=== PATIENT | male | born 1935 | race Caucasian/White ===

== ENCOUNTER 2018-04-01 09:49 | Day surgery (SDC) | payer MEDICARE, SELFPAY ==
--- NOTE | 2018-04-01 | PATH_ITS ---
[facility] Accession Number: [id number] . 01 Material submitted: . APPENDICILE ORIFICE . 02 Diagnosis: Appendiceal Orifice, Biopsy: Portions of colorectal mucosa with occasional lymphoid aggregates and no diagnostic abnormality. Additional levels through the block are non-contributory. MRV/04/07/2018 . 02 Electronically signed: . Amanda Zarco MD, Pathologist NPI- [id number] . 01 Gross description: . APPENDICILE ORIFICE: Received in formalin are 2 fragment(s) of mojica, soft tissue measuring 0.4 x 0.2 x 0.1 cm to 0.3 x 0.2 x 0.1 cm submitted entirely in 1 cassette(s) /TRC /TRC . 02 Pathologist provided ICD-10: K35.80 . 02 CPT . 431023 Performed at: 01 [facility] [address] [facility], [place], [place] [id number] MD Gilberto Reyes MD Phone: [phone] Performed at: 02 [facility] [place] [address] [place], [place] [id number] MD Wyatt Moreno MD Phone: [phone]
[2018-04-01 10:26] VITALS: BP 187/105; PULSE 53; RESP 16; TEMP 36.4; O2SAT 100; BMI 29.1
[2018-04-01] MEDS: SODIUM CHLORIDE 0.9% 1,000 ML 200 ML IV (10:35)
--- NOTE | 2018-04-01 11:03 | PM.HP.1 ---
History of Present Illness Chief complaint: [id number] Narrative: Lionel Adkins is a 82 year old male Last colonoscopy was probably 10 years ago. No history of polyps. No family history colon cancer. Patient History Medical History Bilateral cataracts (Resolved) Surgical History H/O endovascular stent graft for abdominal aortic aneurysm (Acute) History of appendectomy (Inactive) History of coronary artery bypass graft x 3 (Inactive) History of knee replacement procedure of right knee (Inactive) Hx laparoscopic cholecystectomy (Inactive) Meds Home Medications Medication Instructions Recorded Confirmed Type [CENTRAL-MARCUS] 1 tab PO QDAY #0 12/29/10 History ASPIRIN (#ASPIR 81) 81 mg PO Q DAY #0 03/28/12 04/01/18 History lisinopril 20 mg PO BID #180 tab 02/22/18 04/01/18 Rx hydrochlorothiazide 25 mg tablet 25 mg PO QDAY #90 tab 03/22/18 04/01/18 Rx atorvastatin 40 mg PO QDAY 04/01/18 04/01/18 History Allergies Allergy/AdvReac Type Severity Reaction Status Date / Time simvastatin [SIMVASTATIN] AdvReac Mild MUSCLE Verified 04/01/18 10:38 ACHES Review of Systems Review of Systems All systems reviewed & are unremarkable except as noted in HPI and below Exam Vital Signs (past 8 hours): Vital Signs - 8 hr 04/01/18 10:26 Temperature 97.5 F L Pulse Rate 53 L Respiratory Rate 16 Blood Pressure 187/105 H Pulse Oximetry 100 Pulse Oximetry 100 Narrative Exam Narrative: No apparent distress. Lungs are clear to auscultation without rales or rhonchi heart regular rate and rhythm without murmur gallop abdomen soft nontender without mass patient is alert and oriented x3 Assessment & Plan Plan: Plan: I have discussed the procedure and the rationale with the patient including risks of bleeding, perforation which would necessitate a major operation, failure to find remove all lesions and the potential to tattoo. They appeared to understand and wished to proceed.
--- NOTE | 2018-04-01 11:11 | P.HP_ITS ---
History of Present Illness Chief complaint: [id number] Narrative: Lionel Adkins is a 82 year old male Last colonoscopy was probably 10 years ago. No history of polyps. No family history colon cancer. Patient History Medical History Bilateral cataracts (Resolved) Surgical History H/O endovascular stent graft for abdominal aortic aneurysm (Acute) History of appendectomy (Inactive) History of coronary artery bypass graft x 3 (Inactive) History of knee replacement procedure of right knee (Inactive) Hx laparoscopic cholecystectomy (Inactive) Meds Home Medications Medication Instructions Recorded Confirmed Type [CENTRAL-MARCUS] 1 tab PO QDAY #0 12/29/10 History ASPIRIN (#ASPIR 81) 81 mg PO Q DAY #0 03/28/12 04/01/18 History lisinopril 20 mg PO BID #180 tab 02/22/18 04/01/18 Rx hydrochlorothiazide 25 mg tablet 25 mg PO QDAY #90 tab 03/22/18 04/01/18 Rx atorvastatin 40 mg PO QDAY 04/01/18 04/01/18 History Allergies Allergy/AdvReac Type Severity Reaction Status Date / Time simvastatin [SIMVASTATIN] AdvReac Mild MUSCLE Verified 04/01/18 10:38 ACHES Review of Systems Review of Systems All systems reviewed & are unremarkable except as noted in HPI and below Exam Vital Signs (past 8 hours): Vital Signs - 8 hr 3 04/01/18 10:26 Temperature 97.5 F L Pulse Rate 53 L Respiratory Rate 16 Blood Pressure 187/105 H Pulse Oximetry 100 Pulse Oximetry 100 Narrative Exam Narrative: No apparent distress. Lungs are clear to auscultation without rales or rhonchi heart regular rate and rhythm without murmur gallop abdomen soft nontender without mass patient is alert and oriented x3 Assessment & Plan Plan: Plan: I have discussed the procedure and the rationale with the patient including risks of bleeding, perforation which would necessitate a major operation, failure to find remove all lesions and the potential to tattoo. They appeared to understand and wished to proceed.
--- NOTE | 2018-04-01 11:11 | PM.PREOP ---
Pre-operative Note Interval Note Pre-op Check: History & Physical exam performed today H&P completed within 30 days and has changed as indicated here:: None ASA Class (for procedural sedation): II
[2018-04-01] MEDS: fentaNYL 250 MCG/5 ML INJ IV (11:34)
[2018-04-01] MEDS: MIDAZOLAM 5 MG/5 ML VIAL IV (11:35)
--- NOTE | 2018-04-01 11:37 | PM.OP.ENDO ---
Operative Date/Time/Diagnoses - Date of procedure: 04/01/18 Time of procedure: 11:37 Pre-op diagnosis: Screening examination. Last exam over 10 years ago. Post-op diagnosis: same (Slight irregular area of the cecum biopsied. May just be normal variant.) Procedure & Clinicians Study performed: Colonoscopy with cold biopsy Same procedure as scheduled: Yes Indications: Screening Surgeon: Vicente Santoro Procedure Notes SCOAP/Timeout: Performed Procedure in detail: The patient was placed in the left lateral decubitus position and underwent IV sedation directed by the surgeon consisting of fentanyl and Versed. Digital exam was normal. Prostate was flat.. The scope was inserted and advanced through the rectum into the sigmoid, descending, transverse, and ascending colon. I noted no lesions.. The cecum was reached identified by the ileocecal valve and the appendiceal opening. There was a slight irregularity in the cecum which I biopsied. Significance is unclear and may just be a normal variant. The scope was gradually brought out. No Polyps were found. The scope ultimately was retroflexed in the rectum. The appearance was[significant for internal hemorrhoids without ulceration.]. The scope was removed and the patient tolerated the procedure well Scope withdrawal time: 7 min Sedation minutes: 22 Findings: internal hemorrhoids Specimen(s): other (Cecal biopsy) Recommendations: Other recommendation (If cecal biopsies are not neoplastic patient does not need another colonoscopy.) Plan for aftercare: Follow-up by letter. Prep was excellent. Follow up: as needed Disposition: PACU
[2018-04-01 11:40] VITALS: BP 176/97; PULSE 53; RESP 12; TEMP 36.6; O2SAT 97
[2018-04-01 11:45] VITALS: BP 172/98; PULSE 53; RESP 13; O2SAT 97
[2018-04-01 11:50] VITALS: BP 178/92; PULSE 52; RESP 13; O2SAT 97
[2018-04-01 11:54] VITALS: BP 150/86; PULSE 65; RESP 16; TEMP 36.4; O2SAT 98
[2018-04-01 12:05] VITALS: BP 155/84; PULSE 54; RESP 15; TEMP 35.9; O2SAT 99
== END 2018-04-01 12:29 ==
LOC: ENDO 09:52
PROVIDERS: PCP Family Medicine; Visit Provider Specialist
PROC: 0DJD8ZZ Inspection of Lower Intestinal Tract, Via Natural or Artificial Opening Endoscopic (ICD-10-PCS; CPT 45378; principal; 2018-04-01 10:45)
DX: Z12.11 Encounter for screening for malignant neoplasm of colon (principal); K64.8 Other hemorrhoids
CPT/HCPCS: 45380; 88305; 99152; J2250; J3010

== ENCOUNTER → 2018-08-03 08:38 | Outpatient (CLI) | payer MEDICARE, SELFPAY ==
[2018-08-03 11:09] LABS: Estimated Glomerular Filt Rate > 60.0 mL/min (>60)
== END ==
PROVIDERS: Family Provider Internal Medicine Cardiovascular Disease; PCP Family Medicine; Visit Provider Student in an Organized Health Care Education/Training Program
DX: I71.4 Abdominal aortic aneurysm, without rupture (principal)
CPT/HCPCS: 36415; 82565

== ENCOUNTER → 2018-11-10 16:36 | Outpatient (CLI) | payer MEDICARE, SELFPAY ==
--- NOTE | 2018-11-10 16:44 | DI.RAD.S_ITS ---
PROCEDURE: XR KNEE LT 3V INDICATIONS: knee pain TECHNIQUE: 3 views of the knee were acquired. COMPARISON: [facility], , KNEE 1-2 VIEWS RIGHT, 12/29/2010, 13:06. FINDINGS: Bones: No fractures or dislocations. No suspicious bony lesions. There is mild medial compartment narrowing. Soft tissues: No joint effusion. No suspicious soft tissue calcifications. IMPRESSION: Trace degenerative change. No acute radiographic findings. If there is continued pain, followup exam or additional imaging such as MRI or CT could be performed for further assessment. Dictated by: Shabnam Smalls M.D. on 11/10/2018 at 17:00 Approved by: Shabnam Smalls M.D. on 11/10/2018 at 17:00
== END ==
PROVIDERS: Family Provider Internal Medicine Cardiovascular Disease; PCP Family Medicine; Visit Provider Family Medicine
DX: M25.562 Pain in left knee (principal)
CPT/HCPCS: 73562

== ENCOUNTER → 2019-01-13 09:40 | Outpatient (CLI) | payer MEDICARE, SELFPAY ==
--- NOTE | 2019-01-13 | DI.NM.S_ITS ---
PROCEDURE: NM BONE 3 PHASE RADIOPHARMACEUTICAL: 20.9 mCi Tc-99m MDP IV. INDICATIONS: PRESENCE OF RIGHT ARTIFICAL KNEE JOINT TECHNIQUE: Multiple bone scintigrams were obtained after intravenous injection of Tc-99m MDP, including flow, blood pool, and delayed images centered to the region of interest. COMPARISON: [facility] [place], CR, XR KNEE ARTHRITIC SERIES RT, 01/02/2019, 7:46. [facility], CR, XR KNEE LT 3V, 11/10/2018, 16:45. FINDINGS: A triple phase bone scan was obtained, including flow, blood pool and delayed images centered to knees. The flow and blood pool images demonstrate increased vascular activity around the left knee compared to the right knee. Delayed images demonstrate increased activity around the left knee, centered at the medial femorotibial compartment and patellofemoral compartment. There is photopenia in right knee related to right knee arthroplasty. There is low level increased activity around the right knee prosthesis, most likely post surgical in nature. IMPRESSION: 1. Increased flow, blood pool and delayed activity around the left knee. Differential diagnosis includes inflammatory arthritis and infectious etiology such as septic joint superimposed on degenerative joint disease. The comparison x-ray on 11/10/2008 showed mild degenerative joint disease and possible left knee joint effusion. Recommend clinical correlation. 2. Increased uptake around the right knee prosthesis is compatible with postsurgical changes. Dictated by: Toñito Clark M.D. on 01/13/2019 at 15:38 Approved by: Toñito Clark M.D. on 01/13/2019 at 17:47
== END ==
PROVIDERS: Family Provider Internal Medicine Cardiovascular Disease; PCP Family Medicine; Visit Provider Orthopaedic Surgery
DX: M17.11 Unilateral primary osteoarthritis, right knee (principal); Z96.651 Presence of right artificial knee joint
CPT/HCPCS: 78315; A9503

== ENCOUNTER → 2020-03-29 07:49 | Outpatient (CLI) | payer MEDICARE, SELFPAY ==
[2020-03-29 09:09] LABS: Estimated Glomerular Filt Rate > 60.0 mL/min (>60)
== END ==
PROVIDERS: Family Provider Internal Medicine Cardiovascular Disease; PCP Family Medicine; Referring Provider Student in an Organized Health Care Education/Training Program; Visit Provider Student in an Organized Health Care Education/Training Program
DX: I71.4 Abdominal aortic aneurysm, without rupture (principal)
CPT/HCPCS: 82565

== ENCOUNTER → 2020-03-29 07:55 | Outpatient (CLI) | payer MEDICARE, SELFPAY ==
[2020-03-29 09:10] LABS: Alanine Aminotransferase 15 IU/L (<50); Albumin 3.9 g/dL (3.5-5.0); Albumin Globulin Ratio 1.4 (1.0-2.8); Alkaline Phosphatase 92 U/L (38-126); Aspartate Aminotransferase 37 IU/L (17-59); Blood Urea Nitrogen 22 mg/dL (9-20); Calcium 9.8 mg/dL (8.4-10.2); Carbon Dioxide 32 mmol/L (22-32); Chloride 102 mmol/L (98-107); Cholesterol 126 mg/dL (140-199); Estimated Glomerular Filt Rate > 60.0 mL/min (>60); Globulin 2.8 g/dL (1.7-4.1); Glucose 105 mg/dL (80-110); HDL Cholesterol 40 mg/dL (40-60); HEMOLYSIS < 15 (0-50); LDL Cholesterol Calculated 69 mg/dL (<100); Potassium 4.1 mmol/L (3.4-5.1); Sodium 140 mmol/L (137-145); Total Protein 6.7 g/dL (6.3-8.2); Triglycerides 83 mg/dL (35-150)
== END ==
PROVIDERS: Family Provider Internal Medicine Cardiovascular Disease; PCP Family Medicine; Referring Provider Internal Medicine Cardiovascular Disease; Visit Provider Internal Medicine Cardiovascular Disease
DX: I25.10 Atherosclerotic heart disease of native coronary artery without angina pectoris (principal); I71.4 Abdominal aortic aneurysm, without rupture
CPT/HCPCS: 36415; 80053; 80061; 82565

== ENCOUNTER → 2020-04-02 08:00 | Outpatient (CLI) | payer MEDICARE, SELFPAY ==
--- NOTE | 2020-04-02 | DI.ECHO.S_ITS ---
[facility]---------+ [facility] +---------+ : : [address] : : : : [id number] : : : : Phone: [phone] Echocardiogram Report + + :Name: MINA AC Study Date: 04/02/2020 Height: 72 in : :[facility] Weight: 212 lb : : Gender: Male BSA: 2.2 m2 : :: 1935 Age: 84 yrs BP: 156/80 mmHg: :Reason For Study: Ascending aorta dialation : :Ordering Physician: Fatmata : :Peter Velázquez Performed By: Berta Kurtz : :Referring: FATMATA GREEN : + + Interpretation Summary The left ventricle is normal in size. The ejection fraction is estimated to be 50-55%. Left ventricular function has slightly worsened compared to the previous exam. There appears to be more pronounced hypokinesis in the basal inferior wall. This is more obvious in comparison to prior study on 03/17/2019. The aortic root is borderline dilated. The ascending aorta is moderately enlarged. Procedure: Comparison is made with the echocardiogram of 03/17/2019. A two- dimensional transthoracic echocardiogram with color flow and Doppler was performed in limited views only. The study quality was technically adequate. The patient was in sinus bradycardia with heart rates between 51-62 bpm during the exam. Left Ventricle: The left ventricle is normal in size. Left ventricular wall thickness is borderline increased. The ejection fraction is estimated to be 50-55%. Left ventricular function has slightly worsened compared to the previous exam. There appears to be more pronounced hypokinesis in the basal inferior wall. This is more obvious in comparison to prior study on 03/17/2019. Atria: The left atrium is mildly dilated. The right atrium is mildly dilated. Aortic Valve: The aortic valve is trileaflet. The aortic valve opens well. There is mild aortic regurgitation. Great Vessels: The aortic root is borderline dilated. The ascending aorta is moderately enlarged. The aortic arch is normal in size. Pericardium/ Pleura There is no pericardial effusion. There is no pleural effusion. MMode/2D Measurements & Calculations LVIDd: 5.7 cm LVOT diam: 2.1 cm LVIDs: 4.0 cm Ao root diam: 4.0 cm FS: 28.8 % asc Aorta Diam: 4.5 cm IVSd: 1.1 cm Ao Arch Diam (Prox Trans): 3.0 cm LVPWd: 0.92 cm LV abel. diameter/BSA (cm/m^2): 2.6 LV sys. diameter/BSA (cm/m^2): 1.9 LA A2 area: 23.2 cm2 RA long axis: 6.3 cm LA A4 area: 23.4 cm2 RA area: 24.9 cm2 LA length (vol): 5.9 cm RA vol: 83.7 ml LA vol: 77.8 ml RA : 38.3 ml/m2 LA vol index: 35.6 ml/m2 Doppler Measurements & Calculations Ao V2 max: 110.5 cm/sec LVOT Max Yung: 75.7 cm/sec Ao V2 mean: 74.7 cm/sec LV V1 max P.3 mmHg Ao max P.9 mmHg LV V1 VTI: 17.3 cm Ao mean P.6 mmHg ISAEL(I,D): 2.4 cm2 Ao V2 VTI: 24.8 cm ISAEL(V,D): 2.3 cm2 sev ratio: 0.70 ISAEL indexed to BSA (cm^2/m^2): 1.1 SV(LVOT): 58.7 ml Reading Physician:01:13 PM
== END ==
PROVIDERS: Family Provider Internal Medicine Cardiovascular Disease; PCP Family Medicine; Referring Provider Internal Medicine Cardiovascular Disease; Visit Provider Internal Medicine Cardiovascular Disease
DX: I07.1 Rheumatic tricuspid insufficiency (principal); I77.810 Thoracic aortic ectasia
CPT/HCPCS: 93307

== ENCOUNTER → 2020-06-13 10:00 | Outpatient (CLI) | payer MEDICARE, SELFPAY ==
[2020-06-13 12:40] LABS: Prostate Specific Antigen Scrn 4.55 ng/mL (0.1-4.0)
== END ==
PROVIDERS: Family Provider Internal Medicine Cardiovascular Disease; PCP Family Medicine; Referring Provider Family Medicine; Visit Provider Family Medicine
DX: I25.10 Atherosclerotic heart disease of native coronary artery without angina pectoris (principal); Z12.5 Encounter for screening for malignant neoplasm of prostate
CPT/HCPCS: 36415; G0103

== ENCOUNTER → 2020-09-12 17:02 | Outpatient (CLI) | payer MEDICARE, SELFPAY ==
[2020-09-13 07:36] LABS: PSA Free % 18.3 % (.); PSA, Total 5.4 ng/mL (0.0-4.0)
== END ==
PROVIDERS: Family Provider Internal Medicine Cardiovascular Disease; PCP Family Medicine; Referring Provider Family Medicine; Visit Provider Family Medicine
DX: R97.20 Elevated prostate specific antigen [PSA] (principal)
CPT/HCPCS: 36415; 84153; 84154

== ENCOUNTER → 2020-11-19 11:16 | Outpatient (CLI) | payer MEDICARE, SELFPAY ==
--- NOTE | 2020-11-19 11:20 | DI.RAD.S_ITS ---
PROCEDURE: XR RIBS LT MIN 3V W CXR1V INDICATIONS: pain and TTP L lower posterior ribs s/p trauma 6 days ago TECHNIQUE: To views of the left ribs were acquired, along with a single view chest. COMPARISON: None. FINDINGS: Surgical changes and devices: Prior sternotomy wires, presumed prior CABG. Aortic stent graft partially visualized at the upper abdomen.. Bones and chest wall: No fractures or dislocations. No suspicious bony lesions. Overlying soft tissues appear unremarkable. Lungs and pleura: No pleural effusions or pneumothorax. Lungs appear clear. Mediastinum: Mediastinal contours appear normal. Heart size is normal. IMPRESSION: No definite rib trauma found. Please note that acute rib fractures may not be identifiable initially on less significantly displaced. Follow-up plain films may be warranted. Dictated by: Anson Medrano M.D. on 11/19/2020 at 12:10 Approved by: Anson Medrano M.D. on 11/19/2020 at 12:11
--- NOTE | 2020-11-19 11:20 | DI.RAD.S_ITS ---
PROCEDURE: XR KNEE LT 3V INDICATIONS: knee pain TECHNIQUE: 3 views of the knee were acquired. COMPARISON: [facility], [facility], XR KNEE LT 3V, 11/10/2018, 16:45. [facility], [facility], KNEE 1-2 VIEWS RIGHT, 12/29/2010, 13:06. FINDINGS: Bones: No fractures or dislocations. No suspicious bony lesions. Soft tissues: No joint effusion. No suspicious soft tissue calcifications. IMPRESSION: Mild medial compartment joint space narrowing, mild osteoarthritis. No trauma. Dictated by: Anson Medrano M.D. on 11/19/2020 at 12:19 Approved by: Anson Medrano M.D. on 11/19/2020 at 12:58
== END ==
PROVIDERS: Family Provider Internal Medicine Cardiovascular Disease; PCP Internal Medicine; Referring Provider Internal Medicine; Visit Provider Registered Nurse Diabetes Educator
DX: M25.562 Pain in left knee (principal); M17.12 Unilateral primary osteoarthritis, left knee; R07.81 Pleurodynia; E78.2 Mixed hyperlipidemia; I10 Essential (primary) hypertension; R97.20 Elevated prostate specific antigen [PSA]
CPT/HCPCS: 71101; 73562

== ENCOUNTER → 2020-11-20 08:26 | Outpatient (CLI) | payer MEDICARE, SELFPAY ==
[2020-11-20 08:41] LABS: Hematocrit 42.5 % (41-53); Hemoglobin 14.3 g/dL (13.5-17.5); Mean Corpuscular HGB Conc 33.6 % (30-36); Mean Corpuscular Hemoglobin 30.7 PG (26-34); Mean Corpuscular Volume 91.3 fL (80-100); Platelet Count 160 X10^3/uL (150-400); Red Blood Cell Count 4.65 X10^6/uL (4.5-5.9); Red Cell Distribution Width 13.7 % (11.6-14.8); White Blood Cell Count 8.2 X10^3/uL (4.5-11.0)
[2020-11-20 08:50] LABS: Appearance Urine UA CLEAR; Bilirubin Urine UA NEGATIVE (NEGATIVE); Color Urine UA YELLOW; Glucose Urine UA NEGATIVE (Negative); Ketones Urine UA NEGATIVE (NEGATIVE); Leukocyte Esterase Urine UA NEGATIVE (NEGATIVE); Nitrite Urine UA NEGATIVE (Negative); Occult Blood Urine UA 3+ (Negative); Protein Urine UA TRACE (Negative); Urobilinogen Urine UA 0.2 E.U./dL (0.2)
[2020-11-20 09:03] LABS: Bacteria Urine Moderate (10-30); Culture Indicated Urine Cult Not Indicated; Hyaline Casts Urine 1-5/LPF; Mucus Urine 1+ (Negative); RBC Urine 10-30/HPF (0-5/HPF); Squamous Epithelial Cell Urine 0-1 /HPF (0-5/HPF); WBC Urine 1-5/HPF (0-5/HPF)
[2020-11-20 15:53] LABS: Alanine Aminotransferase 19 IU/L (<50); Albumin 3.7 g/dL (3.5-5.0); Albumin Globulin Ratio 1.6 (1.0-2.8); Alkaline Phosphatase 85 U/L (38-126); Aspartate Aminotransferase 35 IU/L (17-59); BUN Creatinine Ratio 23.8 (6-22); Bilirubin Total 0.6 mg/dL (0.2-1.3); Blood Urea Nitrogen 24 mg/dL (9-20); Calcium 9.5 mg/dL (8.4-10.2); Carbon Dioxide 34 mmol/L (22-32); Chloride 102 mmol/L (98-107); Cholesterol 129 mg/dL (140-199); Estimated Glomerular Filt Rate > 60.0 mL/min (>60); Globulin 2.3 g/dL (1.7-4.1); Glucose 125 mg/dL (80-110); HDL Cholesterol 41 mg/dL (40-60); HEMOLYSIS < 15 (0-50); LDL Cholesterol Calculated 46 mg/dL (<100); Potassium 3.5 mmol/L (3.4-5.1); Sodium 139 mmol/L (137-145); Triglycerides 210 mg/dL (35-150)
[2020-11-20 16:23] LABS: Prostate Specific Antigen 6.55 ng/mL (0.10-4.00)
== END ==
PROVIDERS: Registered Nurse Diabetes Educator; Family Provider Internal Medicine Cardiovascular Disease; PCP Internal Medicine; Referring Provider Internal Medicine; Visit Provider Internal Medicine
DX: R10.9 Unspecified abdominal pain (principal); E78.2 Mixed hyperlipidemia; R82.71 Bacteriuria; I10 Essential (primary) hypertension; R97.20 Elevated prostate specific antigen [PSA]; Z12.5 Encounter for screening for malignant neoplasm of prostate
CPT/HCPCS: 36415; 80053; 80061; 81001; 84153; 85027; 87086

== ENCOUNTER → 2020-11-21 09:41 | Outpatient (CLI) | payer MEDICARE, SELFPAY ==
--- NOTE | 2020-11-21 09:45 | DI.CT.S_ITS ---
PROCEDURE: CT ABDOMEN PELVIS WO/W CON INDICATIONS: trauma to L flank 7 days ago/pain/hematuria TECHNIQUE: After the administration of oral contrast, 5 mm thick sections acquired from the diaphragms to the iliac crests. After the administration of intravenous contrast, 5 mm thick sections acquired from the diaphragms to the symphysis. 5 mm thick coronal and sagittal reformats were acquired. For radiation dose reduction, the following was used: automated exposure control, adjustment of mA and/or kV according to patient size. COMPARISON: None. FINDINGS: Image quality: Excellent. ABDOMEN: Lung bases: Lung bases are clear. Heart size is normal. Solid organs: Liver is normal in size and enhancement. There is a 1.8 cm cyst within the superior left liver parenchyma between the confluence of the left and middle hepatic veins Gallbladder appears previously resected . Biliary system is non-dilated. Pancreas enhances normally. Spleen is normal in size and enhancement. No adrenal nodules. Both kidneys are normal in size. No hydronephrosis or nephrolithiasis. Bowel and peritoneum: Stomach, small and large bowel loops are normal in caliber and wall thickness. No free fluid or air. Nodes and vessels: No retroperitoneal or mesenteric adenopathy by size criteria. Aorta and inferior vena are normal in caliber. An aortic stent graft is present extending from the renal level inferiorly into the pelvis bilaterally Miscellaneous: No ventral hernias. PELVIS: Genitourinary: Bladder wall thickness is normal. Miscellaneous: No inguinal hernias or adenopathy. Bones: No suspicious bony lesions. No vertebral body compression fractures. IMPRESSION: No trauma found, no evidence of perinephric hematoma. Aortic stent graft, bifurcating into the pelvis bilaterally. No operative complication seen. Dictated by: Anson Medrano M.D. on 11/21/2020 at 11:02 Approved by: Anson Medrano M.D. on 11/21/2020 at 11:04
== END ==
PROVIDERS: Family Provider Internal Medicine Cardiovascular Disease; PCP Internal Medicine; Referring Provider Registered Nurse Diabetes Educator; Visit Provider Registered Nurse Diabetes Educator
DX: S39.91XA Unspecified injury of abdomen, initial encounter (principal); R10.9 Unspecified abdominal pain; R31.29 Other microscopic hematuria; X58.XXXA Exposure to other specified factors, initial encounter
CPT/HCPCS: 74178; Q9967

== ENCOUNTER → 2021-03-25 08:30 | Outpatient (CLI) | payer MEDICARE, SELFPAY ==
[2021-03-25 10:38] LABS: Prostate Specific Antigen 5.04 ng/mL (0.10-4.00)
== END ==
PROVIDERS: Family Provider Internal Medicine Cardiovascular Disease; PCP Internal Medicine; Referring Provider Internal Medicine; Visit Provider Internal Medicine
DX: R97.20 Elevated prostate specific antigen [PSA] (principal)
CPT/HCPCS: 36415; 84153

== ENCOUNTER → 2021-09-26 09:35 | Outpatient (CLI) | payer MEDICARE, SELFPAY ==
[2021-09-26 12:10] LABS: Alanine Aminotransferase 14 IU/L (<50); Albumin 3.9 g/dL (3.5-5.0); Albumin Globulin Ratio 1.6 (1.0-2.8); Alkaline Phosphatase 93 U/L (38-126); Aspartate Aminotransferase 29 IU/L (17-59); BUN Creatinine Ratio 21.4 (6-22); Bilirubin Total 0.9 mg/dL (0.2-1.3); Blood Urea Nitrogen 21 mg/dL (9-20); Calcium 9.8 mg/dL (8.4-10.2); Carbon Dioxide 33 mmol/L (22-32); Chloride 100 mmol/L (98-107); Cholesterol 120 mg/dL (140-199); Estimated Glomerular Filt Rate > 60.0 mL/min (>60); Globulin 2.4 g/dL (1.7-4.1); Glucose 95 mg/dL (80-110); HDL Cholesterol 45 mg/dL (40-60); HEMOLYSIS < 15 (0-50); LDL Cholesterol Calculated 61 mg/dL (<100); Potassium 3.8 mmol/L (3.4-5.1); Sodium 140 mmol/L (137-145); Total Protein 6.3 g/dL (6.3-8.2); Triglycerides 68 mg/dL (35-150)
[2021-09-26 12:31] LABS: Prostate Specific Antigen 9.31 ng/mL (0.10-4.00)
== END ==
PROVIDERS: Family Provider Internal Medicine Cardiovascular Disease; PCP Internal Medicine; Referring Provider Internal Medicine; Visit Provider Internal Medicine
DX: E78.2 Mixed hyperlipidemia (principal); R97.20 Elevated prostate specific antigen [PSA]; I10 Essential (primary) hypertension
CPT/HCPCS: 36415; 80053; 80061; 84153

== ENCOUNTER → 2022-03-20 07:57 | Outpatient (CLI) | payer MEDICARE, SELFPAY ==
[2022-03-20 08:56] LABS: Cholesterol 116 mg/dL (140-199); HDL Cholesterol 42 mg/dL (40-60); LDL Cholesterol Calculated 59 mg/dL (<100); Triglycerides 75 mg/dL (35-150)
== END ==
PROVIDERS: Family Provider Internal Medicine Cardiovascular Disease; PCP Internal Medicine; Referring Provider Internal Medicine Cardiovascular Disease; Visit Provider Internal Medicine Cardiovascular Disease
DX: E78.2 Mixed hyperlipidemia (principal)
CPT/HCPCS: 36415; 80061

== ENCOUNTER → 2022-04-03 10:58 | Outpatient (CLI) | payer MEDICARE, SELFPAY ==
[2022-04-03 12:15] LABS: Alanine Aminotransferase 13 IU/L (<50); Albumin 3.9 g/dL (3.5-5.0); Albumin Globulin Ratio 1.6 (1.0-2.8); Alkaline Phosphatase 81 U/L (38-126); Aspartate Aminotransferase 32 IU/L (17-59); BUN Creatinine Ratio 28.9 (6-22); Blood Urea Nitrogen 26 mg/dL (9-20); Calcium 9.4 mg/dL (8.4-10.2); Carbon Dioxide 30 mmol/L (22-32); Chloride 103 mmol/L (98-107); Estimated Glomerular Filt Rate > 60 mL/min (>60); Globulin 2.5 g/dL (1.7-4.1); Glucose 100 mg/dL (80-110); HEMOLYSIS < 15 (0-50); Potassium 3.9 mmol/L (3.4-5.1); Sodium 139 mmol/L (137-145); Total Protein 6.4 g/dL (6.3-8.2)
== END ==
PROVIDERS: Family Provider Internal Medicine Cardiovascular Disease; PCP Internal Medicine; Referring Provider Internal Medicine Cardiovascular Disease; Visit Provider Internal Medicine Cardiovascular Disease
DX: E78.2 Mixed hyperlipidemia (principal)
CPT/HCPCS: 36415; 80053

== ENCOUNTER → 2022-05-09 08:54 | Outpatient (CLI) | payer MEDICARE, SELFPAY ==
[2022-05-09 11:47] LABS: Prostate Specific Antigen 7.69 ng/mL (0.10-4.00)
== END ==
PROVIDERS: Family Provider Internal Medicine Cardiovascular Disease; PCP Internal Medicine; Referring Provider Urology; Visit Provider Urology
DX: R97.20 Elevated prostate specific antigen [PSA] (principal)
CPT/HCPCS: 36415; 84153

== ENCOUNTER → 2022-05-20 13:07 | Outpatient (CLI) | payer MEDICARE, SELFPAY ==
[2022-05-20 13:34] LABS: Appearance Urine UA CLEAR; Bilirubin Urine UA NEGATIVE (NEGATIVE); Color Urine UA YELLOW; Glucose Urine UA NEGATIVE (Negative); Ketones Urine UA NEGATIVE (NEGATIVE); Leukocyte Esterase Urine UA TRACE (NEGATIVE); Nitrite Urine UA NEGATIVE (Negative); Occult Blood Urine UA 1+ (Negative); Protein Urine UA TRACE (Negative); Urobilinogen Urine UA 0.2 E.U./dL (0.2); pH Urine UA 5.5 (4.5-8.0)
[2022-05-20 13:39] LABS: RBC Urine 5-10/HPF (0-5/HPF); WBC Urine 1-5/HPF (0-5/HPF)
[2022-05-20 13:40] LABS: Bacteria Urine None Seen; Culture Indicated Urine Cult Not Indicated; Squamous Epithelial Cell Urine 5-10 /HPF (0-5/HPF)
== END ==
PROVIDERS: Family Provider Internal Medicine Cardiovascular Disease; PCP Internal Medicine; Referring Provider Urology; Visit Provider Urology
DX: R31.29 Other microscopic hematuria (principal)
CPT/HCPCS: 81003; 81015

== ENCOUNTER → 2022-05-26 11:44 | Outpatient (CLI) | payer MEDICARE, SELFPAY ==
[2022-05-26 12:53] LABS: Appearance Urine UA CLEAR; Bilirubin Urine UA NEGATIVE (NEGATIVE); Color Urine UA YELLOW; Glucose Urine UA NEGATIVE (Negative); Ketones Urine UA NEGATIVE (NEGATIVE); Leukocyte Esterase Urine UA NEGATIVE (NEGATIVE); Nitrite Urine UA NEGATIVE (Negative); Occult Blood Urine UA TRACE-LYSED (Negative); Protein Urine UA NEGATIVE (Negative); Specific Gravity Urine UA 1.015 (1.000-1.035); Urobilinogen Urine UA 0.2 E.U./dL (0.2); pH Urine UA 5.5 (4.5-8.0)
== END ==
PROVIDERS: Family Provider Internal Medicine Cardiovascular Disease; PCP Internal Medicine; Referring Provider Urology; Visit Provider Urology
DX: R31.29 Other microscopic hematuria (principal)
CPT/HCPCS: 81003

== ENCOUNTER → 2022-09-08 15:57 | Outpatient (CLI) | payer MEDICARE, SELFPAY ==
--- NOTE | 2022-09-08 15:58 | DI.MRI.S_ITS ---
PROCEDURE: MR LUMBAR SPINE WO CON INDICATIONS: LBP with RIght L4 radic, Waling intolerance TECHNIQUE: Noncontrast sagittal T1 spin echo and T2 fast echo, sagittal STIR, and T2 fast spin echo through the lumbar spine. In cases with scoliosis, additional coronal T2 fast spin echo may be performed. COMPARISON: [facility] [place], CR, XR LUMBAR SPINE 2 OR 3 VIEWS, 07/24/2021, 13:33. FINDINGS: Image quality: Degraded by metallic artifact and motion Alignment: 3-4 millimeters of C2 on C3 retrolisthesis and 2-3 millimeters of C3 on C4 retrolisthesis. 4-5 millimeters of C4 on C5 anterolisthesis. Marrow: No acute fracture. Scattered Modic changes and disc desiccation. Cord: Conus terminates in appropriate position with normal appearance of the cauda equina nerve roots. Soft tissues: Aortic hardware is not well assessed. There are renal cysts. Metallic artifact obscures the retroperitoneal structures. No paravertebral fluid collections. Specific levels: T12-L1: No stenosis. L1-L2: Small diffuse disc bulge and mild facet arthropathy. No stenosis. L2-L3: Moderate central narrowing, involving both subarticular recesses. Moderate facet arthropathy. There is a diffuse disc bulge and posteriorly projecting osteophyte, asymmetric toward the right. There is also ligamentum flavum hypertrophy. Severe right neural foraminal narrowing. Flnq-xm-cqremayq left neural foraminal narrowing. L3-L4: There is a diffuse disc bulge with moderate to severe central narrowing affecting both subarticular recesses. Moderate to severe facet arthropathy. Arfy-wu-llcppuxd right and left neural foraminal narrowing. Ligamentum flavum hypertrophy. L4-L5: Severe central narrowing affecting both subarticular recesses. Disc uncovering. Ligamentum flavum hypertrophy. Diffuse disc bulge and moderate to severe facet arthropathy. Rnsq-at-jefrmlin bilateral neural foraminal narrowing. L5-S1: Diffuse disc bulge and facet arthropathy. No high-grade stenosis. Mild left neural foraminal narrowing. IMPRESSION: Multifactorial spondylosis as described above worst at L3-L4 and L4-L5 with areas of critical narrowing. Multilevel spondylolisthesis. Imaging limitations as above. Dictated by: Sterling Khanna M.D. on 09/08/2022 at 17:13 Approved by: Sterling Khanna M.D. on 09/08/2022 at 17:21
== END ==
PROVIDERS: Family Provider Internal Medicine Cardiovascular Disease; PCP Internal Medicine; Referring Provider Physical Medicine & Rehabilitation; Visit Provider Physical Medicine & Rehabilitation
DX: M48.062 Spinal stenosis, lumbar region with neurogenic claudication (principal); M47.816 Spondylosis without myelopathy or radiculopathy, lumbar region; M43.16 Spondylolisthesis, lumbar region; M47.817 Spondylosis without myelopathy or radiculopathy, lumbosacral region; M48.07 Spinal stenosis, lumbosacral region
CPT/HCPCS: 72148

== ENCOUNTER 2022-10-20 14:22 | Outpatient (CLI) | payer MEDICARE, SELFPAY ==
[2022-10-20] VITALS (7 sets, daily range): BP systolic 178–208; BP diastolic 88–114; PULSE 50–70; RESP 9–20; TEMP 36.6; O2SAT 99–100
--- NOTE | 2022-10-20 14:25 | DI.RAD.S_ITS ---
PROCEDURE: PAIN L/S TRANSFORAMINAL INJECT INDICATIONS: SPONDYLOSIS COMPARISON: None. FINDINGS: Fluoroscopic spot filming was performed to verify placement of spinal needles at the right L4-5 level(s), as labeled on the films. Appropriate location(s) of the needle tip(s) was confirmed by injection of iodinated contrast. Multiple surgical coils noted in the lower abdomen. Partially imaged endovascular stent of the distal abdominal aorta and bilateral common iliac arteries. IMPRESSION: Fluoroscopic support for lumbosacral transforaminal injection. Please see separate procedure note for further details. Dictated by: Angel Ziegler M.D. on 10/21/2022 at 10:26 Approved by: Angel Ziegler M.D. on 10/21/2022 at 10:29
[2022-10-20] MEDS: MIDAZOLAM 2 MG/2 ML VIAL IV (16:01)
[2022-10-20] MEDS: DEXAMETHASONE 10 MG/ML VIAL 20 MG INJ (16:12)
[2022-10-20] MEDS: BUPIVACAINE 0.25% (PF) VIAL 2 ML INJ (16:12)
[2022-10-20] MEDS: BETAMETHASONE 30 MG/5 ML MDV 6 MG INJ (16:12)
[2022-10-20] MEDS: IOPAMIDOL 15 ML VIAL 3 ML INJ (16:12)
--- NOTE | 2022-10-20 16:39 | P.PCN_ITS ---
Date/Time/Diagnoses Date of procedure: 10/20/22 Time of procedure: 16:39 Pre-procedure diagnosis: 1. FORAMINAL STENOSIS WITH LE SYMPTOMS Post-procedure diagnosis: same Procedure Notes Procedure: 1. FLUOROSCOPICALLY GUIDED CONTRAST CONTROLLED TRANSFORAMINAL EPIDURAL STEROID INJECTION - RIGHT L4/5 TFESI Indications: Lionel is referred by Dr. Mayorga for treatment of Foraminal Stenosis with Right LE Symptoms Physician: Tyshawn Abdullahi Total Fluoroscopy time (seconds): 9 Total sedation minutes: 13 Complications: none Procedure in detail & Post-procedure care: FINDINGS Foraminal Nerve Root Compression secondary to disc disease and facet hypertrophy DESCRIPTION OF PROCEDURE Following review of allergy and review of potential side effects and complications, including, but not necessarily limited to, infection, allergic reaction, local tissue breakdown, stroke, temporary or permanent nerve injury, paralysis, and possible , the patient indicated that the patient understood and agreed to proceed. An informed consent document was signed by the patient, witnessed by a nurse, and placed in the patient's chart. Additionally, other treatment options including medications, modalities, and physical therapy were reviewed with the patient. After review of previous anaesthesic history and IV conscious sedation the patient was deemed safe to proceed with today?s procedure with IV conscious sedation as ASA class II designation. Safety time-out was performed to confirm patient ID, procedure to be performed and site of procedure. IV sedation was accomplished with a combination of 2mg of Versed was administered by the RN after DO order, titrated to patient comfort during the course of the procedure while the patient remained responsive to all verbal commands In the prone position following sterile prep and drape of the lumbar region, the right L4/5 posterior neuroforamen was identified fluoroscopically. The skin was anesthetized via a 25-gauge 1.5-inch needle with 1% lidocaine solution. At this point, a 25-gauge 3.5-inch spinal needle was atraumatically introduced and advanced under fluoroscopic guidance through the posterior right L4/5 neuroforamen to approximately the anterior aspect of the canal. Depth was confirmed on lateral view. Following negative aspiration, injection of approximately 1.5cc of Isovue 200 under live fluoroscopy in the AP view c onfirmed excellent flow along the nerve root, into the epidural space without vascular or intrathecal uptake observed Radiological data, including multiple fluoroscopic views of the lumbosacral spi ne, reveal a spinal needle at the right L4/5 posterior neuroforamen. Subsequent views show flow of contrast material flowing superiorly and inferiorly along the nerve root confirming epidural flow. Subsequently, a test dose of 1.5 cc of 1% lidocaine solution was administered and patient was observed for two minutes for signs or symptoms of complications, including abdominal pain, shortness of breath, bilateral upper or lower extremity weakness, nausea and vomiting, prior to steroid injection. At this point, a total of 3cc or 20mg of dexamethasone and 6mg of betamethasone was injected without incident. The procedure tolerated the procedure well without signs or symptoms of complications prior to transfer to the recovery area continued monitoring without incident. The patient was then transferred to the recovery area where they were observed for an appropriate time after the injection. The patient reported a VAS score of 7 prior to the procedure and a post- procedure VAS of 0. POST OP INSTRUCTIONS The patient was provided a Pain Log to continue to record their response to the target-specific procedure prior to follow-up visit with their referring physician. Additionally, specific post-injection care instructions and a contact number to our office were provided if concerns arise regarding possible complications associated with the procedure are suspected.
== END 2022-10-20 16:39 | disposition home or self-care (01) ==
LOC: RAD 14:23
PROVIDERS: Family Provider Internal Medicine Cardiovascular Disease; PCP Internal Medicine; Referring Provider Physical Medicine & Rehabilitation; Visit Provider Physical Medicine & Rehabilitation
DX: M48.062 Spinal stenosis, lumbar region with neurogenic claudication (principal); M51.16 Intervertebral disc disorders with radiculopathy, lumbar region
CPT/HCPCS: 64483; 99152; J0702; J1100; J2250; J3490

== ENCOUNTER 2022-10-28 12:51 | Emergency (ER) | payer MEDICARE, SELFPAY ==
[2022-10-28] VITALS (10 sets, daily range): BP systolic 147–163; BP diastolic 69–77; PULSE 48–55; RESP 14–25; O2SAT 97–99; BMI 28.3
--- NOTE | 2022-10-28 13:02 | DI.CT.S_ITS ---
PROCEDURE: CT HEAD/BRAIN WO CON INDICATIONS: confusion TECHNIQUE: Noncontrast 4.5 mm thick angled axial sections acquired from the foramen magnum to the vertex, with coronal and sagittal reformats. For radiation dose reduction, the following was used: automated exposure control, adjustment of mA and/or kV according to patient size. COMPARISON: None. FINDINGS: Image quality: Excellent. CSF spaces: Basal cisterns are patent. No extra-axial fluid collections. The ventricles are symmetric in size and shape. Brain: No intracranial bleeds or masses. There is cerebral volume loss for age, with resultant ventricular and sulcal prominence. There are periventricular and deep white matter chronic small vessel ischemic changes. There is intracranial internal carotid artery atherosclerosis. Skull and face: Calvarium and visualized facial bones appear intact, without suspicious lesions. Sinuses: Visualized sinuses and mastoids are clear. IMPRESSION: No evidence acute intracranial process. Dictated by: Fabricio Zhang M.D. on 10/28/2022 at 14:02 Approved by: Fabricio Zhang M.D. on 10/28/2022 at 14:04
--- NOTE | 2022-10-28 13:03 | DI.CT.S_ITS ---
PROCEDURE: CT ANGIO HEAD AND NECK INDICATIONS: confusion TECHNIQUE: After the administration of intravenous contrast, 1 mm thick sections acquired from the aortic arch through the [place]. Post-contrast 4.5 mm thick sections then re-acquired from the foramen magnum to the vertex. 3-dimensional cvmwxji-eykjcibcs-byuwatgufu (MIP) and/or volume rendering reformats were acquired of the central intracranial vasculature and neck separately. For radiation dose reduction, the following was used: automated exposure control, adjustment of mA and/or kV according to patient size. COMPARISON: [facility], CT, CT HEAD/BRAIN WO CON, 10/28/2022, 13:26. FINDINGS: Image quality: Excellent. BRAIN: CSF spaces: Ventricles are normal in size and shape. Basal cisterns are patent. No extra-axial fluid collections. Brain: No midline shift. No intracranial bleeds or masses. Alex-white matter interface appears intact. Skull and face: Calvarium and facial bones appear intact, without suspicious lesions. Orbits appear normal. Sinuses: Sinuses and mastoids are clear. HEAD CT ANGIOGRAPHY: Anterior circulation: Intracranial internal carotid arteries are normal in size and flow. The flow within the paired anterior cerebral arteries is normal and symmetric. The flow within the middle cerebral arteries is normal and symmetric. The anterior communicating artery is seen. No aneurysms are seen. Posterior circulation: Visualized portions of the vertebral arteries demonstrate normal caliber, and join to form a normal appearing basilar artery. Flow within the posterior cerebral arteries is normal and symmetric. No aneurysms are seen. NECK CT ANGIOGRAPHY: Carotid system: The great vessels demonstrate a conventional anatomy as they arise from the aortic arch. The origins of the common carotid arteries appear patent. The common carotid arteries demonstrate normal caliber and courses. The bifurcation regions are both widely patent. Very mild bilateral internal carotid artery stenotic disease, non flow limiting. Internal carotid arteries have a normal course. Posterior circulation: The origins of the vertebral arteries both appear widely patent. The more superior extracranial portions of both vertebral arteries also demonstrate normal courses and calibers. They join to form a normal appearing basilar artery. Soft tissues: Visualized neck soft tissues demonstrate no suspicious abnormalities. Upper thoracic esophagus is dilated and contains debris. Bones: No suspicious bony lesions. Visualized cervical spine appears normally aligned. IMPRESSION: 1. No evidence of acute stroke, hemorrhage, or mass. 2. Unremarkable CTA head. No stenosis, aneurysm, occlusion, or focal filling defect. 3. Very mild bilateral internal carotid artery stenotic disease. 4. Dilated upper thoracic esophagus containing debris. Comment: Consider nonemergent CT chest with contrast to evaluate for possible esophageal lesion. Any quantitative measurements of stenosis were performed using NASCET criteria. Dictated by: Fabricio Zhang M.D. on 10/28/2022 at 14:05 Approved by: Fabricio Zhang M.D. on 10/28/2022 at 14:11
[2022-10-28 13:12] LABS: Add Manual Diff / Slide Review NO; Basophils Absolute Auto 100 /uL (0-100); Basophils Percent Auto 0.6 % (0-2); Eosinophils Absolute Auto 100 /uL (0-450); Eosinophils Percent Auto 1.1 % (2-4); Hematocrit 39.1 % (41-53); Hemoglobin 12.9 g/dL (13.5-17.5); Lymphocytes Absolute Auto 1100 /uL (1100-4500); Lymphocytes Percent Auto 12.1 % (25-40); Mean Corpuscular Hemoglobin 30.6 PG (26-34); Mean Corpuscular Volume 92.7 fL (80-100); Monocytes Absolute Auto 700 /uL (0-900); Monocytes Percent Auto 7.8 % (3-14); Neutrophils Absolute Auto 7400 /uL (1500-7000); Neutrophils Percent Auto 78.4 % (50-75); Platelet Count 153 X10^3/uL (150-400); Red Blood Cell Count 4.22 X10^6/uL (4.5-5.9); Red Cell Distribution Width 13.9 % (11.6-14.8); White Blood Cell Count 9.5 X10^3/uL (4.5-11.0)
[2022-10-28 13:20] LABS: INR 1.1 (0.9-1.3); Prothrombin Time 12.1 SECONDS (10.1-12.7)
[2022-10-28 13:22] LABS: PTT Partial Thromboplastin Tim 27 SECONDS (26-36)
[2022-10-28 13:26] LABS: Alanine Aminotransferase 18 IU/L (<50); Albumin 3.9 g/dL (3.5-5.0); Albumin Globulin Ratio 1.4 (1.0-2.8); Alkaline Phosphatase 73 U/L (38-126); Aspartate Aminotransferase 24 IU/L (17-59); BUN Creatinine Ratio 32.7 (6-22); Bilirubin Total 0.9 mg/dL (0.2-1.3); Blood Urea Nitrogen 32 mg/dL (9-20); Calcium 9.6 mg/dL (8.4-10.2); Carbon Dioxide 33 mmol/L (22-32); Chloride 101 mmol/L (98-107); Creatine Kinase 54 U/L (55-170); Estimated Glomerular Filt Rate > 60 mL/min (>60); Ethanol (ETOH) < 10 mg/dL; Globulin 2.8 g/dL (1.7-4.1); Glucose 108 mg/dL (80-110); HEMOLYSIS < 15 (0-50); Lactate (Lactic Acid) 1.7 mmol/L (0.7-2.1); Potassium 3.7 mmol/L (3.4-5.1); Sodium 141 mmol/L (137-145); Total Protein 6.7 g/dL (6.3-8.2)
[2022-10-28 13:41] LABS: Procalcitonin 0.05 ng/mL (<0.5)
[2022-10-28 14:54] LABS: Appearance Urine UA CLEAR; Bilirubin Urine UA NEGATIVE (NEGATIVE); Color Urine UA YELLOW; Glucose Urine UA NEGATIVE (Negative); Ketones Urine UA NEGATIVE (NEGATIVE); Leukocyte Esterase Urine UA NEGATIVE (NEGATIVE); Nitrite Urine UA NEGATIVE (Negative); Occult Blood Urine UA 2+ (Negative); Protein Urine UA NEGATIVE (Negative); Urobilinogen Urine UA 0.2 E.U./dL (0.2)
--- NOTE | 2022-10-28 14:58 | DI.MRI.S_ITS ---
PROCEDURE: MR HEAD/BRAIN WO CON INDICATIONS: possible tia, confussion TECHNIQUE: Non-contrast axial T1 spin echo, axial T2 fast spin echo, sagittal and axial FLAIR, coronal T2 fast spin echo, axial gradient echo, axial diffusion and ADC through the brain. COMPARISON: [facility], CT, CT ANGIO HEAD AND NECK, 10/28/2022, 13:26. FINDINGS: Image quality: Excellent. CSF spaces: Ventricles appear symmetric in size and shape. Basal cisterns are patent. No extra-axial fluid collections. Brain: No acute intracranial bleeds or mass effects. There are several low gradient echo signal intensity foci within the bilateral cerebral hemispheres, cerebral peduncles, and cerebellar hemispheres. There is cerebral volume loss for age. There are periventricular and deep white matter chronic small vessel ischemic changes. Brainstem appears normal. Diffusion-weighted images show no acute ischemic insults. No chronic ischemic insults. Normal intravascular flow voids are present. Skull and face: Calvarial bone marrow is normal in signal. Orbits are normal. Sinuses: Sinuses and mastoids are clear. IMPRESSION: 1. Volume loss and small vessel ischemic disease. 2. No acute process. No recent infarct. 3. Scattered low gradient echo signal intensity foci as described above, consistent with sequelae of amyloid angiopathy in the appropriate clinical setting. Remote trauma or hypertensive hemorrhage could produce similar appearances. No evidence of acute hemorrhage. Dictated by: Asa Richardson M.D. on 10/28/2022 at 15:27 Approved by: Asa Richardson M.D. on 10/28/2022 at 15:29
[2022-10-28 15:03] LABS: UR Morphine/Opiate cutoff 300 Negative (Negative); Ur Creatinine Normal (Normal); Ur Specific Gravity Normal (Normal); Urine Amphetamines Negative (Negative); Urine Barbiturates Negative (Negative); Urine Benzodiazepines Negative (Negative); Urine Cocaine Negative (Negative); Urine MDMA Negative (Negative); Urine Methadone Negative (Negative); Urine Methamphetamines Negative (Negative); Urine Oxycodone Negative (Negative); Urine Phencyclidine Negative (Negative); Urine Tetrahydrocannabinol Negative (Negative); Urine Tricyclic Antidepressant Negative (Negative); Urine pH Normal (Normal)
--- NOTE | 2022-10-28 15:04 | ED_ITS ---
HPI - Neuro Symptoms/Deficit General Chief Complaint: Neuro Symptoms/Deficit Stated Complaint: Confusion Time Seen by Provider: 10/28/22 13:02 Source: patient Mode of arrival: Family Vehicle History of Present Illness HPI Narrative: Patient is an 87-year-old male with history of hypertension hyperlipidemia AAA, presenting today with confusion. He and his had breakfast this morning around 8 or 830 that was the last conversation they had and his last known well. He then went up into the attic to do some things they then had a conversation at noon and he could tell that he was having trouble getting the words out and just was not making any sense. His noticed the same. No numbness tingling or weakness. No facial droop no slurring of words. EMS reports a negative fast. He was in his normal state of health yesterday and today. No fever no chest pain no shortness of breath nausea or vomiting. He says he can just tell that something is off and not right. On Anticoagulants: No Related Data Home Medications Medication Instructions Recorded Confirmed ASPIRIN (#ASPIR 81) 81 mg PO Q DAY ##0 03/28/12 09/07/22 psyllium husk 0.4 gram capsule 2 g PO DAILY 10/10/20 09/07/22 (Metamucil) glucosamine HCl 1,500 mg tablet 1,500 mg PO DAILY 11/20/21 09/07/22 omega-3 fatty acids-fish oil 360 1 cap PO DAILY 11/20/21 09/07/22 mg-1,200 mg capsule (Fish Oil) [facility] 2 cap PO DAILY 06/08/22 09/07/22 carvedilol 12.5 mg tablet 12.5 mg PO BID 06/08/22 09/07/22 naproxen sodium 220 mg capsule 220 mg PO DAILY 06/08/22 09/07/22 (Aleve) Previous Rx's Medication Instructions Recorded atorvastatin 40 mg tablet 40 mg PO QDAY #90 tabs 06/13/20 oxybutynin chloride 5 mg tablet 5 mg PO TID #90 tabs 02/10/22 lisinopril 20 mg tablet 20 mg PO DAILY #90 tabs 09/24/22 alfuzosin 10 mg tablet,extended 10 mg PO DAILY #30 tabs 10/26/22 release 24 hr hydrochlorothiazide 25 mg tablet 25 mg PO QDAY #90 tabs 10/26/22 Allergies Allergy/AdvReac Type Severity Reaction Status Date / Time simvastatin [SIMVASTATIN] AdvReac Mild MUSCLE Verified 10/28/22 13:33 ACHES Review of Systems Review of Systems Narrative: GENERAL: Denies chills, fatigue, malaise, fever, sweats, travel HEENT: Denies sinus pain, ear pain, sore throat, difficulty swallowing, neck pain RESPIRATORY: Denies dyspnea, cough, wheezing, hemoptysis, sputum. CARDIOVASCULAR: Denies chest pain, palpitations, orthopnea, edema GASTROINTESTINAL: Denies nausea, vomiting, abdominal pain, diarrhea, constipation, melena. : Denies dysuria, frequency, incontinence, hematuria, urinary retention, flank pain. MUSCULOSKELETAL: Denies weakness, joint pain, or bony pain SKIN: No rash, no erythema, no pruritus NEUROLOGIC: See HPI PSYCHIATRIC: No concerning psychosocial issues. 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 cliff heart without angina pectoris (02/15/17) Elevated PSA History of endovascular stent graft for abdominal aortic aneurysm (AAA) (09/21/17) Hyperlipidemia, mixed (09/22/11) Left knee DJD Lumbar stenosis with neurogenic claudication Spondylolisthesis at L4-L5 level Status post repair of abdominal aortic aneurysm (AAA) using straight graft (09/21/17) Urinary Incontinence Surgical History H/O endovascular stent graft for abdominal aortic aneurysm (~06/2019) History of appendectomy History of coronary artery bypass graft x 3 (~12/2009) History of knee replacement procedure of right knee Hx laparoscopic cholecystectomy Family History Sister Cancer Social History marital status: number of children: 3 household members: spouse Smoking Status: Never smoker Type(s) of exercise: other frequency: 3-4 times per week Smoking Status: Never smoker alcohol intake frequency: 0-2 drinks per day Substance Use Type: does not use Exam Initial Vital Signs Initial Vital Signs: Vital Signs Pulse Rate 51 L 10/28/22 13:06 Respiratory Rate 14 10/28/22 13:06 Pulse Oximetry 99 10/28/22 13:06 GENERAL: Alert pleasant 87-year-old male and in no acute distress. HEENT: Head atraumatic,EOMI, pupils reactive, face symmetric, moist mucous membranes CARDIOVASCULAR: Regular rate and rhythm without murmurs, rubs or gallops. RESPIRATORY: Breath sounds equal bilaterally, no wheezes rales or rhonchi. ABDOMEN: Soft, nontender. Normoactive bowel sounds all 4 quadrants. No guarding or rebound. EXTREMITIES: Normal range of motion, no clubbing or edema. Neurovascularly int act NEUROLOGICAL: Alert and oriented x4.Normal gait and speech. Cranial nerves II through XII grossly intact. Good auhjrg-xr-hbge, good dnjs-ap-mxja, strength equal bilaterally, no dysarthria or aphasia, sensation in tact to soft touch bilaterally, no visual changes, no facial droop SKIN: Warm, dry, no laceration, no petechiae, no rashes or lesions. Scores NIH Stroke Scale Level of Conciousness: Alert, keenly responsive Ask month/age: Answers both questions correctly. Open/close eyes, close hand: Performs both tasks correctly Best gaze horizontal: Normal Visual ceja: No visual loss Facial palsy: Normal symetrical movement Left arm drift: No drift for full 10 sec Right arm drift: No drift for full 10 sec Left leg drift: No drift for full 5 sec Right leg drift: No drift for full 5 sec Limb ataxia: Absent Sensory on face/arms/legs: Normal, no sensory loss Best language: No aphasia, normal Dysarthria: Normal Extinction or inattention: No abnormality Total NIH Stroke scale score: 0 Course Orders Ordered: ED Orders 10/28/22 13:02 CT head/brain wo con Stat 10/28/22 13:03 CT angio head and neck Stat 10/28/22 13:07 Complete Blood Count AUTO DIFF Stat Comprehensive Metabolic Panel Stat Ethanol (ETOH) Stat Lactate (Lactic Acid) Stat Partial Thromboplastin Time Stat Procalcitonin Stat Prothrombin Time INR Stat Troponin & CK Cardiac Panel Stat 10/28/22 13:19 EKG-12 Lead Stat 10/28/22 14:04 COVID19 -Nasal RAPID/Pre-Proc Stat Urinalysis and Microscopic Stat Urine Drug Screen, Rapid Stat 10/28/22 14:58 MR head/brain wo con Stat 10/28/22 15:45 Trop I [Troponin I] Stat Discontinued Medications Aspirin (Aspirin 81 Mg Chew Tab) 324 mg PO NOW ONE Stop: 10/28/22 16:47 Last Admin: 10/28/22 17:00 Dose: 324 mg Documented By: KAYLEE Vital Signs Vital signs: Vital Signs - 8 hr 10/28/22 13:26 10/28/22 13:06 10/28/22 13:38 Pulse Rate 55 L 51 L 53 L Respiratory Rate 18 14 15 Blood Pressure 152/74 H Pulse Oximetry 98 99 99 Oxygen Delivery Method Room Air 10/28/22 14:00 10/28/22 14:30 10/28/22 15:44 Pulse Rate 54 L 53 L Respiratory Rate 22 21 Blood Pressure 160/77 H Pulse Oximetry 98 98 Oxygen Delivery Method 10/28/22 15:44 10/28/22 16:00 10/28/22 16:00 Pulse Rate 51 L 48 L Respiratory Rate 14 Blood Pressure 147/69 H Pulse Oximetry 99 98 Oxygen Delivery Method Room Air 10/28/22 16:30 10/28/22 16:30 10/28/22 17:00 Pulse Rate 51 L 49 L Respiratory Rate 19 21 Blood Pressure 153/74 H Pulse Oximetry 97 97 Oxygen Delivery Method 10/28/22 17:01 10/28/22 17:01 Pulse Rate 48 L Respiratory Rate 25 H Blood Pressure 163/75 H Pulse Oximetry 97 Oxygen Delivery Method MDM - Neuro Symptoms/Deficit Lab Data Result diagrams: 10/28/22 13:07 10/28/22 13:07 Labs: Lab Results 10/28/22 10/28/22 10/28/22 Range/Units 13:07 13:07 13:07 WBC 9.5 (4.5-11.0) X10^3/uL RBC 4.22 L (4.5-5.9) X10^6/uL Hgb 12.9 L (13.5-17.5) g/dL Hct 39.1 L (41-53) % MCV 92.7 (80-100) fL MCH 30.6 (26-34) PG MCHC 33.0 (30-36) % RDW 13.9 (11.6-14.8) % Plt Count 153 (150-400) X10^3/uL Neut % (Auto) 78.4 H (50-75) % Lymph % (Auto) 12.1 L (25-40) % [place] % (Auto) 7.8 (3-14) % Eos % (Auto) 1.1 L (2-4) % Baso % (Auto) 0.6 (0-2) % Neut # (Auto) 7400 H (3146-2138) /uL Lymph # (Auto) 1100 (6798-1369) /uL [place] # (Auto) 700 (0-900) /uL Eos # (Auto) 100 (0-450) /uL Baso # (Auto) 100 (0-100) /uL PT 12.1 (10.1-12.7) SECONDS INR 1.1 (0.9-1.3) APTT 27 (26-36) SECONDS Sodium (137-145) mmol/L Potassium (3.4-5.1) mmol/L Chloride (98-107) mmol/L Carbon Dioxide (22-32) mmol/L BUN (9-20) mg/dL Creatinine (0.66-1.25) mg/dL Estimated GFR (>60) mL/min BUN/Creatinine Ratio (6-22) Glucose (80-110) mg/dL Lactate 1.7 (0.7-2.1) mmol/L Calcium (8.4-10.2) mg/dL Total Bilirubin (0.2-1.3) mg/dL AST (17-59) IU/L ALT (<50) IU/L Alkaline Phosphatase (38-126) U/L Total Creatine Kinase (55-170) U/L CK-MB (CK-2) CK-MB (CK-2) Rel Index Troponin I (0.01-0.034) ng/mL Total Protein (6.3-8.2) g/dL Albumin (3.5-5.0) g/dL Globulin (1.7-4.1) g/dL Albumin/Globulin Ratio (1.0-2.8) Procalcitonin (<0.5) ng/mL Urine Color Urine Appearance Urine pH (4.5-8.0) Ur Specific [place] (1.000-1.035) Urine Protein (Negative) Urine Glucose (UA) (Negative) g/dL Urine Ketones (NEGATIVE) Urine Occult Blood (Negative) Urine Nitrate (Negative) Urine Bilirubin (NEGATIVE) Urine Urobilinogen (0.2) E.U./dL Ur Leukocyte Esterase (NEGATIVE) Urine RBC (0-5/HPF) Urine WBC (0-5/HPF) Ur Squamous Epith Cells (0-5/HPF) Urine Bacteria (None) Ur Culture Indicated? U Opiates 300ng/mL cut (Negative) Ur Oxycodone Screen (Negative) Urine Methadone Screen (Negative) Ur Barbiturates Screen (Negative) U Tricyclic Antidepress (Negative) Ur Phencyclidine Scrn (Negative) Ur Amphetamines Screen (Negative) U Methamphetamines Scrn (Negative) Ur MDMA Scrn (Ecstasy) (Negative) U Benzodiazepines Scrn (Negative) Urine Cocaine Screen (Negative) U Marijuana (THC) Screen (Negative) Ethyl Alcohol ( - 10) mg/dL SARS-CoV-2 (PCR) (Negative) 10/28/22 10/28/22 10/28/22 Range/Units 13:07 14:04 14:04 WBC (4.5-11.0) X10^3/uL RBC (4.5-5.9) X10^6/uL Hgb (13.5-17.5) g/dL Hct (41-53) % MCV (80-100) fL MCH (26-34) PG MCHC (30-36) % RDW (11.6-14.8) % Plt Count (150-400) X10^3/uL Neut % (Auto) (50-75) % Lymph % (Auto) (25-40) % [place] % (Auto) (3-14) % Eos % (Auto) (2-4) % Baso % (Auto) (0-2) % Neut # (Auto) (4981-5959) /uL Lymph # (Auto) (9600-9757) /uL [place] # (Auto) (0-900) /uL Eos # (Auto) (0-450) /uL Baso # (Auto) (0-100) /uL PT (10.1-12.7) SECONDS INR (0.9-1.3) APTT (26-36) SECONDS Sodium 141 (137-145) mmol/L Potassium 3.7 (3.4-5.1) mmol/L Chloride 101 (98-107) mmol/L Carbon Dioxide 33 H (22-32) mmol/L BUN 32 H (9-20) mg/dL Creatinine 0.98 (0.66-1.25) mg/dL Estimated GFR > 60 (>60) mL/min BUN/Creatinine Ratio 32.7 H (6-22) Glucose 108 (80-110) mg/dL Lactate (0.7-2.1) mmol/L Calcium 9.6 (8.4-10.2) mg/dL Total Bilirubin 0.9 (0.2-1.3) mg/dL AST 24 (17-59) IU/L ALT 18 (<50) IU/L Alkaline Phosphatase 73 (38-126) U/L Total Creatine Kinase 54 L (55-170) U/L CK-MB (CK-2) TNP CK-MB (CK-2) Rel Index TNP Troponin I 0.020 (0.01-0.034) ng/mL Total Protein 6.7 (6.3-8.2) g/dL Albumin 3.9 (3.5-5.0) g/dL Globulin 2.8 (1.7-4.1) g/dL Albumin/Globulin Ratio 1.4 (1.0-2.8) Procalcitonin 0.05 (<0.5) ng/mL Urine Color Yellow Urine Appearance Clear Urine pH 5.0 (4.5-8.0) Ur Specific [place] 1.010 (1.000-1.035) Urine Protein Negative (Negative) Urine Glucose (UA) Negative (Negative) g/dL Urine Ketones Negative (NEGATIVE) Urine Occult Blood 2+ H (Negative) Urine Nitrate Negative (Negative) Urine Bilirubin Negative (NEGATIVE) Urine Urobilinogen 0.2 (0.2) E.U./dL Ur Leukocyte Esterase Negative (NEGATIVE) Urine RBC 0-1/hpf (0-5/HPF) Urine WBC 0-1/hpf (0-5/HPF) Ur Squamous Epith Cells 1-5 /hpf (0-5/HPF) Urine Bacteria None seen (None) Ur Culture Indicated? Cult not indicated U Opiates 300ng/mL cut Negative (Negative) Ur Oxycodone Screen Negative (Negative) Urine Methadone Screen Negative (Negative) Ur Barbiturates Screen Negative (Negative) U Tricyclic Antidepress Negative (Negative) Ur Phencyclidine Scrn Negative (Negative) Ur Amphetamines Screen Negative (Negative) U Methamphetamines Scrn Negative (Negative) Ur MDMA Scrn (Ecstasy) Negative (Negative) U Benzodiazepines Scrn Negative (Negative) Urine Cocaine Screen Negative (Negative) U Marijuana (THC) Screen Negative (Negative) Ethyl Alcohol < 10 ( - 10) mg/dL SARS-CoV-2 (PCR) (Negative) 10/28/22 10/28/22 Range/Units 14:04 15:45 WBC (4.5-11.0) X10^3/uL RBC (4.5-5.9) X10^6/uL Hgb (13.5-17.5) g/dL Hct (41-53) % MCV (80-100) fL MCH (26-34) PG MCHC (30-36) % RDW (11.6-14.8) % Plt Count (150-400) X10^3/uL Neut % (Auto) (50-75) % Lymph % (Auto) (25-40) % [place] % (Auto) (3-14) % Eos % (Auto) (2-4) % Baso % (Auto) (0-2) % Neut # (Auto) (9520-1431) /uL Lymph # (Auto) (0418-1419) /uL [place] # (Auto) (0-900) /uL Eos # (Auto) (0-450) /uL Baso # (Auto) (0-100) /uL PT (10.1-12.7) SECONDS INR (0.9-1.3) APTT (26-36) SECONDS Sodium (137-145) mmol/L Potassium (3.4-5.1) mmol/L Chloride (98-107) mmol/L Carbon Dioxide (22-32) mmol/L BUN (9-20) mg/dL Creatinine (0.66-1.25) mg/dL Estimated GFR (>60) mL/min BUN/Creatinine Ratio (6-22) Glucose (80-110) mg/dL Lactate (0.7-2.1) mmol/L Calcium (8.4-10.2) mg/dL Total Bilirubin (0.2-1.3) mg/dL AST (17-59) IU/L ALT (<50) IU/L Alkaline Phosphatase (38-126) U/L Total Creatine Kinase (55-170) U/L CK-MB (CK-2) CK-MB (CK-2) Rel Index Troponin I 0.023 (0.01-0.034) ng/mL Total Protein (6.3-8.2) g/dL Albumin (3.5-5.0) g/dL Globulin (1.7-4.1) g/dL Albumin/Globulin Ratio (1.0-2.8) Procalcitonin (<0.5) ng/mL Urine Color Urine Appearance Urine pH (4.5-8.0) Ur Specific [place] (1.000-1.035) Urine Protein (Negative) Urine Glucose (UA) (Negative) g/dL Urine Ketones (NEGATIVE) Urine Occult Blood (Negative) Urine Nitrate (Negative) Urine Bilirubin (NEGATIVE) Urine Urobilinogen (0.2) E.U./dL Ur Leukocyte Esterase (NEGATIVE) Urine RBC (0-5/HPF) Urine WBC (0-5/HPF) Ur Squamous Epith Cells (0-5/HPF) Urine Bacteria (None) Ur Culture Indicated? U Opiates 300ng/mL cut (Negative) Ur Oxycodone Screen (Negative) Urine Methadone Screen (Negative) Ur Barbiturates Screen (Negative) U Tricyclic Antidepress (Negative) Ur Phencyclidine Scrn (Negative) Ur Amphetamines Screen (Negative) U Methamphetamines Scrn (Negative) Ur MDMA Scrn (Ecstasy) (Negative) U Benzodiazepines Scrn (Negative) Urine Cocaine Screen (Negative) U Marijuana (THC) Screen (Negative) Ethyl Alcohol ( - 10) mg/dL SARS-CoV-2 (PCR) Negative (Negative) Imaging Data CT scan - head: Radiologist's Impression: Signed Patient: Lionel Adkins MR#: [id number] : 1935 Acct:[id number] Age/Sex: 87 / M Date of Service: 10/28/22 Loc: ED Accession Number: [id number] ?? Procedure: CT head/brain wo con Ordering Provider: Brittany Costa D.O. PROCEDURE:? CT HEAD/BRAIN WO CON ? INDICATIONS:? confusion ? TECHNIQUE:? Noncontrast 4.5 mm thick angled axial sections acquired from the foramen magnum to the vertex, with coronal and sagittal reformats.? For radiation dose reduction, the following was used:? automated exposure control, adjustment of mA and/or kV according to patient size.? ? COMPARISON:? None. ? FINDINGS:? Image quality:? Excellent.? ? CSF spaces:? Basal cisterns are patent.? No extra-axial fluid collections.? The ventricles are symmetric in size and shape.? ? Brain:? No intracranial bleeds or masses.? There is cerebral volume loss for age, with resultant ventricular and sulcal prominence.? There are periventricular and deep white matter chronic small vessel ischemic changes.? There is intracranial internal carotid artery atherosclerosis.? ? Skull and face:? Calvarium and visualized facial bones appear intact, without suspicious lesions.? ? Sinuses:? Visualized sinuses and mastoids are clear.? ? IMPRESSION:? No evidence acute intracranial process. ? ? Dictated by: Fabricio Zhang M.D. on 10/28/2022 at 14:02 ? ? CTA - brain/neck: Radiologist's Impression: CT Scan Report Signed Patient: Lionel Adkins MR#: [id number] : 1935 Acct:[id number] Age/Sex: 87 / M Date of Service: 10/28/22 Loc: ED Accession Number: [id number] ?? Procedure: CT angio head and neck Ordering Provider: Brittany Costa D.O. PROCEDURE:? CT ANGIO HEAD AND NECK ? INDICATIONS:? confusion ? TECHNIQUE:? After the administration of intravenous contrast, 1 mm thick sections acquired from the aortic arch through the [place] of [place].? Post-contrast 4.5 mm thick sections then re-acquired from the foramen magnum to the vertex.? 3-dimensional rlfvzze-dnnwxaqoz-fgpdgiokrf (MIP) and/or volume rendering reformats were acquired of the central intracranial vasculature and neck separately. For radiation dose reduction, the following was used:? automated exposure control, adjustment of mA and/or kV according to patient size.? ? COMPARISON:? [facility], CT, CT HEAD/BRAIN WO CON, 10/28/2022, 13:26. ? FINDINGS:? Image quality:? Excellent.? ? BRAIN:? CSF spaces:? Ventricles are normal in size and shape.? Basal cisterns are patent.? No extra-axial fluid collections.? ? Brain:? No midline shift.? No intracranial bleeds or masses.? Alex-white matter interface appears intact.? ? Skull and face:? Calvarium and facial bones appear intact, without suspicious lesions.? Orbits appear normal.? ? Sinuses:? Sinuses and mastoids are clear.? ? HEAD CT ANGIOGRAPHY:? Anterior circulation:? Intracranial internal carotid arteries are normal in size and flow.? The flow within the paired anterior cerebral arteries is normal and symmetric.? The flow within the middle cerebral arteries is normal and symmetric.? The anter ior communicating artery is seen.? No aneurysms are seen.? ? Posterior circulation:? Visualized portions of the vertebral arteries demonstrate normal caliber, and join to form a normal appearing basilar artery.? Flow within the posterior cerebral arteries is normal and symmetric.? No aneurysms are seen.? ? NECK CT ANGIOGRAPHY:? Carotid system:? The great vessels demonstrate a conventional anatomy as they arise from the aortic arch.? The origins of the common carotid arteries appear patent.? The common carotid arteries demonstrate normal caliber and courses.? The bifurcation regions are both widely patent.? Very mild bilateral internal carotid artery stenotic disease, non flow limiting.? Internal carotid arteries have a normal course. ? Posterior circulation:? The origins of the vertebral arteries both appear widely patent.? The more superior extracranial portions of both vertebral arteries also demonstrate normal courses and calibers.? They join to form a normal appearing basilar arter y.? ? Soft tissues:? Visualized neck soft tissues demonstrate no suspicious abnormalities.? Upper thoracic esophagus is dilated and contains debris. ? Bones:? No suspicious bony lesions.? Visualized cervical spine appears normally aligned.? IMPRESSION:? ? 1. No evidence of acute stroke, hemorrhage, or mass. ? 2. Unremarkable CTA head.? No stenosis, aneurysm, occlusion, or focal filling defect. ? 3. Very mild bilateral internal carotid artery stenotic disease. ? 4. Dilated upper thoracic esophagus containing debris. ? Comment:? Consider nonemergent CT chest with contrast to evaluate for possible esophageal lesion. ? Any quantitative measurements of stenosis were performed using NASCET criteria.? ? ? Dictated by: Fabricio Zhang M.D. on 10/28/2022 at 14:05 ? ? ECG Data Interpretation: Sinus rhythm rate 53 MT interval 268 QRS 118 QTC 407 T-wave inversion noted in lead 3 pronounced today than previously [place] [address] changes. MDM Narrative Medical decision making narrative: Patient is 87-year-old male who presents with confusion. Last known well was 830 this morning. Seen again at noon out of the 3 and half to 4 hour window for tPA. He also has a low NIH stroke scale. He feels like he is just not communicating right. Although I do not appreciate any dysphagia or dysarthria. His also reports that he isn't really communicating right either. He is no chest pain or shortness of breath. EKG does show slightly more pronounced T- wave inversion however prior EKG is from 2014. Troponin x2 are negative. CT head and CT angio are both negative. MRI is ordered. Patient has no sign of infection. Patient does have worsening T-wave inversion but no prior EKG until 2014. He is 2- troponins and no chest pain or other symptoms of acute coronary syndrome MRI does not show any acute ischemic but does show amyloid angiopathy. Patient is on aspirin already. He is not had any trauma. He is had an echocardiogram this year already. I talked with Dr. MCCORMACK about outpatient follow-up he will help arrange to see patient tunde. Discussion with patient and family in regards to signs of stroke and to come to the ED as soon as they noticed them. Differential diagnosis includes CVA, TIA, infection Discharge Plan Departure Patient Disposition: Home Clinical Impression: Transient cerebral ischemia Instructions: DI for Transient Ischemic Attack Activity Restrictions/Additional Instructions: *You have been diagnosed with TIA *What to do: At this time please follow-up with your primary care provider to make sure on all the correct medications. *Continue to take medications as directed *Follow up with your primary care provider in 2-3 days or call [phone] *Return to ER if you should have increased confusion, weakness difficulty speaking facial droop visual changes or any new, worsening or concerning symptoms Prescriptions: No Action ASPIRIN (#ASPIR 81) tablet 81 mg PO Q DAY Qty: 0 lisinopril 20 mg tablet 20 mg PO DAILY Qty: 90 3RF hydrochlorothiazide 25 mg tablet 25 mg PO QDAY Qty: 90 1RF alfuzosin 10 mg tablet extended release 24 hr 10 mg PO DAILY Qty: 30 3RF Rx Instructions: administer after the same meal each day atorvastatin 40 mg tablet 40 mg PO QDAY Qty: 90 3RF carvedilol 12.5 mg tablet 12.5 mg PO BID Label Comments: Take 1 tablet (12.5 mg total) by mouth 2 (two) times a day with meals [employer] [facility] 2 cap PO DAILY psyllium husk [Metamucil] 0.4 gram capsule 2 g PO DAILY omega-3 fatty acids-fish oil [Fish Oil] 360-1,200 mg capsule 1 cap PO DAILY glucosamine HCl 1,500 mg tablet 1,500 mg PO DAILY Rx Instructions: administer with a meal naproxen sodium [Aleve] 220 mg capsule 220 mg PO DAILY oxybutynin chloride 5 mg tablet 5 mg PO TID Qty: 90 12RF Referrals: Chriss Mayorga MD [Primary Care Provider] -
[2022-10-28 15:10] LABS: Bacteria Urine None Seen; COVID19 -Nasal RAPID Negative (Negative); Culture Indicated Urine Cult Not Indicated; RBC Urine 0-1/HPF (0-5/HPF); Squamous Epithelial Cell Urine 1-5 /HPF (0-5/HPF); WBC Urine 0-1/HPF (0-5/HPF)
[2022-10-28 16:17] LABS: Troponin I 0.023 ng/mL (0.01-0.034)
[2022-10-28] MEDS: ASPIRIN 81 MG CHEW TAB 324 MG PO (17:00)
== END 2022-10-28 17:41 | disposition home or self-care (01) ==
PROVIDERS: Emergency Provider Emergency Medicine; Family Provider Internal Medicine Cardiovascular Disease; PCP Internal Medicine
DX: G45.9 Transient cerebral ischemic attack, unspecified (principal); Z79.899 Other long term (current) drug therapy; Z20.822 Contact with and (suspected) exposure to COVID-19
CPT/HCPCS: 36415; 70450; 70496; 70498; 70551; 80053; 80305; 80320; 81001; 82550; 83605; 84145; 84484; 85025; 85610; 85730; 87635; 93005; 99284; 99285; C9803; Q9967

== ENCOUNTER → 2022-11-05 11:50 | Outpatient (CLI) | payer MEDICARE, SELFPAY ==
[2022-11-07 12:27] LABS: PSA Free % 15.8 % (.); PSA, Total 11.1 ng/mL (0.0-4.0)
== END ==
PROVIDERS: Family Provider Internal Medicine Cardiovascular Disease; PCP Internal Medicine; Referring Provider Urology; Visit Provider Urology
DX: R97.20 Elevated prostate specific antigen [PSA] (principal)
CPT/HCPCS: 36415; 84153; 84154

== ENCOUNTER → 2022-12-04 07:14 | Outpatient (CLI) | payer MEDICARE, SELFPAY ==
--- NOTE | 2022-12-04 07:16 | DI.MRI.S_ITS ---
PROCEDURE: MR PELVIS WO/W CON INDICATIONS: Elevated and rising PSA TECHNIQUE: Coronal HASTE, axial T1 FSE with fat saturation, 3-plane nonbreath-hold T2 FSE. After the administration of contrast, dynamic axial, delayed axial and coronal VIBE or 2-D FLASH with fat saturation through the pelvis. Optional diffusion weighted imaging and ADC may be performed. COMPARISON: [facility], CT, CT ABDOMEN PELVIS WO/W CON, 11/21/2020, 9:54. FINDINGS: Image quality: Adequate however image quality is degraded by a large source of susceptibility artifact within the lower abdomen/upper pelvis, probably the previously demonstrated aorto bi-iliac stent. Prostate: Gland size is 3.5 x 3.4 x 4.7 cm; ellipsoid gland volume is 29 mL. Lesion #1: Size: 1.8 x 1.2 cm Location: Left posterior medial peripheral zone, mid gland-apex (for example axial ADC series 24, image 15). T2 signal: Heterogeneous signal intensity DWI/ADC signal: Hypointense on ADC images, hyperintense on DWI images. DCE: Positive. MITZI: Possible extracapsular extension posteriorly (series 6, image 16). Seminal vesicle invasion: Negative PI-RADS: T2 signal - 3; ADC - 3; DCE - positive; Overall score: PI-RADS 4. Genitourinary system: Bladder wall thickness is normal. Distal ureters are non distended. Bowel and peritoneum: Trace nonspecific free pelvic fluid. Inferior colon and small bowel loops are normal in caliber. Nodes and vessels: No pelvic or inguinal adenopathy by size criteria. Iliac vessels are normal in caliber. Bones: No definite suspicious lesions identified however inhomogeneous fat saturation limits sensitivity. IMPRESSION: 1. A 1.8 cm lesion at the left peripheral zone, mid gland-apex, is consistent with PI-RADS category 4. There is possible extracapsular extension posteriorly. 2. No suspicious lymph nodes identified within the imaged pelvis. Dictated by: Cheo Bull M.D. on 12/05/2022 at 11:43 Approved by: Cheo Bull M.D. on 12/05/2022 at 12:24
== END ==
PROVIDERS: Family Provider Internal Medicine Cardiovascular Disease; PCP Internal Medicine; Referring Provider Urology; Visit Provider Urology
DX: N42.9 Disorder of prostate, unspecified (principal); R97.20 Elevated prostate specific antigen [PSA]
CPT/HCPCS: 72197; A9579

== ENCOUNTER → 2023-01-04 08:14 | Outpatient (CLI) | payer MEDICARE, SELFPAY ==
[2023-01-04 09:45] LABS: Alanine Aminotransferase 18 IU/L (<50); Albumin 3.9 g/dL (3.5-5.0); Albumin Globulin Ratio 1.6 (1.0-2.8); Alkaline Phosphatase 77 U/L (38-126); Aspartate Aminotransferase 28 IU/L (17-59); BUN Creatinine Ratio 26.4 (6-22); Bilirubin Total 1.5 mg/dL (0.2-1.3); Blood Urea Nitrogen 24 mg/dL (9-20); Calcium 9.4 mg/dL (8.4-10.2); Carbon Dioxide 31 mmol/L (22-32); Chloride 100 mmol/L (98-107); Cholesterol 117 mg/dL (140-199); Estimated Glomerular Filt Rate > 60 mL/min (>60); Globulin 2.4 g/dL (1.7-4.1); Glucose 96 mg/dL (80-110); HDL Cholesterol 52 mg/dL (40-60); HEMOLYSIS < 15 (0-50); LDL Cholesterol Calculated 53 mg/dL (<100); Potassium 3.6 mmol/L (3.4-5.1); Sodium 139 mmol/L (137-145); Total Protein 6.3 g/dL (6.3-8.2); Triglycerides 59 mg/dL (35-150)
[2023-01-06 09:47] LABS: PSA, Total 16.6 ng/mL (0.0-4.0)
== END ==
PROVIDERS: Family Provider Internal Medicine Cardiovascular Disease; PCP Internal Medicine; Referring Provider Urology; Visit Provider Urology
DX: E78.2 Mixed hyperlipidemia (principal); I25.10 Atherosclerotic heart disease of native coronary artery without angina pectoris; R97.20 Elevated prostate specific antigen [PSA]
CPT/HCPCS: 36415; 80053; 80061; 84153; 84154

== ENCOUNTER → 2023-01-08 14:43 | Outpatient (CLI) | payer MEDICARE, SELFPAY ==
--- NOTE | 2023-01-08 15:13 | DI.ECHO.S_ITS ---
Interpretation Summary Left ventricular ejection fraction is estimated to be 50 +/- 5%. Grade I diastolic dysfunction The right ventricular systolic function is normal. The right ventricular systolic pressure is estimated to be at least 36 mmHg based on an estimated right atrial pressure of 8 mm Hg. The right ventricle is moderately dilated. The left atrium is moderately dilated. The right atrium is severely dilated. There is mild aortic regurgitation. There is moderate pulmonic regurgitation. 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 Procedure: A two-dimensional transthoracic echocardiogram with color flow and Doppler was performed. The study quality was technically good. There has been no significant change since the previous study. The patient was in atrial fibrillation with heart rates between slow rate bpm during the exam. Left Ventricle: The left ventricle is borderline dilated. There is mild concentric left ventricular hypertrophy. Left ventricular ejection fraction is estimated to be 50 +/- 5%. There are no obvious focal wall motion abnormalities noted but poor endocardial definition reduces the sensitivity for the detection of such. Grade I diastolic dysfunction. Right Ventricle: The right ventricle is moderately dilated. The right ventricular systolic function is normal. Atria: The left atrium is moderately dilated. Both atria have mildly decreased in size since the prior echo exam. The right atrium is severely dilated. The atrial septum is aneurysmal. There is no Doppler evidence for an interatrial shunt. Mitral Valve: The mitral valve is normal in structure and function. There is trace mitral regurgitation. Aortic Valve: The aortic valve is trileaflet. The aortic valve opens well. There is mild aortic valve sclerosis. There is mild aortic regurgitation. Tricuspid Valve: The tricuspid valve is normal in structure and function. There is mild tricuspid regurgitation. The right ventricular systolic pressure is estimated to be at least 35.7 mmHg based on an estimated right atrial pressure of 8 mm Hg. Pulmonic Valve: The pulmonic valve leaflets are thin and pliable; valve motion is normal. There is moderate pulmonic regurgitation. Great Vessels: The aortic root is mildly dilated. The ascending aorta is moderately enlarged. This is a decrease compared to the previous study. Mild pulmonary artery dilation. The IVC is dilated (diameter is greater than 2.1 cm) yet it collapses greater than 50% with a sniff. This suggests a right atrial pressure of 8 mm Hg. Pericardium/ Pleura There is no pericardial effusion. There is no pleural effusion. MMode/2D Measurements & Calculations LVIDd: 5.6 cm LVOT diam: 2.5 cm LVIDs: 3.7 cm Ao root diam: 4.1 cm FS: 34.4 % asc Aorta Diam: 4.5 cm EPSS: 0.29 cm IVSd: 1.2 cm LVPWd: 1.1 cm LV abel. diameter/BSA (cm/m^2): 2.7 LV sys. diameter/BSA (cm/m^2): 1.7 LA A2 area: 24.2 cm2 RA long axis: 6.5 cm LA A4 area: 27.9 cm2 RA area: 29.0 cm2 LA length (vol): 6.5 cm RA vol: 109.9 ml LA vol: 87.9 ml RA : 52.5 ml/m2 LA vol index: 42.0 ml/m2 IVC diam: 2.7 cm RVD1 (basal): 5.2 cm TAPSE: 2.4 cm Doppler Measurements & Calculations Ao V2 max: 138.4 cm/sec LVOT Max Yung: 96.3 cm/sec Ao V2 mean: 102.3 cm/sec LV V1 max P.7 mmHg Ao max P.7 mmHg LV V1 VTI: 23.6 cm Ao mean P.6 mmHg ISAEL(I,D): 3.5 cm2 Ao V2 VTI: 33.8 cm ISAEL(V,D): 3.5 cm2 sev ratio: 0.70 ISAEL indexed to BSA (cm^2/m^2): 1.7 MV E max yung: 62.9 cm/sec TR max yung: 263.2 cm/sec MV A max yung: 71.6 cm/sec TR max P.7 mmHg MV E/A: 0.88 PA V2 max: 85.3 cm/sec Med Peak E' Yung: 6.0 cm/sec PA V2 mean: 59.4 cm/sec E/E' med: 10.5 PA mean P.6 mmHg Lat Peak E' Yung: 12.2 cm/sec E/E' lat: 5.1 E/e' average: 7.8 MV dec time: 0.35 sec MVA(VTI): 4.6 cm2 MV V2 mean: 50.2 cm/sec SV(LVOT): 119.0 ml MV mean P.1 mmHg MV V2 VTI: 25.8 cm Reading Physician:PM
== END ==
PROVIDERS: Family Provider Internal Medicine Cardiovascular Disease; PCP Internal Medicine; Referring Provider Internal Medicine; Visit Provider Internal Medicine
DX: G45.9 Transient cerebral ischemic attack, unspecified (principal); I08.2 Rheumatic disorders of both aortic and tricuspid valves; I77.810 Thoracic aortic ectasia; I77.89 Other specified disorders of arteries and arterioles
CPT/HCPCS: 93306

== ENCOUNTER → 2023-01-09 10:18 | Outpatient (CLI) | payer MEDICARE, SELFPAY ==
[2023-01-09 11:16] LABS: Influenza A - CEPHEID Flu A NEGATIVE (NEGATIVE); Influenza B - CEPHEID Flu B NEGATIVE (NEGATIVE); Respiratory Syncytial Virus Negative (Negative)
[2023-01-09 11:22] LABS: COVID-19 CEPHEID 4-PLEX PCR Negative (Negative)
== END ==
PROVIDERS: Family Provider Internal Medicine Cardiovascular Disease; PCP Internal Medicine; Visit Provider Nurse Practitioner Family
DX: J06.9 Acute upper respiratory infection, unspecified (principal)
CPT/HCPCS: 0241U

== ENCOUNTER 2023-01-25 16:36 | Emergency (ER) | payer MEDICARE, SELFPAY ==
[2023-01-25] VITALS (13 sets, daily range): BP systolic 147–176; BP diastolic 78–93; PULSE 43–51; RESP 11–22; TEMP 36.6; O2SAT 95–100; BMI 27.2
--- NOTE | 2023-01-25 16:44 | DI.CT.S_ITS ---
PROCEDURE: CT STROKE INDICATIONS: code stroke TECHNIQUE: Noncontrast 4.5 mm thick angled axial sections acquired from the foramen magnum to the vertex, with coronal reformats. For radiation dose reduction, the following was used: automated exposure control, adjustment of mA and/or kV according to patient size. COMPARISON: [facility], MR, MR HEAD/BRAIN WO CON, 10/28/2022, 14:55. FINDINGS: Image quality: Excellent. CSF spaces: Basal cisterns are patent. No extra-axial fluid collections. The ventricles are symmetric in size and shape. Brain: No intracranial bleeds or masses. There is cerebral volume loss for age, with resultant ventricular and sulcal prominence. There are periventricular and deep white matter chronic small vessel ischemic changes. There is intracranial internal carotid artery atherosclerosis. Skull and face: Calvarium and visualized facial bones appear intact, without suspicious lesions. Sinuses: Visualized sinuses and mastoids are clear. IMPRESSION: 1. No acute intracranial abnormalities. 2. Cerebral volume loss and chronic microvascular ischemic changes. The result was discussed with Dr. Mendes. This study fulfills neurological imaging criteria for inclusion or exclusion of acute stroke therapies based on available published neurological guidelines. Dictated by: Toñito Clark M.D. on 01/25/2023 at 17:04 Approved by: Toñito Clark M.D. on 01/25/2023 at 17:08
--- NOTE | 2023-01-25 16:46 | DI.CT.S_ITS ---
PROCEDURE: CT ANGIO HEAD AND NECK INDICATIONS: code stroke TECHNIQUE: After the administration of intravenous contrast, 1 mm thick sections acquired from the aortic arch through the [place]. Post-contrast 4.5 mm thick sections then re-acquired from the foramen magnum to the vertex. 3-dimensional towbjur-biqxeqdmc-taevfdspia (MIP) and/or volume rendering reformats were acquired of the central intracranial vasculature and neck separately. For radiation dose reduction, the following was used: automated exposure control, adjustment of mA and/or kV according to patient size. COMPARISON: US, CAROTID ARTERY DOPPLER BILAT, 09/30/2010, 9:08. [facility], CT, CT STROKE, 01/25/2023, 16:48. [facility], CT, CT ANGIO HEAD AND NECK, 10/28/2022, 13:26. FINDINGS: Image quality: Excellent. BRAIN: CSF spaces: Ventricles are normal in size and shape. Basal cisterns are patent. No extra-axial fluid collections. Brain: No midline shift. No intracranial bleeds or masses. Alex-white matter interface appears intact. Skull and face: Calvarium and facial bones appear intact, without suspicious lesions. Orbits appear normal. Sinuses: Sinuses and mastoids are clear. HEAD CT ANGIOGRAPHY: Anterior circulation: Intracranial internal carotid arteries are normal in size and flow. There is prominent calcified plaques in the cavernous segment of the internal carotid arteries bilaterally. The flow within the paired anterior cerebral arteries is normal and symmetric. The flow within the middle cerebral arteries is normal and symmetric. The anterior communicating artery is seen. No aneurysms are seen. Posterior circulation: Visualized portions of the vertebral arteries demonstrate normal caliber, and join to form a normal appearing basilar artery. Flow within the posterior cerebral arteries is normal and symmetric. No aneurysms are seen. NECK CT ANGIOGRAPHY: Carotid system: There are prominent artifact across the carotid bifurcations bilaterally. The great vessels demonstrate a conventional anatomy as they arise from the aortic arch. The origins of the common carotid arteries appear patent. The common carotid arteries demonstrate normal caliber and courses. Suspect moderate stenosis at the carotid bifurcations bilaterally. The internal carotid arteries demonstrate normal calibers and courses. Posterior circulation: The origins of the vertebral arteries both appear widely patent. The more superior extracranial portions of both vertebral arteries also demonstrate normal courses and calibers. They join to form a normal appearing basilar artery. Soft tissues: Visualized neck soft tissues demonstrate no suspicious abnormalities. Bones: No suspicious bony lesions. Visualized cervical spine appears normally aligned. IMPRESSION: 1. No acute intracranial abnormalities. 2. No hemodynamic significant stenosis in anterior or posterior circulations. 3. Prominent artifacts are present through carotid bifurcations bilaterally, making the examination suboptimal. Calcified plaques are seen at the carotid bifurcations bilaterally, as well as in the cavernous segments of the internal carotid arteries bilaterally. Suspect moderate stenosis at the carotid bifurcations bilaterally. No high-grade stenosis or occlusion. Follow-up carotid Doppler ultrasound suggested. 4. No hemodynamic significant stenosis in cervical vertebral arteries bilaterally. Any quantitative measurements of stenosis were performed using NASCET criteria. Dictated by: Toñito Clark M.D. on 01/25/2023 at 18:02 Approved by: Toñito Clark M.D. on 01/25/2023 at 18:13
[2023-01-25 16:55] LABS: Add Manual Diff / Slide Review NO; Basophils Absolute Auto 100 /uL (0-100); Basophils Percent Auto 1.1 % (0-2); Eosinophils Absolute Auto 400 /uL (0-450); Eosinophils Percent Auto 4.7 % (2-4); Hematocrit 35.9 % (41-53); Hemoglobin 12.4 g/dL (13.5-17.5); Lymphocytes Absolute Auto 1900 /uL (1100-4500); Lymphocytes Percent Auto 23.3 % (25-40); Mean Corpuscular HGB Conc 34.6 % (30-36); Mean Corpuscular Hemoglobin 31.5 PG (26-34); Mean Corpuscular Volume 91.1 fL (80-100); Monocytes Absolute Auto 600 /uL (0-900); Monocytes Percent Auto 7.7 % (3-14); Neutrophils Absolute Auto 5000 /uL (1500-7000); Neutrophils Percent Auto 63.2 % (50-75); Platelet Count 144 X10^3/uL (150-400); Red Blood Cell Count 3.94 X10^6/uL (4.5-5.9)
[2023-01-25 17:05] LABS: PTT Partial Thromboplastin Tim 31 SECONDS (26-36)
--- NOTE | 2023-01-25 17:08 | ED.NEUROSD ---
HPI - Neuro Symptoms/Deficit General Chief Complaint: Neuro Symptoms/Deficit Stated Complaint: Says stroke, has had two previous strokes Time Seen by Provider: 01/25/23 16:44 Source: patient and family Mode of arrival: Ambulatory History of Present Illness HPI Narrative: Patient is an 87-year-old male. Not on anticoagulation. Arrives approximately 2 hours and 45 minutes after last known normal. He is here for concerns of a stroke. He states he by himself talking with some other individuals when he noticed that he was having problems speaking. He was slurring his words now having word-finding issues. He also was having some vision changes which was not a loss of vision but more of a blurry vision. He waited for things to improve. He has had strokes in the past with residual deficits just weakness. His came home. She noticed that yes he was having some problems speaking which is why they came into the emergency department. Is not having a headache, no chest pain, no shortness of breath, no abdominal pain, nausea and vomiting, lower extremity weakness, arm weakness. He thinks that baby his vision has improved somewhat. On Anticoagulants: No Related Data Home Medications Medication Instructions Recorded Confirmed glucosamine HCl 1,500 mg tablet 1,500 mg PO DAILY 11/20/21 01/25/23 aspirin 81 mg tablet,delayed 81 mg PO DAILY 12/18/22 01/25/23 release (Adult Aspirin Regimen) carvedilol 6.25 mg tablet 6.25 mg PO BID 01/13/23 01/25/23 lisinopril 20 mg tablet 20 mg PO DAILY 01/13/23 01/25/23 Previous Rx's Medication Instructions Recorded alfuzosin 10 mg tablet,extended 10 mg PO DAILY #30 tabs 10/26/22 release 24 hr hydrochlorothiazide 25 mg tablet 25 mg PO QDAY #90 tabs 10/26/22 atorvastatin 40 mg tablet 40 mg PO QDAY #90 tabs 12/18/22 oxybutynin chloride 5 mg tablet 5 mg PO TID #90 tabs 12/18/22 celecoxib 200 mg capsule (Celebrex) 200 mg PO DAILY #30 caps 01/13/23 gabapentin 300 mg capsule 300 mg PO .COMPLEX #90 caps 01/13/23 Allergies Allergy/AdvReac Type Severity Reaction Status Date / Time simvastatin [SIMVASTATIN] AdvReac Mild MUSCLE Verified 01/25/23 16:53 ACHES Review of Systems Review of Systems ROS Unobtainable: All systems reviewed & are unremarkable except as noted in HPI and below Hematologic/Lymphatic On Anticoagulants: No Patient History Medical History Abdominal aortic aneurysm (AAA) (06/24/15) Asymptomatic microscopic hematuria Benign essential HTN (09/22/11) Bilateral cataracts BPH w urinary obs/LUTS Coronary artery disease involving [place] coronary artery of [place] heart without angina pectoris (02/15/17) Elevated PSA History of endovascular stent graft for abdominal aortic aneurysm (AAA) (09/21/17) Hyperlipidemia, mixed (09/22/11) Left knee DJD Lumbar stenosis with neurogenic claudication Prostate cancer Rising PSA level Spondylolisthesis at L4-L5 level Status post repair of abdominal aortic aneurysm (AAA) using straight graft (09/21/17) TIA (transient ischemic attack) Urinary Incontinence Surgical History H/O endovascular stent graft for abdominal aortic aneurysm (~06/2019) History of appendectomy History of coronary artery bypass graft x 3 (~12/2009) History of knee replacement procedure of right knee Hx laparoscopic cholecystectomy Family History Sister Cancer Social History marital status: number of children: 3 household members: spouse Smoking Status: Never smoker Type(s) of exercise: other frequency: 3-4 times per week Smoking Status: Never smoker alcohol intake frequency: 0-2 drinks per day Substance Use Type: does not use Exam Initial Vital Signs Initial Vital Signs: Vital Signs Pulse Rate 51 L 01/25/23 16:49 Respiratory Rate 17 01/25/23 16:49 Blood Pressure 176/93 H 01/25/23 16:49 Pulse Oximetry 99 01/25/23 16:49 Oxygen Delivery Method Room Air 01/25/23 16:49 Const General: cooperative, comfortable and No ill appearing HENMT Head: normal to inspection and normocephalic Face and sinus: normal facial exam Mouth: oral mucosae normal Eyes Pupils: PERRL Resp Effort & Inspection: normal respiratory effort Auscultation: clear to auscultation bilaterally Cardio Rate: regular rate Rhythm: regular rhythm GI Inspection: normal to inspection Palpation: soft and No tender Skin General: no rashes or lesions noted Neuro General: patient alert, patient awake, patient oriented x3 and moves all extremities Cranial Nerves: CN's II-XI intact bilaterally Cognition: normal cognition Speech: speech normal Sensory Exam: no sensory deficits noted Extrem General: normal to inspection and capillary refill normal Psych Appearance: grossly normal and well kempt Scores GCS [place] coma scale eye opening: Spontaneous [place] coma scale verbal response: Orientated [place] coma scale motor response: Obey commands [place] coma scale total score: 15 NIH Stroke Scale Level of Conciousness: Alert, keenly responsive Ask month/age: Answers both questions correctly. Open/close eyes, close hand: Performs both tasks correctly Best gaze horizontal: Normal Visual ceja: No visual loss Facial palsy: Normal symetrical movement Left arm drift: No drift for full 10 sec Right arm drift: No drift for full 10 sec Left leg drift: No drift for full 5 sec Right leg drift: No drift for full 5 sec Limb ataxia: Absent Sensory on face/arms/legs: Normal, no sensory loss Best language: No aphasia, normal Dysarthria: Normal Extinction or inattention: No abnormality Total NIH Stroke scale score: 0 Course Orders Ordered: ED Orders 01/25/23 16:44 CT Stroke Stat 01/25/23 16:46 CT angio head and neck Stat EKG-12 Lead Stat 01/25/23 16:48 Complete Blood Count AUTO DIFF Stat Comprehensive Metabolic Panel Stat Ethanol (ETOH) Stat Lipase Stat Magnesium Stat PTT Partial Thromboplastin Wai Stat Prothrombin Time INR Stat Troponin & CK Cardiac Panel Stat 01/25/23 17:08 COVID19 -Nasal RAPID Stat Sodium Chloride (Normal Saline 0.9%) 1,000 mls @ 125 mls/hr IV CONT RANDELL Vital Signs Vital signs: Vital Signs - 8 hr 01/25/23 16:49 01/25/23 16:50 01/25/23 17:10 Temperature 97.8 F Pulse Rate 51 L 45 L 45 L Respiratory Rate 17 18 Blood Pressure 176/93 H 176/93 H 160/80 H Pulse Oximetry 99 99 99 Oxygen Delivery Method Room Air Room Air Room Air 01/25/23 17:00 01/25/23 17:15 01/25/23 17:30 Temperature Pulse Rate 47 L 45 L Respiratory Rate 21 Blood Pressure 160/80 H Pulse Oximetry 100 97 Oxygen Delivery Method Room Air Room Air 01/25/23 17:31 01/25/23 17:31 01/25/23 17:45 Temperature Pulse Rate 46 L 44 L Respiratory Rate 13 13 Blood Pressure 149/78 H Pulse Oximetry 97 95 Oxygen Delivery Method Room Air 01/25/23 17:45 01/25/23 18:00 01/25/23 18:00 Temperature Pulse Rate 43 L Respiratory Rate 14 Blood Pressure 147/82 H 153/81 H Pulse Oximetry 97 Oxygen Delivery Method Room Air 01/25/23 18:15 01/25/23 18:15 Temperature Pulse Rate 47 L Respiratory Rate 22 Blood Pressure 155/86 H Pulse Oximetry 99 Oxygen Delivery Method Room Air MDM - Neuro Symptoms/Deficit Medical Records Attestation: I reviewed the patient's medical records. Lab Data Attestation: I reviewed the patient's lab results. 01/25/23 16:48 01/25/23 16:48 Labs: Lab Results 01/25/23 01/25/23 01/25/23 Range/Units 16:48 16:48 16:48 WBC 8.0 (4.5-11.0) X10^3/uL RBC 3.94 L (4.5-5.9) X10^6/uL Hgb 12.4 L (13.5-17.5) g/dL Hct 35.9 L (41-53) % MCV 91.1 (80-100) fL MCH 31.5 (26-34) PG MCHC 34.6 (30-36) % RDW 14.0 (11.6-14.8) % Plt Count 144 L (150-400) X10^3/uL Neut % (Auto) 63.2 (50-75) % Lymph % (Auto) 23.3 L (25-40) % [place] % (Auto) 7.7 (3-14) % Eos % (Auto) 4.7 H (2-4) % Baso % (Auto) 1.1 (0-2) % Neut # (Auto) 5000 (9765-0459) /uL Lymph # (Auto) 1900 (6866-0852) /uL [place] # (Auto) 600 (0-900) /uL Eos # (Auto) 400 (0-450) /uL Baso # (Auto) 100 (0-100) /uL PT 12.0 (10.1-12.7) SECONDS INR 1.0 (0.9-1.3) APTT 31 (26-36) SECONDS Sodium 138 (137-145) mmol/L Potassium 3.9 (3.4-5.1) mmol/L Chloride 102 (98-107) mmol/L Carbon Dioxide 30 (22-32) mmol/L BUN 32 H (9-20) mg/dL Creatinine 1.14 (0.66-1.25) mg/dL Estimated GFR > 60 (>60) mL/min BUN/Creatinine Ratio 28.1 H (6-22) Glucose 85 (80-110) mg/dL Calcium 9.0 (8.4-10.2) mg/dL Magnesium 1.8 (1.6-2.3) mg/dL Total Bilirubin 0.6 (0.2-1.3) mg/dL AST 38 (17-59) IU/L ALT 21 (<50) IU/L Alkaline Phosphatase 82 (38-126) U/L Total Creatine Kinase (55-170) U/L CK-MB (CK-2) CK-MB (CK-2) Rel Index Troponin I (0.01-0.034) ng/mL Total Protein 6.5 (6.3-8.2) g/dL Albumin 3.9 (3.5-5.0) g/dL Globulin 2.6 (1.7-4.1) g/dL Albumin/Globulin Ratio 1.5 (1.0-2.8) Lipase 49 (23-300) U/L Ethyl Alcohol < 10 ( - 10) mg/dL SARS-CoV-2 (PCR) (Negative) 01/25/23 01/25/23 Range/Units 16:48 17:08 WBC (4.5-11.0) X10^3/uL RBC (4.5-5.9) X10^6/uL Hgb (13.5-17.5) g/dL Hct (41-53) % MCV (80-100) fL MCH (26-34) PG MCHC (30-36) % RDW (11.6-14.8) % Plt Count (150-400) X10^3/uL Neut % (Auto) (50-75) % Lymph % (Auto) (25-40) % [place] % (Auto) (3-14) % Eos % (Auto) (2-4) % Baso % (Auto) (0-2) % Neut # (Auto) (6927-5626) /uL Lymph # (Auto) (8559-7037) /uL [place] # (Auto) (0-900) /uL Eos # (Auto) (0-450) /uL Baso # (Auto) (0-100) /uL PT (10.1-12.7) SECONDS INR (0.9-1.3) APTT (26-36) SECONDS Sodium (137-145) mmol/L Potassium (3.4-5.1) mmol/L Chloride (98-107) mmol/L Carbon Dioxide (22-32) mmol/L BUN (9-20) mg/dL Creatinine (0.66-1.25) mg/dL Estimated GFR (>60) mL/min BUN/Creatinine Ratio (6-22) Glucose (80-110) mg/dL Calcium (8.4-10.2) mg/dL Magnesium (1.6-2.3) mg/dL Total Bilirubin (0.2-1.3) mg/dL AST (17-59) IU/L ALT (<50) IU/L Alkaline Phosphatase (38-126) U/L Total Creatine Kinase 84 (55-170) U/L CK-MB (CK-2) TNP CK-MB (CK-2) Rel Index TNP Troponin I 0.014 (0.01-0.034) ng/mL Total Protein (6.3-8.2) g/dL Albumin (3.5-5.0) g/dL Globulin (1.7-4.1) g/dL Albumin/Globulin Ratio (1.0-2.8) Lipase (23-300) U/L Ethyl Alcohol ( - 10) mg/dL SARS-CoV-2 (PCR) Negative (Negative) Point of Care Testing Glucose POC [address] scan - head: Radiologist's Impression: ROCEDURE:? CT STROKE ? INDICATIONS:? code stroke ? TECHNIQUE:? Noncontrast 4.5 mm thick angled axial sections acquired from the foramen magnum to the vertex, with coronal reformats.? For radiation dose reduction, the following was used:? automated exposure control, adjustment of mA and/or kV according to patient size.? ? COMPARISON:? [facility], MR, MR HEAD/BRAIN WO CON, 10/28/2022, 14:55. ? FINDINGS:? Image quality:? Excellent.? ? CSF spaces:? Basal cisterns are patent.? No extra-axial fluid collections.? The ventricles are symmetric in size and shape.? ? Brain:? No intracranial bleeds or masses.? There is cerebral volume loss for age, with resultant ventricular and sulcal prominence.? There are periventricular and deep white matter chronic small vessel ischemic changes.? There is intracranial internal carotid artery atherosclerosis.? ? Skull and face:? Calvarium and visualized facial bones appear intact, without suspicious lesions.? ? Sinuses:? Visualized sinuses and mastoids are clear.? ? IMPRESSION:? ? 1. No acute intracranial abnormalities. ? 2. Cerebral volume loss and chronic microvascular ischemic changes. ? The result was discussed with Dr. Mendes. ? This study fulfills neurological imaging criteria for inclusion or exclusion of acute stroke therapies based on available published neurological guidelines.? ? CTA - brain/neck: Radiologist's Impression: PROCEDURE:? CT ANGIO HEAD AND NECK ? INDICATIONS:? code stroke ? TECHNIQUE:? After the administration of intravenous contrast, 1 mm thick sections acquired from the aortic arch through the [place].? Post-contrast 4.5 mm thick sections then re-acquired from the foramen magnum to the vertex.? 3-dimensional ozpacup-tcetqijib-etaupfstnu (MIP) and/or volume rendering reformats were acquired of the central intracranial vasculature and neck separately. For radiation dose reduction, the following was used:? automated exposure control, adjustment of mA and/or kV according to patient size.? ? COMPARISON:? US, CAROTID ARTERY DOPPLER BILAT, 09/30/2010, 9:08.? [facility], CT, CT STROKE, 01/25/2023, 16:48.? [facility], CT, CT ANGIO HEAD AND NECK, 10/28/2022, 13:26. ? FINDINGS:? Image quality:? Excellent.? ? BRAIN:? CSF spaces:? Ventricles are normal in size and shape.? Basal cisterns are patent.? No extra-axial fluid collections.? ? Brain:? No midline shift.? No intracranial bleeds or masses.? Alex-white matter interface appears intact.? ? Skull and face:? Calvarium and facial bones appear intact, without suspicious lesions.? Orbits appear normal.? ? Sinuses:? Sinuses and mastoids are clear.? ? HEAD CT ANGIOGRAPHY:? Anterior circulation:? Intracranial internal carotid arteries are normal in size and flow.? There is prominent calcified plaques in the cavernous segment of the internal carotid arteries bilaterally.? The flow within the paired anterior cerebral arteries is normal and symmetric.? The flow within the middle cerebral arteries is normal and symmetric.? The anterior communicating artery is seen.? No aneurysms are seen.? ? Posterior circulation:? Visualized portions of the vertebral arteries demonstrate normal caliber, and join to form a normal appearing basilar artery.? Flow within the posterior cerebral arteries is normal and symmetric.? No aneurysms are seen.? ? NECK CT ANGIOGRAPHY:? Carotid system:? There are prominent artifact across the carotid bifurcations bilaterally.? The great vessels demonstrate a conventional anatomy as they arise from the aortic arch.? The origins of the common carotid arteries appear patent.? The common carotid arteries demonstrate normal caliber and courses.? Suspect moderate stenosis at the carotid bifurcations bilaterally.? The internal carotid arteries demonstrate normal calibers and courses.? ? Posterior circulation:? The origins of the vertebral arteries both appear widely patent.? The more superior extracranial portions of both vertebral arteries also demonstrate normal courses and calibers.? They join to form a normal appearing basilar artery.? ? Soft tissues:? Visualized neck soft tissues demonstrate no suspicious abnormalities.? ? Bones:? No suspicious bony lesions.? Visualized cervical spine appears normally aligned.? IMPRESSION:? ? 1. No acute intracranial abnormalities. ? 2. No hemodynamic significant stenosis in anterior or posterior circulations. ? 3. Prominent artifacts are present through carotid bifurcations bilaterally, making the examination suboptimal.? Calcified plaques are seen at the carotid bifurcations bilaterally, as well as in the cavernous segments of the internal carotid arteries bilaterally.? Suspect moderate stenosis at the carotid bifurcations bilaterally.? No high-grade stenosis or occlusion.? Follow-up carotid Doppler ultrasound suggested.? ? 4.? No hemodynamic significant stenosis in cervical vertebral arteries bilaterally. ? ? Any quantitative measurements of stenosis were performed using NASCET criteria.? ECG Data Attestation: I personally reviewed and interpreted this ECG as follows: Prior ECG tracings: available for review Interpretation: Sinus [place] Ventricular rate 45 First-degree AV block MS interval 222 milliseconds Left axis deviation No ST T wave changes MDM Narrative Medical decision making narrative: Patient arrived within the window of tPA. His NIH score was 0. His only potential positives were he did have some shakiness with heel to [place] bilaterally but he was able to perform this. He also has subjective speaking issues although he was not slurring his words. Did not have word-finding issues. I did discuss the case with Dr. Mckeon on-call for stroke Neurology at [facility] who agreed not to do tPA given his presentation. Patient did have a TIA that was diagnosed in emergency department visit at the end of last year. He is had an MRI in the past. Patient is bradycardic on his EKG but it is similar in appearance to a prior EKG. He did have 1 further episode of double vision here in the ER but they lasted just a couple minutes and then resolved. I did discuss the case with Dr. Mayorga who is the patient's primary doctor in his on-call today. Patient recently had an echocardiogram which was unremarkable. Dr. Mayorga seems to think that the patient has had a Holter monitor in the past but the patient did not think that this was necessarily the case. We did discuss the risks and benefits of admitting him to the hospital. Dr. Mayorga seems to think that admitting to the hospital would not necessarily benefit him. He is had an MRI in the past which showed angiopathy which is why he is not on anticoagulation/platelet agents such as Plavix. He stated that he would need to talk with Neurology before he would start him on dual antiplatelet medication. He does not need imaging of his carotid arteries is that was done today with a CTA. He is already had an echocardiogram. The patient has a follow-up already scheduled later this week with Dr. Mayorga. The plan will be to discharge him home without any changes in his medications for a follow-up to discuss further evaluation. This discussion was had with his and family at bedside. Everyone expressed understanding and agreement with plan. Discharge Plan Departure Patient Disposition: Home Clinical Impression: Alteration in speech Instructions: How to Prevent Falls Activity Restrictions/Additional Instructions: I do recommend that you continue to take all of your medications as directed. You should be received a call from Dr. Mayorga office about a follow-up later this week. I do recommend that you talk with him about the indications for a Holter monitor. Return to the emergency department for any new or worsening symptoms. Prescriptions: No Action hydrochlorothiazide 25 mg tablet 25 mg PO QDAY Qty: 90 1RF alfuzosin 10 mg tablet extended release 24 hr 10 mg PO DAILY Qty: 30 3RF Rx Instructions: administer after the same meal each day aspirin [Adult Aspirin Regimen] 81 mg tablet,delayed release (DR/EC) 81 mg PO DAILY atorvastatin 40 mg tablet 40 mg PO QDAY Qty: 90 3RF oxybutynin chloride 5 mg tablet 5 mg PO TID Qty: 90 12RF carvedilol 6.25 mg tablet 6.25 mg PO BID Rx Instructions: must administer with a meal/food lisinopril 20 mg tablet 20 mg PO DAILY celecoxib [Celebrex] 200 mg capsule 200 mg PO DAILY Qty: 30 2RF gabapentin 300 mg capsule 300 mg PO .COMPLEX Qty: 90 2RF Rx Instructions: 1-2 PO Tid to begin at HS and titrate to pain relief glucosamine HCl 1,500 mg tablet 1,500 mg PO DAILY Rx Instructions: administer with a meal Referrals: Chriss Mayorga MD [Primary Care Provider] - Stand Alone Forms: Patient Portal/API
[2023-01-25 17:16] LABS: Creatine Kinase 84 U/L (55-170)
[2023-01-25 17:19] LABS: Alanine Aminotransferase 21 IU/L (<50); Albumin 3.9 g/dL (3.5-5.0); Albumin Globulin Ratio 1.5 (1.0-2.8); Alkaline Phosphatase 82 U/L (38-126); Aspartate Aminotransferase 38 IU/L (17-59); BUN Creatinine Ratio 28.1 (6-22); Bilirubin Total 0.6 mg/dL (0.2-1.3); Blood Urea Nitrogen 32 mg/dL (9-20); Carbon Dioxide 30 mmol/L (22-32); Chloride 102 mmol/L (98-107); Estimated Glomerular Filt Rate > 60 mL/min (>60); Ethanol (ETOH) < 10 mg/dL; Globulin 2.6 g/dL (1.7-4.1); Glucose 85 mg/dL (80-110); HEMOLYSIS 21 (0-50); Lipase 49 U/L (23-300); Magnesium 1.8 mg/dL (1.6-2.3); Potassium 3.9 mmol/L (3.4-5.1); Sodium 138 mmol/L (137-145); Total Protein 6.5 g/dL (6.3-8.2)
[2023-01-25 17:26] LABS: COVID19 -Nasal RAPID Negative (Negative)
[2023-01-25 17:28] LABS: Troponin I 0.014 ng/mL (0.01-0.034)
--- NOTE | 2023-01-25 18:19 | PC.NURSE ---
Patient reports blurred vision is intermittent and currently is not experiencing it.
== END 2023-01-25 19:15 | disposition home or self-care (01) ==
PROVIDERS: Emergency Provider Emergency Medicine; Family Provider Internal Medicine Cardiovascular Disease; PCP Internal Medicine
DX: R47.81 Slurred speech (principal); R07.9 Chest pain, unspecified; Z20.822 Contact with and (suspected) exposure to COVID-19
CPT/HCPCS: 36415; 70450; 70496; 70498; 80053; 80320; 82550; 82962; 83690; 83735; 84484; 85025; 85610; 85730; 87635; 93005; 93010; 99284; 99285; C9803; Q9967

== ENCOUNTER → 2023-01-27 09:21 | Outpatient (CLI) | payer MEDICARE, SELFPAY ==
--- NOTE | 2023-01-27 09:22 | DI.NM.S_ITS ---
PROCEDURE: NM BONE SCAN WHOLE BODY RADIOPHARMACEUTICAL: 19.8 mCi Tc-99m MDP IV. INDICATIONS: New diagnosis prostate cancer TECHNIQUE: Delayed whole-body scintigrams were obtained approximately 3-4 hours after intravenous injection of radiotracer. Anterior and posterior views were acquired from vertex to feet. Additional left and right oblique views of the pelvis were obtained. COMPARISON: [facility], CT, CT ABDOMEN PELVIS W CON, 01/27/2023, 9:40. [facility], CR, XR KNEE ARTHRITIC SERIES BI, 07/07/2021, 10:18. FINDINGS: Physiologic uptake is noted within the kidneys and bladder. Photopenia is noted within the right knee consistent with arthroplasty. Small areas of uptake are noted within the left knee as well as 1st MCP joints bilaterally suggestive of degenerative change. There is increased uptake within the lumbar spine at approximately the level of L3. This corresponds to marked degenerative change on CT exam. IMPRESSION: Focal uptake at the level of L3 suggestive of degenerative change. However, uptake on bone scan can be indistinguishable to metastatic disease and continued attention to this region is recommended on follow-up imaging. Dictated by: Melba Delcid M.D. on 01/27/2023 at 17:22 Approved by: Melba Delcid M.D. on 01/27/2023 at 17:36
--- NOTE | 2023-01-27 09:22 | DI.CT.S_ITS ---
PROCEDURE: CT ABDOMEN PELVIS W CON INDICATIONS: New diagnosis prostate cancer TECHNIQUE: After the administration of intravenous contrast, axial sections acquired from the lung bases to the pubic symphysis. Coronal and sagittal reformats were performed. For radiation dose reduction, the following was used: automated exposure control, adjustment of mA and/or kV according to patient size. COMPARISON: [facility], CT, CHEST/ABD/PEL WITH CONTRAST, 08/04/2014, 14:26. [facility], CT, CT ABDOMEN PELVIS WO/W CON, 11/21/2020, 9:54. [facility], MR, MR PELVIS WO/W CON, 12/04/2022, 7:25. FINDINGS: Lung bases: No pleural effusion. ABDOMEN: Liver: Similar small cyst upper aspect of segment 4. Gallbladder: Resected. Biliary ducts: Unremarkable. Pancreas: Unremarkable. Spleen: Unremarkable. Adrenal Glands: Unremarkable. Kidneys and Ureters: No hydronephrosis. Bilateral renal cortical cysts without suspicious features identified. Additional renal hypodensities present too small to characterize, statistically likely to represent benign cysts. Stomach and Bowel: No bowel obstruction. Peritoneum: No free air. Trace nonspecific pelvic free fluid present. Abdominal Nodes: No retroperitoneal or mesenteric adenopathy by size criteria. Vessels: Similar appearance of the previously demonstrated abdominal aortic aneurysm status post placement of aorto bi-iliac stent graft. PELVIS: Pelvic Organs: Prostate gland and seminal vesicles better evaluated on prior MRI. Bladder: Unremarkable. Pelvic Nodes: No definite suspicious lymph nodes identified. Prominent inguinal lymph nodes are present, not substantially changed since at least 2013. Bones: Multilevel degenerative change of the visualized spine. IMPRESSION: No definite evidence of metastatic disease identified within the abdomen or pelvis. Dictated by: Cheo Bull M.D. on 01/27/2023 at 10:12 Approved by: Cheo Bull M.D. on 01/27/2023 at 10:43
== END ==
PROVIDERS: Family Provider Internal Medicine Cardiovascular Disease; PCP Internal Medicine; Referring Provider Urology; Visit Provider Urology
DX: C61 Malignant neoplasm of prostate (principal)
CPT/HCPCS: 74177; 78306; A9503; Q9967

== ENCOUNTER → 2023-02-01 09:56 | Outpatient (CLI) | payer MEDICARE, SELFPAY | PROVIDERS: Family Provider Internal Medicine Cardiovascular Disease; PCP Internal Medicine; Referring Provider Internal Medicine; Visit Provider Internal Medicine | DX: R00.1 Bradycardia, unspecified (principal) | CPT/HCPCS: 93242 ==

== ENCOUNTER 2023-02-16 13:08 | Outpatient (CLI) | payer MEDICARE, SELFPAY ==
[2023-02-16] VITALS (7 sets, daily range): BP systolic 123–149; BP diastolic 61–78; PULSE 48–55; RESP 10–20; TEMP 36.1; O2SAT 99–100
--- NOTE | 2023-02-16 13:09 | DI.RAD.S_ITS ---
PROCEDURE: PAIN L INTERLAMINAR/CAUDAL INJ INDICATIONS: SPONDYLOSIS COMPARISON: None. FINDINGS: Fluoroscopic spot filming was performed to verify placement of spinal needles at the right interlaminar level(s), as labeled on the films. Appropriate location(s) of the needle tip(s) was confirmed by injection of iodinated contrast. IMPRESSION: Access needle in the right interlaminar space for translaminar epidural steroid injection. Dictated by: Dot Gonzalez MD, PhD on 02/16/2023 at 16:23 Approved by: Dot Gonzalez MD, PhD on 02/16/2023 at 16:23
[2023-02-16] MEDS: MIDAZOLAM 2 MG/2 ML VIAL IV (14:18)
[2023-02-16] MEDS: IOPAMIDOL 15 ML VIAL 3 ML INJ (14:20)
[2023-02-16] MEDS: DEXAMETHASONE 10 MG/ML VIAL 20 MG INJ (14:20)
[2023-02-16] MEDS: BETAMETHASONE 30 MG/5 ML MDV 6 MG INJ (14:20)
[2023-02-16] MEDS: BUPIVACAINE 0.25% (PF) VIAL 2 ML INJ (14:21)
--- NOTE | 2023-02-16 14:39 | P.PCN_ITS ---
Date/Time/Diagnoses Date of procedure: 02/16/23 Time of procedure: 14:39 Pre-procedure diagnosis: 1. HNP WITH RADICULAR FEATURES, 2. MULTILEVEL CENTRAL STENOSIS, Post-procedure diagnosis: same Procedure Notes Procedure: 1. FLUOROSCOPICALLY GUIDED CONTRAST CONTROLLED INTERLAMINAR EPIDURAL STEROID INJECTION - L3/4 Indications: Alex is referred by Dr. Mayorga for treatment of Bilateral Foraminal Stenosis L>R LE symptoms. Physician: Tyshawn Abdullahi Total Fluoroscopy time (seconds): 17 Total sedation minutes: 15 Complications: none Procedure in detail & Post-procedure care: FINDINGS Multilevel Central Spinal Stenosis with Nerve Root Compression DESCRIPTION OF PROCEDURE Fluoroscopically guided, contrast-controlled L3/4 translaminar epidural steroid injection. Following review of allergy and review of potential side effects and complications, including, but not necessarily limited to, infection, allergic reaction, local tissue breakdown, temporary as well as permanent nerve injury, paralysis, stroke and possible , the patient indicated that the patient understood and agreed to proceed. An informed consent document was signed by the patient, witnessed by a nurse, and placed in the patient's chart. Additionally, other treatment options including modalities, medications, and physical therapy were reviewed with the patient. After review of previous anaesthesic history and IV conscious sedation the patient was deemed safe to proceed with today?s procedure with IV conscious sedation as ASA class II designation. Safety time-out was performed to confirm p atient ID, procedure to be performed and site of procedure. IV sedation was accomplished with a combination of 2mg of Versed was administered by the RN after DO order, titrated to patient comfort during the course of the procedure while the patient remained responsive to all verbal commands. In the prone position, following sterile prep and drape of the lumbar region, the L3/4 translaminar space was identified fluoroscopically. The skin was anesthetized via a 25-gauge, 1.5-inch needle with 1% lidocaine solution. At this point, a 22-gauge short bevel spinal needle was atraumatically introduced and advanced under fluoroscopic guidance into the region of the L3/4 translaminar space. Depth was confirmed on lateral view. Radiological data, including multiple fluoroscopic views of the lumbar spine, reveal a spinal needle at the L3/4 translaminar space. Lateral views then show placement of the needle in the epidural space. Subsequent views show contrast material flowing superiorly and inferiorly in the epidural space. No vascular or intrathecal uptake is observed. At this point, using loss of resistance technique with saline and air, the epidural space was entered. This was confirmed following negative aspiration with injection of approximately 1.5 cc of Isovue 200, showing excellent epidural flow without vascular or intrathecal uptake. At this point, 1cc of 1% lidocaine solution combined with 3cc or 20mg of dexamethasone and 6mg of betamethasone was injected without incident. The patient tolerated the procedure well without signs or symptoms of complications prior to transfer to the recovery area continued monitoring without incident. The patient was then transferred to the recovery area where they were observed for an appropriate period of time after the injection. The patient reported a VAS score of 6 prior to the procedure and a post- procedure VAS of 0. POST OP INSTRUCTIONS The patient was provided a Pain Log to continue to record their response to the target-specific procedure prior to follow-up visit with their referring physician. Additionally, specific post-injection care instructions and a contact number to our office were provided if concerns arise regarding possible complications associated with the procedure are suspected.
== END 2023-02-16 14:55 | disposition home or self-care (01) ==
PROVIDERS: Family Provider Internal Medicine Cardiovascular Disease; PCP Internal Medicine; Referring Provider Physical Medicine & Rehabilitation; Visit Provider Physical Medicine & Rehabilitation
DX: M48.062 Spinal stenosis, lumbar region with neurogenic claudication (principal); M51.16 Intervertebral disc disorders with radiculopathy, lumbar region
CPT/HCPCS: 62323; 99152; J0702; J1100; J2250; J3490

== ENCOUNTER → 2023-02-23 07:13 | Outpatient (CLI) | payer MEDICARE, SELFPAY ==
[2023-02-23 09:17] LABS: Add Manual Diff / Slide Review NO; Basophils Absolute Auto 100 /uL (0-100); Basophils Percent Auto 0.7 % (0-2); Eosinophils Absolute Auto 400 /uL (0-450); Eosinophils Percent Auto 5.6 % (2-4); Hematocrit 38.3 % (41-53); Hemoglobin 13.2 g/dL (13.5-17.5); Lymphocytes Absolute Auto 1300 /uL (1100-4500); Lymphocytes Percent Auto 16.1 % (25-40); Mean Corpuscular HGB Conc 34.5 % (30-36); Mean Corpuscular Hemoglobin 31.4 PG (26-34); Monocytes Absolute Auto 500 /uL (0-900); Monocytes Percent Auto 6.7 % (3-14); Neutrophils Absolute Auto 5600 /uL (1500-7000); Neutrophils Percent Auto 70.9 % (50-75); Platelet Count 127 X10^3/uL (150-400); Red Blood Cell Count 4.21 X10^6/uL (4.5-5.9); Red Cell Distribution Width 13.7 % (11.6-14.8); White Blood Cell Count 7.8 X10^3/uL (4.5-11.0)
[2023-02-23 10:03] LABS: Alanine Aminotransferase 28 IU/L (<50); Albumin 3.7 g/dL (3.5-5.0); Albumin Globulin Ratio 1.5 (1.0-2.8); Alkaline Phosphatase 66 U/L (38-126); Aspartate Aminotransferase 33 IU/L (17-59); BUN Creatinine Ratio 29.2 (6-22); Bilirubin Total 1.2 mg/dL (0.2-1.3); Blood Urea Nitrogen 28 mg/dL (9-20); Calcium 9.8 mg/dL (8.4-10.2); Carbon Dioxide 34 mmol/L (22-32); Chloride 99 mmol/L (98-107); Cholesterol 123 mg/dL (140-199); Estimated Glomerular Filt Rate > 60 mL/min (>60); Globulin 2.5 g/dL (1.7-4.1); Glucose 94 mg/dL (80-110); HDL Cholesterol 52 mg/dL (40-60); HEMOLYSIS < 15 (0-50); LDL Cholesterol Calculated 59 mg/dL (<100); Sodium 139 mmol/L (137-145); Total Protein 6.2 g/dL (6.3-8.2); Triglycerides 58 mg/dL (35-150)
== END ==
PROVIDERS: Family Provider Internal Medicine Cardiovascular Disease; PCP Internal Medicine; Referring Provider Internal Medicine Cardiovascular Disease; Visit Provider Internal Medicine Cardiovascular Disease
DX: I25.10 Atherosclerotic heart disease of native coronary artery without angina pectoris (principal)
CPT/HCPCS: 36415; 80053; 80061; 85025

== ENCOUNTER → 2023-03-31 10:56 | Outpatient (CLI) | payer MEDICARE, SELFPAY ==
[2023-03-31 12:28] LABS: Prostate Specific Antigen 1.15 ng/mL (0.10-4.00)
== END ==
PROVIDERS: Family Provider Internal Medicine Cardiovascular Disease; PCP Internal Medicine; Referring Provider Urology; Visit Provider Urology
DX: C61 Malignant neoplasm of prostate (principal)
CPT/HCPCS: 36415; 84153

== ENCOUNTER → 2023-05-14 09:03 | Outpatient (CLI) | payer MEDICARE, SELFPAY ==
[2023-05-14 10:52] LABS: Prostate Specific Antigen 0.398 ng/mL (0.10-4.00)
== END ==
PROVIDERS: Family Provider Internal Medicine Cardiovascular Disease; PCP Internal Medicine; Referring Provider Urology; Visit Provider Urology
DX: C61 Malignant neoplasm of prostate (principal)
CPT/HCPCS: 36415; 84153

== ENCOUNTER → 2023-06-28 16:10 | Outpatient (CLI) | payer MEDICARE, SELFPAY ==
--- NOTE | 2023-06-28 16:12 | DI.RAD.S_ITS ---
PROCEDURE: XR CHEST 2V INDICATIONS: pleuritic chest TECHNIQUE: 2 views of the chest were acquired. COMPARISON: Merged with [facility], CHEST 2 VIEW, 08/04/2014, 13:10. Merged with [facility], CHEST 1 VIEW, 01/26/2013, 16:21. FINDINGS: Surgical changes and devices: Sternotomy and abdominal aortic repair. Lungs and pleura: Lungs are clear. No pleural effusions or pneumothorax. Mediastinum: Mediastinal contours are normal. Heart size is normal. Ectatic descending aorta. Bones and chest wall: No suspicious bony abnormalities. Soft tissues appear unremarkable. IMPRESSION: No acute cardiopulmonary process. Dictated by: Tremaine Trejo M.D. on 06/28/2023 at 16:44 Approved by: Tremaine Trejo M.D. on 06/28/2023 at 16:45
== END ==
PROVIDERS: Family Provider Internal Medicine Cardiovascular Disease; PCP Internal Medicine; Referring Provider Internal Medicine; Visit Provider Internal Medicine
DX: R07.81 Pleurodynia (principal)
CPT/HCPCS: 71046

== ENCOUNTER → 2023-07-31 10:24 | Outpatient (CLI) | payer MEDICARE, SELFPAY ==
--- NOTE | 2023-07-31 10:29 | DI.RAD.S_ITS ---
PROCEDURE: XR WRIST LT MIN 3V INDICATIONS: Left wrist pain TECHNIQUE: 4 views of the wrist were acquired. COMPARISON: None. FINDINGS: Bones: No fractures or dislocations. No suspicious bony lesions. Degenerative changes are seen throughout, which are most prominent involving the 1st carpometacarpal joint. Milder degenerative changes are seen elsewhere. Scaphoid view: No navicular fractures are seen. Soft tissues: No suspicious soft tissue calcifications. IMPRESSION: Generalized degenerative changes are seen by plain film. If it would be helpful for clinical management decision making, please consider a dedicated, scheduled wrist MRI for further evaluation (assuming that there is no contraindication). If there is strong clinical concern for a ligamentous abnormality, this should be performed according to the MR arthrogram protocol. Dictated by: Rafael Oshea M.D. on 07/31/2023 at 20:01 Approved by: Rafael Oshea M.D. on 07/31/2023 at 20:02
== END ==
PROVIDERS: Family Provider Internal Medicine Cardiovascular Disease; PCP Internal Medicine; Referring Provider Nurse Practitioner Family; Visit Provider Nurse Practitioner Family
DX: M25.532 Pain in left wrist (principal)
CPT/HCPCS: 73110

== ENCOUNTER 2023-08-12 13:13 | Outpatient (CLI) | payer MEDICARE, SELFPAY ==
[2023-08-12] VITALS (8 sets, daily range): BP systolic 133–193; BP diastolic 70–92; PULSE 52–64; RESP 9–18; TEMP 36.4; O2SAT 97–100
--- NOTE | 2023-08-12 13:16 | DI.RAD.S_ITS ---
PROCEDURE: PAIN L/S FACET INJ/BLK 1ST RASHEL INDICATIONS: SPONDYLOSIS COMPARISON: None. FINDINGS: Fluoroscopic spot filming was performed to verify placement of spinal needles at the bilateral L3, L4 and L5 pedicular level(s), as labeled on the films. Appropriate location(s) of the needle tip(s) was confirmed by injection of iodinated contrast. IMPRESSION: Access needles at the bilateral L3, L4 and L5 pedicles for bilateral L3, L4 and L5 medial branch block. Dictated by: Dot Gonzalez MD, PhD on 08/12/2023 at 16:10 Approved by: Dot Gonzalez MD, PhD on 08/12/2023 at 16:11
[2023-08-12] MEDS: MIDAZOLAM 2 MG/2 ML VIAL IV (14:45)
[2023-08-12] MEDS: LIDOCAINE 1% 20 ML 5 ML INJ (14:51)
[2023-08-12] MEDS: BUPIVACAINE 0.5% (PF) 10 ML VIAL 5 ML INJ (14:51)
[2023-08-12] MEDS: iopamidoL 15 ML VIAL 3 ML INJ (14:52)
--- NOTE | 2023-08-12 15:01 | PM.PROC.IR.1 ---
Date/Time/Diagnoses Date of procedure: 08/12/23 Time of procedure: 15:01 Pre-procedure diagnosis: FACET ARTHROPATHY Post-procedure diagnosis: same Procedure Notes Procedure: 1. BILATERAL L3, L4 AND L5 DIAGNOSTIC MB BLOCKS Indications: Alex is referred by Dr. Mayorga for treatment of Bilateral Axial LBP. Physician: Tyshawn Abdullahi Total Fluoroscopy time (seconds): 8 Total sedation minutes: 12 Complications: none Procedure in detail & Post-procedure care: DESCRIPTION OF PROCEDURE Fluoroscopically guided, contrast-controlled bilateral L3, L4 and L5 medial branch blocks with 0.5cc of 0.5% Marcaine. Following review of allergy and review of potential side effects and complications, including, but not necessarily limited to, infection, allergic reaction, local tissue breakdown, nerve injury, paralysis, stroke and possible , the patient indicated that the patient understood and agreed to proceed. An informed consent document was signed by the patient, witnessed by a nurse, and placed in the patient's chart. After review of previous anaesthesic history and IV conscious sedation the patient was deemed safe to proceed with today's procedure with IV conscious sedation as ASA class II designation. Safety time-out was performed to confirm patient ID, procedure to be performed and site of procedure. IV sedation was accomplished with a combination of 2mg of Versed was administered by the RN after DO order, titrated to patient comfort during the course of the procedure while the patient remained responsive to all verbal commands In the prone position, following sterile prep and drape of the lumbar region, the right L3, L4 and L5 anatomical location of the medial branch of the dorsal ramus was identified fluoroscopically. Subsequently an anesthetic skin wheal using 1% lidocaine solution was initiated at each of the anatomical spots. Subsequently then a 22-gauge 3.5-inch spinal needle was atraumatically introduced and advanced under fluoroscopic guidance at each of the corresponding sites at the right L3, L4 and L5 MB. After negative aspiration, 0.2cc of Isovue 200 was injected, confirming placement without vascular or intrathecal uptake. Subsequently then 0.5cc of 0.5% Marcaine solution was injected at each of the corresponding sites at the right L3, L4 and L5 medial branch locations. The identical procedure was replicated on the left. The patient tolerated the procedure well without signs or symptoms of complications. The patient tolerated the procedure well without signs or symptoms of complications prior to transfer to the recovery area continued monitoring without incident. Post-procedure, the patient was monitored initiating provocative activities to measure the amount of relief from block of the facetogenic pain. The patient reported a VAS of 7 prior to the procedure and a post-procedure VAS of 1. It has been a pleasure to assist in the diagnostic and therapeutic care of your patient. POST OP INSTRUCTIONS The patient was provided with a Pain Log to complete over the next several hours and subsequent days prior to the patient's follow up with the ordering physician. If the patient has facility security officer relief to the solution applied, then they may be a candidate for medial branch rhizotomy. The patient is aware, was provided, once again, with a Pain Log and will follow up with the referring physician for review and clinical correlation
== END 2023-08-12 15:30 | disposition home or self-care (01) ==
PROVIDERS: Family Provider Internal Medicine Cardiovascular Disease; PCP Internal Medicine; Referring Provider Physical Medicine & Rehabilitation; Visit Provider Physical Medicine & Rehabilitation
DX: M47.816 Spondylosis without myelopathy or radiculopathy, lumbar region (principal)
CPT/HCPCS: 64493; 64494; 99152; J2250

== ENCOUNTER → 2023-08-17 08:30 | Outpatient (CLI) | payer MEDICARE, SELFPAY ==
[2023-08-17 10:39] LABS: Prostate Specific Antigen < 0.064 ng/mL (0.10-4.00)
== END ==
PROVIDERS: Family Provider Internal Medicine Cardiovascular Disease; PCP Internal Medicine; Referring Provider Urology; Visit Provider Urology
DX: C61 Malignant neoplasm of prostate (principal)
CPT/HCPCS: 36415; 84153

== ENCOUNTER 2023-10-05 13:27 | Outpatient (CLI) | payer MEDICARE, SELFPAY ==
[2023-10-05] VITALS (8 sets, daily range): BP systolic 172–210; BP diastolic 89–99; PULSE 53–62; RESP 12–24; TEMP 36.5; O2SAT 100
--- NOTE | 2023-10-05 14:00 | DI.RAD.S_ITS ---
PROCEDURE: PAIN L/S FACET INJ/BLK 1ST RASHEL INDICATIONS: SPONDYLOSIS COMPARISON: [facility], , PAIN L/S FACET INJ/BLK 1ST RASHEL, 08/12/2023, 14:48. FINDINGS: Fluoroscopic spot filming was performed to verify placement of spinal needles on both sides at the L3, L4, and L5 levels, as labeled on the films. Appropriate location of the needle tips was confirmed by injection of iodinated contrast. Extensive vascular postprocedural change can be seen, including an aorto bi-iliac stent graft. IMPRESSION: Intraprocedural examination demonstrating appropriate positions of the needles. Dictated by: Rafael Oshea M.D. on 10/05/2023 at 17:34 Approved by: Rafael Oshea M.D. on 10/05/2023 at 17:34
[2023-10-05] MEDS: MIDAZOLAM 2 MG/2 ML VIAL IV (14:19)
--- NOTE | 2023-10-05 14:44 | PM.PROC.IR.1 ---
Date/Time/Diagnoses Date of procedure: 10/05/23 Time of procedure: 14:45 Pre-procedure diagnosis: 1. FACET ARTHROPATHY Post-procedure diagnosis: same Procedure Notes Procedure: 1. BILATERAL L3, L4 AND L5 DIAGNOSTIC MB BLOCKS Indications: Lionel is referred by Dr. Mayorga for treatment of Bilateral Axial LBP. Physician: Tyshawn Abdullahi Total Fluoroscopy time (seconds): 12 Total sedation minutes: 13 Complications: none Procedure in detail & Post-procedure care: DESCRIPTION OF PROCEDURE Fluoroscopically guided, contrast-controlled bilateral L3, L4 AND L5 medial branch blocks with 0.5cc of 2% Lidocaine. Following review of allergy and review of potential side effects and complications, including, but not necessarily limited to, infection, allergic reaction, local tissue breakdown, nerve injury, paralysis, stroke and possible , the patient indicated that the patient understood and agreed to proceed. An informed consent document was signed by the patient, witnessed by a nurse, and placed in the patient's chart. After review of previous anaesthesic history and IV conscious sedation the patient was deemed safe to proceed with today's procedure with IV conscious sedation as ASA class II designation. Safety time-out was performed to confirm patient ID, procedure to be performed and site of procedure. IV sedation was accomplished with a combination of 2mg of Versed was administered by the RN after DO order, titrated to patient comfort during the course of the procedure while the patient remained responsive to all verbal commands In the prone position, following sterile prep and drape of the lumbar region, the right L3, L4 AND L5 anatomical location of the medial branch of the dorsal ramus was identified fluoroscopically. Subsequently an anesthetic skin wheal using 1% lidocaine solution was initiated at each of the anatomical spots. Subsequently then a 22-gauge 3.5-inch spinal needle was atraumatically introduced and advanced under fluoroscopic guidance at each of the corresponding sites at the right L3, L4 and L5 MB. After negative aspiration, 0.2cc of Isovue 200 was injected, confirming placement without vascular or intrathecal uptake. Subsequently then 0.5cc of 2% Lidocaine solution was injected at each of the corresponding sites at the right L3, L4 and L5 medial branch locations. The identical procedure was replicated on the left. The patient tolerated the procedure well without signs or symptoms of complications. The patient tolerated the procedure well without signs or symptoms of complications prior to transfer to the recovery area continued monitoring without incident. Post-procedure, the patient was monitored initiating provocative activities to measure the amount of relief from block of the facetogenic pain. The patient reported a VAS of 7 prior to the procedure and a post-procedure VAS of 1. It has been a pleasure to assist in the diagnostic and therapeutic care of your patient. POST OP INSTRUCTIONS The patient was provided with a Pain Log to complete over the next several hours and subsequent days prior to the patient's follow up with the ordering physician. If the patient has central office maintainer relief to the solution applied, then they may be a candidate for medial branch rhizotomy. The patient is aware, was provided, once again, with a Pain Log and will follow up with the referring physician for review and clinical correlation
== END 2023-10-05 14:50 | disposition home or self-care (01) ==
PROVIDERS: Family Provider Internal Medicine Cardiovascular Disease; PCP Internal Medicine; Referring Provider Physical Medicine & Rehabilitation; Visit Provider Physical Medicine & Rehabilitation
DX: M47.816 Spondylosis without myelopathy or radiculopathy, lumbar region (principal)
CPT/HCPCS: 64493; 64494; 99152; J2250

== ENCOUNTER 2023-11-23 07:36 | Outpatient (CLI) | payer MEDICARE, SELFPAY ==
[2023-11-23] VITALS (13 sets, daily range): BP systolic 141–188; BP diastolic 73–93; PULSE 51–62; RESP 10–18; TEMP 35.9; O2SAT 10–100
--- NOTE | 2023-11-23 | DI.RAD.S_ITS ---
PROCEDURE: PAIN L/S MED/LAT N RFA BILAT INDICATIONS: LS back pain COMPARISON: None. FINDINGS: Fluoroscopic spot filming was performed to verify placement of spinal needles at the L3, 4, 5 level(s), as labeled on the films. Appropriate location(s) of the needle tip(s) was confirmed by injection of iodinated contrast. Coils and vascular stents are partially seen. IMPRESSION: Intra procedural images. Please see procedure note for full details. Dictated by: Sterling Khanna M.D. on 11/23/2023 at 12:51 Approved by: Sterling Khanna M.D. on 11/23/2023 at 12:52
[2023-11-23] MEDS: MIDAZOLAM 2 MG/2 ML VIAL 1 MG IV ×2 (08:17→08:44)
[2023-11-23] MEDS: fentaNYL 100 MCG/2 ML INJ 25 MCG IV (08:27)
[2023-11-23] MEDS: LIDOCAINE 1% 20 ML 5 ML INJ (08:30)
[2023-11-23] MEDS: BUPIVACAINE 0.5% (PF) 10 ML VIAL 5 ML INJ (08:32)
--- NOTE | 2023-11-23 09:05 | P.PCN_ITS ---
Date/Time/Diagnoses Date of procedure: 11/23/23 Time of procedure: 09:05 Pre-procedure diagnosis: 1. RECALCITRANT FACET ARTHROPATHY Post-procedure diagnosis: same Procedure Notes Procedure: 1. BILATERAL L3, L4 AND L5 MEDIAL BRANCH RADIOFREQUENCY NEUROTOMY Indications: Lionel is referred by Dr. Mayorga for treatment of facet arthropathy. Physician: Tyshawn Abdullahi Total Fluoroscopy time (seconds): 30 Total sedation minutes: 43 Complications: none Procedure in detail & Post-procedure care: DESCRIPTION OF PROCEDURE Bilateral L3, L4 and L5 medial branch radiofrequency neurotomy The patient is well known to this clinic having undergone previous facet injections with good but temporary relief. The patient has experienced appropriate, concordant relief with previous facet and median branch blocks but the patient's pain has been recalcitrant to further conservative measures. Therefore, based upon the patient's relief and persistent symptoms, the patient is considered an appropriate candidate for facet rhizotomy. All of the patient's questions regarding the risks versus benefits of the procedure, including, but not limited to, bleeding, infection, temporary as well as lasting nerve injury, paralysis, stroke, and , as well treatment alternatives were answered to satisfaction. After obtaining informed consent, denial of pertinent drug allergies, as well as being made aware of the potential risks of bleeding, infection, spinal cord trauma, paralysis, temporary and permanent nerve damage, seizure, stroke, and possible , the patient was brought to the fluoroscopy suite and positioned prone on the fluoroscopy table. After review of previous anaesthesic history and IV conscious sedation the patient was deemed safe to proceed with today's procedure with IV conscious sedation as ASA class II designation. Safety time-out was performed to confirm patient ID, procedure to be performed and site of procedure. IV sedation was accomplished with a combination of 2mg of Versed and 25mcg of Fentanyl administered by the RN after DO order, titrated to patient comfort during the course of the procedure while the patient remained responsive to all verbal commands. The lumbar region was prepped in usual sterile fashion and covered with a fenestrated drape in the usual sterile fashion. Appropriate monitors applied including pulse oximeter, pulse, and blood pressure for regular monitoring throughout the procedure. After local infiltration using 1% lidocaine, under fluoroscopic guidance, a 10- cm RF insulated needle with a 10-mm active tip was positioned parallel to the junction of the right the superior articulating process where the L5 medial branch resides. Needle placement was confirmed with motor stimulation of .5v on the right which produced local stimulation without radicular component. The stimulation was then increased to 2v with, once again, only local multifidus stimulation without radicular component. The needle was then removed and the identical procedure was performed along the length of the right L4 medial branch with motor stimulation at .7v on the right. The identical procedure was once again performed along the length of the right L3 and medial branch with motor stimulation of .5v on the right. The medial branches were then anesthetised with 0.5% marcaine. This was then followed by two discreet lesions performed at 80 degrees Celsius for 90 seconds each. The identical procedures were repeated on the left. The patient tolerated the procedure well without signs or symptoms of complications prior to transfer to the recovery area continued monitoring without incident. The patient was then transferred to the recovery area where they were observed for an appropriate period of time after the injection. The patient reported a VAS score of 9 prior to the procedure and a post-procedure VAS of 0. POST OP INSTRUCTIONS The patient was provided a Pain Log to continue to record the patient's response to the target-specific procedure prior to the patient's follow-up visit with the referring physician. Additionally, specific post-injection care instructions and a contact number to our office were provided if concerns arise regarding possible complications associated with the procedure are suspected.
== END 2023-11-23 09:20 | disposition home or self-care (01) ==
PROVIDERS: Family Provider Internal Medicine Cardiovascular Disease; PCP Internal Medicine; Referring Provider Physical Medicine & Rehabilitation; Visit Provider Physical Medicine & Rehabilitation
DX: M47.816 Spondylosis without myelopathy or radiculopathy, lumbar region (principal); C61 Malignant neoplasm of prostate
CPT/HCPCS: 36415; 64635; 64636; 84153; 99152; 99153; J2250; J3010

== ENCOUNTER → 2023-11-23 13:27 | Outpatient (CLI) | payer MEDICARE, SELFPAY ==
[2023-11-23 15:00] LABS: Prostate Specific Antigen < 0.064 ng/mL (0.10-4.00)
== END ==
LOC: LAB 13:29
PROVIDERS: Family Provider Internal Medicine Cardiovascular Disease; PCP Internal Medicine; Referring Provider Radiology Radiation Oncology; Visit Provider Radiology Radiation Oncology
DX: C61 Malignant neoplasm of prostate (principal)
CPT/HCPCS: 36415; 84153

== ENCOUNTER → 2023-12-02 14:02 | Outpatient (CLI) | payer MEDICARE, SELFPAY | PROVIDERS: Family Provider Internal Medicine Cardiovascular Disease; PCP Internal Medicine; Visit Provider Urology | DX: C61 Malignant neoplasm of prostate (principal); N40.1 Benign prostatic hyperplasia with lower urinary tract symptoms; N13.8 Other obstructive and reflux uropathy; N32.81 Overactive bladder; N39.492 Postural (urinary) incontinence; R82.81 Pyuria; R31.29 Other microscopic hematuria; Z92.3 Personal history of irradiation; Z79.818 Long term (current) use of other agents affecting estrogen receptors and estrogen levels | CPT/HCPCS: 51798; 81002; 87086; 96402; 99214; J9217 ==

== ENCOUNTER → 2024-01-10 08:14 | Outpatient (CLI) | payer MEDICARE, SELFPAY ==
[2024-01-10 08:41] LABS: Add Manual Diff / Slide Review NO; Basophils Absolute Auto 100 /uL (0-100); Basophils Percent Auto 1.2 % (0-2); Eosinophils Absolute Auto 200 /uL (0-450); Eosinophils Percent Auto 4.4 % (2-4); Hematocrit 31.9 % (41-53); Hemoglobin 10.8 g/dL (13.5-17.5); Lymphocytes Absolute Auto 700 /uL (1100-4500); Lymphocytes Percent Auto 13.4 % (25-40); Mean Corpuscular HGB Conc 33.7 % (30-36); Mean Corpuscular Hemoglobin 30.7 PG (26-34); Monocytes Absolute Auto 400 /uL (0-900); Monocytes Percent Auto 7.6 % (3-14); Neutrophils Absolute Auto 3600 /uL (1500-7000); Neutrophils Percent Auto 73.4 % (50-75); Platelet Count 137 X10^3/uL (150-400); Red Cell Distribution Width 14.3 % (11.6-14.8); White Blood Cell Count 4.8 X10^3/uL (4.5-11.0)
[2024-01-10 09:02] LABS: Erythrocyte Sedimentation Rate 14 MM/HR (0-15)
[2024-01-10 09:52] LABS: Alanine Aminotransferase 16 IU/L (<50); Albumin 3.6 g/dL (3.5-5.0); Albumin Globulin Ratio 1.4 (1.0-2.8); Alkaline Phosphatase 78 U/L (38-126); Aspartate Aminotransferase 28 IU/L (17-59); Bilirubin Total 0.9 mg/dL (0.2-1.3); C-Reactive Protein Quant 0.7 mg/dL (<1.0); Calcium 9.5 mg/dL (8.4-10.2); Cholesterol 94 mg/dL (140-199); Estimated Glomerular Filt Rate > 60 mL/min (>60); Globulin 2.5 g/dL (1.7-4.1); HDL Cholesterol 46 mg/dL (40-60); HEMOLYSIS < 15 (0-50); LDL Cholesterol Calculated 35 mg/dL (<100); Total Protein 6.1 g/dL (6.3-8.2); Triglycerides 64 mg/dL (35-150)
[2024-01-10 10:02] LABS: Carbon Dioxide 30 mmol/L (22-32); Chloride 106 mmol/L (98-107); Glucose 103 mg/dL (80-110); Potassium 3.8 mmol/L (3.4-5.1); Sodium 140 mmol/L (137-145)
[2024-01-10 10:07] LABS: Free T4, Direct Thyroxine 1.29 ng/dL (0.78-2.19)
[2024-01-10 10:08] LABS: BUN Creatinine Ratio 23.3 (6-22); Blood Urea Nitrogen 17 mg/dL (9-20)
[2024-01-10 10:21] LABS: Thyroid Stimulating Hormone 1.93 uIU/mL (0.47-4.68)
[2024-01-10 10:21] LABS: Prostate Specific Antigen < 0.064 ng/mL (0.10-4.00)
== END ==
LOC: LAB 08:15
PROVIDERS: Urology; Family Provider Internal Medicine Cardiovascular Disease; PCP Internal Medicine; Referring Provider Internal Medicine; Visit Provider Internal Medicine
DX: I48.0 Paroxysmal atrial fibrillation (principal); E78.2 Mixed hyperlipidemia; C61 Malignant neoplasm of prostate; I71.40 Abdominal aortic aneurysm, without rupture, unspecified; I25.10 Atherosclerotic heart disease of native coronary artery without angina pectoris; Z79.01 Long term (current) use of anticoagulants
CPT/HCPCS: 36415; 80053; 80061; 84153; 84439; 84443; 85025; 85651; 86140

== ENCOUNTER → 2024-01-20 13:44 | Outpatient (CLI) | payer MEDICARE, SELFPAY ==
--- NOTE | 2024-02-03 08:15 | PC.NURSE ---
critical results for zio received 02/03/24. notified.
== END ==
LOC: CAR 13:44
PROVIDERS: Family Provider Internal Medicine Cardiovascular Disease; PCP Internal Medicine; Referring Provider Internal Medicine; Visit Provider Internal Medicine
DX: I48.91 Unspecified atrial fibrillation (principal); I48.92 Unspecified atrial flutter; R00.1 Bradycardia, unspecified
CPT/HCPCS: 93242

== ENCOUNTER → 2024-02-03 12:32 | Outpatient (CLI) | payer MEDICARE, SELFPAY ==
--- NOTE | 2024-02-03 12:33 | DI.ECHO.S_ITS ---
[place]---------[facility] +---------+ : : [address] [place] [address] : : : : [id number] : : : : Phone: [phone]+ Echocardiogram Report + + :Name: MINA AC Study Date: 02/03/2024 Height: 72 in : :[facility] ReadingLocation: Weight: 181 lb : : Gender: Male BSA: 2.0 m2 : :: 1935 Age: 88 yrs BP: 129/71 mmHg: :Reason For Study: LOCALIZED EDEMA : :Ordering Physician: ALLIE, : :CIRILO Jay Performed By: Immanuel Bautista : :Referring: CIRILO KELLEY : + + Interpretation Summary The left ventricle is normal in size and wall thickness. Left ventricular systolic function is low normal. The ejection fraction is estimated to be 50- 55%. There has been no significant change since the previous exam. Diastolic parameters suggest probable normal left ventricular diastolic function and normal filling pressures. The right ventricle is mild to moderately dilated. The right ventricular systolic function is normal. The right ventricular systolic pressure is estimated to be at least 30 mmHg based on an estimated right atrial pressure of 3 mm Hg. Compared to the prior echo exam, there has been a decrease in the severity of pulmonary hypertension. The left atrium is moderately dilated. The right atrium is moderate to severely dilated. There is mild aortic regurgitation. There is moderate pulmonic regurgitation. There is mild tricuspid regurgitation. The aortic root is mildly dilated. The ascending aorta is moderately enlarged which has not changed in size since prior study. Procedure: A two-dimensional transthoracic echocardiogram with color flow and Doppler was performed. The study quality was technically adequate. Comparison is made with the echocardiogram of 01/08/2023. The patient was in heart block during the exam. The heart rate ranged between 40-79 bpm during the study. Left Ventricle: The left ventricle is normal in size and wall thickness. Left ventricular systolic function is low normal. The ejection fraction is estimated to be 50-55%. There has been no significant change since the previous exam. Left ventricular wall motion is normal. Diastolic parameters suggest probable normal left ventricular diastolic function and normal filling pressures. Right Ventricle: The right ventricle is mild to moderately dilated. The right ventricular systolic function is normal. Atria: The left atrium is moderately dilated. The right atrium is moderate to severely dilated. The interatrial septum grossly appears intact with no obvious evidence for an atrial septal defect. Mitral Valve: The mitral valve is normal in structure and function. There is no mitral valve stenosis. There is trace mitral regurgitation. Aortic Valve: The aortic valve is trileaflet. There is no aortic valve stenosis. There is mild aortic regurgitation. Tricuspid Valve: The tricuspid valve is normal in structure and function. There is no tricuspid stenosis. There is mild tricuspid regurgitation. The right ventricular systolic pressure is estimated to be at least 30 mmHg based on an estimated right atrial pressure of 3 mm Hg. Compared to the prior echo exam, there has been a decrease in the severity of pulmonary hypertension. Pulmonic Valve: The pulmonic valve is not well visualized. There is no pulmonic valvular stenosis. There is moderate pulmonic regurgitation. Great Vessels: The aortic root is mildly dilated. The ascending aorta is moderately enlarged. The IVC is of normal diameter and collapses greater than 50% with a sniff. This suggests a low right atrial pressure of 3 mm Hg. Pericardium/ Pleura There is no pericardial effusion. There is no pleural effusion. MMode/2D Measurements & Calculations LVIDd: 5.0 cm LVOT diam: 2.2 cm LVIDs: 3.6 cm Ao root diam: 4.1 cm FS: 27.1 % asc Aorta Diam: 4.4 cm IVSd: 1.2 cm Ao Arch Diam (Prox Trans): 2.8 cm LVPWd: 0.95 cm LV abel. diameter/BSA (cm/m^2): 2.4 LV sys. diameter/BSA (cm/m^2): 1.8 LA A2 area: 25.8 cm2 RA long axis: 6.8 cm LA A4 area: 27.3 cm2 RA area: 28.8 cm2 LA length (vol): 6.8 cm RA vol: 104.5 ml LA vol: 88.5 ml RA : 51.2 ml/m2 LA vol index: 43.3 ml/m2 IVC diam: 1.6 cm RVD1 (basal): 4.4 cm RVD2 (mid): 3.8 cm TAPSE: 2.1 cm Doppler Measurements & Calculations Ao V2 max: 184.3 cm/sec LVOT Max Yung: 104.4 cm/sec Ao V2 mean: 133.5 cm/sec LV V1 max P.4 mmHg Ao max P.6 mmHg LV V1 VTI: 25.6 cm Ao mean P.7 mmHg ISAEL(I,D): 2.2 cm2 Ao V2 VTI: 45.7 cm ISAEL(V,D): 2.2 cm2 sev ratio: 0.56 ISAEL indexed to BSA (cm^2/m^2): 1.1 AI P1/2t: 863.1 msec AI dec slope: 153.7 cm/sec2 MV E max yung: 68.2 cm/sec TR max yung: 260.4 cm/sec MV A max yung: 45.8 cm/sec TR max P.1 mmHg MV E/A: 1.5 PA V2 max: 82.7 cm/sec Med Peak E' Yung: 4.7 cm/sec PA V2 mean: 53.4 cm/sec E/E' med: 14.5 PA mean P.3 mmHg Lat Peak E' Yung: 11.2 cm/sec PA pr(Accel): 48.2 mmHg E/E' lat: 6.1 E/e' average: 10.3 MV dec time: 0.34 sec SV(LVOT): 100.5 ml Reading Physician:04:13 PM
== END ==
PROVIDERS: Family Provider Internal Medicine Cardiovascular Disease; PCP Internal Medicine; Referring Provider Internal Medicine; Visit Provider Internal Medicine
DX: I08.2 Rheumatic disorders of both aortic and tricuspid valves (principal); I77.810 Thoracic aortic ectasia; I77.89 Other specified disorders of arteries and arterioles; R60.0 Localized edema
CPT/HCPCS: 93306

== ENCOUNTER → 2024-03-13 07:40 | Outpatient (CLI) | payer MEDICARE, SELFPAY ==
[2024-03-13 08:15] LABS: Hematocrit 33.2 % (41-53); Hemoglobin 11.4 g/dL (13.5-17.5); Mean Corpuscular HGB Conc 34.3 % (30-36); Mean Corpuscular Hemoglobin 31.1 PG (26-34); Mean Corpuscular Volume 90.5 fL (80-100); Platelet Count 126 X10^3/uL (150-400); Red Blood Cell Count 3.66 X10^6/uL (4.5-5.9); Red Cell Distribution Width 15.5 % (11.6-14.8); White Blood Cell Count 5.4 X10^3/uL (4.5-11.0)
[2024-03-13 08:54] LABS: HEMOLYSIS < 15 (0-50); Potassium 3.3 mmol/L (3.4-5.1)
[2024-03-13 08:57] LABS: Alanine Aminotransferase 14 IU/L (<50); Albumin Globulin Ratio 1.6 (1.0-2.8); Alkaline Phosphatase 77 U/L (38-126); Aspartate Aminotransferase 39 IU/L (17-59); BUN Creatinine Ratio 33.3 (6-22); Blood Urea Nitrogen 24 mg/dL (9-20); Calcium 10.2 mg/dL (8.4-10.2); Carbon Dioxide 33 mmol/L (22-32); Chloride 104 mmol/L (98-107); Cholesterol 106 mg/dL (140-199); Estimated Glomerular Filt Rate > 60 mL/min (>60); Globulin 2.5 g/dL (1.7-4.1); Glucose 109 mg/dL (80-110); HDL Cholesterol 55 mg/dL (40-60); LDL Cholesterol Calculated 39 mg/dL (<100); Sodium 142 mmol/L (137-145); Total Protein 6.5 g/dL (6.3-8.2); Triglycerides 59 mg/dL (35-150)
== END ==
LOC: LAB 07:43
PROVIDERS: Family Provider Internal Medicine Cardiovascular Disease; PCP Internal Medicine; Referring Provider Internal Medicine Cardiovascular Disease; Visit Provider Internal Medicine Cardiovascular Disease
DX: I25.10 Atherosclerotic heart disease of native coronary artery without angina pectoris (principal); Z79.01 Long term (current) use of anticoagulants; I73.9 Peripheral vascular disease, unspecified
CPT/HCPCS: 36415; 80053; 80061; 85027

== ENCOUNTER → 2024-03-31 14:49 | Outpatient (CLI) | payer MEDICARE, SELFPAY ==
[2024-03-31 16:18] LABS: BUN Creatinine Ratio 29.3 (6-22); Blood Urea Nitrogen 22 mg/dL (9-20); Calcium 9.4 mg/dL (8.4-10.2); Carbon Dioxide 34 mmol/L (22-32); Chloride 101 mmol/L (98-107); Estimated Glomerular Filt Rate > 60 mL/min (>60); Glucose 95 mg/dL (80-110); HEMOLYSIS < 15 (0-50); Potassium 3.4 mmol/L (3.4-5.1); Sodium 140 mmol/L (137-145)
== END ==
LOC: LAB 14:50
PROVIDERS: Family Provider Internal Medicine Cardiovascular Disease; PCP Internal Medicine; Referring Provider Internal Medicine; Visit Provider Internal Medicine
DX: I10 Essential (primary) hypertension (principal)
CPT/HCPCS: 36415; 80048

== ENCOUNTER → 2024-05-25 07:46 | Outpatient (CLI) | payer MEDICARE, SELFPAY ==
[2024-05-25 09:58] LABS: Prostate Specific Antigen < 0.064 ng/mL (0.10-4.00)
== END ==
PROVIDERS: Family Provider Internal Medicine; PCP Internal Medicine; Referring Provider Urology; Visit Provider Urology
DX: C61 Malignant neoplasm of prostate (principal)
CPT/HCPCS: 36415; 84153

== ENCOUNTER 2024-06-23 08:15 | Outpatient (RCR) | payer MEDICARE, SELFPAY ==
--- NOTE | 2024-04-20 15:46 | PT.OPPOC ---
Physical, Occupational & Speech Therapy At 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 Tyshawn Abdullahi DO Attending Provider Physician Referring Provider Specialty: Interventional Radiology Physiatry Pain Management Address: [address] [place] [address], [address] Email: [email or web address] Plan Of Care PT-OP-T Assessment and Plan Start: 04/20/24 12:58 Freq: Status: Active Protocol: Document 04/20/24 12:58 NM (Rec: 04/20/24 16:11 NM [id number]) Physical Therapy Assessment Rehab Potential Rehabilitation Potential Fair Evaluation Complexity Number of Personal Factors/Comorbidities 3 or More Number of Body Systems Impaired 3 Clinical Presentation at Evaluation Stable Impairments Impairments Activity Tolerance,Balance, Edema,Functional Activities, Functional Mobility,Gait, Integument,Pain,Posture,ROM, Sensation,Soft Tissue Mobility ,Strength,Transfers Goals Six Impairment stairs Kapok Machine Operator Goal (LTG) Pt will report no increase in baseline pain or poor trunk stability when performing at least 8 stairs with or without hand rail in order to demonstrate improved activity tolerance, pain management, and QOL LTG Duration 12 weeks Five Impairment balance Short Term Goal (STG) Pt will increase Tinetti score >18/28 in order to move from high fall risk to moderate fall risk during gait and stairs STG Duration 6 weeks Long-Term Goal (LTG) Pt will increase Tinetti score >23/28 in order to move from high fall risk to moderate fall risk during gait and stairs LTG Duration 12 weeks Four Impairment strength Short Term Goal (STG) Pt will improve B knee flexion and extension strength to at least 4/5 in order to demonstrate improved stability on stairs and with gait STG Duration 6 weeks Long-Term Goal (LTG) Pt will improve B knee flexion and extension strength to at least 4+/5 in order to demonstrate improved stability on stairs and with gait LTG Duration 12 weeks Three Impairment strength Short Term Goal (STG) Pt will increase B hip extension and abduction strength to at least 4-/5 in order to demonstrate improved hip strength for gait, balance , and to decrease fall risk STG Duration 6 weeks Kapok Machine Operator Goal (LTG) Pt will increase B hip extension and abduction strength to at least 4+/5 in order to demonstrate improved hip strength for gait, balance , and to decrease fall risk LTG Duration 12 weeks Two Impairment STS Short Term Goal (STG) Pt will be able to perform 5x STS without compensation or increase in baseline pain in order to demonstrate improved BLE strength for transfers and gait STG Duration 6 weeks Long-Term Goal (LTG) Pt will be able to perform at least 11 sit to gasoline finisher 30 seconds (age related norm) without increase in baseline pain in order to demonstrate improved BLE strength for transfers and gait LTG Duration 12 weeks One Impairment ambulation Short Term Goal (STG) Pt will report that he is able to ambulate community distance with or without LRAD without increase in baseline pain in order to demonstrate improved symptom management and social participation STG Duration 6 weeks Long-Term Goal (LTG) Pt will report that he is able to ambulate any distance with or without LRAD without increase in baseline pain in order to demonstrate improved symptom management and social participation LTG Duration 12 weeks Assessment Summary Assessment Pt is a 88 y.o. male presenting with chronic bilateral back and knee pain. Past imaging reveals hx of multilevel lumbar spondylolisthesis, which likely influence his back pain . Pt has impairments in ROM, strength, balance, gait, transfers, stairs, activity tolerance, ADLs/IADLs, and pain management. Pt has limited and painful trunk ROM, and he is able to maintain trunk stability against resistance with difficulty. He has poor ability to stabilize core and is a 15/28 on Tinetti balance test, indicating high fall risk. Pt has limited hip ROM bilaterally, and limitations in R knee ROM. His bilateral leg strength is reduced and pain free. Pt has difficulty with maintaining balance and stairs and during transfers. He uses an AD but not present to clinic using his spc. He has a hx of R TKA and possible OA. Pt has several co- morbidities and has had several falls. PT discussed exam findings with pt and plan of care; pt verbalizes agreement. Pt would benefit from skilled PT for global trunk and BLE strengthening in order to improve activity tolerance and ability to participate in ADLs, improve body mechanics and awareness, and to decrease pain symptoms and fall risk. Physical Therapy Plan Frequency and Duration Frequency of Treatment 2x/Week Duration of treatment (weeks) 12 Plan of Care Start Date 04/20/24 Plan of Care End Date 07/14/24 Therapeutic Interventions Therapeutic Interventions Balance Training,Gait Training ,Home Exercise Program,Joint Mobilizations,Manual Therapy, Neuromuscular Re-education, Orthotic/Prosthetic Management ,Patient/Caregiver Education, Self-Care/Home Management, Sensory Integration,Soft Tissue Mobilization,Taping, Therapeutic Activities, Therapeutic Exercises Modalities Cold Pack/Ice Massage,Hot Packs Other Therapeutic Interventions pelvic realignment manual traction Next Visit Focus/Plan Next Note Type Treatment Note Next Visit Plan monitor vitals during exericse, hx of spondylolisthesis Edu to avoid repetitive spinal flexion Hamstring stretch, core bracing with flexion bias, hip abd strengthening (trial sidelying or seated vs standing), sit to stand retraining w/o HS assist and band Plan of Care Dates Plan of Care Start Date 04/20/24 Plan of Care End Date 07/14/24 Electronically Signed by: Nakita Carney, PT 04/21/24 [id number] If you are in agreement with this Plan of Care, please return a signed and dated copy. I have reviewed this Plan of Care and certify that the skilled therapy services above are required to meet the patient?s needs. Physician Signature Date Printed Name and Credentials Clinical Instructor Signature Printed Name and Credentials
--- NOTE | 2024-04-20 15:46 | PT.OIE ---
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 (02/15/17) Current use of shelter anticoagulation Facet arthropathy, lumbar History of endovascular stent graft for abdominal aortic aneurysm (AAA) (09/21/17) History of radiation therapy Hyperlipidemia, mixed (09/22/11) Left knee DJD Lumbar stenosis with neurogenic claudication Mild neurocognitive disorder Overactive bladder Paroxysmal atrial fibrillation (~04/2023) Peripheral edema Prostate cancer Spondylolisthesis at L4-L5 level Status post repair of abdominal aortic aneurysm (AAA) using straight graft (09/21/17) Urinary Incontinence Past Surgical History (Last Reviewed 03/22/24 @ 14:53 by Tyshawn Abdullahi DO) H/O endovascular stent graft for abdominal aortic aneurysm (~06/2019) History of appendectomy History of coronary artery bypass graft x 3 (~12/2009) History of knee replacement procedure of right knee Hx laparoscopic cholecystectomy Visit Care Team Role Provider Type Chriss Mayorga MD Family Provider Physician Primary Care Provider Specialty: Internal Medicine Address: [address] [place] [address], [address], [address] Email: [email or web address] Tyshawn Abdullahi DO Attending Provider Physician Referring Provider Specialty: Interventional Radiology Physiatry Pain Management Address: [address] [place] [address], [address] Email: [email or web address] Physical Therapy Initial Evaluation PT-OP-A Visit Information Start: 04/20/24 12:58 Freq: Status: Active Protocol: Document 04/20/24 12:58 NM (Rec: 04/20/24 13:49 NM [id number]) Out-Patient Physical Therapy Visit Information Visit Information Visit Type Initial Evaluation Visit Start Time 13:00 Visit Stop Time 13:47 Visit Number 1 Evaluation Information Evaluation Date 04/20/24 Precautions Precautions Fall risk, hx of heart attack and triple bypass monitor vitals with activity , fall risk PT-OP-B Current Condition Start: 04/20/24 12:58 Freq: Status: Active Protocol: Document 04/20/24 12:58 NM (Rec: 04/20/24 13:49 NM [id number]) Current Condition History of Current Condition Current Complaints pain, mobility, strength, balance History of Current Condition Pt reports back pain and B knee pain. He also has a fat pad in his back. Pain is bilateral and along the spine. Reports he also has R thigh pain, which limits his mobility. He sleeps on his L side primarily but has L shoulder pain too. His back pain is the primary limit for his mobility, no DANIAL but chronic. Has had several injections for pain recently and gets weekly massage, which helps. He reports due to his knees that he has difficulty with walking (speed and distance), transfers from a chair (leg pain and weakness), floor transfer (uses hands), stairs. He has had the R knee replaced. Uses cane for gait but did not bring today. He has fallen 3x times backward when he was standing, so the cane helps keep him from falling backward. He just renovated his home to one story, but still has stairs in his house. 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 Currently, pt does an exercise routine and cardiac rehab 2- 3x/wk, but no other exercise. Wants to go back on family walks again for any distance but has not since before covid Prior Treatments and Tests previous PT at different clinic Treatment Goals Patient/Caregiver Goals walk better, less back pain Prior Functional Status Baseline Function- Recreation/Hobbies exercise routine - 100 toe touches Baseline Function- Other massage 1x/wk Current Functional Impairments (Reported) Functional Limitations- Mobility/Gait unable to participate in family walks Functional Limitations- Recreation/ pain with exercise, toe Hobbies touches row club 3x/wk (does the talking) PT-OP-C Subjective Start: 04/20/24 12:58 Freq: Status: Active Protocol: Document 04/20/24 12:58 NM (Rec: 04/20/24 13:49 NM [id number]) OP-PT Subjective Patient Comments Patient Comments see hx above for pt report Patient Questionnaires Oswestry Low Back Index Oswestry Score 11/50 OP-PT Pain Assessment Location knees Pain Aggravating Factors Standing,Walking,Stair Climbing lumbar spine Pain Location Details R sided (3/4 from spine to hip ) Scale Used Numeric (0 - 10) Description Aching Description- Other morning worse, better as day improves Radiating Location hip Variations/Patterns to quad (mid quad)- sharp like a needle Pain Aggravating Factors ADL's,Walking,Lifting Pain Alleviating Factors Massage PT-OP-E Functional Tests Start: 04/20/24 12:58 Freq: Status: Active Protocol: Document 04/20/24 12:58 NM (Rec: 04/20/24 13:49 NM [id number]) Functional Tests 30 Second Sit to Stand Test Score 10 Comments feel it in knees, use HS to stabilize, poor eccentric Five Times Sit to Stand Test Score 13 sec Comments use HS to stabilize, poor eccentric Tinetti Balance and Gait Assessment Balance Score 8 Gait Score 7 Composite Score 15/28 Other Forward Trunk Flexion Test Name of Test measured fingers to floor Score 9 Comment reproduces pain, tight hamstrings PT-OP-F Manual Assessment Start: 04/20/24 12:58 Freq: Status: Active Protocol: Document 04/20/24 12:58 NM (Rec: 04/20/24 13:49 NM [id number]) Manual Assessments Soft Tissue Assessment Soft Tissue Mobility Assessment Tight hip flexors bilaterally (+ massimo test), increased tone in paraspinals especially QL. L trunk periscapular and paraspinals are more restricted and elevated than R side Joint Mobility Assessment Joint Mobility Assessment Decreased lumbar spine and hip mobility. Hypomobility with P -A springing of lumbar spine spinous processes (not tender) and PSIS/SIJ (tender) - R>L PT-OP-G Mobility & Gait Start: 04/20/24 12:58 Freq: Status: Active Protocol: Document 04/20/24 12:58 NM (Rec: 04/20/24 16:11 NM [id number]) OP Gait Assessment Gait Gait Assistance Required: Standby Assistance Distance (Feet) 150 Assistive Devices Assistive Device Gait Belt Gait Deviations General Gait Pattern Antalgic,Decreased Feet Clearance,Flexed Trunk Factors Limiting Gait Function Factors Limiting Gait Function Decreased Activity Tolerance, Decreased Sensation,Decreased Strength,Limited Range of Motion,Pain,Poor Balance Comments Gait Comments uses AD normally Stair Climbing Evaluation Evaluation Level of Assist On Stairs Contact Guard Assistance Devices Stair Climbing Assistive Devices Left Railing,Right Railing Technique/Endurance Stair Climbing Direction Ascend and Descend Stair Climbing Technique Step Over Step Number of Steps Climbed 4 Stair Climbing Set # Repetitions (reps) 1 Comments Stair Climbing Comments Poor trunk and knee stability with descent. Reproduces knee pain PT-OP-J Posture/Palpation/Skin Start: 04/20/24 12:58 Freq: Status: Active Protocol: Document 04/20/24 12:58 NM (Rec: 04/20/24 16:11 NM [id number]) Posture Evaluation Position Standing Head/C-Spine Posture Forward Head T-Spine Posture Increased Kyphosis L-Spine Posture Increased Lordosis Shoulder Posture (L) Rounded,(R) Rounded,(L) Forward,(L) Elevated Pelvis Posture Anteriorly Tilted Weight Distribution Balanced Hip Posture (L) Externally Rotated,(R) Externally Rotated Knee Posture (L) Genu Valgus,(R) Genu Valgus Ankle/Foot Posture (L) Pronated,(R) Pronated Palpation Assessment Location B knees Palpation Details Tenderness along medial and lateral knees, patellar tendon Tenderness along R quad Tightness of B quads lumbar spine Palpation Details Tenderness along PSIS/SIJ, R>L , QL/paraspinals No midline tenderness. Tenderness lateral to spinous processes. PT-OP-K Range of Motion Start: 04/20/24 12:58 Freq: Status: Active Protocol: Document 04/20/24 12:58 NM (Rec: 04/20/24 13:49 NM [id number]) Lumbar Spine Range of Motion Lumbar Spine Active Percentage Flexion 75 Extension 50 Rotation Left 100 Rotation Right 100 Lateral Flexion Left 75 Lateral Flexion Right 50 Comments Pain reproduced with flex, B lateral flex Hip Goniometric Range of Motion Hip Right Internal Rotation 10 External Rotation 30 Left Internal Rotation 10 External Rotation 20 Knee Goniometric Range of Motion Knee Right Flexion Active (degrees) 128 Extension Active (degrees) 0 Left Flexion Active (degrees) 130 Extension Active (degrees) 0 PT-OP-L Special Tests Start: 04/20/24 12:58 Freq: Status: Active Protocol: Document 04/20/24 12:58 NM (Rec: 04/20/24 16:11 NM [id number]) Special Tests Lumbar Spine Special Tests Slump Test Results - Comments B Straight Leg Raise Test Results - Comments B Vega/Quadrant Test Results + Comments R PT-OP-M Strength Start: 04/20/24 12:58 Freq: Status: Active Protocol: Document 04/20/24 12:58 NM (Rec: 04/20/24 13:49 NM [id number]) Trunk Strength Trunk Manual Muscle Testing Flexion 3 Fair Extension 3 Fair Rotation Right 4 Good Lateral Flexion Left 4 Good Lateral Flexion Right 4 Good Comments Difficulty stabilizing against resistance Hip Strength Hip Manual Muscle Testing Left Flexion (L2) 4- Good- Extension (S1) 3 Fair Abduction 4- Good- External Rotation 4- Good- Internal Rotation 3 Fair Right Flexion (L2) 4- Good- Extension (S1) 3 Fair Abduction 4- Good- External Rotation 4- Good- Internal Rotation 3 Fair Knee Strength Knee Manual Muscle Testing Right Flexion (S2) 4- Good- Extension (L3) 4- Good- Left Flexion (S2) 4- Good- Extension (L3) 4- Good- Ankle/Foot Strength Ankle and Foot Manual Muscle Testing Right Dorsiflexion (L4) 4- Good- Plantarflexion (S1) 4- Good- Left Dorsiflexion (L4) 4- Good- Plantarflexion (S1) 4- Good- PT-OP-T Assessment and Plan Start: 04/20/24 12:58 Freq: Status: Active Protocol: Document 04/20/24 12:58 NM (Rec: 04/20/24 16:11 NM [id number]) Physical Therapy Assessment Rehab Potential Rehabilitation Potential Fair Evaluation Complexity Number of Personal Factors/Comorbidities 3 or More Number of Body Systems Impaired 3 Clinical Presentation at Evaluation Stable Impairments Impairments Activity Tolerance,Balance, Edema,Functional Activities, Functional Mobility,Gait, Integument,Pain,Posture,ROM, Sensation,Soft Tissue Mobility ,Strength,Transfers Goals Six Impairment stairs Nitroglycerin Distributor Goal (LTG) Pt will report no increase in baseline pain or poor trunk stability when performing at least 8 stairs with or without hand rail in order to demonstrate improved activity tolerance, pain management, and QOL LTG Duration 12 weeks Five Impairment balance Short Term Goal (STG) Pt will increase Tinetti score >18/28 in order to move from high fall risk to moderate fall risk during gait and stairs STG Duration 6 weeks Nitroglycerin Distributor Goal (LTG) Pt will increase Tinetti score >23/28 in order to move from high fall risk to moderate fall risk during gait and stairs LTG Duration 12 weeks Four Impairment strength Short Term Goal (STG) Pt will improve B knee flexion and extension strength to at least 4/5 in order to demonstrate improved stability on stairs and with gait STG Duration 6 weeks Fpc Goal (LTG) Pt will improve B knee flexion and extension strength to at least 4+/5 in order to demonstrate improved stability on stairs and with gait LTG Duration 12 weeks Three Impairment strength Short Term Goal (STG) Pt will increase B hip extension and abduction strength to at least 4-/5 in order to demonstrate improved hip strength for gait, balance , and to decrease fall risk STG Duration 6 weeks Nitroglycerin Distributor Goal (LTG) Pt will increase B hip extension and abduction strength to at least 4+/5 in order to demonstrate improved hip strength for gait, balance , and to decrease fall risk LTG Duration 12 weeks Two Impairment STS Short Term Goal (STG) Pt will be able to perform 5x STS without compensation or increase in baseline pain in order to demonstrate improved BLE strength for transfers and gait STG Duration 6 weeks Fpc Goal (LTG) Pt will be able to perform at least 11 sit to reservoir engineering advisor 30 seconds (age related norm) without increase in baseline pain in order to demonstrate improved BLE strength for transfers and gait LTG Duration 12 weeks One Impairment ambulation Short Term Goal (STG) Pt will report that he is able to ambulate community distance with or without LRAD without increase in baseline pain in order to demonstrate improved symptom management and social participation STG Duration 6 weeks Fpc Goal (LTG) Pt will report that he is able to ambulate any distance with or without LRAD without increase in baseline pain in order to demonstrate improved symptom management and social participation LTG Duration 12 weeks Assessment Summary Assessment Pt is a 88 y.o. male presenting with chronic bilateral back and knee pain. Past imaging reveals hx of multilevel lumbar spondylolisthesis, which likely influence his back pain . Pt has impairments in ROM, strength, balance, gait, transfers, stairs, activity tolerance, ADLs/IADLs, and pain management. Pt has limited and painful trunk ROM, and he is able to maintain trunk stability against resistance with difficulty. He has poor ability to stabilize core and is a 15/28 on Tinetti balance test, indicating high fall risk. Pt has limited hip ROM bilaterally, and limitations in R knee ROM. His bilateral leg strength is reduced and pain free. Pt has difficulty with maintaining balance and stairs and during transfers. He uses an AD but not present to clinic using his spc. He has a hx of R TKA and possible OA. Pt has several co- morbidities and has had several falls. PT discussed exam findings with pt and plan of care; pt verbalizes agreement. Pt would benefit from skilled PT for global trunk and BLE strengthening in order to improve activity tolerance and ability to participate in ADLs, improve body mechanics and awareness, and to decrease pain symptoms and fall risk. Physical Therapy Plan Frequency and Duration Frequency of Treatment 2x/Week Duration of treatment (weeks) 12 Plan of Care Start Date 04/20/24 Plan of Care End Date 07/14/24 Therapeutic Interventions Therapeutic Interventions Balance Training,Gait Training ,Home Exercise Program,Joint Mobilizations,Manual Therapy, Neuromuscular Re-education, Orthotic/Prosthetic Management ,Patient/Caregiver Education, Self-Care/Home Management, Sensory Integration,Soft Tissue Mobilization,Taping, Therapeutic Activities, Therapeutic Exercises Modalities Cold Pack/Ice Massage,Hot Packs Other Therapeutic Interventions pelvic realignment manual traction Next Visit Focus/Plan Next Note Type Treatment Note Next Visit Plan monitor vitals during exericse, hx of spondylolisthesis Edu to avoid repetitive spinal flexion Hamstring stretch, core bracing with flexion bias, hip abd strengthening (trial sidelying or seated vs standing), sit to stand retraining w/o HS assist and band
--- NOTE | 2024-04-21 15:45 | PT.OIE ---
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) Weakness (04/20/24) Past Medical History (Last Updated 03/31/24 @ 14:43 by Chriss Mayorga MD) Abdominal aortic aneurysm (AAA) (06/24/15) Asymptomatic microscopic hematuria Benign essential HTN (09/22/11) Bilateral cataracts BPH w urinary obs/LUTS Coronary artery disease involving [place] coronary artery of [place] heart without angina pectoris (02/15/17) Current use of usp anticoagulation Facet arthropathy, lumbar History of endovascular stent graft for abdominal aortic aneurysm (AAA) (09/21/17) History of radiation therapy Hyperlipidemia, mixed (09/22/11) Left knee DJD Lumbar stenosis with neurogenic claudication Mild neurocognitive disorder Overactive bladder Paroxysmal atrial fibrillation (~04/2023) Peripheral edema Prostate cancer Spondylolisthesis at L4-L5 level Status post repair of abdominal aortic aneurysm (AAA) using straight graft (09/21/17) Urinary Incontinence Past Surgical History (Last Reviewed 03/22/24 @ 14:53 by Tyshawn Abdullahi DO) H/O endovascular stent graft for abdominal aortic aneurysm (~06/2019) History of appendectomy History of coronary artery bypass graft x 3 (~12/2009) History of knee replacement procedure of right knee Hx laparoscopic cholecystectomy Visit Care Team Role Provider Type Chriss Mayorga MD Family Provider Physician Primary Care Provider Specialty: Internal Medicine Address: [address] [place] [address], [address], [address] Email: [email or web address] Tyshawn Abdullahi DO Attending Provider Physician Referring Provider Specialty: Interventional Radiology Physiatry Pain Management Address: [address] [place] [address], [address] Email: [email or web address] Physical Therapy Initial Evaluation PT-OP-A Visit Information Start: 04/20/24 12:58 Freq: Status: Active Protocol: Document 04/20/24 12:58 NM (Rec: 04/20/24 13:49 NM [id number]) Out-Patient Physical Therapy Visit Information Visit Information Visit Type Initial Evaluation Visit Start Time 13:00 Visit Stop Time 13:47 Visit Number 1 Evaluation Information Evaluation Date 04/20/24 Precautions Precautions Fall risk, hx of heart attack and triple bypass monitor vitals with activity , fall risk PT-OP-B Current Condition Start: 04/20/24 12:58 Freq: Status: Active Protocol: Document 04/20/24 12:58 NM (Rec: 04/20/24 13:49 NM [id number]) Current Condition History of Current Condition Current Complaints pain, mobility, strength, balance History of Current Condition Pt reports back pain and B knee pain. He also has a fat pad in his back. Pain is bilateral and along the spine. Reports he also has R thigh pain, which limits his mobility. He sleeps on his L side primarily but has L shoulder pain too. His back pain is the primary limit for his mobility, no DANIAL but chronic. Has had several injections for pain recently and gets weekly massage, which helps. He reports due to his knees that he has difficulty with walking (speed and distance), transfers from a chair (leg pain and weakness), floor transfer (uses hands), stairs. He has had the R knee replaced. Uses cane for gait but did not bring today. He has fallen 3x times backward when he was standing, so the cane helps keep him from falling backward. He just renovated his home to one story, but still has stairs in his house. 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 Currently, pt does an exercise routine and cardiac rehab 2- 3x/wk, but no other exercise. Wants to go back on family walks again for any distance but has not since before covid Prior Treatments and Tests previous PT at different clinic Treatment Goals Patient/Caregiver Goals walk better, less back pain Prior Functional Status Baseline Function- Recreation/Hobbies exercise routine - 100 toe touches Baseline Function- Other massage 1x/wk Current Functional Impairments (Reported) Functional Limitations- Mobility/Gait unable to participate in family walks Functional Limitations- Recreation/ pain with exercise, toe Hobbies touches row club 3x/wk (does the talking) PT-OP-C Subjective Start: 04/20/24 12:58 Freq: Status: Active Protocol: Document 04/20/24 12:58 NM (Rec: 04/20/24 13:49 NM [id number]) OP-PT Subjective Patient Comments Patient Comments see hx above for pt report Patient Questionnaires Oswestry Low Back Index Oswestry Score 11/50 OP-PT Pain Assessment Location knees Pain Aggravating Factors Standing,Walking,Stair Climbing lumbar spine Pain Location Details R sided (3/4 from spine to hip ) Scale Used Numeric (0 - 10) Description Aching Description- Other morning worse, better as day improves Radiating Location hip Variations/Patterns to quad (mid quad)- sharp like a needle Pain Aggravating Factors ADL's,Walking,Lifting Pain Alleviating Factors Massage PT-OP-E Functional Tests Start: 04/20/24 12:58 Freq: Status: Active Protocol: Document 04/20/24 12:58 NM (Rec: 04/20/24 13:49 NM [id number]) Functional Tests 30 Second Sit to Stand Test Score 10 Comments feel it in knees, use HS to stabilize, poor eccentric Five Times Sit to Stand Test Score 13 sec Comments use HS to stabilize, poor eccentric Tinetti Balance and Gait Assessment Balance Score 8 Gait Score 7 Composite Score 15/28 Other Forward Trunk Flexion Test Name of Test measured fingers to floor Score 9 Comment reproduces pain, tight hamstrings PT-OP-F Manual Assessment Start: 04/20/24 12:58 Freq: Status: Active Protocol: Document 04/20/24 12:58 NM (Rec: 04/20/24 13:49 NM [id number]) Manual Assessments Soft Tissue Assessment Soft Tissue Mobility Assessment Tight hip flexors bilaterally (+ massimo test), increased tone in paraspinals especially QL. L trunk periscapular and paraspinals are more restricted and elevated than R side Joint Mobility Assessment Joint Mobility Assessment Decreased lumbar spine and hip mobility. Hypomobility with P -A springing of lumbar spine spinous processes (not tender) and PSIS/SIJ (tender) - R>L PT-OP-G Mobility & Gait Start: 04/20/24 12:58 Freq: Status: Active Protocol: Document 04/20/24 12:58 NM (Rec: 04/20/24 16:11 NM [id number]) OP Gait Assessment Gait Gait Assistance Required: Standby Assistance Distance (Feet) 150 Assistive Devices Assistive Device Gait Belt Gait Deviations General Gait Pattern Antalgic,Decreased Feet Clearance,Flexed Trunk Factors Limiting Gait Function Factors Limiting Gait Function Decreased Activity Tolerance, Decreased Sensation,Decreased Strength,Limited Range of Motion,Pain,Poor Balance Comments Gait Comments uses AD normally Stair Climbing Evaluation Evaluation Level of Assist On Stairs Contact Guard Assistance Devices Stair Climbing Assistive Devices Left Railing,Right Railing Technique/Endurance Stair Climbing Direction Ascend and Descend Stair Climbing Technique Step Over Step Number of Steps Climbed 4 Stair Climbing Set # Repetitions (reps) 1 Comments Stair Climbing Comments Poor trunk and knee stability with descent. Reproduces knee pain PT-OP-J Posture/Palpation/Skin Start: 04/20/24 12:58 Freq: Status: Active Protocol: Document 04/20/24 12:58 NM (Rec: 04/20/24 16:11 NM [id number]) Posture Evaluation Position Standing Head/C-Spine Posture Forward Head T-Spine Posture Increased Kyphosis L-Spine Posture Increased Lordosis Shoulder Posture (L) Rounded,(R) Rounded,(L) Forward,(L) Elevated Pelvis Posture Anteriorly Tilted Weight Distribution Balanced Hip Posture (L) Externally Rotated,(R) Externally Rotated Knee Posture (L) Genu Valgus,(R) Genu Valgus Ankle/Foot Posture (L) Pronated,(R) Pronated Palpation Assessment Location B knees Palpation Details Tenderness along medial and lateral knees, patellar tendon Tenderness along R quad Tightness of B quads lumbar spine Palpation Details Tenderness along PSIS/SIJ, R>L , QL/paraspinals No midline tenderness. Tenderness lateral to spinous processes. PT-OP-K Range of Motion Start: 04/20/24 12:58 Freq: Status: Active Protocol: Document 04/20/24 12:58 NM (Rec: 04/20/24 13:49 NM [id number]) Lumbar Spine Range of Motion Lumbar Spine Active Percentage Flexion 75 Extension 50 Rotation Left 100 Rotation Right 100 Lateral Flexion Left 75 Lateral Flexion Right 50 Comments Pain reproduced with flex, B lateral flex Hip Goniometric Range of Motion Hip Right Internal Rotation 10 External Rotation 30 Left Internal Rotation 10 External Rotation 20 Knee Goniometric Range of Motion Knee Right Flexion Active (degrees) 128 Extension Active (degrees) 0 Left Flexion Active (degrees) 130 Extension Active (degrees) 0 PT-OP-L Special Tests Start: 04/20/24 12:58 Freq: Status: Active Protocol: Document 04/20/24 12:58 NM (Rec: 04/20/24 16:11 NM [id number]) Special Tests Lumbar Spine Special Tests Slump Test Results - Comments B Straight Leg Raise Test Results - Comments B Vega/Quadrant Test Results + Comments R PT-OP-M Strength Start: 04/20/24 12:58 Freq: Status: Active Protocol: Document 04/20/24 12:58 NM (Rec: 04/20/24 13:49 NM [id number]) Trunk Strength Trunk Manual Muscle Testing Flexion 3 Fair Extension 3 Fair Rotation Right 4 Good Lateral Flexion Left 4 Good Lateral Flexion Right 4 Good Comments Difficulty stabilizing against resistance Hip Strength Hip Manual Muscle Testing Left Flexion (L2) 4- Good- Extension (S1) 3 Fair Abduction 4- Good- External Rotation 4- Good- Internal Rotation 3 Fair Right Flexion (L2) 4- Good- Extension (S1) 3 Fair Abduction 4- Good- External Rotation 4- Good- Internal Rotation 3 Fair Knee Strength Knee Manual Muscle Testing Right Flexion (S2) 4- Good- Extension (L3) 4- Good- Left Flexion (S2) 4- Good- Extension (L3) 4- Good- Ankle/Foot Strength Ankle and Foot Manual Muscle Testing Right Dorsiflexion (L4) 4- Good- Plantarflexion (S1) 4- Good- Left Dorsiflexion (L4) 4- Good- Plantarflexion (S1) 4- Good- PT-OP-T Assessment and Plan Start: 04/20/24 12:58 Freq: Status: Active Protocol: Document 04/20/24 12:58 NM (Rec: 04/20/24 16:11 NM [id number]) Physical Therapy Assessment Rehab Potential Rehabilitation Potential Fair Evaluation Complexity Number of Personal Factors/Comorbidities 3 or More Number of Body Systems Impaired 3 Clinical Presentation at Evaluation Stable Impairments Impairments Activity Tolerance,Balance, Edema,Functional Activities, Functional Mobility,Gait, Integument,Pain,Posture,ROM, Sensation,Soft Tissue Mobility ,Strength,Transfers Goals Six Impairment stairs [place] Tower Loader Goal (LTG) Pt will report no increase in baseline pain or poor trunk stability when performing at least 8 stairs with or without hand rail in order to demonstrate improved activity tolerance, pain management, and QOL LTG Duration 12 weeks Five Impairment balance Short Term Goal (STG) Pt will increase Tinetti score >18/28 in order to move from high fall risk to moderate fall risk during gait and stairs STG Duration 6 weeks [place] Tower Loader Goal (LTG) Pt will increase Tinetti score >23/28 in order to move from high fall risk to moderate fall risk during gait and stairs LTG Duration 12 weeks Four Impairment strength Short Term Goal (STG) Pt will improve B knee flexion and extension strength to at least 4/5 in order to demonstrate improved stability on stairs and with gait STG Duration 6 weeks [facility] Goal (LTG) Pt will improve B knee flexion and extension strength to at least 4+/5 in order to demonstrate improved stability on stairs and with gait LTG Duration 12 weeks Three Impairment strength Short Term Goal (STG) Pt will increase B hip extension and abduction strength to at least 4-/5 in order to demonstrate improved hip strength for gait, balance , and to decrease fall risk STG Duration 6 weeks [place] Tower Loader Goal (LTG) Pt will increase B hip extension and abduction strength to at least 4+/5 in order to demonstrate improved hip strength for gait, balance , and to decrease fall risk LTG Duration 12 weeks Two Impairment STS Short Term Goal (STG) Pt will be able to perform 5x STS without compensation or increase in baseline pain in order to demonstrate improved BLE strength for transfers and gait STG Duration 6 weeks [facility] Goal (LTG) Pt will be able to perform at least 11 sit to wet 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 30 seconds (age related norm) without increase in baseline pain in order to demonstrate improved BLE strength for transfers and gait LTG Duration 12 weeks One Impairment ambulation Short Term Goal (STG) Pt will report that he is able to ambulate community distance with or without LRAD without increase in baseline pain in order to demonstrate improved symptom management and social participation STG Duration 6 weeks [facility] Goal (LTG) Pt will report that he is able to ambulate any distance with or without LRAD without increase in baseline pain in order to demonstrate improved symptom management and social participation LTG Duration 12 weeks Assessment Summary Assessment Pt is a 88 y.o. male presenting with chronic bilateral back and knee pain. Past imaging reveals hx of multilevel lumbar spondylolisthesis, which likely influence his back pain . Pt has impairments in ROM, strength, balance, gait, transfers, stairs, activity tolerance, ADLs/IADLs, and pain management. Pt has limited and painful trunk ROM, and he is able to maintain trunk stability against resistance with difficulty. He has poor ability to stabilize core and is a 15/28 on Tinetti balance test, indicating high fall risk. Pt has limited hip ROM bilaterally, and limitations in R knee ROM. His bilateral leg strength is reduced and pain free. Pt has difficulty with maintaining balance and stairs and during transfers. He uses an AD but not present to clinic using his spc. He has a hx of R TKA and possible OA. Pt has several co- morbidities and has had several falls. PT discussed exam findings with pt and plan of care; pt verbalizes agreement. Pt would benefit from skilled PT for global trunk and BLE strengthening in order to improve activity tolerance and ability to participate in ADLs, improve body mechanics and awareness, and to decrease pain symptoms and fall risk. Physical Therapy Plan Frequency and Duration Frequency of Treatment 2x/Week Duration of treatment (weeks) 12 Plan of Care Start Date 04/20/24 Plan of Care End Date 07/14/24 Therapeutic Interventions Therapeutic Interventions Balance Training,Gait Training ,Home Exercise Program,Joint Mobilizations,Manual Therapy, Neuromuscular Re-education, Orthotic/Prosthetic Management ,Patient/Caregiver Education, Self-Care/Home Management, Sensory Integration,Soft Tissue Mobilization,Taping, Therapeutic Activities, Therapeutic Exercises Modalities Cold Pack/Ice Massage,Hot Packs Other Therapeutic Interventions pelvic realignment manual traction Next Visit Focus/Plan Next Note Type Treatment Note Next Visit Plan monitor vitals during exericse, hx of spondylolisthesis Edu to avoid repetitive spinal flexion Hamstring stretch, core bracing with flexion bias, hip abd strengthening (trial sidelying or seated vs standing), sit to stand retraining w/o HS assist and band
--- NOTE | 2024-04-24 11:30 | PT.OTN ---
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/24) Weakness (04/24/24) Physical Therapy Treatment Note PT-OP-A Visit Information Start: 04/20/24 12:58 Freq: Status: Active Protocol: Document 04/24/24 09:50 NM (Rec: 04/24/24 10:35 NM [id number]) Out-Patient Physical Therapy Visit Information Visit Information Visit Type Treatment Note Visit Start Time 09:50 Visit Stop Time 10:30 Visit Number 2 Evaluation Information Evaluation Date 04/20/24 Precautions Precautions Fall risk, hx of heart attack and triple bypass monitor vitals with activity , fall risk PT-OP-B Current Condition Start: 04/20/24 12:58 Freq: Status: Active Protocol: Document 04/20/24 12:58 NM (Rec: 04/20/24 13:49 NM [id number]) Current Condition History of Current Condition Current Complaints pain, mobility, strength, balance History of Current Condition Pt reports back pain and B knee pain. He also has a fat pad in his back. Pain is bilateral and along the spine. Reports he also has R thigh pain, which limits his mobility. He sleeps on his L side primarily but has L shoulder pain too. His back pain is the primary limit for his mobility, no DANIAL but chronic. Has had several injections for pain recently and gets weekly massage, which helps. He reports due to his knees that he has difficulty with walking (speed and distance), transfers from a chair (leg pain and weakness), floor transfer (uses hands), stairs. He has had the R knee replaced. Uses cane for gait but did not bring today. He has fallen 3x times backward when he was standing, so the cane helps keep him from falling backward. He just renovated his home to one story, but still has stairs in his house. 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 Currently, pt does an exercise routine and cardiac rehab 2- 3x/wk, but no other exercise. Wants to go back on family walks again for any distance but has not since before covid Prior Treatments and Tests previous PT at different clinic Treatment Goals Patient/Caregiver Goals walk better, less back pain Prior Functional Status Baseline Function- Recreation/Hobbies exercise routine - 100 toe touches Baseline Function- Other massage 1x/wk Current Functional Impairments (Reported) Functional Limitations- Mobility/Gait unable to participate in family walks Functional Limitations- Recreation/ pain with exercise, toe Hobbies touches row club 3x/wk (does the talking) PT-OP-C Subjective Start: 04/20/24 12:58 Freq: Status: Active Protocol: Document 04/24/24 09:50 NM (Rec: 04/24/24 10:35 NM [id number]) OP-PT Subjective Patient Comments Patient Comments pt reports that he forgot that he fell 2 weeks ago and then 1 month ago while trying to picker tender caterpillars. States his lower L ribs hurt b ecause he fell on them 2 weeks ago, no pain with palpation but can identify where. Did not go get assessed by doctor. Denies pain with palpation or breathing. then reports that onset started 2 days ago but denies falling or bumping ribs . PT-OP-E Functional Tests Start: 04/20/24 12:58 Freq: Status: Active Protocol: Document 04/20/24 12:58 NM (Rec: 04/20/24 13:49 NM [id number]) Functional Tests 30 Second Sit to Stand Test Score 10 Comments feel it in knees, use HS to stabilize, poor eccentric Five Times Sit to Stand Test Score 13 sec Comments use HS to stabilize, poor eccentric Tinetti Balance and Gait Assessment Balance Score 8 Gait Score 7 Composite Score 15/28 Other Forward Trunk Flexion Test Name of Test measured fingers to floor Score 9 Comment reproduces pain, tight hamstrings PT-OP-F Manual Assessment Start: 04/20/24 12:58 Freq: Status: Active Protocol: Document 04/20/24 12:58 NM (Rec: 04/20/24 13:49 NM [id number]) Manual Assessments Soft Tissue Assessment Soft Tissue Mobility Assessment Tight hip flexors bilaterally (+ massimo test), increased tone in paraspinals especially QL. L trunk periscapular and paraspinals are more restricted and elevated than R side Joint Mobility Assessment Joint Mobility Assessment Decreased lumbar spine and hip mobility. Hypomobility with P -A springing of lumbar spine spinous processes (not tender) and PSIS/SIJ (tender) - R>L PT-OP-G Mobility & Gait Start: 04/20/24 12:58 Freq: Status: Active Protocol: Document 04/20/24 12:58 NM (Rec: 04/20/24 16:11 NM [id number]) OP Gait Assessment Gait Gait Assistance Required: Standby Assistance Distance (Feet) 150 Assistive Devices Assistive Device Gait Belt Gait Deviations General Gait Pattern Antalgic,Decreased Feet Clearance,Flexed Trunk Factors Limiting Gait Function Factors Limiting Gait Function Decreased Activity Tolerance, Decreased Sensation,Decreased Strength,Limited Range of Motion,Pain,Poor Balance Comments Gait Comments uses AD normally Stair Climbing Evaluation Evaluation Level of Assist On Stairs Contact Guard Assistance Devices Stair Climbing Assistive Devices Left Railing,Right Railing Technique/Endurance Stair Climbing Direction Ascend and Descend Stair Climbing Technique Step Over Step Number of Steps Climbed 4 Stair Climbing Set # Repetitions (reps) 1 Comments Stair Climbing Comments Poor trunk and knee stability with descent. Reproduces knee pain PT-OP-J Posture/Palpation/Skin Start: 04/20/24 12:58 Freq: Status: Active Protocol: Document 04/20/24 12:58 NM (Rec: 04/20/24 16:11 NM [id number]) Posture Evaluation Position Standing Head/C-Spine Posture Forward Head T-Spine Posture Increased Kyphosis L-Spine Posture Increased Lordosis Shoulder Posture (L) Rounded,(R) Rounded,(L) Forward,(L) Elevated Pelvis Posture Anteriorly Tilted Weight Distribution Balanced Hip Posture (L) Externally Rotated,(R) Externally Rotated Knee Posture (L) Genu Valgus,(R) Genu Valgus Ankle/Foot Posture (L) Pronated,(R) Pronated Palpation Assessment Location B knees Palpation Details Tenderness along medial and lateral knees, patellar tendon Tenderness along R quad Tightness of B quads lumbar spine Palpation Details Tenderness along PSIS/SIJ, R>L , QL/paraspinals No midline tenderness. Tenderness lateral to spinous processes. PT-OP-K Range of Motion Start: 04/20/24 12:58 Freq: Status: Active Protocol: Document 04/20/24 12:58 NM (Rec: 04/20/24 13:49 NM [id number]) Lumbar Spine Range of Motion Lumbar Spine Active Percentage Flexion 75 Extension 50 Rotation Left 100 Rotation Right 100 Lateral Flexion Left 75 Lateral Flexion Right 50 Comments Pain reproduced with flex, B lateral flex Hip Goniometric Range of Motion Hip Right Internal Rotation 10 External Rotation 30 Left Internal Rotation 10 External Rotation 20 Knee Goniometric Range of Motion Knee Right Flexion Active (degrees) 128 Extension Active (degrees) 0 Left Flexion Active (degrees) 130 Extension Active (degrees) 0 PT-OP-L Special Tests Start: 04/20/24 12:58 Freq: Status: Active Protocol: Document 04/20/24 12:58 NM (Rec: 04/20/24 16:11 NM [id number]) Special Tests Lumbar Spine Special Tests Slump Test Results - Comments B Straight Leg Raise Test Results - Comments B Vega/Quadrant Test Results + Comments R PT-OP-M Strength Start: 04/20/24 12:58 Freq: Status: Active Protocol: Document 04/20/24 12:58 NM (Rec: 04/20/24 13:49 NM [id number]) Trunk Strength Trunk Manual Muscle Testing Flexion 3 Fair Extension 3 Fair Rotation Right 4 Good Lateral Flexion Left 4 Good Lateral Flexion Right 4 Good Comments Difficulty stabilizing against resistance Hip Strength Hip Manual Muscle Testing Left Flexion (L2) 4- Good- Extension (S1) 3 Fair Abduction 4- Good- External Rotation 4- Good- Internal Rotation 3 Fair Right Flexion (L2) 4- Good- Extension (S1) 3 Fair Abduction 4- Good- External Rotation 4- Good- Internal Rotation 3 Fair Knee Strength Knee Manual Muscle Testing Right Flexion (S2) 4- Good- Extension (L3) 4- Good- Left Flexion (S2) 4- Good- Extension (L3) 4- Good- Ankle/Foot Strength Ankle and Foot Manual Muscle Testing Right Dorsiflexion (L4) 4- Good- Plantarflexion (S1) 4- Good- Left Dorsiflexion (L4) 4- Good- Plantarflexion (S1) 4- Good- PT-OP-Q Treatments Start: 04/20/24 12:58 Freq: Status: Active Protocol: Document 04/24/24 09:50 NM (Rec: 04/24/24 10:35 NM [id number]) Therapeutic Exercises Supine Exercises TrA activation Supine Exercise Name 1. core bracing, 2. BFKO Side bilateral Resistance AROM Reps/Minutes 1. 5x3-5 hold, 2. 10 Comments good core brace w/ breathing, cued for form, smaller ROM with BKFO, smoother Hamstring stretch Supine Exercise Name with knee flex/ext Side bilateral Equipment Used towel behind knee to assist Reps/Minutes 60 Comments instead of toe touches at home Sidelying Exercises reverse clams Side bilateral Resistance AROM Reps/Minutes 2x8 Comments very limited range; challenging clams Side bilateral Resistance AROM Reps/Minutes 2x10 with 3 raise (small hold at end range) Comments cued no trunk rotation, R harder Manual Therapy Treatment Soft Tissue Mobilization glutes/piriformis/HS/calves Body Location Bilateral Mobilization Type Rolling,Strumming Intensity/Depth Moderate Body Position Sidelying Comments No tenderness but demos increased tightness of lumbar paraspinals Body Location bilateral Mobilization Type Rolling,Strumming Intensity/Depth Moderate Body Position Sidelying Comments Avoiding lower ribs. Lumbar paraspinals and QL, no tenderness. Reports good feedback to soft tissue mobilization Self-Care/Home Management Treatment Education Patient Education Home Exercise Program,Safety Other Education SPC adjusted for safety and correct use HEP: clams, BKFO, supine HS mobilization/stretch PT-OP-T Assessment and Plan Start: 04/20/24 12:58 Freq: Status: Active Protocol: Document 04/24/24 09:50 NM (Rec: 04/24/24 10:35 NM [id number]) Physical Therapy Assessment Goals Six Impairment stairs [employer] Team Leader Goal (LTG) Pt will report no increase in baseline pain or poor trunk stability when performing at least 8 stairs with or without hand rail in order to demonstrate improved activity tolerance, pain management, and QOL LTG Duration 12 weeks Five Impairment balance Short Term Goal (STG) Pt will increase Tinetti score >18/28 in order to move from high fall risk to moderate fall risk during gait and stairs STG Duration 6 weeks Group Home Goal (LTG) Pt will increase Tinetti score >23/28 in order to move from high fall risk to moderate fall risk during gait and stairs LTG Duration 12 weeks Four Impairment strength Short Term Goal (STG) Pt will improve B knee flexion and extension strength to at least 4/5 in order to demonstrate improved stability on stairs and with gait STG Duration 6 weeks Group Home Goal (LTG) Pt will improve B knee flexion and extension strength to at least 4+/5 in order to demonstrate improved stability on stairs and with gait LTG Duration 12 weeks Three Impairment strength Short Term Goal (STG) Pt will increase B hip extension and abduction strength to at least 4-/5 in order to demonstrate improved hip strength for gait, balance , and to decrease fall risk STG Duration 6 weeks [employer] Team Leader Goal (LTG) Pt will increase B hip extension and abduction strength to at least 4+/5 in order to demonstrate improved hip strength for gait, balance , and to decrease fall risk LTG Duration 12 weeks Two Impairment STS Short Term Goal (STG) Pt will be able to perform 5x STS without compensation or increase in baseline pain in order to demonstrate improved BLE strength for transfers and gait STG Duration 6 weeks Group Home Goal (LTG) Pt will be able to perform at least 11 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 (age related norm) without increase in baseline pain in order to demonstrate improved BLE strength for transfers and gait LTG Duration 12 weeks One Impairment ambulation Short Term Goal (STG) Pt will report that he is able to ambulate community distance with or without LRAD without increase in baseline pain in order to demonstrate improved symptom management and social participation STG Duration 6 weeks Group Home Goal (LTG) Pt will report that he is able to ambulate any distance with or without LRAD without increase in baseline pain in order to demonstrate improved symptom management and social participation LTG Duration 12 weeks Assessment Summary Assessment Pt tolerated session well, but reports no change at end of session. PT recommended pt follow up with PCP if he continues to have rib pain as pt has changed story multiple times during session. He denies pain with palpation of his rib, with breathing, or with exercise. However, he reports falling within past 2 weeks, which he did not report at evaluation. Initiated hip strengthening in sidelying. Pt challenged by clams and reverse clams, cued for form. Demonstrates both weakness and limited hip mobility. Pt demonstrates good core bracing in isolatio but challenged to maintain functionally or with creating smooth motions. Responds well to manual therapy. Pt would benefit from skilled PT for core/lumbar/ hip strengthening and body mechanics training to improve safety, pain management and activity tolerance. Physical Therapy Plan Frequency and Duration Frequency of Treatment 2x/Week Duration of treatment (weeks) 12 Plan of Care Start Date 04/20/24 Plan of Care End Date 07/14/24 Therapeutic Interventions Therapeutic Interventions Balance Training,Gait Training ,Home Exercise Program,Joint Mobilizations,Manual Therapy, Neuromuscular Re-education, Orthotic/Prosthetic Management ,Patient/Caregiver Education, Self-Care/Home Management, Sensory Integration,Soft Tissue Mobilization,Taping, Therapeutic Activities, Therapeutic Exercises Modalities Cold Pack/Ice Massage,Hot Packs Other Therapeutic Interventions pelvic realignment manual traction Next Visit Focus/Plan Next Note Type Treatment Note Next Visit Plan monitor vitals during exercise, hx of spondylolisthesis Follow up about rib if still hurts. supine HS stretch, STM as needed to LS and glutes/HS, review hip rotation with reverse/regular clams, add s/l hip abd vs side steps with hand support, STS training and hip hinge training, progress core and glute strengthening Hamstring stretch, core bracing with flexion bias, hip abd strengthening (trial sidelying or seated vs standing), sit to stand retraining w/o HS assist and band no lumbar vertebral mobilizations
--- NOTE | 2024-04-27 09:02 | PT.OTN ---
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) Weakness (04/27/24) Physical Therapy Treatment Note PT-OP-A Visit Information Start: 04/20/24 12:58 Freq: Status: Active Protocol: Document 04/27/24 08:15 NM (Rec: 04/27/24 09:02 NM [id number]) Out-Patient Physical Therapy Visit Information Visit Information Visit Type Treatment Note Visit Start Time 08:20 Visit Stop Time 08:59 Visit Number 3 Evaluation Information Evaluation Date 04/20/24 Precautions Precautions Fall risk, hx of heart attack and triple bypass monitor vitals with activity , fall risk PT-OP-B Current Condition Start: 04/20/24 12:58 Freq: Status: Active Protocol: Document 04/20/24 12:58 NM (Rec: 04/20/24 13:49 NM [id number]) Current Condition History of Current Condition Current Complaints pain, mobility, strength, balance History of Current Condition Pt reports back pain and B knee pain. He also has a fat pad in his back. Pain is bilateral and along the spine. Reports he also has R thigh pain, which limits his mobility. He sleeps on his L side primarily but has L shoulder pain too. His back pain is the primary limit for his mobility, no DANIAL but chronic. Has had several injections for pain recently and gets weekly massage, which helps. He reports due to his knees that he has difficulty with walking (speed and distance), transfers from a chair (leg pain and weakness), floor transfer (uses hands), stairs. He has had the R knee replaced. Uses cane for gait but did not bring today. He has fallen 3x times backward when he was standing, so the cane helps keep him from falling backward. He just renovated his home to one story, but still has stairs in his house. 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 Currently, pt does an exercise routine and cardiac rehab 2- 3x/wk, but no other exercise. Wants to go back on family walks again for any distance but has not since before covid Prior Treatments and Tests previous PT at different clinic Treatment Goals Patient/Caregiver Goals walk better, less back pain Prior Functional Status Baseline Function- Recreation/Hobbies exercise routine - 100 toe touches Baseline Function- Other massage 1x/wk Current Functional Impairments (Reported) Functional Limitations- Mobility/Gait unable to participate in family walks Functional Limitations- Recreation/ pain with exercise, toe Hobbies touches row club 3x/wk (does the talking) PT-OP-C Subjective Start: 04/20/24 12:58 Freq: Status: Active Protocol: Document 04/27/24 08:15 NM (Rec: 04/27/24 09:02 NM [id number]) OP-PT Subjective Patient Comments Patient Comments Pt late to session. Pt reports 4/10 back pain, states just woke up so it's his normal. Reports has questions, uses his belt for the hamstring stretch PT-OP-E Functional Tests Start: 04/20/24 12:58 Freq: Status: Active Protocol: Document 04/20/24 12:58 NM (Rec: 04/20/24 13:49 NM [id number]) Functional Tests 30 Second Sit to Stand Test Score 10 Comments feel it in knees, use HS to stabilize, poor eccentric Five Times Sit to Stand Test Score 13 sec Comments use HS to stabilize, poor eccentric Tinetti Balance and Gait Assessment Balance Score 8 Gait Score 7 Composite Score 15/28 Other Forward Trunk Flexion Test Name of Test measured fingers to floor Score 9 Comment reproduces pain, tight hamstrings PT-OP-F Manual Assessment Start: 04/20/24 12:58 Freq: Status: Active Protocol: Document 04/20/24 12:58 NM (Rec: 04/20/24 13:49 NM [id number]) Manual Assessments Soft Tissue Assessment Soft Tissue Mobility Assessment Tight hip flexors bilaterally (+ massimo test), increased tone in paraspinals especially QL. L trunk periscapular and paraspinals are more restricted and elevated than R side Joint Mobility Assessment Joint Mobility Assessment Decreased lumbar spine and hip mobility. Hypomobility with P -A springing of lumbar spine spinous processes (not tender) and PSIS/SIJ (tender) - R>L PT-OP-G Mobility & Gait Start: 04/20/24 12:58 Freq: Status: Active Protocol: Document 04/20/24 12:58 NM (Rec: 04/20/24 16:11 NM [id number]) OP Gait Assessment Gait Gait Assistance Required: Standby Assistance Distance (Feet) 150 Assistive Devices Assistive Device Gait Belt Gait Deviations General Gait Pattern Antalgic,Decreased Feet Clearance,Flexed Trunk Factors Limiting Gait Function Factors Limiting Gait Function Decreased Activity Tolerance, Decreased Sensation,Decreased Strength,Limited Range of Motion,Pain,Poor Balance Comments Gait Comments uses AD normally Stair Climbing Evaluation Evaluation Level of Assist On Stairs Contact Guard Assistance Devices Stair Climbing Assistive Devices Left Railing,Right Railing Technique/Endurance Stair Climbing Direction Ascend and Descend Stair Climbing Technique Step Over Step Number of Steps Climbed 4 Stair Climbing Set # Repetitions (reps) 1 Comments Stair Climbing Comments Poor trunk and knee stability with descent. Reproduces knee pain PT-OP-J Posture/Palpation/Skin Start: 04/20/24 12:58 Freq: Status: Active Protocol: Document 04/20/24 12:58 NM (Rec: 04/20/24 16:11 NM [id number]) Posture Evaluation Position Standing Head/C-Spine Posture Forward Head T-Spine Posture Increased Kyphosis L-Spine Posture Increased Lordosis Shoulder Posture (L) Rounded,(R) Rounded,(L) Forward,(L) Elevated Pelvis Posture Anteriorly Tilted Weight Distribution Balanced Hip Posture (L) Externally Rotated,(R) Externally Rotated Knee Posture (L) Genu Valgus,(R) Genu Valgus Ankle/Foot Posture (L) Pronated,(R) Pronated Palpation Assessment Location B knees Palpation Details Tenderness along medial and lateral knees, patellar tendon Tenderness along R quad Tightness of B quads lumbar spine Palpation Details Tenderness along PSIS/SIJ, R>L , QL/paraspinals No midline tenderness. Tenderness lateral to spinous processes. PT-OP-K Range of Motion Start: 04/20/24 12:58 Freq: Status: Active Protocol: Document 04/20/24 12:58 NM (Rec: 04/20/24 13:49 NM [id number]) Lumbar Spine Range of Motion Lumbar Spine Active Percentage Flexion 75 Extension 50 Rotation Left 100 Rotation Right 100 Lateral Flexion Left 75 Lateral Flexion Right 50 Comments Pain reproduced with flex, B lateral flex Hip Goniometric Range of Motion Hip Right Internal Rotation 10 External Rotation 30 Left Internal Rotation 10 External Rotation 20 Knee Goniometric Range of Motion Knee Right Flexion Active (degrees) 128 Extension Active (degrees) 0 Left Flexion Active (degrees) 130 Extension Active (degrees) 0 PT-OP-L Special Tests Start: 04/20/24 12:58 Freq: Status: Active Protocol: Document 04/20/24 12:58 NM (Rec: 04/20/24 16:11 NM [id number]) Special Tests Lumbar Spine Special Tests Slump Test Results - Comments B Straight Leg Raise Test Results - Comments B Vega/Quadrant Test Results + Comments R PT-OP-M Strength Start: 04/20/24 12:58 Freq: Status: Active Protocol: Document 04/20/24 12:58 NM (Rec: 04/20/24 13:49 NM [id number]) Trunk Strength Trunk Manual Muscle Testing Flexion 3 Fair Extension 3 Fair Rotation Right 4 Good Lateral Flexion Left 4 Good Lateral Flexion Right 4 Good Comments Difficulty stabilizing against resistance Hip Strength Hip Manual Muscle Testing Left Flexion (L2) 4- Good- Extension (S1) 3 Fair Abduction 4- Good- External Rotation 4- Good- Internal Rotation 3 Fair Right Flexion (L2) 4- Good- Extension (S1) 3 Fair Abduction 4- Good- External Rotation 4- Good- Internal Rotation 3 Fair Knee Strength Knee Manual Muscle Testing Right Flexion (S2) 4- Good- Extension (L3) 4- Good- Left Flexion (S2) 4- Good- Extension (L3) 4- Good- Ankle/Foot Strength Ankle and Foot Manual Muscle Testing Right Dorsiflexion (L4) 4- Good- Plantarflexion (S1) 4- Good- Left Dorsiflexion (L4) 4- Good- Plantarflexion (S1) 4- Good- PT-OP-Q Treatments Start: 04/20/24 12:58 Freq: Status: Active Protocol: Document 04/27/24 08:15 NM (Rec: 04/27/24 09:02 NM [id number]) Therapeutic Exercises Supine Exercises TrA activation Supine Exercise Name 1. BKFO, 2. leg ext Side bilateral Resistance AROM Reps/Minutes 1. 2x10 ea, 2. 10 ea (non-alt) Comments cued for form and abdominal drawing up/in Hamstring stretch Supine Exercise Name HEP review: with knee flex/ext Side bilateral Equipment Used pt belt ~ use at home behind knee to assist Reps/Minutes 30 ea (~60 per leg) Comments feels good; cued for form Sidelying Exercises hip abduction Sidelying Exercise Name trialed in PT Side bilateral Reps/Minutes 8 with 2 hold Comments hard; challenging for pt reverse clams Side bilateral Resistance AROM Reps/Minutes 15 with 2 hold Comments challenging; limited ROM clams Sidelying Exercise Name HEP review Side bilateral Resistance AROM Reps/Minutes 15 with 3 hold Comments less trunk rotation; self tactile cues for form Sitting Exercises LAQ Side bilateral Resistance AROM > level 1 band Reps/Minutes 10x3 hold Self-Care/Home Management Treatment Education Patient Education Home Exercise Program,Joint Protection,Safety Other Education 8 minutes- educated using spine models as rationale for not performing repeated trunk flexion for hamstring stretching. 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 but not repeated PT-OP-T Assessment and Plan Start: 04/20/24 12:58 Freq: Status: Active Protocol: Document 04/27/24 08:15 NM (Rec: 04/27/24 09:02 NM [id number]) Physical Therapy Assessment Goals Six Impairment stairs Custodial Goal (LTG) Pt will report no increase in baseline pain or poor trunk stability when performing at least 8 stairs with or without hand rail in order to demonstrate improved activity tolerance, pain management, and QOL LTG Duration 12 weeks Five Impairment balance Short Term Goal (STG) Pt will increase Tinetti score >18/28 in order to move from high fall risk to moderate fall risk during gait and stairs STG Duration 6 weeks Custodial Goal (LTG) Pt will increase Tinetti score >23/28 in order to move from high fall risk to moderate fall risk during gait and stairs LTG Duration 12 weeks Four Impairment strength Short Term Goal (STG) Pt will improve B knee flexion and extension strength to at least 4/5 in order to demonstrate improved stability on stairs and with gait STG Duration 6 weeks Print Controller Goal (LTG) Pt will improve B knee flexion and extension strength to at least 4+/5 in order to demonstrate improved stability on stairs and with gait LTG Duration 12 weeks Three Impairment strength Short Term Goal (STG) Pt will increase B hip extension and abduction strength to at least 4-/5 in order to demonstrate improved hip strength for gait, balance , and to decrease fall risk STG Duration 6 weeks Custodial Goal (LTG) Pt will increase B hip extension and abduction strength to at least 4+/5 in order to demonstrate improved hip strength for gait, balance , and to decrease fall risk LTG Duration 12 weeks Two Impairment STS Short Term Goal (STG) Pt will be able to perform 5x STS without compensation or increase in baseline pain in order to demonstrate improved BLE strength for transfers and gait STG Duration 6 weeks Custodial Goal (LTG) Pt will be able to perform at least 11 sit to medical services coordinator 30 seconds (age related norm) without increase in baseline pain in order to demonstrate improved BLE strength for transfers and gait LTG Duration 12 weeks One Impairment ambulation Short Term Goal (STG) Pt will report that he is able to ambulate community distance with or without LRAD without increase in baseline pain in order to demonstrate improved symptom management and social participation STG Duration 6 weeks Print Controller Goal (LTG) Pt will report that he is able to ambulate any distance with or without LRAD without increase in baseline pain in order to demonstrate improved symptom management and social participation LTG Duration 12 weeks Assessment Summary Assessment Pt tolerated session well. Reviewed HEP for correct form and to progress. Pt demonstrates limited hip IR ROM. He also has weakness of B glutes and hip rotators. Added LAQ to assist with addressing quad strength and hamstirng length. Pt requires increased time to complete activities and moderate cues for correct execution. PT educated pt extensively on not performing repetivive motions including spinal flexion during stretching due to risk of compression fracture and repetitive force on the spine. Pt verbalizes understanding and would benefit from skilled PT for progressive trunk and BLE strengthening in order to improve activity tolerance and symptom management. Physical Therapy Plan Frequency and Duration Frequency of Treatment 2x/Week Duration of treatment (weeks) 12 Plan of Care Start Date 04/20/24 Plan of Care End Date 07/14/24 Therapeutic Interventions Therapeutic Interventions Balance Training,Gait Training ,Home Exercise Program,Joint Mobilizations,Manual Therapy, Neuromuscular Re-education, Orthotic/Prosthetic Management ,Patient/Caregiver Education, Self-Care/Home Management, Sensory Integration,Soft Tissue Mobilization,Taping, Therapeutic Activities, Therapeutic Exercises Modalities Cold Pack/Ice Massage,Hot Packs Other Therapeutic Interventions pelvic realignment manual traction Next Visit Focus/Plan Next Note Type Treatment Note Next Visit Plan monitor vitals during exercise, hx of spondylolisthesis Hip hinge-try sit to stand supine, s/l hip abd, add to HEP, HS stretch, STM as needed to LS and glutes/HS, review hip rotation with reverse/ regular clams, add s/l hip abd vs side steps with hand support, STS training and hip hinge training, progress core and glute strengthening Hamstring stretch, core bracing with flexion bias, hip abd strengthening (trial sidelying or seated vs standing), sit to stand retraining w/o HS assist and band no lumbar vertebral mobilizations
--- NOTE | 2024-05-03 15:34 | PT.OTN ---
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) Weakness (05/03/24) Physical Therapy Treatment Note PT-OP-A Visit Information Start: 04/20/24 12:58 Freq: Status: Active Protocol: Document 05/03/24 13:02 NM (Rec: 05/03/24 13:47 NM [id number]) Out-Patient Physical Therapy Visit Information Visit Information Visit Type Treatment Note Visit Start Time 13:02 Visit Stop Time 13:42 Visit Number 4 Evaluation Information Evaluation Date 04/20/24 PT-OP-B Current Condition Start: 04/20/24 12:58 Freq: Status: Active Protocol: Document 04/20/24 12:58 NM (Rec: 04/20/24 13:49 NM [id number]) Current Condition History of Current Condition Current Complaints pain, mobility, strength, balance History of Current Condition Pt reports back pain and B knee pain. He also has a fat pad in his back. Pain is bilateral and along the spine. Reports he also has R thigh pain, which limits his mobility. He sleeps on his L side primarily but has L shoulder pain too. His back pain is the primary limit for his mobility, no DANIAL but chronic. Has had several injections for pain recently and gets weekly massage, which helps. He reports due to his knees that he has difficulty with walking (speed and distance), transfers from a chair (leg pain and weakness), floor transfer (uses hands), stairs. He has had the R knee replaced. Uses cane for gait but did not bring today. He has fallen 3x times backward when he was standing, so the cane helps keep him from falling backward. He just renovated his home to one story, but still has stairs in his house. 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 Currently, pt does an exercise routine and cardiac rehab 2- 3x/wk, but no other exercise. Wants to go back on family walks again for any distance but has not since before covid Prior Treatments and Tests previous PT at different clinic Treatment Goals Patient/Caregiver Goals walk better, less back pain Prior Functional Status Baseline Function- Recreation/Hobbies exercise routine - 100 toe touches Baseline Function- Other massage 1x/wk Current Functional Impairments (Reported) Functional Limitations- Mobility/Gait unable to participate in family walks Functional Limitations- Recreation/ pain with exercise, toe Hobbies touches row club 3x/wk (does the talking) PT-OP-C Subjective Start: 04/20/24 12:58 Freq: Status: Active Protocol: Document 05/03/24 13:02 NM (Rec: 05/03/24 13:47 NM [id number]) OP-PT Subjective Patient Comments Patient Comments Pt reports that he is having L knee pain, similar to when he needed his other knee replaced; has difficulty with driving due to hip pain. He reports that his back is bothering him less but still present. Pt states that he has been able to get out of bed better since he stopped doing the repetitive toe touches PT-OP-E Functional Tests Start: 04/20/24 12:58 Freq: Status: Active Protocol: Document 04/20/24 12:58 NM (Rec: 04/20/24 13:49 NM [id number]) Functional Tests 30 Second Sit to Stand Test Score 10 Comments feel it in knees, use HS to stabilize, poor eccentric Five Times Sit to Stand Test Score 13 sec Comments use HS to stabilize, poor eccentric Tinetti Balance and Gait Assessment Balance Score 8 Gait Score 7 Composite Score 15/28 Other Forward Trunk Flexion Test Name of Test measured fingers to floor Score 9 Comment reproduces pain, tight hamstrings PT-OP-F Manual Assessment Start: 04/20/24 12:58 Freq: Status: Active Protocol: Document 04/20/24 12:58 NM (Rec: 04/20/24 13:49 NM [id number]) Manual Assessments Soft Tissue Assessment Soft Tissue Mobility Assessment Tight hip flexors bilaterally (+ massimo test), increased tone in paraspinals especially QL. L trunk periscapular and paraspinals are more restricted and elevated than R side Joint Mobility Assessment Joint Mobility Assessment Decreased lumbar spine and hip mobility. Hypomobility with P -A springing of lumbar spine spinous processes (not tender) and PSIS/SIJ (tender) - R>L PT-OP-G Mobility & Gait Start: 04/20/24 12:58 Freq: Status: Active Protocol: Document 04/20/24 12:58 NM (Rec: 04/20/24 16:11 NM [id number]) OP Gait Assessment Gait Gait Assistance Required: Standby Assistance Distance (Feet) 150 Assistive Devices Assistive Device Gait Belt Gait Deviations General Gait Pattern Antalgic,Decreased Feet Clearance,Flexed Trunk Factors Limiting Gait Function Factors Limiting Gait Function Decreased Activity Tolerance, Decreased Sensation,Decreased Strength,Limited Range of Motion,Pain,Poor Balance Comments Gait Comments uses AD normally Stair Climbing Evaluation Evaluation Level of Assist On Stairs Contact Guard Assistance Devices Stair Climbing Assistive Devices Left Railing,Right Railing Technique/Endurance Stair Climbing Direction Ascend and Descend Stair Climbing Technique Step Over Step Number of Steps Climbed 4 Stair Climbing Set # Repetitions (reps) 1 Comments Stair Climbing Comments Poor trunk and knee stability with descent. Reproduces knee pain PT-OP-J Posture/Palpation/Skin Start: 04/20/24 12:58 Freq: Status: Active Protocol: Document 04/20/24 12:58 NM (Rec: 04/20/24 16:11 NM [id number]) Posture Evaluation Position Standing Head/C-Spine Posture Forward Head T-Spine Posture Increased Kyphosis L-Spine Posture Increased Lordosis Shoulder Posture (L) Rounded,(R) Rounded,(L) Forward,(L) Elevated Pelvis Posture Anteriorly Tilted Weight Distribution Balanced Hip Posture (L) Externally Rotated,(R) Externally Rotated Knee Posture (L) Genu Valgus,(R) Genu Valgus Ankle/Foot Posture (L) Pronated,(R) Pronated Palpation Assessment Location B knees Palpation Details Tenderness along medial and lateral knees, patellar tendon Tenderness along R quad Tightness of B quads lumbar spine Palpation Details Tenderness along PSIS/SIJ, R>L , QL/paraspinals No midline tenderness. Tenderness lateral to spinous processes. PT-OP-K Range of Motion Start: 04/20/24 12:58 Freq: Status: Active Protocol: Document 04/20/24 12:58 NM (Rec: 04/20/24 13:49 NM [id number]) Lumbar Spine Range of Motion Lumbar Spine Active Percentage Flexion 75 Extension 50 Rotation Left 100 Rotation Right 100 Lateral Flexion Left 75 Lateral Flexion Right 50 Comments Pain reproduced with flex, B lateral flex Hip Goniometric Range of Motion Hip Right Internal Rotation 10 External Rotation 30 Left Internal Rotation 10 External Rotation 20 Knee Goniometric Range of Motion Knee Right Flexion Active (degrees) 128 Extension Active (degrees) 0 Left Flexion Active (degrees) 130 Extension Active (degrees) 0 PT-OP-L Special Tests Start: 04/20/24 12:58 Freq: Status: Active Protocol: Document 04/20/24 12:58 NM (Rec: 04/20/24 16:11 NM [id number]) Special Tests Lumbar Spine Special Tests Slump Test Results - Comments B Straight Leg Raise Test Results - Comments B Vega/Quadrant Test Results + Comments R PT-OP-M Strength Start: 04/20/24 12:58 Freq: Status: Active Protocol: Document 04/20/24 12:58 NM (Rec: 04/20/24 13:49 NM [id number]) Trunk Strength Trunk Manual Muscle Testing Flexion 3 Fair Extension 3 Fair Rotation Right 4 Good Lateral Flexion Left 4 Good Lateral Flexion Right 4 Good Comments Difficulty stabilizing against resistance Hip Strength Hip Manual Muscle Testing Left Flexion (L2) 4- Good- Extension (S1) 3 Fair Abduction 4- Good- External Rotation 4- Good- Internal Rotation 3 Fair Right Flexion (L2) 4- Good- Extension (S1) 3 Fair Abduction 4- Good- External Rotation 4- Good- Internal Rotation 3 Fair Knee Strength Knee Manual Muscle Testing Right Flexion (S2) 4- Good- Extension (L3) 4- Good- Left Flexion (S2) 4- Good- Extension (L3) 4- Good- Ankle/Foot Strength Ankle and Foot Manual Muscle Testing Right Dorsiflexion (L4) 4- Good- Plantarflexion (S1) 4- Good- Left Dorsiflexion (L4) 4- Good- Plantarflexion (S1) 4- Good- PT-OP-Q Treatments Start: 04/20/24 12:58 Freq: Status: Active Protocol: Document 05/03/24 13:02 NM (Rec: 05/03/24 13:47 NM [id number]) Therapeutic Exercises Sitting Exercises abduction Sitting Exercise Name isometric hold Side bilateral Resistance level 2 band around thighs Reps/Minutes 60 Comments fatiguing but pain free hip IR Side bilateral Resistance AROM Equipment Used foam roller btwn knees Reps/Minutes 10 ea Comments limited ROM robin L hip; feels in hip but denies pain LAQ Side bilateral Resistance level 1 band Reps/Minutes 15 with 5 hold Comments cued TKE; improved form Standing Exercises side steps Side bilateral Resistance level 2 band at thighs Equipment Used 2 hand support on plinth Reps/Minutes 2 minutes Comments cued neutral foot position Therapeutic Activity Therapeutic Activity hip hinge Reps/Minutes 8 minutes total Comments 1. seated hip hinge with self tactile cues for form, 10 ea Cued neutral spine 2. Hip hinge with pool noodle in standing, 10 ea Cued neutral spine, slight scapular retraction, tactile cue for hip hinge 3. hip hinge to continuous pickling line pickler helper foam roller from ground, 10 ea Cued neutral spine, slight scapular retraction, tactile cue for hip hinge sit to stand Reps/Minutes 10, requires increased time Comments With hip hinge. Cued foot placement, eccentric control at end range hip flexion. Less bouncing from chair with hip hinge. Cued neutral spine as well Self-Care/Home Management Treatment Education Patient Education Home Exercise Program Other Education HEP: LAQ, side steps with band ; issued level 1 and level 2 band PT-OP-T Assessment and Plan Start: 04/20/24 12:58 Freq: Status: Active Protocol: Document 05/03/24 13:02 NM (Rec: 05/03/24 13:47 NM [id number]) Physical Therapy Assessment Goals Six Impairment stairs Butting Saw Operator Goal (LTG) Pt will report no increase in baseline pain or poor trunk stability when performing at least 8 stairs with or without hand rail in order to demonstrate improved activity tolerance, pain management, and QOL LTG Duration 12 weeks Five Impairment balance Short Term Goal (STG) Pt will increase Tinetti score >18/28 in order to move from high fall risk to moderate fall risk during gait and stairs STG Duration 6 weeks Butting Saw Operator Goal (LTG) Pt will increase Tinetti score >23/28 in order to move from high fall risk to moderate fall risk during gait and stairs LTG Duration 12 weeks Four Impairment strength Short Term Goal (STG) Pt will improve B knee flexion and extension strength to at least 4/5 in order to demonstrate improved stability on stairs and with gait STG Duration 6 weeks Butting Saw Operator Goal (LTG) Pt will improve B knee flexion and extension strength to at least 4+/5 in order to demonstrate improved stability on stairs and with gait LTG Duration 12 weeks Three Impairment strength Short Term Goal (STG) Pt will increase B hip extension and abduction strength to at least 4-/5 in order to demonstrate improved hip strength for gait, balance , and to decrease fall risk STG Duration 6 weeks Care Home Goal (LTG) Pt will increase B hip extension and abduction strength to at least 4+/5 in order to demonstrate improved hip strength for gait, balance , and to decrease fall risk LTG Duration 12 weeks Two Impairment STS Short Term Goal (STG) Pt will be able to perform 5x STS without compensation or increase in baseline pain in order to demonstrate improved BLE strength for transfers and gait STG Duration 6 weeks Care Home Goal (LTG) Pt will be able to perform at least 11 sit to web marketing assistant 30 seconds (age related norm) without increase in baseline pain in order to demonstrate improved BLE strength for transfers and gait LTG Duration 12 weeks One Impairment ambulation Short Term Goal (STG) Pt will report that he is able to ambulate community distance with or without LRAD without increase in baseline pain in order to demonstrate improved symptom management and social participation STG Duration 6 weeks Butting Saw Operator Goal (LTG) Pt will report that he is able to ambulate any distance with or without LRAD without increase in baseline pain in order to demonstrate improved symptom management and social participation LTG Duration 12 weeks Assessment Summary Assessment Pt tolerated session well, continues to make small progress with therapeutic exercise. Progressed to seated and standing hip/quad strengthening. Added LAQ and side steps to HEP. Pt with good tolerance for side steps with resistance with UE support for balance, cued for neutral position of hips. Trialed hip hinge for sit to stand and body mechanics training. Pt able to perform sit to stand with good form but has difficulty with last eccentric control with lowering. Improved hip hinge with deadlift, able to porgress to picking up to objects from floor. PT would benefit from skilled PT for global trunk and BLE strengthening and body mechanics training in order to improve activity tolerance and symptom management. Physical Therapy Plan Frequency and Duration Frequency of Treatment 2x/Week Duration of treatment (weeks) 12 Plan of Care Start Date 04/20/24 Plan of Care End Date 07/14/24 Therapeutic Interventions Therapeutic Interventions Balance Training,Gait Training ,Home Exercise Program,Joint Mobilizations,Manual Therapy, Neuromuscular Re-education, Orthotic/Prosthetic Management ,Patient/Caregiver Education, Self-Care/Home Management, Sensory Integration,Soft Tissue Mobilization,Taping, Therapeutic Activities, Therapeutic Exercises Modalities Cold Pack/Ice Massage,Hot Packs Other Therapeutic Interventions pelvic realignment manual traction Next Visit Focus/Plan Next Note Type Treatment Note Next Visit Plan monitor vitals during exercise, hx of spondylolisthesis Review: STS with band, hip hinge to continuous pickling line pickler helper objects, side steps with band and hand support, DF, calf stretch, calf raise, trial pallof press no lumbar vertebral mobilizations
--- NOTE | 2024-05-05 13:06 | PT.OTN ---
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) Weakness (05/05/24) Physical Therapy Treatment Note PT-OP-A Visit Information Start: 04/20/24 12:58 Freq: Status: Active Protocol: Document 05/05/24 08:18 NM (Rec: 05/05/24 09:00 NM [id number]) Out-Patient Physical Therapy Visit Information Visit Information Visit Type Treatment Note Visit Start Time 08:18 Visit Stop Time 08:58 Visit Number 5 Evaluation Information Evaluation Date 04/20/24 Precautions Precautions Fall risk, hx of heart attack and triple bypass monitor vitals with activity , fall risk PT-OP-B Current Condition Start: 04/20/24 12:58 Freq: Status: Active Protocol: Document 04/20/24 12:58 NM (Rec: 04/20/24 13:49 NM [id number]) Current Condition History of Current Condition Current Complaints pain, mobility, strength, balance History of Current Condition Pt reports back pain and B knee pain. He also has a fat pad in his back. Pain is bilateral and along the spine. Reports he also has R thigh pain, which limits his mobility. He sleeps on his L side primarily but has L shoulder pain too. His back pain is the primary limit for his mobility, no DANIAL but chronic. Has had several injections for pain recently and gets weekly massage, which helps. He reports due to his knees that he has difficulty with walking (speed and distance), transfers from a chair (leg pain and weakness), floor transfer (uses hands), stairs. He has had the R knee replaced. Uses cane for gait but did not bring today. He has fallen 3x times backward when he was standing, so the cane helps keep him from falling backward. He just renovated his home to one story, but still has stairs in his house. 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 Currently, pt does an exercise routine and cardiac rehab 2- 3x/wk, but no other exercise. Wants to go back on family walks again for any distance but has not since before covid Prior Treatments and Tests previous PT at different clinic Treatment Goals Patient/Caregiver Goals walk better, less back pain Prior Functional Status Baseline Function- Recreation/Hobbies exercise routine - 100 toe touches Baseline Function- Other massage 1x/wk Current Functional Impairments (Reported) Functional Limitations- Mobility/Gait unable to participate in family walks Functional Limitations- Recreation/ pain with exercise, toe Hobbies touches row club 3x/wk (does the talking) PT-OP-C Subjective Start: 04/20/24 12:58 Freq: Status: Active Protocol: Document 05/05/24 08:18 NM (Rec: 05/05/24 09:00 NM [id number]) OP-PT Subjective Patient Comments Patient Comments Pt reports increased soreness after lifting/moving lead balls yesterday. He is having both low back and knee discomfort. States the previous L sided rib pain has completely resolved. Just came from cardiac rehab. Reports fewer shakes as improving with exercises, states improved mobility with mobility (e.g car transfers) PT-OP-E Functional Tests Start: 04/20/24 12:58 Freq: Status: Active Protocol: Document 04/20/24 12:58 NM (Rec: 04/20/24 13:49 NM [id number]) Functional Tests 30 Second Sit to Stand Test Score 10 Comments feel it in knees, use HS to stabilize, poor eccentric Five Times Sit to Stand Test Score 13 sec Comments use HS to stabilize, poor eccentric Tinetti Balance and Gait Assessment Balance Score 8 Gait Score 7 Composite Score 15/28 Other Forward Trunk Flexion Test Name of Test measured fingers to floor Score 9 Comment reproduces pain, tight hamstrings PT-OP-F Manual Assessment Start: 04/20/24 12:58 Freq: Status: Active Protocol: Document 04/20/24 12:58 NM (Rec: 04/20/24 13:49 NM [id number]) Manual Assessments Soft Tissue Assessment Soft Tissue Mobility Assessment Tight hip flexors bilaterally (+ massimo test), increased tone in paraspinals especially QL. L trunk periscapular and paraspinals are more restricted and elevated than R side Joint Mobility Assessment Joint Mobility Assessment Decreased lumbar spine and hip mobility. Hypomobility with P -A springing of lumbar spine spinous processes (not tender) and PSIS/SIJ (tender) - R>L PT-OP-G Mobility & Gait Start: 04/20/24 12:58 Freq: Status: Active Protocol: Document 04/20/24 12:58 NM (Rec: 04/20/24 16:11 NM [id number]) OP Gait Assessment Gait Gait Assistance Required: Standby Assistance Distance (Feet) 150 Assistive Devices Assistive Device Gait Belt Gait Deviations General Gait Pattern Antalgic,Decreased Feet Clearance,Flexed Trunk Factors Limiting Gait Function Factors Limiting Gait Function Decreased Activity Tolerance, Decreased Sensation,Decreased Strength,Limited Range of Motion,Pain,Poor Balance Comments Gait Comments uses AD normally Stair Climbing Evaluation Evaluation Level of Assist On Stairs Contact Guard Assistance Devices Stair Climbing Assistive Devices Left Railing,Right Railing Technique/Endurance Stair Climbing Direction Ascend and Descend Stair Climbing Technique Step Over Step Number of Steps Climbed 4 Stair Climbing Set # Repetitions (reps) 1 Comments Stair Climbing Comments Poor trunk and knee stability with descent. Reproduces knee pain PT-OP-J Posture/Palpation/Skin Start: 04/20/24 12:58 Freq: Status: Active Protocol: Document 04/20/24 12:58 NM (Rec: 04/20/24 16:11 NM [id number]) Posture Evaluation Position Standing Head/C-Spine Posture Forward Head T-Spine Posture Increased Kyphosis L-Spine Posture Increased Lordosis Shoulder Posture (L) Rounded,(R) Rounded,(L) Forward,(L) Elevated Pelvis Posture Anteriorly Tilted Weight Distribution Balanced Hip Posture (L) Externally Rotated,(R) Externally Rotated Knee Posture (L) Genu Valgus,(R) Genu Valgus Ankle/Foot Posture (L) Pronated,(R) Pronated Palpation Assessment Location B knees Palpation Details Tenderness along medial and lateral knees, patellar tendon Tenderness along R quad Tightness of B quads lumbar spine Palpation Details Tenderness along PSIS/SIJ, R>L , QL/paraspinals No midline tenderness. Tenderness lateral to spinous processes. PT-OP-K Range of Motion Start: 04/20/24 12:58 Freq: Status: Active Protocol: Document 04/20/24 12:58 NM (Rec: 04/20/24 13:49 NM [id number]) Lumbar Spine Range of Motion Lumbar Spine Active Percentage Flexion 75 Extension 50 Rotation Left 100 Rotation Right 100 Lateral Flexion Left 75 Lateral Flexion Right 50 Comments Pain reproduced with flex, B lateral flex Hip Goniometric Range of Motion Hip Right Internal Rotation 10 External Rotation 30 Left Internal Rotation 10 External Rotation 20 Knee Goniometric Range of Motion Knee Right Flexion Active (degrees) 128 Extension Active (degrees) 0 Left Flexion Active (degrees) 130 Extension Active (degrees) 0 PT-OP-L Special Tests Start: 04/20/24 12:58 Freq: Status: Active Protocol: Document 04/20/24 12:58 NM (Rec: 04/20/24 16:11 NM [id number]) Special Tests Lumbar Spine Special Tests Slump Test Results - Comments B Straight Leg Raise Test Results - Comments B Vega/Quadrant Test Results + Comments R PT-OP-M Strength Start: 04/20/24 12:58 Freq: Status: Active Protocol: Document 04/20/24 12:58 NM (Rec: 04/20/24 13:49 NM [id number]) Trunk Strength Trunk Manual Muscle Testing Flexion 3 Fair Extension 3 Fair Rotation Right 4 Good Lateral Flexion Left 4 Good Lateral Flexion Right 4 Good Comments Difficulty stabilizing against resistance Hip Strength Hip Manual Muscle Testing Left Flexion (L2) 4- Good- Extension (S1) 3 Fair Abduction 4- Good- External Rotation 4- Good- Internal Rotation 3 Fair Right Flexion (L2) 4- Good- Extension (S1) 3 Fair Abduction 4- Good- External Rotation 4- Good- Internal Rotation 3 Fair Knee Strength Knee Manual Muscle Testing Right Flexion (S2) 4- Good- Extension (L3) 4- Good- Left Flexion (S2) 4- Good- Extension (L3) 4- Good- Ankle/Foot Strength Ankle and Foot Manual Muscle Testing Right Dorsiflexion (L4) 4- Good- Plantarflexion (S1) 4- Good- Left Dorsiflexion (L4) 4- Good- Plantarflexion (S1) 4- Good- PT-OP-Q Treatments Start: 04/20/24 12:58 Freq: Status: Active Protocol: Document 05/05/24 08:18 NM (Rec: 05/05/24 09:00 NM [id number]) Therapeutic Exercises Standing Exercises hip flexor stretch Side bilateral Equipment Used foot elevated on 2nd step Reps/Minutes 1x30 Comments feels in R knee; cued PPT calf raise Side bilateral Equipment Used hand support on stairs Reps/Minutes 20 with 3 up, 1 hold, 3 down calf stretch Standing Exercise Name 1. gastrocnemius, 2. soleus Side bilateral Equipment Used ANGIE Reps/Minutes 1. 1x60 ea, 2. 30 then 3x10 hold mobilization Comments good feedback for stretch hip extension Side bilateral Resistance level 1 band at ankles Equipment Used 2 hand support on ballet bars Reps/Minutes 2x10 ea Comments cued upright trunk posture, wider KUSHAL; pain free hip flexion Standing Exercise Name marching Side bilateral Resistance level 1 band around thighs Equipment Used 2 hand support on ballet bar Reps/Minutes 2x8 ea Comments cued neutral foot position, wider KUSHAL; wow this this good side steps Side bilateral Resistance level 2 band thighs Equipment Used 2 hand support on ballet bar Reps/Minutes 2x20 ft ea direction Comments cued neutral foot position PT-OP-T Assessment and Plan Start: 04/20/24 12:58 Freq: Status: Active Protocol: Document 05/05/24 08:18 NM (Rec: 05/05/24 09:00 NM [id number]) Physical Therapy Assessment Goals Six Impairment stairs Custodial Goal (LTG) Pt will report no increase in baseline pain or poor trunk stability when performing at least 8 stairs with or without hand rail in order to demonstrate improved activity tolerance, pain management, and QOL LTG Duration 12 weeks Five Impairment balance Short Term Goal (STG) Pt will increase Tinetti score >18/28 in order to move from high fall risk to moderate fall risk during gait and stairs STG Duration 6 weeks Dial Screw Assembler Goal (LTG) Pt will increase Tinetti score >23/28 in order to move from high fall risk to moderate fall risk during gait and stairs LTG Duration 12 weeks Four Impairment strength Short Term Goal (STG) Pt will improve B knee flexion and extension strength to at least 4/5 in order to demonstrate improved stability on stairs and with gait STG Duration 6 weeks Custodial Goal (LTG) Pt will improve B knee flexion and extension strength to at least 4+/5 in order to demonstrate improved stability on stairs and with gait LTG Duration 12 weeks Three Impairment strength Short Term Goal (STG) Pt will increase B hip extension and abduction strength to at least 4-/5 in order to demonstrate improved hip strength for gait, balance , and to decrease fall risk STG Duration 6 weeks Custodial Goal (LTG) Pt will increase B hip extension and abduction strength to at least 4+/5 in order to demonstrate improved hip strength for gait, balance , and to decrease fall risk LTG Duration 12 weeks Two Impairment STS Short Term Goal (STG) Pt will be able to perform 5x STS without compensation or increase in baseline pain in order to demonstrate improved BLE strength for transfers and gait STG Duration 6 weeks Custodial Goal (LTG) Pt will be able to perform at least 11 sit to cleaner housekeeping 30 seconds (age related norm) without increase in baseline pain in order to demonstrate improved BLE strength for transfers and gait LTG Duration 12 weeks One Impairment ambulation Short Term Goal (STG) Pt will report that he is able to ambulate community distance with or without LRAD without increase in baseline pain in order to demonstrate improved symptom management and social participation STG Duration 6 weeks Custodial Goal (LTG) Pt will report that he is able to ambulate any distance with or without LRAD without increase in baseline pain in order to demonstrate improved symptom management and social participation LTG Duration 12 weeks Assessment Summary Assessment Pt has good tolerance for standing exercises today, reporting no back or knee pain with activity. Good feedback and appropriate muscle activation with standing global hip strengthening. Cued for form, especially neutral hip/foot positioning and to limit trunk compensations. Initiated standing hip/calf stretches to improve posterior and anterior chain flexibility. Pt would benefit from skilled PT for symptom management, activity tolerance , and improve QOL. Physical Therapy Plan Frequency and Duration Frequency of Treatment 2x/Week Duration of treatment (weeks) 12 Plan of Care Start Date 04/20/24 Plan of Care End Date 07/14/24 Therapeutic Interventions Therapeutic Interventions Balance Training,Gait Training ,Home Exercise Program,Joint Mobilizations,Manual Therapy, Neuromuscular Re-education, Orthotic/Prosthetic Management ,Patient/Caregiver Education, Self-Care/Home Management, Sensory Integration,Soft Tissue Mobilization,Taping, Therapeutic Activities, Therapeutic Exercises Modalities Cold Pack/Ice Massage,Hot Packs Other Therapeutic Interventions pelvic realignment manual traction Next Visit Focus/Plan Next Note Type Treatment Note Next Visit Plan monitor vitals during exercise, hx of spondylolisthesis Standing january (add to HEP if diann well), standing hip strength and stretches, trial 4 step up with support, address push up (pt's personal exercise program), address goals Review: STS with band, 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
--- NOTE | 2024-05-09 12:56 | PT.OTN ---
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) Weakness (05/09/24) Physical Therapy Treatment Note PT-OP-A Visit Information Start: 04/20/24 12:58 Freq: Status: Active Protocol: Document 05/09/24 08:07 AB (Rec: 05/09/24 12:55 AB [id number]) Out-Patient Physical Therapy Visit Information Visit Information Visit Type Treatment Note Visit Note [email or web address] Access Code: [email or web address] Visit Start Time 08:18 Visit Stop Time 09:01 Visit Number 6 Number of COMPUTER TESTER Visits 1 Evaluation Information Evaluation Date 04/20/24 Precautions Precautions Fall risk, hx of heart attack and triple bypass monitor vitals with activity , fall risk PT-OP-B Current Condition Start: 04/20/24 12:58 Freq: Status: Active Protocol: Document 04/20/24 12:58 NM (Rec: 04/20/24 13:49 NM [id number]) Current Condition History of Current Condition Current Complaints pain, mobility, strength, balance History of Current Condition Pt reports back pain and B knee pain. He also has a fat pad in his back. Pain is bilateral and along the spine. Reports he also has R thigh pain, which limits his mobility. He sleeps on his L side primarily but has L shoulder pain too. His back pain is the primary limit for his mobility, no DANIAL but chronic. Has had several injections for pain recently and gets weekly massage, which helps. He reports due to his knees that he has difficulty with walking (speed and distance), transfers from a chair (leg pain and weakness), floor transfer (uses hands), stairs. He has had the R knee replaced. Uses cane for gait but did not bring today. He has fallen 3x times backward when he was standing, so the cane helps keep him from falling backward. He just renovated his home to one story, but still has stairs in his house. 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 Currently, pt does an exercise routine and cardiac rehab 2- 3x/wk, but no other exercise. Wants to go back on family walks again for any distance but has not since before felicita Prior Treatments and Tests previous PT at different clinic Treatment Goals Patient/Caregiver Goals walk better, less back pain Prior Functional Status Baseline Function- Recreation/Hobbies exercise routine - 100 toe touches Baseline Function- Other massage 1x/wk Current Functional Impairments (Reported) Functional Limitations- Mobility/Gait unable to participate in family walks Functional Limitations- Recreation/ pain with exercise, toe Hobbies touches row club 3x/wk (does the talking) PT-OP-C Subjective Start: 04/20/24 12:58 Freq: Status: Active Protocol: Document 05/09/24 08:07 AB (Rec: 05/09/24 12:55 AB [id number]) OP-PT Subjective Patient Comments Patient Comments Patient reports he had a bad weekend, was turning his head to scan for traffic and had sharp pain right UE/gestures to neck also, all weekend, was unable to perform HEP. BP left UE start of session seated 167/86 HR 53, Patient comments he has been fighting high BP, comments he did his side stepping and push ups this morning. Seated BP 167/86 HR 53 left UE start of session, reports feeling fine, no symptoms. sit to supine with a reverse sit up with rotation start of session. PT-OP-E Functional Tests Start: 04/20/24 12:58 Freq: Status: Active Protocol: Document 04/20/24 12:58 NM (Rec: 04/20/24 13:49 NM [id number]) Functional Tests 30 Second Sit to Stand Test Score 10 Comments feel it in knees, use HS to stabilize, poor eccentric Five Times Sit to Stand Test Score 13 sec Comments use HS to stabilize, poor eccentric Tinetti Balance and Gait Assessment Balance Score 8 Gait Score 7 Composite Score 15/28 Other Forward Trunk Flexion Test Name of Test measured fingers to floor Score 9 Comment reproduces pain, tight hamstrings PT-OP-F Manual Assessment Start: 04/20/24 12:58 Freq: Status: Active Protocol: Document 04/20/24 12:58 NM (Rec: 04/20/24 13:49 NM [id number]) Manual Assessments Soft Tissue Assessment Soft Tissue Mobility Assessment Tight hip flexors bilaterally (+ massimo test), increased tone in paraspinals especially QL. L trunk periscapular and paraspinals are more restricted and elevated than R side Joint Mobility Assessment Joint Mobility Assessment Decreased lumbar spine and hip mobility. Hypomobility with P -A springing of lumbar spine spinous processes (not tender) and PSIS/SIJ (tender) - R>L PT-OP-G Mobility & Gait Start: 04/20/24 12:58 Freq: Status: Active Protocol: Document 04/20/24 12:58 NM (Rec: 04/20/24 16:11 NM [id number]) OP Gait Assessment Gait Gait Assistance Required: Standby Assistance Distance (Feet) 150 Assistive Devices Assistive Device Gait Belt Gait Deviations General Gait Pattern Antalgic,Decreased Feet Clearance,Flexed Trunk Factors Limiting Gait Function Factors Limiting Gait Function Decreased Activity Tolerance, Decreased Sensation,Decreased Strength,Limited Range of Motion,Pain,Poor Balance Comments Gait Comments uses AD normally Stair Climbing Evaluation Evaluation Level of Assist On Stairs Contact Guard Assistance Devices Stair Climbing Assistive Devices Left Railing,Right Railing Technique/Endurance Stair Climbing Direction Ascend and Descend Stair Climbing Technique Step Over Step Number of Steps Climbed 4 Stair Climbing Set # Repetitions (reps) 1 Comments Stair Climbing Comments Poor trunk and knee stability with descent. Reproduces knee pain PT-OP-J Posture/Palpation/Skin Start: 04/20/24 12:58 Freq: Status: Active Protocol: Document 04/20/24 12:58 NM (Rec: 04/20/24 16:11 NM [id number]) Posture Evaluation Position Standing Head/C-Spine Posture Forward Head T-Spine Posture Increased Kyphosis L-Spine Posture Increased Lordosis Shoulder Posture (L) Rounded,(R) Rounded,(L) Forward,(L) Elevated Pelvis Posture Anteriorly Tilted Weight Distribution Balanced Hip Posture (L) Externally Rotated,(R) Externally Rotated Knee Posture (L) Genu Valgus,(R) Genu Valgus Ankle/Foot Posture (L) Pronated,(R) Pronated Palpation Assessment Location B knees Palpation Details Tenderness along medial and lateral knees, patellar tendon Tenderness along R quad Tightness of B quads lumbar spine Palpation Details Tenderness along PSIS/SIJ, R>L , QL/paraspinals No midline tenderness. Tenderness lateral to spinous processes. PT-OP-K Range of Motion Start: 04/20/24 12:58 Freq: Status: Active Protocol: Document 04/20/24 12:58 NM (Rec: 04/20/24 13:49 NM [id number]) Lumbar Spine Range of Motion Lumbar Spine Active Percentage Flexion 75 Extension 50 Rotation Left 100 Rotation Right 100 Lateral Flexion Left 75 Lateral Flexion Right 50 Comments Pain reproduced with flex, B lateral flex Hip Goniometric Range of Motion Hip Right Internal Rotation 10 External Rotation 30 Left Internal Rotation 10 External Rotation 20 Knee Goniometric Range of Motion Knee Right Flexion Active (degrees) 128 Extension Active (degrees) 0 Left Flexion Active (degrees) 130 Extension Active (degrees) 0 PT-OP-L Special Tests Start: 04/20/24 12:58 Freq: Status: Active Protocol: Document 04/20/24 12:58 NM (Rec: 04/20/24 16:11 NM [id number]) Special Tests Lumbar Spine Special Tests Slump Test Results - Comments B Straight Leg Raise Test Results - Comments B Vega/Quadrant Test Results + Comments R PT-OP-M Strength Start: 04/20/24 12:58 Freq: Status: Active Protocol: Document 04/20/24 12:58 NM (Rec: 04/20/24 13:49 NM [id number]) Trunk Strength Trunk Manual Muscle Testing Flexion 3 Fair Extension 3 Fair Rotation Right 4 Good Lateral Flexion Left 4 Good Lateral Flexion Right 4 Good Comments Difficulty stabilizing against resistance Hip Strength Hip Manual Muscle Testing Left Flexion (L2) 4- Good- Extension (S1) 3 Fair Abduction 4- Good- External Rotation 4- Good- Internal Rotation 3 Fair Right Flexion (L2) 4- Good- Extension (S1) 3 Fair Abduction 4- Good- External Rotation 4- Good- Internal Rotation 3 Fair Knee Strength Knee Manual Muscle Testing Right Flexion (S2) 4- Good- Extension (L3) 4- Good- Left Flexion (S2) 4- Good- Extension (L3) 4- Good- Ankle/Foot Strength Ankle and Foot Manual Muscle Testing Right Dorsiflexion (L4) 4- Good- Plantarflexion (S1) 4- Good- Left Dorsiflexion (L4) 4- Good- Plantarflexion (S1) 4- Good- PT-OP-Q Treatments Start: 04/20/24 12:58 Freq: Status: Active Protocol: Document 05/09/24 08:07 AB (Rec: 05/09/24 12:55 AB [id number]) Therapeutic Exercises Supine Exercises modified Trae stretch Side right Reps/Minutes one minute X2 Comments verbal cues figure 4/pirifomis Supine Exercise Name from hooklying HEP Side right Reps/Minutes 60 sec X 1 each ex Comments verbal and tactile cues Hamstring stretch Supine Exercise Name HEP review: with knee flex/ext Side bilateral Equipment Used towel to hold LE Reps/Minutes 30 ea (~60 per leg) Therapeutic Activity Therapeutic Activity supine to and from sit Reps/Minutes multiple trials left and right side Comments Verbal cues to roll to side then push up from sidelying to sitting immediately after legs are pushed off mat. Verbal cues to scoot back in sitting until back of knees touch mat prior to transfer from sitting to sidelying Manual Therapy Treatment Soft Tissue Mobilization glutes/piriformis/HS/calves Body Location right glute/piriformis Mobilization Type Cross-Friction,Rolling Intensity/Depth Moderate Body Position Sidelying lumbar paraspinals Body Location right and quadratus Mobilization Type Cross-Friction,Rolling, Sustained Pressure Intensity/Depth Moderate Body Position Sidelying Comments Avoiding lower ribs. Lumbar paraspinals and QL, no tenderness. Reports good feedback to soft tissue mobilization Manual Techniques MET for right AI left PI Type for AI PI and pubic shotgun Reps/Duration 6 seconds X 6 for each PT-OP-T Assessment and Plan Start: 04/20/24 12:58 Freq: Status: Active Protocol: Document 05/09/24 08:07 AB (Rec: 05/09/24 12:55 AB [id number]) Physical Therapy Assessment Goals Six Impairment stairs [facility] Goal (LTG) Pt will report no increase in baseline pain or poor trunk stability when performing at least 8 stairs with or without hand rail in order to demonstrate improved activity tolerance, pain management, and QOL LTG Duration 12 weeks Five Impairment balance Short Term Goal (STG) Pt will increase Tinetti score >18/28 in order to move from high fall risk to moderate fall risk during gait and stairs STG Duration 6 weeks [facility] Goal (LTG) Pt will increase Tinetti score >23/28 in order to move from high fall risk to moderate fall risk during gait and stairs LTG Duration 12 weeks Four Impairment strength Short Term Goal (STG) Pt will improve B knee flexion and extension strength to at least 4/5 in order to demonstrate improved stability on stairs and with gait STG Duration 6 weeks [facility] Goal (LTG) Pt will improve B knee flexion and extension strength to at least 4+/5 in order to demonstrate improved stability on stairs and with gait LTG Duration 12 weeks Three Impairment strength Short Term Goal (STG) Pt will increase B hip extension and abduction strength to at least 4-/5 in order to demonstrate improved hip strength for gait, balance , and to decrease fall risk STG Duration 6 weeks [facility] Goal (LTG) Pt will increase B hip extension and abduction strength to at least 4+/5 in order to demonstrate improved hip strength for gait, balance , and to decrease fall risk LTG Duration 12 weeks Two Impairment STS Short Term Goal (STG) Pt will be able to perform 5x STS without compensation or increase in baseline pain in order to demonstrate improved BLE strength for transfers and gait STG Duration 6 weeks [facility] Goal (LTG) Pt will be able to perform at least 11 sit to business systems analyst 30 seconds (age related norm) without increase in baseline pain in order to demonstrate improved BLE strength for transfers and gait LTG Duration 12 weeks One Impairment ambulation Short Term Goal (STG) Pt will report that he is able to ambulate community distance with or without LRAD without increase in baseline pain in order to demonstrate improved symptom management and social participation STG Duration 6 weeks Linter Drier Operator Goal (LTG) Pt will report that he is able to ambulate any distance with or without LRAD without increase in baseline pain in order to demonstrate improved symptom management and social participation LTG Duration 12 weeks Assessment Summary Assessment Patient reports feeling like he is limping less end of session. Good return demonstration for normal movement pattern for supine to sit post training. Physical Therapy Plan Frequency and Duration Frequency of Treatment 2x/Week Duration of treatment (weeks) 12 Plan of Care Start Date 04/20/24 Plan of Care End Date 07/14/24 Next Visit Focus/Plan Next Note Type Treatment Note Next Visit Plan monitor vitals during exercise, hx of spondylolisthesis Standing march (add to HEP if diann well), standing hip strength and stretches, trial 4 step up with support, address push up (pt's personal exercise program), address goals Review: STS with band, hip hinge to [employer] objects, side steps with band and hand support, DF, calf stretch, calf raise, trial pallof press no lumbar vertebral mobilizations
--- NOTE | 2024-05-17 16:57 | PT.OTN ---
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) Weakness (05/17/24) Physical Therapy Treatment Note PT-OP-A Visit Information Start: 04/20/24 12:58 Freq: Status: Active Protocol: Document 05/17/24 14:36 AB (Rec: 05/17/24 15:21 AB [id number]) Out-Patient Physical Therapy Visit Information Visit Information Visit Type Treatment Note Visit Note [email or web address] Access Code: [email or web address] Visit Start Time 14:36 Visit Stop Time 15:20 Visit Number 7 Number of MEDICAL VOUCHER CLERK Visits 1 Evaluation Information Evaluation Date 04/20/24 Precautions Precautions Fall risk, hx of heart attack and triple bypass monitor vitals with activity , fall risk PT-OP-B Current Condition Start: 04/20/24 12:58 Freq: Status: Active Protocol: Document 04/20/24 12:58 NM (Rec: 04/20/24 13:49 NM [id number]) Current Condition History of Current Condition Current Complaints pain, mobility, strength, balance History of Current Condition Pt reports back pain and B knee pain. He also has a fat pad in his back. Pain is bilateral and along the spine. Reports he also has R thigh pain, which limits his mobility. He sleeps on his L side primarily but has L shoulder pain too. His back pain is the primary limit for his mobility, no DANIAL but chronic. Has had several injections for pain recently and gets weekly massage, which helps. He reports due to his knees that he has difficulty with walking (speed and distance), transfers from a chair (leg pain and weakness), floor transfer (uses hands), stairs. He has had the R knee replaced. Uses cane for gait but did not bring today. He has fallen 3x times backward when he was standing, so the cane helps keep him from falling backward. He just renovated his home to one story, but still has stairs in his house. 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 Currently, pt does an exercise routine and cardiac rehab 2- 3x/wk, but no other exercise. Wants to go back on family walks again for any distance but has not since before felicita Prior Treatments and Tests previous PT at different clinic Treatment Goals Patient/Caregiver Goals walk better, less back pain Prior Functional Status Baseline Function- Recreation/Hobbies exercise routine - 100 toe touches Baseline Function- Other massage 1x/wk Current Functional Impairments (Reported) Functional Limitations- Mobility/Gait unable to participate in family walks Functional Limitations- Recreation/ pain with exercise, toe Hobbies touches row club 3x/wk (does the talking) PT-OP-C Subjective Start: 04/20/24 12:58 Freq: Status: Active Protocol: Document 05/17/24 14:36 AB (Rec: 05/17/24 15:21 AB [id number]) OP-PT Subjective Patient Comments Patient Comments Patient reports he is confused , is not feeling the piriformis stretch.Patient reports last time when he got home he felt pretty good. PT-OP-E Functional Tests Start: 04/20/24 12:58 Freq: Status: Active Protocol: Document 04/20/24 12:58 NM (Rec: 04/20/24 13:49 NM [id number]) Functional Tests 30 Second Sit to Stand Test Score 10 Comments feel it in knees, use HS to stabilize, poor eccentric Five Times Sit to Stand Test Score 13 sec Comments use HS to stabilize, poor eccentric Tinetti Balance and Gait Assessment Balance Score 8 Gait Score 7 Composite Score 15/28 Other Forward Trunk Flexion Test Name of Test measured fingers to floor Score 9 Comment reproduces pain, tight hamstrings PT-OP-F Manual Assessment Start: 04/20/24 12:58 Freq: Status: Active Protocol: Document 04/20/24 12:58 NM (Rec: 04/20/24 13:49 NM [id number]) Manual Assessments Soft Tissue Assessment Soft Tissue Mobility Assessment Tight hip flexors bilaterally (+ massimo test), increased tone in paraspinals especially QL. L trunk periscapular and paraspinals are more restricted and elevated than R side Joint Mobility Assessment Joint Mobility Assessment Decreased lumbar spine and hip mobility. Hypomobility with P -A springing of lumbar spine spinous processes (not tender) and PSIS/SIJ (tender) - R>L PT-OP-G Mobility & Gait Start: 04/20/24 12:58 Freq: Status: Active Protocol: Document 04/20/24 12:58 NM (Rec: 04/20/24 16:11 NM [id number]) OP Gait Assessment Gait Gait Assistance Required: Standby Assistance Distance (Feet) 150 Assistive Devices Assistive Device Gait Belt Gait Deviations General Gait Pattern Antalgic,Decreased Feet Clearance,Flexed Trunk Factors Limiting Gait Function Factors Limiting Gait Function Decreased Activity Tolerance, Decreased Sensation,Decreased Strength,Limited Range of Motion,Pain,Poor Balance Comments Gait Comments uses AD normally Stair Climbing Evaluation Evaluation Level of Assist On Stairs Contact Guard Assistance Devices Stair Climbing Assistive Devices Left Railing,Right Railing Technique/Endurance Stair Climbing Direction Ascend and Descend Stair Climbing Technique Step Over Step Number of Steps Climbed 4 Stair Climbing Set # Repetitions (reps) 1 Comments Stair Climbing Comments Poor trunk and knee stability with descent. Reproduces knee pain PT-OP-J Posture/Palpation/Skin Start: 04/20/24 12:58 Freq: Status: Active Protocol: Document 04/20/24 12:58 NM (Rec: 04/20/24 16:11 NM [id number]) Posture Evaluation Position Standing Head/C-Spine Posture Forward Head T-Spine Posture Increased Kyphosis L-Spine Posture Increased Lordosis Shoulder Posture (L) Rounded,(R) Rounded,(L) Forward,(L) Elevated Pelvis Posture Anteriorly Tilted Weight Distribution Balanced Hip Posture (L) Externally Rotated,(R) Externally Rotated Knee Posture (L) Genu Valgus,(R) Genu Valgus Ankle/Foot Posture (L) Pronated,(R) Pronated Palpation Assessment Location B knees Palpation Details Tenderness along medial and lateral knees, patellar tendon Tenderness along R quad Tightness of B quads lumbar spine Palpation Details Tenderness along PSIS/SIJ, R>L , QL/paraspinals No midline tenderness. Tenderness lateral to spinous processes. PT-OP-K Range of Motion Start: 04/20/24 12:58 Freq: Status: Active Protocol: Document 04/20/24 12:58 NM (Rec: 04/20/24 13:49 NM [id number]) Lumbar Spine Range of Motion Lumbar Spine Active Percentage Flexion 75 Extension 50 Rotation Left 100 Rotation Right 100 Lateral Flexion Left 75 Lateral Flexion Right 50 Comments Pain reproduced with flex, B lateral flex Hip Goniometric Range of Motion Hip Right Internal Rotation 10 External Rotation 30 Left Internal Rotation 10 External Rotation 20 Knee Goniometric Range of Motion Knee Right Flexion Active (degrees) 128 Extension Active (degrees) 0 Left Flexion Active (degrees) 130 Extension Active (degrees) 0 PT-OP-L Special Tests Start: 04/20/24 12:58 Freq: Status: Active Protocol: Document 04/20/24 12:58 NM (Rec: 04/20/24 16:11 NM [id number]) Special Tests Lumbar Spine Special Tests Slump Test Results - Comments B Straight Leg Raise Test Results - Comments B Vega/Quadrant Test Results + Comments R PT-OP-M Strength Start: 04/20/24 12:58 Freq: Status: Active Protocol: Document 04/20/24 12:58 NM (Rec: 04/20/24 13:49 NM [id number]) Trunk Strength Trunk Manual Muscle Testing Flexion 3 Fair Extension 3 Fair Rotation Right 4 Good Lateral Flexion Left 4 Good Lateral Flexion Right 4 Good Comments Difficulty stabilizing against resistance Hip Strength Hip Manual Muscle Testing Left Flexion (L2) 4- Good- Extension (S1) 3 Fair Abduction 4- Good- External Rotation 4- Good- Internal Rotation 3 Fair Right Flexion (L2) 4- Good- Extension (S1) 3 Fair Abduction 4- Good- External Rotation 4- Good- Internal Rotation 3 Fair Knee Strength Knee Manual Muscle Testing Right Flexion (S2) 4- Good- Extension (L3) 4- Good- Left Flexion (S2) 4- Good- Extension (L3) 4- Good- Ankle/Foot Strength Ankle and Foot Manual Muscle Testing Right Dorsiflexion (L4) 4- Good- Plantarflexion (S1) 4- Good- Left Dorsiflexion (L4) 4- Good- Plantarflexion (S1) 4- Good- PT-OP-Q Treatments Start: 04/20/24 12:58 Freq: Status: Active Protocol: Document 05/17/24 14:36 AB (Rec: 05/17/24 15:21 AB [id number]) Therapeutic Exercises Supine Exercises figure 4/pirifomis Supine Exercise Name Patient initiates seated this session second trial in hooklying Side bilateral Reps/Minutes 60 sec X 2 each ex each LE Comments verbal and tactile cues Sitting Exercises abduction Sitting Exercise Name isometric hold Side bilateral Resistance level 2 band around thighs Reps/Minutes 60 Comments fatiguing but pain free Therapeutic Activity Therapeutic Activity stairs Reps/Minutes 4 six inch steps X 3, 6 4 inch steps X 1 Comments Patient ed with visual demonstration and patient rationale descending stairs with less quad dominant pattern, VC to perform with less quad dom pattern descending and to activate gluteal muscles when ascending . sit to stand Name HEP from 20 inch seat height Reps/Minutes X10 Comments Pt ed use of self tactile cues for hip hinge. Manual Therapy Treatment Soft Tissue Mobilization right hip flexor at groin Mobilization Type Cross-Friction Intensity/Depth Moderate Body Position Hooklying Comments monitored for pain glutes/piriformis/HS/calves Body Location right glute/piriformis Mobilization Type Cross-Friction,Rolling Intensity/Depth Moderate Body Position Sidelying lumbar paraspinals Body Location right Mobilization Type Cross-Friction,Rolling, Sustained Pressure Intensity/Depth Moderate Body Position Sidelying PT-OP-T Assessment and Plan Start: 04/20/24 12:58 Freq: Status: Active Protocol: Document 05/17/24 14:36 AB (Rec: 05/17/24 15:21 AB [id number]) Physical Therapy Assessment Goals Six Impairment stairs Building Economist Goal (LTG) Pt will report no increase in baseline pain or poor trunk stability when performing at least 8 stairs with or without hand rail in order to demonstrate improved activity tolerance, pain management, and QOL LTG Duration 12 weeks Five Impairment balance Short Term Goal (STG) Pt will increase Tinetti score >18/28 in order to move from high fall risk to moderate fall risk during gait and stairs STG Duration 6 weeks Building Economist Goal (LTG) Pt will increase Tinetti score >23/28 in order to move from high fall risk to moderate fall risk during gait and stairs LTG Duration 12 weeks Four Impairment strength Short Term Goal (STG) Pt will improve B knee flexion and extension strength to at least 4/5 in order to demonstrate improved stability on stairs and with gait STG Duration 6 weeks Retirement Goal (LTG) Pt will improve B knee flexion and extension strength to at least 4+/5 in order to demonstrate improved stability on stairs and with gait LTG Duration 12 weeks Three Impairment strength Short Term Goal (STG) Pt will increase B hip extension and abduction strength to at least 4-/5 in order to demonstrate improved hip strength for gait, balance , and to decrease fall risk STG Duration 6 weeks Building Economist Goal (LTG) Pt will increase B hip extension and abduction strength to at least 4+/5 in order to demonstrate improved hip strength for gait, balance , and to decrease fall risk LTG Duration 12 weeks Two Impairment STS Short Term Goal (STG) Pt will be able to perform 5x STS without compensation or increase in baseline pain in order to demonstrate improved BLE strength for transfers and gait STG Duration 6 weeks Retirement Goal (LTG) Pt will be able to perform at least 11 sit to trading manager 30 seconds (age related norm) without increase in baseline pain in order to demonstrate improved BLE strength for transfers and gait LTG Duration 12 weeks One Impairment ambulation Short Term Goal (STG) Pt will report that he is able to ambulate community distance with or without LRAD without increase in baseline pain in order to demonstrate improved symptom management and social participation STG Duration 6 weeks Retirement Goal (LTG) Pt will report that he is able to ambulate any distance with or without LRAD without increase in baseline pain in order to demonstrate improved symptom management and social participation LTG Duration 12 weeks Assessment Summary Assessment BP post manual therapy and stretches seated right UE 139/ 71 HR 47. Good return demonstration for descending stairs with a less quad dominant pattern, and reports of decreased pain, but not eliminated. Physical Therapy Plan Frequency and Duration Frequency of Treatment 2x/Week Duration of treatment (weeks) 12 Plan of Care Start Date 04/20/24 Plan of Care End Date 07/14/24 Therapeutic Interventions Therapeutic Interventions Balance Training,Gait Training ,Home Exercise Program,Joint Mobilizations,Manual Therapy, Neuromuscular Re-education, Orthotic/Prosthetic Management ,Patient/Caregiver Education, Self-Care/Home Management, Sensory Integration,Soft Tissue Mobilization,Taping, Therapeutic Activities, Therapeutic Exercises Modalities Cold Pack/Ice Massage,Hot Packs Other Therapeutic Interventions pelvic realignment manual traction Next Visit Focus/Plan Next Note Type Treatment Note Next Visit Plan monitor vitals during exercise, hx of spondylolisthesis next session focus on balance and HEP exercises to address balance as able. Standing january (add to HEP if diann well), standing hip strength and stretches, trial 4 step up with support, address push up (pt's personal exercise program), address goals Review: STS with band, hip hinge to cloth picker objects, side steps with band and hand support, DF, calf stretch, calf raise, trial pallof press no lumbar vertebral mobilizations
--- NOTE | 2024-05-19 12:57 | PT.OTN ---
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) Weakness (05/19/24) Physical Therapy Treatment Note PT-OP-A Visit Information Start: 04/20/24 12:58 Freq: Status: Active Protocol: Document 05/19/24 08:01 AB (Rec: 05/19/24 10:19 AB [id number]) Out-Patient Physical Therapy Visit Information Visit Information Visit Type Treatment Note Visit Note [email or web address] Access Code: [email or web address] Visit Start Time 08:17 Visit Stop Time 09:01 Visit Number 8 Number of [employer] SPECIALIST Visits 1 Evaluation Information Evaluation Date 04/20/24 Precautions Precautions Fall risk, hx of heart attack and triple bypass monitor vitals with activity , fall risk PT-OP-B Current Condition Start: 04/20/24 12:58 Freq: Status: Active Protocol: Document 04/20/24 12:58 NM (Rec: 04/20/24 13:49 NM [id number]) Current Condition History of Current Condition Current Complaints pain, mobility, strength, balance History of Current Condition Pt reports back pain and B knee pain. He also has a fat pad in his back. Pain is bilateral and along the spine. Reports he also has R thigh pain, which limits his mobility. He sleeps on his L side primarily but has L shoulder pain too. His back pain is the primary limit for his mobility, no DANIAL but chronic. Has had several injections for pain recently and gets weekly massage, which helps. He reports due to his knees that he has difficulty with walking (speed and distance), transfers from a chair (leg pain and weakness), floor transfer (uses hands), stairs. He has had the R knee replaced. Uses cane for gait but did not bring today. He has fallen 3x times backward when he was standing, so the cane helps keep him from falling backward. He just renovated his home to one story, but still has stairs in his house. 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 Currently, pt does an exercise routine and cardiac rehab 2- 3x/wk, but no other exercise. Wants to go back on family walks again for any distance but has not since before felicita Prior Treatments and Tests previous PT at different clinic Treatment Goals Patient/Caregiver Goals walk better, less back pain Prior Functional Status Baseline Function- Recreation/Hobbies exercise routine - 100 toe touches Baseline Function- Other massage 1x/wk Current Functional Impairments (Reported) Functional Limitations- Mobility/Gait unable to participate in family walks Functional Limitations- Recreation/ pain with exercise, toe Hobbies touches row club 3x/wk (does the talking) PT-OP-C Subjective Start: 04/20/24 12:58 Freq: Status: Active Protocol: Document 05/19/24 08:01 AB (Rec: 05/19/24 10:19 AB [id number]) OP-PT Subjective Patient Comments Patient Comments Patient reports right groin area is painful. Patient performing LAQ with band in waiting area. Patient reports having left shoulder pain, unable to ascertain cause. PT-OP-E Functional Tests Start: 04/20/24 12:58 Freq: Status: Active Protocol: Document 04/20/24 12:58 NM (Rec: 04/20/24 13:49 NM [id number]) Functional Tests 30 Second Sit to Stand Test Score 10 Comments feel it in knees, use HS to stabilize, poor eccentric Five Times Sit to Stand Test Score 13 sec Comments use HS to stabilize, poor eccentric Tinetti Balance and Gait Assessment Balance Score 8 Gait Score 7 Composite Score 15/28 Other Forward Trunk Flexion Test Name of Test measured fingers to floor Score 9 Comment reproduces pain, tight hamstrings PT-OP-F Manual Assessment Start: 04/20/24 12:58 Freq: Status: Active Protocol: Document 04/20/24 12:58 NM (Rec: 04/20/24 13:49 NM [id number]) Manual Assessments Soft Tissue Assessment Soft Tissue Mobility Assessment Tight hip flexors bilaterally (+ massimo test), increased tone in paraspinals especially QL. L trunk periscapular and paraspinals are more restricted and elevated than R side Joint Mobility Assessment Joint Mobility Assessment Decreased lumbar spine and hip mobility. Hypomobility with P -A springing of lumbar spine spinous processes (not tender) and PSIS/SIJ (tender) - R>L PT-OP-G Mobility & Gait Start: 04/20/24 12:58 Freq: Status: Active Protocol: Document 04/20/24 12:58 NM (Rec: 04/20/24 16:11 NM [id number]) OP Gait Assessment Gait Gait Assistance Required: Standby Assistance Distance (Feet) 150 Assistive Devices Assistive Device Gait Belt Gait Deviations General Gait Pattern Antalgic,Decreased Feet Clearance,Flexed Trunk Factors Limiting Gait Function Factors Limiting Gait Function Decreased Activity Tolerance, Decreased Sensation,Decreased Strength,Limited Range of Motion,Pain,Poor Balance Comments Gait Comments uses AD normally Stair Climbing Evaluation Evaluation Level of Assist On Stairs Contact Guard Assistance Devices Stair Climbing Assistive Devices Left Railing,Right Railing Technique/Endurance Stair Climbing Direction Ascend and Descend Stair Climbing Technique Step Over Step Number of Steps Climbed 4 Stair Climbing Set # Repetitions (reps) 1 Comments Stair Climbing Comments Poor trunk and knee stability with descent. Reproduces knee pain PT-OP-J Posture/Palpation/Skin Start: 04/20/24 12:58 Freq: Status: Active Protocol: Document 04/20/24 12:58 NM (Rec: 04/20/24 16:11 NM [id number]) Posture Evaluation Position Standing Head/C-Spine Posture Forward Head T-Spine Posture Increased Kyphosis L-Spine Posture Increased Lordosis Shoulder Posture (L) Rounded,(R) Rounded,(L) Forward,(L) Elevated Pelvis Posture Anteriorly Tilted Weight Distribution Balanced Hip Posture (L) Externally Rotated,(R) Externally Rotated Knee Posture (L) Genu Valgus,(R) Genu Valgus Ankle/Foot Posture (L) Pronated,(R) Pronated Palpation Assessment Location B knees Palpation Details Tenderness along medial and lateral knees, patellar tendon Tenderness along R quad Tightness of B quads lumbar spine Palpation Details Tenderness along PSIS/SIJ, R>L , QL/paraspinals No midline tenderness. Tenderness lateral to spinous processes. PT-OP-K Range of Motion Start: 04/20/24 12:58 Freq: Status: Active Protocol: Document 04/20/24 12:58 NM (Rec: 04/20/24 13:49 NM [id number]) Lumbar Spine Range of Motion Lumbar Spine Active Percentage Flexion 75 Extension 50 Rotation Left 100 Rotation Right 100 Lateral Flexion Left 75 Lateral Flexion Right 50 Comments Pain reproduced with flex, B lateral flex Hip Goniometric Range of Motion Hip Right Internal Rotation 10 External Rotation 30 Left Internal Rotation 10 External Rotation 20 Knee Goniometric Range of Motion Knee Right Flexion Active (degrees) 128 Extension Active (degrees) 0 Left Flexion Active (degrees) 130 Extension Active (degrees) 0 PT-OP-L Special Tests Start: 04/20/24 12:58 Freq: Status: Active Protocol: Document 04/20/24 12:58 NM (Rec: 04/20/24 16:11 NM [id number]) Special Tests Lumbar Spine Special Tests Slump Test Results - Comments B Straight Leg Raise Test Results - Comments B Vega/Quadrant Test Results + Comments R PT-OP-M Strength Start: 04/20/24 12:58 Freq: Status: Active Protocol: Document 04/20/24 12:58 NM (Rec: 04/20/24 13:49 NM [id number]) Trunk Strength Trunk Manual Muscle Testing Flexion 3 Fair Extension 3 Fair Rotation Right 4 Good Lateral Flexion Left 4 Good Lateral Flexion Right 4 Good Comments Difficulty stabilizing against resistance Hip Strength Hip Manual Muscle Testing Left Flexion (L2) 4- Good- Extension (S1) 3 Fair Abduction 4- Good- External Rotation 4- Good- Internal Rotation 3 Fair Right Flexion (L2) 4- Good- Extension (S1) 3 Fair Abduction 4- Good- External Rotation 4- Good- Internal Rotation 3 Fair Knee Strength Knee Manual Muscle Testing Right Flexion (S2) 4- Good- Extension (L3) 4- Good- Left Flexion (S2) 4- Good- Extension (L3) 4- Good- Ankle/Foot Strength Ankle and Foot Manual Muscle Testing Right Dorsiflexion (L4) 4- Good- Plantarflexion (S1) 4- Good- Left Dorsiflexion (L4) 4- Good- Plantarflexion (S1) 4- Good- PT-OP-Q Treatments Start: 04/20/24 12:58 Freq: Status: Active Protocol: Document 05/19/24 08:01 AB (Rec: 05/19/24 10:19 AB [id number]) Therapeutic Exercises Supine Exercises modified Trae stretch Side right Reps/Minutes one minute X1 Comments verbal cues figure 4/pirifomis Side bilateral Reps/Minutes 60 sec X 2 each ex each LE Comments verbal and tactile cues Sitting Exercises abduction Sitting Exercise Name isometric hold Side bilateral Resistance level 3 band around thighs Reps/Minutes 60 Comments fatiguing but pain free Standing Exercises calf stretch Standing Exercise Name ANGIE Side bilateral Reps/Minutes 60 sec knees straight 60 sec knees bent Comments verbal and visual cues Manual Therapy Treatment Soft Tissue Mobilization right hip flexor at groin Mobilization Type Cross-Friction Intensity/Depth Moderate Body Position Hooklying Comments monitored for pain glutes/piriformis/HS/calves Body Location right glute/piriformis Mobilization Type Cross-Friction,Rolling Intensity/Depth Moderate Body Position Sidelying lumbar paraspinals Body Location right Mobilization Type Cross-Friction,Rolling, Sustained Pressure Intensity/Depth Moderate Body Position Sidelying Manual Techniques MET for right AI left PI Type for AI PI and pubic shotgun Reps/Duration 6 seconds X 6 for each Neuro Re-Education Treatment Balance Activities retro stretch Details retro stepping this session Equipment 10 feet X 1 CGA SLS Reps/Duration X3 each LE Comments CGA mat with objects under Reps/Duration 2 mats X 2 Comments without device CGA to minima l assist PT-OP-T Assessment and Plan Start: 04/20/24 12:58 Freq: Status: Active Protocol: Document 05/19/24 08:01 AB (Rec: 05/19/24 10:19 AB [id number]) Physical Therapy Assessment Goals Six Impairment stairs Longterm Goal (LTG) Pt will report no increase in baseline pain or poor trunk stability when performing at least 8 stairs with or without hand rail in order to demonstrate improved activity tolerance, pain management, and QOL LTG Duration 12 weeks Five Impairment balance Short Term Goal (STG) Pt will increase Tinetti score >18/28 in order to move from high fall risk to moderate fall risk during gait and stairs STG Duration 6 weeks Longterm Goal (LTG) Pt will increase Tinetti score >23/28 in order to move from high fall risk to moderate fall risk during gait and stairs LTG Duration 12 weeks Four Impairment strength Short Term Goal (STG) Pt will improve B knee flexion and extension strength to at least 4/5 in order to demonstrate improved stability on stairs and with gait STG Duration 6 weeks English Lecturer Goal (LTG) Pt will improve B knee flexion and extension strength to at least 4+/5 in order to demonstrate improved stability on stairs and with gait LTG Duration 12 weeks Three Impairment strength Short Term Goal (STG) Pt will increase B hip extension and abduction strength to at least 4-/5 in order to demonstrate improved hip strength for gait, balance , and to decrease fall risk STG Duration 6 weeks English Lecturer Goal (LTG) Pt will increase B hip extension and abduction strength to at least 4+/5 in order to demonstrate improved hip strength for gait, balance , and to decrease fall risk LTG Duration 12 weeks Two Impairment STS Short Term Goal (STG) Pt will be able to perform 5x STS without compensation or increase in baseline pain in order to demonstrate improved BLE strength for transfers and gait STG Duration 6 weeks English Lecturer Goal (LTG) Pt will be able to perform at least 11 sit to telephone betting clerk 30 seconds (age related norm) without increase in baseline pain in order to demonstrate improved BLE strength for transfers and gait LTG Duration 12 weeks One Impairment ambulation Short Term Goal (STG) Pt will report that he is able to ambulate community distance with or without LRAD without increase in baseline pain in order to demonstrate improved symptom management and social participation STG Duration 6 weeks English Lecturer Goal (LTG) Pt will report that he is able to ambulate any distance with or without LRAD without increase in baseline pain in order to demonstrate improved symptom management and social participation LTG Duration 12 weeks Assessment Summary Assessment Patient reports feeling a little better end of session right hip/groin. Significant increase in SLS post glute med activation bilateral LE without UE use. Physical Therapy Plan Frequency and Duration Frequency of Treatment 2x/Week Duration of treatment (weeks) 12 Plan of Care Start Date 04/20/24 Plan of Care End Date 07/14/24 Next Visit Focus/Plan Next Note Type Treatment Note Next Visit Plan monitor vitals during exercise, hx of spondylolisthesis next session focus on balance and HEP exercises to address balance as able. Standing march (add to HEP if diann well), standing hip strength and stretches, trial 4 step up with support, address push up (pt's personal exercise program), address goals Review: STS with band, hip hinge to pickle processor objects, side steps with band and hand support, DF, calf stretch, calf raise, trial pallof press no lumbar vertebral mobilizations
--- NOTE | 2024-05-24 15:39 | PT.OTN ---
Current Diagnoses Spondylolisthesis, lumbar region (05/24/24) Spondylosis without myelopathy or radiculopathy, lumbar region (05/24/24) Weakness (05/24/24) Physical Therapy Treatment Note PT-OP-A Visit Information Start: 04/20/24 12:58 Freq: Status: Active Protocol: Document 05/24/24 13:53 NM (Rec: 05/24/24 14:34 NM [id number]) Out-Patient Physical Therapy Visit Information Visit Information Visit Type Treatment Note Visit Start Time 13:53 Visit Stop Time 14:33 Visit Number 9 Evaluation Information Evaluation Date 04/20/24 Precautions Precautions Fall risk, hx of heart attack and triple bypass monitor vitals with activity , fall risk PT-OP-B Current Condition Start: 04/20/24 12:58 Freq: Status: Active Protocol: Document 04/20/24 12:58 NM (Rec: 04/20/24 13:49 NM [id number]) Current Condition History of Current Condition Current Complaints pain, mobility, strength, balance History of Current Condition Pt reports back pain and B knee pain. He also has a fat pad in his back. Pain is bilateral and along the spine. Reports he also has R thigh pain, which limits his mobility. He sleeps on his L side primarily but has L shoulder pain too. His back pain is the primary limit for his mobility, no DANIAL but chronic. Has had several injections for pain recently and gets weekly massage, which helps. He reports due to his knees that he has difficulty with walking (speed and distance), transfers from a chair (leg pain and weakness), floor transfer (uses hands), stairs. He has had the R knee replaced. Uses cane for gait but did not bring today. He has fallen 3x times backward when he was standing, so the cane helps keep him from falling backward. He just renovated his home to one story, but still has stairs in his house. 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 Currently, pt does an exercise routine and cardiac rehab 2- 3x/wk, but no other exercise. Wants to go back on family walks again for any distance but has not since before covid Prior Treatments and Tests previous PT at different clinic Treatment Goals Patient/Caregiver Goals walk better, less back pain Prior Functional Status Baseline Function- Recreation/Hobbies exercise routine - 100 toe touches Baseline Function- Other massage 1x/wk Current Functional Impairments (Reported) Functional Limitations- Mobility/Gait unable to participate in family walks Functional Limitations- Recreation/ pain with exercise, toe Hobbies touches row club 3x/wk (does the talking) PT-OP-C Subjective Start: 04/20/24 12:58 Freq: Status: Active Protocol: Document 05/24/24 13:53 NM (Rec: 05/24/24 14:34 NM [id number]) OP-PT Subjective Patient Comments Patient Comments Pt reports that he now has L sided pain in his shoulder; unable to push or WB on arm. States back doing ok. He has compression socks now, which helps a lot PT-OP-E Functional Tests Start: 04/20/24 12:58 Freq: Status: Active Protocol: Document 04/20/24 12:58 NM (Rec: 04/20/24 13:49 NM [id number]) Functional Tests 30 Second Sit to Stand Test Score 10 Comments feel it in knees, use HS to stabilize, poor eccentric Five Times Sit to Stand Test Score 13 sec Comments use HS to stabilize, poor eccentric Tinetti Balance and Gait Assessment Balance Score 8 Gait Score 7 Composite Score 15/28 Other Forward Trunk Flexion Test Name of Test measured fingers to floor Score 9 Comment reproduces pain, tight hamstrings PT-OP-F Manual Assessment Start: 04/20/24 12:58 Freq: Status: Active Protocol: Document 04/20/24 12:58 NM (Rec: 04/20/24 13:49 NM [id number]) Manual Assessments Soft Tissue Assessment Soft Tissue Mobility Assessment Tight hip flexors bilaterally (+ massimo test), increased tone in paraspinals especially QL. L trunk periscapular and paraspinals are more restricted and elevated than R side Joint Mobility Assessment Joint Mobility Assessment Decreased lumbar spine and hip mobility. Hypomobility with P -A springing of lumbar spine spinous processes (not tender) and PSIS/SIJ (tender) - R>L PT-OP-G Mobility & Gait Start: 04/20/24 12:58 Freq: Status: Active Protocol: Document 04/20/24 12:58 NM (Rec: 04/20/24 16:11 NM [id number]) OP Gait Assessment Gait Gait Assistance Required: Standby Assistance Distance (Feet) 150 Assistive Devices Assistive Device Gait Belt Gait Deviations General Gait Pattern Antalgic,Decreased Feet Clearance,Flexed Trunk Factors Limiting Gait Function Factors Limiting Gait Function Decreased Activity Tolerance, Decreased Sensation,Decreased Strength,Limited Range of Motion,Pain,Poor Balance Comments Gait Comments uses AD normally Stair Climbing Evaluation Evaluation Level of Assist On Stairs Contact Guard Assistance Devices Stair Climbing Assistive Devices Left Railing,Right Railing Technique/Endurance Stair Climbing Direction Ascend and Descend Stair Climbing Technique Step Over Step Number of Steps Climbed 4 Stair Climbing Set # Repetitions (reps) 1 Comments Stair Climbing Comments Poor trunk and knee stability with descent. Reproduces knee pain PT-OP-J Posture/Palpation/Skin Start: 04/20/24 12:58 Freq: Status: Active Protocol: Document 04/20/24 12:58 NM (Rec: 04/20/24 16:11 NM [id number]) Posture Evaluation Position Standing Head/C-Spine Posture Forward Head T-Spine Posture Increased Kyphosis L-Spine Posture Increased Lordosis Shoulder Posture (L) Rounded,(R) Rounded,(L) Forward,(L) Elevated Pelvis Posture Anteriorly Tilted Weight Distribution Balanced Hip Posture (L) Externally Rotated,(R) Externally Rotated Knee Posture (L) Genu Valgus,(R) Genu Valgus Ankle/Foot Posture (L) Pronated,(R) Pronated Palpation Assessment Location B knees Palpation Details Tenderness along medial and lateral knees, patellar tendon Tenderness along R quad Tightness of B quads lumbar spine Palpation Details Tenderness along PSIS/SIJ, R>L , QL/paraspinals No midline tenderness. Tenderness lateral to spinous processes. PT-OP-K Range of Motion Start: 04/20/24 12:58 Freq: Status: Active Protocol: Document 04/20/24 12:58 NM (Rec: 04/20/24 13:49 NM [id number]) Lumbar Spine Range of Motion Lumbar Spine Active Percentage Flexion 75 Extension 50 Rotation Left 100 Rotation Right 100 Lateral Flexion Left 75 Lateral Flexion Right 50 Comments Pain reproduced with flex, B lateral flex Hip Goniometric Range of Motion Hip Right Internal Rotation 10 External Rotation 30 Left Internal Rotation 10 External Rotation 20 Knee Goniometric Range of Motion Knee Right Flexion Active (degrees) 128 Extension Active (degrees) 0 Left Flexion Active (degrees) 130 Extension Active (degrees) 0 PT-OP-L Special Tests Start: 04/20/24 12:58 Freq: Status: Active Protocol: Document 04/20/24 12:58 NM (Rec: 04/20/24 16:11 NM [id number]) Special Tests Lumbar Spine Special Tests Slump Test Results - Comments B Straight Leg Raise Test Results - Comments B Vega/Quadrant Test Results + Comments R PT-OP-M Strength Start: 04/20/24 12:58 Freq: Status: Active Protocol: Document 04/20/24 12:58 NM (Rec: 04/20/24 13:49 NM [id number]) Trunk Strength Trunk Manual Muscle Testing Flexion 3 Fair Extension 3 Fair Rotation Right 4 Good Lateral Flexion Left 4 Good Lateral Flexion Right 4 Good Comments Difficulty stabilizing against resistance Hip Strength Hip Manual Muscle Testing Left Flexion (L2) 4- Good- Extension (S1) 3 Fair Abduction 4- Good- External Rotation 4- Good- Internal Rotation 3 Fair Right Flexion (L2) 4- Good- Extension (S1) 3 Fair Abduction 4- Good- External Rotation 4- Good- Internal Rotation 3 Fair Knee Strength Knee Manual Muscle Testing Right Flexion (S2) 4- Good- Extension (L3) 4- Good- Left Flexion (S2) 4- Good- Extension (L3) 4- Good- Ankle/Foot Strength Ankle and Foot Manual Muscle Testing Right Dorsiflexion (L4) 4- Good- Plantarflexion (S1) 4- Good- Left Dorsiflexion (L4) 4- Good- Plantarflexion (S1) 4- Good- PT-OP-Q Treatments Start: 04/20/24 12:58 Freq: Status: Active Protocol: Document 05/24/24 13:53 NM (Rec: 05/24/24 14:34 NM [id number]) Therapeutic Exercises Sitting Exercises hip flexion Sitting Exercise Name trialed in PT for car transfers: january Side bilateral Resistance 2# ankle weight > level 1 band at toes Reps/Minutes 10 ea with weight, 10 with band Comments challenging w/ band but reports no pain if band at toes LAQ Side bilateral Resistance 2# ankle weight Reps/Minutes 20 with 5 hold Comments cued TKE; improved form Standing Exercises pallof Standing Exercise Name press Side bilateral Resistance level 1 band Reps/Minutes 8 ea Comments cued trunk posture, no rot; requires increased time Manual Therapy Treatment Consent Patient gave verbal consent for manual Yes treatment Soft Tissue Mobilization right hip flexor at groin Body Location robin TFL Mobilization Type Cross-Friction Intensity/Depth Moderate Body Position Hooklying Comments Most tender along TFL compared to other hip flexors. Monitored for pain glutes/piriformis/HS/calves Body Location B glute/piriformis Mobilization Type Cross-Friction,Rolling Intensity/Depth Moderate Body Position Sidelying Comments Tenderness along glute/ piriformis robin RLE, improved with soft tissue mobilization with palpable reduction in muscle tension lumbar paraspinals Body Location B Mobilization Type Cross-Friction,Rolling, Sustained Pressure Intensity/Depth Moderate Body Position Sidelying Comments With lateral flexion elongation of QLs. Monitored for pain. Good feedback to elongation technique at ribs/ pelvis Manual Techniques MET for right AI left PI Type R AI, L PI Body Location R hip ext, L hip flex Reps/Duration 6 seconds X 6 for each Comments Cueing for form especially to maintain equal, submaximal contraction. Reports relief afterward PT-OP-T Assessment and Plan Start: 04/20/24 12:58 Freq: Status: Active Protocol: Document 05/24/24 13:53 NM (Rec: 05/24/24 14:34 NM [id number]) Physical Therapy Assessment Goals Six Impairment stairs Fdc Goal (LTG) Pt will report no increase in baseline pain or poor trunk stability when performing at least 8 stairs with or without hand rail in order to demonstrate improved activity tolerance, pain management, and QOL LTG Duration 12 weeks Five Impairment balance Short Term Goal (STG) Pt will increase Tinetti score >18/28 in order to move from high fall risk to moderate fall risk during gait and stairs STG Duration 6 weeks Welding Process Engineer Goal (LTG) Pt will increase Tinetti score >23/28 in order to move from high fall risk to moderate fall risk during gait and stairs LTG Duration 12 weeks Four Impairment strength Short Term Goal (STG) Pt will improve B knee flexion and extension strength to at least 4/5 in order to demonstrate improved stability on stairs and with gait STG Duration 6 weeks Welding Process Engineer Goal (LTG) Pt will improve B knee flexion and extension strength to at least 4+/5 in order to demonstrate improved stability on stairs and with gait LTG Duration 12 weeks Three Impairment strength Short Term Goal (STG) Pt will increase B hip extension and abduction strength to at least 4-/5 in order to demonstrate improved hip strength for gait, balance , and to decrease fall risk STG Duration 6 weeks Welding Process Engineer Goal (LTG) Pt will increase B hip extension and abduction strength to at least 4+/5 in order to demonstrate improved hip strength for gait, balance , and to decrease fall risk LTG Duration 12 weeks Two Impairment STS Short Term Goal (STG) Pt will be able to perform 5x STS without compensation or increase in baseline pain in order to demonstrate improved BLE strength for transfers and gait STG Duration 6 weeks Welding Process Engineer Goal (LTG) Pt will be able to perform at least 11 sit to cargo services coordinator 30 seconds (age related norm) without increase in baseline pain in order to demonstrate improved BLE strength for transfers and gait LTG Duration 12 weeks One Impairment ambulation Short Term Goal (STG) Pt will report that he is able to ambulate community distance with or without LRAD without increase in baseline pain in order to demonstrate improved symptom management and social participation STG Duration 6 weeks Welding Process Engineer Goal (LTG) Pt will report that he is able to ambulate any distance with or without LRAD without increase in baseline pain in order to demonstrate improved symptom management and social participation LTG Duration 12 weeks Assessment Summary Assessment Pt tolerated session well. Reports good feedback to soft tissue mobilization of hip and glute muscles, in addition to MET. Pt reports significantly less pain with exercises and in hip/back following manual treatment. Initiated seated hip flex to help with car transfers; pt has better reponse to resistance band over ankle weights. Will continue to progress in future as pt has tendency to compensate with hip ER. Trialed pallof press for core stability, requires cues for upright posture. Pt consistently demonstrates flexed trunk posture with pallof and gait. PT adjusted new spc to correct height, after which pt demonstrates improved stability and gait speed with new spc, placing all points on the ground correctly with sequencing. Pt would benefit from skilled PT for progressive BLE and core strength, in addition to gait and balance training in order to improve symptom management and activity tolerance. Physical Therapy Plan Frequency and Duration Frequency of Treatment 2x/Week Duration of treatment (weeks) 12 Plan of Care Start Date 04/20/24 Plan of Care End Date 07/14/24 Therapeutic Interventions Therapeutic Interventions Balance Training,Gait Training ,Home Exercise Program,Joint Mobilizations,Manual Therapy, Neuromuscular Re-education, Orthotic/Prosthetic Management ,Patient/Caregiver Education, Self-Care/Home Management, Sensory Integration,Soft Tissue Mobilization,Taping, Therapeutic Activities, Therapeutic Exercises Modalities Cold Pack/Ice Massage,Hot Packs Other Therapeutic Interventions pelvic realignment manual traction Next Visit Focus/Plan Next Note Type Progress Note Next Visit Plan monitor vitals during exercise, hx of spondylolisthesis next session focus on balance and HEP exercises to address balance as able. standing march, pallof Standing march (add to HEP if diann well), standing hip strength and stretches, trial 4 step up with support, address push up (pt's personal exercise program), address goals Review: STS with band, hip hinge to pickle water pump operator objects, side steps with band and hand support, DF, calf stretch, calf raise, trial pallof press no lumbar vertebral mobilizations
--- NOTE | 2024-05-26 14:52 | PT.OTN ---
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) Weakness (05/26/24) Physical Therapy Treatment Note PT-OP-A Visit Information Start: 04/20/24 12:58 Freq: Status: Active Protocol: Document 05/26/24 13:53 NM (Rec: 05/26/24 14:51 NM [id number]) Out-Patient Physical Therapy Visit Information Visit Information Visit Type Progress Note Visit Start Time 13:53 Visit Stop Time 14:31 Visit Number 10 Evaluation Information Evaluation Date 04/20/24 Precautions Precautions Fall risk, hx of heart attack and triple bypass monitor vitals with activity , fall risk PT-OP-B Current Condition Start: 04/20/24 12:58 Freq: Status: Active Protocol: Document 04/20/24 12:58 NM (Rec: 04/20/24 13:49 NM [id number]) Current Condition History of Current Condition Current Complaints pain, mobility, strength, balance History of Current Condition Pt reports back pain and B knee pain. He also has a fat pad in his back. Pain is bilateral and along the spine. Reports he also has R thigh pain, which limits his mobility. He sleeps on his L side primarily but has L shoulder pain too. His back pain is the primary limit for his mobility, no DANIAL but chronic. Has had several injections for pain recently and gets weekly massage, which helps. He reports due to his knees that he has difficulty with walking (speed and distance), transfers from a chair (leg pain and weakness), floor transfer (uses hands), stairs. He has had the R knee replaced. Uses cane for gait but did not bring today. He has fallen 3x times backward when he was standing, so the cane helps keep him from falling backward. He just renovated his home to one story, but still has stairs in his house. 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 Currently, pt does an exercise routine and cardiac rehab 2- 3x/wk, but no other exercise. Wants to go back on family walks again for any distance but has not since before covid Prior Treatments and Tests previous PT at different clinic Treatment Goals Patient/Caregiver Goals walk better, less back pain Prior Functional Status Baseline Function- Recreation/Hobbies exercise routine - 100 toe touches Baseline Function- Other massage 1x/wk Current Functional Impairments (Reported) Functional Limitations- Mobility/Gait unable to participate in family walks Functional Limitations- Recreation/ pain with exercise, toe Hobbies touches row club 3x/wk (does the talking) PT-OP-C Subjective Start: 04/20/24 12:58 Freq: Status: Active Protocol: Document 05/26/24 13:53 NM (Rec: 05/26/24 14:51 NM [id number]) OP-PT Subjective Patient Comments Patient Comments Pt reports L shoulder pain resolved. He just got done with massage therapy. Still has R hip pain PT-OP-E Functional Tests Start: 04/20/24 12:58 Freq: Status: Active Protocol: Document 04/20/24 12:58 NM (Rec: 04/20/24 13:49 NM [id number]) Functional Tests 30 Second Sit to Stand Test Score 10 Comments feel it in knees, use HS to stabilize, poor eccentric Five Times Sit to Stand Test Score 13 sec Comments use HS to stabilize, poor eccentric Tinetti Balance and Gait Assessment Balance Score 8 Gait Score 7 Composite Score 15/28 Other Forward Trunk Flexion Test Name of Test measured fingers to floor Score 9 Comment reproduces pain, tight hamstrings PT-OP-F Manual Assessment Start: 04/20/24 12:58 Freq: Status: Active Protocol: Document 04/20/24 12:58 NM (Rec: 04/20/24 13:49 NM [id number]) Manual Assessments Soft Tissue Assessment Soft Tissue Mobility Assessment Tight hip flexors bilaterally (+ massimo test), increased tone in paraspinals especially QL. L trunk periscapular and paraspinals are more restricted and elevated than R side Joint Mobility Assessment Joint Mobility Assessment Decreased lumbar spine and hip mobility. Hypomobility with P -A springing of lumbar spine spinous processes (not tender) and PSIS/SIJ (tender) - R>L PT-OP-G Mobility & Gait Start: 04/20/24 12:58 Freq: Status: Active Protocol: Document 04/20/24 12:58 NM (Rec: 04/20/24 16:11 NM [id number]) OP Gait Assessment Gait Gait Assistance Required: Standby Assistance Distance (Feet) 150 Assistive Devices Assistive Device Gait Belt Gait Deviations General Gait Pattern Antalgic,Decreased Feet Clearance,Flexed Trunk Factors Limiting Gait Function Factors Limiting Gait Function Decreased Activity Tolerance, Decreased Sensation,Decreased Strength,Limited Range of Motion,Pain,Poor Balance Comments Gait Comments uses AD normally Stair Climbing Evaluation Evaluation Level of Assist On Stairs Contact Guard Assistance Devices Stair Climbing Assistive Devices Left Railing,Right Railing Technique/Endurance Stair Climbing Direction Ascend and Descend Stair Climbing Technique Step Over Step Number of Steps Climbed 4 Stair Climbing Set # Repetitions (reps) 1 Comments Stair Climbing Comments Poor trunk and knee stability with descent. Reproduces knee pain PT-OP-J Posture/Palpation/Skin Start: 04/20/24 12:58 Freq: Status: Active Protocol: Document 04/20/24 12:58 NM (Rec: 04/20/24 16:11 NM [id number]) Posture Evaluation Position Standing Head/C-Spine Posture Forward Head T-Spine Posture Increased Kyphosis L-Spine Posture Increased Lordosis Shoulder Posture (L) Rounded,(R) Rounded,(L) Forward,(L) Elevated Pelvis Posture Anteriorly Tilted Weight Distribution Balanced Hip Posture (L) Externally Rotated,(R) Externally Rotated Knee Posture (L) Genu Valgus,(R) Genu Valgus Ankle/Foot Posture (L) Pronated,(R) Pronated Palpation Assessment Location B knees Palpation Details Tenderness along medial and lateral knees, patellar tendon Tenderness along R quad Tightness of B quads lumbar spine Palpation Details Tenderness along PSIS/SIJ, R>L , QL/paraspinals No midline tenderness. Tenderness lateral to spinous processes. PT-OP-K Range of Motion Start: 04/20/24 12:58 Freq: Status: Active Protocol: Document 04/20/24 12:58 NM (Rec: 04/20/24 13:49 NM [id number]) Lumbar Spine Range of Motion Lumbar Spine Active Percentage Flexion 75 Extension 50 Rotation Left 100 Rotation Right 100 Lateral Flexion Left 75 Lateral Flexion Right 50 Comments Pain reproduced with flex, B lateral flex Hip Goniometric Range of Motion Hip Right Internal Rotation 10 External Rotation 30 Left Internal Rotation 10 External Rotation 20 Knee Goniometric Range of Motion Knee Right Flexion Active (degrees) 128 Extension Active (degrees) 0 Left Flexion Active (degrees) 130 Extension Active (degrees) 0 PT-OP-L Special Tests Start: 04/20/24 12:58 Freq: Status: Active Protocol: Document 04/20/24 12:58 NM (Rec: 04/20/24 16:11 NM [id number]) Special Tests Lumbar Spine Special Tests Slump Test Results - Comments B Straight Leg Raise Test Results - Comments B Vega/Quadrant Test Results + Comments R PT-OP-M Strength Start: 04/20/24 12:58 Freq: Status: Active Protocol: Document 05/26/24 13:53 NM (Rec: 05/26/24 14:52 NM [id number]) Hip Strength Hip Manual Muscle Testing Left Flexion (L2) 4- Good- Extension (S1) 3 Fair Abduction 4- Good- External Rotation 4- Good- Internal Rotation 3 Fair Comments 05/26/24: 4/5 MMT Right Flexion (L2) 4- Good- Extension (S1) 3 Fair Abduction 4- Good- External Rotation 4- Good- Internal Rotation 3 Fair Comments 05/26/24: 4/5 MMT Knee Strength Knee Manual Muscle Testing Right Flexion (S2) 4- Good- Extension (L3) 4- Good- Comments 05/26/24: 4/5 MMT Left Flexion (S2) 4- Good- Extension (L3) 4- Good- Comments 05/26/24: 4/5 MMT PT-OP-Q Treatments Start: 04/20/24 12:58 Freq: Status: Active Protocol: Document 05/26/24 13:53 NM (Rec: 05/26/24 14:51 NM [id number]) Therapeutic Exercises Sitting Exercises sit to stand Side bilateral Resistance level 2 above thighs Reps/Minutes 4x5 Comments cue for ant weight shift Standing Exercises step up Side bilateral Equipment Used 4 step up, 1 rail assist Reps/Minutes 10 ea Comments cued hip hinge for glute pallof Standing Exercise Name press Side bilateral Resistance level 1 band Comments cued trunk posture, no rot; requires increased time calf stretch Standing Exercise Name ANGIE Side bilateral Reps/Minutes 60 sec knees straight Comments verbal and visual cues hip flexion Standing Exercise Name marching Side bilateral Resistance level 1 band around thighs Equipment Used 2 hand support on ballet bar Reps/Minutes 10 ea Comments cued neutral foot position, wider KUSHAL; wow this this good Neuro Re-Education Treatment Balance Activities Tinetti Reps/Duration Comments improved stability with nudge PT-OP-T Assessment and Plan Start: 04/20/24 12:58 Freq: Status: Active Protocol: Document 05/26/24 13:53 NM (Rec: 05/26/24 14:51 NM [id number]) Physical Therapy Assessment Goals Six Impairment stairs Jail Goal (LTG) Pt will report no increase in baseline pain or poor trunk stability when performing at least 8 stairs with or without hand rail in order to demonstrate improved activity tolerance, pain management, and QOL LTG Duration 12 weeks Five Impairment balance Short Term Goal (STG) Pt will increase Tinetti score >18/28 in order to move from high fall risk to moderate fall risk during gait and stairs 05/26/24: STG Duration 6 weeks [facility] Goal (LTG) Pt will increase Tinetti score >23/28 in order to move from high fall risk to moderate fall risk during gait and stairs LTG Duration 12 weeks Four Impairment strength Short Term Goal (STG) Pt will improve B knee flexion and extension strength to at least 4/5 in order to demonstrate improved stability on stairs and with gait 05/26/24: 4/5 STG Duration 6 weeks [facility] [employer] Goal (LTG) Pt will improve B knee flexion and extension strength to at least 4+/5 in order to demonstrate improved stability on stairs and with gait LTG Duration 12 weeks Three Impairment strength Short Term Goal (STG) Pt will increase B hip extension and abduction strength to at least 4-/5 in order to demonstrate improved hip strength for gait, balance , and to decrease fall risk 05/26/24: 4/5 STG Duration 6 weeks [facility] [employer] Goal (LTG) Pt will increase B hip extension and abduction strength to at least 4+/5 in order to demonstrate improved hip strength for gait, balance , and to decrease fall risk LTG Duration 12 weeks Two Impairment STS Short Term Goal (STG) Pt will be able to perform 5x STS without compensation or increase in baseline pain in order to demonstrate improved BLE strength for transfers and gait 05/26/24: 5 STS w/ annoying pain in lateral hip which is reduced with band at thighs for hip abd STG Duration 6 weeks [facility] [employer] Goal (LTG) Pt will be able to perform at least 11 sit to wearing apparel shaker 30 seconds (age related norm) without increase in baseline pain in order to demonstrate improved BLE strength for transfers and gait LTG Duration 12 weeks One Impairment ambulation Short Term Goal (STG) Pt will report that he is able to ambulate community distance with or without LRAD without increase in baseline pain in order to demonstrate improved symptom management and social participation 05/26/24: pt reports that he can take the dog 2 blocks ea direction w/o any pain, which is more than he used to be able to do since starting PT STG Duration 6 weeks [facility] [employer] Goal (LTG) Pt will report that he is able to ambulate any distance with or without LRAD without increase in baseline pain in order to demonstrate improved symptom management and social participation LTG Duration 12 weeks Assessment Summary Assessment Pt tolerated session well. Continued with hip and knee strengthening to improve transfers and stability during gait. Initiated seated HSC to improve knee flexion strength . Improved tolerance for hip flexion in standing vs sitting . Pt demonstrates improved trunk posture during pallor press, requiring fewer cues for form and posture. Trialed step ups today. LLE more challenging than RLE; cued for greater glute activation vs quad dominant approach to reduce L knee pain. PT also briefly educated pt on 2pt vs 3 pt gait pattern with spc for safety during gait. Pt would benefit from skilled PT for progressive trunk/core/hip strengthening to improve body mechanics, balance, and gait. Physical Therapy Plan Frequency and Duration Frequency of Treatment 2x/Week Duration of treatment (weeks) 12 Plan of Care Start Date 04/20/24 Plan of Care End Date 07/14/24 Therapeutic Interventions Therapeutic Interventions Balance Training,Gait Training ,Home Exercise Program,Joint Mobilizations,Manual Therapy, Neuromuscular Re-education, Orthotic/Prosthetic Management ,Patient/Caregiver Education, Self-Care/Home Management, Sensory Integration,Soft Tissue Mobilization,Taping, Therapeutic Activities, Therapeutic Exercises Modalities Cold Pack/Ice Massage,Hot Packs Other Therapeutic Interventions pelvic realignment manual traction Next Visit Focus/Plan Next Note Type Treatment Note Next Visit Plan monitor vitals during exercise, hx of spondylolisthesis squat with band, step up 4 with glute approach, eventually leg press, hip abd strength, core strength ( pallof walkout, press, montserratian ball tammy- bugs, modified plank on counter or bird dog) next session focus on balance and HEP exercises to address balance as able. standing january, pallof Standing january (add to HEP if diann well), standing hip strength and stretches, trial 4 step up with support, address push up (pt's personal exercise program), address goals Review: STS with band, hip hinge to fiber picker objects, side steps with band and hand support, DF, calf stretch, calf raise, trial pallof press no lumbar vertebral mobilizations
--- NOTE | 2024-05-30 12:59 | PT.OTN ---
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) Weakness (05/30/24) Physical Therapy Treatment Note PT-OP-A Visit Information Start: 04/20/24 12:58 Freq: Status: Active Protocol: Document 05/30/24 08:09 AB (Rec: 05/30/24 09:50 AB [id number]) Out-Patient Physical Therapy Visit Information Visit Information Visit Type Treatment Note Visit Start Time 09:03 Visit Stop Time 09:47 Visit Number 11 Number of MACHINE SCALLOP CUTTER Visits 1 Evaluation Information Evaluation Date 04/20/24 Precautions Precautions Fall risk, hx of heart attack and triple bypass monitor vitals with activity , fall risk PT-OP-B Current Condition Start: 04/20/24 12:58 Freq: Status: Active Protocol: Document 04/20/24 12:58 NM (Rec: 04/20/24 13:49 NM [id number]) Current Condition History of Current Condition Current Complaints pain, mobility, strength, balance History of Current Condition Pt reports back pain and B knee pain. He also has a fat pad in his back. Pain is bilateral and along the spine. Reports he also has R thigh pain, which limits his mobility. He sleeps on his L side primarily but has L shoulder pain too. His back pain is the primary limit for his mobility, no DANIAL but chronic. Has had several injections for pain recently and gets weekly massage, which helps. He reports due to his knees that he has difficulty with walking (speed and distance), transfers from a chair (leg pain and weakness), floor transfer (uses hands), stairs. He has had the R knee replaced. Uses cane for gait but did not bring today. He has fallen 3x times backward when he was standing, so the cane helps keep him from falling backward. He just renovated his home to one story, but still has stairs in his house. 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 Currently, pt does an exercise routine and cardiac rehab 2- 3x/wk, but no other exercise. Wants to go back on family walks again for any distance but has not since before covid Prior Treatments and Tests previous PT at different clinic Treatment Goals Patient/Caregiver Goals walk better, less back pain Prior Functional Status Baseline Function- Recreation/Hobbies exercise routine - 100 toe touches Baseline Function- Other massage 1x/wk Current Functional Impairments (Reported) Functional Limitations- Mobility/Gait unable to participate in family walks Functional Limitations- Recreation/ pain with exercise, toe Hobbies touches row club 3x/wk (does the talking) PT-OP-C Subjective Start: 04/20/24 12:58 Freq: Status: Active Protocol: Document 05/30/24 08:09 AB (Rec: 05/30/24 09:50 AB [id number]) OP-PT Subjective Patient Comments Patient Comments Patient reports the shoulder hurt when putting on jackets. Patient reports has his typical back pain, hip is painful, comments that he just got off the treadmill. Patient reports he is getting better at walking, did not have pain when walking on treadmill. BP seated right UE 149/73 HR HR 46 PT-OP-E Functional Tests Start: 04/20/24 12:58 Freq: Status: Active Protocol: Document 04/20/24 12:58 NM (Rec: 04/20/24 13:49 NM [id number]) Functional Tests 30 Second Sit to Stand Test Score 10 Comments feel it in knees, use HS to stabilize, poor eccentric Five Times Sit to Stand Test Score 13 sec Comments use HS to stabilize, poor eccentric Tinetti Balance and Gait Assessment Balance Score 8 Gait Score 7 Composite Score 15/28 Other Forward Trunk Flexion Test Name of Test measured fingers to floor Score 9 Comment reproduces pain, tight hamstrings PT-OP-F Manual Assessment Start: 04/20/24 12:58 Freq: Status: Active Protocol: Document 04/20/24 12:58 NM (Rec: 04/20/24 13:49 NM [id number]) Manual Assessments Soft Tissue Assessment Soft Tissue Mobility Assessment Tight hip flexors bilaterally (+ massimo test), increased tone in paraspinals especially QL. L trunk periscapular and paraspinals are more restricted and elevated than R side Joint Mobility Assessment Joint Mobility Assessment Decreased lumbar spine and hip mobility. Hypomobility with P -A springing of lumbar spine spinous processes (not tender) and PSIS/SIJ (tender) - R>L PT-OP-G Mobility & Gait Start: 04/20/24 12:58 Freq: Status: Active Protocol: Document 04/20/24 12:58 NM (Rec: 04/20/24 16:11 NM [id number]) OP Gait Assessment Gait Gait Assistance Required: Standby Assistance Distance (Feet) 150 Assistive Devices Assistive Device Gait Belt Gait Deviations General Gait Pattern Antalgic,Decreased Feet Clearance,Flexed Trunk Factors Limiting Gait Function Factors Limiting Gait Function Decreased Activity Tolerance, Decreased Sensation,Decreased Strength,Limited Range of Motion,Pain,Poor Balance Comments Gait Comments uses AD normally Stair Climbing Evaluation Evaluation Level of Assist On Stairs Contact Guard Assistance Devices Stair Climbing Assistive Devices Left Railing,Right Railing Technique/Endurance Stair Climbing Direction Ascend and Descend Stair Climbing Technique Step Over Step Number of Steps Climbed 4 Stair Climbing Set # Repetitions (reps) 1 Comments Stair Climbing Comments Poor trunk and knee stability with descent. Reproduces knee pain PT-OP-J Posture/Palpation/Skin Start: 04/20/24 12:58 Freq: Status: Active Protocol: Document 04/20/24 12:58 NM (Rec: 04/20/24 16:11 NM [id number]) Posture Evaluation Position Standing Head/C-Spine Posture Forward Head T-Spine Posture Increased Kyphosis L-Spine Posture Increased Lordosis Shoulder Posture (L) Rounded,(R) Rounded,(L) Forward,(L) Elevated Pelvis Posture Anteriorly Tilted Weight Distribution Balanced Hip Posture (L) Externally Rotated,(R) Externally Rotated Knee Posture (L) Genu Valgus,(R) Genu Valgus Ankle/Foot Posture (L) Pronated,(R) Pronated Palpation Assessment Location B knees Palpation Details Tenderness along medial and lateral knees, patellar tendon Tenderness along R quad Tightness of B quads lumbar spine Palpation Details Tenderness along PSIS/SIJ, R>L , QL/paraspinals No midline tenderness. Tenderness lateral to spinous processes. PT-OP-K Range of Motion Start: 04/20/24 12:58 Freq: Status: Active Protocol: Document 04/20/24 12:58 NM (Rec: 04/20/24 13:49 NM [id number]) Lumbar Spine Range of Motion Lumbar Spine Active Percentage Flexion 75 Extension 50 Rotation Left 100 Rotation Right 100 Lateral Flexion Left 75 Lateral Flexion Right 50 Comments Pain reproduced with flex, B lateral flex Hip Goniometric Range of Motion Hip Right Internal Rotation 10 External Rotation 30 Left Internal Rotation 10 External Rotation 20 Knee Goniometric Range of Motion Knee Right Flexion Active (degrees) 128 Extension Active (degrees) 0 Left Flexion Active (degrees) 130 Extension Active (degrees) 0 PT-OP-L Special Tests Start: 04/20/24 12:58 Freq: Status: Active Protocol: Document 04/20/24 12:58 NM (Rec: 04/20/24 16:11 NM [id number]) Special Tests Lumbar Spine Special Tests Slump Test Results - Comments B Straight Leg Raise Test Results - Comments B Vega/Quadrant Test Results + Comments R PT-OP-M Strength Start: 04/20/24 12:58 Freq: Status: Active Protocol: Document 05/26/24 13:53 NM (Rec: 05/26/24 14:52 NM [id number]) Hip Strength Hip Manual Muscle Testing Left Flexion (L2) 4- Good- Extension (S1) 3 Fair Abduction 4- Good- External Rotation 4- Good- Internal Rotation 3 Fair Comments 05/26/24: 4/5 MMT Right Flexion (L2) 4- Good- Extension (S1) 3 Fair Abduction 4- Good- External Rotation 4- Good- Internal Rotation 3 Fair Comments 05/26/24: 4/5 MMT Knee Strength Knee Manual Muscle Testing Right Flexion (S2) 4- Good- Extension (L3) 4- Good- Comments 05/26/24: 4/5 MMT Left Flexion (S2) 4- Good- Extension (L3) 4- Good- Comments 05/26/24: 4/5 MMT PT-OP-Q Treatments Start: 04/20/24 12:58 Freq: Status: Active Protocol: Document 05/30/24 08:09 AB (Rec: 05/30/24 09:50 AB [id number]) Therapeutic Exercises Supine Exercises modified Trae stretch Supine Exercise Name right knee to chest with left over edge of mat Side right Reps/Minutes one minute X1 Comments verbal cues figure 4/pirifomis Side bilateral Reps/Minutes 60 sec X 2 each ex each LE Comments verbal and tactile cues Sitting Exercises hip flexion Sitting Exercise Name for car transfers: march Side bilateral Resistance 2# ankle weight Reps/Minutes x10 abduction Sitting Exercise Name isometric hold Side bilateral Resistance level 3 band around thighs Reps/Minutes 60 Comments fatiguing but pain free Manual Therapy Treatment Soft Tissue Mobilization glutes/piriformis/HS/calves Body Location B glute/piriformis Mobilization Type Cross-Friction,Rolling Intensity/Depth Moderate Body Position Sidelying Comments Tenderness along glute/ piriformis robin RLE, improved with soft tissue mobilization with palpable reduction in muscle tension lumbar paraspinals Body Location B Mobilization Type Cross-Friction,Rolling, Sustained Pressure Intensity/Depth Moderate Body Position Sidelying Comments With lateral flexion elongation of QLs. Monitored for pain. Good feedback to elongation technique at ribs/ pelvis Manual Techniques MET for right AI left PI Type R AI, L PI Body Location R hip ext, L hip flex Reps/Duration 6 seconds X 6 for each Comments Cueing for form especially to maintain equal, submaximal contraction. Reports relief afterward PT-OP-T Assessment and Plan Start: 04/20/24 12:58 Freq: Status: Active Protocol: Document 05/30/24 08:09 AB (Rec: 05/30/24 09:50 AB [id number]) Physical Therapy Assessment Goals Six Impairment stairs Ceramic Capacitor Processor Goal (LTG) Pt will report no increase in baseline pain or poor trunk stability when performing at least 8 stairs with or without hand rail in order to demonstrate improved activity tolerance, pain management, and QOL LTG Duration 12 weeks Five Impairment balance Short Term Goal (STG) Pt will increase Tinetti score >18/28 in order to move from high fall risk to moderate fall risk during gait and stairs 05/26/24: STG Duration 6 weeks MET Ceramic Capacitor Processor Goal (LTG) Pt will increase Tinetti score >23/28 in order to move from high fall risk to moderate fall risk during gait and stairs LTG Duration 12 weeks Four Impairment strength Short Term Goal (STG) Pt will improve B knee flexion and extension strength to at least 4/5 in order to demonstrate improved stability on stairs and with gait 05/26/24: 4/5 STG Duration 6 weeks MET Ceramic Capacitor Processor Goal (LTG) Pt will improve B knee flexion and extension strength to at least 4+/5 in order to demonstrate improved stability on stairs and with gait LTG Duration 12 weeks Three Impairment strength Short Term Goal (STG) Pt will increase B hip extension and abduction strength to at least 4-/5 in order to demonstrate improved hip strength for gait, balance , and to decrease fall risk 05/26/24: 4/5 STG Duration 6 weeks MET Alf Goal (LTG) Pt will increase B hip extension and abduction strength to at least 4+/5 in order to demonstrate improved hip strength for gait, balance , and to decrease fall risk LTG Duration 12 weeks Two Impairment STS Short Term Goal (STG) Pt will be able to perform 5x STS without compensation or increase in baseline pain in order to demonstrate improved BLE strength for transfers and gait 05/26/24: 5 STS w/ annoying pain in lateral hip which is reduced with band at thighs for hip abd STG Duration 6 weeks MET Ceramic Capacitor Processor Goal (LTG) Pt will be able to perform at least 11 sit to insurance policy clerk 30 seconds (age related norm) without increase in baseline pain in order to demonstrate improved BLE strength for transfers and gait LTG Duration 12 weeks One Impairment ambulation Short Term Goal (STG) Pt will report that he is able to ambulate community distance with or without LRAD without increase in baseline pain in order to demonstrate improved symptom management and social participation 05/26/24: pt reports that he can take the dog 2 blocks ea direction w/o any pain, which is more than he used to be able to do since starting PT STG Duration 6 weeks MET Alf Goal (LTG) Pt will report that he is able to ambulate any distance with or without LRAD without increase in baseline pain in order to demonstrate improved symptom management and social participation LTG Duration 12 weeks Assessment Summary Assessment Patient tolerated session well , reports he still still feels it in the hip, but it is less . Physical Therapy Plan Frequency and Duration Frequency of Treatment 2x/Week Duration of treatment (weeks) 12 Plan of Care Start Date 04/20/24 Plan of Care End Date 07/14/24 Next Visit Focus/Plan Next Note Type Treatment Note Next Visit Plan monitor vitals during exercise, hx of spondylolisthesis squat with band, step up 4 with glute approach, eventually leg press, hip abd strength, core strength ( pallof walkout, press, cape verdean ball tammy- bugs, modified plank on counter or bird dog) next session focus on balance and HEP exercises to address balance as able. standing march, pallof Standing march (add to HEP if diann well), standing hip strength and stretches, trial 4 step up with support, address push up (pt's personal exercise program), address goals Review: STS with band, hip hinge to peanut picker objects, side steps with band and hand support, DF, calf stretch, calf raise, trial pallof press no lumbar vertebral mobilizations Focus on balance next session
--- NOTE | 2024-06-02 12:58 | PT.OTN ---
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 He also has a fat pad in his back. Pain is bilateral and along the spine. Reports he also has R thigh pain, which limits his mobility. He sleeps on his L side primarily but has L shoulder pain too. His back pain is the primary limit for his mobility, no DANIAL but chronic. Has had several injections for pain recently and gets weekly massage, which helps. He reports due to his knees that he has difficulty with walking (speed and distance), transfers from a chair (leg pain and weakness), floor transfer (uses hands), stairs. He has had the R knee replaced. Uses cane for gait but did not bring today. He has fallen 3x times backward when he was standing, so the cane helps keep him from falling backward. He just renovated his home to one story, but still has stairs in his house. 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 Currently, pt does an exercise routine and cardiac rehab 2- 3x/wk, but no other exercise. Wants to go back on family walks again for any distance but has not since before covid Prior Treatments and Tests previous PT at different clinic Treatment Goals Patient/Caregiver Goals walk better, less back pain Prior Functional Status Baseline Function- Recreation/Hobbies exercise routine - 100 toe touches Baseline Function- Other massage 1x/wk Current Functional Impairments (Reported) Functional Limitations- Mobility/Gait unable to participate in family walks Functional Limitations- Recreation/ pain with exercise, toe Hobbies touches row club 3x/wk (does the talking) PT-OP-C Subjective Start: 04/20/24 12:58 Freq: Status: Active Protocol: Document 06/02/24 08:08 AB (Rec: 06/02/24 09:03 AB [id number]) OP-PT Subjective Patient Comments Patient Comments Patient reports he is doing OK today. Comments he had an appt with MD yesterday and comments things are as good as they can be, referring to PSAT test. BP left UE seated start of session 161/71 HR 51, patient comments that he just finished cardiac gym. PT-OP-E Functional Tests Start: 04/20/24 12:58 Freq: Status: Active Protocol: Document 04/20/24 12:58 NM (Rec: 04/20/24 13:49 NM [id number]) Functional Tests 30 Second Sit to Stand Test Score 10 Comments feel it in knees, use HS to stabilize, poor eccentric Five Times Sit to Stand Test Score 13 sec Comments use HS to stabilize, poor eccentric Tinetti Balance and Gait Assessment Balance Score 8 Gait Score 7 Composite Score 15/28 Other Forward Trunk Flexion Test Name of Test measured fingers to floor Score 9 Comment reproduces pain, tight hamstrings PT-OP-F Manual Assessment Start: 04/20/24 12:58 Freq: Status: Active Protocol: Document 04/20/24 12:58 NM (Rec: 04/20/24 13:49 NM [id number]) Manual Assessments Soft Tissue Assessment Soft Tissue Mobility Assessment Tight hip flexors bilaterally (+ massimo test), increased tone in paraspinals especially QL. L trunk periscapular and paraspinals are more restricted and elevated than R side Joint Mobility Assessment Joint Mobility Assessment Decreased lumbar spine and hip mobility. Hypomobility with P -A springing of lumbar spine spinous processes (not tender) and PSIS/SIJ (tender) - R>L PT-OP-G Mobility & Gait Start: 04/20/24 12:58 Freq: Status: Active Protocol: Document 04/20/24 12:58 NM (Rec: 04/20/24 16:11 NM [id number]) OP Gait Assessment Gait Gait Assistance Required: Standby Assistance Distance (Feet) 150 Assistive Devices Assistive Device Gait Belt Gait Deviations General Gait Pattern Antalgic,Decreased Feet Clearance,Flexed Trunk Factors Limiting Gait Function Factors Limiting Gait Function Decreased Activity Tolerance, Decreased Sensation,Decreased Strength,Limited Range of Motion,Pain,Poor Balance Comments Gait Comments uses AD normally Stair Climbing Evaluation Evaluation Level of Assist On Stairs Contact Guard Assistance Devices Stair Climbing Assistive Devices Left Railing,Right Railing Technique/Endurance Stair Climbing Direction Ascend and Descend Stair Climbing Technique Step Over Step Number of Steps Climbed 4 Stair Climbing Set # Repetitions (reps) 1 Comments Stair Climbing Comments Poor trunk and knee stability with descent. Reproduces knee pain PT-OP-J Posture/Palpation/Skin Start: 04/20/24 12:58 Freq: Status: Active Protocol: Document 04/20/24 12:58 NM (Rec: 04/20/24 16:11 NM [id number]) Posture Evaluation Position Standing Head/C-Spine Posture Forward Head T-Spine Posture Increased Kyphosis L-Spine Posture Increased Lordosis Shoulder Posture (L) Rounded,(R) Rounded,(L) Forward,(L) Elevated Pelvis Posture Anteriorly Tilted Weight Distribution Balanced Hip Posture (L) Externally Rotated,(R) Externally Rotated Knee Posture (L) Genu Valgus,(R) Genu Valgus Ankle/Foot Posture (L) Pronated,(R) Pronated Palpation Assessment Location B knees Palpation Details Tenderness along medial and lateral knees, patellar tendon Tenderness along R quad Tightness of B quads lumbar spine Palpation Details Tenderness along PSIS/SIJ, R>L , QL/paraspinals No midline tenderness. Tenderness lateral to spinous processes. PT-OP-K Range of Motion Start: 04/20/24 12:58 Freq: Status: Active Protocol: Document 04/20/24 12:58 NM (Rec: 04/20/24 13:49 NM [id number]) Lumbar Spine Range of Motion Lumbar Spine Active Percentage Flexion 75 Extension 50 Rotation Left 100 Rotation Right 100 Lateral Flexion Left 75 Lateral Flexion Right 50 Comments Pain reproduced with flex, B lateral flex Hip Goniometric Range of Motion Hip Right Internal Rotation 10 External Rotation 30 Left Internal Rotation 10 External Rotation 20 Knee Goniometric Range of Motion Knee Right Flexion Active (degrees) 128 Extension Active (degrees) 0 Left Flexion Active (degrees) 130 Extension Active (degrees) 0 PT-OP-L Special Tests Start: 04/20/24 12:58 Freq: Status: Active Protocol: Document 04/20/24 12:58 NM (Rec: 04/20/24 16:11 NM [id number]) Special Tests Lumbar Spine Special Tests Slump Test Results - Comments B Straight Leg Raise Test Results - Comments B Vega/Quadrant Test Results + Comments R PT-OP-M Strength Start: 04/20/24 12:58 Freq: Status: Active Protocol: Document 05/26/24 13:53 NM (Rec: 05/26/24 14:52 NM [id number]) Hip Strength Hip Manual Muscle Testing Left Flexion (L2) 4- Good- Extension (S1) 3 Fair Abduction 4- Good- External Rotation 4- Good- Internal Rotation 3 Fair Comments 05/26/24: 4/5 MMT Right Flexion (L2) 4- Good- Extension (S1) 3 Fair Abduction 4- Good- External Rotation 4- Good- Internal Rotation 3 Fair Comments 05/26/24: 4/5 MMT Knee Strength Knee Manual Muscle Testing Right Flexion (S2) 4- Good- Extension (L3) 4- Good- Comments 05/26/24: 4/5 MMT Left Flexion (S2) 4- Good- Extension (L3) 4- Good- Comments 05/26/24: 4/5 MMT PT-OP-Q Treatments Start: 04/20/24 12:58 Freq: Status: Active Protocol: Document 06/02/24 08:08 AB (Rec: 06/02/24 09:03 AB [id number]) Gym Equipment Shuttle Balance red Details normal KUSHAL Reps/Duration 3 min Therapeutic Exercises Sitting Exercises sit to stand Side bilateral Resistance level 2 above thighs Reps/Minutes X10 Comments cue for ant weight shift abduction Sitting Exercise Name isometric hold Side bilateral Resistance level 3 band around thighs Reps/Minutes 60 And X 25 without hold Comments fatiguing but pain free Standing Exercises calf stretch Standing Exercise Name ANGIE Side bilateral Reps/Minutes 60 sec knees straight Comments verbal and visual cues hip extension Side bilateral Resistance level 3 band above knees Equipment Used UE support on parallel bars Reps/Minutes 2x10 ea Neuro Re-Education Treatment Balance Activities therapads Details 1. stepping 4X 2 1. Stagger stance Equipment 4 pads Comments in stagger stance, eyes closed , visual scanning, head turns, CGA hands above bars tandem stepping Equipment 10 feet X4 Comments CGA hands above the bars hurdles Reps/Duration 10 feet X 6 Comments CGA hands above the bars SLS Details with and without visual scanning and head turns left and right LE Reps/Duration 3 min Comments CGA mat with objects under Reps/Duration 1 mat X 4 Comments without device CGA PT-OP-T Assessment and Plan Start: 04/20/24 12:58 Freq: Status: Active Protocol: Document 06/02/24 08:08 AB (Rec: 06/02/24 09:03 AB [id number]) Physical Therapy Assessment Goals Six Impairment stairs Residential Goal (LTG) Pt will report no increase in baseline pain or poor trunk stability when performing at least 8 stairs with or without hand rail in order to demonstrate improved activity tolerance, pain management, and QOL LTG Duration 12 weeks Five Impairment balance Short Term Goal (STG) Pt will increase Tinetti score >18/28 in order to move from high fall risk to moderate fall risk during gait and stairs 05/26/24: STG Duration 6 weeks MET Residential Goal (LTG) Pt will increase Tinetti score >23/28 in order to move from high fall risk to moderate fall risk during gait and stairs LTG Duration 12 weeks Four Impairment strength Short Term Goal (STG) Pt will improve B knee flexion and extension strength to at least 4/5 in order to demonstrate improved stability on stairs and with gait 05/26/24: 4/5 STG Duration 6 weeks MET 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 (LTG) Pt will improve B knee flexion and extension strength to at least 4+/5 in order to demonstrate improved stability on stairs and with gait LTG Duration 12 weeks Three Impairment strength Short Term Goal (STG) Pt will increase B hip extension and abduction strength to at least 4-/5 in order to demonstrate improved hip strength for gait, balance , and to decrease fall risk 05/26/24: 4/5 STG Duration 6 weeks MET Residential Goal (LTG) Pt will increase B hip extension and abduction strength to at least 4+/5 in order to demonstrate improved hip strength for gait, balance , and to decrease fall risk LTG Duration 12 weeks Two Impairment STS Short Term Goal (STG) Pt will be able to perform 5x STS without compensation or increase in baseline pain in order to demonstrate improved BLE strength for transfers and gait 05/26/24: 5 STS w/ annoying pain in lateral hip which is reduced with band at thighs for hip abd STG Duration 6 weeks MET Residential Goal (LTG) Pt will be able to perform at least 11 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 to mail 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 30 seconds (age related norm) without increase in baseline pain in order to demonstrate improved BLE strength for transfers and gait LTG Duration 12 weeks One Impairment ambulation Short Term Goal (STG) Pt will report that he is able to ambulate community distance with or without LRAD without increase in baseline pain in order to demonstrate improved symptom management and social participation 05/26/24: pt reports that he can take the dog 2 blocks ea direction w/o any pain, which is more than he used to be able to do since starting PT STG Duration 6 weeks MET Residential Goal (LTG) Pt will report that he is able to ambulate any distance with or without LRAD without increase in baseline pain in order to demonstrate improved symptom management and social participation LTG Duration 12 weeks Assessment Summary Assessment Post balance training BP 140/ 77 HR 50 BPM seated left UE. Good diann to balance ex with CGA throughout. Physical Therapy Plan Frequency and Duration Frequency of Treatment 2x/Week Duration of treatment (weeks) 12 Plan of Care Start Date 04/20/24 Plan of Care End Date 07/14/24 Next Visit Focus/Plan Next Visit Plan monitor vitals during exercise, hx of spondylolisthesis squat with band, step up 4 with glute approach, eventually leg press, hip abd strength, core strength ( pallof walkout, press, nicaraguan ball tammy- bugs, modified plank on counter or bird dog) next session focus on balance and HEP exercises to address balance as able. 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
--- NOTE | 2024-06-06 12:47 | PT.OTN ---
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) Weakness (06/06/24) Physical Therapy Treatment Note PT-OP-A Visit Information Start: 04/20/24 12:58 Freq: Status: Active Protocol: Document 06/06/24 08:21 NM (Rec: 06/06/24 09:03 NM [id number]) Out-Patient Physical Therapy Visit Information Visit Information Visit Type Treatment Note Visit Start Time 08:21 Visit Stop Time 09:00 Visit Number 13 PT-OP-B Current Condition Start: 04/20/24 12:58 Freq: Status: Active Protocol: Document 04/20/24 12:58 NM (Rec: 04/20/24 13:49 NM [id number]) Current Condition History of Current Condition Current Complaints pain, mobility, strength, balance History of Current Condition Pt reports back pain and B knee pain. He also has a fat pad in his back. Pain is bilateral and along the spine. Reports he also has R thigh pain, which limits his mobility. He sleeps on his L side primarily but has L shoulder pain too. His back pain is the primary limit for his mobility, no DANIAL but chronic. Has had several injections for pain recently and gets weekly massage, which helps. He reports due to his knees that he has difficulty with walking (speed and distance), transfers from a chair (leg pain and weakness), floor transfer (uses hands), stairs. He has had the R knee replaced. Uses cane for gait but did not bring today. He has fallen 3x times backward when he was standing, so the cane helps keep him from falling backward. He just renovated his home to one story, but still has stairs in his house. 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 Currently, pt does an exercise routine and cardiac rehab 2- 3x/wk, but no other exercise. Wants to go back on family walks again for any distance but has not since before covid Prior Treatments and Tests previous PT at different clinic Treatment Goals Patient/Caregiver Goals walk better, less back pain Prior Functional Status Baseline Function- Recreation/Hobbies exercise routine - 100 toe touches Baseline Function- Other massage 1x/wk Current Functional Impairments (Reported) Functional Limitations- Mobility/Gait unable to participate in family walks Functional Limitations- Recreation/ pain with exercise, toe Hobbies touches row club 3x/wk (does the talking) PT-OP-C Subjective Start: 04/20/24 12:58 Freq: Status: Active Protocol: Document 06/06/24 08:21 NM (Rec: 06/06/24 09:03 NM [id number]) OP-PT Subjective Patient Comments Patient Comments Pt reports no back or leg pain today. Has appt with machine maintenance. BP with cardiac rehab this am 142/62. Still has swelling in LLE > RLE, demos pitting edema. He saw another doctor yesterday to determine when he will be getting his heart implant. PT-OP-E Functional Tests Start: 04/20/24 12:58 Freq: Status: Active Protocol: Document 04/20/24 12:58 NM (Rec: 04/20/24 13:49 NM [id number]) Functional Tests 30 Second Sit to Stand Test Score 10 Comments feel it in knees, use HS to stabilize, poor eccentric Five Times Sit to Stand Test Score 13 sec Comments use HS to stabilize, poor eccentric Tinetti Balance and Gait Assessment Balance Score 8 Gait Score 7 Composite Score 15/28 Other Forward Trunk Flexion Test Name of Test measured fingers to floor Score 9 Comment reproduces pain, tight hamstrings PT-OP-F Manual Assessment Start: 04/20/24 12:58 Freq: Status: Active Protocol: Document 04/20/24 12:58 NM (Rec: 04/20/24 13:49 NM [id number]) Manual Assessments Soft Tissue Assessment Soft Tissue Mobility Assessment Tight hip flexors bilaterally (+ massimo test), increased tone in paraspinals especially QL. L trunk periscapular and paraspinals are more restricted and elevated than R side Joint Mobility Assessment Joint Mobility Assessment Decreased lumbar spine and hip mobility. Hypomobility with P -A springing of lumbar spine spinous processes (not tender) and PSIS/SIJ (tender) - R>L PT-OP-G Mobility & Gait Start: 04/20/24 12:58 Freq: Status: Active Protocol: Document 04/20/24 12:58 NM (Rec: 04/20/24 16:11 NM [id number]) OP Gait Assessment Gait Gait Assistance Required: Standby Assistance Distance (Feet) 150 Assistive Devices Assistive Device Gait Belt Gait Deviations General Gait Pattern Antalgic,Decreased Feet Clearance,Flexed Trunk Factors Limiting Gait Function Factors Limiting Gait Function Decreased Activity Tolerance, Decreased Sensation,Decreased Strength,Limited Range of Motion,Pain,Poor Balance Comments Gait Comments uses AD normally Stair Climbing Evaluation Evaluation Level of Assist On Stairs Contact Guard Assistance Devices Stair Climbing Assistive Devices Left Railing,Right Railing Technique/Endurance Stair Climbing Direction Ascend and Descend Stair Climbing Technique Step Over Step Number of Steps Climbed 4 Stair Climbing Set # Repetitions (reps) 1 Comments Stair Climbing Comments Poor trunk and knee stability with descent. Reproduces knee pain PT-OP-J Posture/Palpation/Skin Start: 04/20/24 12:58 Freq: Status: Active Protocol: Document 04/20/24 12:58 NM (Rec: 04/20/24 16:11 NM [id number]) Posture Evaluation Position Standing Head/C-Spine Posture Forward Head T-Spine Posture Increased Kyphosis L-Spine Posture Increased Lordosis Shoulder Posture (L) Rounded,(R) Rounded,(L) Forward,(L) Elevated Pelvis Posture Anteriorly Tilted Weight Distribution Balanced Hip Posture (L) Externally Rotated,(R) Externally Rotated Knee Posture (L) Genu Valgus,(R) Genu Valgus Ankle/Foot Posture (L) Pronated,(R) Pronated Palpation Assessment Location B knees Palpation Details Tenderness along medial and lateral knees, patellar tendon Tenderness along R quad Tightness of B quads lumbar spine Palpation Details Tenderness along PSIS/SIJ, R>L , QL/paraspinals No midline tenderness. Tenderness lateral to spinous processes. PT-OP-K Range of Motion Start: 04/20/24 12:58 Freq: Status: Active Protocol: Document 04/20/24 12:58 NM (Rec: 04/20/24 13:49 NM [id number]) Lumbar Spine Range of Motion Lumbar Spine Active Percentage Flexion 75 Extension 50 Rotation Left 100 Rotation Right 100 Lateral Flexion Left 75 Lateral Flexion Right 50 Comments Pain reproduced with flex, B lateral flex Hip Goniometric Range of Motion Hip Right Internal Rotation 10 External Rotation 30 Left Internal Rotation 10 External Rotation 20 Knee Goniometric Range of Motion Knee Right Flexion Active (degrees) 128 Extension Active (degrees) 0 Left Flexion Active (degrees) 130 Extension Active (degrees) 0 PT-OP-L Special Tests Start: 04/20/24 12:58 Freq: Status: Active Protocol: Document 04/20/24 12:58 NM (Rec: 04/20/24 16:11 NM [id number]) Special Tests Lumbar Spine Special Tests Slump Test Results - Comments B Straight Leg Raise Test Results - Comments B Vega/Quadrant Test Results + Comments R PT-OP-M Strength Start: 04/20/24 12:58 Freq: Status: Active Protocol: Document 05/26/24 13:53 NM (Rec: 05/26/24 14:52 NM [id number]) Hip Strength Hip Manual Muscle Testing Left Flexion (L2) 4- Good- Extension (S1) 3 Fair Abduction 4- Good- External Rotation 4- Good- Internal Rotation 3 Fair Comments 05/26/24: 4/5 MMT Right Flexion (L2) 4- Good- Extension (S1) 3 Fair Abduction 4- Good- External Rotation 4- Good- Internal Rotation 3 Fair Comments 05/26/24: 4/5 MMT Knee Strength Knee Manual Muscle Testing Right Flexion (S2) 4- Good- Extension (L3) 4- Good- Comments 05/26/24: 4/5 MMT Left Flexion (S2) 4- Good- Extension (L3) 4- Good- Comments 05/26/24: 4/5 MMT PT-OP-Q Treatments Start: 04/20/24 12:58 Freq: Status: Active Protocol: Document 06/06/24 08:21 NM (Rec: 06/06/24 09:03 NM [id number]) Gym Equipment Shuttle Recovery B squat Details cued TKE w/o locking knees, ball btwn legs for alignment Resistance 50# (2 navy) > 83# (3 navy) Reps/Time 10, 10 (L knee pain at end of 2nd set) Therapeutic Exercises Standing Exercises step up Standing Exercise Name 1. fwd step up, 2. lateral step up Side bilateral Equipment Used 4 step, 1 hand support for balance Reps/Minutes 10 ea leg fwd, 10 ea leg lateral Comments cued glute control, hip hinge, less knee over toe; L more challenging hip extension Side bilateral Resistance level 3 band at ankles Equipment Used 1 hand support on //bar Reps/Minutes 2x10 ea Comments cued limit trunk flexion, improved w/ reps hip flexion Standing Exercise Name marching Side bilateral Resistance level 1 band at feet Equipment Used 1 hand support for balance Reps/Minutes 2x10 ea leg Comments cued wider KUSHAL; alternating Neuro Re-Education Treatment Balance Activities stepping Equipment close CGA Reps/Duration 4x10ft Comments 1. carioca 2. retro stepping challenging with L stance tandem stepping Equipment 2x10 ft Reps/Duration close CGA, hands hover above bar Comments challenging with prn hand suport to steady SLS Details kicking ball Equipment close sba Reps/Duration 10 ea Comments more challenged with L stance but no LOB PT-OP-T Assessment and Plan Start: 04/20/24 12:58 Freq: Status: Active Protocol: Document 06/06/24 08:21 NM (Rec: 06/06/24 09:03 NM [id number]) Physical Therapy Assessment Goals Six Impairment stairs [facility] Goal (LTG) Pt will report no increase in baseline pain or poor trunk stability when performing at least 8 stairs with or without hand rail in order to demonstrate improved activity tolerance, pain management, and QOL LTG Duration 12 weeks Five Impairment balance Short Term Goal (STG) Pt will increase Tinetti score >18/28 in order to move from high fall risk to moderate fall risk during gait and stairs 05/26/24: STG Duration 6 weeks [employer] Goal (LTG) Pt will increase Tinetti score >23/28 in order to move from high fall risk to moderate fall risk during gait and stairs LTG Duration 12 weeks Four Impairment strength Short Term Goal (STG) Pt will improve B knee flexion and extension strength to at least 4/5 in order to demonstrate improved stability on stairs and with gait 05/26/24: 4/5 STG Duration 6 weeks MET [facility] Goal (LTG) Pt will improve B knee flexion and extension strength to at least 4+/5 in order to demonstrate improved stability on stairs and with gait LTG Duration 12 weeks Three Impairment strength Short Term Goal (STG) Pt will increase B hip extension and abduction strength to at least 4-/5 in order to demonstrate improved hip strength for gait, balance , and to decrease fall risk 05/26/24: 4/5 STG Duration 6 weeks MET [facility] Goal (LTG) Pt will increase B hip extension and abduction strength to at least 4+/5 in order to demonstrate improved hip strength for gait, balance , and to decrease fall risk LTG Duration 12 weeks Two Impairment STS Short Term Goal (STG) Pt will be able to perform 5x STS without compensation or increase in baseline pain in order to demonstrate improved BLE strength for transfers and gait 05/26/24: 5 STS w/ annoying pain in lateral hip which is reduced with band at thighs for hip abd STG Duration 6 weeks [employer] Goal (LTG) Pt will be able to perform at least 11 sit to engineering drawings checker 30 seconds (age related norm) without increase in baseline pain in order to demonstrate improved BLE strength for transfers and gait LTG Duration 12 weeks One Impairment ambulation Short Term Goal (STG) Pt will report that he is able to ambulate community distance with or without LRAD without increase in baseline pain in order to demonstrate improved symptom management and social participation 05/26/24: pt reports that he can take the dog 2 blocks ea direction w/o any pain, which is more than he used to be able to do since starting PT STG Duration 6 weeks [employer] Goal (LTG) Pt will report that he is able to ambulate any distance with or without LRAD without increase in baseline pain in order to demonstrate improved symptom management and social participation LTG Duration 12 weeks Assessment Summary Assessment Pt tolerated session well. Continued with hip and posterior chain strengthening, in addition to balance training. Cued moderately during hip flexion to maintain neutral alignment vs positioning in hip ER. Progressed band level with hip extension, moving down to ankles. Able to perform 4 lateral step up on LLE with difficulty; states no increased pain but demos compensations with RLE and trunk. Trialed leg press today with B squat; pt able to perform 2 sets, but reports L knee pain at end of 2nd set. Continued with balance training using stepping in multiple directions outside KUSHAL. Challenged with narrow stepping, requiring close CGA. Pt would benefit from skilled PT for progressive BLE and trunk strengthening, in addition to flexibility and balance training in order to improve symptom management and activity tolerance. Physical Therapy Plan Frequency and Duration Frequency of Treatment 2x/Week Duration of treatment (weeks) 12 Plan of Care Start Date 04/20/24 Plan of Care End Date 07/14/24 Therapeutic Interventions Therapeutic Interventions Balance Training,Gait Training ,Home Exercise Program,Joint Mobilizations,Manual Therapy, Neuromuscular Re-education, Orthotic/Prosthetic Management ,Patient/Caregiver Education, Self-Care/Home Management, Sensory Integration,Soft Tissue Mobilization,Taping, Therapeutic Activities, Therapeutic Exercises Modalities Cold Pack/Ice Massage,Hot Packs Other Therapeutic Interventions pelvic realignment manual traction Next Visit Focus/Plan Next Visit Plan monitor vitals during exercise, hx of spondylolisthesis Ask how MD appt went and if pt heard back about procedure date core strength (pallof walkout, press, micronesian ball tammy- bugs, modified plank on counter or bird dog); hip 3 way, squat with band, step up 4 with glute approach vs leg press. Balance no lumbar vertebral mobilizations
--- NOTE | 2024-06-09 12:28 | PT.OTN ---
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) Weakness (06/09/24) Physical Therapy Treatment Note PT-OP-A Visit Information Start: 04/20/24 12:58 Freq: Status: Active Protocol: Document 06/09/24 08:04 AB (Rec: 06/09/24 09:03 AB [id number]) Out-Patient Physical Therapy Visit Information Visit Information Visit Type Treatment Note Visit Note [email or web address] Access Code: [email or web address] Visit Start Time 08:16 Visit Stop Time 09:01 Visit Number 14 Number of NURSE COMPANION Visits 1 Evaluation Information Evaluation Date 04/20/24 Precautions Precautions Fall risk, hx of heart attack and triple bypass monitor vitals with activity , fall risk PT-OP-B Current Condition Start: 04/20/24 12:58 Freq: Status: Active Protocol: Document 04/20/24 12:58 NM (Rec: 04/20/24 13:49 NM [id number]) Current Condition History of Current Condition Current Complaints pain, mobility, strength, balance History of Current Condition Pt reports back pain and B knee pain. He also has a fat pad in his back. Pain is bilateral and along the spine. Reports he also has R thigh pain, which limits his mobility. He sleeps on his L side primarily but has L shoulder pain too. His back pain is the primary limit for his mobility, no DANIAL but chronic. Has had several injections for pain recently and gets weekly massage, which helps. He reports due to his knees that he has difficulty with walking (speed and distance), transfers from a chair (leg pain and weakness), floor transfer (uses hands), stairs. He has had the R knee replaced. Uses cane for gait but did not bring today. He has fallen 3x times backward when he was standing, so the cane helps keep him from falling backward. He just renovated his home to one story, but still has stairs in his house. 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 Currently, pt does an exercise routine and cardiac rehab 2- 3x/wk, but no other exercise. Wants to go back on family walks again for any distance but has not since before felicita Prior Treatments and Tests previous PT at different clinic Treatment Goals Patient/Caregiver Goals walk better, less back pain Prior Functional Status Baseline Function- Recreation/Hobbies exercise routine - 100 toe touches Baseline Function- Other massage 1x/wk Current Functional Impairments (Reported) Functional Limitations- Mobility/Gait unable to participate in family walks Functional Limitations- Recreation/ pain with exercise, toe Hobbies touches row club 3x/wk (does the talking) PT-OP-C Subjective Start: 04/20/24 12:58 Freq: Status: Active Protocol: Document 06/09/24 08:04 AB (Rec: 06/09/24 09:03 AB [id number]) OP-PT Subjective Patient Comments Patient Comments Patient reports he saw the MD and the water pill has been increased. Patient reports he is still waiting for a date for his procedure. Patient reports getting leg in and out of car is getting easier, no trouble with right LE, left is now fine. Patient reports difficulty getting on tractor. BP seated left UE start of session, 159/81 HR 45 PT-OP-E Functional Tests Start: 04/20/24 12:58 Freq: Status: Active Protocol: Document 04/20/24 12:58 NM (Rec: 04/20/24 13:49 NM [id number]) Functional Tests 30 Second Sit to Stand Test Score 10 Comments feel it in knees, use HS to stabilize, poor eccentric Five Times Sit to Stand Test Score 13 sec Comments use HS to stabilize, poor eccentric Tinetti Balance and Gait Assessment Balance Score 8 Gait Score 7 Composite Score 15/28 Other Forward Trunk Flexion Test Name of Test measured fingers to floor Score 9 Comment reproduces pain, tight hamstrings PT-OP-F Manual Assessment Start: 04/20/24 12:58 Freq: Status: Active Protocol: Document 04/20/24 12:58 NM (Rec: 04/20/24 13:49 NM [id number]) Manual Assessments Soft Tissue Assessment Soft Tissue Mobility Assessment Tight hip flexors bilaterally (+ massimo test), increased tone in paraspinals especially QL. L trunk periscapular and paraspinals are more restricted and elevated than R side Joint Mobility Assessment Joint Mobility Assessment Decreased lumbar spine and hip mobility. Hypomobility with P -A springing of lumbar spine spinous processes (not tender) and PSIS/SIJ (tender) - R>L PT-OP-G Mobility & Gait Start: 04/20/24 12:58 Freq: Status: Active Protocol: Document 04/20/24 12:58 NM (Rec: 04/20/24 16:11 NM [id number]) OP Gait Assessment Gait Gait Assistance Required: Standby Assistance Distance (Feet) 150 Assistive Devices Assistive Device Gait Belt Gait Deviations General Gait Pattern Antalgic,Decreased Feet Clearance,Flexed Trunk Factors Limiting Gait Function Factors Limiting Gait Function Decreased Activity Tolerance, Decreased Sensation,Decreased Strength,Limited Range of Motion,Pain,Poor Balance Comments Gait Comments uses AD normally Stair Climbing Evaluation Evaluation Level of Assist On Stairs Contact Guard Assistance Devices Stair Climbing Assistive Devices Left Railing,Right Railing Technique/Endurance Stair Climbing Direction Ascend and Descend Stair Climbing Technique Step Over Step Number of Steps Climbed 4 Stair Climbing Set # Repetitions (reps) 1 Comments Stair Climbing Comments Poor trunk and knee stability with descent. Reproduces knee pain PT-OP-J Posture/Palpation/Skin Start: 04/20/24 12:58 Freq: Status: Active Protocol: Document 04/20/24 12:58 NM (Rec: 04/20/24 16:11 NM [id number]) Posture Evaluation Position Standing Head/C-Spine Posture Forward Head T-Spine Posture Increased Kyphosis L-Spine Posture Increased Lordosis Shoulder Posture (L) Rounded,(R) Rounded,(L) Forward,(L) Elevated Pelvis Posture Anteriorly Tilted Weight Distribution Balanced Hip Posture (L) Externally Rotated,(R) Externally Rotated Knee Posture (L) Genu Valgus,(R) Genu Valgus Ankle/Foot Posture (L) Pronated,(R) Pronated Palpation Assessment Location B knees Palpation Details Tenderness along medial and lateral knees, patellar tendon Tenderness along R quad Tightness of B quads lumbar spine Palpation Details Tenderness along PSIS/SIJ, R>L , QL/paraspinals No midline tenderness. Tenderness lateral to spinous processes. PT-OP-K Range of Motion Start: 04/20/24 12:58 Freq: Status: Active Protocol: Document 04/20/24 12:58 NM (Rec: 04/20/24 13:49 NM [id number]) Lumbar Spine Range of Motion Lumbar Spine Active Percentage Flexion 75 Extension 50 Rotation Left 100 Rotation Right 100 Lateral Flexion Left 75 Lateral Flexion Right 50 Comments Pain reproduced with flex, B lateral flex Hip Goniometric Range of Motion Hip Right Internal Rotation 10 External Rotation 30 Left Internal Rotation 10 External Rotation 20 Knee Goniometric Range of Motion Knee Right Flexion Active (degrees) 128 Extension Active (degrees) 0 Left Flexion Active (degrees) 130 Extension Active (degrees) 0 PT-OP-L Special Tests Start: 04/20/24 12:58 Freq: Status: Active Protocol: Document 04/20/24 12:58 NM (Rec: 04/20/24 16:11 NM [id number]) Special Tests Lumbar Spine Special Tests Slump Test Results - Comments B Straight Leg Raise Test Results - Comments B Vega/Quadrant Test Results + Comments R PT-OP-M Strength Start: 04/20/24 12:58 Freq: Status: Active Protocol: Document 05/26/24 13:53 NM (Rec: 05/26/24 14:52 NM [id number]) Hip Strength Hip Manual Muscle Testing Left Flexion (L2) 4- Good- Extension (S1) 3 Fair Abduction 4- Good- External Rotation 4- Good- Internal Rotation 3 Fair Comments 05/26/24: 4/5 MMT Right Flexion (L2) 4- Good- Extension (S1) 3 Fair Abduction 4- Good- External Rotation 4- Good- Internal Rotation 3 Fair Comments 05/26/24: 4/5 MMT Knee Strength Knee Manual Muscle Testing Right Flexion (S2) 4- Good- Extension (L3) 4- Good- Comments 05/26/24: 4/5 MMT Left Flexion (S2) 4- Good- Extension (L3) 4- Good- Comments 05/26/24: 4/5 MMT PT-OP-Q Treatments Start: 04/20/24 12:58 Freq: Status: Active Protocol: Document 06/09/24 08:04 AB (Rec: 06/09/24 09:03 AB [id number]) Gym Equipment Shuttle Balance red Details normal KUSHAL and stagger stance Reps/Duration 3 min Therapeutic Exercises Sitting Exercises hip flexion Sitting Exercise Name for car transfers: march Side bilateral Resistance 2# ankle weight Reps/Minutes x10 abduction Sitting Exercise Name isometric hold Side bilateral Resistance level 3 band around thighs Reps/Minutes 60 hold X 1 then 2X15 without hold LAQ Side bilateral Resistance 2# ankle weight Reps/Minutes 10x with 5 hold Comments cued TKE; improved form Standing Exercises calf raise Side bilateral Reps/Minutes X10 Neuro Re-Education Treatment Balance Activities therapads Details 1. stepping 4X 2 1. Stagger stance Equipment 4 pads Comments in stagger stance, eyes closed , visual scanning, head turns, CGA hands above bars tandem stepping Equipment 4x10 ft Reps/Duration close CGA, hands hover above bar hurdles Reps/Duration 10 feet X 6 Comments CGA hands above the bars mat with objects under Reps/Duration 1 mat X 4 Comments without device CGA PT-OP-T Assessment and Plan Start: 04/20/24 12:58 Freq: Status: Active Protocol: Document 06/09/24 08:04 AB (Rec: 06/09/24 09:03 AB [id number]) Physical Therapy Assessment Goals Six Impairment stairs Detention Goal (LTG) Pt will report no increase in baseline pain or poor trunk stability when performing at least 8 stairs with or without hand rail in order to demonstrate improved activity tolerance, pain management, and QOL LTG Duration 12 weeks Five Impairment balance Short Term Goal (STG) Pt will increase Tinetti score >18/28 in order to move from high fall risk to moderate fall risk during gait and stairs 05/26/24: STG Duration 6 weeks MET Spider Assembler Goal (LTG) Pt will increase Tinetti score >23/28 in order to move from high fall risk to moderate fall risk during gait and stairs LTG Duration 12 weeks Four Impairment strength Short Term Goal (STG) Pt will improve B knee flexion and extension strength to at least 4/5 in order to demonstrate improved stability on stairs and with gait 05/26/24: 4/5 STG Duration 6 weeks MET Detention Goal (LTG) Pt will improve B knee flexion and extension strength to at least 4+/5 in order to demonstrate improved stability on stairs and with gait LTG Duration 12 weeks Three Impairment strength Short Term Goal (STG) Pt will increase B hip extension and abduction strength to at least 4-/5 in order to demonstrate improved hip strength for gait, balance , and to decrease fall risk 05/26/24: 4/5 STG Duration 6 weeks MET Detention Goal (LTG) Pt will increase B hip extension and abduction strength to at least 4+/5 in order to demonstrate improved hip strength for gait, balance , and to decrease fall risk LTG Duration 12 weeks Two Impairment STS Short Term Goal (STG) Pt will be able to perform 5x STS without compensation or increase in baseline pain in order to demonstrate improved BLE strength for transfers and gait 05/26/24: 5 STS w/ annoying pain in lateral hip which is reduced with band at thighs for hip abd STG Duration 6 weeks MET Detention Goal (LTG) Pt will be able to perform at least 11 sit to accounting manager assistant controller 30 seconds (age related norm) without increase in baseline pain in order to demonstrate improved BLE strength for transfers and gait LTG Duration 12 weeks One Impairment ambulation Short Term Goal (STG) Pt will report that he is able to ambulate community distance with or without LRAD without increase in baseline pain in order to demonstrate improved symptom management and social participation 05/26/24: pt reports that he can take the dog 2 blocks ea direction w/o any pain, which is more than he used to be able to do since starting PT STG Duration 6 weeks MET Spider Assembler Goal (LTG) Pt will report that he is able to ambulate any distance with or without LRAD without increase in baseline pain in order to demonstrate improved symptom management and social participation LTG Duration 12 weeks Assessment Summary Assessment Post seated exercise BP 146/76 HR 52 BPM left UE, end of session post balance exercises seated BP left UE 153/74 HR 44. Patient reports having no pain end of session. Physical Therapy Plan Frequency and Duration Frequency of Treatment 2x/Week Duration of treatment (weeks) 12 Plan of Care Start Date 04/20/24 Plan of Care End Date 07/14/24 Next Visit Focus/Plan Next Note Type Treatment Note Next Visit Plan monitor vitals during exercise, hx of spondylolisthesis core strength (pallof walkout, press, macedonian ball tammy- bugs, modified plank on counter or bird dog); hip 3 way, squat with band, step up 4 with glute approach vs leg press. Balance no lumbar vertebral mobilizations
--- NOTE | 2024-06-13 13:26 | PT.OTN ---
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) Weakness (06/13/24) Physical Therapy Treatment Note PT-OP-A Visit Information Start: 04/20/24 12:58 Freq: Status: Active Protocol: Document 06/13/24 08:18 NM (Rec: 06/13/24 09:03 NM [id number]) Out-Patient Physical Therapy Visit Information Visit Information Visit Type Treatment Note Visit Start Time 08:18 Visit Stop Time 08:58 Visit Number 15 PT-OP-B Current Condition Start: 04/20/24 12:58 Freq: Status: Active Protocol: Document 04/20/24 12:58 NM (Rec: 04/20/24 13:49 NM [id number]) Current Condition History of Current Condition Current Complaints pain, mobility, strength, balance History of Current Condition Pt reports back pain and B knee pain. He also has a fat pad in his back. Pain is bilateral and along the spine. Reports he also has R thigh pain, which limits his mobility. He sleeps on his L side primarily but has L shoulder pain too. His back pain is the primary limit for his mobility, no DANIAL but chronic. Has had several injections for pain recently and gets weekly massage, which helps. He reports due to his knees that he has difficulty with walking (speed and distance), transfers from a chair (leg pain and weakness), floor transfer (uses hands), stairs. He has had the R knee replaced. Uses cane for gait but did not bring today. He has fallen 3x times backward when he was standing, so the cane helps keep him from falling backward. He just renovated his home to one story, but still has stairs in his house. 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 Currently, pt does an exercise routine and cardiac rehab 2- 3x/wk, but no other exercise. Wants to go back on family walks again for any distance but has not since before covid Prior Treatments and Tests previous PT at different clinic Treatment Goals Patient/Caregiver Goals walk better, less back pain Prior Functional Status Baseline Function- Recreation/Hobbies exercise routine - 100 toe touches Baseline Function- Other massage 1x/wk Current Functional Impairments (Reported) Functional Limitations- Mobility/Gait unable to participate in family walks Functional Limitations- Recreation/ pain with exercise, toe Hobbies touches row club 3x/wk (does the talking) PT-OP-C Subjective Start: 04/20/24 12:58 Freq: Status: Active Protocol: Document 06/13/24 08:18 NM (Rec: 06/13/24 09:03 NM [id number]) OP-PT Subjective Patient Comments Patient Comments Pt reports doing really well today. Wearing compression socks. Swelling has gone down bilaterally in his legs. Pt had a good birthday. PT-OP-E Functional Tests Start: 04/20/24 12:58 Freq: Status: Active Protocol: Document 04/20/24 12:58 NM (Rec: 04/20/24 13:49 NM [id number]) Functional Tests 30 Second Sit to Stand Test Score 10 Comments feel it in knees, use HS to stabilize, poor eccentric Five Times Sit to Stand Test Score 13 sec Comments use HS to stabilize, poor eccentric Tinetti Balance and Gait Assessment Balance Score 8 Gait Score 7 Composite Score 15/28 Other Forward Trunk Flexion Test Name of Test measured fingers to floor Score 9 Comment reproduces pain, tight hamstrings PT-OP-F Manual Assessment Start: 04/20/24 12:58 Freq: Status: Active Protocol: Document 04/20/24 12:58 NM (Rec: 04/20/24 13:49 NM [id number]) Manual Assessments Soft Tissue Assessment Soft Tissue Mobility Assessment Tight hip flexors bilaterally (+ massimo test), increased tone in paraspinals especially QL. L trunk periscapular and paraspinals are more restricted and elevated than R side Joint Mobility Assessment Joint Mobility Assessment Decreased lumbar spine and hip mobility. Hypomobility with P -A springing of lumbar spine spinous processes (not tender) and PSIS/SIJ (tender) - R>L PT-OP-G Mobility & Gait Start: 04/20/24 12:58 Freq: Status: Active Protocol: Document 04/20/24 12:58 NM (Rec: 04/20/24 16:11 NM [id number]) OP Gait Assessment Gait Gait Assistance Required: Standby Assistance Distance (Feet) 150 Assistive Devices Assistive Device Gait Belt Gait Deviations General Gait Pattern Antalgic,Decreased Feet Clearance,Flexed Trunk Factors Limiting Gait Function Factors Limiting Gait Function Decreased Activity Tolerance, Decreased Sensation,Decreased Strength,Limited Range of Motion,Pain,Poor Balance Comments Gait Comments uses AD normally Stair Climbing Evaluation Evaluation Level of Assist On Stairs Contact Guard Assistance Devices Stair Climbing Assistive Devices Left Railing,Right Railing Technique/Endurance Stair Climbing Direction Ascend and Descend Stair Climbing Technique Step Over Step Number of Steps Climbed 4 Stair Climbing Set # Repetitions (reps) 1 Comments Stair Climbing Comments Poor trunk and knee stability with descent. Reproduces knee pain PT-OP-J Posture/Palpation/Skin Start: 04/20/24 12:58 Freq: Status: Active Protocol: Document 04/20/24 12:58 NM (Rec: 04/20/24 16:11 NM [id number]) Posture Evaluation Position Standing Head/C-Spine Posture Forward Head T-Spine Posture Increased Kyphosis L-Spine Posture Increased Lordosis Shoulder Posture (L) Rounded,(R) Rounded,(L) Forward,(L) Elevated Pelvis Posture Anteriorly Tilted Weight Distribution Balanced Hip Posture (L) Externally Rotated,(R) Externally Rotated Knee Posture (L) Genu Valgus,(R) Genu Valgus Ankle/Foot Posture (L) Pronated,(R) Pronated Palpation Assessment Location B knees Palpation Details Tenderness along medial and lateral knees, patellar tendon Tenderness along R quad Tightness of B quads lumbar spine Palpation Details Tenderness along PSIS/SIJ, R>L , QL/paraspinals No midline tenderness. Tenderness lateral to spinous processes. PT-OP-K Range of Motion Start: 04/20/24 12:58 Freq: Status: Active Protocol: Document 04/20/24 12:58 NM (Rec: 04/20/24 13:49 NM [id number]) Lumbar Spine Range of Motion Lumbar Spine Active Percentage Flexion 75 Extension 50 Rotation Left 100 Rotation Right 100 Lateral Flexion Left 75 Lateral Flexion Right 50 Comments Pain reproduced with flex, B lateral flex Hip Goniometric Range of Motion Hip Right Internal Rotation 10 External Rotation 30 Left Internal Rotation 10 External Rotation 20 Knee Goniometric Range of Motion Knee Right Flexion Active (degrees) 128 Extension Active (degrees) 0 Left Flexion Active (degrees) 130 Extension Active (degrees) 0 PT-OP-L Special Tests Start: 04/20/24 12:58 Freq: Status: Active Protocol: Document 04/20/24 12:58 NM (Rec: 04/20/24 16:11 NM [id number]) Special Tests Lumbar Spine Special Tests Slump Test Results - Comments B Straight Leg Raise Test Results - Comments B Vega/Quadrant Test Results + Comments R PT-OP-M Strength Start: 04/20/24 12:58 Freq: Status: Active Protocol: Document 05/26/24 13:53 NM (Rec: 05/26/24 14:52 NM [id number]) Hip Strength Hip Manual Muscle Testing Left Flexion (L2) 4- Good- Extension (S1) 3 Fair Abduction 4- Good- External Rotation 4- Good- Internal Rotation 3 Fair Comments 05/26/24: 4/5 MMT Right Flexion (L2) 4- Good- Extension (S1) 3 Fair Abduction 4- Good- External Rotation 4- Good- Internal Rotation 3 Fair Comments 05/26/24: 4/5 MMT Knee Strength Knee Manual Muscle Testing Right Flexion (S2) 4- Good- Extension (L3) 4- Good- Comments 05/26/24: 4/5 MMT Left Flexion (S2) 4- Good- Extension (L3) 4- Good- Comments 05/26/24: 4/5 MMT PT-OP-Q Treatments Start: 04/20/24 12:58 Freq: Status: Active Protocol: Document 06/13/24 08:18 NM (Rec: 06/13/24 09:03 NM [id number]) Therapeutic Exercises Sitting Exercises sit to stand Side bilateral Resistance level 2 band at thighs Equipment Used standard mesh chair Reps/Minutes 10 Comments arms across chest; 1 LOB but able to correct in //bars w/ hand support Standing Exercises carries Standing Exercise Name suitcase carry: 1. unilateral, 2. bilateral Side bilateral Resistance 5# db Reps/Minutes 2x20 ft ea Comments cued upright posture; CGA to steady prn hip 3 way Standing Exercise Name flex, abd, ext w/ slider Side bilateral Resistance level 2 band at ankles Reps/Minutes 10 ea leg, ea direction Comments no pain; cued upright trunk step up Standing Exercise Name fwd step up Side bilateral Equipment Used 4 Reps/Minutes 5 ea leg Comments L knee pain pallof Standing Exercise Name with OH press Side bilateral Resistance level 2 > level 3 band Reps/Minutes 2x10 ea Neuro Re-Education Treatment Balance Activities shuttle balance Surface unstable Equipment red Reps/Duration 2 min Comments cued to limit post weight shift therapads Comments On large blue cushion: 1. fwd stepping, 10 ea leg 2. lateral stepping, 10 ea leg Requires increased time, no hand support but visually dependent; cued looking up, foot clearance On airex pad in staggered stance: 30 sec ea, ea leg 1. vertical head turns 2. horizontal head turns 3. eyes closed PT-OP-T Assessment and Plan Start: 04/20/24 12:58 Freq: Status: Active Protocol: Document 06/13/24 08:18 NM (Rec: 06/13/24 09:03 NM [id number]) Physical Therapy Assessment Goals Six Impairment stairs Jail Goal (LTG) Pt will report no increase in baseline pain or poor trunk stability when performing at least 8 stairs with or without hand rail in order to demonstrate improved activity tolerance, pain management, and QOL LTG Duration 12 weeks Five Impairment balance Short Term Goal (STG) Pt will increase Tinetti score >18/28 in order to move from high fall risk to moderate fall risk during gait and stairs 05/26/24: STG Duration 6 weeks [facility] Goal (LTG) Pt will increase Tinetti score >23/28 in order to move from high fall risk to moderate fall risk during gait and stairs LTG Duration 12 weeks Four Impairment strength Short Term Goal (STG) Pt will improve B knee flexion and extension strength to at least 4/5 in order to demonstrate improved stability on stairs and with gait 05/26/24: 4/5 STG Duration 6 weeks [facility] Language Asst Goal (LTG) Pt will improve B knee flexion and extension strength to at least 4+/5 in order to demonstrate improved stability on stairs and with gait LTG Duration 12 weeks Three Impairment strength Short Term Goal (STG) Pt will increase B hip extension and abduction strength to at least 4-/5 in order to demonstrate improved hip strength for gait, balance , and to decrease fall risk 05/26/24: 4/5 STG Duration 6 weeks [facility] Goal (LTG) Pt will increase B hip extension and abduction strength to at least 4+/5 in order to demonstrate improved hip strength for gait, balance , and to decrease fall risk LTG Duration 12 weeks Two Impairment STS Short Term Goal (STG) Pt will be able to perform 5x STS without compensation or increase in baseline pain in order to demonstrate improved BLE strength for transfers and gait 05/26/24: 5 STS w/ annoying pain in lateral hip which is reduced with band at thighs for hip abd STG Duration 6 weeks [facility] Language Asst Goal (LTG) Pt will be able to perform at least 11 sit to sack sewer machine 30 seconds (age related norm) without increase in baseline pain in order to demonstrate improved BLE strength for transfers and gait LTG Duration 12 weeks One Impairment ambulation Short Term Goal (STG) Pt will report that he is able to ambulate community distance with or without LRAD without increase in baseline pain in order to demonstrate improved symptom management and social participation 05/26/24: pt reports that he can take the dog 2 blocks ea direction w/o any pain, which is more than he used to be able to do since starting PT STG Duration 6 weeks [facility] Goal (LTG) Pt will report that he is able to ambulate any distance with or without LRAD without increase in baseline pain in order to demonstrate improved symptom management and social participation LTG Duration 12 weeks Assessment Summary Assessment Pt tolerated session well. Improved stability on unstable surfaces and when stepping onto step. Pt does have 1 LOB but able to correct in //bars when stepping up on unstable surface. Continues to have discomfort in L knee when stepping up, but able to tolerate 4 step up better than in last session. Pt continues to be challenged with eccentric control during STS. However, less discomfort for knee than squats. Pt able to progress to both carries and pallof overhead press for core/trunk strength. Pt presents without spc today and PT strongly recommended that pt continue to use spc for balance during gait. He would benefit from skilled PT for progressive BLE strengthening and balance training to reduce fall risk. Physical Therapy Plan Frequency and Duration Frequency of Treatment 2x/Week Duration of treatment (weeks) 12 Plan of Care Start Date 04/20/24 Plan of Care End Date 07/14/24 Therapeutic Interventions Therapeutic Interventions Balance Training,Gait Training ,Home Exercise Program,Joint Mobilizations,Manual Therapy, Neuromuscular Re-education, Orthotic/Prosthetic Management ,Patient/Caregiver Education, Self-Care/Home Management, Sensory Integration,Soft Tissue Mobilization,Taping, Therapeutic Activities, Therapeutic Exercises Modalities Cold Pack/Ice Massage,Hot Packs Other Therapeutic Interventions pelvic realignment manual traction Next Visit Focus/Plan Next Note Type Treatment Note Next Visit Plan monitor vitals during exercise, hx of spondylolisthesis step up, counter bird dog, pallof over head core strength (pallof walkout, press, salvadorean ball tammy- bugs, modified plank on counter or bird dog); hip 3 way, squat with band, step up 4 with glute approach vs leg press. Balance no lumbar vertebral mobilizations
--- NOTE | 2024-06-16 12:52 | PT.OTN ---
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) Weakness (06/16/24) Physical Therapy Treatment Note PT-OP-A Visit Information Start: 04/20/24 12:58 Freq: Status: Active Protocol: Document 06/16/24 08:06 AB (Rec: 06/16/24 09:03 AB [id number]) Out-Patient Physical Therapy Visit Information Visit Information Visit Type Treatment Note Visit Note [email or web address] Access Code: [email or web address] Visit Start Time 08:17 Visit Stop Time 09:00 Visit Number 16 Number of BASEBALL HAND SEWER Visits 1 Evaluation Information Evaluation Date 04/20/24 Precautions Precautions Fall risk, hx of heart attack and triple bypass monitor vitals with activity , fall risk PT-OP-B Current Condition Start: 04/20/24 12:58 Freq: Status: Active Protocol: Document 04/20/24 12:58 NM (Rec: 04/20/24 13:49 NM [id number]) Current Condition History of Current Condition Current Complaints pain, mobility, strength, balance History of Current Condition Pt reports back pain and B knee pain. He also has a fat pad in his back. Pain is bilateral and along the spine. Reports he also has R thigh pain, which limits his mobility. He sleeps on his L side primarily but has L shoulder pain too. His back pain is the primary limit for his mobility, no DANIAL but chronic. Has had several injections for pain recently and gets weekly massage, which helps. He reports due to his knees that he has difficulty with walking (speed and distance), transfers from a chair (leg pain and weakness), floor transfer (uses hands), stairs. He has had the R knee replaced. Uses cane for gait but did not bring today. He has fallen 3x times backward when he was standing, so the cane helps keep him from falling backward. He just renovated his home to one story, but still has stairs in his house. 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 Currently, pt does an exercise routine and cardiac rehab 2- 3x/wk, but no other exercise. Wants to go back on family walks again for any distance but has not since before felicita Prior Treatments and Tests previous PT at different clinic Treatment Goals Patient/Caregiver Goals walk better, less back pain Prior Functional Status Baseline Function- Recreation/Hobbies exercise routine - 100 toe touches Baseline Function- Other massage 1x/wk Current Functional Impairments (Reported) Functional Limitations- Mobility/Gait unable to participate in family walks Functional Limitations- Recreation/ pain with exercise, toe Hobbies touches row club 3x/wk (does the talking) PT-OP-C Subjective Start: 04/20/24 12:58 Freq: Status: Active Protocol: Document 06/16/24 08:06 AB (Rec: 06/16/24 09:03 AB [id number]) OP-PT Subjective Patient Comments Patient Comments 3/10 right back pain, patient comments he wants to work on the Legs. Seated BP 164/76 HR 42 BPM PT-OP-E Functional Tests Start: 04/20/24 12:58 Freq: Status: Active Protocol: Document 04/20/24 12:58 NM (Rec: 04/20/24 13:49 NM [id number]) Functional Tests 30 Second Sit to Stand Test Score 10 Comments feel it in knees, use HS to stabilize, poor eccentric Five Times Sit to Stand Test Score 13 sec Comments use HS to stabilize, poor eccentric Tinetti Balance and Gait Assessment Balance Score 8 Gait Score 7 Composite Score 15/28 Other Forward Trunk Flexion Test Name of Test measured fingers to floor Score 9 Comment reproduces pain, tight hamstrings PT-OP-F Manual Assessment Start: 04/20/24 12:58 Freq: Status: Active Protocol: Document 04/20/24 12:58 NM (Rec: 04/20/24 13:49 NM [id number]) Manual Assessments Soft Tissue Assessment Soft Tissue Mobility Assessment Tight hip flexors bilaterally (+ massimo test), increased tone in paraspinals especially QL. L trunk periscapular and paraspinals are more restricted and elevated than R side Joint Mobility Assessment Joint Mobility Assessment Decreased lumbar spine and hip mobility. Hypomobility with P -A springing of lumbar spine spinous processes (not tender) and PSIS/SIJ (tender) - R>L PT-OP-G Mobility & Gait Start: 04/20/24 12:58 Freq: Status: Active Protocol: Document 04/20/24 12:58 NM (Rec: 04/20/24 16:11 NM [id number]) OP Gait Assessment Gait Gait Assistance Required: Standby Assistance Distance (Feet) 150 Assistive Devices Assistive Device Gait Belt Gait Deviations General Gait Pattern Antalgic,Decreased Feet Clearance,Flexed Trunk Factors Limiting Gait Function Factors Limiting Gait Function Decreased Activity Tolerance, Decreased Sensation,Decreased Strength,Limited Range of Motion,Pain,Poor Balance Comments Gait Comments uses AD normally Stair Climbing Evaluation Evaluation Level of Assist On Stairs Contact Guard Assistance Devices Stair Climbing Assistive Devices Left Railing,Right Railing Technique/Endurance Stair Climbing Direction Ascend and Descend Stair Climbing Technique Step Over Step Number of Steps Climbed 4 Stair Climbing Set # Repetitions (reps) 1 Comments Stair Climbing Comments Poor trunk and knee stability with descent. Reproduces knee pain PT-OP-J Posture/Palpation/Skin Start: 04/20/24 12:58 Freq: Status: Active Protocol: Document 04/20/24 12:58 NM (Rec: 04/20/24 16:11 NM [id number]) Posture Evaluation Position Standing Head/C-Spine Posture Forward Head T-Spine Posture Increased Kyphosis L-Spine Posture Increased Lordosis Shoulder Posture (L) Rounded,(R) Rounded,(L) Forward,(L) Elevated Pelvis Posture Anteriorly Tilted Weight Distribution Balanced Hip Posture (L) Externally Rotated,(R) Externally Rotated Knee Posture (L) Genu Valgus,(R) Genu Valgus Ankle/Foot Posture (L) Pronated,(R) Pronated Palpation Assessment Location B knees Palpation Details Tenderness along medial and lateral knees, patellar tendon Tenderness along R quad Tightness of B quads lumbar spine Palpation Details Tenderness along PSIS/SIJ, R>L , QL/paraspinals No midline tenderness. Tenderness lateral to spinous processes. PT-OP-K Range of Motion Start: 04/20/24 12:58 Freq: Status: Active Protocol: Document 04/20/24 12:58 NM (Rec: 04/20/24 13:49 NM [id number]) Lumbar Spine Range of Motion Lumbar Spine Active Percentage Flexion 75 Extension 50 Rotation Left 100 Rotation Right 100 Lateral Flexion Left 75 Lateral Flexion Right 50 Comments Pain reproduced with flex, B lateral flex Hip Goniometric Range of Motion Hip Right Internal Rotation 10 External Rotation 30 Left Internal Rotation 10 External Rotation 20 Knee Goniometric Range of Motion Knee Right Flexion Active (degrees) 128 Extension Active (degrees) 0 Left Flexion Active (degrees) 130 Extension Active (degrees) 0 PT-OP-L Special Tests Start: 04/20/24 12:58 Freq: Status: Active Protocol: Document 04/20/24 12:58 NM (Rec: 04/20/24 16:11 NM [id number]) Special Tests Lumbar Spine Special Tests Slump Test Results - Comments B Straight Leg Raise Test Results - Comments B Vega/Quadrant Test Results + Comments R PT-OP-M Strength Start: 04/20/24 12:58 Freq: Status: Active Protocol: Document 05/26/24 13:53 NM (Rec: 05/26/24 14:52 NM [id number]) Hip Strength Hip Manual Muscle Testing Left Flexion (L2) 4- Good- Extension (S1) 3 Fair Abduction 4- Good- External Rotation 4- Good- Internal Rotation 3 Fair Comments 05/26/24: 4/5 MMT Right Flexion (L2) 4- Good- Extension (S1) 3 Fair Abduction 4- Good- External Rotation 4- Good- Internal Rotation 3 Fair Comments 05/26/24: 4/5 MMT Knee Strength Knee Manual Muscle Testing Right Flexion (S2) 4- Good- Extension (L3) 4- Good- Comments 05/26/24: 4/5 MMT Left Flexion (S2) 4- Good- Extension (L3) 4- Good- Comments 05/26/24: 4/5 MMT PT-OP-Q Treatments Start: 04/20/24 12:58 Freq: Status: Active Protocol: Document 06/16/24 08:06 AB (Rec: 06/16/24 09:03 AB [id number]) Manual Therapy Treatment Consent Patient gave verbal consent for manual Yes treatment Soft Tissue Mobilization glutes/piriformis/HS/calves Body Location B glute/piriformis Mobilization Type Cross-Friction,Rolling Intensity/Depth Moderate Body Position Sidelying Comments Reports tenderness along SI lumbar paraspinals Body Location B and quadratus Mobilization Type Cross-Friction,Rolling, Sustained Pressure Intensity/Depth Moderate Body Position Sidelying Manual Techniques MET for right AI left PI Type R AI, L PI Body Location R hip ext, L hip flex Reps/Duration 6 seconds X 6 for each Comments Cueing for form especially to maintain equal, submaximal contraction. Reports relief afterward Neuro Re-Education Treatment Balance Activities shuttle balance Surface unstable Equipment red Reps/Duration 2 min Comments NBOS and stagger, visual scanning and head turns CGA hurdles Reps/Duration 10 feet X 6 Comments CGA hands above the bars Tinetti Reps/Duration Comments improved stability with nudge retro stretch Details retro stepping this session Equipment 10 feet X 1 CGA SLS Details kicking ball Equipment close sba Reps/Duration 10 ea Comments more challenged with L stance but no LOB mat with objects under Reps/Duration 1 mat X 6 Comments without device CGA Also carrying cones PT-OP-T Assessment and Plan Start: 04/20/24 12:58 Freq: Status: Active Protocol: Document 06/16/24 08:06 AB (Rec: 06/16/24 09:03 AB [id number]) Physical Therapy Assessment Goals Six Impairment stairs Ash Worker Goal (LTG) Pt will report no increase in baseline pain or poor trunk stability when performing at least 8 stairs with or without hand rail in order to demonstrate improved activity tolerance, pain management, and QOL LTG Duration 12 weeks Five Impairment balance Short Term Goal (STG) Pt will increase Tinetti score >18/28 in order to move from high fall risk to moderate fall risk during gait and stairs 05/26/24: STG Duration 6 weeks MET Ash Worker Goal (LTG) Pt will increase Tinetti score >23/28 in order to move from high fall risk to moderate fall risk during gait and stairs LTG Duration 12 weeks Four Impairment strength Short Term Goal (STG) Pt will improve B knee flexion and extension strength to at least 4/5 in order to demonstrate improved stability on stairs and with gait 05/26/24: 4/5 STG Duration 6 weeks MET Ash Worker Goal (LTG) Pt will improve B knee flexion and extension strength to at least 4+/5 in order to demonstrate improved stability on stairs and with gait LTG Duration 12 weeks Three Impairment strength Short Term Goal (STG) Pt will increase B hip extension and abduction strength to at least 4-/5 in order to demonstrate improved hip strength for gait, balance , and to decrease fall risk 05/26/24: 4/5 STG Duration 6 weeks MET Skilled Nursing Goal (LTG) Pt will increase B hip extension and abduction strength to at least 4+/5 in order to demonstrate improved hip strength for gait, balance , and to decrease fall risk LTG Duration 12 weeks Two Impairment STS Short Term Goal (STG) Pt will be able to perform 5x STS without compensation or increase in baseline pain in order to demonstrate improved BLE strength for transfers and gait 05/26/24: 5 STS w/ annoying pain in lateral hip which is reduced with band at thighs for hip abd STG Duration 6 weeks MET Skilled Nursing Goal (LTG) Pt will be able to perform at least 11 sit to supervisor drawing 30 seconds (age related norm) without increase in baseline pain in order to demonstrate improved BLE strength for transfers and gait LTG Duration 12 weeks One Impairment ambulation Short Term Goal (STG) Pt will report that he is able to ambulate community distance with or without LRAD without increase in baseline pain in order to demonstrate improved symptom management and social participation 05/26/24: pt reports that he can take the dog 2 blocks ea direction w/o any pain, which is more than he used to be able to do since starting PT STG Duration 6 weeks MET Ash Worker Goal (LTG) Pt will report that he is able to ambulate any distance with or without LRAD without increase in baseline pain in order to demonstrate improved symptom management and social participation LTG Duration 12 weeks Assessment Summary Assessment Patient into session with increased BP, post manual therapy supine BP right 144/78 HR 48, with patient able to perform balance activities. Alex rates back pain 1-2/10 end of session. Physical Therapy Plan Frequency and Duration Frequency of Treatment 2x/Week Duration of treatment (weeks) 12 Plan of Care Start Date 04/20/24 Plan of Care End Date 07/14/24 Next Visit Focus/Plan Next Note Type Treatment Note Next Visit Plan monitor vitals during exercise, hx of spondylolisthesis step up, counter bird dog, pallof over head core strength (pallof walkout, press, russian ball tammy- bugs, modified plank on counter or bird dog); hip 3 way, squat with band, step up 4 with glute approach vs leg press. Balance no lumbar vertebral mobilizations
--- NOTE | 2024-06-20 13:19 | PT.OTN ---
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) Weakness (06/20/24) Physical Therapy Treatment Note PT-OP-A Visit Information Start: 04/20/24 12:58 Freq: Status: Active Protocol: Document 06/20/24 08:08 AB (Rec: 06/20/24 09:28 AB [id number]) Out-Patient Physical Therapy Visit Information Visit Information Visit Type Treatment Note Visit Note [email or web address] Access Code: [email or web address] Visit Start Time 08:15 Visit Stop Time 09:01 Visit Number 17 Number of PHOTO FINISH PHOTOGRAPHER Visits 2 Evaluation Information Evaluation Date 04/20/24 Precautions Precautions Fall risk, hx of heart attack and triple bypass monitor vitals with activity , fall risk PT-OP-B Current Condition Start: 04/20/24 12:58 Freq: Status: Active Protocol: Document 04/20/24 12:58 NM (Rec: 04/20/24 13:49 NM [id number]) Current Condition History of Current Condition Current Complaints pain, mobility, strength, balance History of Current Condition Pt reports back pain and B knee pain. He also has a fat pad in his back. Pain is bilateral and along the spine. Reports he also has R thigh pain, which limits his mobility. He sleeps on his L side primarily but has L shoulder pain too. His back pain is the primary limit for his mobility, no DANIAL but chronic. Has had several injections for pain recently and gets weekly massage, which helps. He reports due to his knees that he has difficulty with walking (speed and distance), transfers from a chair (leg pain and weakness), floor transfer (uses hands), stairs. He has had the R knee replaced. Uses cane for gait but did not bring today. He has fallen 3x times backward when he was standing, so the cane helps keep him from falling backward. He just renovated his home to one story, but still has stairs in his house. 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 Currently, pt does an exercise routine and cardiac rehab 2- 3x/wk, but no other exercise. Wants to go back on family walks again for any distance but has not since before felicita Prior Treatments and Tests previous PT at different clinic Treatment Goals Patient/Caregiver Goals walk better, less back pain Prior Functional Status Baseline Function- Recreation/Hobbies exercise routine - 100 toe touches Baseline Function- Other massage 1x/wk Current Functional Impairments (Reported) Functional Limitations- Mobility/Gait unable to participate in family walks Functional Limitations- Recreation/ pain with exercise, toe Hobbies touches row club 3x/wk (does the talking) PT-OP-C Subjective Start: 04/20/24 12:58 Freq: Status: Active Protocol: Document 06/20/24 08:08 AB (Rec: 06/20/24 09:28 AB [id number]) OP-PT Subjective Patient Comments Patient Comments Visible decrease in LE swelling today. Patient reports he is now able to lift LE into car easily. Patient reports he has been eating better and had a bout of diarea over the weekend. Seated BP left UE 154/59 HR 42 BPM. Patient rates left sided back pain 3-4/10 start of session. PT-OP-E Functional Tests Start: 04/20/24 12:58 Freq: Status: Active Protocol: Document 04/20/24 12:58 NM (Rec: 04/20/24 13:49 NM [id number]) Functional Tests 30 Second Sit to Stand Test Score 10 Comments feel it in knees, use HS to stabilize, poor eccentric Five Times Sit to Stand Test Score 13 sec Comments use HS to stabilize, poor eccentric Tinetti Balance and Gait Assessment Balance Score 8 Gait Score 7 Composite Score 15/28 Other Forward Trunk Flexion Test Name of Test measured fingers to floor Score 9 Comment reproduces pain, tight hamstrings PT-OP-F Manual Assessment Start: 04/20/24 12:58 Freq: Status: Active Protocol: Document 04/20/24 12:58 NM (Rec: 04/20/24 13:49 NM [id number]) Manual Assessments Soft Tissue Assessment Soft Tissue Mobility Assessment Tight hip flexors bilaterally (+ massimo test), increased tone in paraspinals especially QL. L trunk periscapular and paraspinals are more restricted and elevated than R side Joint Mobility Assessment Joint Mobility Assessment Decreased lumbar spine and hip mobility. Hypomobility with P -A springing of lumbar spine spinous processes (not tender) and PSIS/SIJ (tender) - R>L PT-OP-G Mobility & Gait Start: 04/20/24 12:58 Freq: Status: Active Protocol: Document 04/20/24 12:58 NM (Rec: 04/20/24 16:11 NM [id number]) OP Gait Assessment Gait Gait Assistance Required: Standby Assistance Distance (Feet) 150 Assistive Devices Assistive Device Gait Belt Gait Deviations General Gait Pattern Antalgic,Decreased Feet Clearance,Flexed Trunk Factors Limiting Gait Function Factors Limiting Gait Function Decreased Activity Tolerance, Decreased Sensation,Decreased Strength,Limited Range of Motion,Pain,Poor Balance Comments Gait Comments uses AD normally Stair Climbing Evaluation Evaluation Level of Assist On Stairs Contact Guard Assistance Devices Stair Climbing Assistive Devices Left Railing,Right Railing Technique/Endurance Stair Climbing Direction Ascend and Descend Stair Climbing Technique Step Over Step Number of Steps Climbed 4 Stair Climbing Set # Repetitions (reps) 1 Comments Stair Climbing Comments Poor trunk and knee stability with descent. Reproduces knee pain PT-OP-J Posture/Palpation/Skin Start: 04/20/24 12:58 Freq: Status: Active Protocol: Document 04/20/24 12:58 NM (Rec: 04/20/24 16:11 NM [id number]) Posture Evaluation Position Standing Head/C-Spine Posture Forward Head T-Spine Posture Increased Kyphosis L-Spine Posture Increased Lordosis Shoulder Posture (L) Rounded,(R) Rounded,(L) Forward,(L) Elevated Pelvis Posture Anteriorly Tilted Weight Distribution Balanced Hip Posture (L) Externally Rotated,(R) Externally Rotated Knee Posture (L) Genu Valgus,(R) Genu Valgus Ankle/Foot Posture (L) Pronated,(R) Pronated Palpation Assessment Location B knees Palpation Details Tenderness along medial and lateral knees, patellar tendon Tenderness along R quad Tightness of B quads lumbar spine Palpation Details Tenderness along PSIS/SIJ, R>L , QL/paraspinals No midline tenderness. Tenderness lateral to spinous processes. PT-OP-K Range of Motion Start: 04/20/24 12:58 Freq: Status: Active Protocol: Document 04/20/24 12:58 NM (Rec: 04/20/24 13:49 NM [id number]) Lumbar Spine Range of Motion Lumbar Spine Active Percentage Flexion 75 Extension 50 Rotation Left 100 Rotation Right 100 Lateral Flexion Left 75 Lateral Flexion Right 50 Comments Pain reproduced with flex, B lateral flex Hip Goniometric Range of Motion Hip Right Internal Rotation 10 External Rotation 30 Left Internal Rotation 10 External Rotation 20 Knee Goniometric Range of Motion Knee Right Flexion Active (degrees) 128 Extension Active (degrees) 0 Left Flexion Active (degrees) 130 Extension Active (degrees) 0 PT-OP-L Special Tests Start: 04/20/24 12:58 Freq: Status: Active Protocol: Document 04/20/24 12:58 NM (Rec: 04/20/24 16:11 NM [id number]) Special Tests Lumbar Spine Special Tests Slump Test Results - Comments B Straight Leg Raise Test Results - Comments B Vega/Quadrant Test Results + Comments R PT-OP-M Strength Start: 04/20/24 12:58 Freq: Status: Active Protocol: Document 05/26/24 13:53 NM (Rec: 05/26/24 14:52 NM [id number]) Hip Strength Hip Manual Muscle Testing Left Flexion (L2) 4- Good- Extension (S1) 3 Fair Abduction 4- Good- External Rotation 4- Good- Internal Rotation 3 Fair Comments 05/26/24: 4/5 MMT Right Flexion (L2) 4- Good- Extension (S1) 3 Fair Abduction 4- Good- External Rotation 4- Good- Internal Rotation 3 Fair Comments 05/26/24: 4/5 MMT Knee Strength Knee Manual Muscle Testing Right Flexion (S2) 4- Good- Extension (L3) 4- Good- Comments 05/26/24: 4/5 MMT Left Flexion (S2) 4- Good- Extension (L3) 4- Good- Comments 05/26/24: 4/5 MMT PT-OP-Q Treatments Start: 04/20/24 12:58 Freq: Status: Active Protocol: Document 06/20/24 08:08 AB (Rec: 06/20/24 09:28 AB [id number]) Therapeutic Exercises Sitting Exercises sit to stand Side bilateral Resistance level 3 band at thighs Equipment Used standard mesh chair Reps/Minutes 10 Comments without UE use, monitored for pain abduction Sitting Exercise Name isometric hold Side bilateral Resistance level 3 band around thighs Reps/Minutes 60 hold X 1 then X15 without hold Standing Exercises counter plank bird dog Side bilateral Reps/Minutes X10 Comments Verbal cues and monitored for pain. hip 3 way Standing Exercise Name flex, abd, ext Side bilateral Resistance level 3 band at ankles Reps/Minutes 10 ea leg, ea direction Comments cued to avoid toeing out cued upright trunk calf raise Side bilateral Reps/Minutes X15 calf stretch Standing Exercise Name ANGIE Side bilateral Reps/Minutes 60 sec knees straight X2 Comments verbal and visual cues Manual Therapy Treatment Soft Tissue Mobilization glutes/piriformis/HS/calves Body Location left glute piriformis Mobilization Type Cross-Friction,Rolling Intensity/Depth Moderate Body Position Sidelying lumbar paraspinals Body Location L and quadratus Mobilization Type Cross-Friction,Rolling, Sustained Pressure Intensity/Depth Moderate Body Position Sidelying PT-OP-T Assessment and Plan Start: 04/20/24 12:58 Freq: Status: Active Protocol: Document 06/20/24 08:08 AB (Rec: 06/20/24 09:28 AB [id number]) Physical Therapy Assessment Goals Six Impairment stairs Route Sales Manager Goal (LTG) Pt will report no increase in baseline pain or poor trunk stability when performing at least 8 stairs with or without hand rail in order to demonstrate improved activity tolerance, pain management, and QOL LTG Duration 12 weeks Five Impairment balance Short Term Goal (STG) Pt will increase Tinetti score >18/28 in order to move from high fall risk to moderate fall risk during gait and stairs 05/26/24: STG Duration 6 weeks MET Route Sales Manager Goal (LTG) Pt will increase Tinetti score >23/28 in order to move from high fall risk to moderate fall risk during gait and stairs LTG Duration 12 weeks Four Impairment strength Short Term Goal (STG) Pt will improve B knee flexion and extension strength to at least 4/5 in order to demonstrate improved stability on stairs and with gait 05/26/24: 4/5 STG Duration 6 weeks MET Mcfp Goal (LTG) Pt will improve B knee flexion and extension strength to at least 4+/5 in order to demonstrate improved stability on stairs and with gait LTG Duration 12 weeks Three Impairment strength Short Term Goal (STG) Pt will increase B hip extension and abduction strength to at least 4-/5 in order to demonstrate improved hip strength for gait, balance , and to decrease fall risk 05/26/24: 4/5 STG Duration 6 weeks MET Route Sales Manager Goal (LTG) Pt will increase B hip extension and abduction strength to at least 4+/5 in order to demonstrate improved hip strength for gait, balance , and to decrease fall risk LTG Duration 12 weeks Two Impairment STS Short Term Goal (STG) Pt will be able to perform 5x STS without compensation or increase in baseline pain in order to demonstrate improved BLE strength for transfers and gait 05/26/24: 5 STS w/ annoying pain in lateral hip which is reduced with band at thighs for hip abd STG Duration 6 weeks MET Route Sales Manager Goal (LTG) Pt will be able to perform at least 11 sit to bowling alley floors installer 30 seconds (age related norm) without increase in baseline pain in order to demonstrate improved BLE strength for transfers and gait LTG Duration 12 weeks One Impairment ambulation Short Term Goal (STG) Pt will report that he is able to ambulate community distance with or without LRAD without increase in baseline pain in order to demonstrate improved symptom management and social participation 05/26/24: pt reports that he can take the dog 2 blocks ea direction w/o any pain, which is more than he used to be able to do since starting STG Duration 6 weeks MET Route Sales Manager Goal (LTG) Pt will report that he is able to ambulate any distance with or without LRAD without increase in baseline pain in order to demonstrate improved symptom management and social participation LTG Duration 12 weeks Assessment Summary Assessment Post exercise BP left UE seated 163/76 HR 49, Post STM lying supine left UE148/78 HR 44. Patient reports the back feels good end of session. Plan to perform balance exercises this session limited by increased BP post exercises. Physical Therapy Plan Frequency and Duration Frequency of Treatment 2x/Week Duration of treatment (weeks) 12 Plan of Care Start Date 04/20/24 Plan of Care End Date 07/14/24 Next Visit Focus/Plan Next Note Type Treatment Note Next Visit Plan monitor vitals during exercise, hx of spondylolisthesis step up, counter bird dog, pallof over head core strength (pallof walkout, press, danish ball tammy- bugs, modified plank on counter or bird dog); hip 3 way, squat with band, step up 4 with glute approach vs leg press. Balance no lumbar vertebral mobilizations
--- NOTE | 2024-06-23 15:59 | PT.OTN ---
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) Weakness (06/23/24) Physical Therapy Treatment Note PT-OP-A Visit Information Start: 04/20/24 12:58 Freq: Status: Active Protocol: Document 06/23/24 08:19 NM (Rec: 06/23/24 09:03 NM [id number]) Out-Patient Physical Therapy Visit Information Visit Information Visit Type Progress Note Visit Start Time 08:19 Visit Stop Time 09:00 Visit Number 18 Evaluation Information Evaluation Date 04/20/24 Precautions Precautions Fall risk, hx of heart attack and triple bypass monitor vitals with activity , fall risk PT-OP-B Current Condition Start: 04/20/24 12:58 Freq: Status: Active Protocol: Document 04/20/24 12:58 NM (Rec: 04/20/24 13:49 NM [id number]) Current Condition History of Current Condition Current Complaints pain, mobility, strength, balance History of Current Condition Pt reports back pain and B knee pain. He also has a fat pad in his back. Pain is bilateral and along the spine. Reports he also has R thigh pain, which limits his mobility. He sleeps on his L side primarily but has L shoulder pain too. His back pain is the primary limit for his mobility, no DANIAL but chronic. Has had several injections for pain recently and gets weekly massage, which helps. He reports due to his knees that he has difficulty with walking (speed and distance), transfers from a chair (leg pain and weakness), floor transfer (uses hands), stairs. He has had the R knee replaced. Uses cane for gait but did not bring today. He has fallen 3x times backward when he was standing, so the cane helps keep him from falling backward. He just renovated his home to one story, but still has stairs in his house. 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 Currently, pt does an exercise routine and cardiac rehab 2- 3x/wk, but no other exercise. Wants to go back on family walks again for any distance but has not since before covid Prior Treatments and Tests previous PT at different clinic Treatment Goals Patient/Caregiver Goals walk better, less back pain Prior Functional Status Baseline Function- Recreation/Hobbies exercise routine - 100 toe touches Baseline Function- Other massage 1x/wk Current Functional Impairments (Reported) Functional Limitations- Mobility/Gait unable to participate in family walks Functional Limitations- Recreation/ pain with exercise, toe Hobbies touches row club 3x/wk (does the talking) PT-OP-C Subjective Start: 04/20/24 12:58 Freq: Status: Active Protocol: Document 06/23/24 08:19 NM (Rec: 06/23/24 09:03 NM [id number]) OP-PT Subjective Patient Comments Patient Comments Pt reports that he is doing well. He can get in/out of car without limitations. Ambulating without cane. Has watchman scheduled for 06/29; planning to d/c today. PT-OP-E Functional Tests Start: 04/20/24 12:58 Freq: Status: Active Protocol: Document 04/20/24 12:58 NM (Rec: 04/20/24 13:49 NM [id number]) Functional Tests 30 Second Sit to Stand Test Score 10 Comments feel it in knees, use HS to stabilize, poor eccentric Five Times Sit to Stand Test Score 13 sec Comments use HS to stabilize, poor eccentric Tinetti Balance and Gait Assessment Balance Score 8 Gait Score 7 Composite Score 15/28 Other Forward Trunk Flexion Test Name of Test measured fingers to floor Score 9 Comment reproduces pain, tight hamstrings PT-OP-F Manual Assessment Start: 04/20/24 12:58 Freq: Status: Active Protocol: Document 04/20/24 12:58 NM (Rec: 04/20/24 13:49 NM [id number]) Manual Assessments Soft Tissue Assessment Soft Tissue Mobility Assessment Tight hip flexors bilaterally (+ massimo test), increased tone in paraspinals especially QL. L trunk periscapular and paraspinals are more restricted and elevated than R side Joint Mobility Assessment Joint Mobility Assessment Decreased lumbar spine and hip mobility. Hypomobility with P -A springing of lumbar spine spinous processes (not tender) and PSIS/SIJ (tender) - R>L PT-OP-G Mobility & Gait Start: 04/20/24 12:58 Freq: Status: Active Protocol: Document 04/20/24 12:58 NM (Rec: 04/20/24 16:11 NM [id number]) OP Gait Assessment Gait Gait Assistance Required: Standby Assistance Distance (Feet) 150 Assistive Devices Assistive Device Gait Belt Gait Deviations General Gait Pattern Antalgic,Decreased Feet Clearance,Flexed Trunk Factors Limiting Gait Function Factors Limiting Gait Function Decreased Activity Tolerance, Decreased Sensation,Decreased Strength,Limited Range of Motion,Pain,Poor Balance Comments Gait Comments uses AD normally Stair Climbing Evaluation Evaluation Level of Assist On Stairs Contact Guard Assistance Devices Stair Climbing Assistive Devices Left Railing,Right Railing Technique/Endurance Stair Climbing Direction Ascend and Descend Stair Climbing Technique Step Over Step Number of Steps Climbed 4 Stair Climbing Set # Repetitions (reps) 1 Comments Stair Climbing Comments Poor trunk and knee stability with descent. Reproduces knee pain PT-OP-J Posture/Palpation/Skin Start: 04/20/24 12:58 Freq: Status: Active Protocol: Document 04/20/24 12:58 NM (Rec: 04/20/24 16:11 NM [id number]) Posture Evaluation Position Standing Head/C-Spine Posture Forward Head T-Spine Posture Increased Kyphosis L-Spine Posture Increased Lordosis Shoulder Posture (L) Rounded,(R) Rounded,(L) Forward,(L) Elevated Pelvis Posture Anteriorly Tilted Weight Distribution Balanced Hip Posture (L) Externally Rotated,(R) Externally Rotated Knee Posture (L) Genu Valgus,(R) Genu Valgus Ankle/Foot Posture (L) Pronated,(R) Pronated Palpation Assessment Location B knees Palpation Details Tenderness along medial and lateral knees, patellar tendon Tenderness along R quad Tightness of B quads lumbar spine Palpation Details Tenderness along PSIS/SIJ, R>L , QL/paraspinals No midline tenderness. Tenderness lateral to spinous processes. PT-OP-K Range of Motion Start: 04/20/24 12:58 Freq: Status: Active Protocol: Document 04/20/24 12:58 NM (Rec: 04/20/24 13:49 NM [id number]) Lumbar Spine Range of Motion Lumbar Spine Active Percentage Flexion 75 Extension 50 Rotation Left 100 Rotation Right 100 Lateral Flexion Left 75 Lateral Flexion Right 50 Comments Pain reproduced with flex, B lateral flex Hip Goniometric Range of Motion Hip Right Internal Rotation 10 External Rotation 30 Left Internal Rotation 10 External Rotation 20 Knee Goniometric Range of Motion Knee Right Flexion Active (degrees) 128 Extension Active (degrees) 0 Left Flexion Active (degrees) 130 Extension Active (degrees) 0 PT-OP-L Special Tests Start: 04/20/24 12:58 Freq: Status: Active Protocol: Document 04/20/24 12:58 NM (Rec: 04/20/24 16:11 NM [id number]) Special Tests Lumbar Spine Special Tests Slump Test Results - Comments B Straight Leg Raise Test Results - Comments B Vega/Quadrant Test Results + Comments R PT-OP-M Strength Start: 04/20/24 12:58 Freq: Status: Active Protocol: Document 06/23/24 08:19 NM (Rec: 06/23/24 09:03 NM [id number]) Hip Strength Hip Manual Muscle Testing Left Flexion (L2) 4 Good Extension (S1) 4 Good Abduction 4 Good Adduction 4 Good External Rotation 4 Good Internal Rotation 4 Good Comments 05/26/24: 4/5 MMT 06/23/24: 4/5 for all Right Flexion (L2) 4- Good- Extension (S1) 4 Good Abduction 4 Good Adduction 4 Good External Rotation 4 Good Internal Rotation 4 Good Comments 05/26/24: 4/5 MMT 06/23/24: 4/5 for all Knee Strength Knee Manual Muscle Testing Right Flexion (S2) 4- Good- Extension (L3) 4- Good- Comments 05/26/24: 4/5 MMT 06/23/24: 4+/5 Left Flexion (S2) 4- Good- Extension (L3) 4- Good- Comments 05/26/24: 4/5 MMT 06/23/24: 4+/5 PT-OP-Q Treatments Start: 04/20/24 12:58 Freq: Status: Active Protocol: Document 06/23/24 08:19 NM (Rec: 06/23/24 09:03 NM [id number]) Therapeutic Exercises Sidelying Exercises hip abduction Side bilateral Resistance level 3 band Reps/Minutes 15 with 3 hold Sitting Exercises sit to stand Side bilateral Equipment Used standard mesh chair Reps/Minutes 1. 11 in 30 sec, 2. 15 Comments without UE use, monitored for pain Standing Exercises carries Standing Exercise Name asymmetrical Neuro Re-Education Treatment Balance Activities bungee Details resisted stepping, trunk posture Surface stable Equipment green Reps/Duration 10 ea direction - 15 minutes total due to increased time w/ stepping Comments cued for step length, KUSHAL, upright trunk posture Tinetti Reps/Duration /28 PT-OP-T Assessment and Plan Start: 04/20/24 12:58 Freq: Status: Active Protocol: Document 06/23/24 08:19 NM (Rec: 06/23/24 09:03 NM [id number]) Physical Therapy Assessment Goals Six Impairment stairs Optical Engineering Manager Goal (LTG) Pt will report no increase in baseline pain or poor trunk stability when performing at least 8 stairs with or without hand rail in order to demonstrate improved activity tolerance, pain management, and QOL 06/23/24: has knee pain with stairs, can manage with a rail and close SBA LTG Duration 12 weeks NOT MET Five Impairment balance Short Term Goal (STG) Pt will increase Tinetti score >18/28 in order to move from high fall risk to moderate fall risk during gait and stairs 05/26/24: STG Duration 6 weeks MET Prison Goal (LTG) Pt will increase Tinetti score >23/28 in order to move from high fall risk to moderate fall risk during gait and stairs 06/23/24: LTG Duration 12 weeks MET Four Impairment strength Short Term Goal (STG) Pt will improve B knee flexion and extension strength to at least 4/5 in order to demonstrate improved stability on stairs and with gait 05/26/24: 4/5 STG Duration 6 weeks MET Optical Engineering Manager Goal (LTG) Pt will improve B knee flexion and extension strength to at least 4+/5 in order to demonstrate improved stability on stairs and with gait 06/23/24: 4+/5 for all LTG Duration 12 weeks MET Three Impairment strength Short Term Goal (STG) Pt will increase B hip extension and abduction strength to at least 4-/5 in order to demonstrate improved hip strength for gait, balance , and to decrease fall risk 05/26/24: 4/5 STG Duration 6 weeks MET Prison Goal (LTG) Pt will increase B hip extension and abduction strength to at least 4+/5 in order to demonstrate improved hip strength for gait, balance , and to decrease fall risk 06/23/24: 4/5 for all LTG Duration 12 weeks NOT MET Two Impairment STS Short Term Goal (STG) Pt will be able to perform 5x STS without compensation or increase in baseline pain in order to demonstrate improved BLE strength for transfers and gait 05/26/24: 5 STS w/ annoying pain in lateral hip which is reduced with band at thighs for hip abd STG Duration 6 weeks MET Optical Engineering Manager Goal (LTG) Pt will be able to perform at least 11 sit to bellstand attendant 30 seconds (age related norm) without increase in baseline pain in order to demonstrate improved BLE strength for transfers and gait 06/23/24: 11 STS in 30 sec LTG Duration 12 weeks MET One Impairment ambulation Short Term Goal (STG) Pt will report that he is able to ambulate community distance with or without LRAD without increase in baseline pain in order to demonstrate improved symptom management and social participation 05/26/24: pt reports that he can take the dog 2 blocks ea direction w/o any pain, which is more than he used to be able to do since starting STG Duration 6 weeks MET Optical Engineering Manager Goal (LTG) Pt will report that he is able to ambulate any distance with or without LRAD without increase in baseline pain in order to demonstrate improved symptom management and social participation 06/23/24: pt reports not limited with distance due to back pain; currently not using AD; planning to try walking with dog LTG Duration 12 weeks MET Progress Towards Goals Progress Towards Goals Progressing Toward Goals,Goals Met Assessment Summary Assessment Pt tolerated session well. Demonstrates improved trunk stability during resisted stepping with resistance at trunk in multiple directions. Most challenged with lateral movements and maintaining wider KUSHAL to prevent stumbling . Pt met 30 sec STS goal, demos improved form and speed. Improved trunk stability during stepping, carries. Pt's stability better than previous sessions on unstable surface. However, pt still has difficulty with weight shift. Pt will be having watchman procedure next week so will need to d/c today until cleared to return to PT with new referral. Physical Therapy Plan Frequency and Duration Frequency of Treatment 2x/Week Duration of treatment (weeks) 12 Plan of Care Start Date 04/20/24 Plan of Care End Date 07/14/24 Therapeutic Interventions Therapeutic Interventions Balance Training,Gait Training ,Home Exercise Program,Joint Mobilizations,Manual Therapy, Neuromuscular Re-education, Orthotic/Prosthetic Management ,Patient/Caregiver Education, Self-Care/Home Management, Sensory Integration,Soft Tissue Mobilization,Taping, Therapeutic Activities, Therapeutic Exercises Modalities Cold Pack/Ice Massage,Hot Packs Other Therapeutic Interventions pelvic realignment manual traction Discharge Physical Therapy Discharge Reasons Change in Medical Status Discharge Comments Pt will be having upcoming procedure and will need medical clearance along with new referral to return to PT Next Visit Focus/Plan Next Visit Plan discharge from PT
== END 2024-07-25 09:39 | disposition home or self-care (01) ==
LOC: PHYS 08:15
PROVIDERS: Family Provider Internal Medicine; PCP Internal Medicine; Referring Provider Physical Medicine & Rehabilitation; Visit Provider Physical Medicine & Rehabilitation
DX: M43.16 Spondylolisthesis, lumbar region (principal); M47.816 Spondylosis without myelopathy or radiculopathy, lumbar region; R53.1 Weakness
CPT/HCPCS: 97110; 97112; 97140; 97162; 97530; 97535

== ENCOUNTER → 2024-06-29 07:24 | Outpatient (CLI) | payer MEDICARE, SELFPAY ==
[2024-06-29 08:13] LABS: BUN Creatinine Ratio 18.8 (6-22); Blood Urea Nitrogen 16 mg/dL (9-20); Calcium 9.8 mg/dL (8.4-10.2); Carbon Dioxide 30 mmol/L (22-32); Chloride 104 mmol/L (98-107); Estimated Glomerular Filt Rate > 60 mL/min (>60); Glucose 97 mg/dL (80-110); HEMOLYSIS < 15 (0-50); Potassium 3.6 mmol/L (3.4-5.1); Sodium 142 mmol/L (137-145)
== END ==
PROVIDERS: Family Provider Internal Medicine; PCP Internal Medicine; Referring Provider Internal Medicine; Visit Provider Internal Medicine
DX: R60.0 Localized edema (principal)
CPT/HCPCS: 36415; 80048

== ENCOUNTER → 2024-08-18 11:42 | Outpatient (CLI) | payer MEDICARE, SELFPAY ==
[2024-08-18 12:43] LABS: Add Manual Diff / Slide Review NO; Basophils Absolute Auto 0 /uL (0-100); Basophils Percent Auto 0.8 % (0-2); Eosinophils Absolute Auto 100 /uL (0-450); Eosinophils Percent Auto 1.5 % (2-4); Hematocrit 28.5 % (41-53); Hemoglobin 9.7 g/dL (13.5-17.5); Lymphocytes Absolute Auto 500 /uL (1100-4500); Lymphocytes Percent Auto 10.6 % (25-40); Mean Corpuscular Hemoglobin 31.9 PG (26-34); Mean Corpuscular Volume 93.9 fL (80-100); Monocytes Absolute Auto 400 /uL (0-900); Monocytes Percent Auto 6.8 % (3-14); Neutrophils Absolute Auto 4100 /uL (1500-7000); Neutrophils Percent Auto 80.3 % (50-75); Platelet Count 94 X10^3/uL (150-400); Red Blood Cell Count 3.04 X10^6/uL (4.5-5.9); Red Cell Distribution Width 15.4 % (11.6-14.8); White Blood Cell Count 5.2 X10^3/uL (4.5-11.0)
[2024-08-18 14:05] LABS: BUN Creatinine Ratio 26.5 (6-22); Blood Urea Nitrogen 30 mg/dL (9-20); Calcium 9.9 mg/dL (8.4-10.2); Carbon Dioxide 31 mmol/L (22-32); Chloride 101 mmol/L (98-107); Estimated Glomerular Filt Rate > 60 mL/min (>60); Glucose 127 mg/dL (80-110); HEMOLYSIS < 15 (0-50); Magnesium 1.8 mg/dL (1.6-2.3); Potassium 3.7 mmol/L (3.4-5.1); Sodium 139 mmol/L (137-145)
[2024-08-18 17:54] LABS: Prostate Specific Antigen < 0.064 ng/mL (0.10-4.00)
== END ==
PROVIDERS: Urology; Family Provider Internal Medicine; PCP Internal Medicine; Referring Provider Internal Medicine Cardiovascular Disease; Visit Provider Internal Medicine Cardiovascular Disease
DX: I48.11 Longstanding persistent atrial fibrillation (principal); C61 Malignant neoplasm of prostate; Z95.818 Presence of other cardiac implants and grafts; R60.0 Localized edema; I10 Essential (primary) hypertension
CPT/HCPCS: 36415; 80048; 83735; 84153; 85025

== ENCOUNTER → 2024-08-18 17:18 | Outpatient (CLI) | payer MEDICARE, SELFPAY | PROVIDERS: Family Provider Internal Medicine; PCP Internal Medicine; Referring Provider Internal Medicine; Visit Provider Internal Medicine | DX: Z23 Encounter for immunization (principal) | CPT/HCPCS: 90471; 90662 ==

== ENCOUNTER → 2024-10-02 15:04 | Outpatient (CLI) | payer MEDICARE, SELFPAY ==
--- NOTE | 2024-10-02 15:06 | DI.RAD.S_ITS ---
PROCEDURE: XR CHEST 2V INDICATIONS: DYSPNEA TECHNIQUE: 2 views of the chest were acquired. COMPARISON: [facility], CR, XR CHEST 2V, 06/28/2023, 16:13. FINDINGS: Surgical changes and devices: Median sternotomy wires and aortic stent graft are seen. Lungs and pleura: There is small left pleural effusion with blunting of left costophrenic angle. No pneumothorax. No definite focal infiltrate. Mild pulmonary vascular congestion is seen. Mediastinum: Mediastinal contours are normal. Heart size is enlarged. Bones and chest wall: No suspicious bony abnormalities. Soft tissues appear unremarkable. IMPRESSION: Cardiomegaly and mild congestion with small left pleural effusion. No definite focal infiltrate. No pneumothorax. Dictated by: Cj Ivy M.D. on 10/02/2024 at 16:52 Approved by: Cj Ivy M.D. on 10/02/2024 at 16:53
[2024-10-02 16:13] LABS: Reticulocyte Count, Percent 1.4 % (0.9-2.6)
[2024-10-02 16:15] LABS: Add Manual Diff / Slide Review NO; Basophils Absolute Auto 100 /uL (0-100); Basophils Percent Auto 1.1 % (0-2); Eosinophils Absolute Auto 100 /uL (0-450); Eosinophils Percent Auto 1.2 % (2-4); Hematocrit 30.1 % (41-53); Hemoglobin 10.1 g/dL (13.5-17.5); Lymphocytes Absolute Auto 900 /uL (1100-4500); Lymphocytes Percent Auto 14.8 % (25-40); Mean Corpuscular HGB Conc 33.7 % (30-36); Mean Corpuscular Hemoglobin 31.3 PG (26-34); Mean Corpuscular Volume 93.1 fL (80-100); Monocytes Absolute Auto 600 /uL (0-900); Monocytes Percent Auto 9.6 % (3-14); Neutrophils Absolute Auto 4200 /uL (1500-7000); Neutrophils Percent Auto 73.3 % (50-75); Platelet Count 115 X10^3/uL (150-400); Red Blood Cell Count 3.23 X10^6/uL (4.5-5.9); Red Cell Distribution Width 16.3 % (11.6-14.8); White Blood Cell Count 5.8 X10^3/uL (4.5-11.0)
[2024-10-02 16:32] LABS: HEMOLYSIS < 15 (0-50); Iron 47 ug/dL (49-181)
[2024-10-02 16:33] LABS: Alanine Aminotransferase 17 IU/L (<50); Albumin Globulin Ratio 1.7 (1.0-2.8); Alkaline Phosphatase 71 U/L (38-126); Aspartate Aminotransferase 33 IU/L (17-59); BUN Creatinine Ratio 27.7 (6-22); Blood Urea Nitrogen 26 mg/dL (9-20); Calcium 9.8 mg/dL (8.4-10.2); Carbon Dioxide 27 mmol/L (22-32); Chloride 104 mmol/L (98-107); Estimated Glomerular Filt Rate > 60 mL/min (>60); Globulin 2.3 g/dL (1.7-4.1); Glucose 94 mg/dL (80-110); HEMOLYSIS < 15 (0-50); Potassium 3.6 mmol/L (3.4-5.1); Sodium 140 mmol/L (137-145); Total Protein 6.3 g/dL (6.3-8.2)
[2024-10-02 16:42] LABS: NT-proBNP (BNP-Adult 18+) 6100 pg/mL (<450)
[2024-10-02 16:45] LABS: Percent Iron Saturation 17 % (20-50); Total Iron Binding Capacity 274 ug/dL (261-462); Transferrin 230 mg/dL (206-381)
[2024-10-02 17:40] LABS: Folate 14.3 ng/mL (2.76-20.0); Vitamin B12 306 pg/mL (239-931)
== END ==
PROVIDERS: Family Provider Internal Medicine; PCP Internal Medicine; Referring Provider Internal Medicine; Visit Provider Internal Medicine
DX: I48.0 Paroxysmal atrial fibrillation; I11.0 Hypertensive heart disease with heart failure; I50.9 Heart failure, unspecified; R09.89 Other specified symptoms and signs involving the circulatory and respiratory systems; J90 Pleural effusion, not elsewhere classified; R06.00 Dyspnea, unspecified; D64.9 Anemia, unspecified
CPT/HCPCS: 36415; 71046; 80053; 82607; 82746; 83540; 83550; 83880; 85025; 85045

== ENCOUNTER → 2024-10-11 14:20 | Outpatient (CLI) | payer MEDICARE, SELFPAY ==
[2024-10-11 15:10] LABS: Appearance Urine UA CLEAR; Bilirubin Urine UA NEGATIVE (NEGATIVE); Color Urine UA YELLOW; Glucose Urine UA NEGATIVE (Negative); Ketones Urine UA NEGATIVE (NEGATIVE); Leukocyte Esterase Urine UA NEGATIVE (NEGATIVE); Nitrite Urine UA NEGATIVE (Negative); Occult Blood Urine UA 1+ (Negative); Protein Urine UA NEGATIVE (Negative); Specific Gravity Urine UA <=1.005 (1.000-1.035); Urobilinogen Urine UA 0.2 E.U./dL (0.2)
[2024-10-11 15:23] LABS: Bacteria Urine None Seen; Culture Indicated Urine Cult Not Indicated; RBC Urine 0-1/HPF (0-5/HPF); Squamous Epithelial Cell Urine None Seen (0-5/HPF); Urine Volume 10mL (spun); WBC Urine None Seen (0-5/HPF)
== END ==
PROVIDERS: Family Provider Internal Medicine; PCP Internal Medicine; Referring Provider Urology; Visit Provider Urology
DX: N32.81 Overactive bladder (principal); R31.21 Asymptomatic microscopic hematuria; N39.492 Postural (urinary) incontinence; N40.1 Benign prostatic hyperplasia with lower urinary tract symptoms; N13.8 Other obstructive and reflux uropathy
CPT/HCPCS: 81001

== ENCOUNTER → 2024-10-14 09:39 | Outpatient (CLI) | payer MEDICARE, SELFPAY ==
[2024-10-14 11:18] LABS: Alanine Aminotransferase 28 IU/L (<50); Albumin 3.7 g/dL (3.5-5.0); Albumin Globulin Ratio 1.4 (1.0-2.8); Alkaline Phosphatase 69 U/L (38-126); Aspartate Aminotransferase 41 IU/L (17-59); Bilirubin Total 0.6 mg/dL (0.2-1.3); Blood Urea Nitrogen 50 mg/dL (9-20); Calcium 10.2 mg/dL (8.4-10.2); Carbon Dioxide 38 mmol/L (22-32); Chloride 97 mmol/L (98-107); Estimated Glomerular Filt Rate 56 mL/min (>60); Globulin 2.7 g/dL (1.7-4.1); Glucose 138 mg/dL (80-110); HEMOLYSIS < 15 (0-50); Potassium 3.4 mmol/L (3.4-5.1); Sodium 138 mmol/L (137-145); Total Protein 6.4 g/dL (6.3-8.2)
[2024-10-14 11:26] LABS: NT-proBNP (BNP-Adult 18+) 3470 pg/mL (<450)
== END ==
PROVIDERS: Family Provider Internal Medicine; PCP Internal Medicine; Referring Provider Internal Medicine; Visit Provider Internal Medicine
DX: R60.0 Localized edema (principal); I50.9 Heart failure, unspecified; I11.0 Hypertensive heart disease with heart failure
CPT/HCPCS: 36415; 80053; 83880

== ENCOUNTER → 2024-10-17 09:23 | Outpatient (CLI) | payer MEDICARE, SELFPAY ==
[2024-10-17 10:12] LABS: Hematocrit 31.7 % (41-53); Hemoglobin 10.7 g/dL (13.5-17.5); Mean Corpuscular HGB Conc 33.8 % (30-36); Mean Corpuscular Volume 91.7 fL (80-100); Platelet Count 121 X10^3/uL (150-400); Red Blood Cell Count 3.46 X10^6/uL (4.5-5.9); Red Cell Distribution Width 15.4 % (11.6-14.8); White Blood Cell Count 4.7 X10^3/uL (4.5-11.0)
== END ==
LOC: LAB 09:25
PROVIDERS: Family Provider Internal Medicine; PCP Internal Medicine; Referring Provider Internal Medicine Cardiovascular Disease; Visit Provider Internal Medicine Cardiovascular Disease
DX: D69.6 Thrombocytopenia, unspecified (principal)
CPT/HCPCS: 36415; 85027

== ENCOUNTER 2024-10-27 14:30 | Outpatient (RCR) | payer MEDICARE, SELFPAY ==
--- NOTE | 2024-09-01 15:54 | PT.OIE ---
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 (02/15/17) Current use of care home anticoagulation Facet arthropathy, lumbar History of endovascular stent graft for abdominal aortic aneurysm (AAA) (09/21/17) History of radiation therapy Hyperlipidemia, mixed (09/22/11) Left knee DJD Lumbar stenosis with neurogenic claudication Mild neurocognitive disorder Overactive bladder Paroxysmal atrial fibrillation (~04/2023) Peripheral edema Presence of Watchman left atrial appendage closure device Prostate cancer Spondylolisthesis at L4-L5 level Status post repair of abdominal aortic aneurysm (AAA) using straight graft (09/21/17) Urinary Incontinence Past Surgical History (Last Updated 08/18/24 @ 11:15 by Chriss Mayorga MD) H/O endovascular stent graft for abdominal aortic aneurysm (~06/2019) History of appendectomy History of coronary artery bypass graft x 3 (~12/2009) History of knee replacement procedure of right knee Hx laparoscopic cholecystectomy Visit Care Team Role Provider Type Chriss Mayorga MD Family Provider Physician Primary Care Provider Specialty: Internal Medicine Address: [address] [place] [address], [address], [place], [address] Email: [email or web address] Tyshawn Abdullahi DO Attending Provider Physician Referring Provider Specialty: Interventional Radiology Physiatry Pain Management Address: [facility] [place], [address] Email: [email or web address] Physical Therapy Initial Evaluation PT-OP-A Visit Information Start: 09/01/24 07:21 Freq: Status: Active Protocol: Document 09/01/24 08:15 NM (Rec: 09/01/24 09:00 NM [id number]) Out-Patient Physical Therapy Visit Information Visit Information Visit Type Initial Evaluation Visit Note Vitals: L brachial 150/71 mmHg , 54 bpm, 98% spO2 Visit Start Time 08:17 Visit Stop Time 09:00 Visit Number 1 Evaluation Information Evaluation Date 09/01/24 Precautions Precautions monitor vitals d/t watchman procedure (heart), TIA/stroke hx Back pain PT-OP-B Current Condition Start: 09/01/24 07:21 Freq: Status: Active Protocol: Document 09/01/24 08:15 NM (Rec: 09/01/24 09:00 NM [id number]) Current Condition History of Current Condition Onset Date chronic Current Complaints pain, weakness, decreased mobility History of Current Condition Pt presents with L knee pain. Reports grinding and clinking in L knee. Has not given out on him. Reports that R knee used to hurt prior to TKA, still has occasional pain but L knee is more problematic. He just had a watchman procedure in June, Dr. Duran; he is still going to cardiac rehab (cleared by Dr. Mayorga), unsure if cleared for PT. He is planning to get a L knee replacement before the end of the year, he went to ortho specialist yesterday. Pt reports that his knee has been bothering him for many years. He had a R TKA many years ago , reports has a tiny separation in the new knee joint. Presents with spc. He has stairs in his home but has has a downstairs bedroom that he has been living in. Has 3 steps at back porch to enter home (main entrance). He has swelling in B legs still. Just saw urologist, has been taking pills to reduce swelling in BLE. Swelling limits his shoes. Hx of back pain, has been treated. States that after last rehab stint, reports that he was able to lift his leg into car without assist and with less pain. Pt has had falls (3) within the last year but none since June when discharged from PT . Started using spc again after discharging from PT. PT-OP-C Subjective Start: 09/01/24 07:21 Freq: Status: Active Protocol: Document 09/01/24 08:15 NM (Rec: 09/01/24 09:00 NM [id number]) OP-PT Subjective Patient Comments Patient Comments Pt consents to participate in evaluation Patient Questionnaires Lower Extremity Functional Scale LEFS Score 31/80 OP-PT Pain Assessment Location L knee Pain Location Details medial knee, next to patella Intensity 4 Scale Used Numeric (0 - 10) Description Aching,Dull Description- Other worst: 8, best: 3 Frequency Frequent Pain Aggravating Factors ADL's,Exercise,Walking,Stair Climbing Other Pain Aggravating Factors car transfers (has to assist with hands), donning pants Pain Alleviating Factors Medication,Massage Other Pain Alleviating Factors tylenol and a prescribed pain killer PT-OP-E Functional Tests Start: 09/01/24 07:21 Freq: Status: Active Protocol: Document 09/01/24 08:15 NM (Rec: 09/01/24 09:00 NM [id number]) Functional Tests 6 Minute Walk Test Distance 856 ft Device Used spc Comments pain in L and R knee Five Times Sit to Stand Test Score 21.72 seconds Comments 18 chair, no knee pain Timed Up and Go (TUG) Score 19.8 sec w/ spc; 20.4 sec w/o spc Comments w/ spc and w/o spc PT-OP-F Manual Assessment Start: 09/01/24 07:21 Freq: Status: Active Protocol: Document 09/01/24 08:15 NM (Rec: 09/01/24 09:00 NM [id number]) Manual Assessments Soft Tissue Assessment Soft Tissue Mobility Assessment Demos increased restrictions of B hip ER, adductors, hamstrings, quads, hip flexors Joint Mobility Assessment Joint Mobility Assessment L knee stiff, demos crepitus and catching with knee flex/ extension especially at patella PT-OP-G Mobility & Gait Start: 09/01/24 07:21 Freq: Status: Active Protocol: Document 09/01/24 08:15 NM (Rec: 09/01/24 14:25 NM [id number]) OP Gait Assessment Gait Gait Assistance Required: Standby Assistance Distance (Feet) 150 Assistive Devices Assistive Device Gait Belt,Straight Cane Gait Deviations General Gait Pattern Antalgic,Decreased Stride Length,Decreased Feet Clearance,Narrow Based Gait Factors Limiting Gait Function Factors Limiting Gait Function Decreased Activity Tolerance, Decreased Strength,Limited Range of Motion,Pain,Poor Balance Comments Gait Comments using spc in R hand but places either far out to side or very close next to foot, poor coordination of spc and feet PT-OP-H Neuro Start: 09/01/24 07:21 Freq: Status: Active Protocol: Document 09/01/24 08:15 NM (Rec: 09/01/24 09:00 NM [id number]) Sensation Evaluation Comments Summary Comments BLE equally intact to light touch sensation PT-OP-J Posture/Palpation/Skin Start: 09/01/24 07:21 Freq: Status: Active Protocol: Document 09/01/24 08:15 NM (Rec: 09/01/24 14:25 NM [id number]) Posture Evaluation Position Standing Head/C-Spine Posture Forward Head L-Spine Posture Increased Lordosis Shoulder Posture (L) Rounded,(R) Rounded Pelvis Posture Anteriorly Tilted Comments Posture Comments Increased flexion at knees BLE . Trunk slightly flexed Palpation Assessment Location L knee Palpation Details Tenderness along medial knee near pes anserine, joint line, patella, femoral condule No tenderness at patella but decreased mobility Skin Assessment Other Assessments Skin Assessment Comments Has pitting edema on BLE from hips to ankles Old healed incision along L medial knee from previous surgery PT-OP-K Range of Motion Start: 09/01/24 07:21 Freq: Status: Active Protocol: Document 09/01/24 08:15 NM (Rec: 09/01/24 09:00 NM [id number]) Knee Goniometric Range of Motion Knee Right Flexion Active (degrees) 120 Extension Active (degrees) 3 Left Flexion Active (degrees) 110 Extension Active (degrees) 10 PT-OP-M Strength Start: 09/01/24 07:21 Freq: Status: Active Protocol: Document 09/01/24 08:15 NM (Rec: 09/01/24 09:00 NM [id number]) Hip Strength Hip Manual Muscle Testing Right Flexion (L2) 3+ Fair+ Abduction 4- Good- Adduction 4- Good- Comments hip flexion painful Left Flexion (L2) 3 Fair Abduction 4- Good- Adduction 4- Good- Comments hip flexion painful Knee Strength Knee Manual Muscle Testing Right Flexion (S2) 4- Good- Extension (L3) 4- Good- Comments no pain Left Flexion (S2) 4- Good- Extension (L3) 4- Good- Comments no pain Ankle/Foot Strength Ankle and Foot Manual Muscle Testing Right Dorsiflexion (L4) 4- Good- Plantarflexion (S1) 4- Good- Left Dorsiflexion (L4) 4- Good- PT-OP-T Assessment and Plan Start: 09/01/24 07:21 Freq: Status: Active Protocol: Document 09/01/24 08:15 NM (Rec: 09/01/24 09:00 NM [id number]) Physical Therapy Assessment Rehab Potential Rehabilitation Potential Fair Evaluation Complexity Number of Personal Factors/Comorbidities 3 or More Number of Body Systems Impaired 4 or More Clinical Presentation at Evaluation Stable Impairments Impairments Activity Tolerance,Balance, Edema,Functional Activities, Functional Mobility,Gait, Integument,Pain,Posture,ROM, Sensation,Soft Tissue Mobility ,Strength,Transfers Other Concerns Fall Risk high Age Related Concerns PMH: arthritis, back pain, smitha problems, stroke/TIA, vision problems, watchman procedure 2023, 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), B edema, heart disease Barriers to Rehabilitation Pt planning to have upcoming knee surgery Goals Four Impairment TUG time 19.8 sec w/ spc, 20.4 w/o spc Lan Manager Goal (LTG) Pt will decrease TUG time to < 18 seconds or less in order to demonstrate improved initial standing balance and gait speed for safety during community and household ambulation LTG Duration 8 weeks Three Impairment 6 MWT 856 ft w/ spc; wants to return to family walks Lan Manager Goal (LTG) Pt will improve 6MWT distance with or without AD >900 ft in order to demonstrate improved BLE strength, balance, and pain management to participate in family walks if appropriate LTG Duration 8 weeks Two Impairment 5x STS time 21.7 seconds indicates limits in BLE strength Care Home Goal (LTG) Pt will decrease 5x STS time to <15 seconds (age-related norm) from 18 surface in order to demonstrate increased BLE strength for gait, balance, transfers, and in preparation for upcoming knee surgery LTG Duration 8 weeks One Impairment not performing HEP Short Term Goal (STG) Pt will report compliance at least 2x/wk with HEP in order to maximize progression with PT and transition to maintenance program in preparation for upcoming surgery STG Duration 3 weeks Care Home Goal (LTG) Pt will report compliance at least 3x/wk with HEP in order to transition to maintenance program in preparation for upcoming surgery LTG Duration 8 weeks Assessment Summary Assessment Pt is an 89 y.o. presenting with chronic L knee pain consistent with OA dx. Pt has limitations in L knee AROM and strength. Pt has impairments in gait, balance, pain management, ROM, strength, activity tolerance, and ability to perform ADLs. His L knee pain is limiting his ability to participate in ADLs /IADLs and recreational/family activities. Pt's 5x STS, 6 MWT, and TUG time are all below age-related norms and indicated decreased BLE strength or increased risk of falls. Pt has concurrently low back pain for which he was previously treated; still ongoing issue that affects gait and balance. He is currently using an spc for gait but was not using an AD at time of discharge from PT in 2023. Pt has consulted with an excellence specialist and is planning to have a L TKA in future. PT educated pt on exam findings and plan of care . PT also asked pt to contact accounting office manager to determine if pt cleared to begin PT following procedure. Pt would benefit from skilled PT in order to improve BLE strength, L knee AROM, gait, and balance in order to improve ability to perform transfers, increase activity tolerance, and decrease fall risk. Physical Therapy Plan Frequency and Duration Frequency of Treatment 2x/Week Duration of treatment (weeks) 8 Plan of Care Start Date 09/01/24 Plan of Care End Date 10/27/24 Therapeutic Interventions Therapeutic Interventions Balance Training,Gait Training ,Home Exercise Program,Joint Mobilizations,Manual Therapy, Neuromuscular Re-education, Orthotic/Prosthetic Management ,Patient/Caregiver Education, Self-Care/Home Management, Sensory Integration,Soft Tissue Mobilization,Taping, Therapeutic Activities, Therapeutic Exercises Modalities Cold Pack/Ice Massage,Hot Packs Next Visit Focus/Plan Next Note Type Treatment Note Next Visit Plan Begin hip and knee strengthening: seated hip abd, side steps, LAQ, HSC, hip 3 way, heel raises, toe raises. STS, progress to leg press. Manual therapy to L knee
--- NOTE | 2024-09-06 12:22 | PT.OTN ---
Current Diagnoses Unilateral primary osteoarthritis, left knee (09/06/24) Stiffness of left knee, not elsewhere classified (09/06/24) Other lack of coordination (09/06/24) Weakness (09/06/24) Physical Therapy Treatment Note PT-OP-A Visit Information Start: 09/01/24 07:21 Freq: Status: Active Protocol: Document 09/06/24 11:35 NM (Rec: 09/06/24 12:22 NM [id number]) Out-Patient Physical Therapy Visit Information Visit Information Visit Type Treatment Note Visit Note Vitals: L arm 137/73, 56 bpm, 100% Visit Start Time 11:35 Visit Stop Time 12:15 Visit Number 2 Evaluation Information Evaluation Date 09/01/24 Precautions Precautions monitor vitals d/t watchman procedure (heart), TIA/stroke hx Back pain PT-OP-B Current Condition Start: 09/01/24 07:21 Freq: Status: Active Protocol: Document 09/01/24 08:15 NM (Rec: 09/01/24 09:00 NM [id number]) Current Condition History of Current Condition Onset Date chronic Current Complaints pain, weakness, decreased mobility History of Current Condition Pt presents with L knee pain. Reports grinding and clinking in L knee. Has not given out on him. Reports that R knee used to hurt prior to TKA, still has occasional pain but L knee is more problematic. He just had a watchman procedure in June, Dr. Duran; he is still going to cardiac rehab (cleared by Dr. Mayorga), unsure if cleared for PT. He is planning to get a L knee replacement before the end of the year, he went to ortho specialist yesterday. Pt reports that his knee has been bothering him for many years. He had a R TKA many years ago , reports has a tiny separation in the new knee joint. Presents with spc. He has stairs in his home but has has a downstairs bedroom that he has been living in. Has 3 steps at back porch to enter home (main entrance). He has swelling in B legs still. Just saw urologist, has been taking pills to reduce swelling in BLE. Swelling limits his shoes. Hx of back pain, has been treated. States that after last rehab stint, reports that he was able to lift his leg into car without assist and with less pain. Pt has had falls (3) within the last year but none since June when discharged from PT . Started using spc again after discharging from PT. PT-OP-C Subjective Start: 09/01/24 07:21 Freq: Status: Active Protocol: Document 09/06/24 11:35 NM (Rec: 09/06/24 12:22 NM [id number]) OP-PT Subjective Patient Comments Patient Comments Pt reports feeling lousy today. States no changes after evaluation. Was cleared by corporate secretary to start PT. Reports 4/10 L knee pain. PT-OP-E Functional Tests Start: 09/01/24 07:21 Freq: Status: Active Protocol: Document 09/01/24 08:15 NM (Rec: 09/01/24 09:00 NM [id number]) Functional Tests 6 Minute Walk Test Distance 856 ft Device Used spc Comments pain in L and R knee Five Times Sit to Stand Test Score 21.72 seconds Comments 18 chair, no knee pain Timed Up and Go (TUG) Score 19.8 sec w/ spc; 20.4 sec w/o spc Comments w/ spc and w/o spc PT-OP-F Manual Assessment Start: 09/01/24 07:21 Freq: Status: Active Protocol: Document 09/01/24 08:15 NM (Rec: 09/01/24 09:00 NM [id number]) Manual Assessments Soft Tissue Assessment Soft Tissue Mobility Assessment Demos increased restrictions of B hip ER, adductors, hamstrings, quads, hip flexors Joint Mobility Assessment Joint Mobility Assessment L knee stiff, demos crepitus and catching with knee flex/ extension especially at patella PT-OP-G Mobility & Gait Start: 09/01/24 07:21 Freq: Status: Active Protocol: Document 09/01/24 08:15 NM (Rec: 09/01/24 14:25 NM [id number]) OP Gait Assessment Gait Gait Assistance Required: Standby Assistance Distance (Feet) 150 Assistive Devices Assistive Device Gait Belt,Straight Cane Gait Deviations General Gait Pattern Antalgic,Decreased Stride Length,Decreased Feet Clearance,Narrow Based Gait Factors Limiting Gait Function Factors Limiting Gait Function Decreased Activity Tolerance, Decreased Strength,Limited Range of Motion,Pain,Poor Balance Comments Gait Comments using spc in R hand but places either far out to side or very close next to foot, poor coordination of spc and feet PT-OP-H Neuro Start: 09/01/24 07:21 Freq: Status: Active Protocol: Document 09/01/24 08:15 NM (Rec: 09/01/24 09:00 NM [id number]) Sensation Evaluation Comments Summary Comments BLE equally intact to light touch sensation PT-OP-J Posture/Palpation/Skin Start: 09/01/24 07:21 Freq: Status: Active Protocol: Document 09/01/24 08:15 NM (Rec: 09/01/24 14:25 NM [id number]) Posture Evaluation Position Standing Head/C-Spine Posture Forward Head L-Spine Posture Increased Lordosis Shoulder Posture (L) Rounded,(R) Rounded Pelvis Posture Anteriorly Tilted Comments Posture Comments Increased flexion at knees BLE . Trunk slightly flexed Palpation Assessment Location L knee Palpation Details Tenderness along medial knee near pes anserine, joint line, patella, femoral condule No tenderness at patella but decreased mobility Skin Assessment Other Assessments Skin Assessment Comments Has pitting edema on BLE from hips to ankles Old healed incision along L medial knee from previous surgery PT-OP-K Range of Motion Start: 09/01/24 07:21 Freq: Status: Active Protocol: Document 09/01/24 08:15 NM (Rec: 09/01/24 09:00 NM [id number]) Knee Goniometric Range of Motion Knee Right Flexion Active (degrees) 120 Extension Active (degrees) 3 Left Flexion Active (degrees) 110 Extension Active (degrees) 10 PT-OP-M Strength Start: 09/01/24 07:21 Freq: Status: Active Protocol: Document 09/01/24 08:15 NM (Rec: 09/01/24 09:00 NM [id number]) Hip Strength Hip Manual Muscle Testing Right Flexion (L2) 3+ Fair+ Abduction 4- Good- Adduction 4- Good- Comments hip flexion painful Left Flexion (L2) 3 Fair Abduction 4- Good- Adduction 4- Good- Comments hip flexion painful Knee Strength Knee Manual Muscle Testing Right Flexion (S2) 4- Good- Extension (L3) 4- Good- Comments no pain Left Flexion (S2) 4- Good- Extension (L3) 4- Good- Comments no pain Ankle/Foot Strength Ankle and Foot Manual Muscle Testing Right Dorsiflexion (L4) 4- Good- Plantarflexion (S1) 4- Good- Left Dorsiflexion (L4) 4- Good- PT-OP-Q Treatments Start: 09/01/24 07:21 Freq: Status: Active Protocol: Document 09/06/24 11:35 NM (Rec: 09/06/24 12:22 NM [id number]) Therapeutic Exercises Supine Exercises mary stretch Supine Exercise Name with strap for quad stretch ( modified with opp leg in hooklying)- HEP Side bilateral Equipment Used gait belt assist Reps/Minutes 2x60 ea Comments cued gentle stretch; edu to have help w/ strap or don prior to setup hamstring stretch Supine Exercise Name HEP Side bilateral Equipment Used gait belt assist Reps/Minutes 2x60 ea Comments cued knee ext and breathwork Sitting Exercises LAQ Sitting Exercise Name trialed but d/c d/t knee pain TKE Sitting Exercise Name into ball Side left Resistance level 2 band Equipment Used blue malian ball Reps/Minutes 15x5 HS/Calf stretch Side left Equipment Used gait belt Reps/Minutes 60 Comments trialed before L Standing Exercises side steps Standing Exercise Name HEP Side bilateral Resistance level 2 band just below knees Reps/Minutes 2x25 ft ea direction Manual Therapy Treatment Consent Patient gave verbal consent for manual Yes treatment Soft Tissue Mobilization L knee Body Location quad, HS, calf Mobilization Type Rolling Intensity/Depth Moderate Body Position Hooklying Comments Distal > proximal for swelling management, rolling distal > proximal from calf, HS, quad. Monitored forp ain. Started with leg on bolster for swelling management then moved to hooklying without bolster for remaining manual treatment PT-OP-T Assessment and Plan Start: 09/01/24 07:21 Freq: Status: Active Protocol: Document 09/06/24 11:35 NM (Rec: 09/06/24 12:22 NM [id number]) Physical Therapy Assessment Goals Four Impairment TUG time 19.8 sec w/ spc, 20.4 w/o spc Prison Goal (LTG) Pt will decrease TUG time to < 18 seconds or less in order to demonstrate improved initial standing balance and gait speed for safety during community and household ambulation LTG Duration 8 weeks Three Impairment 6 MWT 856 ft w/ spc; wants to return to family walks Prison Goal (LTG) Pt will improve 6MWT distance with or without AD >900 ft in order to demonstrate improved BLE strength, balance, and pain management to participate in family walks if appropriate LTG Duration 8 weeks Two Impairment 5x STS time 21.7 seconds indicates limits in BLE strength Turf Sales Person Goal (LTG) Pt will decrease 5x STS time to <15 seconds (age-related norm) from 18 surface in order to demonstrate increased BLE strength for gait, balance, transfers, and in preparation for upcoming knee surgery LTG Duration 8 weeks One Impairment not performing HEP Short Term Goal (STG) Pt will report compliance at least 2x/wk with HEP in order to maximize progression with PT and transition to maintenance program in preparation for upcoming surgery STG Duration 3 weeks Prison Goal (LTG) Pt will report compliance at least 3x/wk with HEP in order to transition to maintenance program in preparation for upcoming surgery LTG Duration 8 weeks Assessment Summary Assessment Pt tolerated session fair. Increased time for all exercises due to set up and modifications for comfort/ safety. Reports mild L posterior knee pain following LAQ trial, remained for rest of session. Initiated hip flexor/quad and hamstring stretching with strap; educated for safety donning/ doffing strap before assuming position on bed. Education also on importance of knee ext during hamstring stretch vs height of stretch. Better tolerance for TKE into ball but isolated quad contraction challenging. Good feedback for side steps for hip strengthening. Pt would benefit from skilled PT for progressive strengthening of LLE in order to improve strength for transfers, gait, and functional mobility. Physical Therapy Plan Frequency and Duration Frequency of Treatment 2x/Week Duration of treatment (weeks) 8 Plan of Care Start Date 09/01/24 Plan of Care End Date 10/27/24 Therapeutic Interventions Therapeutic Interventions Balance Training,Gait Training ,Home Exercise Program,Joint Mobilizations,Manual Therapy, Neuromuscular Re-education, Orthotic/Prosthetic Management ,Patient/Caregiver Education, Self-Care/Home Management, Sensory Integration,Soft Tissue Mobilization,Taping, Therapeutic Activities, Therapeutic Exercises Modalities Cold Pack/Ice Massage,Hot Packs Next Visit Focus/Plan Next Note Type Treatment Note Next Visit Plan Begin hip and knee strengthening: seated hip abd, side steps, standing TKE HSC, hip 3 way, heel raises, toe raises. STS, progress to leg press. Manual therapy to L knee
--- NOTE | 2024-09-14 10:34 | PT.OTN ---
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 Reports grinding and clinking in L knee. Has not given out on him. Reports that R knee used to hurt prior to TKA, still has occasional pain but L knee is more problematic. He just had a watchman procedure in June, Dr. Duran; he is still going to cardiac rehab (cleared by Dr. Mayorga), unsure if cleared for PT. He is planning to get a L knee replacement before the end of the year, he went to ortho specialist yesterday. Pt reports that his knee has been bothering him for many years. He had a R TKA many years ago , reports has a tiny separation in the new knee joint. Presents with spc. He has stairs in his home but has has a downstairs bedroom that he has been living in. Has 3 steps at back porch to enter home (main entrance). He has swelling in B legs still. Just saw urologist, has been taking pills to reduce swelling in BLE. Swelling limits his shoes. Hx of back pain, has been treated. States that after last rehab stint, reports that he was able to lift his leg into car without assist and with less pain. Pt has had falls (3) within the last year but none since June when discharged from PT . Started using spc again after discharging from PT. PT-OP-C Subjective Start: 09/01/24 07:21 Freq: Status: Active Protocol: Document 09/14/24 09:41 NM (Rec: 09/14/24 10:34 NM [id number]) OP-PT Subjective Patient Comments Patient Comments Pt reports L knee is lousy. He states 5/10 L knee pain. States R knee has been bothering him, points to quad. He does not have a surgery date yet. Presents with spc but not using spc; states has not been using spc at home, only in community. Has to use upstairs bed for mary stretch PT-OP-E Functional Tests Start: 09/01/24 07:21 Freq: Status: Active Protocol: Document 09/01/24 08:15 NM (Rec: 09/01/24 09:00 NM [id number]) Functional Tests 6 Minute Walk Test Distance 856 ft Device Used spc Comments pain in L and R knee Five Times Sit to Stand Test Score 21.72 seconds Comments 18 chair, no knee pain Timed Up and Go (TUG) Score 19.8 sec w/ spc; 20.4 sec w/o spc Comments w/ spc and w/o spc PT-OP-F Manual Assessment Start: 09/01/24 07:21 Freq: Status: Active Protocol: Document 09/01/24 08:15 NM (Rec: 09/01/24 09:00 NM [id number]) Manual Assessments Soft Tissue Assessment Soft Tissue Mobility Assessment Demos increased restrictions of B hip ER, adductors, hamstrings, quads, hip flexors Joint Mobility Assessment Joint Mobility Assessment L knee stiff, demos crepitus and catching with knee flex/ extension especially at patella PT-OP-G Mobility & Gait Start: 09/01/24 07:21 Freq: Status: Active Protocol: Document 09/01/24 08:15 NM (Rec: 09/01/24 14:25 NM [id number]) OP Gait Assessment Gait Gait Assistance Required: Standby Assistance Distance (Feet) 150 Assistive Devices Assistive Device Gait Belt,Straight Cane Gait Deviations General Gait Pattern Antalgic,Decreased Stride Length,Decreased Feet Clearance,Narrow Based Gait Factors Limiting Gait Function Factors Limiting Gait Function Decreased Activity Tolerance, Decreased Strength,Limited Range of Motion,Pain,Poor Balance Comments Gait Comments using spc in R hand but places either far out to side or very close next to foot, poor coordination of spc and feet PT-OP-H Neuro Start: 09/01/24 07:21 Freq: Status: Active Protocol: Document 09/01/24 08:15 NM (Rec: 09/01/24 09:00 NM [id number]) Sensation Evaluation Comments Summary Comments BLE equally intact to light touch sensation PT-OP-J Posture/Palpation/Skin Start: 09/01/24 07:21 Freq: Status: Active Protocol: Document 09/01/24 08:15 NM (Rec: 09/01/24 14:25 NM [id number]) Posture Evaluation Position Standing Head/C-Spine Posture Forward Head L-Spine Posture Increased Lordosis Shoulder Posture (L) Rounded,(R) Rounded Pelvis Posture Anteriorly Tilted Comments Posture Comments Increased flexion at knees BLE . Trunk slightly flexed Palpation Assessment Location L knee Palpation Details Tenderness along medial knee near pes anserine, joint line, patella, femoral condule No tenderness at patella but decreased mobility Skin Assessment Other Assessments Skin Assessment Comments Has pitting edema on BLE from hips to ankles Old healed incision along L medial knee from previous surgery PT-OP-K Range of Motion Start: 09/01/24 07:21 Freq: Status: Active Protocol: Document 09/01/24 08:15 NM (Rec: 09/01/24 09:00 NM [id number]) Knee Goniometric Range of Motion Knee Right Flexion Active (degrees) 120 Extension Active (degrees) 3 Left Flexion Active (degrees) 110 Extension Active (degrees) 10 PT-OP-M Strength Start: 09/01/24 07:21 Freq: Status: Active Protocol: Document 09/01/24 08:15 NM (Rec: 09/01/24 09:00 NM [id number]) Hip Strength Hip Manual Muscle Testing Right Flexion (L2) 3+ Fair+ Abduction 4- Good- Adduction 4- Good- Comments hip flexion painful Left Flexion (L2) 3 Fair Abduction 4- Good- Adduction 4- Good- Comments hip flexion painful Knee Strength Knee Manual Muscle Testing Right Flexion (S2) 4- Good- Extension (L3) 4- Good- Comments no pain Left Flexion (S2) 4- Good- Extension (L3) 4- Good- Comments no pain Ankle/Foot Strength Ankle and Foot Manual Muscle Testing Right Dorsiflexion (L4) 4- Good- Plantarflexion (S1) 4- Good- Left Dorsiflexion (L4) 4- Good- PT-OP-Q Treatments Start: 09/01/24 07:21 Freq: Status: Active Protocol: Document 09/14/24 09:41 NM (Rec: 09/14/24 10:34 NM [id number]) Cardio Equipment Recumbent Stepper (Sci-Fit) Duration (Minutes) 6 Resistance 3 Seat Position 12>10 for knee flex Other warm up; LE only Therapeutic Exercises Supine Exercises mary stretch Supine Exercise Name HEP review @ pt request Side bilateral Resistance with strap for quad stretch ( modified with opp leg in hooklying) Equipment Used gait belt assist, opp leg in modified hooklying Reps/Minutes 60 ea- self set up w/ inc time Comments cued gentle stretch; edu to perform B not just R side hamstring stretch Supine Exercise Name verbal review at pt request ( did not perform) Comments edu to keep knee straight, not raise leg up as much as in photo Sidelying Exercises quad stretch Sidelying Exercise Name trialed for pt comfort and safety Side bilateral Equipment Used with strap Reps/Minutes 60 ea Comments cued hip ext for more quad stretch Standing Exercises minisquat Standing Exercise Name 1. hip hinge, 2. minisquat Side bilateral Resistance level 3 band at thighs Equipment Used standard chair behind pt for safety Reps/Minutes 1. 5, 2. 2x8 Comments verbal and tactiles cues for hinge; cued knees not closer to wall calf raise Side bilateral Equipment Used B hand support on bar Reps/Minutes 20 Comments knees ext; cued less fwd translation calf stretch Standing Exercise Name 1. gastrocnemius, 2. soleus Side bilateral Equipment Used ANGIE Reps/Minutes 2x60 [address] Standing Exercise Name hip flex, abd, ext (HEP) Side bilateral Resistance level 3 band Equipment Used 1 hand support at bar for balance Reps/Minutes 10 ea Comments cued slight knee flex TKE Side left Resistance level 3 band Equipment Used PT holding bands Reps/Minutes 15x3 PT-OP-T Assessment and Plan Start: 09/01/24 07:21 Freq: Status: Active Protocol: Document 09/14/24 09:41 NM (Rec: 09/14/24 10:34 NM [id number]) Physical Therapy Assessment Goals Four Impairment TUG time 19.8 sec w/ spc, 20.4 w/o spc Piggyback Clerk Goal (LTG) Pt will decrease TUG time to < 18 seconds or less in order to demonstrate improved initial standing balance and gait speed for safety during community and household ambulation LTG Duration 8 weeks Three Impairment 6 MWT 856 ft w/ spc; wants to return to family walks Mcc Goal (LTG) Pt will improve 6MWT distance with or without AD >900 ft in order to demonstrate improved BLE strength, balance, and pain management to participate in family walks if appropriate LTG Duration 8 weeks Two Impairment 5x STS time 21.7 seconds indicates limits in BLE strength Mcc Goal (LTG) Pt will decrease 5x STS time to <15 seconds (age-related norm) from 18 surface in order to demonstrate increased BLE strength for gait, balance, transfers, and in preparation for upcoming knee surgery LTG Duration 8 weeks One Impairment not performing HEP Short Term Goal (STG) Pt will report compliance at least 2x/wk with HEP in order to maximize progression with PT and transition to maintenance program in preparation for upcoming surgery STG Duration 3 weeks Mcc Goal (LTG) Pt will report compliance at least 3x/wk with HEP in order to transition to maintenance program in preparation for upcoming surgery LTG Duration 8 weeks Assessment Summary Assessment Pt tolerated session well, no reports of knee pain during session. Emphasis on glute and quad strengthening. Cueing for hip hinge extensively and posture during mini-squat and hip 3 way. Better response to standing TKE this session vs LAQ last session. Initiated hip 3 way with band for strengthening, balance and proprioception. Reviewed stretching of hip flexors/quad in both supine and sidelying; pt prefers supine. PT educated on safety with stairs , recommended reducing frequency of stretch to avoid having to use stairs often at home. Pt verbalizes understanding. Recommended use of AD for household mobility as well. Pt would benefit from skilled PT for progressive strengthening and balance training in order to improve functional mobility and decrease fall risk. Physical Therapy Plan Frequency and Duration Frequency of Treatment 2x/Week Duration of treatment (weeks) 8 Plan of Care Start Date 09/01/24 Plan of Care End Date 10/27/24 Therapeutic Interventions Therapeutic Interventions Balance Training,Gait Training ,Home Exercise Program,Joint Mobilizations,Manual Therapy, Neuromuscular Re-education, Orthotic/Prosthetic Management ,Patient/Caregiver Education, Self-Care/Home Management, Sensory Integration,Soft Tissue Mobilization,Taping, Therapeutic Activities, Therapeutic Exercises Modalities Cold Pack/Ice Massage,Hot Packs Next Visit Focus/Plan Next Note Type Treatment Note Next Visit Plan Continue hip and knee strengthening: seated hip abd, side steps, standing TKE HSC, hip 3 way, heel raises, toe raises. STS, progress to leg press. Balance training and spc training with indoor/ outdoor if appropriate Manual therapy to L knee
--- NOTE | 2024-09-21 15:50 | PT.OTN ---
Current Diagnoses Unilateral primary osteoarthritis, left knee (09/21/24) Stiffness of left knee, not elsewhere classified (09/21/24) Other lack of coordination (09/21/24) Weakness (09/21/24) Physical Therapy Treatment Note PT-OP-A Visit Information Start: 09/01/24 07:21 Freq: Status: Active Protocol: Document 09/21/24 13:00 NM (Rec: 09/21/24 13:45 NM [id number]) Out-Patient Physical Therapy Visit Information Visit Information Visit Type Progress Note Visit Note Vitals L arm 151/81, after 2 min 153/73 50, 100% Visit Start Time 13:02 Visit Stop Time 13:42 Visit Number 5 Evaluation Information Evaluation Date 09/01/24 Precautions Precautions 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 Reports grinding and clinking in L knee. Has not given out on him. Reports that R knee used to hurt prior to TKA, still has occasional pain but L knee is more problematic. He just had a watchman procedure in June, Dr. Duran; he is still going to cardiac rehab (cleared by Dr. Mayorga), unsure if cleared for PT. He is planning to get a L knee replacement before the end of the year, he went to ortho specialist yesterday. Pt reports that his knee has been bothering him for many years. He had a R TKA many years ago , reports has a tiny separation in the new knee joint. Presents with spc. He has stairs in his home but has has a downstairs bedroom that he has been living in. Has 3 steps at back porch to enter home (main entrance). He has swelling in B legs still. Just saw urologist, has been taking pills to reduce swelling in BLE. Swelling limits his shoes. Hx of back pain, has been treated. States that after last rehab stint, reports that he was able to lift his leg into car without assist and with less pain. Pt has had falls (3) within the last year but none since June when discharged from PT . Started using spc again after discharging from PT. PT-OP-C Subjective Start: 09/01/24 07:21 Freq: Status: Active Protocol: Document 09/21/24 13:00 NM (Rec: 09/21/24 13:45 NM [id number]) OP-PT Subjective Patient Comments Patient Comments Pt got glasses fixed, has double vision occasionally. No change in knee pain. He will be having surgery on day before . PT-OP-E Functional Tests Start: 09/01/24 07:21 Freq: Status: Active Protocol: Document 09/01/24 08:15 NM (Rec: 09/01/24 09:00 NM [id number]) Functional Tests 6 Minute Walk Test Distance 856 ft Device Used spc Comments pain in L and R knee Five Times Sit to Stand Test Score 21.72 seconds Comments 18 chair, no knee pain Timed Up and Go (TUG) Score 19.8 sec w/ spc; 20.4 sec w/o spc Comments w/ spc and w/o spc PT-OP-F Manual Assessment Start: 09/01/24 07:21 Freq: Status: Active Protocol: Document 09/01/24 08:15 NM (Rec: 09/01/24 09:00 NM [id number]) Manual Assessments Soft Tissue Assessment Soft Tissue Mobility Assessment Demos increased restrictions of B hip ER, adductors, hamstrings, quads, hip flexors Joint Mobility Assessment Joint Mobility Assessment L knee stiff, demos crepitus and catching with knee flex/ extension especially at patella PT-OP-G Mobility & Gait Start: 09/01/24 07:21 Freq: Status: Active Protocol: Document 09/01/24 08:15 NM (Rec: 09/01/24 14:25 NM [id number]) OP Gait Assessment Gait Gait Assistance Required: Standby Assistance Distance (Feet) 150 Assistive Devices Assistive Device Gait Belt,Straight Cane Gait Deviations General Gait Pattern Antalgic,Decreased Stride Length,Decreased Feet Clearance,Narrow Based Gait Factors Limiting Gait Function Factors Limiting Gait Function Decreased Activity Tolerance, Decreased Strength,Limited Range of Motion,Pain,Poor Balance Comments Gait Comments using spc in R hand but places either far out to side or very close next to foot, poor coordination of spc and feet PT-OP-H Neuro Start: 09/01/24 07:21 Freq: Status: Active Protocol: Document 09/01/24 08:15 NM (Rec: 09/01/24 09:00 NM [id number]) Sensation Evaluation Comments Summary Comments BLE equally intact to light touch sensation PT-OP-J Posture/Palpation/Skin Start: 09/01/24 07:21 Freq: Status: Active Protocol: Document 09/01/24 08:15 NM (Rec: 09/01/24 14:25 NM [id number]) Posture Evaluation Position Standing Head/C-Spine Posture Forward Head L-Spine Posture Increased Lordosis Shoulder Posture (L) Rounded,(R) Rounded Pelvis Posture Anteriorly Tilted Comments Posture Comments Increased flexion at knees BLE . Trunk slightly flexed Palpation Assessment Location L knee Palpation Details Tenderness along medial knee near pes anserine, joint line, patella, femoral condule No tenderness at patella but decreased mobility Skin Assessment Other Assessments Skin Assessment Comments Has pitting edema on BLE from hips to ankles Old healed incision along L medial knee from previous surgery PT-OP-K Range of Motion Start: 09/01/24 07:21 Freq: Status: Active Protocol: Document 09/01/24 08:15 NM (Rec: 09/01/24 09:00 NM [id number]) Knee Goniometric Range of Motion Knee Right Flexion Active (degrees) 120 Extension Active (degrees) 3 Left Flexion Active (degrees) 110 Extension Active (degrees) 10 PT-OP-M Strength Start: 09/01/24 07:21 Freq: Status: Active Protocol: Document 09/01/24 08:15 NM (Rec: 09/01/24 09:00 NM [id number]) Hip Strength Hip Manual Muscle Testing Right Flexion (L2) 3+ Fair+ Abduction 4- Good- Adduction 4- Good- Comments hip flexion painful Left Flexion (L2) 3 Fair Abduction 4- Good- Adduction 4- Good- Comments hip flexion painful Knee Strength Knee Manual Muscle Testing Right Flexion (S2) 4- Good- Extension (L3) 4- Good- Comments no pain Left Flexion (S2) 4- Good- Extension (L3) 4- Good- Comments no pain Ankle/Foot Strength Ankle and Foot Manual Muscle Testing Right Dorsiflexion (L4) 4- Good- Plantarflexion (S1) 4- Good- Left Dorsiflexion (L4) 4- Good- PT-OP-Q Treatments Start: 09/01/24 07:21 Freq: Status: Active Protocol: Document 09/21/24 13:00 NM (Rec: 09/21/24 13:45 NM [id number]) Therapeutic Exercises Standing Exercises resisted stepping Standing Exercise Name fwd and retro stepping Side bilateral Resistance level 2 band at ankles Equipment Used hand support on ballet bar Reps/Minutes 2x25 ft ea minisquat Standing Exercise Name mini-squat Side bilateral Resistance level 2 band at thigh Reps/Minutes 2x10 Comments cued hip hinge before knee flex; mild inc knee pain; cued dec depth side steps Standing Exercise Name HEP review Side bilateral Resistance level 2 band just below knees > ankles Equipment Used hand support on ballet bar Reps/Minutes 2x25 ft ea direction Comments cued not to drag trailing foot Gait Training Gait Activity spc Treatment Focus 2 pt pattenrn coordinating Comments Moderate cueing for pt to place spc on ground and to perform w/ 2 pt pattern instead of taking numerous steps between spc placement. Improved to more automatic performance w/ less cueing from PT but still requires maximal cues to perform correctly initially TUG Device Used spc Level of Assistance close SBA Comments 21 seconds time lost with STS and transfers to chair as pt tries to begin backing up to chair from several feet away vs going to chair and then turning at chair 6 MWT Distance/Duration 811 ft Treatment Focus endurance, spc placement, coordination Comments Begins to demo increased trunk sway and less LLE advancement as fatigues, about minute 3. uses spc intermittently PT-OP-T Assessment and Plan Start: 09/01/24 07:21 Freq: Status: Active Protocol: Document 09/21/24 13:00 NM (Rec: 09/21/24 13:45 NM [id number]) Physical Therapy Assessment Goals Four Impairment TUG time 19.8 sec w/ spc, 20.4 w/o spc Power Engineer Goal (LTG) Pt will decrease TUG time to < 18 seconds or less in order to demonstrate improved initial standing balance and gait speed for safety during community and household ambulation 09/21/24: 21 sec LTG Duration 8 weeks NOT MET Three Impairment 6 MWT 856 ft w/ spc; wants to return to family walks Power Engineer Goal (LTG) Pt will improve 6MWT distance with or without AD >900 ft in order to demonstrate improved BLE strength, balance, and pain management to participate in family walks if appropriate 09/21/24: ambulated 811 ft LTG Duration 8 weeks NOT MET Two Impairment 5x STS time 21.7 seconds indicates limits in BLE strength Power Engineer Goal (LTG) Pt will decrease 5x STS time to <15 seconds (age-related norm) from 18 surface in order to demonstrate increased BLE strength for gait, balance, transfers, and in preparation for upcoming knee surgery 09/21/24: continues to require increased time w/ STS due to knee pain and difficulty with hip hinge LTG Duration 8 weeks NOT MET One Impairment not performing HEP Short Term Goal (STG) Pt will report compliance at least 2x/wk with HEP in order to maximize progression with PT and transition to maintenance program in preparation for upcoming surgery STG Duration 3 weeks Shelter Goal (LTG) Pt will report compliance at least 3x/wk with HEP in order to transition to maintenance program in preparation for upcoming surgery 10/01/24: performing daily LTG Duration 8 weeks MET Progress Towards Goals Progress Towards Goals Progressing Toward Goals,Slow Progress due to Activity Tolerance,Slow Progress due to Medical Issues Assessment Summary Assessment Pt tolerated session fair. Needs fewer cues for hip hinge today with minisquat vs knee flexion. Still needs cues to limit depth for pain management. Able to progress to longer lever length for resisted stepping, added dynamic hip flexion and extension with stepping vs more static hip 3 way. PT and pt discussed that pt will need new referral from surgeon in order to return to PT following surgery; must have re-evaluation following surgery once cleared to start PT. Education on need for FWW following knee surgery, reocmmended getting referral and FWW tunde. Emphasis on gait training with spc for AD coordiantion and to offload leg. Pt has tendency to carry spc or use intermittently but has less knee pain when using correctly in 2 pt pattern. Needs maximal cues for 2pt patterning; has less trunk sway laterally as fatigues with spc use Physical Therapy Plan Frequency and Duration Frequency of Treatment 2x/Week Duration of treatment (weeks) 8 Plan of Care Start Date 09/01/24 Plan of Care End Date 10/27/24 Therapeutic Interventions Therapeutic Interventions Balance Training,Gait Training ,Home Exercise Program,Joint Mobilizations,Manual Therapy, Neuromuscular Re-education, Orthotic/Prosthetic Management ,Patient/Caregiver Education, Self-Care/Home Management, Sensory Integration,Soft Tissue Mobilization,Taping, Therapeutic Activities, Therapeutic Exercises Modalities Cold Pack/Ice Massage,Hot Packs Next Visit Focus/Plan Next Note Type Treatment Note Next Visit Plan Address goals. Transfers with spc and 2pt gait training. If brings FWW, fit to height and practice transfers robin with retro stepping. Continue hip and quad strengthening: seated hip abd, side steps, standing TKE HSC, hip 3 way, heel raises, toe raises. STS, progress to leg press. Balance training and spc training with indoor/outdoor if appropriate Manual therapy to L knee
--- NOTE | 2024-09-26 17:48 | PT.OTN ---
Current Diagnoses Unilateral primary osteoarthritis, left knee (09/26/24) Stiffness of left knee, not elsewhere classified (09/26/24) Other lack of coordination (09/26/24) Weakness (09/26/24) Physical Therapy Treatment Note PT-OP-A Visit Information Start: 09/01/24 07:21 Freq: Status: Active Protocol: Document 09/26/24 15:52 NBM (Rec: 09/26/24 17:48 NBM [id number]) Out-Patient Physical Therapy Visit Information Visit Information Visit Type Treatment Note Visit Start Time 15:25 Visit Stop Time 16:10 Visit Number 6 Number of [employer]ERING Visits 1 Evaluation Information Evaluation Date 09/01/24 PT-OP-B Current Condition Start: 09/01/24 07:21 Freq: Status: Active Protocol: Document 09/01/24 08:15 NM (Rec: 09/01/24 09:00 NM [id number]) Current Condition History of Current Condition Onset Date chronic Current Complaints pain, weakness, decreased mobility History of Current Condition Pt presents with L knee pain. Reports grinding and clinking in L knee. Has not given out on him. Reports that R knee used to hurt prior to TKA, still has occasional pain but L knee is more problematic. He just had a watchman procedure in June, Dr. Duran; he is still going to cardiac rehab (cleared by Dr. Mayorga), unsure if cleared for PT. He is planning to get a L knee replacement before the end of the year, he went to ortho specialist yesterday. Pt reports that his knee has been bothering him for many years. He had a R TKA many years ago , reports has a tiny separation in the new knee joint. Presents with spc. He has stairs in his home but has has a downstairs bedroom that he has been living in. Has 3 steps at back porch to enter home (main entrance). He has swelling in B legs still. Just saw urologist, has been taking pills to reduce swelling in BLE. Swelling limits his shoes. Hx of back pain, has been treated. States that after last rehab stint, reports that he was able to lift his leg into car without assist and with less pain. Pt has had falls (3) within the last year but none since June when discharged from PT . Started using spc again after discharging from PT. PT-OP-C Subjective Start: 09/01/24 07:21 Freq: Status: Active Protocol: Document 09/26/24 15:52 NBM (Rec: 09/26/24 17:48 NBM [id number]) OP-PT Subjective Patient Comments Patient Comments Alex brings HEP, SPC and FWW for training in preparation for knee surgery 10/04. He will be having surgery on day before . PT-OP-E Functional Tests Start: 09/01/24 07:21 Freq: Status: Active Protocol: Document 09/01/24 08:15 NM (Rec: 09/01/24 09:00 NM [id number]) Functional Tests 6 Minute Walk Test Distance 856 ft Device Used spc Comments pain in L and R knee Five Times Sit to Stand Test Score 21.72 seconds Comments 18 chair, no knee pain Timed Up and Go (TUG) Score 19.8 sec w/ spc; 20.4 sec w/o spc Comments w/ spc and w/o spc PT-OP-F Manual Assessment Start: 09/01/24 07:21 Freq: Status: Active Protocol: Document 09/01/24 08:15 NM (Rec: 09/01/24 09:00 NM [id number]) Manual Assessments Soft Tissue Assessment Soft Tissue Mobility Assessment Demos increased restrictions of B hip ER, adductors, hamstrings, quads, hip flexors Joint Mobility Assessment Joint Mobility Assessment L knee stiff, demos crepitus and catching with knee flex/ extension especially at patella PT-OP-G Mobility & Gait Start: 09/01/24 07:21 Freq: Status: Active Protocol: Document 09/01/24 08:15 NM (Rec: 09/01/24 14:25 NM [id number]) OP Gait Assessment Gait Gait Assistance Required: Standby Assistance Distance (Feet) 150 Assistive Devices Assistive Device Gait Belt,Straight Cane Gait Deviations General Gait Pattern Antalgic,Decreased Stride Length,Decreased Feet Clearance,Narrow Based Gait Factors Limiting Gait Function Factors Limiting Gait Function Decreased Activity Tolerance, Decreased Strength,Limited Range of Motion,Pain,Poor Balance Comments Gait Comments using spc in R hand but places either far out to side or very close next to foot, poor coordination of spc and feet PT-OP-H Neuro Start: 09/01/24 07:21 Freq: Status: Active Protocol: Document 09/01/24 08:15 NM (Rec: 09/01/24 09:00 NM [id number]) Sensation Evaluation Comments Summary Comments BLE equally intact to light touch sensation PT-OP-J Posture/Palpation/Skin Start: 09/01/24 07:21 Freq: Status: Active Protocol: Document 09/01/24 08:15 NM (Rec: 09/01/24 14:25 NM [id number]) Posture Evaluation Position Standing Head/C-Spine Posture Forward Head L-Spine Posture Increased Lordosis Shoulder Posture (L) Rounded,(R) Rounded Pelvis Posture Anteriorly Tilted Comments Posture Comments Increased flexion at knees BLE . Trunk slightly flexed Palpation Assessment Location L knee Palpation Details Tenderness along medial knee near pes anserine, joint line, patella, femoral condule No tenderness at patella but decreased mobility Skin Assessment Other Assessments Skin Assessment Comments Has pitting edema on BLE from hips to ankles Old healed incision along L medial knee from previous surgery PT-OP-K Range of Motion Start: 09/01/24 07:21 Freq: Status: Active Protocol: Document 09/01/24 08:15 NM (Rec: 09/01/24 09:00 NM [id number]) Knee Goniometric Range of Motion Knee Right Flexion Active (degrees) 120 Extension Active (degrees) 3 Left Flexion Active (degrees) 110 Extension Active (degrees) 10 PT-OP-M Strength Start: 09/01/24 07:21 Freq: Status: Active Protocol: Document 09/01/24 08:15 NM (Rec: 09/01/24 09:00 NM [id number]) Hip Strength Hip Manual Muscle Testing Right Flexion (L2) 3+ Fair+ Abduction 4- Good- Adduction 4- Good- Comments hip flexion painful Left Flexion (L2) 3 Fair Abduction 4- Good- Adduction 4- Good- Comments hip flexion painful Knee Strength Knee Manual Muscle Testing Right Flexion (S2) 4- Good- Extension (L3) 4- Good- Comments no pain Left Flexion (S2) 4- Good- Extension (L3) 4- Good- Comments no pain Ankle/Foot Strength Ankle and Foot Manual Muscle Testing Right Dorsiflexion (L4) 4- Good- Plantarflexion (S1) 4- Good- Left Dorsiflexion (L4) 4- Good- PT-OP-Q Treatments Start: 09/01/24 07:21 Freq: Status: Active Protocol: Document 09/26/24 15:52 [facility] (Rec: 09/26/24 17:48 [facility] [id number]) Therapeutic Exercises Sitting Exercises HS/Calf stretch Side bilateral Reps/Minutes 2x30 ea Comments R>L tightness, cues for pain- free ROM Gait Training Gait Activity stairs Description ascend/descend, no rails recip in prep for L knee surgery Device Used SPC in RUE Surface 4 6x3; 6 4 x2 Treatment Focus safety, patterning, upright posture Comments Initial cues for leading foot ascent vs descent, pt demos appropriate patterning w/ SPC in RUE with no cueing on 4 x2 , 6x2. HO to be provided next visit d/t printer error. FWW Description prep for 10/04 surgery Comments height adjustment not needed. ambulation w/ FWW fwd/ bwd, turns, transfer FWW<>chair using STSx5,x10 w/ cues for safe hand placement (pt able to sit/stand wo UE support, arms forward for counterbalance). spc Device Used hurrycane style in RUE Surface firm Treatment Focus 2 pt pattern coordinating Comments Pt enters clinic with inconsistent sequencing and occasionally picking up cane while speaking. After edu w/ visual demo of incorrect vs correct sequencing pt starts w / 2-pt patterning for about 8 steps before taking two steps between spc placement and eventual self-correction to 2- pt sequencing. 2-pt patterning does improve w/ cueing and repetition. PT-OP-T Assessment and Plan Start: 09/01/24 07:21 Freq: Status: Active Protocol: Document 09/26/24 15:52 [facility] (Rec: 09/26/24 17:48 [facility] [id number]) Physical Therapy Assessment Goals Four Impairment TUG time 19.8 sec w/ spc, 20.4 w/o spc Manager Goal (LTG) Pt will decrease TUG time to < 18 seconds or less in order to demonstrate improved initial standing balance and gait speed for safety during community and household ambulation 09/21/24: 21 sec LTG Duration 8 weeks NOT MET Three Impairment 6 MWT 856 ft w/ spc; wants to return to family walks Manager Goal (LTG) Pt will improve 6MWT distance with or without AD >900 ft in order to demonstrate improved BLE strength, balance, and pain management to participate in family walks if appropriate 09/21/24: ambulated 811 ft LTG Duration 8 weeks NOT MET Two Impairment 5x STS time 21.7 seconds indicates limits in BLE strength Manager Goal (LTG) Pt will decrease 5x STS time to <15 seconds (age-related norm) from 18 surface in order to demonstrate increased BLE strength for gait, balance, transfers, and in preparation for upcoming knee surgery 09/21/24: continues to require increased time w/ STS due to knee pain and difficulty with hip hinge LTG Duration 8 weeks NOT MET One Impairment not performing HEP Short Term Goal (STG) Pt will report compliance at least 2x/wk with HEP in order to maximize progression with PT and transition to maintenance program in preparation for upcoming surgery STG Duration 3 weeks Custodial Goal (LTG) Pt will report compliance at least 3x/wk with HEP in order to transition to maintenance program in preparation for upcoming surgery 09/21/24: performing daily LTG Duration 8 weeks MET Assessment Summary Assessment Alex presents with FWW, SPC and HEP handouts. Per discussion with evaluating PT treatment focus on stair training with SPC and gait training w/ FWW in preparation for 10/04 L knee surgery, and pt advised plan to likely discharge after 10/03 visit, 10/10 and 10/13 PT visits likely to be cancelled but will be determined after L knee surgery. Alex's FWW height does not need adjusting and he is trained on ambulating w/ FWW w/ focus on safety, reciprocal gait fwd/bwd, turns , and STS. He requires cues for safe hand placement w/ STS and is safest w/ fwd arm reach for counterbalance and improved hip hinge w/ both sit and stand. He lacks carryover w/ SPC for 2-pt sequencing from last visit but after cueing and repetition he demos more consistent 2-pt patterning w/ ambulation. He is very consistent w/ 2-pt reciprocal patterning maintaining upright posture on 4 and 6 stairs using SPC in LUE with both ascent and descent without cueing or handrails to simulate 3x 4 steps to enter home after surgery. Physical Therapy Plan Frequency and Duration Frequency of Treatment 2x/Week Duration of treatment (weeks) 8 Plan of Care Start Date 09/01/24 Plan of Care End Date 10/27/24 Therapeutic Interventions Therapeutic Interventions Balance Training,Gait Training ,Home Exercise Program,Joint Mobilizations,Manual Therapy, Neuromuscular Re-education, Orthotic/Prosthetic Management ,Patient/Caregiver Education, Self-Care/Home Management, Sensory Integration,Soft Tissue Mobilization,Taping, Therapeutic Activities, Therapeutic Exercises Modalities Cold Pack/Ice Massage,Hot Packs Next Visit Focus/Plan Next Note Type Treatment Note Next Visit Plan Check stair training w/ SPC and 2pt gait training for carryover and provide HO. Address goals. Transfers with spc. Continue w/ FWW practice transfers robin with retro stepping. Continue hip and quad strengthening: seated hip abd, side steps, standing TKE HSC, hip 3 way, heel raises, toe raises. STS, progress to leg press. Balance training and spc training with indoor/ outdoor if appropriate Manual therapy to L knee
--- NOTE | 2024-09-26 17:50 | PT.OTN ---
Current Diagnoses Unilateral primary osteoarthritis, left knee (09/26/24) Stiffness of left knee, not elsewhere classified (09/26/24) Other lack of coordination (09/26/24) Weakness (09/26/24) Physical Therapy Treatment Note PT-OP-A Visit Information Start: 09/01/24 07:21 Freq: Status: Active Protocol: Document 09/26/24 15:52 NBM (Rec: 09/26/24 17:48 NBM [id number]) Out-Patient Physical Therapy Visit Information Visit Information Visit Type Treatment Note Visit Start Time 15:25 Visit Stop Time 16:10 Visit Number 6 Number of EXPERIMENTAL DISPLAY BUILDER Visits 1 Evaluation Information Evaluation Date 09/01/24 Precautions Precautions monitor vitals d/t watchman procedure (heart), TIA/stroke hx Back pain PT-OP-B Current Condition Start: 09/01/24 07:21 Freq: Status: Active Protocol: Document 09/01/24 08:15 NM (Rec: 09/01/24 09:00 NM [id number]) Current Condition History of Current Condition Onset Date chronic Current Complaints pain, weakness, decreased mobility History of Current Condition Pt presents with L knee pain. Reports grinding and clinking in L knee. Has not given out on him. Reports that R knee used to hurt prior to TKA, still has occasional pain but L knee is more problematic. He just had a watchman procedure in June, Dr. Duran; he is still going to cardiac rehab (cleared by Dr. Mayorga), unsure if cleared for PT. He is planning to get a L knee replacement before the end of the year, he went to ortho specialist yesterday. Pt reports that his knee has been bothering him for many years. He had a R TKA many years ago , reports has a tiny separation in the new knee joint. Presents with spc. He has stairs in his home but has has a downstairs bedroom that he has been living in. Has 3 steps at back porch to enter home (main entrance). He has swelling in B legs still. Just saw urologist, has been taking pills to reduce swelling in BLE. Swelling limits his shoes. Hx of back pain, has been treated. States that after last rehab stint, reports that he was able to lift his leg into car without assist and with less pain. Pt has had falls (3) within the last year but none since June when discharged from PT . Started using spc again after discharging from PT. PT-OP-C Subjective Start: 09/01/24 07:21 Freq: Status: Active Protocol: Document 09/26/24 15:52 NBM (Rec: 09/26/24 17:48 NBM [id number]) OP-PT Subjective Patient Comments Patient Comments Alex brings HEP, SPC and FWW for training in preparation for knee surgery 10/04. He will be having surgery on day before . PT-OP-E Functional Tests Start: 09/01/24 07:21 Freq: Status: Active Protocol: Document 09/01/24 08:15 NM (Rec: 09/01/24 09:00 NM [id number]) Functional Tests 6 Minute Walk Test Distance 856 ft Device Used spc Comments pain in L and R knee Five Times Sit to Stand Test Score 21.72 seconds Comments 18 chair, no knee pain Timed Up and Go (TUG) Score 19.8 sec w/ spc; 20.4 sec w/o spc Comments w/ spc and w/o spc PT-OP-F Manual Assessment Start: 09/01/24 07:21 Freq: Status: Active Protocol: Document 09/01/24 08:15 NM (Rec: 09/01/24 09:00 NM [id number]) Manual Assessments Soft Tissue Assessment Soft Tissue Mobility Assessment Demos increased restrictions of B hip ER, adductors, hamstrings, quads, hip flexors Joint Mobility Assessment Joint Mobility Assessment L knee stiff, demos crepitus and catching with knee flex/ extension especially at patella PT-OP-G Mobility & Gait Start: 09/01/24 07:21 Freq: Status: Active Protocol: Document 09/01/24 08:15 NM (Rec: 09/01/24 14:25 NM [id number]) OP Gait Assessment Gait Gait Assistance Required: Standby Assistance Distance (Feet) 150 Assistive Devices Assistive Device Gait Belt,Straight Cane Gait Deviations General Gait Pattern Antalgic,Decreased Stride Length,Decreased Feet Clearance,Narrow Based Gait Factors Limiting Gait Function Factors Limiting Gait Function Decreased Activity Tolerance, Decreased Strength,Limited Range of Motion,Pain,Poor Balance Comments Gait Comments using spc in R hand but places either far out to side or very close next to foot, poor coordination of spc and feet PT-OP-H Neuro Start: 09/01/24 07:21 Freq: Status: Active Protocol: Document 09/01/24 08:15 NM (Rec: 09/01/24 09:00 NM [id number]) Sensation Evaluation Comments Summary Comments BLE equally intact to light touch sensation PT-OP-J Posture/Palpation/Skin Start: 09/01/24 07:21 Freq: Status: Active Protocol: Document 09/01/24 08:15 NM (Rec: 09/01/24 14:25 NM [id number]) Posture Evaluation Position Standing Head/C-Spine Posture Forward Head L-Spine Posture Increased Lordosis Shoulder Posture (L) Rounded,(R) Rounded Pelvis Posture Anteriorly Tilted Comments Posture Comments Increased flexion at knees BLE . Trunk slightly flexed Palpation Assessment Location L knee Palpation Details Tenderness along medial knee near pes anserine, joint line, patella, femoral condule No tenderness at patella but decreased mobility Skin Assessment Other Assessments Skin Assessment Comments Has pitting edema on BLE from hips to ankles Old healed incision along L medial knee from previous surgery PT-OP-K Range of Motion Start: 09/01/24 07:21 Freq: Status: Active Protocol: Document 09/01/24 08:15 NM (Rec: 09/01/24 09:00 NM [id number]) Knee Goniometric Range of Motion Knee Right Flexion Active (degrees) 120 Extension Active (degrees) 3 Left Flexion Active (degrees) 110 Extension Active (degrees) 10 PT-OP-M Strength Start: 09/01/24 07:21 Freq: Status: Active Protocol: Document 09/01/24 08:15 NM (Rec: 09/01/24 09:00 NM [id number]) Hip Strength Hip Manual Muscle Testing Right Flexion (L2) 3+ Fair+ Abduction 4- Good- Adduction 4- Good- Comments hip flexion painful Left Flexion (L2) 3 Fair Abduction 4- Good- Adduction 4- Good- Comments hip flexion painful Knee Strength Knee Manual Muscle Testing Right Flexion (S2) 4- Good- Extension (L3) 4- Good- Comments no pain Left Flexion (S2) 4- Good- Extension (L3) 4- Good- Comments no pain Ankle/Foot Strength Ankle and Foot Manual Muscle Testing Right Dorsiflexion (L4) 4- Good- Plantarflexion (S1) 4- Good- Left Dorsiflexion (L4) 4- Good- PT-OP-Q Treatments Start: 09/01/24 07:21 Freq: Status: Active Protocol: Document 09/26/24 15:52 NBM (Rec: 09/26/24 17:48 [facility] [id number]) Therapeutic Exercises Sitting Exercises HS/Calf stretch Side bilateral Reps/Minutes 2x30 ea Comments R>L tightness, cues for pain- free ROM Gait Training Gait Activity stairs Description ascend/descend, no rails recip in prep for L knee surgery Device Used SPC in RUE Surface 4 6x3; 6 4 x2 Treatment Focus safety, patterning, upright posture Comments Initial cues for leading foot ascent vs descent, pt demos appropriate patterning w/ SPC in RUE with no cueing on 4 x2 , 6x2. HO to be provided next visit d/t printer error. FWW Description prep for 10/04 surgery Comments height adjustment not needed. ambulation w/ FWW fwd/ bwd, turns, transfer FWW<>chair using STSx5,x10 w/ cues for safe hand placement (pt able to sit/stand wo UE support, arms forward for counterbalance). spc Device Used hurrycane style in RUE Surface firm Treatment Focus 2 pt pattern coordinating Comments Pt enters clinic with inconsistent sequencing and occasionally picking up cane while speaking. After edu w/ visual demo of incorrect vs correct sequencing pt starts w / 2-pt patterning for about 8 steps before taking two steps between spc placement and eventual self-correction to 2- pt sequencing. 2-pt patterning does improve w/ cueing and repetition. PT-OP-T Assessment and Plan Start: 09/01/24 07:21 Freq: Status: Active Protocol: Document 09/26/24 15:52 NB (Rec: 09/26/24 17:48 [facility] [id number]) Physical Therapy Assessment Goals Four Impairment TUG time 19.8 sec w/ spc, 20.4 w/o spc Chcf Goal (LTG) Pt will decrease TUG time to < 18 seconds or less in order to demonstrate improved initial standing balance and gait speed for safety during community and household ambulation 09/21/24: 21 sec LTG Duration 8 weeks NOT MET Three Impairment 6 MWT 856 ft w/ spc; wants to return to family walks Chcf Goal (LTG) Pt will improve 6MWT distance with or without AD >900 ft in order to demonstrate improved BLE strength, balance, and pain management to participate in family walks if appropriate 09/21/24: ambulated 811 ft LTG Duration 8 weeks NOT MET Two Impairment 5x STS time 21.7 seconds indicates limits in BLE strength Financial Analyst Accountant Goal (LTG) Pt will decrease 5x STS time to <15 seconds (age-related norm) from 18 surface in order to demonstrate increased BLE strength for gait, balance, transfers, and in preparation for upcoming knee surgery 09/21/24: continues to require increased time w/ STS due to knee pain and difficulty with hip hinge LTG Duration 8 weeks NOT MET One Impairment not performing HEP Short Term Goal (STG) Pt will report compliance at least 2x/wk with HEP in order to maximize progression with PT and transition to maintenance program in preparation for upcoming surgery STG Duration 3 weeks Financial Analyst Accountant Goal (LTG) Pt will report compliance at least 3x/wk with HEP in order to transition to maintenance program in preparation for upcoming surgery 09/21/24: performing daily LTG Duration 8 weeks MET Assessment Summary Assessment Alex presents with FWW, SPC and HEP handouts. Per discussion with evaluating PT treatment focus on stair training with SPC and gait training w/ FWW in preparation for 10/04 L knee surgery, and pt advised plan to likely discharge after 10/03 visit, 10/10 and 10/13 PT visits likely to be cancelled but will be determined after L knee surgery. Alex's FWW height does not need adjusting and he is trained on ambulating w/ FWW w/ focus on safety, reciprocal gait fwd/bwd, turns , and STS. He requires cues for safe hand placement w/ STS and is safest w/ fwd arm reach for counterbalance and improved hip hinge w/ both sit and stand. He lacks carryover w/ SPC for 2-pt sequencing from last visit but after cueing and repetition he demos more consistent 2-pt patterning w/ ambulation. He is very consistent w/ 2-pt reciprocal patterning maintaining upright posture on 4 and 6 stairs using SPC in LUE with both ascent and descent without cueing or handrails to simulate 3x 4 steps to enter home after surgery. Physical Therapy Plan Frequency and Duration Frequency of Treatment 2x/Week Duration of treatment (weeks) 8 Plan of Care Start Date 09/01/24 Plan of Care End Date 10/27/24 Therapeutic Interventions Therapeutic Interventions Balance Training,Gait Training ,Home Exercise Program,Joint Mobilizations,Manual Therapy, Neuromuscular Re-education, Orthotic/Prosthetic Management ,Patient/Caregiver Education, Self-Care/Home Management, Sensory Integration,Soft Tissue Mobilization,Taping, Therapeutic Activities, Therapeutic Exercises Modalities Cold Pack/Ice Massage,Hot Packs Next Visit Focus/Plan Next Note Type Treatment Note Next Visit Plan Check stair training w/ SPC and 2pt gait training for carryover and provide HO. Address goals. Transfers with spc. Continue w/ FWW practice transfers robin with retro stepping. Continue hip and quad strengthening: seated hip abd, side steps, standing TKE HSC, hip 3 way, heel raises, toe raises. STS, progress to leg press. Balance training and spc training with indoor/ outdoor if appropriate Manual therapy to L knee
--- NOTE | 2024-10-03 13:32 | PT-OP ANOTE ---
Pt arrives for PT appointment as scheduled but advises he received notice today after Cardiac Rehab that his knee surgery scheduled tomorrow is being postponed due to his tests yesterday which show fluid in the lungs and something else. Per discussion with evaluating PT Nakita pt is advised he needs to request clearance from his PCP to proceed with Physical Therapy (next visit 10/10) and Cardiac Rehab. help desk agent Scheduling notified and cancelled today's 10/03 PT visit accordingly. Vitals taken within pt's norms: BP 167/85, SO2 100%, HR 45-57 bpm.
--- NOTE | 2024-10-09 16:03 | PT-OP ANOTE ---
PT called and left voicemail for pt to determine if cleared to return to PT following fluid in lungs mentioned at 10/03 appt, which canceled pt's 10/04 scheduled surgery. Reminded pt that needs ok from PCP to return to PT. Recommended that pt get ok to return prior to visit otherwise will need to cancel appt
--- NOTE | 2024-10-10 10:20 | PT-OP ANOTE ---
Pt presents to clinic for appt but does not have clearance from PCP to return following last canceled visit on 10/03 for fluid in lungs. PT had called and left voicemail for pt yesterday to contact PCP prior to PT appt for clearance but pt did not. He was sick over the weekend, presents with chest and head congestion. Pt also less alert than usual, providing answers that are not typical for pt (Have you been coughing? I haven't had coffee for weeks. and Do you have any dizziness or lightheadedness? Yes. Which one? No, I'm not dizzy or lightheaded.) Pt also having difficulty remembering conversations (e.g. to call MD) even with written notes in front of pt with clear instructions. PT took pt vitals L arm brachial in sitting at rest 113/59 mmHg 98% 54 bpm then after 5 min rest 109/59 mmHg 100% 48 bpm. This is abnormally low for pt compared to vitals taken previously at start of session for pt (e.g. 09/19 readings 151/81 mmHg). PT educated pt on normal vitals and provided pt with numbers, recommending that pt continue to monitor and alert MD of low readings, go to ED if lower especially with activity. Since surgery canceled due to fluid in lungs, PT requested via [employer] last session on 10/03 clearance from MD to return to PT. Session will be canceled today 10/10. Pt still needs clearance to return to 10/13 appt, pt aware and verbalizes understanding. Pt will be waitlisted and future appt will be changed from re-evaluation to treatment visits to assess pt progress with plan of care
--- NOTE | 2024-10-12 10:59 | PT-OP ANOTE ---
Addendum entered and electronically signed by Nakita Carney, PT 10/12/24 15:47: PT called and left voicemail for pt that office received go ahead from PCP for pt to continue with PT Original Note: Pt's PCP called and spoke to Quan at director of front office, pt ok to return to PT. Currently being treated for condition
--- NOTE | 2024-10-18 15:35 | PT.OTN ---
Current Diagnoses Unilateral primary osteoarthritis, left knee (10/18/24) Stiffness of left knee, not elsewhere classified (10/18/24) Other lack of coordination (10/18/24) Weakness (10/18/24) Physical Therapy Treatment Note PT-OP-A Visit Information Start: 09/01/24 07:21 Freq: Status: Active Protocol: Document 10/18/24 14:34 NM (Rec: 10/18/24 15:35 NM [id number]) Out-Patient Physical Therapy Visit Information Visit Information Visit Type Treatment Note Visit Note 95/48 98%, 50 bpm, 99/53 R arm seated at rest after 5 min break 109/57 mmHg in supine, 44 bpm Visit Start Time 14:38 Visit Stop Time 15:16 Visit Number 9 Evaluation Information Evaluation Date 09/01/24 Precautions Precautions 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 Reports grinding and clinking in L knee. Has not given out on him. Reports that R knee used to hurt prior to TKA, still has occasional pain but L knee is more problematic. He just had a watchman procedure in June, Dr. Duran; he is still going to cardiac rehab (cleared by Dr. Mayorga), unsure if cleared for PT. He is planning to get a L knee replacement before the end of the year, he went to ortho specialist yesterday. Pt reports that his knee has been bothering him for many years. He had a R TKA many years ago , reports has a tiny separation in the new knee joint. Presents with spc. He has stairs in his home but has has a downstairs bedroom that he has been living in. Has 3 steps at back porch to enter home (main entrance). He has swelling in B legs still. Just saw urologist, has been taking pills to reduce swelling in BLE. Swelling limits his shoes. Hx of back pain, has been treated. States that after last rehab stint, reports that he was able to lift his leg into car without assist and with less pain. Pt has had falls (3) within the last year but none since June when discharged from PT . Started using spc again after discharging from PT. PT-OP-C Subjective Start: 09/01/24 07:21 Freq: Status: Active Protocol: Document 10/18/24 14:34 NM (Rec: 10/18/24 15:35 NM [id number]) OP-PT Subjective Patient Comments Patient Comments Pt reports not feeling well, states just wants to sleep. Saw Dr. Mayorga yesterday, states he is pleased with how everything looks. Denies fever , chills, headache, coughing, body aches. He reports double vision for about 3 days, got new lenses over a week ago when driving but has not had anything since then. Pt reports up at 6 am but usually up at 8 am PT-OP-E Functional Tests Start: 09/01/24 07:21 Freq: Status: Active Protocol: Document 09/01/24 08:15 NM (Rec: 09/01/24 09:00 NM [id number]) Functional Tests 6 Minute Walk Test Distance 856 ft Device Used spc Comments pain in L and R knee Five Times Sit to Stand Test Score 21.72 seconds Comments 18 chair, no knee pain Timed Up and Go (TUG) Score 19.8 sec w/ spc; 20.4 sec w/o spc Comments w/ spc and w/o spc PT-OP-F Manual Assessment Start: 09/01/24 07:21 Freq: Status: Active Protocol: Document 09/01/24 08:15 NM (Rec: 09/01/24 09:00 NM [id number]) Manual Assessments Soft Tissue Assessment Soft Tissue Mobility Assessment Demos increased restrictions of B hip ER, adductors, hamstrings, quads, hip flexors Joint Mobility Assessment Joint Mobility Assessment L knee stiff, demos crepitus and catching with knee flex/ extension especially at patella PT-OP-G Mobility & Gait Start: 09/01/24 07:21 Freq: Status: Active Protocol: Document 09/01/24 08:15 NM (Rec: 09/01/24 14:25 NM [id number]) OP Gait Assessment Gait Gait Assistance Required: Standby Assistance Distance (Feet) 150 Assistive Devices Assistive Device Gait Belt,Straight Cane Gait Deviations General Gait Pattern Antalgic,Decreased Stride Length,Decreased Feet Clearance,Narrow Based Gait Factors Limiting Gait Function Factors Limiting Gait Function Decreased Activity Tolerance, Decreased Strength,Limited Range of Motion,Pain,Poor Balance Comments Gait Comments using spc in R hand but places either far out to side or very close next to foot, poor coordination of spc and feet PT-OP-H Neuro Start: 09/01/24 07:21 Freq: Status: Active Protocol: Document 09/01/24 08:15 NM (Rec: 09/01/24 09:00 NM [id number]) Sensation Evaluation Comments Summary Comments BLE equally intact to light touch sensation PT-OP-J Posture/Palpation/Skin Start: 09/01/24 07:21 Freq: Status: Active Protocol: Document 09/01/24 08:15 NM (Rec: 09/01/24 14:25 NM [id number]) Posture Evaluation Position Standing Head/C-Spine Posture Forward Head L-Spine Posture Increased Lordosis Shoulder Posture (L) Rounded,(R) Rounded Pelvis Posture Anteriorly Tilted Comments Posture Comments Increased flexion at knees BLE . Trunk slightly flexed Palpation Assessment Location L knee Palpation Details Tenderness along medial knee near pes anserine, joint line, patella, femoral condule No tenderness at patella but decreased mobility Skin Assessment Other Assessments Skin Assessment Comments Has pitting edema on BLE from hips to ankles Old healed incision along L medial knee from previous surgery PT-OP-K Range of Motion Start: 09/01/24 07:21 Freq: Status: Active Protocol: Document 09/01/24 08:15 NM (Rec: 09/01/24 09:00 NM [id number]) Knee Goniometric Range of Motion Knee Right Flexion Active (degrees) 120 Extension Active (degrees) 3 Left Flexion Active (degrees) 110 Extension Active (degrees) 10 PT-OP-M Strength Start: 09/01/24 07:21 Freq: Status: Active Protocol: Document 09/01/24 08:15 NM (Rec: 09/01/24 09:00 NM [id number]) Hip Strength Hip Manual Muscle Testing Right Flexion (L2) 3+ Fair+ Abduction 4- Good- Adduction 4- Good- Comments hip flexion painful Left Flexion (L2) 3 Fair Abduction 4- Good- Adduction 4- Good- Comments hip flexion painful Knee Strength Knee Manual Muscle Testing Right Flexion (S2) 4- Good- Extension (L3) 4- Good- Comments no pain Left Flexion (S2) 4- Good- Extension (L3) 4- Good- Comments no pain Ankle/Foot Strength Ankle and Foot Manual Muscle Testing Right Dorsiflexion (L4) 4- Good- Plantarflexion (S1) 4- Good- Left Dorsiflexion (L4) 4- Good- PT-OP-Q Treatments Start: 09/01/24 07:21 Freq: Status: Active Protocol: Document 10/18/24 14:34 NM (Rec: 10/18/24 15:35 NM [id number]) Therapeutic Exercises Supine Exercises bridge Side bilateral Reps/Minutes 15 Comments cued to limit breath-holding SLR Side bilateral Reps/Minutes 10 Comments cued quad activation quad set Side bilateral Equipment Used towel roll under thigh Reps/Minutes 15 ea mary stretch Side bilateral Reps/Minutes 60 ea Comments cued for hooklying; feels B, hamstring stretch Supine Exercise Name with knee flex/ext Side bilateral Equipment Used with strap behind knee Reps/Minutes 10 ea Comments cued form, set up; feels behind in HS Self-Care/Home Management Treatment Education Patient Education Fall Risk,Safety Caregiver Education 95/48 98%, 50 bpm, 99/53 R arm seated at rest after 5 min break 109/57 mmHg in supine, 44 bpm 115/59 mmHg after supine end of session, 45 bpm Other Education 25 minutes- Educated on blood pressure guidelines for exercise in addition to safety during exercise. Educated on monitoring blood pressure at home at various times of day, various positions. Recommended that pt inform PCP about low blood pressures, especially if he continues to feel tired and to follow up with either PCP or urgent care/ED if blood pressure continues to lower PT-OP-T Assessment and Plan Start: 09/01/24 07:21 Freq: Status: Active Protocol: Document 10/18/24 14:34 NM (Rec: 10/18/24 15:35 NM [id number]) Physical Therapy Assessment Goals Four Impairment TUG time 19.8 sec w/ spc, 20.4 w/o spc Half-Way Goal (LTG) Pt will decrease TUG time to < 18 seconds or less in order to demonstrate improved initial standing balance and gait speed for safety during community and household ambulation 09/21/24: 21 sec LTG Duration 8 weeks NOT MET Three Impairment 6 MWT 856 ft w/ spc; wants to return to family walks [employer] Super[employer] Brick Goal (LTG) Pt will improve 6MWT distance with or without AD >900 ft in order to demonstrate improved BLE strength, balance, and pain management to participate in family walks if appropriate 09/21/24: ambulated 811 ft LTG Duration 8 weeks NOT MET Two Impairment 5x STS time 21.7 seconds indicates limits in BLE strength Half-Way Goal (LTG) Pt will decrease 5x STS time to <15 seconds (age-related norm) from 18 surface in order to demonstrate increased BLE strength for gait, balance, transfers, and in preparation for upcoming knee surgery 09/21/24: continues to require increased time w/ STS due to knee pain and difficulty with hip hinge LTG Duration 8 weeks NOT MET One Impairment not performing HEP Short Term Goal (STG) Pt will report compliance at least 2x/wk with HEP in order to maximize progression with PT and transition to maintenance program in preparation for upcoming surgery STG Duration 3 weeks [employer] Brick Goal (LTG) Pt will report compliance at least 3x/wk with HEP in order to transition to maintenance program in preparation for upcoming surgery 09/21/24: performing daily LTG Duration 8 weeks MET Assessment Summary Assessment Vitals taken several times at start and during session due to pt reports of tiredness. Vitals 95/48 and 99/53 in sitting, then 109/57 in supine and 115/59 mmHg at end session following being in supine. Pt asymptomatic other than reports of fatigue. PT educated pt extensively on normal blood pressure values and safety protocol with exercise, in addition to clear education to follow up with PCP and chainstitch elastic attacher. Pt has been cleared by MD to return to PT secondary to fluid in lungs, most recent clinic notes on 10/17 indicates similar values as PT using several different cuffs. Performed supine exercises with emphasis on quad activation, glute strength. Cues needed set up even with exercises on pt HEP, cueing for neutral foot position and correct execution. Physical Therapy Plan Frequency and Duration Frequency of Treatment 2x/Week Duration of treatment (weeks) 8 Plan of Care Start Date 09/01/24 Plan of Care End Date 10/27/24 Therapeutic Interventions Therapeutic Interventions Balance Training,Gait Training ,Home Exercise Program,Joint Mobilizations,Manual Therapy, Neuromuscular Re-education, Orthotic/Prosthetic Management ,Patient/Caregiver Education, Self-Care/Home Management, Sensory Integration,Soft Tissue Mobilization,Taping, Therapeutic Activities, Therapeutic Exercises Modalities Cold Pack/Ice Massage,Hot Packs Next Visit Focus/Plan Next Note Type Progress Note Next Visit Plan check vitals to determine appopriateness for exercise. Address goals. Supine vs Continue hip and quad strengthening: seated hip abd, side steps, standing TKE HSC, hip 3 way, heel raises, toe raises. STS, progress to leg press. Balance training and spc training with indoor/ outdoor if appropriate Manual therapy to L knee
--- NOTE | 2024-10-20 15:22 | PT.OTN ---
Current Diagnoses Unilateral primary osteoarthritis, left knee (10/20/24) Stiffness of left knee, not elsewhere classified (10/20/24) Other lack of coordination (10/20/24) Weakness (10/20/24) Physical Therapy Treatment Note PT-OP-A Visit Information Start: 09/01/24 07:21 Freq: Status: Active Protocol: Document 10/20/24 14:31 NM (Rec: 10/20/24 15:22 NM [id number]) Out-Patient Physical Therapy Visit Information Visit Information Visit Type Progress Note Visit Note L arm SOS: 124/68 mmHg, 100%, 44 bpm Visit Start Time 14:33 Visit Stop Time 15:16 Visit Number 10 Evaluation Information Evaluation Date 09/01/24 Precautions Precautions 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 Reports grinding and clinking in L knee. Has not given out on him. Reports that R knee used to hurt prior to TKA, still has occasional pain but L knee is more problematic. He just had a watchman procedure in June, Dr. Duran; he is still going to cardiac rehab (cleared by Dr. Mayorga), unsure if cleared for PT. He is planning to get a L knee replacement before the end of the year, he went to ortho specialist yesterday. Pt reports that his knee has been bothering him for many years. He had a R TKA many years ago , reports has a tiny separation in the new knee joint. Presents with spc. He has stairs in his home but has has a downstairs bedroom that he has been living in. Has 3 steps at back porch to enter home (main entrance). He has swelling in B legs still. Just saw urologist, has been taking pills to reduce swelling in BLE. Swelling limits his shoes. Hx of back pain, has been treated. States that after last rehab stint, reports that he was able to lift his leg into car without assist and with less pain. Pt has had falls (3) within the last year but none since June when discharged from PT . Started using spc again after discharging from PT. PT-OP-C Subjective Start: 09/01/24 07:21 Freq: Status: Active Protocol: Document 10/20/24 14:31 NM (Rec: 10/20/24 15:22 NM [id number]) OP-PT Subjective Patient Comments Patient Comments Pt reports that he has had trouble staying upright, states unable to walk a straight julia without spc; states that it's his balance. He reports that since he woke up this morning, balance has been off. Went to bathroom in middle of the PT-OP-E Functional Tests Start: 09/01/24 07:21 Freq: Status: Active Protocol: Document 09/01/24 08:15 NM (Rec: 09/01/24 09:00 NM [id number]) Functional Tests 6 Minute Walk Test Distance 856 ft Device Used spc Comments pain in L and R knee Five Times Sit to Stand Test Score 21.72 seconds Comments 18 chair, no knee pain Timed Up and Go (TUG) Score 19.8 sec w/ spc; 20.4 sec w/o spc Comments w/ spc and w/o spc PT-OP-F Manual Assessment Start: 09/01/24 07:21 Freq: Status: Active Protocol: Document 09/01/24 08:15 NM (Rec: 09/01/24 09:00 NM [id number]) Manual Assessments Soft Tissue Assessment Soft Tissue Mobility Assessment Demos increased restrictions of B hip ER, adductors, hamstrings, quads, hip flexors Joint Mobility Assessment Joint Mobility Assessment L knee stiff, demos crepitus and catching with knee flex/ extension especially at patella PT-OP-G Mobility & Gait Start: 09/01/24 07:21 Freq: Status: Active Protocol: Document 09/01/24 08:15 NM (Rec: 09/01/24 14:25 NM [id number]) OP Gait Assessment Gait Gait Assistance Required: Standby Assistance Distance (Feet) 150 Assistive Devices Assistive Device Gait Belt,Straight Cane Gait Deviations General Gait Pattern Antalgic,Decreased Stride Length,Decreased Feet Clearance,Narrow Based Gait Factors Limiting Gait Function Factors Limiting Gait Function Decreased Activity Tolerance, Decreased Strength,Limited Range of Motion,Pain,Poor Balance Comments Gait Comments using spc in R hand but places either far out to side or very close next to foot, poor coordination of spc and feet PT-OP-H Neuro Start: 09/01/24 07:21 Freq: Status: Active Protocol: Document 09/01/24 08:15 NM (Rec: 09/01/24 09:00 NM [id number]) Sensation Evaluation Comments Summary Comments BLE equally intact to light touch sensation PT-OP-J Posture/Palpation/Skin Start: 09/01/24 07:21 Freq: Status: Active Protocol: Document 09/01/24 08:15 NM (Rec: 09/01/24 14:25 NM [id number]) Posture Evaluation Position Standing Head/C-Spine Posture Forward Head L-Spine Posture Increased Lordosis Shoulder Posture (L) Rounded,(R) Rounded Pelvis Posture Anteriorly Tilted Comments Posture Comments Increased flexion at knees BLE . Trunk slightly flexed Palpation Assessment Location L knee Palpation Details Tenderness along medial knee near pes anserine, joint line, patella, femoral condule No tenderness at patella but decreased mobility Skin Assessment Other Assessments Skin Assessment Comments Has pitting edema on BLE from hips to ankles Old healed incision along L medial knee from previous surgery PT-OP-K Range of Motion Start: 09/01/24 07:21 Freq: Status: Active Protocol: Document 10/20/24 14:31 NM (Rec: 10/20/24 15:22 NM [id number]) Knee Goniometric Range of Motion Knee Right Flexion Active (degrees) 120 Extension Active (degrees) 3 Left Flexion Active (degrees) 115 Extension Active (degrees) 5 PT-OP-M Strength Start: 09/01/24 07:21 Freq: Status: Active Protocol: Document 10/20/24 14:31 NM (Rec: 10/20/24 15:22 NM [id number]) Knee Strength Knee Manual Muscle Testing Right Flexion (S2) 4 Good Extension (L3) 4 Good Comments no pain Left Flexion (S2) 4 Good Extension (L3) 4 Good Comments no pain PT-OP-Q Treatments Start: 09/01/24 07:21 Freq: Status: Active Protocol: Document 10/20/24 14:31 NM (Rec: 10/20/24 15:22 NM [id number]) Gym Equipment Shuttle Recovery B squat Details cued TKE w/o locking knees, ball btwn legs for alignment Resistance 75# (3 navy) Reps/Time 2x15 Therapeutic Exercises Sitting Exercises STS Sitting Exercise Name 5x STS Side bilateral Reps/Minutes 13 sec Standing Exercises TKE Side bilateral Resistance level 4 band Equipment Used PT holding bands Reps/Minutes 15x3 Gait Training Gait Activity spc Device Used spc Level of Assistance CGA Distance/Duration 3 minutes Treatment Focus safety, AD coordination Comments Improved Coordinating w/ LLE and spc with turning to sit in chair, cued to turn with legs closer to chair vs attempting to back up TUG Device Used spc Level of Assistance SBA Distance/Duration 10 ft Treatment Focus community ambulation Comments 14 sec, 13 sec 6 MWT Device Used spc Level of Assistance CGA Surface stable Distance/Duration 711 ft Treatment Focus endurance and spc coordination Comments Minimal cueing needed for spc management and coordination PT-OP-T Assessment and Plan Start: 09/01/24 07:21 Freq: Status: Active Protocol: Document 10/20/24 14:31 NM (Rec: 10/20/24 15:22 NM [id number]) Physical Therapy Assessment Goals Four Impairment TUG time 19.8 sec w/ spc, 20.4 w/o spc Prison Goal (LTG) Pt will decrease TUG time to < 18 seconds or less in order to demonstrate improved initial standing balance and gait speed for safety during community and household ambulation 09/21/24: 21 sec 10/20/24: 14 sec, 13 sec w/ spc LTG Duration 8 weeks MET Three Impairment 6 MWT 856 ft w/ spc; wants to return to family walks Prison Goal (LTG) Pt will improve 6MWT distance with or without AD >900 ft in order to demonstrate improved BLE strength, balance, and pain management to participate in family walks if appropriate 09/21/24: ambulated 811 ft 10/20/24: 711 ft LTG Duration 8 weeks NOT MET Two Impairment 5x STS time 21.7 seconds indicates limits in BLE strength Prison Goal (LTG) Pt will decrease 5x STS time to <15 seconds (age-related norm) from 18 surface in order to demonstrate increased BLE strength for gait, balance, transfers, and in preparation for upcoming knee surgery 09/21/24: continues to require increased time w/ STS due to knee pain and difficulty with hip hinge 10/20/24: 12.6 sec LTG Duration 8 weeks MET One Impairment not performing HEP Short Term Goal (STG) Pt will report compliance at least 2x/wk with HEP in order to maximize progression with PT and transition to maintenance program in preparation for upcoming surgery STG Duration 3 weeks Prison Goal (LTG) Pt will report compliance at least 3x/wk with HEP in order to transition to maintenance program in preparation for upcoming surgery 09/21/24: performing daily LTG Duration 8 weeks MET Assessment Summary Assessment Pt tolerated session well. Met 5x STS goal and TUG goal. Demos improved coordination of spc with LLE today. Cueing needed for safety during turns to sit in chair as pt attempting to sit too far from chair while still backing up. Education on diffference between turning to sit in chair with spc vs FWW, pt should turn with legs nearly at chair with spc. Good feedback for leg press, able to perform without knee pain today. Physical Therapy Plan Frequency and Duration Frequency of Treatment 2x/Week Duration of treatment (weeks) 8 Plan of Care Start Date 09/01/24 Plan of Care End Date 10/27/24 Therapeutic Interventions Therapeutic Interventions Balance Training,Gait Training ,Home Exercise Program,Joint Mobilizations,Manual Therapy, Neuromuscular Re-education, Orthotic/Prosthetic Management ,Patient/Caregiver Education, Self-Care/Home Management, Sensory Integration,Soft Tissue Mobilization,Taping, Therapeutic Activities, Therapeutic Exercises Modalities Cold Pack/Ice Massage,Hot Packs Next Visit Focus/Plan Next Note Type Treatment Note Next Visit Plan check vitals to determine appopriateness for exercise. Plan to d/c in 2 sessions. 6 MWT ea session. Supine vs Continue hip and quad strengthening: seated hip abd, side steps, standing TKE HSC, hip 3 way, heel raises, toe raises. STS, progress to leg press. Balance training and spc training with indoor/ outdoor if appropriate Manual therapy to L knee
--- NOTE | 2024-10-27 15:21 | PT.OTN ---
Current Diagnoses Unilateral primary osteoarthritis, left knee (10/27/24) Stiffness of left knee, not elsewhere classified (10/27/24) Other lack of coordination (10/27/24) Weakness (10/27/24) Physical Therapy Treatment Note PT-OP-A Visit Information Start: 09/01/24 07:21 Freq: Status: Active Protocol: Document 10/27/24 14:33 NM (Rec: 10/27/24 15:21 NM [id number]) Out-Patient Physical Therapy Visit Information Visit Information Visit Type Discharge Summary Visit Start Time 14:34 Visit Stop Time 15:15 Visit Number 12 PT-OP-B Current Condition Start: 09/01/24 07:21 Freq: Status: Active Protocol: Document 09/01/24 08:15 NM (Rec: 09/01/24 09:00 NM [id number]) Current Condition History of Current Condition Onset Date chronic Current Complaints pain, weakness, decreased mobility History of Current Condition Pt presents with L knee pain. Reports grinding and clinking in L knee. Has not given out on him. Reports that R knee used to hurt prior to TKA, still has occasional pain but L knee is more problematic. He just had a watchman procedure in June, Dr. Duran; he is still going to cardiac rehab (cleared by Dr. Mayorga), unsure if cleared for PT. He is planning to get a L knee replacement before the end of the year, he went to ortho specialist yesterday. Pt reports that his knee has been bothering him for many years. He had a R TKA many years ago , reports has a tiny separation in the new knee joint. Presents with spc. He has stairs in his home but has has a downstairs bedroom that he has been living in. Has 3 steps at back porch to enter home (main entrance). He has swelling in B legs still. Just saw urologist, has been taking pills to reduce swelling in BLE. Swelling limits his shoes. Hx of back pain, has been treated. States that after last rehab stint, reports that he was able to lift his leg into car without assist and with less pain. Pt has had falls (3) within the last year but none since June when discharged from PT . Started using spc again after discharging from PT. PT-OP-C Subjective Start: 09/01/24 07:21 Freq: Status: Active Protocol: Document 10/27/24 14:33 NM (Rec: 10/27/24 15:21 NM [id number]) OP-PT Subjective Patient Comments Patient Comments Aye attending session. Pt reports same old since last time, reports knees still painful. Pt has lots of questions regarding end of plan of care today, possible surgery and how to get PT PT-OP-E Functional Tests Start: 09/01/24 07:21 Freq: Status: Active Protocol: Document 09/01/24 08:15 NM (Rec: 09/01/24 09:00 NM [id number]) Functional Tests 6 Minute Walk Test Distance 856 ft Device Used spc Comments pain in L and R knee Five Times Sit to Stand Test Score 21.72 seconds Comments 18 chair, no knee pain Timed Up and Go (TUG) Score 19.8 sec w/ spc; 20.4 sec w/o spc Comments w/ spc and w/o spc PT-OP-F Manual Assessment Start: 09/01/24 07:21 Freq: Status: Active Protocol: Document 09/01/24 08:15 NM (Rec: 09/01/24 09:00 NM [id number]) Manual Assessments Soft Tissue Assessment Soft Tissue Mobility Assessment Demos increased restrictions of B hip ER, adductors, hamstrings, quads, hip flexors Joint Mobility Assessment Joint Mobility Assessment L knee stiff, demos crepitus and catching with knee flex/ extension especially at patella PT-OP-G Mobility & Gait Start: 09/01/24 07:21 Freq: Status: Active Protocol: Document 09/01/24 08:15 NM (Rec: 09/01/24 14:25 NM [id number]) OP Gait Assessment Gait Gait Assistance Required: Standby Assistance Distance (Feet) 150 Assistive Devices Assistive Device Gait Belt,Straight Cane Gait Deviations General Gait Pattern Antalgic,Decreased Stride Length,Decreased Feet Clearance,Narrow Based Gait Factors Limiting Gait Function Factors Limiting Gait Function Decreased Activity Tolerance, Decreased Strength,Limited Range of Motion,Pain,Poor Balance Comments Gait Comments using spc in R hand but places either far out to side or very close next to foot, poor coordination of spc and feet PT-OP-H Neuro Start: 09/01/24 07:21 Freq: Status: Active Protocol: Document 09/01/24 08:15 NM (Rec: 09/01/24 09:00 NM [id number]) Sensation Evaluation Comments Summary Comments BLE equally intact to light touch sensation PT-OP-J Posture/Palpation/Skin Start: 09/01/24 07:21 Freq: Status: Active Protocol: Document 09/01/24 08:15 NM (Rec: 09/01/24 14:25 NM [id number]) Posture Evaluation Position Standing Head/C-Spine Posture Forward Head L-Spine Posture Increased Lordosis Shoulder Posture (L) Rounded,(R) Rounded Pelvis Posture Anteriorly Tilted Comments Posture Comments Increased flexion at knees BLE . Trunk slightly flexed Palpation Assessment Location L knee Palpation Details Tenderness along medial knee near pes anserine, joint line, patella, femoral condule No tenderness at patella but decreased mobility Skin Assessment Other Assessments Skin Assessment Comments Has pitting edema on BLE from hips to ankles Old healed incision along L medial knee from previous surgery PT-OP-K Range of Motion Start: 09/01/24 07:21 Freq: Status: Active Protocol: Document 10/20/24 14:31 NM (Rec: 10/20/24 15:22 NM [id number]) Knee Goniometric Range of Motion Knee Right Flexion Active (degrees) 120 Extension Active (degrees) 3 Left Flexion Active (degrees) 115 Extension Active (degrees) 5 PT-OP-M Strength Start: 09/01/24 07:21 Freq: Status: Active Protocol: Document 10/20/24 14:31 NM (Rec: 10/20/24 15:22 NM [id number]) Knee Strength Knee Manual Muscle Testing Right Flexion (S2) 4 Good Extension (L3) 4 Good Comments no pain Left Flexion (S2) 4 Good Extension (L3) 4 Good Comments no pain PT-OP-Q Treatments Start: 09/01/24 07:21 Freq: Status: Active Protocol: Document 10/27/24 14:33 NM (Rec: 10/27/24 15:21 NM [id number]) Therapeutic Exercises Supine Exercises SLR Supine Exercise Name HEP Side bilateral Reps/Minutes 10 Comments cued quad activation quad set Supine Exercise Name HEP Side bilateral Equipment Used towel roll under knee Reps/Minutes 10 Comments good quad activation mary stretch Side bilateral Reps/Minutes 60 ea Comments cued for set up Sitting Exercises STS Side bilateral Resistance level 2 band at thighs Reps/Minutes 10 LAQ Side bilateral Reps/Minutes 10 ea Comments no resistance Standing Exercises hip flexor stretch Standing Exercise Name at stairs Side bilateral Equipment Used R rail support as needed Reps/Minutes 2x30 ea resisted stepping Standing Exercise Name lateral stepping Side bilateral Resistance level 2 band at shins Equipment Used hand support on ballet bar Reps/Minutes 2x20 ft ea Comments edu to perform at counter top Self-Care/Home Management Treatment Education Caregiver Education 15 minutes- education to both pt and on how referral process works, especially post surgery. Educated on plan of care ending today, will need new referral to return. Educated on purpose of maintenance program as pt waits for possible surgery. Recommended that pt get new PT referral for surgery from surgeon once appropriate then immediately alert front desk monitor for new evaluation post-op. If pt does not have surgery, then pt can still get new PT referral but should perform maintenance program in meantime. PT and verbalize understanding PT-OP-T Assessment and Plan Start: 09/01/24 07:21 Freq: Status: Active Protocol: Document 10/27/24 14:33 NM (Rec: 10/27/24 15:21 NM [id number]) Physical Therapy Assessment Goals Four Impairment TUG time 19.8 sec w/ spc, 20.4 w/o spc Assisted Goal (LTG) Pt will decrease TUG time to < 18 seconds or less in order to demonstrate improved initial standing balance and gait speed for safety during community and household ambulation 09/21/24: 21 sec 10/20/24: 14 sec, 13 sec w/ spc LTG Duration 8 weeks MET Three Impairment 6 MWT 856 ft w/ spc; wants to return to family walks Bus Boy Goal (LTG) Pt will improve 6MWT distance with or without AD >900 ft in order to demonstrate improved BLE strength, balance, and pain management to participate in family walks if appropriate 09/21/24: ambulated 811 ft 10/20/24: 711 ft 10/24/24: ambulated 1175 ft LTG Duration 8 weeks (10/24/24 GOAL MET) Two Impairment 5x STS time 21.7 seconds indicates limits in BLE strength Bus Boy Goal (LTG) Pt will decrease 5x STS time to <15 seconds (age-related norm) from 18 surface in order to demonstrate increased BLE strength for gait, balance, transfers, and in preparation for upcoming knee surgery 09/21/24: continues to require increased time w/ STS due to knee pain and difficulty with hip hinge 10/20/24: 12.6 sec LTG Duration 8 weeks MET One Impairment not performing HEP Short Term Goal (STG) Pt will report compliance at least 2x/wk with HEP in order to maximize progression with PT and transition to maintenance program in preparation for upcoming surgery STG Duration 3 weeks Bus Boy Goal (LTG) Pt will report compliance at least 3x/wk with HEP in order to transition to maintenance program in preparation for upcoming surgery 09/21/24: performing daily LTG Duration 8 weeks MET Progress Towards Goals Progress Comments All goals met Assessment Summary Assessment Pt tolerated session well. PT provided extensive education to both pt and his during session about referral process and plan of cares, recommending that pt get post- op referral then call to set up new evaluation. Remainder of session spent on creating pt maintenance program for pt in preparation for discharge from PT today. Initiated hip flexor stretch on stairs as unable to do mary stretch due to bed softness. Pt requires cueing today for weight shift on STS, has 2 instances where did not rise on first attempt due to posterior trunk lean. Physical Therapy Plan Frequency and Duration Frequency of Treatment 2x/Week Duration of treatment (weeks) 8 Plan of Care Start Date 09/01/24 Plan of Care End Date 10/27/24 Therapeutic Interventions Therapeutic Interventions Balance Training,Gait Training ,Home Exercise Program,Joint Mobilizations,Manual Therapy, Neuromuscular Re-education, Orthotic/Prosthetic Management ,Patient/Caregiver Education, Self-Care/Home Management, Sensory Integration,Soft Tissue Mobilization,Taping, Therapeutic Activities, Therapeutic Exercises Modalities Cold Pack/Ice Massage,Hot Packs Discharge Physical Therapy Discharge Reasons Goals Met Discharge Comments All goals met. Plan expiring. Pt will not be having surgery at this time. Discharge to maintenance program Next Visit Focus/Plan Next Note Type Discharge Summary Next Visit Plan discharge from PT
== END 2024-11-03 09:34 | disposition home or self-care (01) ==
LOC: PHYS 14:30
PROVIDERS: Family Provider Internal Medicine; PCP Internal Medicine; Referring Provider Physical Medicine & Rehabilitation; Visit Provider Physical Medicine & Rehabilitation
DX: M17.12 Unilateral primary osteoarthritis, left knee (principal); M25.662 Stiffness of left knee, not elsewhere classified; R53.1 Weakness; R27.8 Other lack of coordination
CPT/HCPCS: 97110; 97116; 97140; 97161; 97535

== ENCOUNTER → 2024-10-30 10:43 | Outpatient (CLI) | payer MEDICARE, SELFPAY ==
[2024-10-30 12:33] LABS: BUN Creatinine Ratio 24.2 (6-22); Blood Urea Nitrogen 23 mg/dL (9-20); Carbon Dioxide 33 mmol/L (22-32); Chloride 102 mmol/L (98-107); Estimated Glomerular Filt Rate > 60 mL/min (>60); Glucose 112 mg/dL (80-110); HEMOLYSIS < 15 (0-50); Potassium 3.3 mmol/L (3.4-5.1); Sodium 141 mmol/L (137-145)
[2024-10-30 12:42] LABS: NT-proBNP (BNP-Adult 18+) 3970 pg/mL (<450)
== END ==
LOC: LAB 10:45
PROVIDERS: Family Provider Internal Medicine; PCP Internal Medicine; Referring Provider Internal Medicine; Visit Provider Internal Medicine
DX: I50.9 Heart failure, unspecified (principal)
CPT/HCPCS: 36415; 80048; 83880

== ENCOUNTER → 2024-11-02 12:26 | Outpatient (CLI) | payer MEDICARE, SELFPAY ==
--- NOTE | 2024-11-02 12:29 | DI.RAD.S_ITS ---
PROCEDURE: XR HIP W PEL IF DONE RT 2V INDICATIONS: Right trochanteric pain. No trauma. poss. bursitis, r/o fx TECHNIQUE: AP pelvis with lateral view(s) of the right hip(s). COMPARISON: None. FINDINGS: Bones: No fractures or dislocations. Moderate bilateral hip joint osteoarthritic changes are seen. No evidence of avascular necrosis of femoral head. Pelvic ring appears intact. No suspicious bony lesions. Soft tissues: The visualized bowel gas pattern is normal. No suspicious soft tissue calcifications. Postsurgical changes are noted in lower abdomen/pelvis from prior vascular surgery. IMPRESSION: No acute pelvic or hip fracture. Moderate bilateral hip joint osteoarthritis. No evidence of avascular necrosis. Dictated by: Cj Ivy M.D. on 11/02/2024 at 13:15 Approved by: Cj Ivy M.D. on 11/02/2024 at 13:16
== END ==
PROVIDERS: Family Provider Internal Medicine; PCP Internal Medicine; Referring Provider Physician Assistant Medical; Visit Provider Physician Assistant Medical
DX: M70.60 Trochanteric bursitis, unspecified hip (principal); M16.0 Bilateral primary osteoarthritis of hip
CPT/HCPCS: 73502

== ENCOUNTER → 2024-11-03 12:47 | Outpatient (CLI) | payer MEDICARE, SELFPAY ==
[2024-11-03 14:20] LABS: Add Manual Diff / Slide Review NO; Basophils Absolute Auto 0 /uL (0-100); Basophils Percent Auto 0.6 % (0-2); Eosinophils Absolute Auto 0 /uL (0-450); Eosinophils Percent Auto 0.4 % (2-4); Hematocrit 30.2 % (41-53); Hemoglobin 10.3 g/dL (13.5-17.5); Lymphocytes Absolute Auto 900 /uL (1100-4500); Lymphocytes Percent Auto 12.6 % (25-40); Mean Corpuscular HGB Conc 34.2 % (30-36); Mean Corpuscular Hemoglobin 31.3 PG (26-34); Mean Corpuscular Volume 91.4 fL (80-100); Monocytes Absolute Auto 600 /uL (0-900); Monocytes Percent Auto 7.7 % (3-14); Neutrophils Absolute Auto 5700 /uL (1500-7000); Neutrophils Percent Auto 78.7 % (50-75); Platelet Count 96 X10^3/uL (150-400); Red Blood Cell Count 3.31 X10^6/uL (4.5-5.9); Red Cell Distribution Width 16.8 % (11.6-14.8); White Blood Cell Count 7.2 X10^3/uL (4.5-11.0)
[2024-11-03 14:43] LABS: Alanine Aminotransferase 23 IU/L (<50); Albumin Globulin Ratio 1.6 (1.0-2.8); Alkaline Phosphatase 70 U/L (38-126); Aspartate Aminotransferase 36 IU/L (17-59); BUN Creatinine Ratio 22.5 (6-22); Bilirubin Total 2.2 mg/dL (0.2-1.3); Blood Urea Nitrogen 18 mg/dL (9-20); C-Reactive Protein Quant 0.7 mg/dL (<1.0); Calcium 9.7 mg/dL (8.4-10.2); Carbon Dioxide 30 mmol/L (22-32); Chloride 101 mmol/L (98-107); Estimated Glomerular Filt Rate > 60 mL/min (>60); Globulin 2.5 g/dL (1.7-4.1); Glucose 139 mg/dL (80-110); HEMOLYSIS < 15 (0-50); Potassium 2.8 mmol/L (3.4-5.1); Sodium 137 mmol/L (137-145); Total Protein 6.5 g/dL (6.3-8.2)
[2024-11-03 15:26] LABS: Erythrocyte Sedimentation Rate 4 MM/HR (0-15)
== END ==
PROVIDERS: Family Provider Internal Medicine; PCP Internal Medicine; Referring Provider Physician Assistant Surgical; Visit Provider Physician Assistant Surgical
DX: M25.561 Pain in right knee (principal); Z96.651 Presence of right artificial knee joint
CPT/HCPCS: 36415; 80053; 85025; 85651; 86140

== ENCOUNTER → 2024-11-14 10:11 | Outpatient (CLI) | payer MEDICARE, SELFPAY ==
[2024-11-14 11:46] LABS: Prostate Specific Antigen < 0.064 ng/mL (0.10-4.00)
== END ==
PROVIDERS: Family Provider Internal Medicine; PCP Internal Medicine; Referring Provider Urology; Visit Provider Urology
DX: C61 Malignant neoplasm of prostate (principal)
CPT/HCPCS: 36415; 84153

== ENCOUNTER 2024-11-16 11:08 | Inpatient (IN) | payer MEDICARE, SELFPAY ==
[2024-11-03 10:03] VITALS: BMI 29.4
[2024-11-15] VITALS (13 sets, daily range): BP systolic 118–181; BP diastolic 69–108; PULSE 46–71; RESP 12–18; TEMP 36.1–36.5; O2SAT 92–100; BMI 24.0
--- NOTE | 2024-11-15 06:00 | DI.RAD.S_ITS ---
PROCEDURE: XR KNEE LT 1TO2V INDICATIONS: TKA TECHNIQUE: 2 view(s) of the knee acquired. COMPARISON: [facility], , XR KNEE LT 3V, 11/19/2020, 11:33. FINDINGS: Bones: Patient is status post knee joint arthroplasty. Hardware components are in expected positions. Visualized bony structures are intact. Soft tissues: Overlying postoperative changes are noted. IMPRESSION: Expected immediate postoperative appearance, status post total left knee arthroplasty. Dictated by: Fabricio Zhang M.D. on 11/15/2024 at 13:52 Approved by: Fabricio Zhang M.D. on 11/15/2024 at 13:54
[2024-11-15] MEDS: CELECOXIB 200 MG CAPSULE 400 MG PO (09:28)
[2024-11-15] MEDS: ACETAMINOPHEN 325 MG TABLET 975 MG PO (09:28)
[2024-11-15] MEDS: FAMOTIDINE 20 MG/2 ML VIAL IV (09:29)
[2024-11-15] MEDS: LACTATED RINGERS 1,000 ML 42 ML IV (09:30)
--- NOTE | 2024-11-15 09:38 | EKG_ITS ---
[id number] [place] [address] Test Date: 2024-11-15 Pat Name: Lionel Adkins Department: Room: 205 Gender: Male Donor Services Coordinator: Isa LEONARD : 1935 Requested By: Order Number: [id number] Reading MD: Chriss Mayorga MD Measurements Intervals [place] Rate: 47 P: ND: QRS: -44 QRSD: 122 T: -34 QT: 468 QTc: 414 Interpretive Statements Poor data quality, interpretation may be adversely affected Unknown bradycardic rhythm, no P waves seen Left axis deviation Left ventricular hypertrophy with QRS widening ( R in aVL , Vesuvius product ) Inferior infarct , age undetermined Electronically Signed On 11-16-2024 6:56:14 PST by Chriss Mayorga MD
--- NOTE | 2024-11-15 09:42 | PM.PREOP ---
Pre-operative Note Interval Note History & Physical reviewed/Exam performed by Physician: Yes Changes to H&P: No
[2024-11-15 09:47] LABS: BUN Creatinine Ratio 29.9 (6-22); Blood Urea Nitrogen 23 mg/dL (9-20); Carbon Dioxide 29 mmol/L (22-32); Chloride 103 mmol/L (98-107); Estimated Glomerular Filt Rate > 60 mL/min (>60); Glucose 100 mg/dL (80-110); HEMOLYSIS 99 (0-50); Magnesium 1.6 mg/dL (1.6-2.3); Potassium 4.6 mmol/L (3.4-5.1); Sodium 139 mmol/L (137-145)
[2024-11-15] MEDS: CEFAZOLIN 2 GM/100 ML PREMIX 100 ML IV ×2 (10:16→19:50)
--- NOTE | 2024-11-15 10:35 | SUR.OPER ---
Supine on padded OR bed. Pillow under head, arms secured on padded armboards <90 degree abduction. Safety belt across torso. Non-operative leg secured with tape over blanket over lower leg. Operative leg secured in DeMayo positioner. Foam padded brace at thigh of operative leg.
[2024-11-15] MEDS: BUPIVACAINE LIPOSOME 266 MG/20 ML VIAL INJ (10:42)
[2024-11-15] MEDS: TRANEXAMIC ACID 1,000 MG VIAL 1000 MG INJ ×2 (10:45→11:48)
[2024-11-15] MEDS: BUPIVACAINE 0.25% (PF) 60 ML, EPINEPHrine 0.3 MG INJ (10:46)
--- NOTE | 2024-11-15 11:03 | SUR.PREOP ---
Block start time 0950. Monitoring initiated and maintained throughout procedure. Medications given by anesthesia provider. Patient remained stable throughout procedure, no adverse reactions noted. Block end time 0957.
--- NOTE | 2024-11-15 12:14 | PM.OP.1 ---
Operative Date/Time/Diagnoses Date of procedure: 11/15/24 Time of procedure: 10:30 Pre-op diagnosis: Left knee arthritis Post-op diagnosis: same Procedure & Clinicians Procedure: 1. Total knee arthroplasty CPT code 19532 2. Robotic assisted surgery [id number] 3. Computer navigation assisted surgery [id number] Same procedure as scheduled: Yes Indications: The patient is a 89-year-old male with end-stage [id number] left knee arthritis. The patient has varus knee arthritis. They have failed conservative treatment with activity modifications, injections, physical therapy and bracing. They has been indicated for total knee replacement. The risks and benefits of the procedure have been discussed with the patient even opportunity to ask questions. The risks of surgery include but are not limited to infection, malunion, nonunion, fracture, loosening, persistence of pain, damage to nerves and blood vessels, need for additional procedures, DVT, PE, cardiopulmonary complications and . The patient expressed a thorough understanding of the risks and benefits of surgery and has elected to proceed. Consent was signed in the office. During the operation the services of physician certified surgical technician were medically indicated and necessary to provide the exposure of the operative site for the surgical procedure and to maintain the limb in a proper position to carry out the procedure safely and efficiently. Without a qualified assistant merchandiser being present this would extend the operative procedure and would have made the procedure more technically difficult to perform. The certified surgical technician was medically necessary for the proper positioning, retraction and manipulation of the limb, proper exposure, and manipulation of the tissue for implantation implants and closure. Surgeon: Chhaya Conteh Bagel Maker: Thaddeus Ace Anesthesia Type: General, Peripheral nerve block and Local Operative Notes Findings: Varus knee arthritis full-thickness cartilage loss medial compartment trochlea and patellofemoral joint. Closure Type: primary Specimen(s): none sent Prosthetic devices, grafts, tissues, transplants, or devices: Rene and nephew journey II BCS knee Femur cobalt chromium size Tibia size 5 left Poly 9 mm insert Patella 38 x 9 round gavino Estimated Blood Loss (mL): 30 Blood products transfused: none Tourniquet time (min): 78 Procedure in detail: Patient was seen in the preoperative area where the patient and site of surgery were identified in the operative knee was marked informed consent confirmed. This was the left knee. Patient received the appropriate preoperative antibiotics this was 2 g of Ancef. And other preoperative medications and was taken to the operating room placed on operating table in the supine position. Spinal anesthetic were administered. The operative extremity was then prepped and draped in the standard sterile fashion with a nonsterile tourniquet high on the thigh. Patient was placed on the green foam bolsters. A lateral post was placed at the level of the proximal thigh /trochanter area as a lateral post. Formal time-out procedure was performed confirming the patient's side and site of surgery and administration of appropriate preoperative antibiotics and implants were in the room accounted for. All were in agreement. Patient received a preoperative dose of tranexamic acid and then a 2nd dose at tourniquet release Patient was prepped and draped in the standard sterile fashion and the foot was placed into the leg bright. This was taken into high flexion and the incision was marked out over the anterior knee to the level of the medial tubercle tubercle. The Esmarch was then used for exsanguination and the tourniquet was inflated to 250 mmHg. Was made through the skin and subcutaneous tissue in high flexion this was then brought down into 30? of flexion for the medial parapatellar arthrotomy. A marker pen was used to ken the arthrotomy site for later repair. Joint fluid was evacuated. The anterior osteophytes and soft tissues were removed. Routine medial release was initially made along the medial proximal tibia with Bovie. The patella was 1st cut using the saw sized and prepped and then subluxed throughout the case and protected. The leg was then taken into extension and the patella was everted and the patella was cut to accommodate the patellar button. This was sized to a 38 mm button for a 9 mm thickness to recreate the original dimensions of the patella. Poly was removed and the protector replaced and the patella was subluxed and the knee was taken back up into flexion and attention was returned to the femur. Then the rotational landmarks of Whitesides line and the trans epicondylar axis were marked on the femur with electrocautery. ACL and PCL were released. Then the Cori robotic pins were placed into the femur and tibia and the race set up. Landmarks were established and the robotic planning was commenced. Plan was developed and improved and adjusted as necessary to create a balanced knee. Initial alignment was 4? of varus plan for 1 degree of varus. 1 degree was placed in varus in the distal femur. 4? of external rotation of the distal femur in 3? of flexion. Knee was stressed and was balanced were then 1-2 mm medial and lateral compartments. The specifically made a tighter in the medial compartment knowing but procedure continued. Plan was satisfactory the bur was used to remove the distal femur then the 5 in 1 cutting block was applied complete the femur cuts. Attention was then turned to the tibia and the tibial resection was made in accordance with the robotic planning. The trials were placed. And the femoral notch was cut a standard fashion using Reamer then slap hammer. The knee was trialed and the checked. Knee was balanced in flexion extension. Range of motion 0-135 degrees was obtained. The rotation femoral trial was marked Bovie on the bone and checked with a long miguel. The tibia was then finished with a drill and flange cut and then The trial implants were removed. Then in extension the posterior capsule was injected with a mixture of 40 mL of 0.25% Marcaine and 20 mL of Exparel (266 mg) care to avoid excessive injection posterior laterally. The remainder of this was saved for the capsule and subcutaneous tissue and placed during cement curing. The wound and bone was irrigated with pulsatile lavage. This was then dried with a sponge. The components were verified and opened and the cement was mixed. Cement was applied to the components and then to the bone then the tibia was cemented in place 1st followed by the femur then the patella. Excess cement was removed. With care looking around the back of the knee. Remainder of the injection was injected around the capsule. trial poly was placed back in the leg was placed into extension for the patellar cementing. After this was cured approximately 15 minutes later and the dilute Betadine solution was placed for at least 3 minutes in the wound this was then irrigated out and the final poly was placed. This was a 9 mm poly. The tourniquet was released hemostasis was achieved. Final 1g of tranexamic acid was given IV at the time of tourniquet release. The capsule was closed with 1. Ethibond suture. Followed by a running Quill stitch. Subcutaneous layer was closed with 3-0 Vicryl suture. Skin was closed with a running V lock suture Stratafix Monocryl type suture and Dermabond. An pancho dressing was placed . An Eben wrap was applied. Anesthetic was terminated the patient was woken from anesthesia and taken to recovery room in good condition. There no immediate complications from this procedure. The patient will be maintained on a standard total knee replacement protocol with weight-bearing as tolerated. Complications: none Post-operative Condition: stable Disposition: PACU Plan for aftercare: Weightbear as tolerated. Immediate knee range of motion. Standard total knee postoperative protocol. Aspirin 81 mg b.i.d. x6 weeks for DVT prophylaxis. Follow up in Orthopedic Clinic in 2 weeks for wound check.
[2024-11-15] MEDS: OXYCODONE IR 5 MG TABLET PO (14:45)
--- NOTE | 2024-11-15 15:25 | PT.IIE ---
Current Diagnoses Unilateral primary osteoarthritis, left knee (11/15/24) Surgery Performed Operation Date: 11/15/24 10:30 Actual Procedures p Total Knee Arthroplasty - Robot(Left) - Chhaya Conteh MD Surgical History (Last Updated 09/27/24 @ 13:01 by Hilary Ball RN) H/O endovascular stent graft for abdominal aortic aneurysm (~06/2019) History of appendectomy History of coronary artery bypass graft x 3 (~12/2009) History of ear surgery History of knee replacement procedure of right knee History of surgical procedure (03/06/14) History of surgical procedure (10/07/15) History of surgical procedure (10/14/15) History of surgical procedure (07/30/17) Hx laparoscopic cholecystectomy Hx of bilateral cataract extraction Medical History (Last Updated 11/03/24 @ 10:27 by Shadia Alvarez RN) A-fib Abdominal aortic aneurysm (AAA) (06/24/15) Androgen deprivation therapy Arthritis Asymptomatic microscopic hematuria Benign essential HTN (09/22/11) Bilateral cataracts BPH w urinary obs/LUTS Coronary artery disease involving [place] coronary artery of [place] heart without angina pectoris (02/15/17) 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) (07/19/12) Facet arthropathy, lumbar History of COVID-19 (2023) History of endovascular stent graft for abdominal aortic aneurysm (AAA) (09/21/17) History of myocardial infarction History of TIAs HTN (hypertension) Hyperlipidemia, mixed (09/22/11) Left knee DJD Lumbar stenosis with neurogenic claudication Mild neurocognitive disorder Overactive bladder PAD (peripheral artery disease) Paroxysmal atrial fibrillation (~04/2023) Peripheral edema 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) Prostate cancer Skin cancer Spinal stenosis Spondylolisthesis at L4-L5 level Status post repair of abdominal aortic aneurysm (AAA) using straight graft (09/21/17) Urinary Incontinence Physical Therapy Inpatient Evaluation/Re-Eval M1 PT/OT-IP Prior Functional Status Start: 11/15/24 16:53 Freq: NEEDED Status: Active Protocol: Document 11/15/24 15:25 AB (Rec: 11/15/24 17:11 AB [id number]) Medical Review Prior Functional Status Medical History Reviewed Yes Communication able to make needs known; has some word finding difficulties Mobility and Gait pt stated that he was modified independent with all mobilities and ambulation using a FWW Social History Household Members spouse Living Arrangements House Number of Floors (Floors) Two Floors Number of Stairs To Enter/Railing? pt stays on main level of the house has 2 steps L rail to enter and get to main living area of the house Home Environment High Toilet,Walk in Shower, Built-In Shower Seat Home Equipment Front Wheel Walker,Hand Held Shower,Grab Bars Near Toilet, Grab Bars In Shower M2 PT-IP Current Condition Start: 11/15/24 16:53 Freq: NEEDED Status: Active Protocol: Document 11/15/24 15:25 AB (Rec: 11/15/24 17:11 AB [id number]) Physical Therapy Current Condition Current Condition Evaluation Date 11/15/24 Treatment Diagnosis s/p L TKA; difficulty in walking Onset Date 11/15/24 M3 PT-IP Subjective Start: 11/15/24 16:53 Freq: NEEDED Status: Active Protocol: Document 11/15/24 15:25 AB (Rec: 11/15/24 17:11 AB [id number]) Subjective Physical Therapy Visit Type Type Initial Evaluation Visit Start Time 15:25 Visit Stop Time 16:10 Number of HEAD HOUSEKEEPER Visits 0 Physical Therapy Visit Comments Patient Comments agreeable to do PT Therapy Pain Assessment Pain When Pain Assessed At Rest Pain Present Pain Present Pain Reported Location Left Knee Intensity 6 Scale Used Numeric (0 - 10) Pain Management Techniques Apply Cold,Modification of Treatment,Re-positioning, Timing of Activity with Medications right buttock and upper leg Intensity 8 Scale Used Numeric (0 - 10) Pain Management Techniques Distraction,Modification of Treatment,Re-positioning, Timing of Activity with Medications M4 PT-IP Mobility and Gait Start: 11/15/24 16:53 Freq: NEEDED Status: Active Protocol: Document 11/15/24 15:25 AB (Rec: 11/15/24 17:11 AB [id number]) PT-Bed Mobility Assessment Supine to Sit Supine to Sit Standby Assistance Sit to Supine Sit to Supine Standby Assistance PT-Transfer Assessment Sit to and From Stand Sit to and from Stand Minimal Assistance,Maximum Assistance,1 Person Assistance ,2 Person Assistance,Use of Upper Extremities Equipment Transfer Assistive Device Gait Belt,Front Wheeled Walker Orthotic/Prosthetic Devices or Brace: No Comments Mobility Comments pt seen in PACU. pt in bed. spouse with pt. obtained PLOF and home set up. pt with some word finding difficulties but able to answer questions. BP: 176/89. post-op folder provided and reviewed contents . educated pt on HEP. pt completed supine to sit SBA. able to sit on EOB SBA. pt without c/o dizziness but stated that he feels his brain is foggy. BP: 183/90. pt completed sit to stand min A and cues and ambulated ~ 20 ft using FWW min A. pt is impulsive. cued for safety and L quads activation. pt sat back on EOB. educated pt and spouse regarding stair climbing. caregiver training initiated. educated spouse on use of safety belt. spouse was able to put safety belt on pt. educated spouse on how to assist pt. pt attempted sit to stand from EOB but spouse was not able to assist pt by herself and PT needing to assist. pt with c/o feeling more pain and fatigue. pt sat back on the EOB. attempted again for sit to stand with just spouse assiting but pt unable to stand despite spouse assisting and PT provided max A but pt unable to stand. pt unable to do further activities. assisted pt back to bed. sit to supine SBA. positioned pt in bed. Left pt with nurse. caregiver training set up for tomorrow at 930am per spouse's request. Gait Assessment Gait Gait Assistance Required: Minimum Assistance Distance (Feet) 20 Able to Maintain Weight Bearing Status Yes During Gait Assistive Devices Assistive Device Gait Belt,Front Wheeled Walker Orthotic/Prosthetic Devices or Brace: No Gait Deviations General Gait Pattern Antalgic,Decreased Stride Length,Decreased Feet Clearance Factors Limiting Gait Function Factors Limiting Gait Function Decreased Activity Tolerance, Decreased Strength,Difficulty Following Directions,Limited Range of Motion,Pain,Poor Balance,Poor Safety Awareness PT-Balance Assessment Sitting Balance and Reactions Static Sitting Balance Ability Normal Dynamic Sitting Balance Ability Good Standing Balance and Reactions Static Standing Balance Ability Fair Dynamic Standing Balance Ability Fair Device Used FWW M5 PT-IP Objective Assessments Start: 11/15/24 16:53 Freq: NEEDED Status: Active Protocol: Document 11/15/24 15:25 AB (Rec: 11/15/24 17:11 AB [id number]) Orientation Orientation/Cognition Level of Alertness Alert Orientation Name,Situation Language Function Ability Word Finding Difficulties,Hard of Hearing Safety Awareness Decreased Safety Awareness Memory Description Short Term Impaired Gross Range of Motion Lower Extremity ROM Impairments L knee flexion: ~ 90 deg Strength Lower Extremity Strength Assessment Left Impaired Knee 4-/5 Sensation Assessment Sensation Gross Sensation WNL Muscle Tone Muscle Tone WNL Yes M6 PT-IP Treatment Start: 11/15/24 16:53 Freq: NEEDED Status: Active Protocol: Document 11/15/24 15:25 AB (Rec: 11/15/24 17:11 AB [id number]) Physical Therapy Treatment Education Education Provided Precautions,Weight Bearing Status,Post-Op Packet,Safety M7 PT-IP Assessment and Plan Start: 11/15/24 16:53 Freq: NEEDED Status: Active Protocol: Document 11/15/24 15:25 AB (Rec: 11/15/24 17:11 AB [id number]) PT Summary Assessment and Plan Potential Rehabilitation Potential Fair Status of Condition at Evaluation Evolving Summary Impairments Pain,ROM,Strength,Balance, Coordination,Sensation,Tone, Cognition,Bed Mobility, Transfers,Gait,Activity Tolerance Assessment Summary pt is an 89 y/o M s/p L TKA POD 0. pt seen in PACU and was hoping to be able to go home today. Pt initially was able to stand and ambulate using FWW only needing min A but was needing more assistance afterwards and spouse was not able to assist pt. caregiver training was initiated but further training is needed. caregiver training set up for tomorrow at 930 am . Goals Bed Mobility Goal Independent Transfer Goal Standby Assistance,Front Wheeled Walker Gait Goal Standby Assistance,Front Wheel Walker Gait Distance 200 Other Goals improve transfers and ambulation using FWW mod I ~ 250 ft up/down 2 steps L rail ascending SBA Days to Meet Goals 5 Frequency of Treatment Frequency Of Treatment Twice a Day Treatment Plan Physical Therapy Treatment Plan Bed Mobility Training,Transfer Training,Gait Training, Therapeutic Exercise,Balance Retraining,Post Op Education, Discharge Planning,Hot or Cold Pack,Neuromuscular Re-ed, Coordination Retraining,Manual Therapy Weight Bearing Status Weight Bearing Status Weight Bear as Tolerated Allowed Weight Bearing Amount (enter % LLE WBAT or #) (%) Recommendations To Nursing Amount of Assist Needed 2 Person Assist Discharge Recommendations PT Discharge Recommendations Home with 31/05 Assist Available,Home Health, Outpatient PT Transportation Needs at Discharge Private Vehicle,Wheelchair/ Cabulance
--- NOTE | 2024-11-15 17:10 | SUR.PHASEII ---
1325 Left knee CDI. Patient was unable to rate pain but declined pain medication. Family present. Call light within reach. 1630 Patient unable to void, bladder scan done by Domo Flowers. Scan showed 350mls per RN. Dr. Conteh called to notify regarding bladder and that he failed PT. VVO for straight cath. Straight cath done by Domo Flowers RN.
--- NOTE | 2024-11-15 18:21 | SUR.PHASEII ---
Pt transferred to room 205 in bed with walker, belongings and glasses on and hearing aids in.
[2024-11-15 21:00] LABS: Add Manual Diff / Slide Review NO; Basophils Absolute Auto 0 /uL (0-100); Basophils Percent Auto 0.3 % (0-2); Eosinophils Absolute Auto 0 /uL (0-450); Hematocrit 30.4 % (41-53); Hemoglobin 10.4 g/dL (13.5-17.5); Lymphocytes Absolute Auto 400 /uL (1100-4500); Lymphocytes Percent Auto 3.8 % (25-40); Mean Corpuscular Hemoglobin 30.9 PG (26-34); Mean Corpuscular Volume 90.7 fL (80-100); Monocytes Absolute Auto 300 /uL (0-900); Monocytes Percent Auto 3.1 % (3-14); Neutrophils Absolute Auto 9600 /uL (1500-7000); Neutrophils Percent Auto 92.8 % (50-75); Platelet Count 143 X10^3/uL (150-400); Red Blood Cell Count 3.36 X10^6/uL (4.5-5.9); Red Cell Distribution Width 16.5 % (11.6-14.8); White Blood Cell Count 10.4 X10^3/uL (4.5-11.0)
[2024-11-15 21:12] LABS: BUN Creatinine Ratio 29.9 (6-22); Blood Urea Nitrogen 26 mg/dL (9-20); Calcium 9.3 mg/dL (8.4-10.2); Carbon Dioxide 30 mmol/L (22-32); Chloride 99 mmol/L (98-107); Estimated Glomerular Filt Rate > 60 mL/min (>60); Glucose 165 mg/dL (80-110); HEMOLYSIS < 15 (0-50); Potassium 3.8 mmol/L (3.4-5.1); Sodium 133 mmol/L (137-145)
[2024-11-15] MEDS: DOCUSATE 100 MG CAPSULE PO (21:30)
[2024-11-15] MEDS: ASPIRIN EC 81 MG TABLET PO (21:30)
[2024-11-15] MEDS: lisinopriL 20 MG TABLET PO (21:30)
--- NOTE | 2024-11-15 23:45 | PC.NURSE ---
Patient alert but only able to state name and birthdate initially but later knew he was in the hospital and that he had surgery. PLATINUM wearing bilateral hearing aids. Breath sounds CTA with RA sat of 98%. HRR but bradycardic at 46 bpm so Carvedilol held. Denied nausea. BT hypoactive and not passing flatus as yet. Did void into toilet; unmeasured. Bladder scan done which showed only 60cc. Is able to turn himself in bed and got up to bathroom with walker and SBA and did well. Aquacel dressing covered w/jose wrap to left knee is CDI. CMS intact bilaterally and is able to lift leg well off bed. Denied pain at time of assessment. Bilateral calf SCD's applied at start of shift. Fall risk score is high and bed alarm is activated. IVF not initiated by previous shift related to BNP being elevated end of October but is taking good po fluids.
[2024-11-15] MEDS: ACETAMINOPHEN 325 MG TABLET 650 MG PO (23:55)
[2024-11-16] VITALS: BP 129/73; PULSE 51; RESP 18; TEMP 36.4; O2SAT 97
[2024-11-16] MEDS: CEFAZOLIN 2 GM/100 ML PREMIX 100 ML IV (02:52)
[2024-11-16 04:00] VITALS: BP 113/59; PULSE 45; RESP 18; TEMP 36.7; O2SAT 95
[2024-11-16] MEDS: ACETAMINOPHEN 325 MG TABLET 650 MG PO ×3 (06:00→18:01)
[2024-11-16] MEDS: IBUPROFEN 600 MG TABLET PO ×3 (06:58→21:25)
--- NOTE | 2024-11-16 07:38 | EKG_ITS ---
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
--- NOTE | 2024-11-16 07:52 | P.PN_ITS ---
Subjective Subjective Date Patient Seen: 11/16/24 Time Patient Seen: 07:52 Interval history: Upon my visit this morning, Alex was sitting up in bed and told me he 'feels awful.' When I ask him why, he refers to the Watchman procedure he had in June and tells me 'it was supposed to fix my heart but it didn't.' Per RN, at hand-off from the PACU, SUPPLY CHAIN MANAGER said pt has this sharp, left-sided chest pain all the time and his spouse confirmed this. Monitor showing 98% O2 sat and HR mid-40s to low-50s during my visit. Pt denies shortness of breath or nausea. Other than being unable to clearly elicit the circumstances regarding his Watchman device, he does not appear to be confused. I told him I would order an EKG and he said 'Yes, I think that's a good idea.' Reports he was OOB to bathroom overnight with no issues. Exam Vital Signs (past 8 hours): - 11/16/24 00:00 11/16/24 04:00 Temperature 97.5 F L 98.1 F Pulse Rate 51 L 45 L Respiratory Rate 18 18 Blood Pressure 129/73 113/59 L Pulse Oximetry 97 95 Oxygen Flow Rate 0 0 Oxygen Delivery Method Room Air Oxygen Flow Rate 0 Narrative Exam Narrative: 4/5 hip flexors, quadriceps, hamstrings; 5/5 PF, DF, EHL on left. Sensation to light touch intact throughout LLE. Calf soft and compressible. MILE over Aquacel CDI. Objective Labs 11/15/24 20:53 11/15/24 20:53 Labs: Laboratory Results - last 24 hr 11/15/24 11/15/24 11/15/24 07:35 09:15 20:53 WBC 10.4 RBC 3.36 L Hgb 10.4 L Hct 30.4 L MCV 90.7 MCH 30.9 MCHC 34.0 RDW 16.5 H Plt Count 143 L Neut % (Auto) 92.8 H Lymph % (Auto) 3.8 L [place] % (Auto) 3.1 Eos % (Auto) 0.0 L Baso % (Auto) 0.3 Neut # (Auto) 9600 H Lymph # (Auto) 400 L [place] # (Auto) 300 Eos # (Auto) 0 Baso # (Auto) 0 Sodium Cancelled 139 133 L Potassium Cancelled 4.6 3.8 Chloride Cancelled 103 99 Carbon Dioxide Cancelled 29 30 BUN Cancelled 23 H 26 H Creatinine Cancelled 0.77 0.87 Estimated GFR Cancelled > 60 > 60 BUN/Creatinine Ratio Cancelled 29.9 H 29.9 H Glucose Cancelled 100 165 H Calcium Cancelled 10.0 9.3 Magnesium 1.6 PFSH Medical History (Updated 11/16/24 @ 07:57 by Karen Olmos PA-C) A-fib PAD (peripheral artery disease) History of myocardial infarction 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) (07/19/12) History of COVID-19 (2023) Arthritis Spinal stenosis Skin cancer History of TIAs HTN (hypertension) 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) Androgen deprivation therapy Mild neurocognitive disorder Peripheral edema Paroxysmal atrial fibrillation (~04/2023) 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 Facet arthropathy, lumbar Overactive bladder Prostate cancer Asymptomatic microscopic hematuria Spondylolisthesis at L4-L5 level Lumbar stenosis with neurogenic claudication Left knee DJD Urinary Incontinence BPH w urinary obs/LUTS Benign essential HTN (09/22/11) Hyperlipidemia, mixed (09/22/11) Bilateral cataracts Status post repair of abdominal aortic aneurysm (AAA) using straight graft (09/21/17) History of endovascular stent graft for abdominal aortic aneurysm (AAA) (09/21/17) Coronary artery disease involving [place] coronary artery of [place] heart without angina pectoris (02/15/17) Abdominal aortic aneurysm (AAA) (06/24/15) Surgical History (Updated 11/16/24 @ 07:57 by Karen Olmos PA-C) History of surgical procedure (07/30/17) History of surgical procedure (10/14/15) History of surgical procedure (10/07/15) History of surgical procedure (03/06/14) Hx of bilateral cataract extraction History of ear surgery History of knee replacement procedure of right knee H/O endovascular stent graft for abdominal aortic aneurysm (~06/2019) History of appendectomy Hx laparoscopic cholecystectomy History of coronary artery bypass graft x 3 (~12/2009) Family History Sister Cancer Social History marital status: number of children: 3 household members: spouse Smoking Status: Never smoker alcohol intake: current Type(s) of exercise: other frequency: 3-4 times per week Assessment & Plan Post-op Assessment and plan (1) Total knee replacement status: Assessment and Plan narrative: Standard post-op TKA protocol: PT w/ WBAT, ASA 81mg BID for VTE prophylaxis, multimodal pain control to include icing. Disposition pending cardiac workup. (2) Chest pain: Assessment and Plan narrative: Dr Mayorga currently in the room with pt, EKG being performed. Troponins ordered, pt on telemetry. Postoperative Procedures: Procedures Operation Date: 11/15/24 10:30 Actual Procedure Side Surgeon p Total Knee Arthroplasty - Robot Left Chhaya Conteh MD Postoperative day: 1
[2024-11-16 08:00] VITALS: BP 131/64; PULSE 43; RESP 16; TEMP 36.3; O2SAT 98
[2024-11-16 08:16] LABS: Add Manual Diff / Slide Review NO; Basophils Absolute Auto 0 /uL (0-100); Basophils Percent Auto 0.3 % (0-2); Eosinophils Absolute Auto 0 /uL (0-450); Hemoglobin 9.6 g/dL (13.5-17.5); Lymphocytes Absolute Auto 800 /uL (1100-4500); Lymphocytes Percent Auto 7.3 % (25-40); Mean Corpuscular HGB Conc 34.2 % (30-36); Mean Corpuscular Hemoglobin 30.8 PG (26-34); Mean Corpuscular Volume 90.1 fL (80-100); Monocytes Absolute Auto 1200 /uL (0-900); Monocytes Percent Auto 10.6 % (3-14); Neutrophils Absolute Auto 9300 /uL (1500-7000); Neutrophils Percent Auto 81.8 % (50-75); Platelet Count 154 X10^3/uL (150-400); Red Blood Cell Count 3.11 X10^6/uL (4.5-5.9); Red Cell Distribution Width 16.3 % (11.6-14.8); White Blood Cell Count 11.4 X10^3/uL (4.5-11.0)
--- NOTE | 2024-11-16 08:17 | PM.CN ---
History of Present Illness Consult details Date Patient Seen: 11/16/24 Time Patient Seen: 08:17 Chief complaint: OPB Reason for consult: Chest pain Narrative: 89-year-old male postop day 1. Status post total knee arthroplasty who is complaining of some chest discomfort for several hours beginning prior to going to sleep overnight yesterday Patient denies any respiratory symptoms, no nausea or vomiting. No radiation of symptoms into his jaw neck arm shoulder. Just sort of a nondescript discomfort of sort in the left anterior chest that is been present for hours Patient with known coronary artery disease, status post CABG x3 2009, status post abdominal aortic aneurysm repair with endovascular graft and known peripheral vascular disease status post iliac stent. Also with known atrial fibrillation status post fairly recent Watchman procedure now off anticoagulation. Recently had his surgery delayed because of elevated BNP and possible mild congestive heart failure. Patient underwent the procedure on his knee successfully yesterday without particular complication Meds Home Medications and Allergies Home Medications Medication Instructions Recorded Confirmed Type glucosamine HCl 1,500 mg tablet 1,500 mg PO BID 11/20/21 11/03/24 History docusate sodium 100 mg capsule 100 mg PO DAILY PRN Constipation 05/03/23 11/15/24 History fluorouracil 5 % topical cream 1 applic topical BID 07/21/23 11/15/24 History cholecalciferol (vitamin D3) 50 50 mcg PO DAILY 02/28/24 11/03/24 History mcg (2,000 unit) capsule fluocinonide 0.05 % topical 1 applic topical BID 02/28/24 11/15/24 History ointment lisinopril 20 mg tablet 20 mg PO BID 03/02/24 11/15/24 History potassium chloride 8 mEq 8 meq PO DAILY #90 tabs 03/02/24 11/15/24 Rx tablet,extended release vibegron 75 mg tablet (Gemtesa) 75 mg PO DAILY #30 tabs 03/02/24 11/15/24 Rx carvedilol 3.125 mg tablet 3.125 mg PO BID #180 tabs 04/11/24 11/15/24 Rx gabapentin 300 mg capsule 300 mg PO TID PRN nerve pain #90 05/15/24 11/15/24 Rx caps alfuzosin 10 mg tablet,extended 10 mg PO DAILY #90 tabs 05/17/24 11/15/24 Rx release 24 hr tramadol 50 mg tablet 50 mg PO BID PRN pain #42 tabs 06/12/24 11/15/24 Rx atorvastatin 80 mg tablet 80 mg PO DAILY 08/16/24 11/15/24 History acetaminophen 650 mg 650 mg PO DAILY PRN Pain (Scale 09/27/24 11/15/24 History tablet,extended release Score 1-3) aspirin 81 mg capsule 81 mg PO DAILY 09/27/24 11/15/24 History chlorthalidone 25 mg tablet 25 mg PO DAILY 09/27/24 11/15/24 History omega 0-jii-lfq-fish oil 1,200 mg 2 cap PO DAILY 09/27/24 11/03/24 History (144 mg-216 mg) capsule (Fish Oil) furosemide 20 mg tablet 20 mg PO DAILY #90 tabs 10/17/24 11/15/24 Rx leuprolide (3 month) 22.5 mg (3 22.5 mg SUBCUT [id number] 11/03/24 11/03/24 History month) subcutaneous syringe (Brainjuicer) Allergies Allergy/AdvReac Type Severity Reaction Status Date / Time simvastatin [SIMVASTATIN] AdvReac Mild MUSCLE Verified 11/15/24 08:51 ACHES Review of Systems Review of Systems ROS: Yes All systems reviewed with the patient and are negative except as otherwise documented Exam Vital Signs (past 8 hours): - 11/16/24 04:00 Temperature 98.1 F Pulse Rate 45 L Respiratory Rate 18 Blood Pressure 113/59 L Pulse Oximetry 95 Oxygen Flow Rate 0 Oxygen Delivery Method Room Air Oxygen Flow Rate 0 Narrative Exam Narrative: Elderly male lying in his hospital bed in no obvious distress HEENT-unremarkable Lungs-clear with good breath sounds Heart-irregular and bradycardic no murmur Abdomen-soft nontender nondistended Extremities-no cyanosis clubbing or edema Neuro-alert and oriented x3 no obvious cranial nerve or focal defects. Patient appears to be mentating at baseline Objective ECG Impression: 12 lead ECG shows atrial fibrillation with slow ventricular response in the 40s, some nonspecific ST-T changes laterally compared to preop ECG Labs 11/16/24 08:04 11/16/24 08:04 Labs: Laboratory Results - last 24 hr 11/15/24 11/15/24 11/15/24 07:35 09:15 20:53 WBC 10.4 RBC 3.36 L Hgb 10.4 L Hct 30.4 L MCV 90.7 MCH 30.9 MCHC 34.0 RDW 16.5 H Plt Count 143 L Neut % (Auto) 92.8 H Lymph % (Auto) 3.8 L [place] % (Auto) 3.1 Eos % (Auto) 0.0 L Baso % (Auto) 0.3 Neut # (Auto) 9600 H Lymph # (Auto) 400 L [place] # (Auto) 300 Eos # (Auto) 0 Baso # (Auto) 0 Sodium Cancelled 139 133 L Potassium Cancelled 4.6 3.8 Chloride Cancelled 103 99 Carbon Dioxide Cancelled 29 30 BUN Cancelled 23 H 26 H Creatinine Cancelled 0.77 0.87 Estimated GFR Cancelled > 60 > 60 BUN/Creatinine Ratio Cancelled 29.9 H 29.9 H Glucose Cancelled 100 165 H Calcium Cancelled 10.0 9.3 Magnesium 1.6 PFSH Medical History A-fib PAD (peripheral artery disease) History of myocardial infarction 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) (07/19/12) History of COVID-19 (2023) Arthritis Spinal stenosis Skin cancer History of TIAs HTN (hypertension) 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) Androgen deprivation therapy Mild neurocognitive disorder Peripheral edema Paroxysmal atrial fibrillation (~04/2023) Current use of fci anticoagulation Facet arthropathy, lumbar Overactive bladder Prostate cancer Asymptomatic microscopic hematuria Spondylolisthesis at L4-L5 level Lumbar stenosis with neurogenic claudication Left knee DJD Urinary Incontinence BPH w urinary obs/LUTS Benign essential HTN (09/22/11) Hyperlipidemia, mixed (09/22/11) Bilateral cataracts Status post repair of abdominal aortic aneurysm (AAA) using straight graft (09/21/17) History of endovascular stent graft for abdominal aortic aneurysm (AAA) (09/21/17) Coronary artery disease involving [place] coronary artery of [place] heart without angina pectoris (02/15/17) Abdominal aortic aneurysm (AAA) (06/24/15) Surgical History History of surgical procedure (07/30/17) History of surgical procedure (10/14/15) History of surgical procedure (10/07/15) History of surgical procedure (03/06/14) Hx of bilateral cataract extraction History of ear surgery History of knee replacement procedure of right knee H/O endovascular stent graft for abdominal aortic aneurysm (~06/2019) History of appendectomy Hx laparoscopic cholecystectomy History of coronary artery bypass graft x 3 (~12/2009) Family History Sister Cancer Social History marital status: number of children: 3 household members: spouse Tobacco & Substance Use Smoking Status: Never smoker alcohol intake: current Diet and Exercise Type(s) of exercise: other frequency: 3-4 times per week Assessment & Plan Assessment & Plan narrative: 1. Chest pain-not clear this is ischemic at this point. If this is cardiac in origin I would expect his lab work to be abnormal etcetera. Still pending those results. Obviously needs to be checked for significant anemia and electrolyte disturbances etcetera If however he was showing some evidence of ischemia I think first step is to try and increase heart rate. Definitely needs to have his beta-anni therapy held. Patient has been known to be bradycardic in the 40s at baseline at times but clearly perhaps now inappropriately so. 2. Postop day 1 status post total knee arthroplasty-continued care as per Orthopedic surgery. If troponin etcetera are negative I think he was okay to be up and around, perhaps increased activity will stimulate increased heart rate which is going to be in his best interest 3. Atrial fibrillation-patient has paroxysmal atrial fibrillation clearly back in AFib with slow ventricular response at this time. Ensure electrolytes are normal, hold any AV jaden affecting agents including his low-dose carvedilol. Patient with Watchman Device no need for anticoagulation 4. Coronary artery disease-as above evaluating for possible ischemia which seems less likely to me given his presentation. Consider repeat echocardiography although recently performed after his Watchman procedure in August so only 3 or 4 months ago 5. Prostate cancer-continue patient's antiandrogen medication at this time Time-Based Coding :: [TOTAL MINUTES] spent with patient and on the chart (including review of chart, obtaining history, exam, reviewing outside data, placing orders, documenting exam and treatment plan, and counseling patient) on [DATE]. PROFEE Charge Codes Inpatient or Observation consultation: 63116
--- NOTE | 2024-11-16 08:24 | DI.RAD.S_ITS ---
PROCEDURE: XR CHEST 1V INDICATIONS: chest pain TECHNIQUE: One view of the chest was acquired. COMPARISON: [facility], CR, XR CHEST 2V, 10/02/2024, 15:33. [facility], CR, XR CHEST 2V, 06/28/2023, 16:13. FINDINGS: Surgical changes and devices: Median sternotomy wires. Partially visualized upper abdominal aortic stent. Lungs and pleura: Lungs are clear. No pleural effusions or pneumothorax. Mediastinum: Mediastinal contours appear normal. Heart size is normal. Bones and chest wall: No suspicious bony lesions. Overlying soft tissues appear unremarkable. IMPRESSION: No acute cardiopulmonary abnormality is seen. Dictated by: Jus Valverde M.D. on 11/16/2024 at 8:54 Approved by: Jus Valverde M.D. on 11/16/2024 at 9:01
[2024-11-16 08:29] LABS: BUN Creatinine Ratio 31.7 (6-22); Blood Urea Nitrogen 32 mg/dL (9-20); Calcium 9.5 mg/dL (8.4-10.2); Carbon Dioxide 30 mmol/L (22-32); Chloride 99 mmol/L (98-107); Creatine Kinase 84 U/L (55-170); Estimated Glomerular Filt Rate > 60 mL/min (>60); Glucose 120 mg/dL (80-110); HEMOLYSIS < 15 (0-50); Potassium 3.6 mmol/L (3.4-5.1); Sodium 134 mmol/L (137-145)
[2024-11-16 08:39] VITALS: BP 131/64; PULSE 51
[2024-11-16] MEDS: DOCUSATE 100 MG CAPSULE PO ×2 (08:39→21:24)
[2024-11-16] MEDS: CHOLECALCIFEROL (VITAMIN D3) 1,000 UNIT TABLET 2000 UNIT PO (08:39)
[2024-11-16] MEDS: ASPIRIN EC 81 MG TABLET PO ×2 (08:39→21:24)
[2024-11-16] MEDS: FUROSEMIDE 20 MG TABLET PO (08:39)
[2024-11-16] MEDS: POTASSIUM CHLORIDE 10 MEQ TAB PO (08:39)
[2024-11-16] MEDS: ATORVASTATIN 20 MG TABLET 80 MG PO (08:39)
[2024-11-16] MEDS: CHLORTHALIDONE 25 MG TABLET PO (08:39)
[2024-11-16] MEDS: FISH OIL 1,000 MG CAPSULE 2000 MG PO (08:39)
[2024-11-16] MEDS: lisinopriL 20 MG TABLET PO ×2 (08:39→21:26)
[2024-11-16] MEDS: SODIUM CHLORIDE 0.9% FLUSH 10 ML IV (08:41)
--- NOTE | 2024-11-16 09:30 | PT.IPTN ---
Current Diagnoses Unilateral primary osteoarthritis, left knee (11/15/24) Chest pain, unspecified (11/15/24) Presence of unspecified artificial knee joint (11/15/24) Surgery Performed Operation Date: 11/15/24 10:30 Actual Procedures p Total Knee Arthroplasty - Robot(Left) - Chhaya Conteh MD Physical Therapy Treatment Note M2 PT-IP Current Condition Start: 11/15/24 16:53 Freq: NEEDED Status: Active Protocol: Document 11/15/24 15:25 AB (Rec: 11/15/24 17:11 AB [id number]) Physical Therapy Current Condition Current Condition Evaluation Date 11/15/24 Treatment Diagnosis s/p L TKA; difficulty in walking Onset Date 11/15/24 M3 PT-IP Subjective Start: 11/15/24 16:53 Freq: NEEDED Status: Active Protocol: Document 11/16/24 09:56 TS (Rec: 11/16/24 10:01 TS [id number]) Subjective Physical Therapy Visit Type Type Treatment Note Visit Start Time 09:30 Visit Stop Time 09:53 Number of SUPERVISOR COLD ROLLING Visits 1 Physical Therapy Visit Comments Patient Comments Pt found resting in bed, he is agreeable to PT. Therapy Pain Assessment Pain When Pain Assessed During Mobility Pain Present Pain Present Pain Reported M4 PT-IP Mobility and Gait Start: 11/15/24 16:53 Freq: NEEDED Status: Active Protocol: Document 11/16/24 09:56 TS (Rec: 11/16/24 10:01 TS [id number]) PT-Bed Mobility Assessment Supine to Sit Supine to Sit Standby Assistance PT-Transfer Assessment Sit to and From Stand Sit to and from Stand Contact Guard Assistance,1 Person Assistance,Use of Upper Extremities Equipment Transfer Assistive Device Gait Belt,Front Wheeled Walker Orthotic/Prosthetic Devices or Brace: No Comments Mobility Comments Supine to sit SBA. STS with FWW CGA, spouse dons gait belt . He ambulates ~200'SBA with FWW. He performs stairs CGA with single rail x3. Pt ambulates back to the room, all needs met. Gait Assessment Gait Gait Assistance Required: Standby Assistance Distance (Feet) 200 Able to Maintain Weight Bearing Status Yes During Gait Assistive Devices Assistive Device Gait Belt,Front Wheeled Walker Orthotic/Prosthetic Devices or Brace: No Gait Deviations General Gait Pattern Antalgic,Decreased Stride Length,Decreased Feet Clearance Factors Limiting Gait Function Factors Limiting Gait Function Decreased Activity Tolerance, Decreased Strength,Difficulty Following Directions,Limited Range of Motion,Pain,Poor Balance,Poor Safety Awareness Stair Climbing Assessment Evaluation Level of Assist On Stairs Contact Guard Assistance Devices Stair Climbing Assistive Devices Left Railing Technique/Endurance Stair Climbing Direction Ascend and Descend Stair Climbing Technique Step to Step Number of Steps Climbed 3 PT-Balance Assessment Sitting Balance and Reactions Static Sitting Balance Ability Normal Dynamic Sitting Balance Ability Good Standing Balance and Reactions Static Standing Balance Ability Fair Dynamic Standing Balance Ability Fair Device Used FWW M5 PT-IP Objective Assessments Start: 11/15/24 16:53 Freq: NEEDED Status: Active Protocol: Document 11/15/24 15:25 AB (Rec: 11/15/24 17:11 AB [id number]) Orientation Orientation/Cognition Level of Alertness Alert Orientation Name,Situation Language Function Ability Word Finding Difficulties,Hard of Hearing Safety Awareness Decreased Safety Awareness Memory Description Short Term Impaired Gross Range of Motion Lower Extremity ROM Impairments L knee flexion: ~ 90 deg Strength Lower Extremity Strength Assessment Left Impaired Knee 4-/5 Sensation Assessment Sensation Gross Sensation WNL Muscle Tone Muscle Tone WNL Yes M6 PT-IP Treatment Start: 11/15/24 16:53 Freq: NEEDED Status: Active Protocol: Document 11/16/24 09:56 TS (Rec: 11/16/24 10:01 [id number]) Physical Therapy Treatment Education Education Provided Precautions,Weight Bearing Status,Post-Op Packet,Safety M7 PT-IP Assessment and Plan Start: 11/15/24 16:53 Freq: NEEDED Status: Active Protocol: Document 11/16/24 09:56 TS (Rec: 11/16/24 10:01 [id number]) PT Summary Assessment and Plan Potential Rehabilitation Potential Fair Summary Impairments Pain,ROM,Strength,Balance, Coordination,Sensation,Tone, Cognition,Bed Mobility, Transfers,Gait,Activity Tolerance Progress Towards Goals Progressing Toward Goals Assessment Summary jerod is making good progress with his mobility. HE is SBA for bed mobility. He progressed his gait to ~200' SBA with FWW. He performed stairs x3 with single rail. PSouse was instructed in and performed donning of gait belt , STS, and gait training. PT is recommending Home with assist. Goals Bed Mobility Goal Independent Transfer Goal Standby Assistance,Front Wheeled Walker Gait Goal Standby Assistance,Front Wheel Walker Gait Distance 200 Other Goals improve transfers and ambulation using FWW mod I ~ 250 ft up/down 2 steps L rail ascending SBA Days to Meet Goals 5 Treatment Plan Physical Therapy Treatment Plan Bed Mobility Training,Transfer Training,Gait Training, Therapeutic Exercise,Balance Retraining,Post Op Education, Discharge Planning,Hot or Cold Pack,Neuromuscular Re-ed, Coordination Retraining,Manual Therapy Weight Bearing Status Weight Bearing Status Weight Bear as Tolerated Allowed Weight Bearing Amount (enter % LLE WBAT or #) (%) Recommendations To Nursing Amount of Assist Needed 1 Person Assist Discharge Recommendations PT Discharge Recommendations Home with Assistance, Outpatient PT Transportation Needs at Discharge Private Vehicle
--- NOTE | 2024-11-16 11:18 | OT.IP.EVAL ---
Current Diagnoses Unilateral primary osteoarthritis, left knee (11/16/24) Chest pain, unspecified (11/16/24) Presence of unspecified artificial knee joint (11/16/24) Surgery Performed Operation Date: 11/15/24 10:30 Actual Procedures p Total Knee Arthroplasty - Robot(Left) - Chhaya Conteh MD Past Medical History (Last Reviewed 11/16/24 @ 08:19 by Chriss Mayorga MD) A-fib Abdominal aortic aneurysm (AAA) (06/24/15) Androgen deprivation therapy Arthritis Asymptomatic microscopic hematuria Benign essential HTN (09/22/11) Bilateral cataracts BPH w urinary obs/LUTS Coronary artery disease involving [place] coronary artery of [place] heart without angina pectoris (02/15/17) 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) (07/19/12) Facet arthropathy, lumbar History of COVID-19 (2023) History of endovascular stent graft for abdominal aortic aneurysm (AAA) (09/21/17) History of myocardial infarction History of TIAs HTN (hypertension) Hyperlipidemia, mixed (09/22/11) Left knee DJD Lumbar stenosis with neurogenic claudication Mild neurocognitive disorder Overactive bladder PAD (peripheral artery disease) Paroxysmal atrial fibrillation (~04/2023) Peripheral edema 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) Prostate cancer Skin cancer Spinal stenosis Spondylolisthesis at L4-L5 level Status post repair of abdominal aortic aneurysm (AAA) using straight graft (09/21/17) Urinary Incontinence Surgical History (Last Reviewed 11/16/24 @ 08:19 by Chriss Mayorga MD) H/O endovascular stent graft for abdominal aortic aneurysm (~06/2019) History of appendectomy History of coronary artery bypass graft x 3 (~12/2009) History of ear surgery History of knee replacement procedure of right knee History of surgical procedure (03/06/14) History of surgical procedure (10/07/15) History of surgical procedure (10/14/15) History of surgical procedure (07/30/17) Hx laparoscopic cholecystectomy Hx of bilateral cataract extraction Occupational Therapy Inpatient Evaluation/Re-Eval M1 PT/OT-IP Prior Functional Status Start: 11/15/24 16:53 Freq: NEEDED Status: Active Protocol: Document 11/16/24 13:07 [facility] (Rec: 11/16/24 13:26 [facility] [id number]) Medical Review Prior Functional Status Medical History Reviewed Yes Communication able to make needs known; has some word finding difficulties Mobility and Gait pt stated that he was modified independent with all mobilities and ambulation using a FWW Activities of Daily Living and IADL's Pt able to do prior. Social History Household Members spouse Living Arrangements House Number of Floors (Floors) Two Floors Number of Stairs To Enter/Railing? pt stays on main level of the house has 2 steps L rail to enter and get to main living area of the house Home Environment High Toilet,Walk in Shower, Built-In Shower Seat Home Equipment Front Wheel Walker,Hand Held Shower,Grab Bars Near Toilet, Grab Bars In Shower M2 OT-IP Current Condition Start: 11/16/24 13:07 Freq: Status: Active Protocol: Document 11/16/24 13:07 [facility] (Rec: 11/16/24 13:26 [facility] [id number]) Occupational Therapy Current Condition Current Condition Evaluation Date 11/16/24 Treatment Diagnosis S/P L TKA Diagnosis Onset Date 11/15/24 M3 OT- IP Subjective and Pain Start: 11/16/24 13:07 Freq: Status: Active Protocol: Document 11/16/24 13:07 [facility] (Rec: 11/16/24 13:26 [facility] [id number]) OT- Subjective Occupational Therapy Visit Type Type Initial Evaluation Visit Start Time 10:45 Visit Stop Time 11:18 Occupational Therapy Visit Comments Patient Comments Pt agreed to get up for OT eval. Patient/Caregiver Goals TO go home. OT Pain Assessment Pain When Pain Assessed At Rest Pain Present Pain Present Pain Reported Location left knee Intensity 2 Scale Used Numeric (0 - 10) M4 OT- IP ADL's Start: 11/16/24 13:07 Freq: Status: Active Protocol: Document 11/16/24 13:07 [facility] (Rec: 11/16/24 13:26 [facility] [id number]) OT [id number] Comments OT Self-Feeding Comments Not at meal time. OT ADL-Grooming Comments OT Grooming Comments NOt performed. OT ADL-Oral Care Comments Oral Care Comments Not performed. OT ADL-Dressing General Eval Lower Body Dressing Ability Moderate Assistance Areas Needing Assistance Socks Comments OT Dressing Comments Able to show pt use of LB dressing equipment and educated to dress the LLE first and take out last. OT ADL-Toileting Comments OT Toileting Comments Suggested best to stand to wipe and be mindful of his knee positioning during ADL needs. OT ADL-Bathing Comments OT Bathing Comments Suggested to do a dry of the built in seat or may need to get a shower chair. M5 OT- IP IADL's Start: 11/16/24 13:07 Freq: Status: Active Protocol: Document 11/16/24 13:07 [facility] (Rec: 11/16/24 13:26 [facility] [id number]) OT-Instrumental Activities of Daily Living Home Safety Awareness Home Safety Comments Pt is very groggy and not thinking well this time. Pt's family well aware pt is not at his baseline for cognitive needs. Medication Management Medication Management Comments Pt will need assist at this time. Money Management Money Management Comments Pt will need assist at this time. Meal Preparation Meal Preparation Caregiver Provides Assist Campaign Consultant Campaign Consultant Caregiver Provides Assist M6 OT- IP Functional Cognition Start: 11/16/24 13:07 Freq: Status: Active Protocol: Document 11/16/24 13:07 [facility] (Rec: 11/16/24 13:26 [facility] [id number]) Cognitive Factors Limiting Selfcare Function Cognitive Ability Level of Alertness Alert,Confusional State Patient Orientation Name Attention Span Ability Capable of Focused Attention, Capable of Sustained Attention Ability to Follow Commands Able to Follow One Step Commands with Increased Time, Able to Follow One Step Commands with Repetition Memory Description Short Term Impaired Cognitive Comments Cognitive Assessment Comments Pt needing increased time and cues to come up with that he just had knee surgery and that he is to stay overnight due to having chest pain. Educated pt's family to provide 24/7 assist as needed as pt is confused. OT- Vision and Hearing OT- Hearing Assessment OT- Hearing Assessment Hearing Impaired,Use of Hearing Aids OT- Vision Assessment Visual Acuity Glasses All The Time Visual Attentiveness WFL Occular Pursuits WFL M7 OT- IP Mobility and Balance Start: 11/16/24 13:07 Freq: Status: Active Protocol: Document 11/16/24 13:07 [facility] (Rec: 11/16/24 13:26 [facility] [id number]) OT-Transfer Assessment Sit to and From Stand Sit to and from Stand Standby Assistance Transfers Transfer Ability Standby Assistance Technique Transfer Destination Chair Devices Transfer Assistive Devices Gait Belt,Front Wheeled Walker Comments Mobility Comments SBA to stand to the FWW from the recliner for LB dressing practice. OT- Balance Assessment Sitting Balance and Reactions Static Sitting Balance Ability Normal Dynamic Sitting Balance Ability Good Standing Balance and Reactions Static Standing Balance Ability Good M8 OT- IP Objective Assessments Start: 11/16/24 13:07 Freq: Status: Active Protocol: Document 11/16/24 13:07 [facility] (Rec: 11/16/24 13:26 [facility] [id number]) OT Gross Range of Motion Upper Extremity Range of Motion Assessment Within Functional Limits OT Strength Upper Extremity Strength Assessment Within Functional Limits M9 OT- IP Assessment and Plan Start: 11/16/24 13:07 Freq: Status: Active Protocol: Document 11/16/24 13:07 [facility] (Rec: 11/16/24 13:26 [facility] [id number]) OT Summary Assessment and Plan Potential Rehabilitation Potential Excellent Analytic Complexity at Evaluation Moderate Summary OT Impairments Pain,Balance,Functional Cognition,Functional Mobility, Self-Feeding,Grooming,Dressing ,Toileting,Bathing,Toilet Transfers,Shower Transfers Progress Towards Goals Slow Progress due to Pain,Slow Progress due to Medical Issues,Slow Progress due to Cognition Assessment Summary Pt MOD complexity and main barriers are pain, not following commands and processing well at this time and at home will benefit from 24/7 assist and home health. Goals Self-Feeding Goal Independent Grooming Goal Independent Dressing Goal Independent Toileting Goal Independent Bathing Goal Standby Assistance Toilet Transfer Goal Independent Shower Transfer Goal Standby Assistance Days to Meet Goals 33 Frequency of Treatment Other frequency 5x/week Treatment Plan OT Treatment Plan ADL Training,Functional Mobility,Patient/Family Education,Discharge Planning Discharge Recommendations OT Discharge Recommendations Home with 24/7 Assist Available,Outpatient PT Home Equipment Needs shower chair, LB dressing equipment Transportation Needs at Discharge Private Vehicle
--- NOTE | 2024-11-16 12:44 | CM.DANOTE ---
Initial DCP Assessment Visit Note Reviewed EMR and team rounds for status updates. Met with pt/family at bedside to introduce self and role, pt was found to be ambulating w/walker in the room, multiple family members present. Pt lives modified independently with his in their own home in [place]. His son and will provide for his postoperative care needs. Family denies any CM assistance or resource needs at this time. Payor: Medicare Attending: Dr. Conteh Pt is a 89 year-old M post-op day 1 from a L-knee arthroplasty surgery. Pt has a hx of limited mobility and worsening L-knee pain, uses a walker at baseline. No further information was available in the EMR re: past hx. Pt did have some heart complications postoperatively with elevated troponins, and is remaining overnight for continued cardiac monitoring. Pt will d/c tomorrow am after working with therapies. Discharge Planning/Care Management Advanced directive, confirm from FAMILY Start: 11/15/24 22:20 Freq: Q24H Status: Active Protocol: Document 11/16/24 07:00 LW (Rec: 11/16/24 08:52 LW [id number]) Advance Directive, confirm on record Time 07:00 Person contacted pt Copy received No CM Discharge Assessment Start: 11/16/24 12:27 Freq: Status: Active Protocol: Document 11/16/24 12:28 DPL (Rec: 11/16/24 12:42 DPL [id number]) Discharge Planning Assessment Assigned Inventory Representative DAMARIS Leyva Advance Directives? Yes Advance Directives on File No History Provided By Patient,Family Member,Medical Record Has Patient been admitted in last 30 No days? Prior Living Arrangements House Household Members spouse Type of transporation used prior to Relies on Others admit Independent with ADL's No: Modified independent with a walker and family assist. Needs Assistance With Home Chores / Shopping Caregiver for Another No DME Already Rented / Owned Bath Bench,Elevated Toilet Seat,FWW / Walker Patient/Family Preference OP PT Therapy Barriers to Discharge No Discharge Plan Home Referrals Initiated None needed Whiteboard Updated in Patient Room with Yes name and ext. # of Inventory Representative Review Status In Process Please Provide Date Initial DC 11/16/24 Assessment Was Performed Pre-Anesthesia Assessment Start: 11/03/24 10:02 Freq: Status: Complete Protocol: Document 11/03/24 10:03 LB (Rec: 12/27/24 11:29 LB [id number]) Pre-Anesthesia Assessment PAC Comment 11/03/24 Phone assessment. Pt has incontinence. Please place a pad/brief post op. Patient Information Reviewed Via Phone Assessment Assessment Completed With Patient,Spouse Comment Aye. Diagnostic Results BMP/CMP,CBC,EKG Comment IH and outside records. Primary Care Provider Chriss Mayorga Medical Clearance Received Yes Seen Specialist in Last 12 Months Yes Specialist Seen Rvda Master Certified Rv Technician,Orthopedist, Urologist,Other Primary Language Hong Konger Preferred Language Hong Konger Railroad Detective Required No Height 177.8 cm Weight 92.986 kg Body Mass Index (BMI) 29.4 Hearing Ability Hearing Impaired,Use of Hearing Aid Visual Assist Glasses Dentition Type Teeth, Natural Present Barriers to Learning None Other Aids No Hx Anesthesia Reactions No Hx Family Anesthesia Reaction No Hx Malignant Hyperthermia No Hx Blood Transfusions No Anesthesia Review Requested No Cafe Assistant No alcohol intake current Smoking Status Never smoker Substance Use Type [#R] does not use Pain Present Pain Reported Comment Right hip down to knee. Denies left knee pain. Musculoskeletal Symptoms Abnormal Gait,Difficulty Walking,Joint Pain,Radiating Pain into Limb History of Falling (Recent or History of Yes ) Patient is completely paralyzed or No completely immobile Prosthesis or Orthotic Device Cane,Front Wheel Walker Mental Status Oriented to own ability Comment Will bring walker. Is patient on oxygen? No Does patient have FERNANDEZ/SOB Yes: Improved since 10/01. Hx Sleep Apnea No Currently Taking a Beta Jus Yes: Carvedilol 3.125 BID. Can You Climb a Flight of Stairs Without Yes SOB Hx Chest Pain Yes Hx SOB Yes Hx Syncope or Dizziness No Anti-Coagulant Therapy Yes: Aspirin 81mg daily - will check with surgeon at preop appt when to hold. Has a Rvda Master Certified Rv Technician Yes Rvda Master Certified Rv Technician name Dr Green at [facility]. Cardiac Testing Yes: Echo @ [facility] 08/21/24 Hx Pacemaker/ICD No Cardiac Clearance Received Yes Comment In surgery folder. Additional comment Clearance from Dr Perera - vascular Diet Type At Home Regular Dysphagia No Gastrointestinal Symptoms Constipation Chronic UTI No Bladder Pattern Frequency,Incontinent,Nocturia Urinary Catheter Present No Hx Urinary Self Catheterization No Diabetes No Hx Drug Resistant Organism No Presence of External or Internal Medical Yes: Vascular stents, Watchman Devices , right knee, bilat IOL. Have you had any close contact with No someone diagnosed with COVID-19? Are you experiencing any of these No symptoms symptoms? Received a COVID vaccine? Yes Received all doses? No Comment Denies covid last 2 months. Marital Status Lives With spouse Current Living Arrangements House Number of Floors (Floors) 3 or More Floors Number of Stairs To Enter/Railing? Main floor living. 2 steps to enter home. Support System Child/Children,Spouse Patient Discharge Plan Description Return Home Feels Safe in Current Environment Yes Do you have a plan to hurt yourself or No Plan others? Do You Have Any Spiritual Beliefs That No May Affect Your HC Choices? Do You Have Any Cultural Practices That No May Affect Your HC Choices? Comment [employer]. Emergency Contact Name Aye () Tulio (son), Compa (son), Collin (son) Emergency Contact Phone Number Aye:[phone] [place]: [place]:[phone] [place]:[phone] Advance Directives? No Power of Tobacco Warehouse Agent Yes Power of Tobacco Warehouse Agent Name Aye () Power of Tobacco Warehouse Agent PAC Instructions Assistance for 24 hours post- op,Durable medical equipment, Medications to take/avoid, Nasal antibiotic,No ETOH/ petroleum product on skin DOS, NPO,Post-op transportation,Pre -surgical wash,Sensory aids, Sturdy shoes/comfortable clothes,Do not bring valuables and remove jewelry
[2024-11-16] MEDS: polyethylene glycoL 3350 17 GM POWD.PACK PO (18:06)
[2024-11-16 21:26] VITALS: BP 110/60; PULSE 48
[2024-11-17] MEDS: TRAMADOL 50 MG TABLET PO ×2 (00:19→09:12)
[2024-11-17] MEDS: ACETAMINOPHEN 325 MG TABLET 650 MG PO ×3 (00:19→13:00)
[2024-11-17] MEDS: SODIUM CHLORIDE 0.9% FLUSH 10 ML IV (00:20)
--- NOTE | 2024-11-17 07:57 | P.PN_ITS ---
Subjective Subjective Date Patient Seen: 11/17/24 Time Patient Seen: 07:57 Interval history: Patient with a basically uneventful day yesterday after I saw him. Lab work ECG etcetera unremarkable. Did remain in atrial fibrillation with some bradycardia at times dipping down into a heart rate in the 30s. His carvedilol was discontinued and overall heart rate seems to be somewhat higher without it than it was with it. No additional symptoms. Patient was up and about with physical therapy without particular difficulty per notes Exam Vital Signs (past 8 hours): Oxygen Delivery Method Room Air Oxygen Flow Rate 0 Objective Labs 11/16/24 08:04 11/16/24 08:04 Labs: Laboratory Results - last 24 hr 11/16/24 08:04 WBC 11.4 H RBC 3.11 L Hgb 9.6 L Hct 28.0 L MCV 90.1 MCH 30.8 MCHC 34.2 RDW 16.3 H Plt Count 154 Neut % (Auto) 81.8 H Lymph % (Auto) 7.3 L Larue % (Auto) 10.6 Eos % (Auto) 0.0 L Baso % (Auto) 0.3 Neut # (Auto) 9300 H Lymph # (Auto) 800 L Larue # (Auto) 1200 H Eos # (Auto) 0 Baso # (Auto) 0 Sodium 134 L Potassium 3.6 Chloride 99 Carbon Dioxide 30 BUN 32 H Creatinine 1.01 Estimated GFR > 60 BUN/Creatinine Ratio 31.7 H Glucose 120 H Calcium 9.5 Total Creatine Kinase 84 Troponin I 0.020 PFSH Medical History A-fib PAD (peripheral artery disease) History of myocardial infarction 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) (07/19/12) History of COVID-19 (2023) Arthritis Spinal stenosis Skin cancer History of TIAs HTN (hypertension) 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) Androgen deprivation therapy Mild neurocognitive disorder Peripheral edema Paroxysmal atrial fibrillation (~04/2023) Current use of retirement anticoagulation Facet arthropathy, lumbar Overactive bladder Prostate cancer Asymptomatic microscopic hematuria Spondylolisthesis at L4-L5 level Lumbar stenosis with neurogenic claudication Left knee DJD Urinary Incontinence BPH w urinary obs/LUTS Benign essential HTN (09/22/11) Hyperlipidemia, mixed (09/22/11) Bilateral cataracts Status post repair of abdominal aortic aneurysm (AAA) using straight graft (09/21/17) History of endovascular stent graft for abdominal aortic aneurysm (AAA) (09/21/17) Coronary artery disease involving [place] coronary artery of [place] heart without angina pectoris (02/15/17) Abdominal aortic aneurysm (AAA) (06/24/15) Surgical History History of surgical procedure (07/30/17) History of surgical procedure (10/14/15) History of surgical procedure (10/07/15) History of surgical procedure (03/06/14) Hx of bilateral cataract extraction History of ear surgery History of knee replacement procedure of right knee H/O endovascular stent graft for abdominal aortic aneurysm (~06/2019) History of appendectomy Hx laparoscopic cholecystectomy History of coronary artery bypass graft x 3 (~12/2009) Family History Sister Cancer Social History marital status: number of children: 3 household members: spouse Smoking Status: Never smoker alcohol intake: current Type(s) of exercise: other frequency: 3-4 times per week Assessment & Plan Assessment & Plan narrative: 1. Postop day 2, status post total knee arthroplasty-continued management as per Orthopedic surgery 2. Bradycardia with atrial fibrillation-this has been seen previously. Both quality assurance monitor done by Cardiology in April of 2023 as well as 1 I had performed in January of 2024 demonstrated bradycardia with heart rate into the 30s sometimes sinus rhythm sometimes in atrial fibrillation. I think at this point keeping off any beta anni makes sense, and continued careful monitoring by both Cardiology and or myself. He appears to be asymptomatic from this but needs careful monitoring and may need this addressed in the future as an outpatient. For the moment however continue with cardiac monitoring while here in the hospital, and avoid any beta-blockers or other AV jaden blocking agents. 3. Hypertension-patient's blood pressure adequately controlled without the carvedilol. It was small dose anyway. Continue his other medications Time-Based Coding :: [TOTAL MINUTES] spent with patient and on the chart (including review of chart, obtaining history, exam, reviewing outside data, placing orders, documenting exam and treatment plan, and counseling patient) on [DATE]. PROFEE Charge codes Subsequent inpatient/observation care: [id number]
[2024-11-17 08:00] VITALS: BP 155/89; PULSE 52; RESP 16; TEMP 36.4; O2SAT 99
--- NOTE | 2024-11-17 08:51 | P.DS_ITS ---
History of Present Illness History of Present Illness Date Patient Seen: 11/17/24 Time Patient Seen: 08:51 Chief complaint: OPB Narrative: The patient is a 89-year-old male with end-stage oard-yb-cegy left knee arthritis. The patient has varus knee arthritis. They have failed conservative treatment with activity modifications, injections, physical therapy and bracing. They has been indicated for total knee replacement. The risks and benefits of the procedure have been discussed with the patient even opportunity to ask questions. The risks of surgery include but are not limited to infection, malunion, nonunion, fracture, loosening, persistence of pain, damage to nerves and blood vessels, need for additional procedures, DVT, PE, cardiopulmonary complications and . The patient expressed a thorough understanding of the risks and benefits of surgery and has elected to proceed. Consent was signed in the office. Discharge Providers Provider Date of admission: 11/16/24 11:08 Discharge Date: 11/17/24 Primary care physician: Chriss Mayorga MD Consults: 11/15/24 12:32 Consult to Physical Therapy Evaluate & Treat Comment: L tKA PT - wants to go home today Physician Instructions: Evaluate and Treat 11/15/24 18:01 Consult to Discharge Planning Routine Comment: Consult to Occupational Therapy Evaluate & Treat Comment: Physician Instructions: Evaluate and treat Consult to Physical Therapy Evaluate & Treat Comment: Physician Instructions: postop TKA protocol 11/15/24 22:17 Consult to Dietitian, Adult Routine Comment: Reason For Exam: decreased appetite, unknown weight lose in result 11/16/24 07:51 Consult to Hospitalist Service Routine Comment: Consulting Provider: Chriss Mayorga Reason for consultation: cardiac history, new left-sided chest pain Discharge provider: Thaddeus Ace PA-C Summary Hospital Course Discharge Diagnosis: Left knee arthritis Hospital Course: Procedure: 1. Total knee arthroplasty CPT code 75048 2. Robotic assisted surgery [id number] 3. Computer navigation assisted surgery [id number] Same procedure as scheduled: Yes Surgeon: Chhaya Conteh Water Reuse Program Manager: Thaddeus Ace Anesthesia Type: General, Peripheral nerve block and Local Operative Notes Findings: Varus knee arthritis full-thickness cartilage loss medial compartment trochlea and patellofemoral joint. Closure Type: primary Specimen(s): none sent Prosthetic devices, grafts, tissues, transplants, or devices: Rene and nephew journey II BCS knee Femur cobalt chromium size Tibia size 5 left Poly 9 mm insert Patella 38 x 9 round gavino Estimated Blood Loss (mL): 30 Blood products transfused: none Tourniquet time (min): 78 Patient developed onset of left anterior chest pain the morning after surgery with bradycardia. Dr. Mayorga was consulted. Cardiac workup was performed. Some evidence of ischemia, recommended holding beta-anni therapy. Status at Discharge Cognitive/behavioral status at discharge: oriented Functional status at discharge: uses cane/walker Overall status at discharge: patient is progressing back to baseline Time Spent with Patient Time spent: Less than 30 minutes Exam Vital Signs (past 8 hours): - 11/17/24 08:00 Temperature 97.5 F L Pulse Rate 52 L Respiratory Rate 16 Blood Pressure 155/89 H Pulse Oximetry 99 Oxygen Flow Rate 0 Oxygen Delivery Method Room Air Oxygen Flow Rate 0 Narrative Exam Narrative: Patient found sitting in chair eating breakfast. States he has had no shortness of breath or chest pain throughout the evening or this morning. Patient's pain is controlled with oral medication. ?Pain is localized to surgical site. ?Patient declines any new numbness or tingling at the surgical extremity. ?Patient denies dizziness, light-headedness, nausea, vomiting, fever or chills. 5/5 strength in hip flexors, quadriceps, hamstrings, DF, PF, EHL bilaterally. Sensation to light touch intact throughout BLE. Calves soft, compressible, nontender. Dressing placed intraoperatively CDI. 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) Androgen deprivation therapy Mild neurocognitive disorder Peripheral edema Paroxysmal atrial fibrillation (~04/2023) Current use of [facility] anticoagulation Facet arthropathy, lumbar Overactive bladder Prostate cancer Asymptomatic microscopic hematuria Spondylolisthesis at L4-L5 level Lumbar stenosis with neurogenic claudication Left knee DJD Urinary Incontinence BPH w urinary obs/LUTS Benign essential HTN (09/22/11) Hyperlipidemia, mixed (09/22/11) Bilateral cataracts Status post repair of abdominal aortic aneurysm (AAA) using straight graft (09/21/17) History of endovascular stent graft for abdominal aortic aneurysm (AAA) (09/21/17) Coronary artery disease involving [place] coronary artery of [place] heart without angina pectoris (02/15/17) Abdominal aortic aneurysm (AAA) (06/24/15) Surgical History History of surgical procedure (07/30/17) History of surgical procedure (10/14/15) History of surgical procedure (10/07/15) History of surgical procedure (03/06/14) Hx of bilateral cataract extraction History of ear surgery History of knee replacement procedure of right knee H/O endovascular stent graft for abdominal aortic aneurysm (~06/2019) History of appendectomy Hx laparoscopic cholecystectomy History of coronary artery bypass graft x 3 (~12/2009) Family History Sister Cancer Social History marital status: number of children: 3 household members: spouse Smoking Status: Never smoker alcohol intake: current Type(s) of exercise: other frequency: 3-4 times per week Discharge Assessment & Plan Assessment and Plan Assessment: Status post Left total knee arthroplasty Plan of Treatment: Discharge to home. ? Ambulate and weight bear as tolerated with assistive devices. ? Aspirin 81 mg twice a day for 6 weeks for DVT prevention. ? Baseline pain relief with acetaminophen 500mg every 4 hours as needed. ?Patient has been prescribed oxycodone 5 mg every 4 ?hours as needed for breakthrough pain. ? Initiate physical therapy in the next 5-10 days. ? Remove EBEN wrap once home. Keep dressing clean and dry. Keep dressing on until first office visit. If dressing becomes dirty or disrupted, replace with appropriate sized dressing. Follow up in clinic in 2 weeks for wound check. Contact clinic if there are any questions or concerns. Per Dr. Mayorga, recommend holding carvedilol along with any other beta-blockers and other AV jaden blocking agents. Recommend patient schedule an outpatient follow up appointment with Cardiology or Dr. Mayorga. Discharge Plan Discharge Plan Patient Disposition: Home Provider Discharge Comment: DC pending Medicine clearance Discharge orders & Medications Prescriptions: Continued gabapentin 300 mg capsule 300 mg PO TID PRN (Reason: nerve pain) Qty: 90 2RF alfuzosin 10 mg tablet extended release 24 hr 10 mg PO DAILY Qty: 90 3RF Rx Instructions: administer after the same meal each day tramadol 50 mg tablet 50 mg PO BID PRN (Reason: pain) Qty: 42 1RF docusate sodium 100 mg capsule 100 mg PO DAILY PRN (Reason: Constipation) potassium chloride 8 mEq tablet extended release 8 meq PO DAILY Qty: 90 3RF furosemide 20 mg tablet 20 mg PO DAILY Qty: 90 4RF chlorthalidone 25 mg Tablet 25 mg PO DAILY acetaminophen 650 mg Tablet Extended Release 650 mg PO DAILY PRN (Reason: Pain (Scale Score 1-3)) omega 6-shv-hih-fish oil [Fish Oil] 1,200 (144-216) mg Capsule 2 cap PO DAILY Eligard (3 month) 22.5 mg Syringe 22.5 mg SUBCUT [id number] lisinopril 20 mg tablet 20 mg PO BID fluocinonide 0.05 % ointment 1 applic topical BID cholecalciferol (vitamin D3) 50 mcg (2,000 unit) capsule 50 mcg PO DAILY fluorouracil 5 % cream 1 applic topical BID atorvastatin 80 mg tablet 80 mg PO DAILY glucosamine HCl 1,500 mg tablet 1,500 mg PO BID Rx Instructions: administer with a meal Gemtesa 75 mg tablet 75 mg PO DAILY Qty: 30 12RF Changed aspirin 81 mg Capsule 81 mg PO BID Qty: 90 0RF Discontinued carvedilol 3.125 mg tablet 3.125 mg PO BID Qty: 180 3RF Follow up/Referrals: Chhaya Conteh MD [Physician] - As previously scheduled Chriss Mayorga MD [Primary Care Provider] - Diet/Activity/Treatments Diet: Diet as Tolerated Activity: Ice knee, 20 to 30 minutes while awake. Motion. Weightbear as tolerated. Other treatments: Total knee replacement Dressing/Wound care: -Remove the Eben wrap 48 hours after surgery. -Keep Aquacell dressing in place until postoperative follow-up office visit. -you may see some drainage on the bandage, this is ok. If it is leaking or saturated, then the dressing can be changed to clean gauze or a clean surgical dressing from a pharmacy or reinforced with additional gauze and paper tape or dressings over the top. Otherwise, just keep dressing in place until follow up. -Okay to shower. Keep wound out of direct water stream. No soaking or submerging until all the scabs fall off (approximately 6 weeks). -Please call the office if dressing becomes significantly wet, soiled, or saturated. Activities: -Weight-bearing as tolerated. Use front wheeled walker, and progress to cane when safe. -Continue with home exercises as directed by your physical therapist. -Elevate ?toes above the nose if you have significant swelling in your lower leg. (A wedge pillow is easiest.) -Ice your incision as needed for pain/inflammation/swelling. Protect your skin with a folded pillowcase. Follow-up: -Follow-up with your surgeon or PA in the office in 10-14 days after surgery. -Follow-up with your surgeon 6 weeks postoperatively. Call the office if you have chest pain, shortness of breath, significant swelling that will not resolve with elevating, fever over 101?, significantly worsening pain. [facility]: [phone] You have been discharged with medications. These have already been sent to your pharmacy. Pain include pain medications: Oxycodone take 5 mg orally every 4 hours as needed for pain. If your pain is more severe you may take up to 2 or a maximum 3 pills (15 mg) every 4 hours for pain. Take the smallest dose necessary. Narcotic medication can make you feel constipated. You can get xcrw-euf-lfjtjfw stool softener such as docusate sodium-Colace at a pharmacy to help with this. You also have prescriptions for ibuprofen 800 mg take this 3 times a day for least the 1st 10 days after surgery to help with pain control. And acetaminophen (Tylenol) take 500-1000 mg 3 times a day for pain control. You also have a prescription for Zofran (ondansetron) this is a strong anti nausea medication that can be taken up to every 8 hours as needed for nausea Additionally will take a baby aspirin 81 mg twice a day (morning and night) to help prevent blood clots If you have been discharged with ketorolac (toradol) this is a strong anti- inflammatory, do not take ibuprofen/meloxicam/mortin or other NSAIDS while on ketorolac. Once your ketorolac prescription is finished, you may restart taking other NSAIDs again. narcotic pain medication, tylenol and aspirin are fine to continue while on ketorolac. Skin/Wound/Dressing Care Report to your healthcare provider any signs of infection, such as:: chills, fever, night sweats, unusual drainage and unusual redness Visit Report/Discharge Packet Instructions: DI for Heart Failure, DI for Knee Replacement, DI for Prescription Opioid Use Stand Alone Forms: Congestive Heart Failure, Patient Portal/API, Stroke Signs & Symptoms, Surgery Discharge Discharge Data Primary Care Provider: Chriss Mayorga
[2024-11-17] MEDS: FISH OIL 1,000 MG CAPSULE 2000 MG PO (09:12)
[2024-11-17] MEDS: IBUPROFEN 600 MG TABLET PO (09:12)
[2024-11-17] MEDS: DOCUSATE 100 MG CAPSULE PO (09:12)
[2024-11-17] MEDS: FUROSEMIDE 20 MG TABLET PO (09:13)
[2024-11-17] MEDS: ASPIRIN EC 81 MG TABLET PO (09:13)
[2024-11-17] MEDS: POTASSIUM CHLORIDE 10 MEQ TAB PO (09:13)
[2024-11-17 09:14] VITALS: BP 155/89; PULSE 52
[2024-11-17] MEDS: lisinopriL 20 MG TABLET PO (09:14)
[2024-11-17] MEDS: CHLORTHALIDONE 25 MG TABLET PO (09:14)
[2024-11-17] MEDS: ATORVASTATIN 20 MG TABLET 80 MG PO (09:15)
[2024-11-17] MEDS: CHOLECALCIFEROL (VITAMIN D3) 1,000 UNIT TABLET 2000 UNIT PO (09:16)
[2024-11-17] MEDS: polyethylene glycoL 3350 17 GM POWD.PACK PO (09:28)
--- NOTE | 2024-11-17 09:30 | PT.IPTN ---
Current Diagnoses Unilateral primary osteoarthritis, left knee (11/16/24) Chest pain, unspecified (11/16/24) Presence of unspecified artificial knee joint (11/16/24) Surgery Performed Operation Date: 11/15/24 10:30 Actual Procedures p Total Knee Arthroplasty - Robot(Left) - Chhaya Conteh MD Physical Therapy Treatment Note M2 PT-IP Current Condition Start: 11/15/24 16:53 Freq: NEEDED Status: Active Protocol: Document 11/15/24 15:25 AB (Rec: 11/15/24 17:11 AB [id number]) Physical Therapy Current Condition Current Condition Evaluation Date 11/15/24 Treatment Diagnosis s/p L TKA; difficulty in walking Onset Date 11/15/24 M3 PT-IP Subjective Start: 11/15/24 16:53 Freq: NEEDED Status: Active Protocol: Document 11/17/24 09:30 AB (Rec: 11/17/24 11:46 AB [id number]) Subjective Physical Therapy Visit Type Type Treatment Note Visit Start Time 09:30 Visit Stop Time 10:05 Number of YEAST PUMPER Visits 0 Physical Therapy Visit Comments Patient Comments agreeable to do PT Therapy Pain Assessment Pain When Pain Assessed At Rest Pain Present Pain Present Pain Reported Location left knee Intensity 5 Scale Used Numeric (0 - 10) Pain Management Techniques Distraction,Modification of Treatment,Re-positioning, Timing of Activity with Medications M4 PT-IP Mobility and Gait Start: 11/15/24 16:53 Freq: NEEDED Status: Active Protocol: Document 11/17/24 09:30 AB (Rec: 11/17/24 11:46 AB [id number]) PT-Transfer Assessment Sit to and From Stand Sit to and from Stand Standby Assistance,Contact Guard Assistance,1 Person Assistance,Use of Upper Extremities Equipment Transfer Assistive Device Gait Belt,Front Wheeled Walker Orthotic/Prosthetic Devices or Brace: No Comments Mobility Comments pt sitting on the chair. pt's son in room. pt agreed to do PT. spouse arrived. son stated that caregiver training was completed yesterday. son was able to put safety belt on pt. spouse then assisted pt with sit to stand from chair and ambulation in room ~ 30 ft CGA using fWW. pt agreed to do stairs. spouse assisted pt with ambulation towards the chair ~ 125 ft using fWW SBA to CGA. completed up/down steps holding on to L rail with B hands CGA and cues. PT initially provided cues. pt repeated stairs with spouse assisting and cueing. continue to require reminders for safety. pt son stated that he can also assist and cue. assisted pt back to his room. pt ambulated from the w/c to the chair SBA to CGA. positioned pt on the chair. call light and table placed within reach. pt and family without further concerns. O2 sat: 99-100% HR: 43-52 bpm with activities Gait Assessment Gait Gait Assistance Required: Standby Assistance,Contact Guard Assist Distance (Feet) 125 Able to Maintain Weight Bearing Status Yes During Gait Assistive Devices Assistive Device Gait Belt,Front Wheeled Walker Orthotic/Prosthetic Devices or Brace: No Gait Deviations General Gait Pattern Antalgic Factors Limiting Gait Function Factors Limiting Gait Function Decreased Activity Tolerance, Decreased Strength,Difficulty Following Directions,Limited Range of Motion,Pain,Poor Balance,Poor Safety Awareness Stair Climbing Assessment Evaluation Level of Assist On Stairs Contact Guard Assistance Devices Stair Climbing Assistive Devices Left Railing Technique/Endurance Stair Climbing Direction Ascend and Descend Stair Climbing Technique Step to Step Number of Steps Climbed 3 Stair Climbing Set # Repetitions (reps) 2 M5 PT-IP Objective Assessments Start: 11/15/24 16:53 Freq: NEEDED Status: Active Protocol: Document 11/15/24 15:25 AB (Rec: 11/15/24 17:11 AB [id number]) Orientation Orientation/Cognition Level of Alertness Alert Orientation Name,Situation Language Function Ability Word Finding Difficulties,Hard of Hearing Safety Awareness Decreased Safety Awareness Memory Description Short Term Impaired Gross Range of Motion Lower Extremity ROM Impairments L knee flexion: ~ 90 deg Strength Lower Extremity Strength Assessment Left Impaired Knee 4-/5 Sensation Assessment Sensation Gross Sensation WNL Muscle Tone Muscle Tone WNL Yes M6 PT-IP Treatment Start: 11/15/24 16:53 Freq: NEEDED Status: Active Protocol: Document 11/17/24 09:30 AB (Rec: 11/17/24 11:46 AB [id number]) Physical Therapy Treatment Education Education Provided Safety M7 PT-IP Assessment and Plan Start: 11/15/24 16:53 Freq: NEEDED Status: Active Protocol: Document 11/17/24 09:30 AB (Rec: 11/17/24 11:46 AB [id number]) PT Summary Assessment and Plan Potential Rehabilitation Potential Fair Summary Impairments Pain,ROM,Strength,Balance, Coordination,Sensation,Tone, Cognition,Bed Mobility, Transfers,Gait,Activity Tolerance Progress Towards Goals Progressing Toward Goals Assessment Summary pt requiring SBA to CGA with mobility using FWW. family able to assist pt. pt may go home when medically stable. Goals Bed Mobility Goal Independent Transfer Goal Standby Assistance,Front Wheeled Walker Gait Goal Standby Assistance,Front Wheel Walker Gait Distance 200 Other Goals improve transfers and ambulation using FWW mod I ~ 250 ft up/down 2 steps L rail ascending SBA Days to Meet Goals 5 Frequency of Treatment Frequency Of Treatment Twice a Day Treatment Plan Physical Therapy Treatment Plan Bed Mobility Training,Transfer Training,Gait Training, Therapeutic Exercise,Balance Retraining,Post Op Education, Discharge Planning,Hot or Cold Pack,Neuromuscular Re-ed, Coordination Retraining,Manual Therapy Weight Bearing Status Weight Bearing Status Weight Bear as Tolerated Allowed Weight Bearing Amount (enter % LLE WBAT or #) (%) Recommendations To Nursing Amount of Assist Needed 1 Person Assist Discharge Recommendations PT Discharge Recommendations Home with Assistance, Outpatient PT Transportation Needs at Discharge Private Vehicle
--- NOTE | 2024-11-17 10:31 | DIET.CONS ---
Dietary Consultation Note Admission Date: 11/16/2024 11:08 Assessment: 89 y M admitted L-knee arthroplasty surgery. RD consulted for decreased appetite with weight loss. Met with pt and family at bedside. Pt denies decrease/changes in appetite, stating the opposite, that appetite is very good, is eating all of meals here and outside hospital. Reflected in recorded PO intakes 75-100% UBW: Reports weight does fluctuate, but typically around 180 lb (82 kg). Weighs self daily outside hospital. Per chart, weight seems to fluctuate between 80-90 kg (-5-7% in 1-2 months). On Lasix, per PCP notes, some recent adjustments in dosing of Lasix. No nutritional interventions needed at this time. Ht: 177.8 cm Wt: 76 kg BMI: 24.0 Last BM: 11/12/24 (11/15/24 22:08) MNA: 10 Vivek Score: 21 Diet: 11/15/24 Lunch General (Regular) Diet Diet Modifications: Food Texture: Level 7 - Regular Liquid Consistency: Level 0 - Thin Nutrition Percent Meal Consumed 100% 11/17/24 07:00 Percent Meal Consumed 100% 11/16/24 17:43 Percent Meal Consumed 100% 11/16/24 12:43 Percent Meal Consumed 75% 11/16/24 08:49 Labs: RBC 3.11 X10^6/uL (4.5-5.9) L 11/16/24 08:04 Hgb 9.6 g/dL (13.5-17.5) L 11/16/24 08:04 Hct 28.0 % (41-53) L 11/16/24 08:04 Creatinine 1.01 mg/dL (0.66-1.25) 11/16/24 08:04 Electronically Signed by: Agustina Alvarez 11/17/24 10:31 Clinical Dietitian [address] [address]
--- NOTE | 2024-11-17 10:58 | OT.IP.TRT ---
Current Diagnoses Unilateral primary osteoarthritis, left knee (11/16/24) Chest pain, unspecified (11/16/24) Presence of unspecified artificial knee joint (11/16/24) Surgery Performed Operation Date: 11/15/24 10:30 Actual Procedures p Total Knee Arthroplasty - Robot(Left) - Chhaya Conteh MD Occupational Therapy Treatment Note M2 OT-IP Current Condition Start: 11/16/24 13:07 Freq: Status: Active Protocol: Document 11/16/24 13:07 [facility] (Rec: 11/16/24 13:26 [facility] [id number]) Occupational Therapy Current Condition Current Condition Evaluation Date 11/16/24 Treatment Diagnosis S/P L TKA Diagnosis Onset Date 11/15/24 M3 OT- IP Subjective and Pain Start: 11/16/24 13:07 Freq: Status: Active Protocol: Document 11/17/24 10:57 [facility] (Rec: 11/17/24 11:03 [facility] [id number]) OT- Subjective Occupational Therapy Visit Type Type Treatment Note Visit Start Time 10:50 Visit Stop Time 10:58 Occupational Therapy Visit Comments Patient Comments Pt already dressed and finalized all OT safety and equipment suggestions. Patient/Caregiver Goals To go home. OT Pain Assessment Pain When Pain Assessed At Rest Pain Present Pain Present Denied Pain M4 OT- IP ADL's Start: 11/16/24 13:07 Freq: Status: Active Protocol: Document 11/17/24 10:57 [facility] (Rec: 11/17/24 11:03 [facility] [id number]) OT ADL-Dressing Comments OT Dressing Comments Pt's son able to assist pt earlier and pt did not remember to dress the LLE first and take out last. Pt's son states was able to go over it with him this morning. OT ADL-Bathing Comments OT Bathing Comments Educated to cover the dressing and pt able to make the comment of using saran wrap. M6 OT- IP Functional Cognition Start: 11/16/24 13:07 Freq: Status: Active Protocol: Document 11/17/24 10:57 [facility] (Rec: 11/17/24 11:03 [facility] [id number]) Cognitive Factors Limiting Selfcare Function Cognitive Ability Level of Alertness Alert Patient Orientation Name,Place,Situation Attention Span Ability Capable of Focused Attention, Capable of Sustained Attention Ability to Follow Commands Able to Follow One Step Commands with Increased Time, Able to Follow One Step Commands with Repetition Memory Description Short Term Impaired Cognitive Comments Cognitive Assessment Comments Pt thinking some better today , however will continue to need 24/7 assist and supervision as pt's states pt not quite at his baseline for cognitive needs. Pt's thinking to not use Oxycodone at home unless necessary. Nursing to go over med needs at DC. M7 OT- IP Mobility and Balance Start: 11/16/24 13:07 Freq: Status: Active Protocol: Document 11/16/24 13:07 [facility] (Rec: 11/16/24 13:26 [facility] [id number]) OT-Transfer Assessment Sit to and From Stand Sit to and from Stand Standby Assistance Transfers Transfer Ability Standby Assistance Technique Transfer Destination Chair Devices Transfer Assistive Devices Gait Belt,Front Wheeled Walker Comments Mobility Comments SBA to stand to the FWW from the recliner fro LB dressing practice. OT- Balance Assessment Sitting Balance and Reactions Static Sitting Balance Ability Normal Dynamic Sitting Balance Ability Good Standing Balance and Reactions Static Standing Balance Ability Good M8 OT- IP Objective Assessments Start: 11/16/24 13:07 Freq: Status: Active Protocol: Document 11/16/24 13:07 [facility] (Rec: 11/16/24 13:26 [facility] [id number]) OT Gross Range of Motion Upper Extremity Range of Motion Assessment Within Functional Limits OT Strength Upper Extremity Strength Assessment Within Functional Limits M9 OT- IP Assessment and Plan Start: 11/16/24 13:07 Freq: Status: Active Protocol: Document 11/17/24 10:57 [facility] (Rec: 11/17/24 11:03 [facility] [id number]) OT Summary Assessment and Plan Potential Rehabilitation Potential Excellent Analytic Complexity at Evaluation Moderate Summary OT Impairments Pain,Balance,Functional Cognition,Functional Mobility, Self-Feeding,Grooming,Dressing ,Toileting,Bathing,Toilet Transfers,Shower Transfers Progress Towards Goals Progressing Toward Goals Assessment Summary Finalized ADL needs with pt and family and to home with 24 /7 assist and outpt PT. Goals Days to Meet Goals 5 Frequency of Treatment Other frequency 5x/week Treatment Plan OT Treatment Plan ADL Training,Functional Mobility,Patient/Family Education,Discharge Planning Discharge Recommendations OT Discharge Recommendations Home with 24/7 Assist Available,Outpatient PT Home Equipment Needs shower chair, LB dressing equipment Transportation Needs at Discharge Private Vehicle
--- NOTE | 2024-11-17 14:03 | PC.NURSE ---
Patient is A&OX3, VSSS, afebrile. He is cleared by Ortho and by his Medical PCP (MD Mayorga) for discharge home today with family. He and acknowledge stopping of carvedilol and schedule of all other medications, site care, activity limitations, s/sx of infection as well as follow up appointment with MD Mayorga and MD Goodwin. He is escorted at 1315 this afternoon via w/ch to private vehicle with son and for discharge home today with all of his belongings including FWW.
== END 2024-11-17 13:15 | disposition home or self-care (01) | DRG 470 ==
LOC: OR 11:54 → AC 11:54
PROVIDERS: Nurse Anesthetist, Certified Registered; Physician Assistant; Admitting Provider Orthopaedic Surgery Foot and Ankle Surgery; Family Provider Internal Medicine; PCP Internal Medicine; Referring Provider Orthopaedic Surgery Foot and Ankle Surgery; Visit Provider Orthopaedic Surgery Foot and Ankle Surgery
PROC: 0SRD0JZ Replacement of Left Knee Joint with Synthetic Substitute, Open Approach (ICD-10-PCS; CPT 27447; principal; 2024-11-15 10:30)
DX: M17.12 Unilateral primary osteoarthritis, left knee (principal); M54.16 Radiculopathy, lumbar region; R07.9 Chest pain, unspecified; R00.1 Bradycardia, unspecified; I25.10 Atherosclerotic heart disease of native coronary artery without angina pectoris; I48.0 Paroxysmal atrial fibrillation; C61 Malignant neoplasm of prostate; I10 Essential (primary) hypertension; I25.2 Old myocardial infarction; Z95.1 Presence of aortocoronary bypass graft; Z95.818 Presence of other cardiac implants and grafts; Z86.73 Personal history of transient ischemic attack (TIA), and cerebral infarction without residual deficits; Z95.828 Presence of other vascular implants and grafts
CPT/HCPCS: 36415; 71045; 73560; 80048; 82550; 83735; 84153; 84484; 85025; 93005; 93010; 97116; 97162; 97166; 97530; 97535; 99233; C1776; A9270; J0171; J0666; J0690; J1100; J1171; J2405; J2704; J3010

== ENCOUNTER 2024-11-20 10:15 | Emergency (ER) | payer MEDICARE, SELFPAY ==
[2024-11-15 22:08] VITALS: BMI 24.0
[2024-11-20 10:20] VITALS: BP 146/79; PULSE 65; RESP 18; TEMP 36.1; O2SAT 98; BMI 24.3
--- NOTE | 2024-11-20 10:37 | DI.RAD.S_ITS ---
PROCEDURE: XR ABDOMEN MIN 2V INDICATIONS: constipation. TECHNIQUE: 2 views of the abdomen were acquired. COMPARISON: [facility] [place], [place], XR LUMBAR SPINE 2 OR 3 VIEWS, 07/24/2021, 13:33. FINDINGS: Surgical changes and devices: Status post EVAR. Cholecystectomy. Bowel: No pneumoperitoneum. The bowel gas pattern is normal. Moderate stool load in the ascending colon. Soft tissues: No masses; visualized solid organ contours appear normal in size. No suspicious abdominal calcifications. Bones: No suspicious bony abnormalities. IMPRESSION: Moderate stool load in the ascending colon, without obstructive process identified. Dictated by: Tremaine Trejo M.D. on 11/20/2024 at 11:28 Approved by: Tremaine Trejo M.D. on 11/20/2024 at 11:29
[2024-11-20] MEDS: MINERAL OIL 1 EACH ENEMA PR (11:47)
--- NOTE | 2024-11-20 12:20 | ED_ITS ---
HPI - Recheck/Abnormal Lab/Rx <Uzma Ruiz PA-C - Last Filed: 11/20/24 12:47> General Chief Complaint: Recheck/Abnormal Lab/Rx Stated Complaint: no bowel movement for 10 days Time Seen by Provider: 11/20/24 11:05 History of Present Illness HPI narrative: 89-year-old male with past medical history hyperlipidemia, coronary artery disease, hypertension, AAA, prostate cancer, BPH presents to the ED with 10 days of constipation. Patient states he had a right knee replacement on 11/15/2024, is healing well, and is now mobile and able to walk with a walker. Patient states that he had a very small bowel movement yesterday, no other bowel movements in the past 10 days. Patient is passing gas. Patient denies fever, chills, nausea, vomiting, chest pain, shortness of breath, abdominal pain, dysuria, lightheadedness, dizziness, syncope. Patient is not taking any opioids other than 1 dose of oxycodone after his surgery. Related Data Home Medications Medication Instructions Recorded Confirmed glucosamine HCl 1,500 mg tablet 1,500 mg PO BID 11/20/21 11/03/24 docusate sodium 100 mg capsule 100 mg PO DAILY PRN Constipation 05/03/23 11/15/24 fluorouracil 5 % topical cream 1 applic topical BID 07/21/23 11/15/24 cholecalciferol (vitamin D3) 50 50 mcg PO DAILY 02/28/24 11/03/24 mcg (2,000 unit) capsule fluocinonide 0.05 % topical 1 applic topical BID 02/28/24 11/15/24 ointment lisinopril 20 mg tablet 20 mg PO BID 03/02/24 11/15/24 atorvastatin 80 mg tablet 80 mg PO DAILY 08/16/24 11/15/24 acetaminophen 650 mg 650 mg PO DAILY PRN Pain (Scale 09/27/24 11/15/24 tablet,extended release Score 1-3) chlorthalidone 25 mg tablet 25 mg PO DAILY 09/27/24 11/15/24 omega 6-twq-soh-fish oil 1,200 mg 2 cap PO DAILY 09/27/24 11/03/24 (144 mg-216 mg) capsule (Fish Oil) leuprolide (3 month) 22.5 mg (3 22.5 mg SUBCUT [id number] 11/03/24 11/03/24 month) subcutaneous syringe ([facility] Previous Rx's Medication Instructions Recorded potassium chloride 8 mEq 8 meq PO DAILY #90 tabs 03/02/24 tablet,extended release vibegron 75 mg tablet (Gemtesa) 75 mg PO DAILY #30 tabs 03/02/24 gabapentin 300 mg capsule 300 mg PO TID PRN nerve pain #90 05/15/24 caps alfuzosin 10 mg tablet,extended 10 mg PO DAILY #90 tabs 05/17/24 release 24 hr tramadol 50 mg tablet 50 mg PO BID PRN pain #42 tabs 06/12/24 furosemide 20 mg tablet 20 mg PO DAILY #90 tabs 10/17/24 aspirin 81 mg capsule 81 mg PO BID #90 caps 11/17/24 peg 3350-electrolytes 236 240 ml PO .qd 3 days #4,000 mL 11/20/24 gram-22.74 gram-6.74 gram-5.86 gram solution (Golytely) Allergies Allergy/AdvReac Type Severity Reaction Status Date / Time simvastatin [SIMVASTATIN] AdvReac Mild MUSCLE Verified 11/15/24 08:51 ACHES Review of Systems <Uzma Ruiz PA-C - Last Filed: 11/20/24 12:47> Constitutional Constitutional: Denies chills, Denies fatigue, Denies fever(s), Denies frequent falls, Denies lethargy and Denies weakness Eyes Eyes: Denies change in vision, Denies eye discharge, Denies irritation and Denies loss of vision ENT Ears, Nose, Mouth, and Throat: Denies change in voice, Denies dizziness, Denies neck pain, Denies sore throat and Denies throat swelling Cardiovascular Cardiovascular: Denies chest pain, Denies irregular heart rhythm, Denies lightheadedness, Denies palpitations, Denies dyspnea, Denies dyspnea on exertion and Denies orthopnea Respiratory Respiratory: Denies cough, Denies dyspnea, Denies dyspnea on exertion and Denies wheezing Gastrointestinal Gastrointestinal: Denies abdominal pain, Denies change in bowel habits, Reports constipation, Denies diarrhea, Denies nausea and Denies vomiting Musculoskeletal Musculoskeletal: Denies neck pain and Denies numbness Integumentary/Breasts Skin/Breast: Denies pruritus, Denies erythema, Denies rash and Denies wounds Neurologic Neurologic: Denies behavioral changes, Denies confusion, Denies dizziness, Denies frequent falls, Denies loss of vision, Denies numbness and Denies weakness Psychiatric Psychiatric: Denies anxiety, Denies behavioral changes, Denies confusion, Denies depression, Denies homicidal ideation and Denies suicidal ideation Endocrine Endocrine: Denies fatigue, Denies flushing and Denies palpitations Hematologic/Lymphatic Hematologic/Lymphatic: Denies easy bruising Allergic/Immunologic Allergic/Immunologic: Denies urticaria, Denies throat swelling and Denies wheezing Patient History <Uzma Ruiz PA-C - Last Filed: 11/20/24 12:47> Medical History A-fib PAD (peripheral artery disease) History of myocardial infarction 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) (07/19/12) History of COVID-19 (2023) Arthritis Spinal stenosis Skin cancer History of TIAs HTN (hypertension) 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) Androgen deprivation therapy Mild neurocognitive disorder Peripheral edema Paroxysmal atrial fibrillation (~04/2023) 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 Facet arthropathy, lumbar Overactive bladder Prostate cancer Asymptomatic microscopic hematuria Spondylolisthesis at L4-L5 level Lumbar stenosis with neurogenic claudication Left knee DJD Urinary Incontinence BPH w urinary obs/LUTS Benign essential HTN (09/22/11) Hyperlipidemia, mixed (09/22/11) Bilateral cataracts Status post repair of abdominal aortic aneurysm (AAA) using straight graft (09/21/17) History of endovascular stent graft for abdominal aortic aneurysm (AAA) (09/21/17) Coronary artery disease involving hamilton coronary artery of hamilton heart without angina pectoris (02/15/17) Abdominal aortic aneurysm (AAA) (06/24/15) Surgical History History of surgical procedure (07/30/17) History of surgical procedure (10/14/15) History of surgical procedure (10/07/15) History of surgical procedure (03/06/14) Hx of bilateral cataract extraction History of ear surgery History of knee replacement procedure of right knee H/O endovascular stent graft for abdominal aortic aneurysm (~06/2019) History of appendectomy Hx laparoscopic cholecystectomy History of coronary artery bypass graft x 3 (~12/2009) Family History Sister Cancer Social History marital status: number of children: 3 household members: spouse Smoking Status: Never smoker alcohol intake: current Type(s) of exercise: other frequency: 3-4 times per week Smoking Status: Never smoker alcohol intake frequency: holidays/special occasions only Exam <Uzma Ruiz PA-C - Last Filed: 11/20/24 12:47> Narrative Exam Narrative: Const General:?cooperative, healthy appearing and comfortable [facility] Head:?normal to inspection Ears:?hearing grossly normal bilaterally Nose:?external nose normal Face and sinus:?normal facial exam and sinuses nontender Mouth:?oral mucosae normal Throat:?posterior oropharynx normal Eyes General:?appearance normal, both eyes and all related structures Neck Neck:?normal visual inspection and no lymphadenopathy noted Resp Effort & Inspection:?normal respiratory effort Auscultation:?clear to auscultation bilaterally Cardio Rate:?regular rate Rhythm:?regular rhythm GI Abdomen is soft, nondistended, nontender to palpation. Neuro General:?patient alert, patient awake and patient oriented x3 Initial Vital Signs Initial Vital Signs: Vital Signs Temperature 97.0 F L 11/20/24 10:20 Pulse Rate 65 11/20/24 10:20 Respiratory Rate 18 11/20/24 10:20 Blood Pressure 146/79 H 11/20/24 10:20 Pulse Oximetry 98 11/20/24 10:20 Oxygen Delivery Method Room Air 11/20/24 10:20 <Brittany Costa DO - Last Filed: 11/20/24 18:56> Initial Vital Signs Initial Vital Signs: Vital Signs Temperature 97.0 F L 11/20/24 10:20 Pulse Rate 65 11/20/24 10:20 Respiratory Rate 18 11/20/24 10:20 Blood Pressure 146/79 H 11/20/24 10:20 Pulse Oximetry 98 11/20/24 10:20 Oxygen Delivery Method Room Air 11/20/24 10:20 Course <Uzma Ruiz PA-C - Last Filed: 11/20/24 12:47> Orders Ordered: ED Orders 11/20/24 10:37 XR abdomen min 2V Stat Discontinued Medications Mineral Oil (Mineral Oil 1 Each Enema) 1 each DE NOW ONE Stop: 11/20/24 11:23 Last Admin: 11/20/24 11:47 Dose: 1 each Documented By: MPO Polyethylene Glycol/Electrolytes ([id number]/Sod Sulf,Bicarb,Cl/Kcl 4,000 Ml Solution) 2,000 ml PO NOW ONE Stop: 11/20/24 12:32 Vital Signs Vital signs: Vital Signs - 8 hr 11/20/24 13:25 Pulse Rate 67 Respiratory Rate 17 Blood Pressure 135/76 Pulse Oximetry 99 Oxygen Delivery Method Room Air <Brittany Costa DO - Last Filed: 11/20/24 18:56> Orders Ordered: ED Orders 11/20/24 10:37 XR abdomen min 2V Stat Discontinued Medications Mineral Oil (Mineral Oil 1 Each Enema) 1 each DE NOW ONE Stop: 11/20/24 11:23 Last Admin: 11/20/24 11:47 Dose: 1 each Documented By: MPO Polyethylene Glycol/Electrolytes ([id number]/Sod Sulf,Bicarb,Cl/Kcl 4,000 Ml Solution) 2,000 ml PO NOW ONE Stop: 11/20/24 12:32 Vital Signs Vital signs: Vital Signs - 8 hr 11/20/24 13:25 Pulse Rate 67 Respiratory Rate 17 Blood Pressure 135/76 Pulse Oximetry 99 Oxygen Delivery Method Room Air MDM - Recheck/Abnormal Lab/Rx <Uzma Ruiz PA-C - Last Filed: 11/20/24 12:47> [facility] Narrative Medical decision making narrative: 89-year-old male with past medical history hyperlipidemia, coronary artery disease, hypertension, AAA, prostate cancer, BPH presents to the ED with 10 days of constipation. Concern for constipation versus small bowel obstruction versus other intra-abdominal pathology versus other. Obtained abdominal x-ray which shows moderate stool load in the ascending colon, without obstructive process. Benign abdomen on exam, no further imaging indicated at this time. Trial of mineral oil enema was not successful. Patient sent home with GoLYTELY. Recommend using magnesium citrate if GoLYTELY is unsuccessful. Recommend continuing MiraLax for the next 1-2 weeks. Recommend at least 1.5 L of water daily, increased fiber. Recommend follow-up with PCP as soon as possible. ED return precautions were discussed with patient. Patient verbalized understanding. Medical records reviewed: Yes Discharge Plan Departure Patient Disposition: Home Clinical Impression: Constipation Qualifiers: Constipation type: unspecified constipation type Qualified Code(s): K59.00 - Constipation, unspecified Instructions: DI for Constipation Activity Restrictions/Additional Instructions: You were evaluated in the ED today for constipation. Your abdominal x-ray was normal and shows a moderate amount of stool in the colon, but no obstruction. You are being sent home with GoLYTELY solution to help with the constipation. Please take it at home and ensure that there is a bathroom close by. If you do not have success with GoLYTELY, you may trial 300 mL of magnesium citrate which is available [id number]. Please continue taking MiraLax daily. Please consume at least 1.5 L of water daily along with increased fiber. Please follow-up with your PCP as soon as possible. Return to the ED if you have worsening symptoms. Prescriptions: New peg 3350-electrolytes [Golytely] 236-22.74-6.74 -5.86 gram recon soln 240 ml PO .qd 3 Days Qty: 4000 0RF Rx Instructions: until fecal effluent is clear No Action gabapentin 300 mg capsule 300 mg PO TID PRN (Reason: nerve pain) Qty: 90 2RF alfuzosin 10 mg tablet extended release 24 hr 10 mg PO DAILY Qty: 90 3RF Rx Instructions: administer after the same meal each day tramadol 50 mg tablet 50 mg PO BID PRN (Reason: pain) Qty: 42 1RF docusate sodium 100 mg capsule 100 mg PO DAILY PRN (Reason: Constipation) potassium chloride 8 mEq tablet extended release 8 meq PO DAILY Qty: 90 3RF furosemide 20 mg tablet 20 mg PO DAILY Qty: 90 4RF chlorthalidone 25 mg Tablet 25 mg PO DAILY acetaminophen 650 mg Tablet Extended Release 650 mg PO DAILY PRN (Reason: Pain (Scale Score 1-3)) omega 2-lbt-zxq-fish oil [Fish Oil] 1,200 (144-216) mg Capsule 2 cap PO DAILY Eligard (3 month) 22.5 mg Syringe 22.5 mg SUBCUT [id number] aspirin 81 mg Capsule 81 mg PO BID Qty: 90 0RF lisinopril 20 mg tablet 20 mg PO BID fluocinonide 0.05 % ointment 1 applic topical BID cholecalciferol (vitamin D3) 50 mcg (2,000 unit) capsule 50 mcg PO DAILY fluorouracil 5 % cream 1 applic topical BID atorvastatin 80 mg tablet 80 mg PO DAILY glucosamine HCl 1,500 mg tablet 1,500 mg PO BID Rx Instructions: administer with a meal Gemtesa 75 mg tablet 75 mg PO DAILY Qty: 30 12RF Referrals: Chriss Mayorga MD [Primary Care Provider] - Stand Alone Forms: Patient Portal/API/Survey ED Sign-out <Brittany Costa DO - Last Filed: 11/20/24 18:56> Cosign ED Attending Cosignature Attestation: I was available for consultation.
[2024-11-20 13:25] VITALS: BP 135/76; PULSE 67; RESP 17; O2SAT 99
== END 2024-11-20 13:26 | disposition home or self-care (01) ==
PROVIDERS: Emergency Provider Student in an Organized Health Care Education/Training Program; Family Provider Internal Medicine; PCP Internal Medicine
DX: K59.00 Constipation, unspecified (principal)
CPT/HCPCS: 74019; 81001; 99282; 99283

== ENCOUNTER → 2024-11-28 12:18 | Outpatient (CLI) | payer MEDICARE, SELFPAY ==
[2024-11-23 10:51] VITALS: BMI 24.0
[2024-11-28 14:27] LABS: Add Manual Diff / Slide Review NO; Basophils Absolute Auto 0 /uL (0-100); Basophils Percent Auto 0.4 % (0-2); Eosinophils Absolute Auto 0 /uL (0-450); Eosinophils Percent Auto 0.4 % (2-4); Hematocrit 30.2 % (41-53); Hemoglobin 10.2 g/dL (13.5-17.5); Lymphocytes Absolute Auto 800 /uL (1100-4500); Lymphocytes Percent Auto 7.8 % (25-40); Mean Corpuscular HGB Conc 33.9 % (30-36); Mean Corpuscular Hemoglobin 30.3 PG (26-34); Mean Corpuscular Volume 89.5 fL (80-100); Monocytes Absolute Auto 600 /uL (0-900); Monocytes Percent Auto 6.5 % (3-14); Neutrophils Absolute Auto 8300 /uL (1500-7000); Neutrophils Percent Auto 84.9 % (50-75); Platelet Count 268 X10^3/uL (150-400); Red Blood Cell Count 3.37 X10^6/uL (4.5-5.9); Red Cell Distribution Width 16.4 % (11.6-14.8); White Blood Cell Count 9.7 X10^3/uL (4.5-11.0)
== END ==
PROVIDERS: Family Provider Internal Medicine; PCP Internal Medicine; Referring Provider Internal Medicine; Visit Provider Internal Medicine
DX: I10 Essential (primary) hypertension (principal); I25.10 Atherosclerotic heart disease of native coronary artery without angina pectoris; I48.0 Paroxysmal atrial fibrillation; R60.0 Localized edema; D64.9 Anemia, unspecified
CPT/HCPCS: 36415; 85025

== ENCOUNTER → 2024-11-29 09:03 | Outpatient (CLI) | payer MEDICARE, SELFPAY ==
[2024-11-23 10:51] VITALS: BMI 24.0
[2024-11-29 10:24] LABS: Alanine Aminotransferase 19 IU/L (<50); Albumin 3.6 g/dL (3.5-5.0); Albumin Globulin Ratio 1.4 (1.0-2.8); Alkaline Phosphatase 88 U/L (38-126); Aspartate Aminotransferase 32 IU/L (17-59); BUN Creatinine Ratio 34.9 (6-22); Bilirubin Total 0.7 mg/dL (0.2-1.3); Blood Urea Nitrogen 30 mg/dL (9-20); Calcium 10.1 mg/dL (8.4-10.2); Carbon Dioxide 33 mmol/L (22-32); Chloride 98 mmol/L (98-107); Estimated Glomerular Filt Rate > 60 mL/min (>60); Globulin 2.5 g/dL (1.7-4.1); Glucose 112 mg/dL (80-110); HEMOLYSIS < 15 (0-50); Potassium 3.6 mmol/L (3.4-5.1); Sodium 137 mmol/L (137-145); Total Protein 6.1 g/dL (6.3-8.2)
== END ==
PROVIDERS: Family Provider Internal Medicine; PCP Internal Medicine; Referring Provider Internal Medicine; Visit Provider Internal Medicine
DX: I10 Essential (primary) hypertension (principal); D64.9 Anemia, unspecified
CPT/HCPCS: 36415; 80053

== ENCOUNTER 2024-12-13 04:20 | Emergency (ER) | payer MEDICARE, SELFPAY ==
[2024-11-23 10:51] VITALS: BMI 24.0
[2024-12-13] VITALS (12 sets, daily range): BP systolic 150–180; BP diastolic 74–90; PULSE 40–56; RESP 14–24; TEMP 36.1; O2SAT 95–100; BMI 23.4
--- NOTE | 2024-12-13 04:23 | DI.RAD.S_ITS ---
PROCEDURE: XR CHEST 1V INDICATIONS: chest pain TECHNIQUE: One view of the chest was acquired. COMPARISON: [facility], CR, XR CHEST 1V, 11/16/2024, 8:30. FINDINGS: Surgical changes and devices: Sternotomy wires, CABG changes and EKG leads again seen. 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 Lungs and pleura: Lungs are clear. No pleural effusions or pneumothorax. Mediastinum: Mediastinal contours appear normal. Heart size is enlarged. Bones and chest wall: No suspicious bony lesions. Overlying soft tissues appear unremarkable. IMPRESSION: No acute cardiopulmonary abnormality is seen. Unchanged cardiomegaly. Dictated by: Gilberto Culver M.D. on 12/13/2024 at 8:09 Approved by: Gilberto Culver M.D. on 12/13/2024 at 8:11
--- NOTE | 2024-12-13 04:29 | EKG_ITS ---
[facility] [address] [place] [address] Test Date: 2024-12-13 Pat Name: Lionel Adkins Department: [facility] Room: Gender: Male Neurophysiology Tech: : 1935 Requested By: Order Number: [id number] Reading MD: Measurements Intervals Willis Rate: 52 P: ME: QRS: -47 QRSD: 112 T: -27 QT: 474 QTc: 440 Interpretive Statements Junctional rhythm with occasional premature ventricular complexes Left axis deviation Inferior infarct , age undetermined Cannot rule out Anterior infarct , age undetermined
--- NOTE | 2024-12-13 04:42 | ED_ITS ---
HPI - Chest Pain <Brittany Julissa, - Last Filed: 12/17/24 21:03> General Chief Complaint: Chest Pain Stated Complaint: chest pain Time Seen by Provider: 12/13/24 04:36 Source: patient Mode of arrival: Wheelchair Limitations: no limitations History of Present Illness HPI narrative: Patient is a 89-year-old history of CABG x3 in 2009, hypertension hyperlipidemia history of atrial fibrillation with Watchman procedure (off anticoagulation) status post abdominal aortic aneurysm with repair with endovascular graft and known peripheral vascular disease with iliac stent presents today with right- sided chest discomfort. He reports that there is 1 particular area to the right of his left nipple that hurts. It has constantly been hurting since 11:00 p.m.. It has not radiating no provocation or palliation. There is no rash. It does seem reproducible with palpation. Patient is followed by Dr. Green. Patient states he has had this particular pain before and it suddenly just disappears. He denies any significant shortness of breath. He was admitted in the hospital November 16 through the for a total knee replacement. Patient says this does not feel anything like his [place]. he reports at that time he felt generally awful. Related Data Home Medications Medication Instructions Recorded Confirmed glucosamine HCl 1,500 mg tablet 1,500 mg PO BID 11/20/21 12/01/24 docusate sodium 100 mg capsule 100 mg PO DAILY PRN Constipation 05/03/23 12/01/24 fluorouracil 5 % topical cream 1 applic topical BID 07/21/23 12/01/24 cholecalciferol (vitamin D3) 50 50 mcg PO DAILY 02/28/24 12/01/24 mcg (2,000 unit) capsule fluocinonide 0.05 % topical 1 applic topical BID 02/28/24 12/01/24 ointment atorvastatin 80 mg tablet 80 mg PO DAILY 08/16/24 12/01/24 acetaminophen 650 mg 650 mg PO DAILY PRN Pain (Scale 09/27/24 12/01/24 tablet,extended release Score 1-3) omega 9-bqa-yyh-fish oil 1,200 mg 2 cap PO DAILY 09/27/24 12/01/24 (144 mg-216 mg) capsule (Fish Oil) leuprolide (3 month) 22.5 mg (3 22.5 mg SUBCUT [id number] 11/03/24 12/01/24 month) subcutaneous syringe (Eligard) Previous Rx's Medication Instructions Recorded potassium chloride 8 mEq 8 meq PO DAILY #90 tabs 03/02/24 tablet,extended release vibegron 75 mg tablet (Gemtesa) 75 mg PO DAILY #30 tabs 03/02/24 gabapentin 300 mg capsule 300 mg PO TID PRN nerve pain #90 05/15/24 caps alfuzosin 10 mg tablet,extended 10 mg PO DAILY #90 tabs 05/17/24 release 24 hr tramadol 50 mg tablet 50 mg PO BID PRN pain #42 tabs 06/12/24 furosemide 20 mg tablet 20 mg PO DAILY #90 tabs 10/17/24 aspirin 81 mg capsule 81 mg PO BID #90 caps 11/17/24 Allergies Allergy/AdvReac Type Severity Reaction Status Date / Time simvastatin [SIMVASTATIN] AdvReac Mild MUSCLE Verified 12/01/24 10:36 ACHES Patient History <Brittany Costa, - Last Filed: 12/17/24 21:03> Medical History (Updated 12/13/24 @ 08:07 by Farooq Pompa MD) Nocturia Constipation A-fib PAD (peripheral artery disease) History of myocardial infarction 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) (07/19/12) History of COVID-19 (2023) Arthritis Spinal stenosis Skin cancer History of TIAs HTN (hypertension) 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) Androgen deprivation therapy Mild neurocognitive disorder Peripheral edema Paroxysmal atrial fibrillation (~04/2023) Current use of fpc anticoagulation Facet arthropathy, lumbar Overactive bladder Prostate cancer Asymptomatic microscopic hematuria Spondylolisthesis at L4-L5 level Lumbar stenosis with neurogenic claudication Left knee DJD Urinary Incontinence BPH w urinary obs/LUTS Benign essential HTN (09/22/11) Hyperlipidemia, mixed (09/22/11) Bilateral cataracts Status post repair of abdominal aortic aneurysm (AAA) using straight graft (09/21/17) History of endovascular stent graft for abdominal aortic aneurysm (AAA) (09/21/17) Coronary artery disease involving unga coronary artery of unga heart without angina pectoris (02/15/17) Abdominal aortic aneurysm (AAA) (06/24/15) Surgical History (Updated 11/28/24 @ 11:41 by Chriss Mayorga MD) Status post left knee replacement (~11/2024) History of surgical procedure (07/30/17) History of surgical procedure (10/14/15) History of surgical procedure (10/07/15) History of surgical procedure (03/06/14) Hx of bilateral cataract extraction History of ear surgery History of knee replacement procedure of right knee H/O endovascular stent graft for abdominal aortic aneurysm (~06/2019) History of appendectomy Hx laparoscopic cholecystectomy History of coronary artery bypass graft x 3 (~12/2009) Family History Sister Cancer Social History marital status: number of children: 3 household members: spouse Smoking Status: Never smoker alcohol intake: current Type(s) of exercise: other frequency: 3-4 times per week Smoking Status: Never smoker alcohol intake frequency: holidays/special occasions only Exam <Brittany Costa DO - Last Filed: 12/17/24 21:03> Initial Vital Signs Initial Vital Signs: Vital Signs Pulse Rate 54 L 12/13/24 04:30 Respiratory Rate 22 12/13/24 04:30 Blood Pressure 180/86 H 12/13/24 04:30 Pulse Oximetry 99 12/13/24 04:30 GENERAL: Alert pleasant well-appearing 89-year-old male and in no acute distress. HEENT: Head atraumatic,EOMI, pupils reactive, face symmetric, moist mucous membranes CARDIOVASCULAR: Regular rate and rhythm without murmurs, rubs or gallops. Pain is reproducible on 1 particular area just to the right of his left nipple towards a metal RESPIRATORY: Breath sounds equal bilaterally, no wheezes rales or rhonchi. ABDOMEN: Soft, nontender. Normoactive bowel sounds all 4 quadrants. No guarding or rebound. EXTREMITIES: Normal range of motion, no clubbing or edema. Neurovascularly intact NEUROLOGICAL: Alert and oriented x4.Normal gait and speech. Cranial nerves II through XII grossly intact. SKIN: Warm, dry, no laceration, no petechiae, no rashes or lesions. No rash vesicles or lesions <Farooq Pompa MD - Last Filed: 12/13/24 08:10> Initial Vital Signs Initial Vital Signs: Vital Signs Pulse Rate 54 L 12/13/24 04:30 Respiratory Rate 22 12/13/24 04:30 Blood Pressure 180/86 H 12/13/24 04:30 Pulse Oximetry 99 12/13/24 04:30 Course <Brittany Costa DO - Last Filed: 12/17/24 21:03> Orders Ordered: Discontinued Medications Aspirin (Aspirin 81 Mg Chew Tab) 324 mg PO NOW ONE Stop: 12/13/24 04:24 Last Admin: 12/13/24 05:15 Dose: 324 mg Documented By: PATY Oxycodone/Acetaminophen (Oxycodone/Acetaminophen 5/325 Tablet) 1 tab PO NOW ONE Stop: 12/13/24 07:56 Last Admin: 12/13/24 08:03 Dose: 1 tab Documented By: TIA Vital Signs Vital signs: Vital Signs - 8 hr 12/13/24 04:30 12/13/24 04:30 12/13/24 04:32 Temperature 97 F L Pulse Rate 54 L 56 L Respiratory Rate 22 18 Blood Pressure 180/86 H 177/86 H Pulse Oximetry 99 100 Oxygen Delivery Method Room Air 12/13/24 05:00 12/13/24 05:01 12/13/24 05:01 Temperature Pulse Rate 47 L 45 L Respiratory Rate 16 17 Blood Pressure 162/76 H Pulse Oximetry 99 98 Oxygen Delivery Method Room Air 12/13/24 05:30 12/13/24 05:30 12/13/24 06:00 Temperature Pulse Rate 45 L 42 L Respiratory Rate 16 14 Blood Pressure 163/77 H Pulse Oximetry 97 98 Oxygen Delivery Method Room Air 12/13/24 06:01 12/13/24 06:01 12/13/24 06:41 Temperature Pulse Rate 40 L 49 L Respiratory Rate 18 18 Blood Pressure 150/74 H Pulse Oximetry 95 100 Oxygen Delivery Method 12/13/24 07:00 12/13/24 07:30 12/13/24 07:44 Temperature Pulse Rate 51 L 44 L 51 L Respiratory Rate 22 24 23 Blood Pressure Pulse Oximetry 99 98 100 Oxygen Delivery Method 12/13/24 07:44 Temperature Pulse Rate Respiratory Rate Blood Pressure 176/89 H Pulse Oximetry Oxygen Delivery Method <Farooq Pompa MD - Last Filed: 12/13/24 08:10> Course Course Narrative: Care was assumed at 7:00 a.m. shift change. I reviewed previous ECGs and imaging and labs. They were remarkable for a negative CT angiogram, negative troponin x2, ECG showing atrial fibrillation with slow ventricular response with a poor baseline no ischemic EKG changes. I personally obtained a history from the patient, he reported chest pain focal and above and medial to his left nipple ongoing since 11:00 p.m. last night. Says it is waxing and waning and not provoked by exertion and not associated with shortness of breath nausea or diaphoresis. He has had this symptom numerous times since his Watchman procedure and had it after his Watchman procedure, no cause could be identified at that time. He is having pain at the time I see him. I will repeat EKG. Anticipate discharge unless this has ischemic findings. Additionally, patient was advised of his elevated D-dimer recommendations for follow up regarding that and his noted bradycardia which has been previously seen and recommendations for follow up regarding that as well. Orders Ordered: Discontinued Medications Aspirin (Aspirin 81 Mg Chew Tab) 324 mg PO NOW ONE Stop: 12/13/24 04:24 Last Admin: 12/13/24 05:15 Dose: 324 mg Documented By: PATY Oxycodone/Acetaminophen (Oxycodone/Acetaminophen 5/325 Tablet) 1 tab PO NOW ONE Stop: 12/13/24 07:56 Last Admin: 12/13/24 08:03 Dose: 1 tab Documented By: TIA Vital Signs Vital signs: Vital Signs - 8 hr 12/13/24 04:30 12/13/24 04:30 12/13/24 04:32 Temperature 97 F L Pulse Rate 54 L 56 L Respiratory Rate 22 18 Blood Pressure 180/86 H 177/86 H Pulse Oximetry 99 100 Oxygen Delivery Method Room Air 12/13/24 05:00 12/13/24 05:01 12/13/24 05:01 Temperature Pulse Rate 47 L 45 L Respiratory Rate 16 17 Blood Pressure 162/76 H Pulse Oximetry 99 98 Oxygen Delivery Method Room Air 12/13/24 05:30 12/13/24 05:30 12/13/24 06:00 Temperature Pulse Rate 45 L 42 L Respiratory Rate 16 14 Blood Pressure 163/77 H Pulse Oximetry 97 98 Oxygen Delivery Method Room Air 12/13/24 06:01 12/13/24 06:01 12/13/24 06:41 Temperature Pulse Rate 40 L 49 L Respiratory Rate 18 18 Blood Pressure 150/74 H Pulse Oximetry 95 100 Oxygen Delivery Method 12/13/24 07:00 12/13/24 07:30 12/13/24 07:44 Temperature Pulse Rate 51 L 44 L 51 L Respiratory Rate 22 24 23 Blood Pressure Pulse Oximetry 99 98 100 Oxygen Delivery Method 12/13/24 07:44 Temperature Pulse Rate Respiratory Rate Blood Pressure 176/89 H Pulse Oximetry Oxygen Delivery Method MDM - Chest Pain <Brittany Costa, - Last Filed: 12/17/24 21:03> Lab Data 12/13/24 04:50 12/13/24 04:50 Labs: Lab Results 12/13/24 12/13/24 Range/Units 04:50 06:50 WBC 5.5 (4.5-11.0) X10^3/uL RBC 3.43 L (4.5-5.9) X10^6/uL Hgb 10.2 L (13.5-17.5) g/dL Hct 30.5 L (41-53) % MCV 89.0 (80-100) fL MCH 29.9 (26-34) PG MCHC 33.6 (30-36) % RDW 17.1 H (11.6-14.8) % Plt Count 178 (150-400) X10^3/uL Neut % (Auto) 69.3 (50-75) % Lymph % (Auto) 17.3 L (25-40) % [place] % (Auto) 9.3 (3-14) % Eos % (Auto) 3.4 (2-4) % Baso % (Auto) 0.7 (0-2) % Neut # (Auto) 3800 (0442-7032) /uL Lymph # (Auto) 1000 L (2204-0447) /uL [place] # (Auto) 500 (0-900) /uL Eos # (Auto) 200 (0-450) /uL Baso # (Auto) 0 (0-100) /uL PT 12.6 H (9.4-12.5) SECONDS INR 1.1 (0.9-1.3) APTT 29 (25.1-36.5) SECONDS D-Dimer 93868 H (<500) ng/ml Sodium 137 (137-145) mmol/L Potassium 3.5 (3.4-5.1) mmol/L Chloride 100 (98-107) mmol/L Carbon Dioxide 31 (22-32) mmol/L BUN 18 (9-20) mg/dL Creatinine 0.80 (0.66-1.25) mg/dL Estimated GFR > 60 (>60) mL/min BUN/Creatinine Ratio 22.5 H (6-22) Glucose 102 (80-110) mg/dL Calcium 10.0 (8.4-10.2) mg/dL Magnesium 1.7 (1.6-2.3) mg/dL Total Bilirubin 1.0 (0.2-1.3) mg/dL AST 27 (17-59) IU/L ALT 14 (<50) IU/L Alkaline Phosphatase 100 (38-126) U/L Total Creatine Kinase 44 L (55-170) U/L Troponin I 0.019 0.015 (0.01-0.034) ng/mL NT-Pro-B Natriuret Pep 3320 H (<450) pg/mL Total Protein 6.5 (6.3-8.2) g/dL Albumin 3.7 (3.5-5.0) g/dL Globulin 2.8 (1.7-4.1) g/dL Albumin/Globulin Ratio 1.3 (1.0-2.8) Lipase 36 (23-300) U/L Imaging Data Chest x-ray: Radiologist's Impression: No acute cardiopulmonary process ECG Data Attestation: I personally reviewed and interpreted this ECG as follows: Prior ECG tracings: available for review Interpretation: Atrial fibrillation lots of artifact T-wave inversions appear improved from previous EKGs on November 16 2024 [facility] Narrative Medical decision making narrative: [facility] CC: Chest pain Complicating co-morbidities: CABG x3 2010 atrial fibrillation Watchman procedure hypertension Medical records reviewed: Recent admission November 16 reviewed. It does appear that he had bradycardic episodes in the 30s at that time he was taken carvedilol. He had a follow-up visit with primary care on 11/28/2024 which talks about doing another ZIO patch unclear if this has been done yet. Lisinopril and chlorthalidone was also discontinued however he continued with furosemide Differential considered: Acute coronary syndrome, bradycardia, shingles, pulmonary embolism musculoskeletal Exam documented above, pertinent findings include: Pleasant 89-year-old male presenting today with chest pain. It is 1 particular area reproducible Lab Test results independently reviewed as above. Pertinent findings: Troponin 0.019 BNP 3320 previously 3970 CBC shows stable anemia no leukocytosis CMP no electrolyte abnormality or MARAL D-dimer 14,419 Independently reviewed EKG as above difficult to read with artifact attempted a 2nd 1 no significant T-wave inversions ST changes overall appears similar or improved from previous EKGs Imaging studies independently reviewed: No acute cardiopulmonary process Consultations: 0600 Dr. Olivarez cardiology updated patient's symptoms test results bradycardia this time if asymptomatic recommends following up outpatient with a ZIO monitor Treatments: Aspirn Re-evaluations: Patient reports pain comes and goes does not seem to be significant he is bradycardic in the 30s and then goes up to 45. He reports that he is always dizzy he has not passed out it has not any worse Discussion: Patient 89-year-old male history of CABG in 2009 presenting today with a right-sided chest discomfort which almost seems to be musculoskeletal in nature. While in the ED he continues to have intermittent bradycardia sometimes runs as low as 33. I do not appreciate any significant AV jaden block. D-dimer was checked due to postop and recent hospitalization it was extremely elevated. He was not hypoxic. CT scan is pending Patient signed out to awaiting CT and repeat trop. <Farooq Pompa MD - Last Filed: 12/13/24 08:10> Lab Data Lab results narrative: Elevated D-dimer, CT angio was performed, troponins are normal x2. Labs: Lab Results 12/13/24 12/13/24 Range/Units 04:50 06:50 WBC 5.5 (4.5-11.0) X10^3/uL RBC 3.43 L (4.5-5.9) X10^6/uL Hgb 10.2 L (13.5-17.5) g/dL Hct 30.5 L (41-53) % MCV 89.0 (80-100) fL MCH 29.9 (26-34) PG MCHC 33.6 (30-36) % RDW 17.1 H (11.6-14.8) % Plt Count 178 (150-400) X10^3/uL Neut % (Auto) 69.3 (50-75) % Lymph % (Auto) 17.3 L (25-40) % [place] % (Auto) 9.3 (3-14) % Eos % (Auto) 3.4 (2-4) % Baso % (Auto) 0.7 (0-2) % Neut # (Auto) 3800 (1836-8027) /uL Lymph # (Auto) 1000 L (6721-0516) /uL [place] # (Auto) 500 (0-900) /uL Eos # (Auto) 200 (0-450) /uL Baso # (Auto) 0 (0-100) /uL PT 12.6 H (9.4-12.5) SECONDS INR 1.1 (0.9-1.3) APTT 29 (25.1-36.5) SECONDS D-Dimer 37310 H (<500) ng/ml Sodium 137 (137-145) mmol/L Potassium 3.5 (3.4-5.1) mmol/L Chloride 100 (98-107) mmol/L Carbon Dioxide 31 (22-32) mmol/L BUN 18 (9-20) mg/dL Creatinine 0.80 (0.66-1.25) mg/dL Estimated GFR > 60 (>60) mL/min BUN/Creatinine Ratio 22.5 H (6-22) Glucose 102 (80-110) mg/dL Calcium 10.0 (8.4-10.2) mg/dL Magnesium 1.7 (1.6-2.3) mg/dL Total Bilirubin 1.0 (0.2-1.3) mg/dL AST 27 (17-59) IU/L ALT 14 (<50) IU/L Alkaline Phosphatase 100 (38-126) U/L Total Creatine Kinase 44 L (55-170) U/L Troponin I 0.019 0.015 (0.01-0.034) ng/mL NT-Pro-B Natriuret Pep 3320 H (<450) pg/mL Total Protein 6.5 (6.3-8.2) g/dL Albumin 3.7 (3.5-5.0) g/dL Globulin 2.8 (1.7-4.1) g/dL Albumin/Globulin Ratio 1.3 (1.0-2.8) Lipase 36 (23-300) U/L Imaging Data CT scan - chest: My Impression: No pulmonary embolism, no infiltrate Radiologist's Impression: From the preliminary interpretation ?no pulmonary embolism or aortic dissection. Aneurysmal dilatation of the ascending aorta which measures 4.7 cm in maximum anterior-posterior dimension. Left lower lobe pulmonary nodule measuring 5 mm. If patient is high risk, consider 12 month follow-up CT. Incidental findings as detailed. ? ECG Data Interpretation: Atrial fibrillation lots of artifact T-wave inversions appear improved from previous EKGs on November 16 2024 ECG is repeated at 8:03 a.m., shows atrial fibrillation with slow ventricular response premature ventricular complexes no acute ischemic changes Discharge Plan Departure Patient Disposition: Home Clinical Impression: Chest pain Qualifiers: Chest pain type: unspecified Qualified Code(s): R07.9 - Chest pain, unspecified Activity Restrictions/Additional Instructions: Emergency department evaluation does not reveal a worrisome cause for your chest pain. I think it is safe to go home and continue previous home medications and use Tylenol as needed for your chest pain. If you are having increasing pain or shortness of breath or other acute symptoms recheck in the emergency department. We also recommend that you follow up as soon as possible with your primary care provider. When you see your primary care provider, recommend that you discuss your slow heart rate (bradycardia), and asked her provider to review labs from today's visit including an elevated D-dimer which is presently unexplained and also review today's CT scan. Prescriptions: No Action gabapentin 300 mg capsule 300 mg PO TID PRN (Reason: nerve pain) Qty: 90 2RF alfuzosin 10 mg tablet extended release 24 hr 10 mg PO DAILY Qty: 90 3RF Rx Instructions: administer after the same meal each day tramadol 50 mg tablet 50 mg PO BID PRN (Reason: pain) Qty: 42 1RF docusate sodium 100 mg capsule 100 mg PO DAILY PRN (Reason: Constipation) potassium chloride 8 mEq tablet extended release 8 meq PO DAILY Qty: 90 3RF furosemide 20 mg tablet 20 mg PO DAILY Qty: 90 4RF acetaminophen 650 mg Tablet Extended Release 650 mg PO DAILY PRN (Reason: Pain (Scale Score 1-3)) omega 1-qxs-ruq-fish oil [Fish Oil] 1,200 (144-216) mg Capsule 2 cap PO DAILY Emanuel (3 month) 22.5 mg Syringe 22.5 mg SUBCUT [id number] aspirin 81 mg Capsule 81 mg PO BID Qty: 90 0RF fluocinonide 0.05 % ointment 1 applic topical BID cholecalciferol (vitamin D3) 50 mcg (2,000 unit) capsule 50 mcg PO DAILY fluorouracil 5 % cream 1 applic topical BID atorvastatin 80 mg tablet 80 mg PO DAILY glucosamine HCl 1,500 mg tablet 1,500 mg PO BID Rx Instructions: administer with a meal Gemtesa 75 mg tablet 75 mg PO DAILY Qty: 30 12RF Referrals: Chriss Mayroga MD [Primary Care Provider] - Stand Alone Forms: Patient Portal/API/Survey
[2024-12-13 04:58] LABS: Add Manual Diff / Slide Review NO; Basophils Absolute Auto 0 /uL (0-100); Basophils Percent Auto 0.7 % (0-2); Eosinophils Absolute Auto 200 /uL (0-450); Eosinophils Percent Auto 3.4 % (2-4); Hematocrit 30.5 % (41-53); Hemoglobin 10.2 g/dL (13.5-17.5); Lymphocytes Absolute Auto 1000 /uL (1100-4500); Lymphocytes Percent Auto 17.3 % (25-40); Mean Corpuscular HGB Conc 33.6 % (30-36); Mean Corpuscular Hemoglobin 29.9 PG (26-34); Monocytes Absolute Auto 500 /uL (0-900); Monocytes Percent Auto 9.3 % (3-14); Neutrophils Absolute Auto 3800 /uL (1500-7000); Neutrophils Percent Auto 69.3 % (50-75); Platelet Count 178 X10^3/uL (150-400); Red Blood Cell Count 3.43 X10^6/uL (4.5-5.9); Red Cell Distribution Width 17.1 % (11.6-14.8); White Blood Cell Count 5.5 X10^3/uL (4.5-11.0)
[2024-12-13 05:04] LABS: INR 1.1 (0.9-1.3); Prothrombin Time 12.6 SECONDS (9.4-12.5)
[2024-12-13 05:06] LABS: PTT Partial Thromboplastin Tim 29 SECONDS (25.1-36.5)
[2024-12-13 05:09] LABS: Alanine Aminotransferase 14 IU/L (<50); Albumin 3.7 g/dL (3.5-5.0); Albumin Globulin Ratio 1.3 (1.0-2.8); Alkaline Phosphatase 100 U/L (38-126); Aspartate Aminotransferase 27 IU/L (17-59); BUN Creatinine Ratio 22.5 (6-22); Blood Urea Nitrogen 18 mg/dL (9-20); Carbon Dioxide 31 mmol/L (22-32); Chloride 100 mmol/L (98-107); Creatine Kinase 44 U/L (55-170); Estimated Glomerular Filt Rate > 60 mL/min (>60); Globulin 2.8 g/dL (1.7-4.1); Glucose 102 mg/dL (80-110); HEMOLYSIS < 15 (0-50); Lipase 36 U/L (23-300); Magnesium 1.7 mg/dL (1.6-2.3); Potassium 3.5 mmol/L (3.4-5.1); Sodium 137 mmol/L (137-145); Total Protein 6.5 g/dL (6.3-8.2)
[2024-12-13] MEDS: ASPIRIN 81 MG CHEW TAB 324 MG PO (05:15)
[2024-12-13 05:20] LABS: NT-proBNP (BNP-Adult 18+) 3320 pg/mL (<450); Troponin I 0.019 ng/mL (0.01-0.034)
[2024-12-13 06:15] LABS: D Dimer 14419 ng/ml (<500)
--- NOTE | 2024-12-13 06:24 | DI.CT.S_ITS ---
PROCEDURE: CT ANGIO CHEST PE PROTOCOL INDICATIONS: chest pain post op very high dimer TECHNIQUE: After the administration of intravenous contrast, 2 mm thick sections acquired from the pulmonary apices to the posterior costophrenic angles. 3-dimensional maximum intensity projection (MIP) coronal and sagittal reformats were then acquired through the thorax. For radiation dose reduction, the following was used: automated exposure control, adjustment of mA and/or kV according to patient size. COMPARISON: [facility], CT, CT ABDOMEN PELVIS W CON, 01/27/2023, 9:40. FINDINGS: Image quality: Diagnostic. Pulmonary arteries: Pulmonary arteries are normal in size, and demonstrate no intraluminal filling defects to suggest central pulmonary embolism. Lower Neck: No enlarged lymph nodes. Thyroid: No thyroid nodules which require sonographic follow up, per consensus guidelines. Axillae: No enlarged lymph nodes. Chest Wall: Unremarkable. Bones: Unremarkable. Lungs and Pleura: No pneumothorax or pleural effusions. Stable 5 millimeter solid nodule in the left lower lobe compared with 2022; this is statistically benign . Heart: Cardiomegaly. Atrial occlusion device. Coronary artery calcifications with stents. Prior CABG. Thoracic Vessels: Ascending aortic aneurysm measuring 4.3 centimeter. Dilation of the main pulmonary artery at 4.1 centimeter. Mediastinum and [place]: No enlarged lymph nodes. Esophagus: No wall thickening. No hiatal hernia. Upper Abdomen: Hepatic and renal cystic lesions. Aortic stent. IMPRESSION: No pulmonary embolus. No acute cardiopulmonary process. Ascending aortic aneurysm measuring 4.3 centimeter. Recommend yearly follow-up. Dilated main pulmonary artery, suggestive of pulmonary hypertension. Agree with preliminary report. Dictated by: Tremaine Trejo M.D. on 12/13/2024 at 8:15 Approved by: Tremaine Trejo M.D. on 12/13/2024 at 8:28
--- NOTE | 2024-12-13 06:50 | EKG_ITS ---
[facility] [address] [place] [id number] Test Date: 2024-12-13 Pat Name: Lionel Adkins Department: Room: Gender: Male Ladler: : 1935 Requested By: Order Number: [id number] Reading MD: Odilon Rosas Measurements Intervals [place] Rate: 57 P: NV: QRS: -63 QRSD: 120 T: 29 QT: 472 QTc: 459 Interpretive Statements Atrial fibrillation with slow ventricular response with a competing junctional pacemaker with premature ventricular or aberrantly conducted complexes Left axis deviation Inferior infarct , age undetermined Electronically Signed On 12-13-2024 23:45:19 PST by Odilon Rosas
[2024-12-13 07:16] LABS: Troponin I 0.015 ng/mL (0.01-0.034)
--- NOTE | 2024-12-13 07:55 | EKG_ITS ---
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
[2024-12-13] MEDS: OXYCODONE/ACETAMINOPHEN 5/325 TABLET 1 TAB PO (08:03)
== END 2024-12-13 08:31 | disposition home or self-care (01) ==
PROVIDERS: Emergency Medicine; Emergency Provider Emergency Medicine; Family Provider Internal Medicine; PCP Internal Medicine
DX: R07.9 Chest pain, unspecified (principal); I73.9 Peripheral vascular disease, unspecified; I10 Essential (primary) hypertension; I25.2 Old myocardial infarction; R00.1 Bradycardia, unspecified; I48.91 Unspecified atrial fibrillation; Z95.1 Presence of aortocoronary bypass graft; Z95.818 Presence of other cardiac implants and grafts; Z95.828 Presence of other vascular implants and grafts
CPT/HCPCS: 36415; 71045; 71275; 80053; 82550; 83690; 83735; 83880; 84484; 85025; 85379; 85610; 85730; 93005; 99284; 99285; Q9967

== ENCOUNTER → 2024-12-26 14:46 | Outpatient (CLI) | payer MEDICARE, SELFPAY ==
[2024-12-20 09:45] VITALS: BMI 24.0
[2024-12-26 16:05] LABS: Alanine Aminotransferase 15 IU/L (<50); Albumin 3.8 g/dL (3.5-5.0); Albumin Globulin Ratio 1.6 (1.0-2.8); Alkaline Phosphatase 77 U/L (38-126); Aspartate Aminotransferase 30 IU/L (17-59); BUN Creatinine Ratio 26.9 (6-22); Bilirubin Total 0.8 mg/dL (0.2-1.3); Blood Urea Nitrogen 21 mg/dL (9-20); Calcium 10.2 mg/dL (8.4-10.2); Carbon Dioxide 34 mmol/L (22-32); Chloride 98 mmol/L (98-107); Estimated Glomerular Filt Rate > 60 mL/min (>60); Globulin 2.4 g/dL (1.7-4.1); Glucose 113 mg/dL (80-110); HEMOLYSIS 18 (0-50); Potassium 4.2 mmol/L (3.4-5.1); Sodium 139 mmol/L (137-145); Total Protein 6.2 g/dL (6.3-8.2)
== END ==
PROVIDERS: Family Provider Internal Medicine; PCP Internal Medicine; Referring Provider Internal Medicine Cardiovascular Disease; Visit Provider Internal Medicine Cardiovascular Disease
DX: I10 Essential (primary) hypertension (principal)
CPT/HCPCS: 36415; 80053

== ENCOUNTER → 2024-12-27 13:48 | Outpatient (CLI) | payer MEDICARE, SELFPAY ==
[2024-12-20 09:45] VITALS: BMI 24.0
--- NOTE | 2025-01-09 07:57 | PC.NURSE ---
Critical [facility] report received by cardiopulmonary rehab 01/09/25, messaged sent to prescribing physician Chriss Mayorga MD at 7:54am. No fax sent as has zio suite privileges.
== END ==
LOC: CAR 13:49
PROVIDERS: Family Provider Internal Medicine; PCP Internal Medicine; Referring Provider Internal Medicine; Visit Provider Internal Medicine
DX: R00.1 Bradycardia, unspecified (principal)
CPT/HCPCS: 93242

== ENCOUNTER 2025-01-16 14:27 | Emergency (ER) | payer MEDICARE, SELFPAY ==
[2024-12-20 09:45] VITALS: BMI 24.0
[2025-01-16 14:31] VITALS: BP 147/73; PULSE 50; RESP 18; TEMP 36.3; O2SAT 100; BMI 24.4
[2025-01-16 14:36] VITALS: BP 145/78; PULSE 69; RESP 16; O2SAT 99
--- NOTE | 2025-01-16 14:51 | ED.EXTPRO ---
HPI - Extremity Problem General Chief complaint: Extremity Problem,Nontraumatic Stated complaint: poss dvt L leg Time Seen by Provider: 01/16/25 14:51 History of Present Illness HPI Narrative: Left knee replacement in November of this year with Dr. Hirsch, was attending physical therapy and they are concerned that there was more swelling and redness to the knee. Patient notes that he has been having waxing and waning edema that does seem to be related to activity. He is complaining of no pain quite pleased with his increased overall mobility. No fevers. Active participation with physical therapy. No palpitations or chest pain Related Data Home Medications Medication Instructions Recorded Confirmed glucosamine HCl 1,500 mg tablet 1,500 mg PO BID 11/20/21 12/20/24 docusate sodium 100 mg capsule 100 mg PO DAILY PRN Constipation 05/03/23 12/20/24 fluorouracil 5 % topical cream 1 applic topical BID 07/21/23 12/20/24 cholecalciferol (vitamin D3) 50 50 mcg PO DAILY 02/28/24 12/20/24 mcg (2,000 unit) capsule fluocinonide 0.05 % topical 1 applic topical BID 02/28/24 12/20/24 ointment atorvastatin 80 mg tablet 80 mg PO DAILY 08/16/24 12/20/24 acetaminophen 650 mg 650 mg PO DAILY PRN Pain (Scale 09/27/24 12/20/24 tablet,extended release Score 1-3) omega 3-ila-hot-fish oil 1,200 mg 2 cap PO DAILY 09/27/24 12/20/24 (144 mg-216 mg) capsule (Fish Oil) leuprolide (3 month) 22.5 mg (3 22.5 mg SUBCUT [id number] 11/03/24 12/20/24 month) subcutaneous syringe ([employer]) cyclosporine 0.05 % eye drops in a 1 drp EYE-BOTH BID 12/20/24 12/20/24 dropperette Previous Rx's Medication Instructions Recorded potassium chloride 8 mEq 8 meq PO DAILY #90 tabs 03/02/24 tablet,extended release vibegron 75 mg tablet (Gemtesa) 75 mg PO DAILY #30 tabs 03/02/24 alfuzosin 10 mg tablet,extended 10 mg PO DAILY #90 tabs 05/17/24 release 24 hr tramadol 50 mg tablet 50 mg PO BID PRN pain #42 tabs 06/12/24 furosemide 20 mg tablet 20 mg PO DAILY #90 tabs 10/17/24 aspirin 81 mg capsule 81 mg PO BID #90 caps 11/17/24 gabapentin 300 mg capsule 300 mg PO TID PRN nerve pain #90 12/21/24 caps Allergies Allergy/AdvReac Type Severity Reaction Status Date / Time simvastatin [SIMVASTATIN] AdvReac Mild MUSCLE Verified 12/21/24 11:34 ACHES Review of Systems Review of Systems Narrative: Pertinent positive and negative findings as per HPI Patient History Medical History Nocturia Constipation A-fib PAD (peripheral artery disease) History of myocardial infarction 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) (07/19/12) History of COVID-19 (2023) Arthritis Spinal stenosis Skin cancer History of TIAs HTN (hypertension) 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) Androgen deprivation therapy Mild neurocognitive disorder Peripheral edema Paroxysmal atrial fibrillation (~04/2023) Current use of filler leaf cutter long anticoagulation Facet arthropathy, lumbar Overactive bladder Prostate cancer Asymptomatic microscopic hematuria Spondylolisthesis at L4-L5 level Lumbar stenosis with neurogenic claudication Left knee DJD Urinary Incontinence BPH w urinary obs/LUTS Benign essential HTN (09/22/11) Hyperlipidemia, mixed (09/22/11) Bilateral cataracts Status post repair of abdominal aortic aneurysm (AAA) using straight graft (09/21/17) History of endovascular stent graft for abdominal aortic aneurysm (AAA) (09/21/17) 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 (02/15/17) Abdominal aortic aneurysm (AAA) (06/24/15) Surgical History Status post left knee replacement (~11/2024) History of surgical procedure (07/30/17) History of surgical procedure (10/14/15) History of surgical procedure (10/07/15) History of surgical procedure (03/06/14) Hx of bilateral cataract extraction History of ear surgery History of knee replacement procedure of right knee H/O endovascular stent graft for abdominal aortic aneurysm (~06/2019) History of appendectomy Hx laparoscopic cholecystectomy History of coronary artery bypass graft x 3 (~12/2009) Family History Sister Cancer Social History marital status: number of children: 3 household members: spouse Smoking Status: Never smoker alcohol intake: current Type(s) of exercise: other frequency: 3-4 times per week Smoking Status: Never smoker alcohol intake frequency: holidays/special occasions only Exam Initial Vital Signs Initial Vital Signs: Vital Signs Temperature 97.3 F L 01/16/25 14:31 Pulse Rate 50 L 01/16/25 14:31 Respiratory Rate 18 01/16/25 14:31 Blood Pressure 147/73 H 01/16/25 14:31 Pulse Oximetry 100 01/16/25 14:31 Oxygen Delivery Method Room Air 01/16/25 14:31 General: Alert appropriate in no acute distress Respiratory: Able to speak in full sentences, no obvious respiratory distress Skin: No obvious rashes, warm and dry Neurologic: Grossly intact no obvious asymmetries or abnormalities Psych: appropriate insight and affect, cooperative Lower extremity: Left leg is significantly more edematous than the right. His surgical site is healing nicely with no signs of infection. There is minimal warmth or redness around the knee joint. There is absolutely no tenderness to palpation or through full range of motion. He is able to stand without difficulty Course Orders Ordered: ED Orders 01/16/25 14:55 US periph venous low extrem lt Stat Vital Signs Vital signs: Vital Signs - 8 hr 01/16/25 14:31 Temperature 97.3 F L Pulse Rate 50 L Respiratory Rate 18 Blood Pressure 147/73 H Pulse Oximetry 100 Oxygen Delivery Method Room Air MDM - Extremity (Nontraumatic) MDM Narrative Medical decision making narrative: 89-year-old gentleman with recent left knee replacement was physical therapy they were concerned in his left leg was more swollen. He is evaluated in the emergency department and ultrasound indicates no evidence of acute DVT. Based on absence of warmth to the touch, no pain through full range of motion of the knee and patient reports that he feels quite well today my suspicion for cellulitis or septic joint are exceptionally low. I believe he has been feeling better, is simply more active in his having bit more edema. We talked about using compression socks, keeping the leg elevated when he is home and continuing with physical therapy. There was no indication for additional workup or hospitalization at this time and he is safe for discharge Discharge Plan Departure Patient Disposition: Home Clinical Impression: Edema of left lower extremity Activity Restrictions/Additional Instructions: Thank you for coming in today You do not have a blood clot in your left leg Given the fact that you have no pain through range of motion of your joint and no pain with palpation, I do not suspect a joint infection or a skin infection. I would encourage you to continue with your overall increased activity, you may find that using compression socks is helpful in controlling that has swelling a bit more after your recent knee replacement. I would also encourage you to reschedule your physical therapy appointment. If you find that you are getting worse or develop any new symptoms, please feel free to return to the emergency department for further evaluation. Prescriptions: No Action alfuzosin 10 mg tablet extended release 24 hr 10 mg PO DAILY Qty: 90 3RF Rx Instructions: administer after the same meal each day tramadol 50 mg tablet 50 mg PO BID PRN (Reason: pain) Qty: 42 1RF gabapentin 300 mg capsule 300 mg PO TID PRN (Reason: nerve pain) Qty: 90 2RF docusate sodium 100 mg capsule 100 mg PO DAILY PRN (Reason: Constipation) potassium chloride 8 mEq tablet extended release 8 meq PO DAILY Qty: 90 3RF furosemide 20 mg tablet 20 mg PO DAILY Qty: 90 4RF acetaminophen 650 mg Tablet Extended Release 650 mg PO DAILY PRN (Reason: Pain (Scale Score 1-3)) omega 2-blp-wgv-fish oil [Fish Oil] 1,200 (144-216) mg Capsule 2 cap PO DAILY Emanuel (3 month) 22.5 mg Syringe 22.5 mg SUBCUT [id number] aspirin 81 mg Capsule 81 mg PO BID Qty: 90 0RF fluocinonide 0.05 % ointment 1 applic topical BID cholecalciferol (vitamin D3) 50 mcg (2,000 unit) capsule 50 mcg PO DAILY fluorouracil 5 % cream 1 applic topical BID atorvastatin 80 mg tablet 80 mg PO DAILY cyclosporine 0.05 % dropperette 1 drp EYE-BOTH BID glucosamine HCl 1,500 mg tablet 1,500 mg PO BID Rx Instructions: administer with a meal Gemtesa 75 mg tablet 75 mg PO DAILY Qty: 30 12RF Referrals: Chriss Mayorga MD [Primary Care Provider] - Stand Alone Forms: Patient Portal/API/Survey
--- NOTE | 2025-01-16 14:55 | DI.US.S_ITS ---
PROCEDURE: US PERIPH VENOUS LOW EXTREM LT INDICATIONS: edema, ? post op dvt TECHNIQUE: Real-time imaging, as well as color and pulse Doppler interrogation, were performed of the lower extremity deep veins from the inguinal ligament to the popliteal fossa, with documentation of the visualized calf veins. COMPARISON: None. FINDINGS: The common femoral, femoral, popliteal, and the visualized calf veins are normally compressible, and free of intraluminal thrombus. Color and pulse Doppler demonstrate normal phasic intraluminal flow. There is normal augmentation response to distal compression maneuver. IMPRESSION: No evidence of DVT in visualized left lower extremity veins. Dictated by: Cj Ivy M.D. on 01/16/2025 at 16:03 Approved by: Cj Ivy M.D. on 01/16/2025 at 16:03
[2025-01-16 15:36] VITALS: BP 138/77; PULSE 78; RESP 18; O2SAT 98
== END 2025-01-16 16:22 | disposition home or self-care (01) ==
PROVIDERS: Emergency Provider Emergency Medicine; Family Provider Internal Medicine; PCP Internal Medicine
DX: R60.0 Localized edema (principal); Z96.652 Presence of left artificial knee joint
CPT/HCPCS: 93971; 99281; 99283

== ENCOUNTER 2025-01-30 15:15 | Outpatient (RCR) | payer MEDICARE, SELFPAY ==
[2024-11-23 10:51] VITALS: BMI 24.0
--- NOTE | 2024-11-23 16:00 | PT.OIE ---
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 (02/15/17) Current use of jail anticoagulation 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) (07/19/12) Facet arthropathy, lumbar History of COVID-19 (2023) History of endovascular stent graft for abdominal aortic aneurysm (AAA) (09/21/17) History of myocardial infarction History of TIAs HTN (hypertension) Hyperlipidemia, mixed (09/22/11) Left knee DJD Lumbar stenosis with neurogenic claudication Mild neurocognitive disorder Overactive bladder PAD (peripheral artery disease) Paroxysmal atrial fibrillation (~04/2023) Peripheral edema 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) Prostate cancer Skin cancer Spinal stenosis Spondylolisthesis at L4-L5 level Status post repair of abdominal aortic aneurysm (AAA) using straight graft (09/21/17) Urinary Incontinence Past Surgical History (Last Reviewed 11/20/24 @ 12:45 by Uzma Ruiz PA-C) H/O endovascular stent graft for abdominal aortic aneurysm (~06/2019) History of appendectomy History of coronary artery bypass graft x 3 (~12/2009) History of ear surgery History of knee replacement procedure of right knee History of surgical procedure (03/06/14) History of surgical procedure (10/07/15) History of surgical procedure (10/14/15) History of surgical procedure (07/30/17) Hx laparoscopic cholecystectomy Hx of bilateral cataract extraction Visit Care Team Role Provider Type Chriss Mayorga MD Family Provider Physician Primary Care Provider Specialty: Internal Medicine Address: [address] [place] [address], [address] [place] [address], [id number] Email: [email or web address] Tyshawn Abdullahi DO Attending Provider Physician Referring Provider Specialty: Interventional Radiology Physiatry Pain Management Address: [address] [place], [address] Email: [email or web address] Physical Therapy Initial Evaluation PT-OP-A Visit Information Start: 11/23/24 08:05 Freq: Status: Active Protocol: Document 11/23/24 14:31 NM (Rec: 11/23/24 15:59 NM [id number]) Out-Patient Physical Therapy Visit Information Visit Information Visit Type Initial Evaluation Visit Note KX after 19 visits Visit Start Time 14:33 Visit Stop Time 15:15 Visit Number 1 Evaluation Information Evaluation Date 11/23/24 Precautions Precautions L TKA 11/15/24; WBAT w/ FWW PT-OP-B Current Condition Start: 11/23/24 08:05 Freq: Status: Active Protocol: Document 11/23/24 14:31 NM (Rec: 11/23/24 15:59 NM [id number]) Current Condition History of Current Condition Onset Date DOS 11/15/24 Current Complaints pain, swelling, weakness, poor mobility, balance History of Current Condition Pt presents following L TKA on 11/15/24. Surgeon Dr. Conteh. Pt spent 2 days in hospital post surgery due to high heart rate, low blood pressure. Has since resolved. Pt also recently when to ED due to constipation following surgery . No dizziness, lightheadedness. present at evaluation and assisting with providing hx. Pt presents in manual wheelchair due to poor activity tolerance following several appt today, brought FWW. 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 Has been using FWW for mobility since surgery. Pt has 2 steps to enter home, L hand rail; stairs in home but does not use. Lives with . Bedroom is downstairs. Has 2 week follow up next week. No falls, no knee buckling since surgery. Has been performing HEP provided by hospital. Sleeping a temporary bed or recliner at home, has had leg propped up with knee bent. Has been icing several times ea day. is concerned about pt getting up at night alone to use bathroom as concerned about falls due to pain. Has been having adult kids help with nighttime care. Has not been wearing compression socks or hose; unsure if supposed to wear compression. Prior Treatments and Tests Previous PT prior to surgery Treatment Goals Patient/Caregiver Goals walks with family, get out in the shop, lawnmower PT-OP-C Subjective Start: 11/23/24 08:05 Freq: Status: Active Protocol: Document 11/23/24 14:31 NM (Rec: 11/23/24 15:59 NM [id number]) OP-PT Subjective Patient Comments Patient Comments Pt consents to participate in PT evaluation Patient Questionnaires Lower Extremity Functional Scale LEFS Score OP-PT Pain Assessment Location left knee Pain Location Details incision, across patella Intensity 7 Scale Used Numeric (0 - 10) Description Aching,Dull Description- Other worst: 7 Pain Aggravating Factors Position,Changing Position,ADL 's,Activity,Standing,Sitting, Walking,Stair Climbing,Bending Other Pain Aggravating Factors sleeping Pain Alleviating Factors Cold,Medication Comments Pain Comments Tylenol as needed, oxycodone PT-OP-F Manual Assessment Start: 11/23/24 08:05 Freq: Status: Active Protocol: Document 11/23/24 14:31 NM (Rec: 11/23/24 15:59 NM [id number]) Manual Assessments Soft Tissue Assessment Soft Tissue Mobility Assessment Tightness and tenderness of L calf, hamstring, and hip flexors Joint Mobility Assessment Joint Mobility Assessment Decreased L knee PROM and AROM secondary to pain, swelling, and weakness. Limited active ankle mobility and hip mobility due to pain PT-OP-G Mobility & Gait Start: 11/23/24 08:05 Freq: Status: Active Protocol: Document 11/23/24 14:31 NM (Rec: 11/23/24 15:59 NM [id number]) OP Mobility Evaluation Bed Mobility Rolling Able to roll IND Supine to and from Sit Needs min A to lift LLE onto table but able to initiate 75% of motion Close SBA to assist with lowering LLE from table due to pain Transfers Sit to Stand CGA; Requires BUE assist to stand to FWW, 1 hand assist to sit. Maintains BLE equidistant, needs cueing for eccentric control OP Gait Assessment Gait Gait Assistance Required: Contact Guard Assist Distance (Feet) 131 Assistive Devices Assistive Device Gait Belt,Front Wheeled Walker Gait Deviations General Gait Pattern Antalgic,Decreased Feet Clearance Factors Limiting Gait Function Factors Limiting Gait Function Decreased Activity Tolerance, Decreased Strength,Limited Range of Motion,Pain PT-OP-J Posture/Palpation/Skin Start: 11/23/24 08:05 Freq: Status: Active Protocol: Document 11/23/24 14:31 NM (Rec: 11/23/24 15:59 NM [id number]) Palpation Assessment Location L knee Palpation Findings Edema,Tenderness Palpation Details Swelling present around knee, calf and thigh; will measure next session Tenderness in quad, hamstring Skin Assessment Incisional Assessment Incision Appearance/Comments Incision covered by intact bandage. No bleeding or drainage evident through bandage Other Assessments Skin Assessment Comments Swelling in LLE compared to RLE but no signs or symptoms of infection or DVT PT-OP-K Range of Motion Start: 11/23/24 08:05 Freq: Status: Active Protocol: Document 11/23/24 14:31 NM (Rec: 11/23/24 15:59 NM [id number]) Knee Goniometric Range of Motion Knee Right Flexion Active (degrees) 124 Extension Active (degrees) 0 Left Flexion Active (degrees) 107 Extension Active (degrees) 10 Comments limited by pain PT-OP-M Strength Start: 11/23/24 08:05 Freq: Status: Active Protocol: Document 11/23/24 14:31 NM (Rec: 11/23/24 15:59 NM [id number]) Hip Strength Hip Manual Muscle Testing Right Flexion (L2) 4 Good Extension (S1) 4 Good Abduction 4 Good Adduction 4 Good External Rotation 4 Good Internal Rotation 4 Good Left Flexion (L2) 3+ Fair+ Extension (S1) 3+ Fair+ Abduction 3+ Fair+ Adduction 3+ Fair+ External Rotation 3 Fair Internal Rotation 3 Fair Comments limited by pain Knee Strength Knee Manual Muscle Testing Right Flexion (S2) 4 Good Extension (L3) 4 Good Left Flexion (S2) 3- Fair- Extension (L3) 3- Fair- Comments limited by pain; did not assess with resistance to protect surgical repair Ankle/Foot Strength Ankle and Foot Manual Muscle Testing Right Dorsiflexion (L4) 4 Good Plantarflexion (S1) 4 Good Left Dorsiflexion (L4) 4 Good Plantarflexion (S1) 4 Good PT-OP-Q Treatments Start: 11/23/24 08:05 Freq: Status: Active Protocol: Document 11/23/24 14:31 NM (Rec: 11/23/24 15:59 NM [id number]) Therapeutic Exercises Supine Exercises knee extension stretch Supine Exercise Name HEP -passive Side left Equipment Used pillow under calf/ankle Reps/Minutes 2 min Comments educated to perforom multiple times ea day, work up tolerance quad sets Supine Exercise Name HEP Side left Equipment Used towel roll under knee Reps/Minutes 15x2 Comments improved quad contraction with reps ankle pumps Supine Exercise Name HEP Side left Reps/Minutes 30 Comments educated to perform ea hour at home, incl. w/ cryotherapy Sitting Exercises knee extension Sitting Exercise Name quad set while passively stretching on stool Side left Equipment Used heel elevated Reps/Minutes 60 Comments cued for set up; monitored for pain Self-Care/Home Management Treatment Education Patient Education Home Exercise Program,Joint Protection,Pain Management, Safety Caregiver Education 5 min- Education provided to on positioning of LLE during cryotherapy with pillows under calf/ankle and knee for elevation; strong education to avoid positions where knee remains flexed for prolonged periods (e.g. sustained sitting or sleeping) . Education provided to on sleeping positions with pillow under calf/ankle but not knee. Recommended that walkways be lit and clear, no animals /pets present at night , still close by for bathroom breaks if pain continues to be high. Other Education 5 min- Education on use of compression garments for swelling management as long as not contraindicated for pt by magazine filler or surgeon. Recommended garments from foot to thigh, not too intense of compression. Educated that pt needs to wear shoes or non- slip socks at all times. Recommended that pt ambulate at least every 30 min to 1 hour for a couple minutes to avoid remaining in sustained positions. Avoid hip ER positioning for long periods PT-OP-T Assessment and Plan Start: 11/23/24 08:05 Freq: Status: Active Protocol: Document 11/23/24 14:31 NM (Rec: 11/23/24 15:59 NM [id number]) Physical Therapy Assessment Rehab Potential Rehabilitation Potential Good Evaluation Complexity Number of Personal Factors/Comorbidities 3 or More Number of Body Systems Impaired 4 or More Clinical Presentation at Evaluation Stable Impairments Impairments Activity Tolerance,Balance, Edema,Functional Activities, Functional Mobility,Gait, Integument,Pain,Posture,ROM, Sensation,Soft Tissue Mobility ,Strength,Transfers Other Concerns Fall Risk high Age Related Concerns PMH: watchman procedure, hx stroke/TIA, arthritis, back pain, hearing problems, vision problems Goals Four Impairment use of FWW; 2 MWT distance 131 ft with FWW Short Term Goal (STG) Pt will normalize gait mechanics using LRAD if appropriate with L knee pain < 3/10 in order to demonstrate improved tolerance for gait and decreased fall risk STG Duration 6 weeks Service Order Dispatcher Goal (LTG) Pt will be able to complete 6 MWT >1100 ft (pre-op 6 MWT distance) in order to demonstrate improved tolerance for family ambulation outings LTG Duration 12 weeks Three Impairment needs assist with transfers Short Term Goal (STG) Pt will be IND with bed transfers in order to demonstrate increased mobility STG Duration 5 weeks Shelter Goal (LTG) Pt will be able be able to complate 30 sec sit to stand test within age-related norm in order to demonstrate improved strength and endurance needed for cars and toilet/chair transfers LTG Duration 12 weeks Two Impairment L knee strength impaired Short Term Goal (STG) Pt will increase L knee flex/ ext and global L hip strength to at least 4-/5 in order to demonstrate improved strength for gait, transfers, and stairs STG Duration 8 weeks Service Order Dispatcher Goal (LTG) Pt will increase L knee flex/ ext and global L hip strength to at least 4/5 in order to demonstrate improved strength for gait, transfers, and stairs LTG Duration 12 weeks One Impairment L knee ROM lacking 10 deg ext to 107 deg flex Short Term Goal (STG) Pt will improve L knee ext to least lacking 5 deg and L knee flexion to at least 115 deg in order to improve ROM for gait and transfers STG Duration 6 weeks Shelter Goal (LTG) Pt will improve L knee ext to lacking 2 deg or less and L knee flexion AROM to at least 120 deg in order to improve ROM for gait and transfers LTG Duration 12 weeks Assessment Summary Assessment Pt is an 89 y.o. presenting s/ p L TKA on 11/15/24. His primary concern following surgery is pain management. Pt spent several days in hospital following complications due to his heart rate and blood pressure. Pt currently has impairments in L knee ROM, strength, gait, balance, swelling management, activity tolerance, transfers, and pain management. His gait is antalgic with a FWW. He can only complete a 2 MWT due to pain. Prior to surgery, pt used an spc frequently for balance. Pt needs assistance for bed-chair transfers and CGA for sit to stand transfers due to poor control. Swelling is present throughout LLE. Incision is covered by a bandage, which is intact without signs of infection. Pt has been compliant with post- op HEP. PT educated pt and his on exam findings and plan of care. Initiated post- op HEP and provided education regarding positioning, sleeping, and swelling management. Pt would benefit from skilled PT for progressive ROM and strengthening in order to improve symptom management, functional mobility with gait and transfers, indepedence, and to improve activity tolerance. Physical Therapy Plan Frequency and Duration Frequency of Treatment 2x/Week Duration of treatment (weeks) 12 Plan of Care Start Date 11/23/24 Plan of Care End Date 02/16/25 Therapeutic Interventions Therapeutic Interventions Balance Training,Gait Training ,Home Exercise Program,Joint Mobilizations,Manual Therapy, Neuromuscular Re-education, Orthotic/Prosthetic Management ,Patient/Caregiver Education, Self-Care/Home Management, Sensory Integration,Soft Tissue Mobilization,Taping, Therapeutic Activities, Therapeutic Exercises Modalities Cold Pack/Ice Massage,Electric Stimulation,Hot Packs, Ultrasound Next Visit Focus/Plan Next Note Type Treatment Note Next Visit Plan Review HEP. Measure circumference Promote knee ext ROM. Add knee flex: heel slides, knee flex in sitting. STS training. Swelling management Manual therapy
--- NOTE | 2024-11-23 16:00 | PT.OIE ---
Current Diagnoses Unilateral primary osteoarthritis, left knee (11/23/24) Stiffness of left knee, not elsewhere classified (11/23/24) Other lack of coordination (11/23/24) Weakness (11/23/24) Past Medical History (Last Reviewed 11/20/24 @ 12:45 by Uzma Ruiz PA-C) A-fib Abdominal aortic aneurysm (AAA) (06/24/15) Androgen deprivation therapy Arthritis Asymptomatic microscopic hematuria Benign essential HTN (09/22/11) Bilateral cataracts BPH w urinary obs/LUTS Coronary artery disease involving [place] coronary artery of [place] heart without angina pectoris (02/15/17) Current use of jail anticoagulation 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) (07/19/12) Facet arthropathy, lumbar History of COVID-19 (2023) History of endovascular stent graft for abdominal aortic aneurysm (AAA) (09/21/17) History of myocardial infarction History of TIAs HTN (hypertension) Hyperlipidemia, mixed (09/22/11) Left knee DJD Lumbar stenosis with neurogenic claudication Mild neurocognitive disorder Overactive bladder PAD (peripheral artery disease) Paroxysmal atrial fibrillation (~04/2023) Peripheral edema 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) Prostate cancer Skin cancer Spinal stenosis Spondylolisthesis at L4-L5 level Status post repair of abdominal aortic aneurysm (AAA) using straight graft (09/21/17) Urinary Incontinence Past Surgical History (Last Reviewed 11/20/24 @ 12:45 by Uzma Ruiz PA-C) H/O endovascular stent graft for abdominal aortic aneurysm (~06/2019) History of appendectomy History of coronary artery bypass graft x 3 (~12/2009) History of ear surgery History of knee replacement procedure of right knee History of surgical procedure (03/06/14) History of surgical procedure (10/07/15) History of surgical procedure (10/14/15) History of surgical procedure (07/30/17) Hx laparoscopic cholecystectomy Hx of bilateral cataract extraction Visit Care Team Role Provider Type Tyshawn Abdullahi DO Referring Provider Physician Specialty: Interventional Radiology Physiatry Pain Management Address: [address] [place] [address], [address] Email: [email or web address] Mayorga MD Family Provider Physician Primary Care Provider Specialty: Internal Medicine Address: [address] [place] [address], [address], [place], [address] Email: [email or web address] Chhaya Conteh MD Attending Provider Physician Specialty: Orthopedics Orthopedic Surgery Address: [address] [place] [address], [place], [address] Email: [email or web address] Initial Evaluation PT-OP-A Visit Information Start: 11/23/24 08:05 Freq: Status: Active Protocol: Document 11/23/24 14:31 NM (Rec: 11/23/24 15:59 NM [id number]) Out-Patient Physical Therapy Visit Information Visit Information Visit Type Initial Evaluation Visit Note KX after 19 visits Visit Start Time 14:33 Visit Stop Time 15:15 Visit Number 1 Evaluation Information Evaluation Date 11/23/24 Precautions Precautions L TKA 11/15/24; WBAT w/ FWW PT-OP-B Current Condition Start: 11/23/24 08:05 Freq: Status: Active Protocol: Document 11/23/24 14:31 NM (Rec: 11/23/24 15:59 NM [id number]) Current Condition History of Current Condition Onset Date DOS 11/15/24 Current Complaints pain, swelling, weakness, poor mobility, balance History of Current Condition Pt presents following L TKA on 11/15/24. Surgeon Dr. Conteh. Pt spent 2 days in hospital post surgery due to high heart rate, low blood pressure. Has since resolved. Pt also recently when to ED due to constipation following surgery . No dizziness, lightheadedness. present at evaluation and assisting with providing hx. Pt presents in manual wheelchair due to poor activity tolerance following several appt today, brought FWW. 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 Has been using FWW for mobility since surgery. Pt has 2 steps to enter home, L hand rail; stairs in home but does not use. Lives with . Bedroom is downstairs. Has 2 week follow up next week. No falls, no knee buckling since surgery. Has been performing HEP provided by hospital. Sleeping a temporary bed or recliner at home, has had leg propped up with knee bent. Has been icing several times ea day. is concerned about pt getting up at night alone to use bathroom as concerned about falls due to pain. Has been having adult kids help with nighttime care. Has not been wearing compression socks or hose; unsure if supposed to wear compression. Prior Treatments and Tests Previous PT prior to surgery Treatment Goals Patient/Caregiver Goals walks with family, get out in the shop, lawnmower PT-OP-C Subjective Start: 11/23/24 08:05 Freq: Status: Active Protocol: Document 11/23/24 14:31 NM (Rec: 11/23/24 15:59 NM [id number]) OP-PT Subjective Patient Comments Patient Comments Pt consents to participate in PT evaluation Patient Questionnaires Lower Extremity Functional Scale LEFS Score 80 OP-PT Pain Assessment Location left knee Pain Location Details incision, across patella Intensity 7 Scale Used Numeric (0 - 10) Description Aching,Dull Description- Other worst: 7 Pain Aggravating Factors Position,Changing Position,ADL 's,Activity,Standing,Sitting, Walking,Stair Climbing,Bending Other Pain Aggravating Factors sleeping Pain Alleviating Factors Cold,Medication Comments Pain Comments Tylenol as needed, oxycodone PT-OP-F Manual Assessment Start: 11/23/24 08:05 Freq: Status: Active Protocol: Document 11/23/24 14:31 NM (Rec: 11/23/24 15:59 NM [id number]) Manual Assessments Soft Tissue Assessment Soft Tissue Mobility Assessment Tightness and tenderness of L calf, hamstring, and hip flexors Joint Mobility Assessment Joint Mobility Assessment Decreased L knee PROM and AROM secondary to pain, swelling, and weakness. Limited active ankle mobility and hip mobility due to pain PT-OP-G Mobility & Gait Start: 11/23/24 08:05 Freq: Status: Active Protocol: Document 11/23/24 14:31 NM (Rec: 11/23/24 15:59 NM [id number]) OP Mobility Evaluation Bed Mobility Rolling Able to roll IND Supine to and from Sit Needs min A to lift LLE onto table but able to initiate 75% of motion Close SBA to assist with lowering LLE from table due to pain Transfers Sit to Stand CGA; Requires BUE assist to stand to FWW, 1 hand assist to sit. Maintains BLE equidistant, needs cueing for eccentric control OP Gait Assessment Gait Gait Assistance Required: Contact Guard Assist Distance (Feet) 131 Assistive Devices Assistive Device Gait Belt,Front Wheeled Walker Gait Deviations General Gait Pattern Antalgic,Decreased Feet Clearance Factors Limiting Gait Function Factors Limiting Gait Function Decreased Activity Tolerance, Decreased Strength,Limited Range of Motion,Pain PT-OP-J Posture/Palpation/Skin Start: 11/23/24 08:05 Freq: Status: Active Protocol: Document 11/23/24 14:31 NM (Rec: 11/23/24 15:59 NM [id number]) Palpation Assessment Location L knee Palpation Findings Edema,Tenderness Palpation Details Swelling present around knee, calf and thigh; will measure next session Tenderness in quad, hamstring Skin Assessment Incisional Assessment Incision Appearance/Comments Incision covered by intact bandage. No bleeding or drainage evident through bandage Other Assessments Skin Assessment Comments Swelling in LLE compared to RLE but no signs or symptoms of infection or DVT PT-OP-K Range of Motion Start: 11/23/24 08:05 Freq: Status: Active Protocol: Document 11/23/24 14:31 NM (Rec: 11/23/24 15:59 NM [id number]) Knee Goniometric Range of Motion Knee Right Flexion Active (degrees) 124 Extension Active (degrees) 0 Left Flexion Active (degrees) 107 Extension Active (degrees) 10 Comments limited by pain PT-OP-M Strength Start: 11/23/24 08:05 Freq: Status: Active Protocol: Document 11/23/24 14:31 NM (Rec: 11/23/24 15:59 NM [id number]) Hip Strength Hip Manual Muscle Testing Right Flexion (L2) 4 Good Extension (S1) 4 Good Abduction 4 Good Adduction 4 Good External Rotation 4 Good Internal Rotation 4 Good Left Flexion (L2) 3+ Fair+ Extension (S1) 3+ Fair+ Abduction 3+ Fair+ Adduction 3+ Fair+ External Rotation 3 Fair Internal Rotation 3 Fair Comments limited by pain Knee Strength Knee Manual Muscle Testing Right Flexion (S2) 4 Good Extension (L3) 4 Good Left Flexion (S2) 3- Fair- Extension (L3) 3- Fair- Comments limited by pain; did not assess with resistance to protect surgical repair Ankle/Foot Strength Ankle and Foot Manual Muscle Testing Right Dorsiflexion (L4) 4 Good Plantarflexion (S1) 4 Good Left Dorsiflexion (L4) 4 Good Plantarflexion (S1) 4 Good PT-OP-Q Treatments Start: 11/23/24 08:05 Freq: Status: Active Protocol: Document 11/23/24 14:31 NM (Rec: 11/23/24 15:59 NM [id number]) Therapeutic Exercises Supine Exercises knee extension stretch Supine Exercise Name HEP -passive Side left Equipment Used pillow under calf/ankle Reps/Minutes 2 min Comments educated to perforom multiple times ea day, work up tolerance quad sets Supine Exercise Name HEP Side left Equipment Used towel roll under knee Reps/Minutes 15x2 Comments improved quad contraction with reps ankle pumps Supine Exercise Name HEP Side left Reps/Minutes 30 Comments educated to perform ea hour at home, incl. w/ cryotherapy Sitting Exercises knee extension Sitting Exercise Name quad set while passively stretching on stool Side left Equipment Used heel elevated Reps/Minutes 60 Comments cued for set up; monitored for pain Self-Care/Home Management Treatment Education Patient Education Home Exercise Program,Joint Protection,Pain Management, Safety Caregiver Education 5 min- Education provided to on positioning of LLE during cryotherapy with pillows under calf/ankle and knee for elevation; strong education to avoid positions where knee remains flexed for prolonged periods (e.g. sustained sitting or sleeping) . Education provided to on sleeping positions with pillow under calf/ankle but not knee. Recommended that walkways be lit and clear, no animals /pets present at night , still close by for bathroom breaks if pain continues to be high. Other Education 5 min- Education on use of compression garments for swelling management as long as not contraindicated for pt by crate opener or surgeon. Recommended garments from foot to thigh, not too intense of compression. Educated that pt needs to wear shoes or non- slip socks at all times. Recommended that pt ambulate at least every 30 min to 1 hour for a couple minutes to avoid remaining in sustained positions. Avoid hip ER positioning for long periods PT-OP-T Assessment and Plan Start: 11/23/24 08:05 Freq: Status: Active Protocol: Document 11/23/24 14:31 NM (Rec: 11/23/24 15:59 NM [id number]) Physical Therapy Assessment Rehab Potential Rehabilitation Potential Good Evaluation Complexity Number of Personal Factors/Comorbidities 3 or More Number of Body Systems Impaired 4 or More Clinical Presentation at Evaluation Stable Impairments Impairments Activity Tolerance,Balance, Edema,Functional Activities, Functional Mobility,Gait, Integument,Pain,Posture,ROM, Sensation,Soft Tissue Mobility ,Strength,Transfers Other Concerns Fall Risk high Age Related Concerns PMH: watchman procedure, hx stroke/TIA, arthritis, back pain, hearing problems, vision problems Goals Four Impairment use of FWW; 2 MWT distance 131 ft with FWW Short Term Goal (STG) Pt will normalize gait mechanics using LRAD if appropriate with L knee pain < 3/10 in order to demonstrate improved tolerance for gait and decreased fall risk STG Duration 6 weeks Wallpaper Printer Goal (LTG) Pt will be able to complete 6 MWT >1100 ft (pre-op 6 MWT distance) in order to demonstrate improved tolerance for family ambulation outings LTG Duration 12 weeks Three Impairment needs assist with transfers Short Term Goal (STG) Pt will be IND with bed transfers in order to demonstrate increased mobility STG Duration 5 weeks Wallpaper Printer Goal (LTG) Pt will be able be able to complate 30 sec sit to stand test within age-related norm in order to demonstrate improved strength and endurance needed for cars and toilet/chair transfers LTG Duration 12 weeks Two Impairment L knee strength impaired Short Term Goal (STG) Pt will increase L knee flex/ ext and global L hip strength to at least 4-/5 in order to demonstrate improved strength for gait, transfers, and stairs STG Duration 8 weeks [facility] Goal (LTG) Pt will increase L knee flex/ ext and global L hip strength to at least 4/5 in order to demonstrate improved strength for gait, transfers, and stairs LTG Duration 12 weeks One Impairment L knee ROM lacking 10 deg ext to 107 deg flex Short Term Goal (STG) Pt will improve L knee ext to least lacking 5 deg and L knee flexion to at least 115 deg in order to improve ROM for gait and transfers STG Duration 6 weeks [facility] Goal (LTG) Pt will improve L knee ext to lacking 2 deg or less and L knee flexion AROM to at least 120 deg in order to improve ROM for gait and transfers LTG Duration 12 weeks Assessment Summary Assessment Pt is an 89 y.o. presenting s/ p L TKA on 11/15/24. His primary concern following surgery is pain management. Pt spent several days in hospital following complications due to his heart rate and blood pressure. Pt currently has impairments in L knee ROM, strength, gait, balance, swelling management, activity tolerance, transfers, and pain management. His gait is antalgic with a FWW. He can only complete a 2 MWT due to pain. Prior to surgery, pt used an spc frequently for balance. Pt needs assistance for bed-chair transfers and CGA for sit to stand transfers due to poor control. Swelling is present throughout LLE. Incision is covered by a bandage, which is intact without signs of infection. Pt has been compliant with post- op HEP. PT educated pt and his on exam findings and plan of care. Initiated post- op HEP and provided education regarding positioning, sleeping, and swelling management. Pt would benefit from skilled PT for progressive ROM and strengthening in order to improve symptom management, functional mobility with gait and transfers, indepedence, and to improve activity tolerance. Physical Therapy Plan Frequency and Duration Frequency of Treatment 2x/Week Duration of treatment (weeks) 12 Plan of Care Start Date 11/23/24 Plan of Care End Date 02/16/25 Therapeutic Interventions Therapeutic Interventions Balance Training,Gait Training ,Home Exercise Program,Joint Mobilizations,Manual Therapy, Neuromuscular Re-education, Orthotic/Prosthetic Management ,Patient/Caregiver Education, Self-Care/Home Management, Sensory Integration,Soft Tissue Mobilization,Taping, Therapeutic Activities, Therapeutic Exercises Modalities Cold Pack/Ice Massage,Electric Stimulation,Hot Packs, Ultrasound Next Visit Focus/Plan Next Note Type Treatment Note Next Visit Plan Review HEP. Measure circumference Promote knee ext ROM. Add knee flex: heel slides, knee flex in sitting. STS training. Swelling management Manual therapy
--- NOTE | 2024-11-28 08:29 | PT-OP ANOTE ---
Addendum entered and electronically signed by Nakita Carney, PT 11/30/24 07:47: Pt arrived late for appt on same day, thinking appt was at 0830 instead of 0815; pt seen for shorter time. See treatment note for 11/28/24 Original Note: No show- PT called and left message on home phone for pt informing him of missed appt today at 0815. Reminded pt of next appt on 11/30 at 1430. Reminded pt of no-show policy and informed pt that he will be discharged from PT if he no shows again. Recommended pt that he can call in to see if other appt become available, which may remove no show violation
--- NOTE | 2024-11-28 10:43 | PT.OTN ---
Current Diagnoses Unilateral primary osteoarthritis, left knee (11/28/24) Stiffness of left knee, not elsewhere classified (11/28/24) Other lack of coordination (11/28/24) Weakness (11/28/24) Physical Therapy Treatment Note PT-OP-A Visit Information Start: 11/23/24 08:05 Freq: Status: Active Protocol: Document 11/28/24 08:32 NM (Rec: 11/28/24 09:02 NM [id number]) Out-Patient Physical Therapy Visit Information Visit Information Visit Type Treatment Note Visit Start Time 09:32 Visit Stop Time 09:00 Visit Number 2 Evaluation Information Evaluation Date 11/23/24 Precautions Precautions L TKA 11/15/24; WBAT w/ FWW PT-OP-B Current Condition Start: 11/23/24 08:05 Freq: Status: Active Protocol: Document 11/23/24 14:31 NM (Rec: 11/23/24 15:59 NM [id number]) Current Condition History of Current Condition Onset Date DOS 11/15/24 Current Complaints pain, swelling, weakness, poor mobility, balance History of Current Condition Pt presents following L TKA on 11/15/24. Surgeon Dr. Conteh. Pt spent 2 days in hospital post surgery due to high heart rate, low blood pressure. Has since resolved. Pt also recently when to ED due to constipation following surgery . No dizziness, lightheadedness. present at evaluation and assisting with providing hx. Pt presents in manual wheelchair due to poor activity tolerance following several appt today, brought FWW. 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 Has been using FWW for mobility since surgery. Pt has 2 steps to enter home, L hand rail; stairs in home but does not use. Lives with . Bedroom is downstairs. Has 2 week follow up next week. No falls, no knee buckling since surgery. Has been performing HEP provided by hospital. Sleeping a temporary bed or recliner at home, has had leg propped up with knee bent. Has been icing several times ea day. is concerned about pt getting up at night alone to use bathroom as concerned about falls due to pain. Has been having adult kids help with nighttime care. Has not been wearing compression socks or hose; unsure if supposed to wear compression. Prior Treatments and Tests Previous PT prior to surgery Treatment Goals Patient/Caregiver Goals walks with family, get out in the shop, lawnmower PT-OP-C Subjective Start: 11/23/24 08:05 Freq: Status: Active Protocol: Document 11/28/24 08:32 NM (Rec: 11/28/24 09:02 NM [id number]) OP-PT Subjective Patient Comments Patient Comments Pt has bandage off from yesterday. He wants to show PT a line on his skin from wrap on his leg, thinks too tight, scar intact. No bleeding. Swelling present. Has not been icing. No compression. Reports exercises not helping. PT-OP-F Manual Assessment Start: 11/23/24 08:05 Freq: Status: Active Protocol: Document 11/23/24 14:31 NM (Rec: 11/23/24 15:59 NM [id number]) Manual Assessments Soft Tissue Assessment Soft Tissue Mobility Assessment Tightness and tenderness of L calf, hamstring, and hip flexors Joint Mobility Assessment Joint Mobility Assessment Decreased L knee PROM and AROM secondary to pain, swelling, and weakness. Limited active ankle mobility and hip mobility due to pain PT-OP-G Mobility & Gait Start: 11/23/24 08:05 Freq: Status: Active Protocol: Document 11/23/24 14:31 NM (Rec: 11/23/24 15:59 NM [id number]) OP Mobility Evaluation Bed Mobility Rolling Able to roll IND Supine to and from Sit Needs min A to lift LLE onto table but able to initiate 75% of motion Close SBA to assist with lowering LLE from table due to pain Transfers Sit to Stand CGA; Requires BUE assist to stand to FWW, 1 hand assist to sit. Maintains BLE equidistant, needs cueing for eccentric control OP Gait Assessment Gait Gait Assistance Required: Contact Guard Assist Distance (Feet) 131 Assistive Devices Assistive Device Gait Belt,Front Wheeled Walker Gait Deviations General Gait Pattern Antalgic,Decreased Feet Clearance Factors Limiting Gait Function Factors Limiting Gait Function Decreased Activity Tolerance, Decreased Strength,Limited Range of Motion,Pain PT-OP-J Posture/Palpation/Skin Start: 11/23/24 08:05 Freq: Status: Active Protocol: Document 11/23/24 14:31 NM (Rec: 11/23/24 15:59 NM [id number]) Palpation Assessment Location L knee Palpation Findings Edema,Tenderness Palpation Details Swelling present around knee, calf and thigh; will measure next session Tenderness in quad, hamstring Skin Assessment Incisional Assessment Incision Appearance/Comments Incision covered by intact bandage. No bleeding or drainage evident through bandage Other Assessments Skin Assessment Comments Swelling in LLE compared to RLE but no signs or symptoms of infection or DVT PT-OP-K Range of Motion Start: 11/23/24 08:05 Freq: Status: Active Protocol: Document 11/23/24 14:31 NM (Rec: 11/23/24 15:59 NM [id number]) Knee Goniometric Range of Motion Knee Right Flexion Active (degrees) 124 Extension Active (degrees) 0 Left Flexion Active (degrees) 107 Extension Active (degrees) 10 Comments limited by pain PT-OP-M Strength Start: 11/23/24 08:05 Freq: Status: Active Protocol: Document 11/23/24 14:31 NM (Rec: 11/23/24 15:59 NM [id number]) Hip Strength Hip Manual Muscle Testing Right Flexion (L2) 4 Good Extension (S1) 4 Good Abduction 4 Good Adduction 4 Good External Rotation 4 Good Internal Rotation 4 Good Left Flexion (L2) 3+ Fair+ Extension (S1) 3+ Fair+ Abduction 3+ Fair+ Adduction 3+ Fair+ External Rotation 3 Fair Internal Rotation 3 Fair Comments limited by pain Knee Strength Knee Manual Muscle Testing Right Flexion (S2) 4 Good Extension (L3) 4 Good Left Flexion (S2) 3- Fair- Extension (L3) 3- Fair- Comments limited by pain; did not assess with resistance to protect surgical repair Ankle/Foot Strength Ankle and Foot Manual Muscle Testing Right Dorsiflexion (L4) 4 Good Plantarflexion (S1) 4 Good Left Dorsiflexion (L4) 4 Good Plantarflexion (S1) 4 Good PT-OP-Q Treatments Start: 11/23/24 08:05 Freq: Status: Active Protocol: Document 11/28/24 08:32 NM (Rec: 11/28/24 09:02 NM [id number]) Therapeutic Exercises Supine Exercises SAQ Supine Exercise Name Trialed in PT Side left Equipment Used foam roller under knee Reps/Minutes 10 Comments partial ROM quad sets Supine Exercise Name HEP review Side left Equipment Used towel roll under knee Reps/Minutes 20x3 Comments improved quad contraction w/ reps Sitting Exercises quad set Sitting Exercise Name TKE into ball Side left Equipment Used blue turkish ball Reps/Minutes 15x2 Comments cued quad contract; improved w / reps Manual Therapy Treatment Consent Patient gave verbal consent for manual Yes treatment Soft Tissue Mobilization L knee Body Location hamstring, quad, swelling management Mobilization Type Rolling,Other Intensity/Depth Superficial Body Position hookying Comments Bolster under knee. Lotion around incision, avoid healing incision ~2 on all sides. Performed swelling management distal > proximal. Trigger points quad, hamstring Self-Care/Home Management Treatment Education Patient Education Joint Protection,Posture Other Education Education provided to pt on scar management: no lotion or antyhing on incision. Education to avoid putting lotion near incision. Allow to heal, do not pick scabs or glue. Education again on use of compression and ice for swelling management, education and rationale for healing PT-OP-T Assessment and Plan Start: 11/23/24 08:05 Freq: Status: Active Protocol: Document 11/28/24 08:32 NM (Rec: 11/28/24 09:02 NM [id number]) Physical Therapy Assessment Goals Four Impairment use of FWW; 2 MWT distance 131 ft with FWW Short Term Goal (STG) Pt will normalize gait mechanics using LRAD if appropriate with L knee pain < 3/10 in order to demonstrate improved tolerance for gait and decreased fall risk STG Duration 6 weeks Fci Goal (LTG) Pt will be able to complete 6 MWT >1100 ft (pre-op 6 MWT distance) in order to demonstrate improved tolerance for family ambulation outings LTG Duration 12 weeks Three Impairment needs assist with transfers Short Term Goal (STG) Pt will be IND with bed transfers in order to demonstrate increased mobility STG Duration 5 weeks [facility]ci Goal (LTG) Pt will be able be able to complate 30 sec sit to stand test within age-related norm in order to demonstrate improved strength and endurance needed for cars and toilet/chair transfers LTG Duration 12 weeks Two Impairment L knee strength impaired Short Term Goal (STG) Pt will increase L knee flex/ ext and global L hip strength to at least 4-/5 in order to demonstrate improved strength for gait, transfers, and stairs STG Duration 8 weeks [facility]ci Goal (LTG) Pt will increase L knee flex/ ext and global L hip strength to at least 4/5 in order to demonstrate improved strength for gait, transfers, and stairs LTG Duration 12 weeks One Impairment L knee ROM lacking 10 deg ext to 107 deg flex Short Term Goal (STG) Pt will improve L knee ext to least lacking 5 deg and L knee flexion to at least 115 deg in order to improve ROM for gait and transfers STG Duration 6 weeks [facility]ci Goal (LTG) Pt will improve L knee ext to lacking 2 deg or less and L knee flexion AROM to at least 120 deg in order to improve ROM for gait and transfers LTG Duration 12 weeks Assessment Summary Assessment Pt currently 2 weeks post op. He is compliant with HEP, using FWW still for mobility. Pt late to session so decreased time. He lacking 7 deg ext. Scar intact. Initiated manual treatment to decrease swelling and soft tissue restrictions. Educated on compression, elevation for swelling management, lotion use and to avoid scar. Pt demos improved quad contraction with exercises but continues to lack end range extension and limited by pain. Needs cueing for correct execution and to maintain neutral foot position. Pt would continue to benefit from skilled PT for progressive L knee ROM and strength in order to decrease swelling, improve mobility, and return to PLOF. Physical Therapy Plan Frequency and Duration Frequency of Treatment 2x/Week Duration of treatment (weeks) 12 Plan of Care Start Date 11/23/24 Plan of Care End Date 02/16/25 Therapeutic Interventions Therapeutic Interventions Balance Training,Gait Training ,Home Exercise Program,Joint Mobilizations,Manual Therapy, Neuromuscular Re-education, Orthotic/Prosthetic Management ,Patient/Caregiver Education, Self-Care/Home Management, Sensory Integration,Soft Tissue Mobilization,Taping, Therapeutic Activities, Therapeutic Exercises Modalities Cold Pack/Ice Massage,Electric Stimulation,Hot Packs, Ultrasound Next Visit Focus/Plan Next Note Type Treatment Note Next Visit Plan Review HEP. Promote knee ext ROM, quad contraction. See diann for SAQ, progress to SLR when able, TKE in standing. Trial sci fit. Add knee flex: heel slides, knee flex in sitting. STS training. Swelling management Manual therapy
--- NOTE | 2024-11-30 16:36 | PT.OTN ---
Current Diagnoses Unilateral primary osteoarthritis, left knee (11/30/24) Stiffness of left knee, not elsewhere classified (11/30/24) Other lack of coordination (11/30/24) Weakness (11/30/24) Physical Therapy Treatment Note PT-OP-A Visit Information Start: 11/23/24 08:05 Freq: Status: Active Protocol: Document 11/30/24 14:19 AB (Rec: 11/30/24 16:36 AB [id number]) Out-Patient Physical Therapy Visit Information Visit Information Visit Type Treatment Note Visit Start Time 14:34 Visit Stop Time 15:18 Visit Number 3 Number of CARDIOLOGY PHYSICIAN ASSISTANT Visits 1 Evaluation Information Evaluation Date 11/23/24 Precautions Precautions L TKA 11/15/24; WBAT w/ FWW PT-OP-B Current Condition Start: 11/23/24 08:05 Freq: Status: Active Protocol: Document 11/23/24 14:31 NM (Rec: 11/23/24 15:59 NM [id number]) Current Condition History of Current Condition Onset Date DOS 11/15/24 Current Complaints pain, swelling, weakness, poor mobility, balance History of Current Condition Pt presents following L TKA on 11/15/24. Surgeon Dr. Conteh. Pt spent 2 days in hospital post surgery due to high heart rate, low blood pressure. Has since resolved. Pt also recently when to ED due to constipation following surgery . No dizziness, lightheadedness. present at evaluation and assisting with providing hx. Pt presents in manual wheelchair due to poor activity tolerance following several appt today, brought FWW. 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 Has been using FWW for mobility since surgery. Pt has 2 steps to enter home, L hand rail; stairs in home but does not use. Lives with . Bedroom is downstairs. Has 2 week follow up next week. No falls, no knee buckling since surgery. Has been performing HEP provided by hospital. Sleeping a temporary bed or recliner at home, has had leg propped up with knee bent. Has been icing several times ea day. is concerned about pt getting up at night alone to use bathroom as concerned about falls due to pain. Has been having adult kids help with nighttime care. Has not been wearing compression socks or hose; unsure if supposed to wear compression. Prior Treatments and Tests Previous PT prior to surgery Treatment Goals Patient/Caregiver Goals walks with family, get out in the shop, lawnmower PT-OP-C Subjective Start: 11/23/24 08:05 Freq: Status: Active Protocol: Document 11/30/24 14:19 AB (Rec: 11/30/24 16:36 AB [id number]) OP-PT Subjective Patient Comments Patient Comments Patient reports he is better than last time he was here, reports patient is performing HEp 3-4 X a day. Patient rates left knee pain . Patient reports the knee swelled back up post taking a shower. Lacking6 deg extension to 102 deg flexion left knee AROM start of session. PT-OP-F Manual Assessment Start: 11/23/24 08:05 Freq: Status: Active Protocol: Document 11/23/24 14:31 NM (Rec: 11/23/24 15:59 NM [id number]) Manual Assessments Soft Tissue Assessment Soft Tissue Mobility Assessment Tightness and tenderness of L calf, hamstring, and hip flexors Joint Mobility Assessment Joint Mobility Assessment Decreased L knee PROM and AROM secondary to pain, swelling, and weakness. Limited active ankle mobility and hip mobility due to pain PT-OP-G Mobility & Gait Start: 11/23/24 08:05 Freq: Status: Active Protocol: Document 11/23/24 14:31 NM (Rec: 11/23/24 15:59 NM [id number]) OP Mobility Evaluation Bed Mobility Rolling Able to roll IND Supine to and from Sit Needs min A to lift LLE onto table but able to initiate 75% of motion Close SBA to assist with lowering LLE from table due to pain Transfers Sit to Stand CGA; Requires BUE assist to stand to FWW, 1 hand assist to sit. Maintains BLE equidistant, needs cueing for eccentric control OP Gait Assessment Gait Gait Assistance Required: Contact Guard Assist Distance (Feet) 131 Assistive Devices Assistive Device Gait Belt,Front Wheeled Walker Gait Deviations General Gait Pattern Antalgic,Decreased Feet Clearance Factors Limiting Gait Function Factors Limiting Gait Function Decreased Activity Tolerance, Decreased Strength,Limited Range of Motion,Pain PT-OP-J Posture/Palpation/Skin Start: 11/23/24 08:05 Freq: Status: Active Protocol: Document 11/23/24 14:31 NM (Rec: 11/23/24 15:59 NM [id number]) Palpation Assessment Location L knee Palpation Findings Edema,Tenderness Palpation Details Swelling present around knee, calf and thigh; will measure next session Tenderness in quad, hamstring Skin Assessment Incisional Assessment Incision Appearance/Comments Incision covered by intact bandage. No bleeding or drainage evident through bandage Other Assessments Skin Assessment Comments Swelling in LLE compared to RLE but no signs or symptoms of infection or DVT PT-OP-K Range of Motion Start: 11/23/24 08:05 Freq: Status: Active Protocol: Document 11/23/24 14:31 NM (Rec: 11/23/24 15:59 NM [id number]) Knee Goniometric Range of Motion Knee Right Flexion Active (degrees) 124 Extension Active (degrees) 0 Left Flexion Active (degrees) 107 Extension Active (degrees) 10 Comments limited by pain PT-OP-M Strength Start: 11/23/24 08:05 Freq: Status: Active Protocol: Document 11/23/24 14:31 NM (Rec: 11/23/24 15:59 NM [id number]) Hip Strength Hip Manual Muscle Testing Right Flexion (L2) 4 Good Extension (S1) 4 Good Abduction 4 Good Adduction 4 Good External Rotation 4 Good Internal Rotation 4 Good Left Flexion (L2) 3+ Fair+ Extension (S1) 3+ Fair+ Abduction 3+ Fair+ Adduction 3+ Fair+ External Rotation 3 Fair Internal Rotation 3 Fair Comments limited by pain Knee Strength Knee Manual Muscle Testing Right Flexion (S2) 4 Good Extension (L3) 4 Good Left Flexion (S2) 3- Fair- Extension (L3) 3- Fair- Comments limited by pain; did not assess with resistance to protect surgical repair Ankle/Foot Strength Ankle and Foot Manual Muscle Testing Right Dorsiflexion (L4) 4 Good Plantarflexion (S1) 4 Good Left Dorsiflexion (L4) 4 Good Plantarflexion (S1) 4 Good PT-OP-Q Treatments Start: 11/23/24 08:05 Freq: Status: Active Protocol: Document 11/30/24 14:19 AB (Rec: 11/30/24 16:36 AB [id number]) Therapeutic Exercises Supine Exercises SLR Supine Exercise Name HEP Side left Reps/Minutes X10 Comments verbal cues knee straight with lift and lower heel slide Supine Exercise Name 1. on slovak ball 2. AROM knee flexion Reps/Minutes 1. 3 min 2. X 10 stretches Supine Exercise Name 1. hs 2. gravity assisted flexion Side left Reps/Minutes 60 sec hs 18 gravity assisted flex quad sets Supine Exercise Name HEP review Side left Equipment Used towel roll under knee Reps/Minutes 20x3 Comments good quad contraction Standing Exercises terminal knee extension Side left Resistance level 2 band Reps/Minutes X10 Comments verbal cues Therapeutic Activity Therapeutic Activity Donning compression sock Comments Unable to tyrone compression sock, advised to measure and by different socks.( Likely will be uable reports she has hand weakness. ) Manual Therapy Treatment Consent Patient gave verbal consent for manual Yes treatment Soft Tissue Mobilization L knee Body Location hamstring, quad, swelling management Mobilization Type Myofascial Release,Rolling, Other Intensity/Depth Superficial Body Position hookying Comments and moderate PT-OP-T Assessment and Plan Start: 11/23/24 08:05 Freq: Status: Active Protocol: Document 11/30/24 14:19 AB (Rec: 11/30/24 16:36 AB [id number]) Physical Therapy Assessment Goals Four Impairment use of FWW; 2 MWT distance 131 ft with FWW Short Term Goal (STG) Pt will normalize gait mechanics using LRAD if appropriate with L knee pain < 3/10 in order to demonstrate improved tolerance for gait and decreased fall risk STG Duration 6 weeks Cosmetologist Apprentice Goal (LTG) Pt will be able to complete 6 MWT >1100 ft (pre-op 6 MWT distance) in order to demonstrate improved tolerance for family ambulation outings LTG Duration 12 weeks Three Impairment needs assist with transfers Short Term Goal (STG) Pt will be IND with bed transfers in order to demonstrate increased mobility STG Duration 5 weeks Snf Goal (LTG) Pt will be able be able to complate 30 sec sit to stand test within age-related norm in order to demonstrate improved strength and endurance needed for cars and toilet/chair transfers LTG Duration 12 weeks Two Impairment L knee strength impaired Short Term Goal (STG) Pt will increase L knee flex/ ext and global L hip strength to at least 4-/5 in order to demonstrate improved strength for gait, transfers, and stairs STG Duration 8 weeks Snf Goal (LTG) Pt will increase L knee flex/ ext and global L hip strength to at least 4/5 in order to demonstrate improved strength for gait, transfers, and stairs LTG Duration 12 weeks One Impairment L knee ROM lacking 10 deg ext to 107 deg flex Short Term Goal (STG) Pt will improve L knee ext to least lacking 5 deg and L knee flexion to at least 115 deg in order to improve ROM for gait and transfers STG Duration 6 weeks Cosmetologist Apprentice Goal (LTG) Pt will improve L knee ext to lacking 2 deg or less and L knee flexion AROM to at least 120 deg in order to improve ROM for gait and transfers LTG Duration 12 weeks Assessment Summary Assessment Lacking 5 deg extension to 113 deg flexion AROM left knee post manual and exercise. Physical Therapy Plan Frequency and Duration Frequency of Treatment 2x/Week Duration of treatment (weeks) 12 Plan of Care Start Date 11/23/24 Plan of Care End Date 02/16/25 Next Visit Focus/Plan Next Note Type Treatment Note Next Visit Plan Review HEP. Promote knee ext ROM, quad contraction. See diann for SAQ, progress to SLR when able, TKE in standing. Trial sci fit. Add knee flex: heel slides, knee flex in sitting. STS training. Swelling management Manual therapy
--- NOTE | 2024-12-01 16:38 | PT-OP ANOTE ---
PT called and spoke to both pt and regarding message about pt bending knee when sleeping. Recommended that pt's help pt readjust if awake or if getting upt to go to bathroom, and to avoid being in position for sustained time. Educated that pt and use pillow between legs if sleeping on side or have pillows under calves but not knees if sleeping on back
--- NOTE | 2024-12-05 13:49 | PT.OTN ---
Current Diagnoses Unilateral primary osteoarthritis, left knee (12/05/24) Stiffness of left knee, not elsewhere classified (12/05/24) Other lack of coordination (12/05/24) Weakness (12/05/24) Physical Therapy Treatment Note PT-OP-A Visit Information Start: 11/23/24 08:05 Freq: Status: Active Protocol: Document 12/05/24 13:00 NM (Rec: 12/05/24 13:49 NM [id number]) Out-Patient Physical Therapy Visit Information Visit Information Visit Type Treatment Note Visit Start Time 13:02 Visit Stop Time 13:45 Visit Number 4 Evaluation Information Evaluation Date 11/23/24 Precautions Precautions L TKA 11/15/24; WBAT w/ FWW PT-OP-B Current Condition Start: 11/23/24 08:05 Freq: Status: Active Protocol: Document 11/23/24 14:31 NM (Rec: 11/23/24 15:59 NM [id number]) Current Condition History of Current Condition Onset Date DOS 11/15/24 Current Complaints pain, swelling, weakness, poor mobility, balance History of Current Condition Pt presents following L TKA on 11/15/24. Surgeon Dr. Conteh. Pt spent 2 days in hospital post surgery due to high heart rate, low blood pressure. Has since resolved. Pt also recently when to ED due to constipation following surgery . No dizziness, lightheadedness. present at evaluation and assisting with providing hx. Pt presents in manual wheelchair due to poor activity tolerance following several appt today, brought FWW. 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 Has been using FWW for mobility since surgery. Pt has 2 steps to enter home, L hand rail; stairs in home but does not use. Lives with . Bedroom is downstairs. Has 2 week follow up next week. No falls, no knee buckling since surgery. Has been performing HEP provided by hospital. Sleeping a temporary bed or recliner at home, has had leg propped up with knee bent. Has been icing several times ea day. is concerned about pt getting up at night alone to use bathroom as concerned about falls due to pain. Has been having adult kids help with nighttime care. Has not been wearing compression socks or hose; unsure if supposed to wear compression. Prior Treatments and Tests Previous PT prior to surgery Treatment Goals Patient/Caregiver Goals walks with family, get out in the shop, lawnmower PT-OP-C Subjective Start: 11/23/24 08:05 Freq: Status: Active Protocol: Document 12/05/24 13:00 NM (Rec: 12/05/24 13:49 NM [id number]) OP-PT Subjective Patient Comments Patient Comments Pt and present to clinic, using AD. Pt reports difficulty with sleeping. He is compliant with HEP, reports every 3 hours. Taking an extra oxycodone to help with sleep as needed; still taking tyelonol as well. Starting03/17 PT-OP-F Manual Assessment Start: 11/23/24 08:05 Freq: Status: Active Protocol: Document 11/23/24 14:31 NM (Rec: 11/23/24 15:59 NM [id number]) Manual Assessments Soft Tissue Assessment Soft Tissue Mobility Assessment Tightness and tenderness of L calf, hamstring, and hip flexors Joint Mobility Assessment Joint Mobility Assessment Decreased L knee PROM and AROM secondary to pain, swelling, and weakness. Limited active ankle mobility and hip mobility due to pain PT-OP-G Mobility & Gait Start: 11/23/24 08:05 Freq: Status: Active Protocol: Document 11/23/24 14:31 NM (Rec: 11/23/24 15:59 NM [id number]) OP Mobility Evaluation Bed Mobility Rolling Able to roll IND Supine to and from Sit Needs min A to lift LLE onto table but able to initiate 75% of motion Close SBA to assist with lowering LLE from table due to pain Transfers Sit to Stand CGA; Requires BUE assist to stand to FWW, 1 hand assist to sit. Maintains BLE equidistant, needs cueing for eccentric control OP Gait Assessment Gait Gait Assistance Required: Contact Guard Assist Distance (Feet) 131 Assistive Devices Assistive Device Gait Belt,Front Wheeled Walker Gait Deviations General Gait Pattern Antalgic,Decreased Feet Clearance Factors Limiting Gait Function Factors Limiting Gait Function Decreased Activity Tolerance, Decreased Strength,Limited Range of Motion,Pain PT-OP-J Posture/Palpation/Skin Start: 11/23/24 08:05 Freq: Status: Active Protocol: Document 11/23/24 14:31 NM (Rec: 11/23/24 15:59 NM [id number]) Palpation Assessment Location L knee Palpation Findings Edema,Tenderness Palpation Details Swelling present around knee, calf and thigh; will measure next session Tenderness in quad, hamstring Skin Assessment Incisional Assessment Incision Appearance/Comments Incision covered by intact bandage. No bleeding or drainage evident through bandage Other Assessments Skin Assessment Comments Swelling in LLE compared to RLE but no signs or symptoms of infection or DVT PT-OP-K Range of Motion Start: 11/23/24 08:05 Freq: Status: Active Protocol: Document 11/23/24 14:31 NM (Rec: 11/23/24 15:59 NM [id number]) Knee Goniometric Range of Motion Knee Right Flexion Active (degrees) 124 Extension Active (degrees) 0 Left Flexion Active (degrees) 107 Extension Active (degrees) 10 Comments limited by pain PT-OP-M Strength Start: 11/23/24 08:05 Freq: Status: Active Protocol: Document 11/23/24 14:31 NM (Rec: 11/23/24 15:59 NM [id number]) Hip Strength Hip Manual Muscle Testing Right Flexion (L2) 4 Good Extension (S1) 4 Good Abduction 4 Good Adduction 4 Good External Rotation 4 Good Internal Rotation 4 Good Left Flexion (L2) 3+ Fair+ Extension (S1) 3+ Fair+ Abduction 3+ Fair+ Adduction 3+ Fair+ External Rotation 3 Fair Internal Rotation 3 Fair Comments limited by pain Knee Strength Knee Manual Muscle Testing Right Flexion (S2) 4 Good Extension (L3) 4 Good Left Flexion (S2) 3- Fair- Extension (L3) 3- Fair- Comments limited by pain; did not assess with resistance to protect surgical repair Ankle/Foot Strength Ankle and Foot Manual Muscle Testing Right Dorsiflexion (L4) 4 Good Plantarflexion (S1) 4 Good Left Dorsiflexion (L4) 4 Good Plantarflexion (S1) 4 Good PT-OP-Q Treatments Start: 11/23/24 08:05 Freq: Status: Active Protocol: Document 12/05/24 13:00 NM (Rec: 12/05/24 13:49 NM [id number]) Cardio Equipment Recumbent Bicycle Duration (Minutes) 6 Resistance 0 Seat Position 9 Other 50-75% cycles; warm up; limited by knee flex Therapeutic Exercises Supine Exercises SLR Supine Exercise Name HEP review Side left Reps/Minutes X10 Comments verbal cues heel slide Supine Exercise Name 1. on beninese ball 2. AROM knee flexion- HEP Reps/Minutes 1. 1 min, 2. 10 quad sets Supine Exercise Name HEP review Side left Equipment Used towel roll under knee and 2nd set w/ towel under ankle Reps/Minutes 2x10x3 Comments good quad contraction, post manual Standing Exercises squat Standing Exercise Name partial ROM- HEP Side bilateral Equipment Used B hand support; chair behind for target Reps/Minutes 15 Manual Therapy Treatment Consent Patient gave verbal consent for manual Yes treatment Soft Tissue Mobilization L knee Body Location hamstring, quad, swelling management, TFL/flexors, calf Mobilization Type Myofascial Release,Rolling, Other Intensity/Depth Superficial Body Position hookying Comments and moderate Joint Mobilizations L knee Direction PA and AP Grade II Reps/Duration 6x30 ea Comments Performed sitting and supine, w/ towel roll under foot in supine. With tibial distraction and ER/IR. lacking 2 deg ext, 110 deg flex PT-OP-T Assessment and Plan Start: 11/23/24 08:05 Freq: Status: Active Protocol: Document 12/05/24 13:00 NM (Rec: 12/05/24 13:49 NM [id number]) Physical Therapy Assessment Goals Four Impairment use of FWW; 2 MWT distance 131 ft with FWW Short Term Goal (STG) Pt will normalize gait mechanics using LRAD if appropriate with L knee pain < 3/10 in order to demonstrate improved tolerance for gait and decreased fall risk STG Duration 6 weeks Group Home Goal (LTG) Pt will be able to complete 6 MWT >1100 ft (pre-op 6 MWT distance) in order to demonstrate improved tolerance for family ambulation outings LTG Duration 12 weeks Three Impairment needs assist with transfers Short Term Goal (STG) Pt will be IND with bed transfers in order to demonstrate increased mobility STG Duration 5 weeks Window/Distribution Clerk Goal (LTG) Pt will be able be able to complate 30 sec sit to stand test within age-related norm in order to demonstrate improved strength and endurance needed for cars and toilet/chair transfers LTG Duration 12 weeks Two Impairment L knee strength impaired Short Term Goal (STG) Pt will increase L knee flex/ ext and global L hip strength to at least 4-/5 in order to demonstrate improved strength for gait, transfers, and stairs STG Duration 8 weeks Window/Distribution Clerk Goal (LTG) Pt will increase L knee flex/ ext and global L hip strength to at least 4/5 in order to demonstrate improved strength for gait, transfers, and stairs LTG Duration 12 weeks One Impairment L knee ROM lacking 10 deg ext to 107 deg flex Short Term Goal (STG) Pt will improve L knee ext to least lacking 5 deg and L knee flexion to at least 115 deg in order to improve ROM for gait and transfers STG Duration 6 weeks Group Home Goal (LTG) Pt will improve L knee ext to lacking 2 deg or less and L knee flexion AROM to at least 120 deg in order to improve ROM for gait and transfers LTG Duration 12 weeks Assessment Summary Assessment Pt tolerated session fair. Lacking 2 deg L knee ext, 110 deg flex AROM. Increased time spent on correct execution for SLR, promoting quad set and maintaining throughout ROM. Moderate cueing needed for quad activation and to limit ROM for pain management/ control. Initiated knee flexion functionall with partial squat; cueing needed for form. Pt progressing slowly with ROM due to decreased activity tolerance and pain management. He would benefit from skilled PT for progressive L knee ROM and strengthening to improve mobility and to decrease pain. Physical Therapy Plan Frequency and Duration Frequency of Treatment 2x/Week Duration of treatment (weeks) 12 Plan of Care Start Date 11/23/24 Plan of Care End Date 02/16/25 Therapeutic Interventions Therapeutic Interventions Balance Training,Gait Training ,Home Exercise Program,Joint Mobilizations,Manual Therapy, Neuromuscular Re-education, Orthotic/Prosthetic Management ,Patient/Caregiver Education, Self-Care/Home Management, Sensory Integration,Soft Tissue Mobilization,Taping, Therapeutic Activities, Therapeutic Exercises Modalities Cold Pack/Ice Massage,Electric Stimulation,Hot Packs, Ultrasound Next Visit Focus/Plan Next Note Type Treatment Note Next Visit Plan Review HEP. Promote knee ext ROM, quad contraction functionally- TKE (add ot HEP w/ if able), 4 step up. LAQ, review SLR. Recumbent bike. leg press, squats/mini. side steps, hip strength.. Add knee flex: heel slides, knee flex in sitting. STS training. Swelling management Manual therapy
--- NOTE | 2024-12-07 16:20 | PT.OTN ---
Current Diagnoses Unilateral primary osteoarthritis, left knee (12/07/24) Stiffness of left knee, not elsewhere classified (12/07/24) Other lack of coordination (12/07/24) Weakness (12/07/24) Physical Therapy Treatment Note PT-OP-A Visit Information Start: 11/23/24 08:05 Freq: Status: Active Protocol: Document 12/07/24 14:32 AB (Rec: 12/07/24 16:17 AB [id number]) Out-Patient Physical Therapy Visit Information Visit Information Visit Type Treatment Note Visit Start Time 15:20 Visit Stop Time 16:05 Visit Number 5 Number of [employer]ANT TECHNICIAN Visits 1 Evaluation Information Evaluation Date 11/23/24 Precautions Precautions L TKA 11/15/24; WBAT w/ FWW PT-OP-B Current Condition Start: 11/23/24 08:05 Freq: Status: Active Protocol: Document 11/23/24 14:31 NM (Rec: 11/23/24 15:59 NM [id number]) Current Condition History of Current Condition Onset Date DOS 11/15/24 Current Complaints pain, swelling, weakness, poor mobility, balance History of Current Condition Pt presents following L TKA on 11/15/24. Surgeon Dr. Conteh. Pt spent 2 days in hospital post surgery due to high heart rate, low blood pressure. Has since resolved. Pt also recently when to ED due to constipation following surgery . No dizziness, lightheadedness. present at evaluation and assisting with providing hx. Pt presents in manual wheelchair due to poor activity tolerance following several appt today, brought FWW. 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 Has been using FWW for mobility since surgery. Pt has 2 steps to enter home, L hand rail; stairs in home but does not use. Lives with . Bedroom is downstairs. Has 2 week follow up next week. No falls, no knee buckling since surgery. Has been performing HEP provided by hospital. Sleeping a temporary bed or recliner at home, has had leg propped up with knee bent. Has been icing several times ea day. is concerned about pt getting up at night alone to use bathroom as concerned about falls due to pain. Has been having adult kids help with nighttime care. Has not been wearing compression socks or hose; unsure if supposed to wear compression. Prior Treatments and Tests Previous PT prior to surgery Treatment Goals Patient/Caregiver Goals walks with family, get out in the shop, lawnmower PT-OP-C Subjective Start: 11/23/24 08:05 Freq: Status: Active Protocol: Document 12/07/24 14:32 AB (Rec: 12/07/24 16:17 AB [id number]) OP-PT Subjective Patient Comments Patient Comments Patient rates pain 4-5/10 start of session positioned in passive knee extension stretch. questioning how long to perform the passive knee extension stretch. lacking 5 deg extension to 107 deg flexion AROM left knee start of session. SLS L LE 3 sec without UE use rating pain 4/10 during trial 3/10 pre trial. Patient ed to continue using FWW. PT-OP-F Manual Assessment Start: 11/23/24 08:05 Freq: Status: Active Protocol: Document 11/23/24 14:31 NM (Rec: 11/23/24 15:59 NM [id number]) Manual Assessments Soft Tissue Assessment Soft Tissue Mobility Assessment Tightness and tenderness of L calf, hamstring, and hip flexors Joint Mobility Assessment Joint Mobility Assessment Decreased L knee PROM and AROM secondary to pain, swelling, and weakness. Limited active ankle mobility and hip mobility due to pain PT-OP-G Mobility & Gait Start: 11/23/24 08:05 Freq: Status: Active Protocol: Document 11/23/24 14:31 NM (Rec: 11/23/24 15:59 NM [id number]) OP Mobility Evaluation Bed Mobility Rolling Able to roll IND Supine to and from Sit Needs min A to lift LLE onto table but able to initiate 75% of motion Close SBA to assist with lowering LLE from table due to pain Transfers Sit to Stand CGA; Requires BUE assist to stand to FWW, 1 hand assist to sit. Maintains BLE equidistant, needs cueing for eccentric control OP Gait Assessment Gait Gait Assistance Required: Contact Guard Assist Distance (Feet) 131 Assistive Devices Assistive Device Gait Belt,Front Wheeled Walker Gait Deviations General Gait Pattern Antalgic,Decreased Feet Clearance Factors Limiting Gait Function Factors Limiting Gait Function Decreased Activity Tolerance, Decreased Strength,Limited Range of Motion,Pain PT-OP-J Posture/Palpation/Skin Start: 11/23/24 08:05 Freq: Status: Active Protocol: Document 11/23/24 14:31 NM (Rec: 11/23/24 15:59 NM [id number]) Palpation Assessment Location L knee Palpation Findings Edema,Tenderness Palpation Details Swelling present around knee, calf and thigh; will measure next session Tenderness in quad, hamstring Skin Assessment Incisional Assessment Incision Appearance/Comments Incision covered by intact bandage. No bleeding or drainage evident through bandage Other Assessments Skin Assessment Comments Swelling in LLE compared to RLE but no signs or symptoms of infection or DVT PT-OP-K Range of Motion Start: 11/23/24 08:05 Freq: Status: Active Protocol: Document 11/23/24 14:31 NM (Rec: 11/23/24 15:59 NM [id number]) Knee Goniometric Range of Motion Knee Right Flexion Active (degrees) 124 Extension Active (degrees) 0 Left Flexion Active (degrees) 107 Extension Active (degrees) 10 Comments limited by pain PT-OP-M Strength Start: 11/23/24 08:05 Freq: Status: Active Protocol: Document 11/23/24 14:31 NM (Rec: 11/23/24 15:59 NM [id number]) Hip Strength Hip Manual Muscle Testing Right Flexion (L2) 4 Good Extension (S1) 4 Good Abduction 4 Good Adduction 4 Good External Rotation 4 Good Internal Rotation 4 Good Left Flexion (L2) 3+ Fair+ Extension (S1) 3+ Fair+ Abduction 3+ Fair+ Adduction 3+ Fair+ External Rotation 3 Fair Internal Rotation 3 Fair Comments limited by pain Knee Strength Knee Manual Muscle Testing Right Flexion (S2) 4 Good Extension (L3) 4 Good Left Flexion (S2) 3- Fair- Extension (L3) 3- Fair- Comments limited by pain; did not assess with resistance to protect surgical repair Ankle/Foot Strength Ankle and Foot Manual Muscle Testing Right Dorsiflexion (L4) 4 Good Plantarflexion (S1) 4 Good Left Dorsiflexion (L4) 4 Good Plantarflexion (S1) 4 Good PT-OP-Q Treatments Start: 11/23/24 08:05 Freq: Status: Active Protocol: Document 12/07/24 14:32 AB (Rec: 12/07/24 16:17 AB [id number]) Gym Equipment Shuttle Recovery B squat Details cued TKE w/o locking knees, ball btwn legs for alignment Resistance 75# (3 navy) Reps/Time 2x15 Therapeutic Exercises Supine Exercises SLR Supine Exercise Name HEP review Side left Reps/Minutes X12 Comments verbal cues heel slide Supine Exercise Name 1. on djib[place] ball 2. AROM knee flexion- HEP Reps/Minutes 1. 1 min, 2. 10 stretches Supine Exercise Name HS Side left Reps/Minutes 60 sec X 1 knee extension stretch Supine Exercise Name HEP -passive supine, and seated on stool and foot stool Side left Equipment Used pillow under calf/ankle Reps/Minutes 4 min Comments Patient ed thi Standing Exercises terminal knee extension Side left Resistance level 4 band Reps/Minutes X5 with therapist X 10 with ( seated) Comments verbal cues Manual Therapy Treatment Consent Patient gave verbal consent for manual Yes treatment Soft Tissue Mobilization L knee Body Location L knee quad, hamstring Mobilization Type Myofascial Release,Rolling, Other Intensity/Depth Superficial Body Position hookying Comments and moderate PT-OP-T Assessment and Plan Start: 11/23/24 08:05 Freq: Status: Active Protocol: Document 12/07/24 14:32 AB (Rec: 12/07/24 16:17 AB [id number]) Physical Therapy Assessment Goals Four Impairment use of FWW; 2 MWT distance 131 ft with FWW Short Term Goal (STG) Pt will normalize gait mechanics using LRAD if appropriate with L knee pain < 3/10 in order to demonstrate improved tolerance for gait and decreased fall risk STG Duration 6 weeks [employer] Space Salesperson Goal (LTG) Pt will be able to complete 6 MWT >1100 ft (pre-op 6 MWT distance) in order to demonstrate improved tolerance for family ambulation outings LTG Duration 12 weeks Three Impairment needs assist with transfers Short Term Goal (STG) Pt will be IND with bed transfers in order to demonstrate increased mobility STG Duration 5 weeks Halfway Goal (LTG) Pt will be able be able to complate 30 sec sit to stand test within age-related norm in order to demonstrate improved strength and endurance needed for cars and toilet/chair transfers LTG Duration 12 weeks Two Impairment L knee strength impaired Short Term Goal (STG) Pt will increase L knee flex/ ext and global L hip strength to at least 4-/5 in order to demonstrate improved strength for gait, transfers, and stairs STG Duration 8 weeks [employer] Space Salesperson Goal (LTG) Pt will increase L knee flex/ ext and global L hip strength to at least 4/5 in order to demonstrate improved strength for gait, transfers, and stairs LTG Duration 12 weeks One Impairment L knee ROM lacking 10 deg ext to 107 deg flex Short Term Goal (STG) Pt will improve L knee ext to least lacking 5 deg and L knee flexion to at least 115 deg in order to improve ROM for gait and transfers STG Duration 6 weeks Halfway Goal (LTG) Pt will improve L knee ext to lacking 2 deg or less and L knee flexion AROM to at least 120 deg in order to improve ROM for gait and transfers LTG Duration 12 weeks Assessment Summary Assessment Lacking 1 deg ext to 111 deg flexion AROM left knee end of session. Linda rates pain end of session left knee. Physical Therapy Plan Frequency and Duration Frequency of Treatment 2x/Week Duration of treatment (weeks) 12 Plan of Care Start Date 11/23/24 Plan of Care End Date 02/16/25 Next Visit Focus/Plan Next Note Type Treatment Note Next Visit Plan Review HEP. Promote knee ext ROM, quad contraction functionally- 4 step up. LAQ , continue review SLR. Recumbent bike. leg press, squats/mini. side steps, hip strength.. Add knee flex: heel slides, knee flex in sitting. STS training. Swelling management Manual therapy
--- NOTE | 2024-12-12 17:07 | PT.OTN ---
Current Diagnoses Unilateral primary osteoarthritis, left knee (12/12/24) Stiffness of left knee, not elsewhere classified (12/12/24) Other lack of coordination (12/12/24) Weakness (12/12/24) Physical Therapy Treatment Note PT-OP-A Visit Information Start: 11/23/24 08:05 Freq: Status: Active Protocol: Document 12/12/24 14:44 NBM (Rec: 12/12/24 17:07 NBM [id number]) Out-Patient Physical Therapy Visit Information Visit Information Visit Type Treatment Note Visit Note Spouse Aye present throughout session Visit Start Time 14:35 Visit Stop Time 15:15 Visit Number 6 Number of [employer] Visits 2 Evaluation Information Evaluation Date 11/23/24 Precautions Precautions L TKA 11/15/24; WBAT w/ FWW PT-OP-B Current Condition Start: 11/23/24 08:05 Freq: Status: Active Protocol: Document 11/23/24 14:31 NM (Rec: 11/23/24 15:59 NM [id number]) Current Condition History of Current Condition Onset Date DOS 11/15/24 Current Complaints pain, swelling, weakness, poor mobility, balance History of Current Condition Pt presents following L TKA on 11/15/24. Surgeon Dr. Conteh. Pt spent 2 days in hospital post surgery due to high heart rate, low blood pressure. Has since resolved. Pt also recently when to ED due to constipation following surgery . No dizziness, lightheadedness. present at evaluation and assisting with providing hx. Pt presents in manual wheelchair due to poor activity tolerance following several appt today, brought FWW. 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 Has been using FWW for mobility since surgery. Pt has 2 steps to enter home, L hand rail; stairs in home but does not use. Lives with . Bedroom is downstairs. Has 2 week follow up next week. No falls, no knee buckling since surgery. Has been performing HEP provided by hospital. Sleeping a temporary bed or recliner at home, has had leg propped up with knee bent. Has been icing several times ea day. is concerned about pt getting up at night alone to use bathroom as concerned about falls due to pain. Has been having adult kids help with nighttime care. Has not been wearing compression socks or hose; unsure if supposed to wear compression. Prior Treatments and Tests Previous PT prior to surgery Treatment Goals Patient/Caregiver Goals walks with family, get out in the shop, lawnmower PT-OP-C Subjective Start: 11/23/24 08:05 Freq: Status: Active Protocol: Document 12/12/24 14:44 NBM (Rec: 12/12/24 17:07 NBM [id number]) OP-PT Subjective Patient Comments Patient Comments Alex reports 4/10 L knee pain at rest. He took Tylenol about an hour ago, and takes oxycodone only at night. He wonders when he can start Cardiac Rehab again. The passive extension stretch is the most uncomfortable and they've done it a max of ten minutes. PT-OP-F Manual Assessment Start: 11/23/24 08:05 Freq: Status: Active Protocol: Document 11/23/24 14:31 NM (Rec: 11/23/24 15:59 NM [id number]) Manual Assessments Soft Tissue Assessment Soft Tissue Mobility Assessment Tightness and tenderness of L calf, hamstring, and hip flexors Joint Mobility Assessment Joint Mobility Assessment Decreased L knee PROM and AROM secondary to pain, swelling, and weakness. Limited active ankle mobility and hip mobility due to pain PT-OP-G Mobility & Gait Start: 11/23/24 08:05 Freq: Status: Active Protocol: Document 11/23/24 14:31 NM (Rec: 11/23/24 15:59 NM [id number]) OP Mobility Evaluation Bed Mobility Rolling Able to roll IND Supine to and from Sit Needs min A to lift LLE onto table but able to initiate 75% of motion Close SBA to assist with lowering LLE from table due to pain Transfers Sit to Stand CGA; Requires BUE assist to stand to FWW, 1 hand assist to sit. Maintains BLE equidistant, needs cueing for eccentric control OP Gait Assessment Gait Gait Assistance Required: Contact Guard Assist Distance (Feet) 131 Assistive Devices Assistive Device Gait Belt,Front Wheeled Walker Gait Deviations General Gait Pattern Antalgic,Decreased Feet Clearance Factors Limiting Gait Function Factors Limiting Gait Function Decreased Activity Tolerance, Decreased Strength,Limited Range of Motion,Pain PT-OP-J Posture/Palpation/Skin Start: 11/23/24 08:05 Freq: Status: Active Protocol: Document 11/23/24 14:31 NM (Rec: 11/23/24 15:59 NM [id number]) Palpation Assessment Location L knee Palpation Findings Edema,Tenderness Palpation Details Swelling present around knee, calf and thigh; will measure next session Tenderness in quad, hamstring Skin Assessment Incisional Assessment Incision Appearance/Comments Incision covered by intact bandage. No bleeding or drainage evident through bandage Other Assessments Skin Assessment Comments Swelling in LLE compared to RLE but no signs or symptoms of infection or DVT PT-OP-K Range of Motion Start: 11/23/24 08:05 Freq: Status: Active Protocol: Document 11/23/24 14:31 NM (Rec: 11/23/24 15:59 NM [id number]) Knee Goniometric Range of Motion Knee Right Flexion Active (degrees) 124 Extension Active (degrees) 0 Left Flexion Active (degrees) 107 Extension Active (degrees) 10 Comments limited by pain PT-OP-M Strength Start: 11/23/24 08:05 Freq: Status: Active Protocol: Document 11/23/24 14:31 NM (Rec: 11/23/24 15:59 NM [id number]) Hip Strength Hip Manual Muscle Testing Right Flexion (L2) 4 Good Extension (S1) 4 Good Abduction 4 Good Adduction 4 Good External Rotation 4 Good Internal Rotation 4 Good Left Flexion (L2) 3+ Fair+ Extension (S1) 3+ Fair+ Abduction 3+ Fair+ Adduction 3+ Fair+ External Rotation 3 Fair Internal Rotation 3 Fair Comments limited by pain Knee Strength Knee Manual Muscle Testing Right Flexion (S2) 4 Good Extension (L3) 4 Good Left Flexion (S2) 3- Fair- Extension (L3) 3- Fair- Comments limited by pain; did not assess with resistance to protect surgical repair Ankle/Foot Strength Ankle and Foot Manual Muscle Testing Right Dorsiflexion (L4) 4 Good Plantarflexion (S1) 4 Good Left Dorsiflexion (L4) 4 Good Plantarflexion (S1) 4 Good PT-OP-Q Treatments Start: 11/23/24 08:05 Freq: Status: Active Protocol: Document 12/12/24 14:44 NBM (Rec: 12/12/24 17:07 NBM [id number]) Cardio Equipment Recumbent Bicycle Duration (Minutes) 6 Resistance 0 Seat Position 9 Other Pt achieves full rotation fwd and bwd, 6/10 L knee pain reported Therapeutic Exercises Supine Exercises SLR Supine Exercise Name HEP review Side left Reps/Minutes X15 Comments vc quad set to initiate and hold each rep heel slide Supine Exercise Name 1. on [place] ball-not today 2. AROM knee flexion- HEP Side left Equipment Used pillow case over LLE Reps/Minutes 1. 1 min 2. 10 Comments vc breath Prone Exercises passive extension Prone Exercise Name Long hold, low resistance Side left Resistance 2# AW Equipment Used pillow under hips Reps/Minutes 5' Comments 0 deg ext after, 6/10 discomfort behind L knee Sitting Exercises knee flexion Side left Equipment Used scooterboard Reps/Minutes x10 Comments increased pain-free ROM with repetitions Gait Training Gait Activity FWW Description ambulation w/ FWW Level of Assistance SBA Surface carpet Distance/Duration 170 ft Treatment Focus ambulation, proximation, step length Manual Therapy Treatment Consent Patient gave verbal consent for manual Yes treatment Soft Tissue Mobilization L knee Body Location L knee quad, hamstring Intensity/Depth Moderate Body Position Sitting Comments scar tissue mobilization over proximal incision only over quads where fully healed, due to small well-healing scabs present in middle and distal incision over knee. PT-OP-T Assessment and Plan Start: 11/23/24 08:05 Freq: Status: Active Protocol: Document 12/12/24 14:44 [facility] (Rec: 12/12/24 17:07 [facility] [id number]) Physical Therapy Assessment Goals Four Impairment use of FWW; 2 MWT distance 131 ft with FWW Short Term Goal (STG) Pt will normalize gait mechanics using LRAD if appropriate with L knee pain < 3/10 in order to demonstrate improved tolerance for gait and decreased fall risk STG Duration 6 weeks Residential Goal (LTG) Pt will be able to complete 6 MWT >1100 ft (pre-op 6 MWT distance) in order to demonstrate improved tolerance for family ambulation outings LTG Duration 12 weeks Three Impairment needs assist with transfers Short Term Goal (STG) Pt will be IND with bed transfers in order to demonstrate increased mobility STG Duration 5 weeks Residential Goal (LTG) Pt will be able be able to complate 30 sec sit to stand test within age-related norm in order to demonstrate improved strength and endurance needed for cars and toilet/chair transfers LTG Duration 12 weeks Two Impairment L knee strength impaired Short Term Goal (STG) Pt will increase L knee flex/ ext and global L hip strength to at least 4-/5 in order to demonstrate improved strength for gait, transfers, and stairs STG Duration 8 weeks Residential Goal (LTG) Pt will increase L knee flex/ ext and global L hip strength to at least 4/5 in order to demonstrate improved strength for gait, transfers, and stairs LTG Duration 12 weeks One Impairment L knee ROM lacking 10 deg ext to 107 deg flex Short Term Goal (STG) Pt will improve L knee ext to least lacking 5 deg and L knee flexion to at least 115 deg in order to improve ROM for gait and transfers STG Duration 6 weeks Residential Goal (LTG) Pt will improve L knee ext to lacking 2 deg or less and L knee flexion AROM to at least 120 deg in order to improve ROM for gait and transfers LTG Duration 12 weeks Assessment Summary Assessment Alex is able to complete full rotaion forward and backward Seat 9 for the first time today, and discomfort improves with repetitions. L SLR is challenging requires cues for quad set to initiate and maintain throughout range and eccentric control, no breathholding. Folllowing prone passive extension stretch using low load, long hold pt's L knee extension improves to 0 degrees. Supine L knee flexion AROM 115 degrees; w/ overpressure 120 degrees. He and spouse are educated on scar tissue mobilization over proximal incision only over quads where fully healed, due to small well-healing scabs present in middle and distal incision over knee. Pt is also educated for closer proximation and increased stride length with FWW and demos improved gait mechanics ambulating out of clinic end of session. Pt declines ice, will ice at home. Physical Therapy Plan Frequency and Duration Frequency of Treatment 2x/Week Duration of treatment (weeks) 12 Plan of Care Start Date 11/23/24 Plan of Care End Date 02/16/25 Therapeutic Interventions Therapeutic Interventions Balance Training,Gait Training ,Home Exercise Program,Joint Mobilizations,Manual Therapy, Neuromuscular Re-education, Orthotic/Prosthetic Management ,Patient/Caregiver Education, Self-Care/Home Management, Sensory Integration,Soft Tissue Mobilization,Taping, Therapeutic Activities, Therapeutic Exercises Modalities Cold Pack/Ice Massage,Electric Stimulation,Hot Packs, Ultrasound Next Visit Focus/Plan Next Note Type Treatment Note Next Visit Plan Review HEP. Promote knee ext ROM, quad contraction functionally- 4 step up. LAQ , continue review SLR. Recumbent bike. leg press, squats/mini. side steps, hip strength.. Add knee flex: heel slides, knee flex in sitting. STS training. Swelling management Manual therapy
--- NOTE | 2024-12-15 15:53 | PT.OTN ---
Current Diagnoses Unilateral primary osteoarthritis, left knee (12/15/24) Stiffness of left knee, not elsewhere classified (12/15/24) Other lack of coordination (12/15/24) Weakness (12/15/24) Physical Therapy Treatment Note PT-OP-A Visit Information Start: 11/23/24 08:05 Freq: Status: Active Protocol: Document 12/15/24 12:54 NM (Rec: 12/15/24 13:48 NM [id number]) Out-Patient Physical Therapy Visit Information Visit Information Visit Type Treatment Note Visit Note KX after 19 visits Aye present most of session Visit Start Time 13:00 Visit Stop Time 13:45 Visit Number 7 Number of DIRECTOR BROADCAST Visits 0 Evaluation Information Evaluation Date 11/23/24 Precautions Precautions L TKA 11/15/24; WBAT w/ FWW PT-OP-B Current Condition Start: 11/23/24 08:05 Freq: Status: Active Protocol: Document 11/23/24 14:31 NM (Rec: 11/23/24 15:59 NM [id number]) Current Condition History of Current Condition Onset Date DOS 11/15/24 Current Complaints pain, swelling, weakness, poor mobility, balance History of Current Condition Pt presents following L TKA on 11/15/24. Surgeon Dr. Conteh. Pt spent 2 days in hospital post surgery due to high heart rate, low blood pressure. Has since resolved. Pt also recently when to ED due to constipation following surgery . No dizziness, lightheadedness. present at evaluation and assisting with providing hx. Pt presents in manual wheelchair due to poor activity tolerance following several appt today, brought FWW. 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 Has been using FWW for mobility since surgery. Pt has 2 steps to enter home, L hand rail; stairs in home but does not use. Lives with . Bedroom is downstairs. Has 2 week follow up next week. No falls, no knee buckling since surgery. Has been performing HEP provided by hospital. Sleeping a temporary bed or recliner at home, has had leg propped up with knee bent. Has been icing several times ea day. is concerned about pt getting up at night alone to use bathroom as concerned about falls due to pain. Has been having adult kids help with nighttime care. Has not been wearing compression socks or hose; unsure if supposed to wear compression. Prior Treatments and Tests Previous PT prior to surgery Treatment Goals Patient/Caregiver Goals walks with family, get out in the shop, lawnmower PT-OP-C Subjective Start: 11/23/24 08:05 Freq: Status: Active Protocol: Document 12/15/24 12:54 NM (Rec: 12/15/24 13:48 NM [id number]) OP-PT Subjective Patient Comments Patient Comments Pt reports 4/10 L knee pain. States sleeping has not been great, reports back has been bothering him. PT-OP-F Manual Assessment Start: 11/23/24 08:05 Freq: Status: Active Protocol: Document 11/23/24 14:31 NM (Rec: 11/23/24 15:59 NM [id number]) Manual Assessments Soft Tissue Assessment Soft Tissue Mobility Assessment Tightness and tenderness of L calf, hamstring, and hip flexors Joint Mobility Assessment Joint Mobility Assessment Decreased L knee PROM and AROM secondary to pain, swelling, and weakness. Limited active ankle mobility and hip mobility due to pain PT-OP-G Mobility & Gait Start: 11/23/24 08:05 Freq: Status: Active Protocol: Document 11/23/24 14:31 NM (Rec: 11/23/24 15:59 NM [id number]) OP Mobility Evaluation Bed Mobility Rolling Able to roll IND Supine to and from Sit Needs min A to lift LLE onto table but able to initiate 75% of motion Close SBA to assist with lowering LLE from table due to pain Transfers Sit to Stand CGA; Requires BUE assist to stand to FWW, 1 hand assist to sit. Maintains BLE equidistant, needs cueing for eccentric control OP Gait Assessment Gait Gait Assistance Required: Contact Guard Assist Distance (Feet) 131 Assistive Devices Assistive Device Gait Belt,Front Wheeled Walker Gait Deviations General Gait Pattern Antalgic,Decreased Feet Clearance Factors Limiting Gait Function Factors Limiting Gait Function Decreased Activity Tolerance, Decreased Strength,Limited Range of Motion,Pain PT-OP-J Posture/Palpation/Skin Start: 11/23/24 08:05 Freq: Status: Active Protocol: Document 11/23/24 14:31 NM (Rec: 11/23/24 15:59 NM [id number]) Palpation Assessment Location L knee Palpation Findings Edema,Tenderness Palpation Details Swelling present around knee, calf and thigh; will measure next session Tenderness in quad, hamstring Skin Assessment Incisional Assessment Incision Appearance/Comments Incision covered by intact bandage. No bleeding or drainage evident through bandage Other Assessments Skin Assessment Comments Swelling in LLE compared to RLE but no signs or symptoms of infection or DVT PT-OP-K Range of Motion Start: 11/23/24 08:05 Freq: Status: Active Protocol: Document 11/23/24 14:31 NM (Rec: 11/23/24 15:59 NM [id number]) Knee Goniometric Range of Motion Knee Right Flexion Active (degrees) 124 Extension Active (degrees) 0 Left Flexion Active (degrees) 107 Extension Active (degrees) 10 Comments limited by pain PT-OP-M Strength Start: 11/23/24 08:05 Freq: Status: Active Protocol: Document 11/23/24 14:31 NM (Rec: 11/23/24 15:59 NM [id number]) Hip Strength Hip Manual Muscle Testing Right Flexion (L2) 4 Good Extension (S1) 4 Good Abduction 4 Good Adduction 4 Good External Rotation 4 Good Internal Rotation 4 Good Left Flexion (L2) 3+ Fair+ Extension (S1) 3+ Fair+ Abduction 3+ Fair+ Adduction 3+ Fair+ External Rotation 3 Fair Internal Rotation 3 Fair Comments limited by pain Knee Strength Knee Manual Muscle Testing Right Flexion (S2) 4 Good Extension (L3) 4 Good Left Flexion (S2) 3- Fair- Extension (L3) 3- Fair- Comments limited by pain; did not assess with resistance to protect surgical repair Ankle/Foot Strength Ankle and Foot Manual Muscle Testing Right Dorsiflexion (L4) 4 Good Plantarflexion (S1) 4 Good Left Dorsiflexion (L4) 4 Good Plantarflexion (S1) 4 Good PT-OP-Q Treatments Start: 11/23/24 08:05 Freq: Status: Active Protocol: Document 12/15/24 12:54 NM (Rec: 12/15/24 13:48 NM [id number]) Cardio Equipment Recumbent Bicycle Duration (Minutes) 10 Resistance 0 Other full rot; seat level 9>8>7>6; cued no hip ER, mild knee pain Therapeutic Exercises Supine Exercises wall slide Side left Reps/Minutes 2 min Comments improved flexion post; no inc knee pain SLR Supine Exercise Name HEP review Side left Reps/Minutes 10 Comments cued quad set, better ea rep but still cueing needed heel slide Supine Exercise Name AROM knee flex Side left Reps/Minutes 10 Comments pre manual; post bike; 116>117 deg Sitting Exercises sit to stand Sitting Exercise Name trialed- unable to complete w/ o UE assist Equipment Used std chair Reps/Minutes 1 Standing Exercises side steps Side bilateral Resistance level 2 band at thighs Equipment Used B hand support on counter Reps/Minutes 2x10 ft Comments close SBA squat Standing Exercise Name c/ UE support - HEP review Side bilateral Equipment Used chair behind target Reps/Minutes 10 Manual Therapy Treatment Consent Patient gave verbal consent for manual Yes treatment Soft Tissue Mobilization L knee Body Location L knee quad, hamstring, scar mobility Mobilization Type Rolling,Strumming Intensity/Depth Moderate Body Position Supine Comments Fewer trigger points. mill tender second operator behind knee, especially along HS. Scar mobility improving but only able to perform mobilization proximally as several scabs still present along healing incision distally. Has pitting edema today. reports recently removed from 2nd water pill Joint Mobilizations L knee Joint patellar, tibiofemoral Direction inf glide; slight distraction with AP/PA glides and overpressure into flex Grade III Body Position Hooklying Reps/Duration 2x10 Comments Monitored for pain. Improved to 119 deg flexion post manual tx PT-OP-T Assessment and Plan Start: 11/23/24 08:05 Freq: Status: Active Protocol: Document 12/15/24 12:54 NM (Rec: 12/15/24 13:48 NM [id number]) Physical Therapy Assessment Goals Four Impairment use of FWW; 2 MWT distance 131 ft with FWW Short Term Goal (STG) Pt will normalize gait mechanics using LRAD if appropriate with L knee pain < 3/10 in order to demonstrate improved tolerance for gait and decreased fall risk STG Duration 6 weeks Executive Asst Goal (LTG) Pt will be able to complete 6 MWT >1100 ft (pre-op 6 MWT distance) in order to demonstrate improved tolerance for family ambulation outings LTG Duration 12 weeks Three Impairment needs assist with transfers Short Term Goal (STG) Pt will be IND with bed transfers in order to demonstrate increased mobility STG Duration 5 weeks Executive Asst Goal (LTG) Pt will be able be able to complate 30 sec sit to stand test within age-related norm in order to demonstrate improved strength and endurance needed for cars and toilet/chair transfers LTG Duration 12 weeks Two Impairment L knee strength impaired Short Term Goal (STG) Pt will increase L knee flex/ ext and global L hip strength to at least 4-/5 in order to demonstrate improved strength for gait, transfers, and stairs STG Duration 8 weeks Senior Living Goal (LTG) Pt will increase L knee flex/ ext and global L hip strength to at least 4/5 in order to demonstrate improved strength for gait, transfers, and stairs LTG Duration 12 weeks One Impairment L knee ROM lacking 10 deg ext to 107 deg flex Short Term Goal (STG) Pt will improve L knee ext to least lacking 5 deg and L knee flexion to at least 115 deg in order to improve ROM for gait and transfers STG Duration 6 weeks Executive Asst Goal (LTG) Pt will improve L knee ext to lacking 2 deg or less and L knee flexion AROM to at least 120 deg in order to improve ROM for gait and transfers LTG Duration 12 weeks Assessment Summary Assessment Pt is currently 4 weeks s/p L TKA. Currently has full knee extension and L knee flexion improved from 116 deg at start of session to 119 deg at end of session. Pt compliant with HEP. Able to progress knee flexion on recumbent bike with full rotations, less knee pain. Trialed wall slides for knee flexion ROM further but unable to safely replicate at home. Needs cues for knee-hip- ankle alignment to prevent compensations at hip with flexion. Progressed to resisted lateral flexion and minisquat depth. Still demos decreased BLE strength; unable to perform STS. Pt would continue to benefit from skilled PT for progressive L knee ROM and strength in order to improve gait, transfers, and activity tolerance. Physical Therapy Plan Frequency and Duration Frequency of Treatment 2x/Week Duration of treatment (weeks) 12 Plan of Care Start Date 11/23/24 Plan of Care End Date 02/16/25 Therapeutic Interventions Therapeutic Interventions Balance Training,Gait Training ,Home Exercise Program,Joint Mobilizations,Manual Therapy, Neuromuscular Re-education, Orthotic/Prosthetic Management ,Patient/Caregiver Education, Self-Care/Home Management, Sensory Integration,Soft Tissue Mobilization,Taping, Therapeutic Activities, Therapeutic Exercises Modalities Cold Pack/Ice Massage,Electric Stimulation,Hot Packs, Ultrasound Next Visit Focus/Plan Next Note Type Treatment Note Next Visit Plan STS from elevated ht, side steps c/ band, spc gait training, SLS and TUG to determine if appropriate to d/ c FWW. PN 2 visits Progress knee flexion ROM- mobilizations, wall slides. Cont recumbent bike. add leg press, glute/quad strength: step up, sliders, hip 3 way. balance training Manual therapy
--- NOTE | 2024-12-19 16:55 | PT.OTN ---
Physical Therapy Treatment Note PT-OP-A Visit Information Start: 11/23/24 08:05 Freq: Status: Active Protocol: Document 12/19/24 14:38 NBM (Rec: 01/12/25 06:32 [facility] [phone]-) Out-Patient Physical Therapy Visit Information Visit Information Visit Type Treatment Note Visit Note KX after 19 visits Aye present Visit Start Time 14:38 Visit Stop Time 15:27 Visit Number 8 Number of LASTING FLOORWORKER Visits 1 Evaluation Information Evaluation Date 11/23/24 Precautions Precautions L TKA 11/15/24; WBAT w/ FWW PT-OP-B Current Condition Start: 11/23/24 08:05 Freq: Status: Active Protocol: Document 11/23/24 14:31 NM (Rec: 11/23/24 15:59 NM [id number]) Current Condition History of Current Condition Onset Date DOS 11/15/24 Current Complaints pain, swelling, weakness, poor mobility, balance History of Current Condition Pt presents following L TKA on 11/15/24. Surgeon Dr. Conteh. Pt spent 2 days in hospital post surgery due to high heart rate, low blood pressure. Has since resolved. Pt also recently when to ED due to constipation following surgery . No dizziness, lightheadedness. present at evaluation and assisting with providing hx. Pt presents in manual wheelchair due to poor activity tolerance following several appt today, brought FWW. 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 Has been using FWW for mobility since surgery. Pt has 2 steps to enter home, L hand rail; stairs in home but does not use. Lives with . Bedroom is downstairs. Has 2 week follow up next week. No falls, no knee buckling since surgery. Has been performing HEP provided by hospital. Sleeping a temporary bed or recliner at home, has had leg propped up with knee bent. Has been icing several times ea day. is concerned about pt getting up at night alone to use bathroom as concerned about falls due to pain. Has been having adult kids help with nighttime care. Has not been wearing compression socks or hose; unsure if supposed to wear compression. Prior Treatments and Tests Previous PT prior to surgery Treatment Goals Patient/Caregiver Goals walks with family, get out in the shop, lawnmower PT-OP-C Subjective Start: 11/23/24 08:05 Freq: Status: Active Protocol: Document 12/19/24 14:38 NBM (Rec: 01/12/25 06:32 [facility] [phone]-) OP-PT Subjective Patient Comments Patient Comments Alex reports L knee soreness. He took medications about thirty minutes ago. PT-OP-Q Treatments Start: 11/23/24 08:05 Freq: Status: Active Protocol: Document 12/19/24 14:38 NBM (Rec: 01/12/25 06:32 [facility] [phone]-) Cardio Equipment Recumbent Bicycle Duration (Minutes) 10 Resistance 0 Seat Position 6>5 Other vc for LLE alignment d/t excessive knee valgus Therapeutic Exercises Supine Exercises SLR Supine Exercise Name HEP review Side left Reps/Minutes 10 Comments cueing to initiate w/ quad sest and maintain throughout heel slide Supine Exercise Name AROM knee flex Side left Reps/Minutes 10 Sitting Exercises sit to stand Sitting Exercise Name from standard chair Side bilateral Equipment Used std chair to 2 foam to work on ecc. control Reps/Minutes x5 Comments CGA Standing Exercises side steps Standing Exercise Name close SBA Side bilateral Resistance level 2 band at thighs Equipment Used B hand support on counter Reps/Minutes 2x10 ft Comments cues for upright posture, gluteal activation squat Standing Exercise Name c/ UE support - HEP review Equipment Used chair behind target Reps/Minutes 10 Comments cues for hip hinge Manual Therapy Treatment Consent Patient gave verbal consent for manual Yes treatment Soft Tissue Mobilization L knee Body Location L knee quad, hamstring, scar mobility Mobilization Type Cross-Friction,Rolling, Strumming,Other Intensity/Depth Superficial, Moderate Body Position Supine Comments light edema massage for swelling medial and superior to patella. scar tissue mobility to incision except for one closely-healed scab in middle of incision. circular stroke focus to proximal and distal scar. PT-OP-R Modalities Start: 01/12/25 06:26 Freq: Status: Active Protocol: Document 12/19/24 14:38 NBM (Rec: 01/12/25 06:32 [facility] [phone]-) Hot Pack/Cold Pack Treatment Cold Pack Location L knee Patient Position Hooklying Patient Tolerance Good Comments LEs on bolster. 10 min PT-OP-T Assessment and Plan Start: 11/23/24 08:05 Freq: Status: Active Protocol: Document 12/19/24 14:38 [facility] (Rec: 01/12/25 06:32 [facility] [phone]-) Physical Therapy Assessment Goals Four Impairment use of FWW; 2 MWT distance 131 ft with FWW Short Term Goal (STG) Pt will normalize gait mechanics using LRAD if appropriate with L knee pain < 3/10 in order to demonstrate improved tolerance for gait and decreased fall risk STG Duration 6 weeks Vegetable Farming Supervisor Goal (LTG) Pt will be able to complete 6 MWT >1100 ft (pre-op 6 MWT distance) in order to demonstrate improved tolerance for family ambulation outings LTG Duration 12 weeks Three Impairment needs assist with transfers Short Term Goal (STG) Pt will be IND with bed transfers in order to demonstrate increased mobility STG Duration 5 weeks Vegetable Farming Supervisor Goal (LTG) Pt will be able be able to complete 30 sec sit to stand test within age-related norm in order to demonstrate improved strength and endurance needed for cars and toilet/chair transfers LTG Duration 12 weeks Two Impairment L knee strength impaired Short Term Goal (STG) Pt will increase L knee flex/ ext and global L hip strength to at least 4-/5 in order to demonstrate improved strength for gait, transfers, and stairs STG Duration 8 weeks Shelter Goal (LTG) Pt will increase L knee flex/ ext and global L hip strength to at least 4/5 in order to demonstrate improved strength for gait, transfers, and stairs LTG Duration 12 weeks One Impairment L knee ROM lacking 10 deg ext to 107 deg flex Short Term Goal (STG) Pt will improve L knee ext to least lacking 5 deg and L knee flexion to at least 115 deg in order to improve ROM for gait and transfers STG Duration 6 weeks Vegetable Farming Supervisor Goal (LTG) Pt will improve L knee ext to lacking 2 deg or less and L knee flexion AROM to at least 120 deg in order to improve ROM for gait and transfers LTG Duration 12 weeks Assessment Summary Assessment Alex presents w/ FWW and requires occasional cues for proximation and upright posture. He reports L knee soreness and has visible swelling superior and medial to L patella which improves w/ light edema massage. He is able to complete full rotations on recumbent bike starting at seat Lvl 6 and increasing to Lvl 5 within two minutes, but requires cues for L lower extremity alignment due to excessive knee valgus. Edu to pt of pain management techniques including timing of pain medications, elevation above the heart for swelling, and cryotherapy. Physical Therapy Plan Frequency and Duration Frequency of Treatment 2x/Week Duration of treatment (weeks) 12 Plan of Care Start Date 11/23/24 Plan of Care End Date 02/16/25 Therapeutic Interventions Therapeutic Interventions Balance Training,Gait Training ,Home Exercise Program,Joint Mobilizations,Manual Therapy, Neuromuscular Re-education, Orthotic/Prosthetic Management ,Patient/Caregiver Education, Self-Care/Home Management, Sensory Integration,Soft Tissue Mobilization,Taping, Therapeutic Activities, Therapeutic Exercises Modalities Cold Pack/Ice Massage,Electric Stimulation,Hot Packs, Ultrasound Next Visit Focus/Plan Next Note Type Treatment Note Next Visit Plan STS from elevated ht, side steps c/ band, spc gait training, SLS and TUG to determine if appropriate to d/ c FWW. PN 2 visits Progress knee flexion ROM- mobilizations, wall slides. Cont recumbent bike. add leg press, glute/quad strength: step up, sliders, hip 3 way. balance training Manual therapy
--- NOTE | 2024-12-21 15:17 | PT.OTN ---
Current Diagnoses Unilateral primary osteoarthritis, left knee (12/21/24) Stiffness of left knee, not elsewhere classified (12/21/24) Other lack of coordination (12/21/24) Weakness (12/21/24) Physical Therapy Treatment Note PT-OP-A Visit Information Start: 11/23/24 08:05 Freq: Status: Active Protocol: Document 12/21/24 12:59 NM (Rec: 12/21/24 13:50 NM [id number]) Out-Patient Physical Therapy Visit Information Visit Information Visit Type Progress Note Visit Note KX after 19 visits Aye present Visit Start Time 13:02 Visit Stop Time 13:45 Visit Number 9 Evaluation Information Evaluation Date 11/23/24 Precautions Precautions L TKA 11/15/24; WBAT w/ FWW PT-OP-B Current Condition Start: 11/23/24 08:05 Freq: Status: Active Protocol: Document 11/23/24 14:31 NM (Rec: 11/23/24 15:59 NM [id number]) Current Condition History of Current Condition Onset Date DOS 11/15/24 Current Complaints pain, swelling, weakness, poor mobility, balance History of Current Condition Pt presents following L TKA on 11/15/24. Surgeon Dr. Conteh. Pt spent 2 days in hospital post surgery due to high heart rate, low blood pressure. Has since resolved. Pt also recently when to ED due to constipation following surgery . No dizziness, lightheadedness. present at evaluation and assisting with providing hx. Pt presents in manual wheelchair due to poor activity tolerance following several appt today, brought FWW. 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 Has been using FWW for mobility since surgery. Pt has 2 steps to enter home, L hand rail; stairs in home but does not use. Lives with . Bedroom is downstairs. Has 2 week follow up next week. No falls, no knee buckling since surgery. Has been performing HEP provided by hospital. Sleeping a temporary bed or recliner at home, has had leg propped up with knee bent. Has been icing several times ea day. is concerned about pt getting up at night alone to use bathroom as concerned about falls due to pain. Has been having adult kids help with nighttime care. Has not been wearing compression socks or hose; unsure if supposed to wear compression. Prior Treatments and Tests Previous PT prior to surgery Treatment Goals Patient/Caregiver Goals walks with family, get out in the shop, lawnmower PT-OP-C Subjective Start: 11/23/24 08:05 Freq: Status: Active Protocol: Document 12/21/24 12:59 NM (Rec: 12/21/24 13:50 NM [id number]) OP-PT Subjective Patient Comments Patient Comments Pt reports 4-5/10 L knee pain. He reports pain in quad today . Pt reports improvements with knee flexion using bike, ambulation with FWW. Reports has been walking without FWW, asking for pt to not. Pt still wants to work on transfers, getting off FWW, balance, strength. Compliant with HEP per but needs reminders and cueing. PT-OP-F Manual Assessment Start: 11/23/24 08:05 Freq: Status: Active Protocol: Document 11/23/24 14:31 NM (Rec: 11/23/24 15:59 NM [id number]) Manual Assessments Soft Tissue Assessment Soft Tissue Mobility Assessment Tightness and tenderness of L calf, hamstring, and hip flexors Joint Mobility Assessment Joint Mobility Assessment Decreased L knee PROM and AROM secondary to pain, swelling, and weakness. Limited active ankle mobility and hip mobility due to pain PT-OP-G Mobility & Gait Start: 11/23/24 08:05 Freq: Status: Active Protocol: Document 11/23/24 14:31 NM (Rec: 11/23/24 15:59 NM [id number]) OP Mobility Evaluation Bed Mobility Rolling Able to roll IND Supine to and from Sit Needs min A to lift LLE onto table but able to initiate 75% of motion Close SBA to assist with lowering LLE from table due to pain Transfers Sit to Stand CGA; Requires BUE assist to stand to FWW, 1 hand assist to sit. Maintains BLE equidistant, needs cueing for eccentric control OP Gait Assessment Gait Gait Assistance Required: Contact Guard Assist Distance (Feet) 131 Assistive Devices Assistive Device Gait Belt,Front Wheeled Walker Gait Deviations General Gait Pattern Antalgic,Decreased Feet Clearance Factors Limiting Gait Function Factors Limiting Gait Function Decreased Activity Tolerance, Decreased Strength,Limited Range of Motion,Pain PT-OP-J Posture/Palpation/Skin Start: 11/23/24 08:05 Freq: Status: Active Protocol: Document 11/23/24 14:31 NM (Rec: 11/23/24 15:59 NM [id number]) Palpation Assessment Location L knee Palpation Findings Edema,Tenderness Palpation Details Swelling present around knee, calf and thigh; will measure next session Tenderness in quad, hamstring Skin Assessment Incisional Assessment Incision Appearance/Comments Incision covered by intact bandage. No bleeding or drainage evident through bandage Other Assessments Skin Assessment Comments Swelling in LLE compared to RLE but no signs or symptoms of infection or DVT PT-OP-K Range of Motion Start: 11/23/24 08:05 Freq: Status: Active Protocol: Document 12/21/24 12:59 NM (Rec: 12/21/24 13:50 NM [id number]) Knee Goniometric Range of Motion Knee Right Flexion Active (degrees) 124 Extension Active (degrees) 0 Left Flexion Active (degrees) 116 Extension Active (degrees) 2 Extension Passive (degrees) 0 Comments limited by pain PT-OP-M Strength Start: 11/23/24 08:05 Freq: Status: Active Protocol: Document 12/21/24 12:59 NM (Rec: 12/21/24 13:50 NM [id number]) Hip Strength Hip Manual Muscle Testing Right Flexion (L2) 4 Good Extension (S1) 4 Good Abduction 4 Good Adduction 4 Good External Rotation 4 Good Internal Rotation 4 Good Left Flexion (L2) 4- Good- Extension (S1) 4- Good- Abduction 4- Good- Adduction 4- Good- External Rotation 4- Good- Internal Rotation 4- Good- Comments limited by pain Knee Strength Knee Manual Muscle Testing Right Flexion (S2) 4 Good Extension (L3) 4 Good Left Flexion (S2) 3+ Fair+ Extension (L3) 3+ Fair+ Comments 12/21/24: pain with resisted flex/ext IE: 3-/5 MMT, limited by pain; did not assess with resistance to protect surgical repair PT-OP-Q Treatments Start: 11/23/24 08:05 Freq: Status: Active Protocol: Document 12/21/24 12:59 NM (Rec: 12/21/24 13:50 NM [id number]) Therapeutic Exercises Supine Exercises heel slide Supine Exercise Name AROM knee flex Side left Reps/Minutes 10 Comments pre manual Sitting Exercises sit to stand Sitting Exercise Name from elevated height 23 > 21 >19.5 Equipment Used c/ fwd trunk lean, no UE support Reps/Minutes 5 ea position Comments cued form, weight over midfoot ; needs increased time knee flexion Sitting Exercise Name heel slide Side left Reps/Minutes 10 c/ over pressure with RLE Gait Training Gait Activity TUG Device Used spc Level of Assistance close SBA> CGA on turns Comments 22 challenging to rise from chair , unsteady on turns because lifting spc, needs CGA to prevent fall spc Device Used spc Level of Assistance CGA > SBA, moderate cueing Surface stable Distance/Duration 15 min Comments 1. sequencing w/ spc, 2 pt pattern Moderate cueing initially fo r2 pt pattern, improved with reps but then cueing to place spc flat on ground and not carry spc. spc fit for pt height 2. turning Tendency to lift and carry spc or drag spc on ground behind pt while attempting to turn, both increased trunk instability. Cueing for spc placement, sequencing with turning 3. transfers from chair with initiation of gait cueing for spc position in sitting > standing with placement for initiation of gait and posture 4. transfers to chair c/ turn and backing up to chair visual and verbal cues for turning closer to chair before attempting to back up to chair vs when using FWW and turning sooner. cues tall posture, larger steps to prevent shuffling Manual Therapy Treatment Consent Patient gave verbal consent for manual Yes treatment Soft Tissue Mobilization scar mobility Body Location scar Mobilization Type Rolling,Other Intensity/Depth Superficial Body Position Hooklying Comments No scabs present but adhesions along scar especially distally. Completely intact, no redness around scar. Rolling and lfiting L knee Body Location L knee quad, hamstring,calf, hip flexors Mobilization Type Rolling,Strumming Intensity/Depth Moderate Body Position Supine Comments Pitting edema still present, swelling around knee. Fewer trigger points and restrictions. No tenderness across quad with palpation but tightness Joint Mobilizations L knee Joint patellar, tibiofemoral Direction inf glide; slight distraction with AP/PA glides and overpressure into flex Grade III Body Position Hooklying Reps/Duration 2x10 Comments Monitored for pain. Improved to 120 deg flexion post manual tx Neuro Re-Education Treatment Balance Activities SLS Details added to HEP c/ UE assist Surface stable Comments 1. no UE assist: 2 sec L, 1 sec R; CGA 2. c/ 1 finger assist: 10 sec ea Self-Care/Home Management Treatment Education Patient Education Fall Risk,Pain Management, Safety Caregiver Education Pt's approached PT at end of session when pt filling out LEFS, has notice cognitive decline in pt and thinks may be affected exercises/ability to be safe with FWW/spc. PT and pt briefly spoke, with PT recommending that continue to gently remind/ assist pt with exercises and for cueing to use FWW at home. Other Education PT educated pt on use of FWW at home, not to attempt gait without AD due to reports of reaching of objects to stabilize. At this time due to TUG score and poor SLS without spc, recommended continued use of FWW at home and in community for now. Strong education to pt about safety with AD use PT-OP-T Assessment and Plan Start: 11/23/24 08:05 Freq: Status: Active Protocol: Document 12/21/24 12:59 NM (Rec: 12/21/24 13:50 NM [id number]) Physical Therapy Assessment Goals Four Impairment use of FWW; 2 MWT distance 131 ft with FWW Short Term Goal (STG) Pt will normalize gait mechanics using LRAD if appropriate with L knee pain < 3/10 in order to demonstrate improved tolerance for gait and decreased fall risk 12/21/24: step through pattern with FWW; CGA and moderate cueing with spc, needs cueing for sequencing/placement/ safety but no increased pain STG Duration 6 weeks PROGRESSING 12/21 Float Nurse Goal (LTG) Pt will be able to complete 6 MWT >1100 ft (pre-op 6 MWT distance) in order to demonstrate improved tolerance for family ambulation outings LTG Duration 12 weeks Three Impairment needs assist with transfers Short Term Goal (STG) Pt will be IND with bed transfers in order to demonstrate increased mobility 12/21/24: pt IND with bed mobility STG Duration 5 weeks MET 12/21 Custodial Goal (LTG) Pt will be able be able to complete 30 sec sit to stand test within age-related norm in order to demonstrate improved strength and endurance needed for cars and toilet/chair transfers LTG Duration 12 weeks Two Impairment L knee strength impaired Short Term Goal (STG) Pt will increase L knee flex/ ext and global L hip strength to at least 4-/5 in order to demonstrate improved strength for gait, transfers, and stairs 12/21/24: 3+/5 MMT knee flex/ ext, pain w/ flex/ext STG Duration 8 weeks PROGRESSING 12/21 Custodial Goal (LTG) Pt will increase L knee flex/ ext and global L hip strength to at least 4/5 in order to demonstrate improved strength for gait, transfers, and stairs LTG Duration 12 weeks One Impairment L knee ROM lacking 10 deg ext to 107 deg flex Short Term Goal (STG) Pt will improve L knee ext to least lacking 5 deg and L knee flexion to at least 115 deg in order to improve ROM for gait and transfers 12/21/24: lacking 2 deg ext, 116 deg flex STG Duration 6 weeks MET 12/21 Float Nurse Goal (LTG) Pt will improve L knee ext to lacking 2 deg or less and L knee flexion AROM to at least 120 deg in order to improve ROM for gait and transfers LTG Duration 12 weeks Progress Towards Goals Progress Towards Goals Progressing Toward Goals Progress Comments Meeting STGs, demos progression toward LTGs Assessment Summary Assessment Pt reports soreness in L knee at end of session, but has 120 deg of L knee flexion at end of session. Has maintained full L knee extension. Trialed ambulation with spc. Moderate cueing needed for safety, placement, and sequencing during gait and transfers. TUG time 22 indicating need for AD, needs CGA for assist. Most limited with STS from standard chair due to knee flex ROM and quad/glute weakness. Pt able to perform STS from 19.5 plinth without UE assist but needs verbal/ tactile cueing for weight shifting, execution, and control. Pt would continue to benefit from skilled PT to improve knee ROM, strength, and ability to perform gait and transfers. Physical Therapy Plan Frequency and Duration Frequency of Treatment 2x/Week Duration of treatment (weeks) 12 Plan of Care Start Date 11/23/24 Plan of Care End Date 02/16/25 Therapeutic Interventions Therapeutic Interventions Balance Training,Gait Training ,Home Exercise Program,Joint Mobilizations,Manual Therapy, Neuromuscular Re-education, Orthotic/Prosthetic Management ,Patient/Caregiver Education, Self-Care/Home Management, Sensory Integration,Soft Tissue Mobilization,Taping, Therapeutic Activities, Therapeutic Exercises Modalities Cold Pack/Ice Massage,Electric Stimulation,Hot Packs, Ultrasound Next Visit Focus/Plan Next Note Type Treatment Note Next Visit Plan spc training (based on SLS, Coyle, TUG, pain levels- if safe to transition to spc)- needs transfer training c/ spc , STS from elevated ht to std chair, leg press/slider squat, side steps c/ band, SLS and TUG to determine if appropriate to d/c FWW. Progress knee flexion ROM- mobilizations, wall slides. Cont recumbent bike. add leg press, glute/quad strength: step up, sliders, hip 3 way. balance training Manual therapy
--- NOTE | 2024-12-26 16:50 | PT.OTN ---
Current Diagnoses Unilateral primary osteoarthritis, left knee (12/26/24) Stiffness of left knee, not elsewhere classified (12/26/24) Other lack of coordination (12/26/24) Weakness (12/26/24) Physical Therapy Treatment Note PT-OP-A Visit Information Start: 11/23/24 08:05 Freq: Status: Active Protocol: Document 12/26/24 10:21 AB (Rec: 12/26/24 16:46 AB [id number]) Out-Patient Physical Therapy Visit Information Visit Information Visit Type Progress Note Visit Note KX after 19 visits Aye present Visit Start Time 13:47 Visit Stop Time 14:32 Visit Number 10 Number of PARTS BACK COUNTER MAN Visits 1 Evaluation Information Evaluation Date 11/23/24 Precautions Precautions L TKA 11/15/24; WBAT w/ FWW PT-OP-B Current Condition Start: 11/23/24 08:05 Freq: Status: Active Protocol: Document 11/23/24 14:31 NM (Rec: 11/23/24 15:59 NM [id number]) Current Condition History of Current Condition Onset Date DOS 11/15/24 Current Complaints pain, swelling, weakness, poor mobility, balance History of Current Condition Pt presents following L TKA on 11/15/24. Surgeon Dr. Conteh. Pt spent 2 days in hospital post surgery due to high heart rate, low blood pressure. Has since resolved. Pt also recently when to ED due to constipation following surgery . No dizziness, lightheadedness. present at evaluation and assisting with providing hx. Pt presents in manual wheelchair due to poor activity tolerance following several appt today, brought FWW. 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 Has been using FWW for mobility since surgery. Pt has 2 steps to enter home, L hand rail; stairs in home but does not use. Lives with . Bedroom is downstairs. Has 2 week follow up next week. No falls, no knee buckling since surgery. Has been performing HEP provided by hospital. Sleeping a temporary bed or recliner at home, has had leg propped up with knee bent. Has been icing several times ea day. is concerned about pt getting up at night alone to use bathroom as concerned about falls due to pain. Has been having adult kids help with nighttime care. Has not been wearing compression socks or hose; unsure if supposed to wear compression. Prior Treatments and Tests Previous PT prior to surgery Treatment Goals Patient/Caregiver Goals walks with family, get out in the shop, lawnmower PT-OP-C Subjective Start: 11/23/24 08:05 Freq: Status: Active Protocol: Document 12/26/24 10:21 AB (Rec: 12/26/24 16:46 AB [id number]) OP-PT Subjective Patient Comments Patient Comments Patient reports the knee is the same. Patient rates left knee pain 4/10 start of session. SLS L LE 3 sec with reports of a little increased pain in the knee. (Patient pushes FWW away and steps to mat without use of FWW.) Lacking 5 deg extension to 120 deg flexion AROM start of session. PT-OP-D Balance Start: 11/23/24 08:05 Freq: Status: Active Protocol: Document 12/26/24 10:21 AB (Rec: 12/26/24 16:47 AB [id number]) Balance Tests Single Limb Standing Single Limb- Left 3 sec PT-OP-E Functional Tests Start: 12/26/24 16:48 Freq: Status: Active Protocol: Document 12/26/24 10:21 AB (Rec: 12/26/24 16:49 AB [id number]) Functional Tests Timed Up and Go (TUG) Score 16.47 seconds Comments Using [facility] [place]airment [place] 60 to <80% Impaired (Score 16- 17) PT-OP-F Manual Assessment Start: 11/23/24 08:05 Freq: Status: Active Protocol: Document 11/23/24 14:31 NM (Rec: 11/23/24 15:59 NM [id number]) Manual Assessments Soft Tissue Assessment Soft Tissue Mobility Assessment Tightness and tenderness of L calf, hamstring, and hip flexors Joint Mobility Assessment Joint Mobility Assessment Decreased L knee PROM and AROM secondary to pain, swelling, and weakness. Limited active ankle mobility and hip mobility due to pain PT-OP-G Mobility & Gait Start: 11/23/24 08:05 Freq: Status: Active Protocol: Document 11/23/24 14:31 NM (Rec: 11/23/24 15:59 NM [id number]) OP Mobility Evaluation Bed Mobility Rolling Able to roll IND Supine to and from Sit Needs min A to lift LLE onto table but able to initiate 75% of motion Close SBA to assist with lowering LLE from table due to pain Transfers Sit to Stand CGA; Requires BUE assist to stand to FWW, 1 hand assist to sit. Maintains BLE equidistant, needs cueing for eccentric control OP Gait Assessment Gait Gait Assistance Required: Contact Guard Assist Distance (Feet) 131 Assistive Devices Assistive Device Gait Belt,Front Wheeled Walker Gait Deviations General Gait Pattern Antalgic,Decreased Feet Clearance Factors Limiting Gait Function Factors Limiting Gait Function Decreased Activity Tolerance, Decreased Strength,Limited Range of Motion,Pain PT-OP-J Posture/Palpation/Skin Start: 11/23/24 08:05 Freq: Status: Active Protocol: Document 11/23/24 14:31 NM (Rec: 11/23/24 15:59 NM [id number]) Palpation Assessment Location L knee Palpation Findings Edema,Tenderness Palpation Details Swelling present around knee, calf and thigh; will measure next session Tenderness in quad, hamstring Skin Assessment Incisional Assessment Incision Appearance/Comments Incision covered by intact bandage. No bleeding or drainage evident through bandage Other Assessments Skin Assessment Comments Swelling in LLE compared to RLE but no signs or symptoms of infection or DVT PT-OP-K Range of Motion Start: 11/23/24 08:05 Freq: Status: Active Protocol: Document 12/21/24 12:59 NM (Rec: 12/21/24 13:50 NM [id number]) Knee Goniometric Range of Motion Knee Right Flexion Active (degrees) 124 Extension Active (degrees) 0 Left Flexion Active (degrees) 116 Extension Active (degrees) 2 Extension Passive (degrees) 0 Comments limited by pain PT-OP-M Strength Start: 11/23/24 08:05 Freq: Status: Active Protocol: Document 12/21/24 12:59 NM (Rec: 12/21/24 13:50 NM [id number]) Hip Strength Hip Manual Muscle Testing Right Flexion (L2) 4 Good Extension (S1) 4 Good Abduction 4 Good Adduction 4 Good External Rotation 4 Good Internal Rotation 4 Good Left Flexion (L2) 4- Good- Extension (S1) 4- Good- Abduction 4- Good- Adduction 4- Good- External Rotation 4- Good- Internal Rotation 4- Good- Comments limited by pain Knee Strength Knee Manual Muscle Testing Right Flexion (S2) 4 Good Extension (L3) 4 Good Left Flexion (S2) 3+ Fair+ Extension (L3) 3+ Fair+ Comments 12/21/24: pain with resisted flex/ext IE: 3-/5 MMT, limited by pain; did not assess with resistance to protect surgical repair PT-OP-Q Treatments Start: 11/23/24 08:05 Freq: Status: Active Protocol: Document 12/26/24 10:21 AB (Rec: 12/26/24 16:46 AB [id number]) Gym Equipment Shuttle Recovery unilateral Details 37# Reps/Time X 15 B squat Resistance 75# (3 navy) Reps/Time 2x15 Therapeutic Exercises Supine Exercises SLR Supine Exercise Name HEP review Side left Reps/Minutes 10 Comments post manual and HS stretch stretches Supine Exercise Name HS Side left Reps/Minutes 60 sec X 2 Standing Exercises terminal knee extension Side left Resistance level 4 band Reps/Minutes X5 with therapist X 10 with ( seated) Comments verbal cues Gait Training Gait Activity spc Level of Assistance SBA, to CGA Surface stable Distance/Duration 9 min Comments focus on using SPC correctly through turns. Family ed rationale of using SPC right UE Manual Therapy Treatment Consent Patient gave verbal consent for manual Yes treatment Soft Tissue Mobilization scar mobility Body Location scar Mobilization Type Rolling,Other Intensity/Depth Superficial Body Position Hooklying Comments No scabs present but adhesions along scar especially distally. Completely intact, no redness around scar. Rolling and lfiting L knee Body Location hamstring Mobilization Type Cross-Friction,Rolling, Strumming Intensity/Depth Moderate Body Position Hooklying Comments prior to HS stretch and quad strengthening. Neuro Re-Education Treatment Balance Activities TUG Details with SPC Reps/Duration 16.47 sec SLS Details without UE use Surface stable Reps/Duration 3 sec L LE X 1 PT-OP-T Assessment and Plan Start: 11/23/24 08:05 Freq: Status: Active Protocol: Document 12/26/24 10:21 AB (Rec: 12/26/24 16:46 AB [id number]) Physical Therapy Assessment Goals Four Impairment use of FWW; 2 MWT distance 131 ft with FWW Short Term Goal (STG) Pt will normalize gait mechanics using LRAD if appropriate with L knee pain < 3/10 in order to demonstrate improved tolerance for gait and decreased fall risk 12/21/24: step through pattern with FWW; CGA and moderate cueing with spc, needs cueing for sequencing/placement/ safety but no increased pain STG Duration 6 weeks PROGRESSING 12/21 Card Grinder Goal (LTG) Pt will be able to complete 6 MWT >1100 ft (pre-op 6 MWT distance) in order to demonstrate improved tolerance for family ambulation outings LTG Duration 12 weeks Three Impairment needs assist with transfers Short Term Goal (STG) Pt will be IND with bed transfers in order to demonstrate increased mobility 12/21/24: pt IND with bed mobility STG Duration 5 weeks MET 12/21 Nursing Home Goal (LTG) Pt will be able be able to complete 30 sec sit to stand test within age-related norm in order to demonstrate improved strength and endurance needed for cars and toilet/chair transfers LTG Duration 12 weeks Two Impairment L knee strength impaired Short Term Goal (STG) Pt will increase L knee flex/ ext and global L hip strength to at least 4-/5 in order to demonstrate improved strength for gait, transfers, and stairs 12/21/24: 3+/5 MMT knee flex/ ext, pain w/ flex/ext STG Duration 8 weeks PROGRESSING 12/21 Card Grinder Goal (LTG) Pt will increase L knee flex/ ext and global L hip strength to at least 4/5 in order to demonstrate improved strength for gait, transfers, and stairs LTG Duration 12 weeks One Impairment L knee ROM lacking 10 deg ext to 107 deg flex Short Term Goal (STG) Pt will improve L knee ext to least lacking 5 deg and L knee flexion to at least 115 deg in order to improve ROM for gait and transfers 12/21/24: lacking 2 deg ext, 116 deg flex STG Duration 6 weeks MET 12/21 Card Grinder Goal (LTG) Pt will improve L knee ext to lacking 2 deg or less and L knee flexion AROM to at least 120 deg in order to improve ROM for gait and transfers LTG Duration 12 weeks Assessment Summary Assessment L knee lacking 3 deg ext post manual and exercise. Patient rating L knee pain 4-5/10 end of session ambulating with FWW . Physical Therapy Plan Frequency and Duration Frequency of Treatment 2x/Week Duration of treatment (weeks) 12 Plan of Care Start Date 11/23/24 Plan of Care End Date 02/16/25 Next Visit Focus/Plan Next Note Type Treatment Note Next Visit Plan spc training/and 4 wheel walker training (based on SLS, Coyle, pain levels- if safe to transition to spc)- needs transfer training c/ spc, STS from elevated ht to std chair, leg press/slider squat, side steps c/ band, SLS and TUG to determine if appropriate to d/ c FWW. Progress knee flexion ROM- mobilizations, wall slides. Cont recumbent bike. add leg press, glute/quad strength: step up, sliders, hip 3 way. balance training Manual therapy
--- NOTE | 2024-12-28 16:39 | PT.OTN ---
Current Diagnoses Unilateral primary osteoarthritis, left knee (12/28/24) Stiffness of left knee, not elsewhere classified (12/28/24) Other lack of coordination (12/28/24) Weakness (12/28/24) Physical Therapy Treatment Note PT-OP-A Visit Information Start: 11/23/24 08:05 Freq: Status: Active Protocol: Document 12/28/24 12:55 AB (Rec: 12/28/24 16:38 AB [id number]) Out-Patient Physical Therapy Visit Information Visit Information Visit Type Treatment Note Visit Note KX after 19 visits Aye present Visit Start Time 13:47 Visit Stop Time 14:32 Visit Number 11 Number of ELECTRICAL AND INSTRUMENTATION MANAGER Visits 1 Evaluation Information Evaluation Date 11/23/24 Precautions Precautions L TKA 11/15/24; WBAT w/ FWW PT-OP-B Current Condition Start: 11/23/24 08:05 Freq: Status: Active Protocol: Document 11/23/24 14:31 NM (Rec: 11/23/24 15:59 NM [id number]) Current Condition History of Current Condition Onset Date DOS 11/15/24 Current Complaints pain, swelling, weakness, poor mobility, balance History of Current Condition Pt presents following L TKA on 11/15/24. Surgeon Dr. Conteh. Pt spent 2 days in hospital post surgery due to high heart rate, low blood pressure. Has since resolved. Pt also recently when to ED due to constipation following surgery . No dizziness, lightheadedness. present at evaluation and assisting with providing hx. Pt presents in manual wheelchair due to poor activity tolerance following several appt today, brought FWW. 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 Has been using FWW for mobility since surgery. Pt has 2 steps to enter home, L hand rail; stairs in home but does not use. Lives with . Bedroom is downstairs. Has 2 week follow up next week. No falls, no knee buckling since surgery. Has been performing HEP provided by hospital. Sleeping a temporary bed or recliner at home, has had leg propped up with knee bent. Has been icing several times ea day. is concerned about pt getting up at night alone to use bathroom as concerned about falls due to pain. Has been having adult kids help with nighttime care. Has not been wearing compression socks or hose; unsure if supposed to wear compression. Prior Treatments and Tests Previous PT prior to surgery Treatment Goals Patient/Caregiver Goals walks with family, get out in the shop, lawnmower PT-OP-C Subjective Start: 11/23/24 08:05 Freq: Status: Active Protocol: Document 12/28/24 12:55 AB (Rec: 12/28/24 16:38 AB [id number]) OP-PT Subjective Patient Comments Patient Comments Alex rates pain 3/10 L knee start of session. Patient requesting to know when he may return to massage therapy, and has been advised to ask MD . Patient reports having appt with Dr. Conteh tomorrow. Lacking 3 deg ext to 117 deg flexion start of session. PT-OP-D Balance Start: 11/23/24 08:05 Freq: Status: Active Protocol: Document 12/26/24 10:21 AB (Rec: 12/26/24 16:47 AB [id number]) Balance Tests Single Limb Standing Single Limb- Left 3 sec PT-OP-E Functional Tests Start: 12/26/24 16:48 Freq: Status: Active Protocol: Document 12/26/24 10:21 AB (Rec: 12/26/24 16:49 AB [id number]) Functional Tests Timed Up and Go (TUG) Score 16.47 seconds Comments Using [facility] [place]UG Impairment Rating 60 to <80% Impaired (Score 16- 17) PT-OP-F Manual Assessment Start: 11/23/24 08:05 Freq: Status: Active Protocol: Document 11/23/24 14:31 NM (Rec: 11/23/24 15:59 NM [id number]) Manual Assessments Soft Tissue Assessment Soft Tissue Mobility Assessment Tightness and tenderness of L calf, hamstring, and hip flexors Joint Mobility Assessment Joint Mobility Assessment Decreased L knee PROM and AROM secondary to pain, swelling, and weakness. Limited active ankle mobility and hip mobility due to pain PT-OP-G Mobility & Gait Start: 11/23/24 08:05 Freq: Status: Active Protocol: Document 11/23/24 14:31 NM (Rec: 11/23/24 15:59 NM [id number]) OP Mobility Evaluation Bed Mobility Rolling Able to roll IND Supine to and from Sit Needs min A to lift LLE onto table but able to initiate 75% of motion Close SBA to assist with lowering LLE from table due to pain Transfers Sit to Stand CGA; Requires BUE assist to stand to FWW, 1 hand assist to sit. Maintains BLE equidistant, needs cueing for eccentric control OP Gait Assessment Gait Gait Assistance Required: Contact Guard Assist Distance (Feet) 131 Assistive Devices Assistive Device Gait Belt,Front Wheeled Walker Gait Deviations General Gait Pattern Antalgic,Decreased Feet Clearance Factors Limiting Gait Function Factors Limiting Gait Function Decreased Activity Tolerance, Decreased Strength,Limited Range of Motion,Pain PT-OP-J Posture/Palpation/Skin Start: 11/23/24 08:05 Freq: Status: Active Protocol: Document 11/23/24 14:31 NM (Rec: 11/23/24 15:59 NM [id number]) Palpation Assessment Location L knee Palpation Findings Edema,Tenderness Palpation Details Swelling present around knee, calf and thigh; will measure next session Tenderness in quad, hamstring Skin Assessment Incisional Assessment Incision Appearance/Comments Incision covered by intact bandage. No bleeding or drainage evident through bandage Other Assessments Skin Assessment Comments Swelling in LLE compared to RLE but no signs or symptoms of infection or DVT PT-OP-K Range of Motion Start: 11/23/24 08:05 Freq: Status: Active Protocol: Document 12/21/24 12:59 NM (Rec: 12/21/24 13:50 NM [id number]) Knee Goniometric Range of Motion Knee Right Flexion Active (degrees) 124 Extension Active (degrees) 0 Left Flexion Active (degrees) 116 Extension Active (degrees) 2 Extension Passive (degrees) 0 Comments limited by pain PT-OP-M Strength Start: 11/23/24 08:05 Freq: Status: Active Protocol: Document 12/21/24 12:59 NM (Rec: 12/21/24 13:50 NM [id number]) Hip Strength Hip Manual Muscle Testing Right Flexion (L2) 4 Good Extension (S1) 4 Good Abduction 4 Good Adduction 4 Good External Rotation 4 Good Internal Rotation 4 Good Left Flexion (L2) 4- Good- Extension (S1) 4- Good- Abduction 4- Good- Adduction 4- Good- External Rotation 4- Good- Internal Rotation 4- Good- Comments limited by pain Knee Strength Knee Manual Muscle Testing Right Flexion (S2) 4 Good Extension (L3) 4 Good Left Flexion (S2) 3+ Fair+ Extension (L3) 3+ Fair+ Comments 12/21/24: pain with resisted flex/ext IE: 3-/5 MMT, limited by pain; did not assess with resistance to protect surgical repair PT-OP-Q Treatments Start: 11/23/24 08:05 Freq: Status: Active Protocol: Document 12/28/24 12:55 AB (Rec: 12/28/24 16:38 AB [id number]) Therapeutic Exercises Supine Exercises SLR Supine Exercise Name HEP review Side left Reps/Minutes 10 Comments post manual and HS stretch heel slide Supine Exercise Name AROM knee flex Side left Reps/Minutes 10 Comments pre manual Sitting Exercises seated hip abd with band Sitting Exercise Name SLS L LE without UE use 2 sec post gait training with FWW post Side bilateral Resistance Level 4 band Reps/Minutes one min X 1 Standing Exercises terminal knee extension Side left Resistance level 4 band Reps/Minutes X10 Comments verbal cues Gait Training Gait Activity 4 wheeled walker Device Used 4 wheeled walker Level of Assistance supervision to CGA Surface indoors and outdoors Distance/Duration 12 min Treatment Focus Locking and unlocking walker properly, hills, curbs. Comments Verbal cues first 2 trials sit to and from stand for brakes, but performed without cues final 3 trials. Verbal cues for locking brakes and sequence ascending and descending curbs, and decelerating down hill ( braking feature), due to only one trial.) Manual Therapy Treatment Soft Tissue Mobilization L knee Body Location hamstring and quad L LE Mobilization Type Cross-Friction,Instrument Assisted,Myofascial Release, Rolling,Strumming Intensity/Depth Moderate Body Position Hooklying Comments and superficial dycem used for myofascial PT-OP-T Assessment and Plan Start: 11/23/24 08:05 Freq: Status: Active Protocol: Document 12/28/24 12:55 AB (Rec: 12/28/24 16:38 AB [id number]) Physical Therapy Assessment Goals Four Impairment use of FWW; 2 MWT distance 131 ft with FWW Short Term Goal (STG) Pt will normalize gait mechanics using LRAD if appropriate with L knee pain < 3/10 in order to demonstrate improved tolerance for gait and decreased fall risk 12/21/24: step through pattern with FWW; CGA and moderate cueing with spc, needs cueing for sequencing/placement/ safety but no increased pain STG Duration 6 weeks PROGRESSING 12/21 Setter Cold Rolling Machine Goal (LTG) Pt will be able to complete 6 MWT >1100 ft (pre-op 6 MWT distance) in order to demonstrate improved tolerance for family ambulation outings LTG Duration 12 weeks Three Impairment needs assist with transfers Short Term Goal (STG) Pt will be IND with bed transfers in order to demonstrate increased mobility 12/21/24: pt IND with bed mobility STG Duration 5 weeks MET 12/21 Setter Cold Rolling Machine Goal (LTG) Pt will be able be able to complete 30 sec sit to stand test within age-related norm in order to demonstrate improved strength and endurance needed for cars and toilet/chair transfers LTG Duration 12 weeks Two Impairment L knee strength impaired Short Term Goal (STG) Pt will increase L knee flex/ ext and global L hip strength to at least 4-/5 in order to demonstrate improved strength for gait, transfers, and stairs 12/21/24: 3+/5 MMT knee flex/ ext, pain w/ flex/ext STG Duration 8 weeks PROGRESSING 12/21 Detention Goal (LTG) Pt will increase L knee flex/ ext and global L hip strength to at least 4/5 in order to demonstrate improved strength for gait, transfers, and stairs LTG Duration 12 weeks One Impairment L knee ROM lacking 10 deg ext to 107 deg flex Short Term Goal (STG) Pt will improve L knee ext to least lacking 5 deg and L knee flexion to at least 115 deg in order to improve ROM for gait and transfers 12/21/24: lacking 2 deg ext, 116 deg flex STG Duration 6 weeks MET 12/21 Detention Goal (LTG) Pt will improve L knee ext to lacking 2 deg or less and L knee flexion AROM to at least 120 deg in order to improve ROM for gait and transfers LTG Duration 12 weeks Assessment Summary Assessment Patient rates pain 4/10 L knee end of session. Good return demonstration for locking and unlocking brakes with sit to stand post first 2 trials. Locking brakes prior to ascending and descending curb trialed once and verbal cues used, also, using brake feature to decelerate on hill also used only once with verbal cues. Patient advised to have into session to review and for and patient to determine if getting a 4 wheeled walker in and out of the home will be manageable. Physical Therapy Plan Frequency and Duration Frequency of Treatment 2x/Week Duration of treatment (weeks) 12 Plan of Care Start Date 11/23/24 Plan of Care End Date 02/16/25 Next Visit Focus/Plan Next Note Type Treatment Note Next Visit Plan continue spc training/and 4 wheel walker training (based on SLS, Coyle, pain levels- if safe to transition to spc)- needs transfer training c/ spc, STS from elevated ht to std chair, leg press/slider squat, side steps c/ band, SLS and TUG to determine if appropriate to d/c FWW. Progress knee flexion ROM- mobilizations, wall slides. Cont recumbent bike. add leg press, glute/quad strength: step up, sliders, hip 3 way. balance training Manual therapy
--- NOTE | 2025-01-02 17:32 | PT.OTN ---
Current Diagnoses Unilateral primary osteoarthritis, left knee (01/02/25) Stiffness of left knee, not elsewhere classified (01/02/25) Other lack of coordination (01/02/25) Weakness (01/02/25) Physical Therapy Treatment Note PT-OP-A Visit Information Start: 11/23/24 08:05 Freq: Status: Active Protocol: Document 01/02/25 13:46 NBM (Rec: 01/02/25 14:42 NBM [id number]) Out-Patient Physical Therapy Visit Information Visit Information Visit Type Treatment Note Visit Note KX after 19 visits Aye present Visit Start Time 13:47 Visit Stop Time 14:37 Visit Number 12 Number of [employer] Visits 3 Evaluation Information Evaluation Date 11/23/24 Precautions Precautions L TKA 11/15/24; WBAT w/ FWW PT-OP-B Current Condition Start: 11/23/24 08:05 Freq: Status: Active Protocol: Document 11/23/24 14:31 NM (Rec: 11/23/24 15:59 NM [id number]) Current Condition History of Current Condition Onset Date DOS 11/15/24 Current Complaints pain, swelling, weakness, poor mobility, balance History of Current Condition Pt presents following L TKA on 11/15/24. Surgeon Dr. Conteh. Pt spent 2 days in hospital post surgery due to high heart rate, low blood pressure. Has since resolved. Pt also recently when to ED due to constipation following surgery . No dizziness, lightheadedness. present at evaluation and assisting with providing hx. Pt presents in manual wheelchair due to poor activity tolerance following several appt today, brought FWW. 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 Has been using FWW for mobility since surgery. Pt has 2 steps to enter home, L hand rail; stairs in home but does not use. Lives with . Bedroom is downstairs. Has 2 week follow up next week. No falls, no knee buckling since surgery. Has been performing HEP provided by hospital. Sleeping a temporary bed or recliner at home, has had leg propped up with knee bent. Has been icing several times ea day. is concerned about pt getting up at night alone to use bathroom as concerned about falls due to pain. Has been having adult kids help with nighttime care. Has not been wearing compression socks or hose; unsure if supposed to wear compression. Prior Treatments and Tests Previous PT prior to surgery Treatment Goals Patient/Caregiver Goals walks with family, get out in the shop, lawnmower PT-OP-C Subjective Start: 11/23/24 08:05 Freq: Status: Active Protocol: Document 01/02/25 13:46 NBM (Rec: 01/02/25 14:42 NBM [id number]) OP-PT Subjective Patient Comments Patient Comments Alex reports he was cleared by oncologist not to return for check up for one year. He saw orthopedist last week and spouse Aye reports he was cleared of any restrictions. PT-OP-D Balance Start: 11/23/24 08:05 Freq: Status: Active Protocol: Document 12/26/24 10:21 AB (Rec: 12/26/24 16:47 AB [id number]) Balance Tests Single Limb Standing Single Limb- Left 3 sec PT-OP-E Functional Tests Start: 12/26/24 16:48 Freq: Status: Active Protocol: Document 12/26/24 10:21 AB (Rec: 12/26/24 16:49 AB [id number]) Functional Tests Timed Up and Go (TUG) Score 16.[address] [facility] TUG Impairment Rating 60 to <80% Impaired (Score 16- 17) PT-OP-F Manual Assessment Start: 11/23/24 08:05 Freq: Status: Active Protocol: Document 11/23/24 14:31 NM (Rec: 11/23/24 15:59 NM [id number]) Manual Assessments Soft Tissue Assessment Soft Tissue Mobility Assessment Tightness and tenderness of L calf, hamstring, and hip flexors Joint Mobility Assessment Joint Mobility Assessment Decreased L knee PROM and AROM secondary to pain, swelling, and weakness. Limited active ankle mobility and hip mobility due to pain PT-OP-G Mobility & Gait Start: 11/23/24 08:05 Freq: Status: Active Protocol: Document 11/23/24 14:31 NM (Rec: 11/23/24 15:59 NM [id number]) OP Mobility Evaluation Bed Mobility Rolling Able to roll IND Supine to and from Sit Needs min A to lift LLE onto table but able to initiate 75% of motion Close SBA to assist with lowering LLE from table due to pain Transfers Sit to Stand CGA; Requires BUE assist to stand to FWW, 1 hand assist to sit. Maintains BLE equidistant, needs cueing for eccentric control OP Gait Assessment Gait Gait Assistance Required: Contact Guard Assist Distance (Feet) 131 Assistive Devices Assistive Device Gait Belt,Front Wheeled Walker Gait Deviations General Gait Pattern Antalgic,Decreased Feet Clearance Factors Limiting Gait Function Factors Limiting Gait Function Decreased Activity Tolerance, Decreased Strength,Limited Range of Motion,Pain PT-OP-J Posture/Palpation/Skin Start: 11/23/24 08:05 Freq: Status: Active Protocol: Document 11/23/24 14:31 NM (Rec: 11/23/24 15:59 NM [id number]) Palpation Assessment Location L knee Palpation Findings Edema,Tenderness Palpation Details Swelling present around knee, calf and thigh; will measure next session Tenderness in quad, hamstring Skin Assessment Incisional Assessment Incision Appearance/Comments Incision covered by intact bandage. No bleeding or drainage evident through bandage Other Assessments Skin Assessment Comments Swelling in LLE compared to RLE but no signs or symptoms of infection or DVT PT-OP-K Range of Motion Start: 11/23/24 08:05 Freq: Status: Active Protocol: Document 12/21/24 12:59 NM (Rec: 12/21/24 13:50 NM [id number]) Knee Goniometric Range of Motion Knee Right Flexion Active (degrees) 124 Extension Active (degrees) 0 Left Flexion Active (degrees) 116 Extension Active (degrees) 2 Extension Passive (degrees) 0 Comments limited by pain PT-OP-M Strength Start: 11/23/24 08:05 Freq: Status: Active Protocol: Document 12/21/24 12:59 NM (Rec: 12/21/24 13:50 NM [id number]) Hip Strength Hip Manual Muscle Testing Right Flexion (L2) 4 Good Extension (S1) 4 Good Abduction 4 Good Adduction 4 Good External Rotation 4 Good Internal Rotation 4 Good Left Flexion (L2) 4- Good- Extension (S1) 4- Good- Abduction 4- Good- Adduction 4- Good- External Rotation 4- Good- Internal Rotation 4- Good- Comments limited by pain Knee Strength Knee Manual Muscle Testing Right Flexion (S2) 4 Good Extension (L3) 4 Good Left Flexion (S2) 3+ Fair+ Extension (L3) 3+ Fair+ Comments 12/21/24: pain with resisted flex/ext IE: 3-/5 MMT, limited by pain; did not assess with resistance to protect surgical repair PT-OP-Q Treatments Start: 11/23/24 08:05 Freq: Status: Active Protocol: Document 01/02/25 13:46 [facility] (Rec: 01/02/25 14:42 [facility] [id number]) Cardio Equipment Recumbent Bicycle Duration (Minutes) 10 Resistance 0>5 minute 3 Seat Position 8>6 in first minute Other full rot fwd/bwd; cuedLe alignment, mild L knee pain reported w/ max flex Therapeutic Exercises Sitting Exercises seated hip abd with band Side bilateral Resistance Level 2 band Reps/Minutes 2x15 Comments cues for eccentric control sit to stand Sitting Exercise Name c/ fwd trunk lean, SPC in RUE Resistance Lvl 2 Tb above knees Reps/Minutes 5 ea w and wo Tb Comments cued form, feet aligned and underneath; CGA wo Tb, Moris for stand w/ Tb Standing Exercises terminal knee extension Standing Exercise Name HEP review 1. no hip flexion 2 . w/ hip extension Side left Resistance level 4 band Reps/Minutes X10 Comments verbal cues to drive heel into ground Gait Training Gait Activity 4 wheeled walker Device Used 4 wheeled walker Level of Assistance SBA Surface indoors Distance/Duration between activities Comments pt demos improved upright posture and less B UE support. spc Device Used SPC in RUE Level of Assistance SBA, to CGA Surface stable Distance/Duration 281 ft Treatment Focus sequencing, safety, turns, transitions Comments focus on using SPC correctly through turns - improves self- awareness. Cues for scuffing feet bilaterally - improves. PT-OP-T Assessment and Plan Start: 11/23/24 08:05 Freq: Status: Active Protocol: Document 01/02/25 13:46 [facility] (Rec: 01/02/25 14:42 [facility] [id number]) Physical Therapy Assessment Goals Four Impairment use of FWW; 2 MWT distance 131 ft with FWW Short Term Goal (STG) Pt will normalize gait mechanics using LRAD if appropriate with L knee pain < 3/10 in order to demonstrate improved tolerance for gait and decreased fall risk 12/21/24: step through pattern with FWW; CGA and moderate cueing with spc, needs cueing for sequencing/placement/ safety but no increased pain 01/02/25: Pt requires cueing for ambulation w/ SPC in RUE for scuffing feet, placement w / turns R>L, and sit to stands - improves from mod cues to min cues by end of session. STG Duration 6 weeks PROGRESSING 12/21 Care Home Goal (LTG) Pt will be able to complete 6 MWT >1100 ft (pre-op 6 MWT distance) in order to demonstrate improved tolerance for family ambulation outings LTG Duration 12 weeks Three Impairment needs assist with transfers Short Term Goal (STG) Pt will be IND with bed transfers in order to demonstrate increased mobility 12/21/24: pt IND with bed mobility STG Duration 5 weeks MET 12/21 Third Steel Pourer Goal (LTG) Pt will be able be able to complete 30 sec sit to stand test within age-related norm in order to demonstrate improved strength and endurance needed for cars and toilet/chair transfers LTG Duration 12 weeks Two Impairment L knee strength impaired Short Term Goal (STG) Pt will increase L knee flex/ ext and global L hip strength to at least 4-/5 in order to demonstrate improved strength for gait, transfers, and stairs 12/21/24: 3+/5 MMT knee flex/ ext, pain w/ flex/ext STG Duration 8 weeks PROGRESSING 12/21 Care Home Goal (LTG) Pt will increase L knee flex/ ext and global L hip strength to at least 4/5 in order to demonstrate improved strength for gait, transfers, and stairs LTG Duration 12 weeks One Impairment L knee ROM lacking 10 deg ext to 107 deg flex Short Term Goal (STG) Pt will improve L knee ext to least lacking 5 deg and L knee flexion to at least 115 deg in order to improve ROM for gait and transfers 12/21/24: lacking 2 deg ext, 116 deg flex STG Duration 6 weeks MET 12/21 Care Home Goal (LTG) Pt will improve L knee ext to lacking 2 deg or less and L knee flexion AROM to at least 120 deg in order to improve ROM for gait and transfers LTG Duration 12 weeks Assessment Summary Assessment Treatment focus on gait training with SPC in RUE, especially turns and sit to stands. Pt requires cueing for ambulation w/ SPC in RUE for scuffing feet, placement w/ turns R>L, and sit to stands - improves from mod cues to min cues by end of session.Pt improves form with Terminal Knee extension ex and can teach back after cueing and repetition. Pt can perform STS w/ SPC in RUE x5 CGA but requires Moris for standing with addition of Lvl 2 Tb above knees. Physical Therapy Plan Frequency and Duration Frequency of Treatment 2x/Week Duration of treatment (weeks) 12 Plan of Care Start Date 11/23/24 Plan of Care End Date 02/16/25 Next Visit Focus/Plan Next Note Type Treatment Note Next Visit Plan continue spc training/and 4 wheel walker training (based on SLS, Coyle, pain levels- if safe to transition to spc)- needs transfer training c/ spc, STS from elevated ht to std chair, leg press/slider squat, side steps c/ band, SLS and TUG to determine if appropriate to d/c FWW. Progress knee flexion ROM- mobilizations, wall slides. Cont recumbent bike. add leg press, glute/quad strength: step up, sliders, hip 3 way. balance training Manual therapy
--- NOTE | 2025-01-04 15:51 | PT.OTN ---
Current Diagnoses Unilateral primary osteoarthritis, left knee (01/04/25) Stiffness of left knee, not elsewhere classified (01/04/25) Other lack of coordination (01/04/25) Weakness (01/04/25) Physical Therapy Treatment Note PT-OP-A Visit Information Start: 11/23/24 08:05 Freq: Status: Active Protocol: Document 01/04/25 13:47 NM (Rec: 01/04/25 14:34 NM [id number]) Out-Patient Physical Therapy Visit Information Visit Information Visit Type Treatment Note Visit Note KX after 19 visits Aye present Visit Start Time 13:48 Visit Stop Time 14:30 Visit Number 13 (03/17 PN) Evaluation Information Evaluation Date 11/23/24 Precautions Precautions L TKA 11/15/24; WBAT w/ FWW PT-OP-B Current Condition Start: 11/23/24 08:05 Freq: Status: Active Protocol: Document 11/23/24 14:31 NM (Rec: 11/23/24 15:59 NM [id number]) Current Condition History of Current Condition Onset Date DOS 11/15/24 Current Complaints pain, swelling, weakness, poor mobility, balance History of Current Condition Pt presents following L TKA on 11/15/24. Surgeon Dr. Conteh. Pt spent 2 days in hospital post surgery due to high heart rate, low blood pressure. Has since resolved. Pt also recently when to ED due to constipation following surgery . No dizziness, lightheadedness. present at evaluation and assisting with providing hx. Pt presents in manual wheelchair due to poor activity tolerance following several appt today, brought FWW. 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 Has been using FWW for mobility since surgery. Pt has 2 steps to enter home, L hand rail; stairs in home but does not use. Lives with . Bedroom is downstairs. Has 2 week follow up next week. No falls, no knee buckling since surgery. Has been performing HEP provided by hospital. Sleeping a temporary bed or recliner at home, has had leg propped up with knee bent. Has been icing several times ea day. is concerned about pt getting up at night alone to use bathroom as concerned about falls due to pain. Has been having adult kids help with nighttime care. Has not been wearing compression socks or hose; unsure if supposed to wear compression. Prior Treatments and Tests Previous PT prior to surgery Treatment Goals Patient/Caregiver Goals walks with family, get out in the shop, lawnmower PT-OP-C Subjective Start: 11/23/24 08:05 Freq: Status: Active Protocol: Document 01/04/25 13:47 NM (Rec: 01/04/25 14:34 NM [id number]) OP-PT Subjective Patient Comments Patient Comments Presents with spc and FWW. present. Reports 4/10 pain in L quad, anterior knee. Worse with activity. Wants to go on lawnmower but does not want pt to due to balance . and pt state that have been doing exercises several times every day. PT-OP-D Balance Start: 11/23/24 08:05 Freq: Status: Active Protocol: Document 12/26/24 10:21 AB (Rec: 12/26/24 16:47 AB [id number]) Balance Tests Single Limb Standing Single Limb- Left 3 sec PT-OP-E Functional Tests Start: 12/26/24 16:48 Freq: Status: Active Protocol: Document 12/26/24 10:21 AB (Rec: 12/26/24 16:49 AB [id number]) Functional Tests Timed Up and Go (TUG) Score 16.47 seconds Comments Using [facility] TUG Impairment Rating 60 to <80% Impaired (Score 16- 17) PT-OP-F Manual Assessment Start: 11/23/24 08:05 Freq: Status: Active Protocol: Document 11/23/24 14:31 NM (Rec: 11/23/24 15:59 NM [id number]) Manual Assessments Soft Tissue Assessment Soft Tissue Mobility Assessment Tightness and tenderness of L calf, hamstring, and hip flexors Joint Mobility Assessment Joint Mobility Assessment Decreased L knee PROM and AROM secondary to pain, swelling, and weakness. Limited active ankle mobility and hip mobility due to pain PT-OP-G Mobility & Gait Start: 11/23/24 08:05 Freq: Status: Active Protocol: Document 11/23/24 14:31 NM (Rec: 11/23/24 15:59 NM [id number]) OP Mobility Evaluation Bed Mobility Rolling Able to roll IND Supine to and from Sit Needs min A to lift LLE onto table but able to initiate 75% of motion Close SBA to assist with lowering LLE from table due to pain Transfers Sit to Stand CGA; Requires BUE assist to stand to FWW, 1 hand assist to sit. Maintains BLE equidistant, needs cueing for eccentric control OP Gait Assessment Gait Gait Assistance Required: Contact Guard Assist Distance (Feet) 131 Assistive Devices Assistive Device Gait Belt,Front Wheeled Walker Gait Deviations General Gait Pattern Antalgic,Decreased Feet Clearance Factors Limiting Gait Function Factors Limiting Gait Function Decreased Activity Tolerance, Decreased Strength,Limited Range of Motion,Pain PT-OP-J Posture/Palpation/Skin Start: 11/23/24 08:05 Freq: Status: Active Protocol: Document 11/23/24 14:31 NM (Rec: 11/23/24 15:59 NM [id number]) Palpation Assessment Location L knee Palpation Findings Edema,Tenderness Palpation Details Swelling present around knee, calf and thigh; will measure next session Tenderness in quad, hamstring Skin Assessment Incisional Assessment Incision Appearance/Comments Incision covered by intact bandage. No bleeding or drainage evident through bandage Other Assessments Skin Assessment Comments Swelling in LLE compared to RLE but no signs or symptoms of infection or DVT PT-OP-K Range of Motion Start: 11/23/24 08:05 Freq: Status: Active Protocol: Document 12/21/24 12:59 NM (Rec: 12/21/24 13:50 NM [id number]) Knee Goniometric Range of Motion Knee Right Flexion Active (degrees) 124 Extension Active (degrees) 0 Left Flexion Active (degrees) 116 Extension Active (degrees) 2 Extension Passive (degrees) 0 Comments limited by pain PT-OP-M Strength Start: 11/23/24 08:05 Freq: Status: Active Protocol: Document 12/21/24 12:59 NM (Rec: 12/21/24 13:50 NM [id number]) Hip Strength Hip Manual Muscle Testing Right Flexion (L2) 4 Good Extension (S1) 4 Good Abduction 4 Good Adduction 4 Good External Rotation 4 Good Internal Rotation 4 Good Left Flexion (L2) 4- Good- Extension (S1) 4- Good- Abduction 4- Good- Adduction 4- Good- External Rotation 4- Good- Internal Rotation 4- Good- Comments limited by pain Knee Strength Knee Manual Muscle Testing Right Flexion (S2) 4 Good Extension (L3) 4 Good Left Flexion (S2) 3+ Fair+ Extension (L3) 3+ Fair+ Comments 2/13/25: pain with resisted flex/ext IE: 3-/5 MMT, limited by pain; did not assess with resistance to protect surgical repair PT-OP-Q Treatments Start: 11/23/24 08:05 Freq: Status: Active Protocol: Document 01/04/25 13:47 NM (Rec: 01/04/25 14:34 NM [id number]) Gym Equipment Shuttle Recovery B squat Details increased knee flexion at last set Resistance 75# (2 navy) Reps/Time 3x10 Therapeutic Exercises Supine Exercises heel slide Supine Exercise Name AROM knee flex Side left Reps/Minutes 10 Comments post manual Sitting Exercises sit to stand Sitting Exercise Name several reps during session c/ spc in RUE Reps/Minutes 3 Comments CGA and needs 1 UE assist from chair c/ spc Standing Exercises knee flexion mobilization Standing Exercise Name HEP Side left Equipment Used on stairs Reps/Minutes 6x10 hold Comments cued increased ROM ea time; holds R rail for carryover at home side steps Standing Exercise Name HEP Side bilateral Resistance level 2 band at thighs > shins Equipment Used B hand support on counter Reps/Minutes 3x10 ft Comments close SBA Gait Training Gait Activity TUG Device Used CGA- needs 1 hand assist to rise from chair Comments 16.9 sec (pt cane with tripoint tip) vs 14.5 sec ( single point cane) attempts to carry spc around cone for first attempt spc Device Used SPC in RUE Level of Assistance SBA, to CGA Surface stable Treatment Focus sequencing, safety, turns, transitions Comments Focus on using SPC correctly through turns and sequencing as ambulating as has tendency to take 2-4 steps before replacing cane on ground especially as pt becomes distracted with talking. cueing needed for cane placement next to body instead of behind pt- pt states placing to avoid feeling like going backward Trialed true spc- pt demos greater tendency to actually place on ground and sequence correctly. cueing prn for maintain spc flat Manual Therapy Treatment Consent Patient gave verbal consent for manual Yes treatment Soft Tissue Mobilization L knee Body Location hamstring and quad L LE, calf Mobilization Type Cross-Friction,Instrument Assisted,Myofascial Release, Rolling,Strumming Intensity/Depth Moderate Body Position Hooklying Comments 112 deg flex pre manual, 116 deg post manual Joint Mobilizations L knee Joint patellar, tibiofemoral Direction inf glide; slight distraction with AP/PA glides and overpressure into flex Grade III Body Position Hooklying Reps/Duration 4x30 ea Comments Monitored for pain. Improved to 116 deg flexion post manual PT-OP-T Assessment and Plan Start: 11/23/24 08:05 Freq: Status: Active Protocol: Document 01/04/25 13:47 NM (Rec: 01/04/25 14:34 NM [id number]) Physical Therapy Assessment Goals Four Impairment use of FWW; 2 MWT distance 131 ft with FWW Short Term Goal (STG) Pt will normalize gait mechanics using LRAD if appropriate with L knee pain < 3/10 in order to demonstrate improved tolerance for gait and decreased fall risk 12/21/24: step through pattern with FWW; CGA and moderate cueing with spc, needs cueing for sequencing/placement/ safety but no increased pain 01/02/25: Pt requires cueing for ambulation w/ SPC in RUE for scuffing feet, placement w / turns R>L, and sit to stands - improves from mod cues to min cues by end of session. STG Duration 6 weeks PROGRESSING 12/21 Long-Term Goal (LTG) Pt will be able to complete 6 MWT >1100 ft (pre-op 6 MWT distance) in order to demonstrate improved tolerance for family ambulation outings LTG Duration 12 weeks Three Impairment needs assist with transfers Short Term Goal (STG) Pt will be IND with bed transfers in order to demonstrate increased mobility 12/21/24: pt IND with bed mobility STG Duration 5 weeks MET 12/21 Long-Term Goal (LTG) Pt will be able be able to complete 30 sec sit to stand test within age-related norm in order to demonstrate improved strength and endurance needed for cars and toilet/chair transfers LTG Duration 12 weeks Two Impairment L knee strength impaired Short Term Goal (STG) Pt will increase L knee flex/ ext and global L hip strength to at least 4-/5 in order to demonstrate improved strength for gait, transfers, and stairs 12/21/24: 3+/5 MMT knee flex/ ext, pain w/ flex/ext STG Duration 8 weeks 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 12/21 [employer]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) Pt will increase L knee flex/ ext and global L hip strength to at least 4/5 in order to demonstrate improved strength for gait, transfers, and stairs LTG Duration 12 weeks One Impairment L knee ROM lacking 10 deg ext to 107 deg flex Short Term Goal (STG) Pt will improve L knee ext to least lacking 5 deg and L knee flexion to at least 115 deg in order to improve ROM for gait and transfers 12/21/24: lacking 2 deg ext, 116 deg flex STG Duration 6 weeks 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 PT educated pt and on performing HEP as prescribed to avoid increased swelling and muscle fatigue. STS still challenging from standard chair, needs 1 Ue assist and CGA to steady as rising especially with spc in hand. Good feedback for B squat on shuttle for functional knee flexion and glute/quad strength. Initiated knee stair mobilization, which pt tolerated well and added to HEP. PT still has to cue pt for coordination of sequencing with cane and to maintain cane on ground as turning vs carrying cane. Pt with decreased awareness of safety limitations, so recommended against front office administrator use at home. Pt does better with true single point cane than tripoint cane. Pt TUG and demonstration in session does not indicate pt safe for spc use for household or community mobility at this time. Physical Therapy Plan Frequency and Duration Frequency of Treatment 2x/Week Duration of treatment (weeks) 12 Plan of Care Start Date 11/23/24 Plan of Care End Date 02/16/25 Therapeutic Interventions Therapeutic Interventions Balance Training,Gait Training ,Home Exercise Program,Joint Mobilizations,Manual Therapy, Neuromuscular Re-education, Orthotic/Prosthetic Management ,Patient/Caregiver Education, Self-Care/Home Management, Sensory Integration,Soft Tissue Mobilization,Taping, Therapeutic Activities, Therapeutic Exercises Modalities Cold Pack/Ice Massage,Electric Stimulation,Hot Packs, Ultrasound Next Visit Focus/Plan Next Note Type Treatment Note Next Visit Plan Assess knee flex mob on stairs . STS from chair. continue spc training/and 4 wheel walker training (based on SLS, Coyle, stairs) pain levels- if safe to transition to spc)- needs transfer training c/ spc, leg press/slider squat vs step up, hip strength and balance Manual therapy as needed for L knee ROM
--- NOTE | 2025-01-09 14:57 | PT.OTN ---
Current Diagnoses Unilateral primary osteoarthritis, left knee (01/09/25) Stiffness of left knee, not elsewhere classified (01/09/25) Other lack of coordination (01/09/25) Weakness (01/09/25) Physical Therapy Treatment Note PT-OP-A Visit Information Start: 11/23/24 08:05 Freq: Status: Active Protocol: Document 01/09/25 13:47 NM (Rec: 01/09/25 14:57 NM [id number]) Out-Patient Physical Therapy Visit Information Visit Information Visit Type Treatment Note Visit Note KX after 19 visits Aye present Visit Start Time 13:47 Visit Stop Time 14:30 Visit Number 14 (04/17 PN) Evaluation Information Evaluation Date 11/23/24 Precautions Precautions L TKA 11/15/24; WBAT w/ FWW PT-OP-B Current Condition Start: 11/23/24 08:05 Freq: Status: Active Protocol: Document 11/23/24 14:31 NM (Rec: 11/23/24 15:59 NM [id number]) Current Condition History of Current Condition Onset Date DOS 11/15/24 Current Complaints pain, swelling, weakness, poor mobility, balance History of Current Condition Pt presents following L TKA on 11/15/24. Surgeon Dr. Conteh. Pt spent 2 days in hospital post surgery due to high heart rate, low blood pressure. Has since resolved. Pt also recently when to ED due to constipation following surgery . No dizziness, lightheadedness. present at evaluation and assisting with providing hx. Pt presents in manual wheelchair due to poor activity tolerance following several appt today, brought FWW. 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 Has been using FWW for mobility since surgery. Pt has 2 steps to enter home, L hand rail; stairs in home but does not use. Lives with . Bedroom is downstairs. Has 2 week follow up next week. No falls, no knee buckling since surgery. Has been performing HEP provided by hospital. Sleeping a temporary bed or recliner at home, has had leg propped up with knee bent. Has been icing several times ea day. is concerned about pt getting up at night alone to use bathroom as concerned about falls due to pain. Has been having adult kids help with nighttime care. Has not been wearing compression socks or hose; unsure if supposed to wear compression. Prior Treatments and Tests Previous PT prior to surgery Treatment Goals Patient/Caregiver Goals walks with family, get out in the shop, lawnmower PT-OP-C Subjective Start: 11/23/24 08:05 Freq: Status: Active Protocol: Document 01/09/25 13:47 NM (Rec: 01/09/25 14:57 NM [id number]) OP-PT Subjective Patient Comments Patient Comments Pt reports stood all yesterday , so reports a little sore in his knee. He reports 3/10 pain L knee. Iced before coming today and did some warm ups ( ambulation in home, assisted squats at counter). PT-OP-D Balance Start: 11/23/24 08:05 Freq: Status: Active Protocol: Document 12/26/24 10:21 AB (Rec: 12/26/24 16:47 AB [id number]) Balance Tests Single Limb Standing Single Limb- Left 3 sec PT-OP-E Functional Tests Start: 12/26/24 16:48 Freq: Status: Active Protocol: Document 12/26/24 10:21 AB (Rec: 12/26/24 16:49 AB [id number]) Functional Tests Timed Up and Go (TUG) Score 16.47 seconds Comments Using SPC TUG Impairment Rating 60 to <80% Impaired (Score 16- 17) PT-OP-F Manual Assessment Start: 11/23/24 08:05 Freq: Status: Active Protocol: Document 11/23/24 14:31 NM (Rec: 11/23/24 15:59 NM [id number]) Manual Assessments Soft Tissue Assessment Soft Tissue Mobility Assessment Tightness and tenderness of L calf, hamstring, and hip flexors Joint Mobility Assessment Joint Mobility Assessment Decreased L knee PROM and AROM secondary to pain, swelling, and weakness. Limited active ankle mobility and hip mobility due to pain PT-OP-G Mobility & Gait Start: 11/23/24 08:05 Freq: Status: Active Protocol: Document 11/23/24 14:31 NM (Rec: 11/23/24 15:59 NM [id number]) OP Mobility Evaluation Bed Mobility Rolling Able to roll IND Supine to and from Sit Needs min A to lift LLE onto table but able to initiate 75% of motion Close SBA to assist with lowering LLE from table due to pain Transfers Sit to Stand CGA; Requires BUE assist to stand to FWW, 1 hand assist to sit. Maintains BLE equidistant, needs cueing for eccentric control OP Gait Assessment Gait Gait Assistance Required: Contact Guard Assist Distance (Feet) 131 Assistive Devices Assistive Device Gait Belt,Front Wheeled Walker Gait Deviations General Gait Pattern Antalgic,Decreased Feet Clearance Factors Limiting Gait Function Factors Limiting Gait Function Decreased Activity Tolerance, Decreased Strength,Limited Range of Motion,Pain PT-OP-J Posture/Palpation/Skin Start: 11/23/24 08:05 Freq: Status: Active Protocol: Document 11/23/24 14:31 NM (Rec: 11/23/24 15:59 NM [id number]) Palpation Assessment Location L knee Palpation Findings Edema,Tenderness Palpation Details Swelling present around knee, calf and thigh; will measure next session Tenderness in quad, hamstring Skin Assessment Incisional Assessment Incision Appearance/Comments Incision covered by intact bandage. No bleeding or drainage evident through bandage Other Assessments Skin Assessment Comments Swelling in LLE compared to RLE but no signs or symptoms of infection or DVT PT-OP-K Range of Motion Start: 11/23/24 08:05 Freq: Status: Active Protocol: Document 12/21/24 12:59 NM (Rec: 12/21/24 13:50 NM [id number]) Knee Goniometric Range of Motion Knee Right Flexion Active (degrees) 124 Extension Active (degrees) 0 Left Flexion Active (degrees) 116 Extension Active (degrees) 2 Extension Passive (degrees) 0 Comments limited by pain PT-OP-M Strength Start: 11/23/24 08:05 Freq: Status: Active Protocol: Document 12/21/24 12:59 NM (Rec: 12/21/24 13:50 NM [id number]) Hip Strength Hip Manual Muscle Testing Right Flexion (L2) 4 Good Extension (S1) 4 Good Abduction 4 Good Adduction 4 Good External Rotation 4 Good Internal Rotation 4 Good Left Flexion (L2) 4- Good- Extension (S1) 4- Good- Abduction 4- Good- Adduction 4- Good- External Rotation 4- Good- Internal Rotation 4- Good- Comments limited by pain Knee Strength Knee Manual Muscle Testing Right Flexion (S2) 4 Good Extension (L3) 4 Good Left Flexion (S2) 3+ Fair+ Extension (L3) 3+ Fair+ Comments 12/21/24: pain with resisted flex/ext IE: 3-/5 MMT, limited by pain; did not assess with resistance to protect surgical repair PT-OP-Q Treatments Start: 11/23/24 08:05 Freq: Status: Active Protocol: Document 01/09/25 13:47 NM (Rec: 01/09/25 14:57 NM [id number]) Cardio Equipment Recumbent Bicycle Duration (Minutes) 5 Resistance 0 Seat Position 5 Therapeutic Exercises Standing Exercises heel raises Side bilateral Equipment Used B hand support Reps/Minutes 20 calf stretch Standing Exercise Name B hand support Side bilateral Equipment Used 1. ANGIE, 2. at wall for calf stretch (HEP) Reps/Minutes 60 ea side steps Standing Exercise Name HEP review Side bilateral Resistance level 2 band at thighs > shins Equipment Used B hand support on counter Reps/Minutes 3x10 ft Comments close SBA Other Exercises step up Other Exercise Name 4 Side left Equipment Used flat hand support on 1 rail Reps/Minutes 10 ea Therapeutic Activity Therapeutic Activity stairs Comments c/ reciprocal pattern and CGA on 4 step, needs B rail flat hand assist for balance sit to stand Name HEP Comments close SBA with prn CGA to steady due to posterior lean. Cueing for foot positioning to avoid very wide KUSHAL with abduction at hips. Demos arms in front for anterior weight shift, needs cueing to maintain anterior shift prior following hip hinge vs posterior weight shift once off chair Pt requests present next to pt during STS, recommend perform 5 at meals for consistency transfers Name c/ spc Comments Performed to chair various times during session. Cueing for stepping closer to chair prior to turning vs taking multiple steps backward for spc Gait Training Gait Activity TUG Device Used CGA- needs 1 hand assist to rise from chair Comments 19 sec c/ spc improved turning with spc, remains in contact with ground but knocks cone over spc Device Used SPC in RUE Level of Assistance SBA, to CGA Surface stable Comments 1. gait in simms x 250 ft Improved sequencing, patterning and spc placement but slow lisa. demos tendency for posterior trunk lean 2. stairs 6 c/ spc, 2 set; CGA for balance and cueing step-to pattern Self-Care/Home Management Treatment Education Patient Education Fall Risk,Safety Other Education At this time, PT and pt/pt's discussed 4ww vs spc as pt still challenged with coordinating spc and with balance. Planning to try soroptomist today with plan to practice next session PT-OP-T Assessment and Plan Start: 11/23/24 08:05 Freq: Status: Active Protocol: Document 01/09/25 13:47 NM (Rec: 01/09/25 14:57 NM [id number]) Physical Therapy Assessment Goals Four Impairment use of FWW; 2 MWT distance 131 ft with FWW Short Term Goal (STG) Pt will normalize gait mechanics using LRAD if appropriate with L knee pain < 3/10 in order to demonstrate improved tolerance for gait and decreased fall risk 12/21/24: step through pattern with FWW; CGA and moderate cueing with spc, needs cueing for sequencing/placement/ safety but no increased pain 01/02/25: Pt requires cueing for ambulation w/ SPC in RUE for scuffing feet, placement w / turns R>L, and sit to stands - improves from mod cues to min cues by end of session. STG Duration 6 weeks PROGRESSING 12/21 Nursing Home Goal (LTG) Pt will be able to complete 6 MWT >1100 ft (pre-op 6 MWT distance) in order to demonstrate improved tolerance for family ambulation outings LTG Duration 12 weeks Three Impairment needs assist with transfers Short Term Goal (STG) Pt will be IND with bed transfers in order to demonstrate increased mobility 12/21/24: pt IND with bed mobility STG Duration 5 weeks MET 12/21 Nursing Home Goal (LTG) Pt will be able be able to complete 30 sec sit to stand test within age-related norm in order to demonstrate improved strength and endurance needed for cars and toilet/chair transfers LTG Duration 12 weeks Two Impairment L knee strength impaired Short Term Goal (STG) Pt will increase L knee flex/ ext and global L hip strength to at least 4-/5 in order to demonstrate improved strength for gait, transfers, and stairs 12/21/24: 3+/5 MMT knee flex/ ext, pain w/ flex/ext STG Duration 8 weeks PROGRESSING 12/21 Nursing Home Goal (LTG) Pt will increase L knee flex/ ext and global L hip strength to at least 4/5 in order to demonstrate improved strength for gait, transfers, and stairs LTG Duration 12 weeks One Impairment L knee ROM lacking 10 deg ext to 107 deg flex Short Term Goal (STG) Pt will improve L knee ext to least lacking 5 deg and L knee flexion to at least 115 deg in order to improve ROM for gait and transfers 2/13/25: lacking 2 deg ext, 116 deg flex STG Duration 6 weeks MET 12/21 Nursing Home Goal (LTG) Pt will improve L knee ext to lacking 2 deg or less and L knee flexion AROM to at least 120 deg in order to improve ROM for gait and transfers LTG Duration 12 weeks Assessment Summary Assessment Pt does not have increased knee pain during session, reports resolution of calf pain with stretching and heel raises. Pt demos improved mechanics with STS, able to rise from standard chair but demos wide base of support and requires >1 attempt at times. Fatigues after 5 reps. PT and pt worked on gait with spc today; pt with slow gait speed but improved sequencing 75% of the time. Trialed spc on stairs, needs increased cueing for safety. TUG still indicates not ready for spc transition yet; pt also with several instances of unsteadiness and posterior leaning during session, not aware of safety or being off balance. Physical Therapy Plan Frequency and Duration Frequency of Treatment 2x/Week Duration of treatment (weeks) 12 Plan of Care Start Date 11/23/24 Plan of Care End Date 02/16/25 Therapeutic Interventions Therapeutic Interventions Balance Training,Gait Training ,Home Exercise Program,Joint Mobilizations,Manual Therapy, Neuromuscular Re-education, Orthotic/Prosthetic Management ,Patient/Caregiver Education, Self-Care/Home Management, Sensory Integration,Soft Tissue Mobilization,Taping, Therapeutic Activities, Therapeutic Exercises Modalities Cold Pack/Ice Massage,Electric Stimulation,Hot Packs, Ultrasound Next Visit Focus/Plan Next Note Type Treatment Note Next Visit Plan Assess knee flex mob on stairs . STS from chair. Gait with 4ww vs continue spc trainin. leg press/slider squat vs step up, hip strength and balance Manual therapy as needed for L knee ROM
--- NOTE | 2025-01-11 15:24 | PT.OTN ---
Current Diagnoses Unilateral primary osteoarthritis, left knee (01/11/25) Stiffness of left knee, not elsewhere classified (01/11/25) Other lack of coordination (01/11/25) Weakness (01/11/25) Physical Therapy Treatment Note PT-OP-A Visit Information Start: 11/23/24 08:05 Freq: Status: Active Protocol: Document 01/11/25 13:00 NM (Rec: 01/11/25 15:24 NM [id number]) Out-Patient Physical Therapy Visit Information Visit Information Visit Type Treatment Note Visit Note KX after 19 visits Aye present Visit Start Time 13:00 Visit Stop Time 13:45 Visit Number 15 (7 PN) Evaluation Information Evaluation Date 11/23/24 Precautions Precautions L TKA 11/15/24; WBAT w/ FWW PT-OP-B Current Condition Start: 11/23/24 08:05 Freq: Status: Active Protocol: Document 11/23/24 14:31 NM (Rec: 11/23/24 15:59 NM [id number]) Current Condition History of Current Condition Onset Date DOS 11/15/24 Current Complaints pain, swelling, weakness, poor mobility, balance History of Current Condition Pt presents following L TKA on 11/15/24. Surgeon Dr. Conteh. Pt spent 2 days in hospital post surgery due to high heart rate, low blood pressure. Has since resolved. Pt also recently when to ED due to constipation following surgery . No dizziness, lightheadedness. present at evaluation and assisting with providing hx. Pt presents in manual wheelchair due to poor activity tolerance following several appt today, brought FWW. 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 Has been using FWW for mobility since surgery. Pt has 2 steps to enter home, L hand rail; stairs in home but does not use. Lives with . Bedroom is downstairs. Has 2 week follow up next week. No falls, no knee buckling since surgery. Has been performing HEP provided by hospital. Sleeping a temporary bed or recliner at home, has had leg propped up with knee bent. Has been icing several times ea day. is concerned about pt getting up at night alone to use bathroom as concerned about falls due to pain. Has been having adult kids help with nighttime care. Has not been wearing compression socks or hose; unsure if supposed to wear compression. Prior Treatments and Tests Previous PT prior to surgery Treatment Goals Patient/Caregiver Goals walks with family, get out in the shop, lawnmower PT-OP-C Subjective Start: 11/23/24 08:05 Freq: Status: Active Protocol: Document 01/11/25 13:00 NM (Rec: 01/11/25 15:24 NM [id number]) OP-PT Subjective Patient Comments Patient Comments Pt reports calf sore. Present with spc and 4ww. Went to appt in [facility] today with delivery coordinator to determine if needs pacemaker; has not made appt but will likely need pacemaker. States knee feeling ok. Has been doign HEP. present and assists with carryover. also states pt is being monitored for 2 aneurysms in his BLE behind the knees but delivery coordinator due to hx of AAA; states delivery coordinator is not concerned at this time PT-OP-D Balance Start: 11/23/24 08:05 Freq: Status: Active Protocol: Document 12/26/24 10:21 AB (Rec: 12/26/24 16:47 AB [id number]) Balance Tests Single Limb Standing Single Limb- Left 3 sec PT-OP-E Functional Tests Start: 12/26/24 16:48 Freq: Status: Active Protocol: Document 12/26/24 10:21 AB (Rec: 12/26/24 16:49 AB [id number]) Functional Tests Timed Up and Go (TUG) Score 16.47 seconds Comments Using SPC TUG Impairment Rating 60 to <80% Impaired (Score 16- 17) PT-OP-F Manual Assessment Start: 11/23/24 08:05 Freq: Status: Active Protocol: Document 11/23/24 14:31 NM (Rec: 11/23/24 15:59 NM [id number]) Manual Assessments Soft Tissue Assessment Soft Tissue Mobility Assessment Tightness and tenderness of L calf, hamstring, and hip flexors Joint Mobility Assessment Joint Mobility Assessment Decreased L knee PROM and AROM secondary to pain, swelling, and weakness. Limited active ankle mobility and hip mobility due to pain PT-OP-G Mobility & Gait Start: 11/23/24 08:05 Freq: Status: Active Protocol: Document 11/23/24 14:31 NM (Rec: 11/23/24 15:59 NM [id number]) OP Mobility Evaluation Bed Mobility Rolling Able to roll IND Supine to and from Sit Needs min A to lift LLE onto table but able to initiate 75% of motion Close SBA to assist with lowering LLE from table due to pain Transfers Sit to Stand CGA; Requires BUE assist to stand to FWW, 1 hand assist to sit. Maintains BLE equidistant, needs cueing for eccentric control OP Gait Assessment Gait Gait Assistance Required: Contact Guard Assist Distance (Feet) 131 Assistive Devices Assistive Device Gait Belt,Front Wheeled Walker Gait Deviations General Gait Pattern Antalgic,Decreased Feet Clearance Factors Limiting Gait Function Factors Limiting Gait Function Decreased Activity Tolerance, Decreased Strength,Limited Range of Motion,Pain PT-OP-J Posture/Palpation/Skin Start: 11/23/24 08:05 Freq: Status: Active Protocol: Document 11/23/24 14:31 NM (Rec: 11/23/24 15:59 NM [id number]) Palpation Assessment Location L knee Palpation Findings Edema,Tenderness Palpation Details Swelling present around knee, calf and thigh; will measure next session Tenderness in quad, hamstring Skin Assessment Incisional Assessment Incision Appearance/Comments Incision covered by intact bandage. No bleeding or drainage evident through bandage Other Assessments Skin Assessment Comments Swelling in LLE compared to RLE but no signs or symptoms of infection or DVT PT-OP-K Range of Motion Start: 11/23/24 08:05 Freq: Status: Active Protocol: Document 12/21/24 12:59 NM (Rec: 12/21/24 13:50 NM [id number]) Knee Goniometric Range of Motion Knee Right Flexion Active (degrees) 124 Extension Active (degrees) 0 Left Flexion Active (degrees) 116 Extension Active (degrees) 2 Extension Passive (degrees) 0 Comments limited by pain PT-OP-M Strength Start: 11/23/24 08:05 Freq: Status: Active Protocol: Document 12/21/24 12:59 NM (Rec: 12/21/24 13:50 NM [id number]) Hip Strength Hip Manual Muscle Testing Right Flexion (L2) 4 Good Extension (S1) 4 Good Abduction 4 Good Adduction 4 Good External Rotation 4 Good Internal Rotation 4 Good Left Flexion (L2) 4- Good- Extension (S1) 4- Good- Abduction 4- Good- Adduction 4- Good- External Rotation 4- Good- Internal Rotation 4- Good- Comments limited by pain Knee Strength Knee Manual Muscle Testing Right Flexion (S2) 4 Good Extension (L3) 4 Good Left Flexion (S2) 3+ Fair+ Extension (L3) 3+ Fair+ Comments 12/21/24: pain with resisted flex/ext IE: 3-/5 MMT, limited by pain; did not assess with resistance to protect surgical repair PT-OP-Q Treatments Start: 11/23/24 08:05 Freq: Status: Active Protocol: Document 01/11/25 13:00 NM (Rec: 01/11/25 15:24 NM [id number]) Therapeutic Exercises Sitting Exercises sit to stand Sitting Exercise Name from standard chair Side bilateral Equipment Used no UE assist Reps/Minutes 10 Comments close SBA Standing Exercises calf stretch Standing Exercise Name 1. gastrocnemius, 2. soleus Side left Equipment Used B hand support on rails Reps/Minutes 60 ea knee flexion mobilization Standing Exercise Name HEP review Side left Equipment Used on stairs Reps/Minutes 10x5 hold Comments good feedback Other Exercises stairs Other Exercise Name 1 rail assist Side bilateral Equipment Used reciprocal Reps/Minutes 2 sets x 4 stairs, 6 Comments poor control descent d/t pain, weakness, balance, ROM limits step up Other Exercise Name 6: 1. c/ TKE band, 2. step up /back Side left Equipment Used 1 flat hand on rail Reps/Minutes 10 ea Comments increased time needed Gait Training Gait Activity 4 wheeled walker Distance/Duration 15 min Comments 1. gait c/ 4ww 2. transfers c/ brake use. Cueing to lock brakes and place against wall prior to sitting. pt able to demo with cueing but does not carryover during session without cueing. present and observes how 4ww can slide backward slightly, no LOB or stumbles, just education regarding risk as pt with decreased awareness. Manual Therapy Treatment Consent Patient gave verbal consent for manual Yes treatment Soft Tissue Mobilization L knee Body Location hamstring and quad L LE, calf Mobilization Type Cross-Friction,Instrument Assisted,Myofascial Release, Rolling,Strumming Intensity/Depth Moderate Body Position Hooklying Comments 110 deg flex pre manual, 119 deg post manual Joint Mobilizations L knee Joint patellar, tibiofemoral Direction inf glide; slight distraction with post glides and overpressure into flex Grade III Body Position Hooklying Reps/Duration 4x30 ea Comments Monitored for pain, improved 119 post manual Other Other Manual Treatments Swelling present in LLE, pitting edema present. No redness, bruising, temperature changes, or other tenderness of calf including with alverto's test. alerted about edema. PT recommend alert MD and continue to monitor; educated on emergent red flags PT-OP-T Assessment and Plan Start: 11/23/24 08:05 Freq: Status: Active Protocol: Document 01/11/25 13:00 NM (Rec: 01/11/25 15:24 NM [id number]) Physical Therapy Assessment Goals Four Impairment use of FWW; 2 MWT distance 131 ft with FWW Short Term Goal (STG) Pt will normalize gait mechanics using LRAD if appropriate with L knee pain < 3/10 in order to demonstrate improved tolerance for gait and decreased fall risk 12/21/24: step through pattern with FWW; CGA and moderate cueing with spc, needs cueing for sequencing/placement/ safety but no increased pain 01/02/25: Pt requires cueing for ambulation w/ SPC in RUE for scuffing feet, placement w / turns R>L, and sit to stands - improves from mod cues to min cues by end of session. 01/11/25: improved speed, mechanics, and control of 4ww; no knee pain STG Duration 6 weeks MET 01/11 Senior Living Goal (LTG) Pt will be able to complete 6 MWT >1100 ft (pre-op 6 MWT distance) in order to demonstrate improved tolerance for family ambulation outings LTG Duration 12 weeks Three Impairment needs assist with transfers Short Term Goal (STG) Pt will be IND with bed transfers in order to demonstrate increased mobility 12/21/24: pt IND with bed mobility STG Duration 5 weeks MET 12/21 Pressure Supervisor Goal (LTG) Pt will be able be able to complete 30 sec sit to stand test within age-related norm in order to demonstrate improved strength and endurance needed for cars and toilet/chair transfers 01/11/25: 10 STS from standard chair, no UE LTG Duration 12 weeks Two Impairment L knee strength impaired Short Term Goal (STG) Pt will increase L knee flex/ ext and global L hip strength to at least 4-/5 in order to demonstrate improved strength for gait, transfers, and stairs 12/21/24: 3+/5 MMT knee flex/ ext, pain w/ flex/ext STG Duration 8 weeks PROGRESSING 12/21 Pressure Supervisor Goal (LTG) Pt will increase L knee flex/ ext and global L hip strength to at least 4/5 in order to demonstrate improved strength for gait, transfers, and stairs LTG Duration 12 weeks One Impairment L knee ROM lacking 10 deg ext to 107 deg flex Short Term Goal (STG) Pt will improve L knee ext to least lacking 5 deg and L knee flexion to at least 115 deg in order to improve ROM for gait and transfers 12/21/24: lacking 2 deg ext, 116 deg flex STG Duration 6 weeks MET 12/21 Senior Living Goal (LTG) Pt will improve L knee ext to lacking 2 deg or less and L knee flexion AROM to at least 120 deg in order to improve ROM for gait and transfers LTG Duration 12 weeks Assessment Summary Assessment Pt demos ability to perform STS from standard chair with increased reps, improved form, no cues, and no UE assist. Initiated step up and stair training for strengthening and ROM. Poor control upon descent due to weakness in quad/glutes, knee flex ROM limitations, and balance. Increased cueing needed with band for TKE on stairs, improved with reps. Pt is more stable and quicker on 4ww than FWW; recommend use over spc at this time. Pt still has poor awareness of balance deficits and safety at times; does not recall conversations, cueing, or instructions provided by PT and needs multiple cues frequently. L knee flex improved with manual treatment today but limited by swelling. Physical Therapy Plan Frequency and Duration Frequency of Treatment 2x/Week Duration of treatment (weeks) 12 Plan of Care Start Date 11/23/24 Plan of Care End Date 02/16/25 Therapeutic Interventions Therapeutic Interventions Balance Training,Gait Training ,Home Exercise Program,Joint Mobilizations,Manual Therapy, Neuromuscular Re-education, Orthotic/Prosthetic Management ,Patient/Caregiver Education, Self-Care/Home Management, Sensory Integration,Soft Tissue Mobilization,Taping, Therapeutic Activities, Therapeutic Exercises Modalities Cold Pack/Ice Massage,Electric Stimulation,Hot Packs, Ultrasound Next Visit Focus/Plan Next Note Type Treatment Note Next Visit Plan Leg press, stairs, knee flexion ROM, quad strength and glute strength and control. Trial slider squat Gait with 4ww vs continue spc trainin. leg press/slider squat vs step up, hip strength and balance Manual therapy as needed for L knee ROM
--- NOTE | 2025-01-16 14:33 | PT-OP ANOTE ---
Pt presents to clinic with increased swelling in entire LLE, pitting edema present. L patellar circumference 47 cm compared to R patellar 40 cm. B ankle figure 8 58 cm, 40 cm at B mid calf, and 25 m at B malleoli. Redness and increased pocket of swelling present in posterior knee, along with tightness in skin of lower leg. Pitting edema present at last PT session on 01/11 but no other symptoms including shortness of breath. reports bruising and redness not present until yesterday. Pt does not have calf tenderness, no + alverto's test. However, does have increased temperature upon palpation compared to RLE. PT educated pt and on signs and symptoms of suspected DVT, recommended ED immediately for doppler to rule out. PT asked for second opinion from PT Diana Rome, also recommended doppler due to suspected DVT. PT educated pt and to not do any PT exercises until confirmed or not; will be terminating session. Pt already has appt with PCP on . Taken to ED by PT at 2:25 pm; pt declines use of wheelchair.
--- NOTE | 2025-01-18 15:53 | PT.OTN ---
Current Diagnoses Unilateral primary osteoarthritis, left knee (01/18/25) Stiffness of left knee, not elsewhere classified (01/18/25) Other lack of coordination (01/18/25) Weakness (01/18/25) Physical Therapy Treatment Note PT-OP-A Visit Information Start: 11/23/24 08:05 Freq: Status: Active Protocol: Document 01/18/25 13:47 NM (Rec: 01/18/25 14:33 NM [id number]) Out-Patient Physical Therapy Visit Information Visit Information Visit Type Treatment Note Visit Note KX after 19 visits Aye present Visit Start Time 13:48 Visit Stop Time 14:28 Visit Number 16 (06/17 PN) Evaluation Information Evaluation Date 11/23/24 Precautions Precautions L TKA 11/15/24; WBAT w/ FWW cleared DVT 01/16 PT-OP-B Current Condition Start: 11/23/24 08:05 Freq: Status: Active Protocol: Document 11/23/24 14:31 NM (Rec: 11/23/24 15:59 NM [id number]) Current Condition History of Current Condition Onset Date DOS 11/15/24 Current Complaints pain, swelling, weakness, poor mobility, balance History of Current Condition Pt presents following L TKA on 11/15/24. Surgeon Dr. Conteh. Pt spent 2 days in hospital post surgery due to high heart rate, low blood pressure. Has since resolved. Pt also recently when to ED due to constipation following surgery . No dizziness, lightheadedness. present at evaluation and assisting with providing hx. Pt presents in manual wheelchair due to poor activity tolerance following several appt today, brought FWW. 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 Has been using FWW for mobility since surgery. Pt has 2 steps to enter home, L hand rail; stairs in home but does not use. Lives with . Bedroom is downstairs. Has 2 week follow up next week. No falls, no knee buckling since surgery. Has been performing HEP provided by hospital. Sleeping a temporary bed or recliner at home, has had leg propped up with knee bent. Has been icing several times ea day. is concerned about pt getting up at night alone to use bathroom as concerned about falls due to pain. Has been having adult kids help with nighttime care. Has not been wearing compression socks or hose; unsure if supposed to wear compression. Prior Treatments and Tests Previous PT prior to surgery Treatment Goals Patient/Caregiver Goals walks with family, get out in the shop, lawnmower PT-OP-C Subjective Start: 11/23/24 08:05 Freq: Status: Active Protocol: Document 01/18/25 13:47 NM (Rec: 01/18/25 14:33 NM [id number]) OP-PT Subjective Patient Comments Patient Comments Cleared on 01/16 for DVT. 01/15 in anterior knee. Just visited PCP Dr. Mayorga. Will be planning to have stress test on 02/06; does not have date yet but will be going to have pacemaker placed. PT-OP-D Balance Start: 11/23/24 08:05 Freq: Status: Active Protocol: Document 12/26/24 10:21 AB (Rec: 12/26/24 16:47 AB [id number]) Balance Tests Single Limb Standing Single Limb- Left 3 sec PT-OP-E Functional Tests Start: 12/26/24 16:48 Freq: Status: Active Protocol: Document 12/26/24 10:21 AB (Rec: 12/26/24 16:49 AB [id number]) Functional Tests Timed Up and Go (TUG) Score 16.47 seconds Comments Using [facility] [place] Impairment Rating 60 to <80% Impaired (Score 16- 17) PT-OP-F Manual Assessment Start: 11/23/24 08:05 Freq: Status: Active Protocol: Document 11/23/24 14:31 NM (Rec: 11/23/24 15:59 NM [id number]) Manual Assessments Soft Tissue Assessment Soft Tissue Mobility Assessment Tightness and tenderness of L calf, hamstring, and hip flexors Joint Mobility Assessment Joint Mobility Assessment Decreased L knee PROM and AROM secondary to pain, swelling, and weakness. Limited active ankle mobility and hip mobility due to pain PT-OP-G Mobility & Gait Start: 11/23/24 08:05 Freq: Status: Active Protocol: Document 11/23/24 14:31 NM (Rec: 11/23/24 15:59 NM [id number]) OP Mobility Evaluation Bed Mobility Rolling Able to roll IND Supine to and from Sit Needs min A to lift LLE onto table but able to initiate 75% of motion Close SBA to assist with lowering LLE from table due to pain Transfers Sit to Stand CGA; Requires BUE assist to stand to FWW, 1 hand assist to sit. Maintains BLE equidistant, needs cueing for eccentric control OP Gait Assessment Gait Gait Assistance Required: Contact Guard Assist Distance (Feet) 131 Assistive Devices Assistive Device Gait Belt,Front Wheeled Walker Gait Deviations General Gait Pattern Antalgic,Decreased Feet Clearance Factors Limiting Gait Function Factors Limiting Gait Function Decreased Activity Tolerance, Decreased Strength,Limited Range of Motion,Pain PT-OP-J Posture/Palpation/Skin Start: 11/23/24 08:05 Freq: Status: Active Protocol: Document 11/23/24 14:31 NM (Rec: 11/23/24 15:59 NM [id number]) Palpation Assessment Location L knee Palpation Findings Edema,Tenderness Palpation Details Swelling present around knee, calf and thigh; will measure next session Tenderness in quad, hamstring Skin Assessment Incisional Assessment Incision Appearance/Comments Incision covered by intact bandage. No bleeding or drainage evident through bandage Other Assessments Skin Assessment Comments Swelling in LLE compared to RLE but no signs or symptoms of infection or DVT PT-OP-K Range of Motion Start: 11/23/24 08:05 Freq: Status: Active Protocol: Document 12/21/24 12:59 NM (Rec: 12/21/24 13:50 NM [id number]) Knee Goniometric Range of Motion Knee Right Flexion Active (degrees) 124 Extension Active (degrees) 0 Left Flexion Active (degrees) 116 Extension Active (degrees) 2 Extension Passive (degrees) 0 Comments limited by pain PT-OP-M Strength Start: 11/23/24 08:05 Freq: Status: Active Protocol: Document 12/21/24 12:59 NM (Rec: 12/21/24 13:50 NM [id number]) Hip Strength Hip Manual Muscle Testing Right Flexion (L2) 4 Good Extension (S1) 4 Good Abduction 4 Good Adduction 4 Good External Rotation 4 Good Internal Rotation 4 Good Left Flexion (L2) 4- Good- Extension (S1) 4- Good- Abduction 4- Good- Adduction 4- Good- External Rotation 4- Good- Internal Rotation 4- Good- Comments limited by pain Knee Strength Knee Manual Muscle Testing Right Flexion (S2) 4 Good Extension (L3) 4 Good Left Flexion (S2) 3+ Fair+ Extension (L3) 3+ Fair+ Comments 12/21/24: pain with resisted flex/ext IE: 3-/5 MMT, limited by pain; did not assess with resistance to protect surgical repair PT-OP-Q Treatments Start: 11/23/24 08:05 Freq: Status: Active Protocol: Document 01/18/25 13:47 NM (Rec: 01/18/25 14:33 NM [id number]) Cardio Equipment Recumbent Bicycle Duration (Minutes) 3 Resistance 3 Seat Position 4 Other warm up Gym Equipment Shuttle Recovery unilateral Details medium-hard; cued alignment c/ verbal/tactile; performed B; needs inc time Resistance 37# Reps/Time 20 ea Therapeutic Exercises Standing Exercises calf stretch Standing Exercise Name 1. gastrocnemius, 2. soleus Side bilateral Equipment Used B hand support on rails Reps/Minutes 2x60 ea Comments answer pt question; has photo on phone Gait Training Gait Activity 4 wheeled walker Description outdoor stairs Device Used 4ww Level of Assistance CGA Surface unstable/stable Distance/Duration 10 min Treatment Focus stair mgmt at home c/ 4ww for safety Comments Cueing for brake mgmt, 4ww placement/positioning, pt positioning/placement at stairs. Performed going up/ down stairs for home use. Pt demos strong forward lean due to multiple steps in a row at home. Would benefit from spc use for safety Neuro Re-Education Treatment Balance Activities hurdles Details close SBA <> CGA Reps/Duration 10 ft x 6 hurdles, 2 sets ea Comments 1. Lateral hurdles cueing needed for weight shift , foot placement, and larger steps 2. fwd hurdles 1 finger support for balance 3. for TKE and heel strike, no UE support but intermittently leans on //bar for balance when stance on LLE cueing for neutral foot, 1 finger on //bar for balance. increased time needed for activity SLS Details HEP review Reps/Duration 2x30 Comments 2 finger support; close SBA For time, no UE support: 2 LLE, 5 RLE Self-Care/Home Management Treatment Education Caregiver Education Educated pt's to continue to monitor, take photos of pt 's leg for comparison to determine redness and swelling change Other Education Pt negative for DVT on 01/16 following doppler and ED visit . Has followed up with PCP. Pt still has some redness along L posterior calf and knee, especially behind knee. Swelling still present BLE, L knee/leg more than R knee/leg. PT-OP-R Modalities Start: 01/12/25 06:26 Freq: Status: Active Protocol: Document 12/19/24 14:38 NBM (Rec: 01/12/25 06:32 NB [id number]-) Hot Pack/Cold Pack Treatment Cold Pack Location L knee Patient Position Hooklying Patient Tolerance Good Comments LEs on bolster. 10 min PT-OP-T Assessment and Plan Start: 11/23/24 08:05 Freq: Status: Active Protocol: Document 01/18/25 13:47 NM (Rec: 01/18/25 14:33 NM [id number]) Physical Therapy Assessment Goals Four Impairment use of FWW; 2 MWT distance 131 ft with FWW Short Term Goal (STG) Pt will normalize gait mechanics using LRAD if appropriate with L knee pain < 3/10 in order to demonstrate improved tolerance for gait and decreased fall risk 12/21/24: step through pattern with FWW; CGA and moderate cueing with spc, needs cueing for sequencing/placement/ safety but no increased pain 01/02/25: Pt requires cueing for ambulation w/ SPC in RUE for scuffing feet, placement w / turns R>L, and sit to stands - improves from mod cues to min cues by end of session. 01/11/25: improved speed, mechanics, and control of 4ww; no knee pain STG Duration 6 weeks MET 01/11 Fpc Goal (LTG) Pt will be able to complete 6 MWT >1100 ft (pre-op 6 MWT distance) in order to demonstrate improved tolerance for family ambulation outings LTG Duration 12 weeks Three Impairment needs assist with transfers Short Term Goal (STG) Pt will be IND with bed transfers in order to demonstrate increased mobility 12/21/24: pt IND with bed mobility STG Duration 5 weeks MET 12/21 Fpc Goal (LTG) Pt will be able be able to complete 30 sec sit to stand test within age-related norm in order to demonstrate improved strength and endurance needed for cars and toilet/chair transfers 01/11/25: 10 STS from standard chair, no UE LTG Duration 12 weeks Two Impairment L knee strength impaired Short Term Goal (STG) Pt will increase L knee flex/ ext and global L hip strength to at least 4-/5 in order to demonstrate improved strength for gait, transfers, and stairs 12/21/24: 3+/5 MMT knee flex/ ext, pain w/ flex/ext STG Duration 8 weeks PROGRESSING 12/21 Head Of It Goal (LTG) Pt will increase L knee flex/ ext and global L hip strength to at least 4/5 in order to demonstrate improved strength for gait, transfers, and stairs LTG Duration 12 weeks One Impairment L knee ROM lacking 10 deg ext to 107 deg flex Short Term Goal (STG) Pt will improve L knee ext to least lacking 5 deg and L knee flexion to at least 115 deg in order to improve ROM for gait and transfers 12/21/24: lacking 2 deg ext, 116 deg flex STG Duration 6 weeks MET 12/21 Head Of It Goal (LTG) Pt will improve L knee ext to lacking 2 deg or less and L knee flexion AROM to at least 120 deg in order to improve ROM for gait and transfers LTG Duration 12 weeks Assessment Summary Assessment Pt has no increase in L knee pain during session. Able to increase reps on unilateral squat on shuttle but needs moderate cueing for knee alignment to allow for maximal knee flex/ext without compensation. Reviewed calf stretch with pt's taking picture of pt's form in session for improved carryover at home. Increased time needed for stair management training using 4ww outdoors for pt to carryover at home. Demos increased forward lean with 4ww use; will need to progress to spc use for descending stairs safely at home. No difficulty with ascent using 4ww, only with safely managing 4ww on descent . Demos improved TKE, heel strike, and knee flexion during hurdles today; however, still needs some UE assist and moderate cueing for correct execution and safety. Physical Therapy Plan Frequency and Duration Frequency of Treatment 2x/Week Duration of treatment (weeks) 12 Plan of Care Start Date 11/23/24 Plan of Care End Date 02/16/25 Therapeutic Interventions Therapeutic Interventions Balance Training,Gait Training ,Home Exercise Program,Joint Mobilizations,Manual Therapy, Neuromuscular Re-education, Orthotic/Prosthetic Management ,Patient/Caregiver Education, Self-Care/Home Management, Sensory Integration,Soft Tissue Mobilization,Taping, Therapeutic Activities, Therapeutic Exercises Modalities Cold Pack/Ice Massage,Electric Stimulation,Hot Packs, Ultrasound Next Visit Focus/Plan Next Note Type Progress Note Next Visit Plan Needs gait training on stairs c/ spc (indoor, outdoor) (spc is baseline). 6 MWT c/ spc vs 4ww. Assess 1/wk vs 2x/wk to maximize visits Leg press uni and B, stairs, knee flexion ROM, cont with quad strength and glute strength and control. Trial slider squat, step ups fwd/lat May need more spc training. Manual therapy as needed for L knee ROM
--- NOTE | 2025-01-23 16:25 | PT.OTN ---
Current Diagnoses Unilateral primary osteoarthritis, left knee (01/23/25) Stiffness of left knee, not elsewhere classified (01/23/25) Other lack of coordination (01/23/25) Weakness (01/23/25) Physical Therapy Treatment Note PT-OP-A Visit Information Start: 11/23/24 08:05 Freq: Status: Active Protocol: Document 01/23/25 15:10 MB (Rec: 01/23/25 16:25 MB [id number]) Out-Patient Physical Therapy Visit Information Visit Information Visit Type Progress Note Visit Note before KX Visit Start Time 15:10 Visit Stop Time 15:50 Visit Number 17 Evaluation Information Evaluation Date 11/23/24 Precautions Precautions L TKA 11/15/24; WBAT w/ FWW cleared DVT 01/16 PT-OP-B Current Condition Start: 11/23/24 08:05 Freq: Status: Active Protocol: Document 11/23/24 14:31 NM (Rec: 11/23/24 15:59 NM [id number]) Current Condition History of Current Condition Onset Date DOS 11/15/24 Current Complaints pain, swelling, weakness, poor mobility, balance History of Current Condition Pt presents following L TKA on 11/15/24. Surgeon Dr. Conteh. Pt spent 2 days in hospital post surgery due to high heart rate, low blood pressure. Has since resolved. Pt also recently when to ED due to constipation following surgery . No dizziness, lightheadedness. present at evaluation and assisting with providing hx. Pt presents in manual wheelchair due to poor activity tolerance following several appt today, brought FWW. 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 Has been using FWW for mobility since surgery. Pt has 2 steps to enter home, L hand rail; stairs in home but does not use. Lives with . Bedroom is downstairs. Has 2 week follow up next week. No falls, no knee buckling since surgery. Has been performing HEP provided by hospital. Sleeping a temporary bed or recliner at home, has had leg propped up with knee bent. Has been icing several times ea day. is concerned about pt getting up at night alone to use bathroom as concerned about falls due to pain. Has been having adult kids help with nighttime care. Has not been wearing compression socks or hose; unsure if supposed to wear compression. Prior Treatments and Tests Previous PT prior to surgery Treatment Goals Patient/Caregiver Goals walks with family, get out in the shop, lawnmower PT-OP-C Subjective Start: 11/23/24 08:05 Freq: Status: Active Protocol: Document 01/23/25 15:10 MB (Rec: 01/23/25 16:25 MB [id number]) OP-PT Subjective Patient Comments Patient Comments thinks that his LLE swelling is worse today. He is elevating some but not icing as much. On February 06, pt has a stress test and then he will have a pacemaker. PT-OP-D Balance Start: 11/23/24 08:05 Freq: Status: Active Protocol: Document 12/26/24 10:21 AB (Rec: 12/26/24 16:47 AB [id number]) Balance Tests Single Limb Standing Single Limb- Left 3 sec PT-OP-E Functional Tests Start: 12/26/24 16:48 Freq: Status: Active Protocol: Document 12/26/24 10:21 AB (Rec: 12/26/24 16:49 AB [id number]) Functional Tests Timed Up and Go (TUG) Score 16.47 seconds Comments Using [facility] TUG Impairment Rating 60 to <80% Impaired (Score 16- 17) PT-OP-F Manual Assessment Start: 11/23/24 08:05 Freq: Status: Active Protocol: Document 11/23/24 14:31 NM (Rec: 11/23/24 15:59 NM [id number]) Manual Assessments Soft Tissue Assessment Soft Tissue Mobility Assessment Tightness and tenderness of L calf, hamstring, and hip flexors Joint Mobility Assessment Joint Mobility Assessment Decreased L knee PROM and AROM secondary to pain, swelling, and weakness. Limited active ankle mobility and hip mobility due to pain PT-OP-G Mobility & Gait Start: 11/23/24 08:05 Freq: Status: Active Protocol: Document 11/23/24 14:31 NM (Rec: 11/23/24 15:59 NM [id number]) OP Mobility Evaluation Bed Mobility Rolling Able to roll IND Supine to and from Sit Needs min A to lift LLE onto table but able to initiate 75% of motion Close SBA to assist with lowering LLE from table due to pain Transfers Sit to Stand CGA; Requires BUE assist to stand to FWW, 1 hand assist to sit. Maintains BLE equidistant, needs cueing for eccentric control OP Gait Assessment Gait Gait Assistance Required: Contact Guard Assist Distance (Feet) 131 Assistive Devices Assistive Device Gait Belt,Front Wheeled Walker Gait Deviations General Gait Pattern Antalgic,Decreased Feet Clearance Factors Limiting Gait Function Factors Limiting Gait Function Decreased Activity Tolerance, Decreased Strength,Limited Range of Motion,Pain PT-OP-J Posture/Palpation/Skin Start: 11/23/24 08:05 Freq: Status: Active Protocol: Document 11/23/24 14:31 NM (Rec: 11/23/24 15:59 NM [id number]) Palpation Assessment Location L knee Palpation Findings Edema,Tenderness Palpation Details Swelling present around knee, calf and thigh; will measure next session Tenderness in quad, hamstring Skin Assessment Incisional Assessment Incision Appearance/Comments Incision covered by intact bandage. No bleeding or drainage evident through bandage Other Assessments Skin Assessment Comments Swelling in LLE compared to RLE but no signs or symptoms of infection or DVT PT-OP-K Range of Motion Start: 11/23/24 08:05 Freq: Status: Active Protocol: Document 12/21/24 12:59 NM (Rec: 12/21/24 13:50 NM [id number]) Knee Goniometric Range of Motion Knee Right Flexion Active (degrees) 124 Extension Active (degrees) 0 Left Flexion Active (degrees) 116 Extension Active (degrees) 2 Extension Passive (degrees) 0 Comments limited by pain PT-OP-M Strength Start: 11/23/24 08:05 Freq: Status: Active Protocol: Document 12/21/24 12:59 NM (Rec: 12/21/24 13:50 NM [id number]) Hip Strength Hip Manual Muscle Testing Right Flexion (L2) 4 Good Extension (S1) 4 Good Abduction 4 Good Adduction 4 Good External Rotation 4 Good Internal Rotation 4 Good Left Flexion (L2) 4- Good- Extension (S1) 4- Good- Abduction 4- Good- Adduction 4- Good- External Rotation 4- Good- Internal Rotation 4- Good- Comments limited by pain Knee Strength Knee Manual Muscle Testing Right Flexion (S2) 4 Good Extension (L3) 4 Good Left Flexion (S2) 3+ Fair+ Extension (L3) 3+ Fair+ Comments 12/21/24: pain with resisted flex/ext IE: 3-/5 MMT, limited by pain; did not assess with resistance to protect surgical repair PT-OP-Q Treatments Start: 11/23/24 08:05 Freq: Status: Active Protocol: Document 01/23/25 15:10 MB (Rec: 01/23/25 16:25 MB [id number]) Therapeutic Exercises Supine Exercises AROM and MMT Comments See goals for findings today Sitting Exercises 30 sec STS Comments 12 reps, sitting on black plinth, arms across chest Gait Training Gait Activity 6MWT Comments Pt gait trains 1262 feet in 6 minutes with rollator today and able to talk throughout gait and walk with good B knee flexion and heel strike and step-through, good lisa Self-Care/Home Management Treatment Education Patient Education Home Exercise Program,Joint Protection,Pain Management Other Education Measuring for thigh high compression hose: pt's measures size large and ed pt and to clear with Dr. Mayorga before ordering d/t cardiac issues, 15-20 mmHg, closed toes and ed to wear during the day, don when he gets up and consider taking a shower at night time. Ed pt and to con't with leg elevation and icing, walking with rollator and try walking in safe areas outside. PT-OP-R Modalities Start: 01/12/25 06:26 Freq: Status: Active Protocol: Document 12/19/24 14:38 NB (Rec: 01/12/25 06:32 [facility] [phone]-) Hot Pack/Cold Pack Treatment Cold Pack Location L knee Patient Position Hooklying Patient Tolerance Good Comments LEs on bolster. 10 min PT-OP-T Assessment and Plan Start: 11/23/24 08:05 Freq: Status: Active Protocol: Document 01/23/25 15:10 MB (Rec: 01/23/25 16:25 [id number]) Physical Therapy Assessment Rehab Potential Rehabilitation Potential Good Evaluation Complexity Number of Personal Factors/Comorbidities 1-2 Number of Body Systems Impaired 3 Clinical Presentation at Evaluation Evolving Impairments Impairments Activity Tolerance,Balance, Coordination,Edema,Functional Activities,Functional Mobility ,Gait,Integument,Pain,Posture, ROM,Soft Tissue Mobility, Strength Goals Four Impairment use of FWW; 2 MWT distance 131 ft with FWW Short Term Goal (STG) Pt will normalize gait mechanics using LRAD if appropriate with L knee pain < 3/10 in order to demonstrate improved tolerance for gait and decreased fall risk 12/21/24: step through pattern with FWW; CGA and moderate cueing with spc, needs cueing for sequencing/placement/ safety but no increased pain 01/02/25: Pt requires cueing for ambulation w/ SPC in RUE for scuffing feet, placement w / turns R>L, and sit to stands - improves from mod cues to min cues by end of session. 01/11/25: improved speed, mechanics, and control of 4ww; no knee pain STG Duration 6 weeks MET 01/11 Senior Living Goal (LTG) Pt will be able to complete 6 MWT >1100 ft (pre-op 6 MWT distance) in order to demonstrate improved tolerance for family ambulation outings . 01/23/25: Pt gait trains 1262 feet in 6 minutes with rollator today with good lisa, step-length and foot clearance and pt is able to talk with gait. Will keep goal to work on gait with SPC/ hurrycane. LTG Duration 4 weeks Three Impairment needs assist with transfers Short Term Goal (STG) Pt will be IND with bed transfers in order to demonstrate increased mobility 12/21/24: pt IND with bed mobility STG Duration 5 weeks MET 12/21 Senior Living Goal (LTG) Pt will be able be able to complete 30 sec sit to stand test within age-related norm in order to demonstrate improved strength and endurance needed for cars and toilet/chair transfers 01/11/25: 10 STS from standard chair, no UE 01/23/25: Pt performs 12 reps STS from black plinth with arms across chest today. LTG Duration 12 weeks Two Impairment L knee strength impaired Short Term Goal (STG) Pt will increase L knee flex/ ext and global L hip strength to at least 4-/5 in order to demonstrate improved strength for gait, transfers, and stairs 12/21/24: 3+/5 MMT knee flex/ ext, pain w/ flex/ext STG Duration 8 weeks PROGRESSING 12/21 Planner Goal (LTG) Pt will increase L knee flex/ ext and global L hip strength to at least 4/5 in order to demonstrate improved strength for gait, transfers, and stairs. 01/23/25: Left knee flexion 4-/ 5 and left knee extension 4+/5 today, tested in supine. LTG Duration 12 weeks One Impairment L knee ROM lacking 10 deg ext to 107 deg flex Short Term Goal (STG) Pt will improve L knee ext to least lacking 5 deg and L knee flexion to at least 115 deg in order to improve ROM for gait and transfers 12/21/24: lacking 2 deg ext, 116 deg flex STG Duration 6 weeks MET 12/21 Planner Goal (LTG) Pt will improve L knee ext to lacking 2 deg or less and L knee flexion AROM to at least 120 deg in order to improve ROM for gait and transfers 01/23/25: Left knee AROM in supine is 3-117 deg this date LTG Duration 12 weeks Assessment Summary Assessment Pt has progressed towards all goals including left knee AROM , strength, 30 sec STS and 6MWT with rollator. He con't with LLE greater than RLE edema and PT feels this is at least partially d/t him wearing knee high compression hose that reach just distal to his knees. Measured pt for thigh high compression and ed him and to clear with Dr. Mayorga given cardiac history and if he clears thigh high use, ed to order 15-20 mmHg compression to help with edema and PT feels this will really assist patient. Will con't to work towards gait with his hurrycane and balance training . O2 sats 99% and HR 66 BPM after 6MWT today. Physical Therapy Plan Frequency and Duration Frequency of Treatment 2x/Week Duration of treatment (weeks) 12 Plan of Care Start Date 11/23/24 Plan of Care End Date 02/16/25 Therapeutic Interventions Therapeutic Interventions Balance Training,Gait Training ,Home Exercise Program,Joint Mobilizations,Manual Therapy, Neuromuscular Re-education, Orthotic/Prosthetic Management ,Patient/Caregiver Education, Self-Care/Home Management, Sensory Integration,Soft Tissue Mobilization,Taping, Therapeutic Activities, Therapeutic Exercises Modalities Cold Pack/Ice Massage,Electric Stimulation,Hot Packs, Ultrasound Next Visit Focus/Plan Next Note Type Progress Note Next Visit Plan Gait training with SPC/ hurrycane, stair training Review and revise HEP Balance assessment and training/exercises Manual therapy as needed for LLE
--- NOTE | 2025-01-26 11:56 | PT.OTN ---
Current Diagnoses Unilateral primary osteoarthritis, left knee (01/26/25) Stiffness of left knee, not elsewhere classified (01/26/25) Other lack of coordination (01/26/25) Weakness (01/26/25) Physical Therapy Treatment Note PT-OP-A Visit Information Start: 11/23/24 08:05 Freq: Status: Active Protocol: Document 01/26/25 10:42 AB (Rec: 01/26/25 11:49 AB [id number]) Out-Patient Physical Therapy Visit Information Visit Information Visit Type Treatment Note Visit Note before KX Visit Start Time 10:48 Visit Stop Time 11:34 Visit Number 18 Number of SHIPPING HAND Visits 1 Evaluation Information Evaluation Date 11/23/24 Precautions Precautions L TKA 11/15/24; WBAT w/ FWW cleared DVT 01/16 PT-OP-B Current Condition Start: 11/23/24 08:05 Freq: Status: Active Protocol: Document 11/23/24 14:31 NM (Rec: 11/23/24 15:59 NM [id number]) Current Condition History of Current Condition Onset Date DOS 11/15/24 Current Complaints pain, swelling, weakness, poor mobility, balance History of Current Condition Pt presents following L TKA on 11/15/24. Surgeon Dr. Conteh. Pt spent 2 days in hospital post surgery due to high heart rate, low blood pressure. Has since resolved. Pt also recently when to ED due to constipation following surgery . No dizziness, lightheadedness. present at evaluation and assisting with providing hx. Pt presents in manual wheelchair due to poor activity tolerance following several appt today, brought FWW. 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 Has been using FWW for mobility since surgery. Pt has 2 steps to enter home, L hand rail; stairs in home but does not use. Lives with . Bedroom is downstairs. Has 2 week follow up next week. No falls, no knee buckling since surgery. Has been performing HEP provided by hospital. Sleeping a temporary bed or recliner at home, has had leg propped up with knee bent. Has been icing several times ea day. is concerned about pt getting up at night alone to use bathroom as concerned about falls due to pain. Has been having adult kids help with nighttime care. Has not been wearing compression socks or hose; unsure if supposed to wear compression. Prior Treatments and Tests Previous PT prior to surgery Treatment Goals Patient/Caregiver Goals walks with family, get out in the shop, lawnmower PT-OP-C Subjective Start: 11/23/24 08:05 Freq: Status: Active Protocol: Document 01/26/25 10:42 AB (Rec: 01/26/25 11:49 AB [id number]) OP-PT Subjective Patient Comments Patient Comments Alex rates L knee pain 2-3/10 ambulating into session with 4 wheeled walker, initiates stepping away from walker to back to chair without walker, and ignores verbal cues to lock brakes. O2 sat 99% to 100 % HR 46-50 BPM start of session. AROM lacking 7 deg extension to 120 deg flexion left knee start of session. PT-OP-D Balance Start: 11/23/24 08:05 Freq: Status: Active Protocol: Document 01/26/25 10:42 AB (Rec: 01/26/25 11:55 AB [id number]) Balance Tests Single Limb Standing Single Limb- Right 13 Single Limb- Left 14 PT-OP-E Functional Tests Start: 12/26/24 16:48 Freq: Status: Active Protocol: Document 01/26/25 10:42 AB (Rec: 01/26/25 11:56 AB [id number]) Functional Tests Timed Up and Go (TUG) Score 12.20 sec Comments without device, required CGA on turn excessive trunk lean, UE use for sit t TUG Impairment Rating 20 to <40% Impaired (Score 12- 13) PT-OP-F Manual Assessment Start: 11/23/24 08:05 Freq: Status: Active Protocol: Document 11/23/24 14:31 NM (Rec: 11/23/24 15:59 NM [id number]) Manual Assessments Soft Tissue Assessment Soft Tissue Mobility Assessment Tightness and tenderness of L calf, hamstring, and hip flexors Joint Mobility Assessment Joint Mobility Assessment Decreased L knee PROM and AROM secondary to pain, swelling, and weakness. Limited active ankle mobility and hip mobility due to pain PT-OP-G Mobility & Gait Start: 11/23/24 08:05 Freq: Status: Active Protocol: Document 11/23/24 14:31 NM (Rec: 11/23/24 15:59 NM [id number]) OP Mobility Evaluation Bed Mobility Rolling Able to roll IND Supine to and from Sit Needs min A to lift LLE onto table but able to initiate 75% of motion Close SBA to assist with lowering LLE from table due to pain Transfers Sit to Stand CGA; Requires BUE assist to stand to FWW, 1 hand assist to sit. Maintains BLE equidistant, needs cueing for eccentric control OP Gait Assessment Gait Gait Assistance Required: Contact Guard Assist Distance (Feet) 131 Assistive Devices Assistive Device Gait Belt,Front Wheeled Walker Gait Deviations General Gait Pattern Antalgic,Decreased Feet Clearance Factors Limiting Gait Function Factors Limiting Gait Function Decreased Activity Tolerance, Decreased Strength,Limited Range of Motion,Pain PT-OP-J Posture/Palpation/Skin Start: 11/23/24 08:05 Freq: Status: Active Protocol: Document 11/23/24 14:31 NM (Rec: 11/23/24 15:59 NM [id number]) Palpation Assessment Location L knee Palpation Findings Edema,Tenderness Palpation Details Swelling present around knee, calf and thigh; will measure next session Tenderness in quad, hamstring Skin Assessment Incisional Assessment Incision Appearance/Comments Incision covered by intact bandage. No bleeding or drainage evident through bandage Other Assessments Skin Assessment Comments Swelling in LLE compared to RLE but no signs or symptoms of infection or DVT PT-OP-K Range of Motion Start: 11/23/24 08:05 Freq: Status: Active Protocol: Document 12/21/24 12:59 NM (Rec: 12/21/24 13:50 NM [id number]) Knee Goniometric Range of Motion Knee Right Flexion Active (degrees) 124 Extension Active (degrees) 0 Left Flexion Active (degrees) 116 Extension Active (degrees) 2 Extension Passive (degrees) 0 Comments limited by pain PT-OP-M Strength Start: 11/23/24 08:05 Freq: Status: Active Protocol: Document 12/21/24 12:59 NM (Rec: 12/21/24 13:50 NM [id number]) Hip Strength Hip Manual Muscle Testing Right Flexion (L2) 4 Good Extension (S1) 4 Good Abduction 4 Good Adduction 4 Good External Rotation 4 Good Internal Rotation 4 Good Left Flexion (L2) 4- Good- Extension (S1) 4- Good- Abduction 4- Good- Adduction 4- Good- External Rotation 4- Good- Internal Rotation 4- Good- Comments limited by pain Knee Strength Knee Manual Muscle Testing Right Flexion (S2) 4 Good Extension (L3) 4 Good Left Flexion (S2) 3+ Fair+ Extension (L3) 3+ Fair+ Comments 12/21/24: pain with resisted flex/ext IE: 3-/5 MMT, limited by pain; did not assess with resistance to protect surgical repair PT-OP-Q Treatments Start: 11/23/24 08:05 Freq: Status: Active Protocol: Document 01/26/25 10:42 AB (Rec: 01/26/25 11:49 AB [id number]) Therapeutic Exercises Supine Exercises HS stretch Supine Exercise Name fom hooklying Side left Reps/Minutes 60 sec X 1 Comments Verbal cues Standing Exercises knee flexion mobilization Standing Exercise Name Decreased to every other day. Patient/family ed not performed this session Therapeutic Activity Therapeutic Activity sit to stand Name with and without UE use Reps/Minutes X 3 and X 10 Comments Patient/family ed importance of nose over toes/increased hip hinge, Verbal cues to straighten left knee to same position as right when reaching upright then sit down slowly. Gait Training Gait Activity TUG Description UE use to rise from chair ie armrests Level of Assistance without device Distance/Duration CGA through turn due to excessive trunk lean Comments 12.20 seconds spc Description with cane and rail reciprocal pattern Device Used SPC Level of Assistance close sueprvision Distance/Duration 4 six inch steps X 4, also, ambulation with focus on sudden turns ~25 feet Treatment Focus safety Comments Verbal and visual cues for UE and cane placement descending stairs ie forward to next step . Manual Therapy Treatment Soft Tissue Mobilization L knee Body Location quad and HS Mobilization Type Cross-Friction,Myofascial Release,Rolling,Strumming Intensity/Depth Moderate Body Position Hooklying Comments pre HS stretch and sit to stand Neuro Re-Education Treatment Balance Activities SLS Details CGA without UE use Comments R LE 13 sec L LE 14 sec PT-OP-R Modalities Start: 01/12/25 06:26 Freq: Status: Active Protocol: Document 12/19/24 14:38 KINJAL (Rec: 01/12/25 06:32 [facility] [id number]-) Hot Pack/Cold Pack Treatment Cold Pack Location L knee Patient Position Hooklying Patient Tolerance Good Comments LEs on bolster. 10 min PT-OP-T Assessment and Plan Start: 11/23/24 08:05 Freq: Status: Active Protocol: Document 01/26/25 10:42 AB (Rec: 01/26/25 11:49 AB [id number]) Physical Therapy Assessment Goals Four Impairment use of FWW; 2 MWT distance 131 ft with FWW Short Term Goal (STG) Pt will normalize gait mechanics using LRAD if appropriate with L knee pain < 3/10 in order to demonstrate improved tolerance for gait and decreased fall risk 12/21/24: step through pattern with FWW; CGA and moderate cueing with spc, needs cueing for sequencing/placement/ safety but no increased pain 01/02/25: Pt requires cueing for ambulation w/ SPC in RUE for scuffing feet, placement w / turns R>L, and sit to stands - improves from mod cues to min cues by end of session. 01/11/25: improved speed, mechanics, and control of 4ww; no knee pain STG Duration 6 weeks MET 01/11 Custodial Goal (LTG) Pt will be able to complete 6 MWT >1100 ft (pre-op 6 MWT distance) in order to demonstrate improved tolerance for family ambulation outings . 01/23/25: Pt gait trains 1262 feet in 6 minutes with rollator today with good lisa, step-length and foot clearance and pt is able to talk with gait. Will keep goal to work on gait with SPC/ hurrycane. LTG Duration 4 weeks Three Impairment needs assist with transfers Short Term Goal (STG) Pt will be IND with bed transfers in order to demonstrate increased mobility 12/21/24: pt IND with bed mobility STG Duration 5 weeks MET 12/21 Custodial Goal (LTG) Pt will be able be able to complete 30 sec sit to stand test within age-related norm in order to demonstrate improved strength and endurance needed for cars and toilet/chair transfers 01/11/25: 10 STS from standard chair, no UE 01/23/25: Pt performs 12 reps STS from black plinth with arms across chest today. LTG Duration 12 weeks Two Impairment L knee strength impaired Short Term Goal (STG) Pt will increase L knee flex/ ext and global L hip strength to at least 4-/5 in order to demonstrate improved strength for gait, transfers, and stairs 12/21/24: 3+/5 MMT knee flex/ ext, pain w/ flex/ext STG Duration 8 weeks PROGRESSING 12/21 Dry Box Tender Goal (LTG) Pt will increase L knee flex/ ext and global L hip strength to at least 4/5 in order to demonstrate improved strength for gait, transfers, and stairs. 01/23/25: Left knee flexion 4-/ 5 and left knee extension 4+/5 today, tested in supine. LTG Duration 12 weeks One Impairment L knee ROM lacking 10 deg ext to 107 deg flex Short Term Goal (STG) Pt will improve L knee ext to least lacking 5 deg and L knee flexion to at least 115 deg in order to improve ROM for gait and transfers 12/21/24: lacking 2 deg ext, 116 deg flex STG Duration 6 weeks MET 12/21 Dry Box Tender Goal (LTG) Pt will improve L knee ext to lacking 2 deg or less and L knee flexion AROM to at least 120 deg in order to improve ROM for gait and transfers 01/23/25: Left knee AROM in supine is 3-117 deg this date LTG Duration 12 weeks Assessment Summary Assessment AROM left knee extension lacking 5 deg post manual therapy and hamstring stretch, increased verbal cues required for UE and cane placement descending stairs. Physical Therapy Plan Frequency and Duration Frequency of Treatment 2x/Week Duration of treatment (weeks) 12 Plan of Care Start Date 11/23/24 Plan of Care End Date 02/16/25 Next Visit Focus/Plan Next Note Type Treatment Note Next Visit Plan Gait training with / kaye, stair training ( quick turns are unsteady, and cane placement descending stairs continues to require cues) Review as needed Balance assessment Tug and SLS done possibly MARTEL/ DGI next session. and training/ exercises Manual therapy as needed for LLE
--- NOTE | 2025-01-30 16:09 | PT.OTN ---
Current Diagnoses Unilateral primary osteoarthritis, left knee (01/30/25) Stiffness of left knee, not elsewhere classified (01/30/25) Other lack of coordination (01/30/25) Weakness (01/30/25) Physical Therapy Treatment Note PT-OP-A Visit Information Start: 11/23/24 08:05 Freq: Status: Active Protocol: Document 01/30/25 15:17 MB (Rec: 01/30/25 16:08 MB [id number]) Out-Patient Physical Therapy Visit Information Visit Information Visit Type Treatment Note Visit Note KX next treatment Check BP at start of treatment and as needed. Consider d/c PT after next treatment if con 't so high. Visit Start Time 15:17 Visit Stop Time 15:57 Visit Number 19 Number of TALENT MANAGER Visits 0 Evaluation Information Evaluation Date 11/23/24 Precautions Precautions Check BP PT-OP-B Current Condition Start: 11/23/24 08:05 Freq: Status: Active Protocol: Document 11/23/24 14:31 NM (Rec: 11/23/24 15:59 NM [id number]) Current Condition History of Current Condition Onset Date DOS 11/15/24 Current Complaints pain, swelling, weakness, poor mobility, balance History of Current Condition Pt presents following L TKA on 11/15/24. Surgeon Dr. Conteh. Pt spent 2 days in hospital post surgery due to high heart rate, low blood pressure. Has since resolved. Pt also recently when to ED due to constipation following surgery . No dizziness, lightheadedness. present at evaluation and assisting with providing hx. Pt presents in manual wheelchair due to poor activity tolerance following several appt today, brought FWW. 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 Has been using FWW for mobility since surgery. Pt has 2 steps to enter home, L hand rail; stairs in home but does not use. Lives with . Bedroom is downstairs. Has 2 week follow up next week. No falls, no knee buckling since surgery. Has been performing HEP provided by hospital. Sleeping a temporary bed or recliner at home, has had leg propped up with knee bent. Has been icing several times ea day. is concerned about pt getting up at night alone to use bathroom as concerned about falls due to pain. Has been having adult kids help with nighttime care. Has not been wearing compression socks or hose; unsure if supposed to wear compression. Prior Treatments and Tests Previous PT prior to surgery Treatment Goals Patient/Caregiver Goals walks with family, get out in the shop, lawnmower PT-OP-C Subjective Start: 11/23/24 08:05 Freq: Status: Active Protocol: Document 01/30/25 15:17 MB (Rec: 01/30/25 16:08 MB [id number]) OP-PT Subjective Patient Comments Patient Comments Pt c/o having fat legs. states that Dr. Mayorga cleared compression hose but she just hasn't gotten them yet. PT-OP-D Balance Start: 11/23/24 08:05 Freq: Status: Active Protocol: Document 01/26/25 10:42 AB (Rec: 01/26/25 11:55 AB [id number]) Balance Tests Single Limb Standing Single Limb- Right 13 Single Limb- Left 14 PT-OP-E Functional Tests Start: 12/26/24 16:48 Freq: Status: Active Protocol: Document 01/26/25 10:42 AB (Rec: 01/26/25 11:56 AB [id number]) Functional Tests Timed Up and Go (TUG) Score 12.20 sec Comments without device, required CGA on turn excessive trunk lean, UE use for sit t TUG Impairment Rating 20 to <40% Impaired (Score 12- 13) PT-OP-F Manual Assessment Start: 11/23/24 08:05 Freq: Status: Active Protocol: Document 11/23/24 14:31 NM (Rec: 11/23/24 15:59 NM [id number]) Manual Assessments Soft Tissue Assessment Soft Tissue Mobility Assessment Tightness and tenderness of L calf, hamstring, and hip flexors Joint Mobility Assessment Joint Mobility Assessment Decreased L knee PROM and AROM secondary to pain, swelling, and weakness. Limited active ankle mobility and hip mobility due to pain PT-OP-G Mobility & Gait Start: 11/23/24 08:05 Freq: Status: Active Protocol: Document 11/23/24 14:31 NM (Rec: 11/23/24 15:59 NM [id number]) OP Mobility Evaluation Bed Mobility Rolling Able to roll IND Supine to and from Sit Needs min A to lift LLE onto table but able to initiate 75% of motion Close SBA to assist with lowering LLE from table due to pain Transfers Sit to Stand CGA; Requires BUE assist to stand to FWW, 1 hand assist to sit. Maintains BLE equidistant, needs cueing for eccentric control OP Gait Assessment Gait Gait Assistance Required: Contact Guard Assist Distance (Feet) 131 Assistive Devices Assistive Device Gait Belt,Front Wheeled Walker Gait Deviations General Gait Pattern Antalgic,Decreased Feet Clearance Factors Limiting Gait Function Factors Limiting Gait Function Decreased Activity Tolerance, Decreased Strength,Limited Range of Motion,Pain PT-OP-J Posture/Palpation/Skin Start: 11/23/24 08:05 Freq: Status: Active Protocol: Document 11/23/24 14:31 NM (Rec: 11/23/24 15:59 NM [id number]) Palpation Assessment Location L knee Palpation Findings Edema,Tenderness Palpation Details Swelling present around knee, calf and thigh; will measure next session Tenderness in quad, hamstring Skin Assessment Incisional Assessment Incision Appearance/Comments Incision covered by intact bandage. No bleeding or drainage evident through bandage Other Assessments Skin Assessment Comments Swelling in LLE compared to RLE but no signs or symptoms of infection or DVT PT-OP-K Range of Motion Start: 11/23/24 08:05 Freq: Status: Active Protocol: Document 12/21/24 12:59 NM (Rec: 12/21/24 13:50 NM [id number]) Knee Goniometric Range of Motion Knee Right Flexion Active (degrees) 124 Extension Active (degrees) 0 Left Flexion Active (degrees) 116 Extension Active (degrees) 2 Extension Passive (degrees) 0 Comments limited by pain PT-OP-M Strength Start: 11/23/24 08:05 Freq: Status: Active Protocol: Document 12/21/24 12:59 NM (Rec: 12/21/24 13:50 NM [id number]) Hip Strength Hip Manual Muscle Testing Right Flexion (L2) 4 Good Extension (S1) 4 Good Abduction 4 Good Adduction 4 Good External Rotation 4 Good Internal Rotation 4 Good Left Flexion (L2) 4- Good- Extension (S1) 4- Good- Abduction 4- Good- Adduction 4- Good- External Rotation 4- Good- Internal Rotation 4- Good- Comments limited by pain Knee Strength Knee Manual Muscle Testing Right Flexion (S2) 4 Good Extension (L3) 4 Good Left Flexion (S2) 3+ Fair+ Extension (L3) 3+ Fair+ Comments 12/21/24: pain with resisted flex/ext IE: 3-/5 MMT, limited by pain; did not assess with resistance to protect surgical repair PT-OP-Q Treatments Start: 11/23/24 08:05 Freq: Status: Active Protocol: Document 01/30/25 15:17 MB (Rec: 01/30/25 16:08 MB [id number]) Cardio Equipment Recumbent Bicycle Duration (Minutes) 8 Resistance up to 8 Seat Position 7 Therapeutic Exercises Supine Exercises SLR Supine Exercise Name Reviewed from HEP Comments Derry leg bent, cues for QS first and to lift and lower slowly Self-Care/Home Management Treatment Education Patient Education Safety Other Education Extensive education to pt and after two high BP measurements in RUE today: 175 /95 after 8' exercise on recumbent bicycle and 156/102 in supine after SLR and rest. Ed to communicate with Dr Von Mayorga and for pt to go to ED if increased SOB, CP, other symptoms. Pt has cardiology appointment in two days. Will attempt PT once more. If con't with such high BP, will d/c PT. PT-OP-R Modalities Start: 01/12/25 06:26 Freq: Status: Active Protocol: Document 12/19/24 14:38 NBM (Rec: 01/12/25 06:32 NBM [id number]-) Hot Pack/Cold Pack Treatment Cold Pack Location L knee Patient Position Hooklying Patient Tolerance Good Comments LEs on bolster. 10 min PT-OP-T Assessment and Plan Start: 11/23/24 08:05 Freq: Status: Active Protocol: Document 01/30/25 15:17 MB (Rec: 01/30/25 16:08 [id number]) Physical Therapy Assessment Rehab Potential Rehabilitation Potential Good Evaluation Complexity Number of Personal Factors/Comorbidities 1-2 Number of Body Systems Impaired 3 Clinical Presentation at Evaluation Evolving Impairments Impairments Activity Tolerance,Balance, Coordination,Edema,Functional Activities,Functional Mobility ,Gait,Integument,Pain,Posture, ROM,Soft Tissue Mobility, Strength Goals Four Impairment use of FWW; 2 MWT distance 131 ft with FWW Short Term Goal (STG) Pt will normalize gait mechanics using LRAD if appropriate with L knee pain < 3/10 in order to demonstrate improved tolerance for gait and decreased fall risk 12/21/24: step through pattern with FWW; CGA and moderate cueing with spc, needs cueing for sequencing/placement/ safety but no increased pain 01/02/25: Pt requires cueing for ambulation w/ SPC in RUE for scuffing feet, placement w / turns R>L, and sit to stands - improves from mod cues to min cues by end of session. 01/11/25: improved speed, mechanics, and control of 4ww; no knee pain STG Duration 6 weeks MET 01/11 Relocation Associate Goal (LTG) Pt will be able to complete 6 MWT >1100 ft (pre-op 6 MWT distance) in order to demonstrate improved tolerance for family ambulation outings . 01/23/25: Pt gait trains 1262 feet in 6 minutes with rollator today with good lisa, step-length and foot clearance and pt is able to talk with gait. Will keep goal to work on gait with SPC/ hurrycane. LTG Duration 4 weeks Three Impairment needs assist with transfers Short Term Goal (STG) Pt will be IND with bed transfers in order to demonstrate increased mobility 12/21/24: pt IND with bed mobility STG Duration 5 weeks MET 12/21 Mcc Goal (LTG) Pt will be able be able to complete 30 sec sit to stand test within age-related norm in order to demonstrate improved strength and endurance needed for cars and toilet/chair transfers 01/11/25: 10 STS from standard chair, no UE 01/23/25: Pt performs 12 reps STS from black plinth with arms across chest today. LTG Duration 12 weeks Two Impairment L knee strength impaired Short Term Goal (STG) Pt will increase L knee flex/ ext and global L hip strength to at least 4-/5 in order to demonstrate improved strength for gait, transfers, and stairs 12/21/24: 3+/5 MMT knee flex/ ext, pain w/ flex/ext STG Duration 8 weeks PROGRESSING 12/21 Relocation Associate Goal (LTG) Pt will increase L knee flex/ ext and global L hip strength to at least 4/5 in order to demonstrate improved strength for gait, transfers, and stairs. 01/23/25: Left knee flexion 4-/ 5 and left knee extension 4+/5 today, tested in supine. LTG Duration 12 weeks One Impairment L knee ROM lacking 10 deg ext to 107 deg flex Short Term Goal (STG) Pt will improve L knee ext to least lacking 5 deg and L knee flexion to at least 115 deg in order to improve ROM for gait and transfers 12/21/24: lacking 2 deg ext, 116 deg flex STG Duration 6 weeks MET 12/21 Mcc Goal (LTG) Pt will improve L knee ext to lacking 2 deg or less and L knee flexion AROM to at least 120 deg in order to improve ROM for gait and transfers 01/23/25: Left knee AROM in supine is 3-117 deg this date LTG Duration 12 weeks Assessment Summary Assessment Pt with extremely high BP after recumbent bicycle today with BP and HR in RUE: 175/95, 52. Checked again in supine after SLR and rest break in RUE and 156/102, 51. PT manually palpates right radial pulse and it is very irregular. Ed pt and as documented above and asked to communicate with Dr. Mayorga office and PT will send this note to him. Pt has cardiology appointment in two days and Dr. Mayorga last saw pt for HTN 01/18/25, so this is known and treated. Pt on many medications and pt nor know all he is taking and when . Ed pt and to learn when he is taking any BP medications and to check BP before and after meds to see if BP meds are helping. One more PT treatment. If he con't with severely high BP, will d /c PT. Physical Therapy Plan Frequency and Duration Frequency of Treatment 2x/Week Duration of treatment (weeks) 12 Plan of Care Start Date 11/23/24 Plan of Care End Date 02/16/25 Therapeutic Interventions Therapeutic Interventions Balance Training,Gait Training ,Home Exercise Program,Joint Mobilizations,Manual Therapy, Neuromuscular Re-education, Orthotic/Prosthetic Management ,Patient/Caregiver Education, Self-Care/Home Management, Sensory Integration,Soft Tissue Mobilization,Taping, Therapeutic Activities, Therapeutic Exercises Modalities Cold Pack/Ice Massage,Electric Stimulation,Hot Packs, Ultrasound Next Visit Focus/Plan Next Note Type Treatment Note Next Visit Plan D/c PT if BP con't to be severely high Gait training with SPC/ hurrycane, stair training ( quick turns are unsteady, and cane placement descending stairs continues to require cues) Review as needed Balance assessment Tug and SLS done possibly MARTEL/ DGI next session. and training/ exercises Manual therapy as needed for LLE
--- NOTE | 2025-02-04 08:21 | PT.OPDS ---
Current Diagnoses Unilateral primary osteoarthritis, left knee (01/30/25) Stiffness of left knee, not elsewhere classified (01/30/25) Other lack of coordination (01/30/25) Weakness (01/30/25) Visit Care Team Role Provider Type Tyshawn Abdullahi DO Referring Provider Physician Specialty: Interventional Radiology Physiatry Pain Management Address: [address] [place], [address] Email: [email or web address] Chriss Mayorga MD Family Provider Physician Primary Care Provider Specialty: Internal Medicine Address: [address] [place] [address], [address], [place], [address] Email: [email or web address] Chhaya Conteh MD Attending Provider Physician Specialty: Orthopedics Orthopedic Surgery Address: [address] [place] [address], [address] Email: [email or web address] Visit Number Visit Number 19 Discharge Summary PT-OP-B Current Condition Start: 11/23/24 08:05 Freq: Status: Active Protocol: Document 11/23/24 14:31 NM (Rec: 11/23/24 15:59 NM [id number]) Current Condition History of Current Condition Onset Date DOS 11/15/24 Current Complaints pain, swelling, weakness, poor mobility, balance History of Current Condition Pt presents following L TKA on 11/15/24. Surgeon Dr. Conteh. Pt spent 2 days in hospital post surgery due to high heart rate, low blood pressure. Has since resolved. Pt also recently when to ED due to constipation following surgery . No dizziness, lightheadedness. present at evaluation and assisting with providing hx. Pt presents in manual wheelchair due to poor activity tolerance following several appt today, brought FWW. 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 Has been using FWW for mobility since surgery. Pt has 2 steps to enter home, L hand rail; stairs in home but does not use. Lives with . Bedroom is downstairs. Has 2 week follow up next week. No falls, no knee buckling since surgery. Has been performing HEP provided by hospital. Sleeping a temporary bed or recliner at home, has had leg propped up with knee bent. Has been icing several times ea day. is concerned about pt getting up at night alone to use bathroom as concerned about falls due to pain. Has been having adult kids help with nighttime care. Has not been wearing compression socks or hose; unsure if supposed to wear compression. Prior Treatments and Tests Previous PT prior to surgery Treatment Goals Patient/Caregiver Goals walks with family, get out in the shop, lawnmower PT-OP-C Subjective Start: 11/23/24 08:05 Freq: Status: Active Protocol: Document 01/30/25 15:17 MB (Rec: 01/30/25 16:08 MB [id number]) OP-PT Subjective Patient Comments Patient Comments Pt c/o having fat legs. states that Dr. Mayorga cleared compression hose but she just hasn't gotten them yet. PT-OP-D Balance Start: 11/23/24 08:05 Freq: Status: Active Protocol: Document 01/26/25 10:42 AB (Rec: 01/26/25 11:55 AB [id number]) Balance Tests Single Limb Standing Single Limb- Right 13 Single Limb- Left 14 PT-OP-E Functional Tests Start: 12/26/24 16:48 Freq: Status: Active Protocol: Document 01/26/25 10:42 AB (Rec: 01/26/25 11:56 AB [id number]) Functional Tests Timed Up and Go (TUG) Score 12.20 sec Comments without device, required CGA on turn excessive trunk lean, UE use for sit t TUG Impairment Rating 20 to <40% Impaired (Score 12- 13) PT-OP-F Manual Assessment Start: 11/23/24 08:05 Freq: Status: Active Protocol: Document 11/23/24 14:31 NM (Rec: 11/23/24 15:59 NM [id number]) Manual Assessments Soft Tissue Assessment Soft Tissue Mobility Assessment Tightness and tenderness of L calf, hamstring, and hip flexors Joint Mobility Assessment Joint Mobility Assessment Decreased L knee PROM and AROM secondary to pain, swelling, and weakness. Limited active ankle mobility and hip mobility due to pain PT-OP-G Mobility & Gait Start: 11/23/24 08:05 Freq: Status: Active Protocol: Document 11/23/24 14:31 NM (Rec: 11/23/24 15:59 NM [id number]) OP Mobility Evaluation Bed Mobility Rolling Able to roll IND Supine to and from Sit Needs min A to lift LLE onto table but able to initiate 75% of motion Close SBA to assist with lowering LLE from table due to pain Transfers Sit to Stand CGA; Requires BUE assist to stand to FWW, 1 hand assist to sit. Maintains BLE equidistant, needs cueing for eccentric control OP Gait Assessment Gait Gait Assistance Required: Contact Guard Assist Distance (Feet) 131 Assistive Devices Assistive Device Gait Belt,Front Wheeled Walker Gait Deviations General Gait Pattern Antalgic,Decreased Feet Clearance Factors Limiting Gait Function Factors Limiting Gait Function Decreased Activity Tolerance, Decreased Strength,Limited Range of Motion,Pain PT-OP-J Posture/Palpation/Skin Start: 11/23/24 08:05 Freq: Status: Active Protocol: Document 11/23/24 14:31 NM (Rec: 11/23/24 15:59 NM [id number]) Palpation Assessment Location L knee Palpation Findings Edema,Tenderness Palpation Details Swelling present around knee, calf and thigh; will measure next session Tenderness in quad, hamstring Skin Assessment Incisional Assessment Incision Appearance/Comments Incision covered by intact bandage. No bleeding or drainage evident through bandage Other Assessments Skin Assessment Comments Swelling in LLE compared to RLE but no signs or symptoms of infection or DVT PT-OP-K Range of Motion Start: 11/23/24 08:05 Freq: Status: Active Protocol: Document 12/21/24 12:59 NM (Rec: 12/21/24 13:50 NM [id number]) Knee Goniometric Range of Motion Knee Right Flexion Active (degrees) 124 Extension Active (degrees) 0 Left Flexion Active (degrees) 116 Extension Active (degrees) 2 Extension Passive (degrees) 0 Comments limited by pain PT-OP-M Strength Start: 11/23/24 08:05 Freq: Status: Active Protocol: Document 12/21/24 12:59 NM (Rec: 12/21/24 13:50 NM [id number]) Hip Strength Hip Manual Muscle Testing Right Flexion (L2) 4 Good Extension (S1) 4 Good Abduction 4 Good Adduction 4 Good External Rotation 4 Good Internal Rotation 4 Good Left Flexion (L2) 4- Good- Extension (S1) 4- Good- Abduction 4- Good- Adduction 4- Good- External Rotation 4- Good- Internal Rotation 4- Good- Comments limited by pain Knee Strength Knee Manual Muscle Testing Right Flexion (S2) 4 Good Extension (L3) 4 Good Left Flexion (S2) 3+ Fair+ Extension (L3) 3+ Fair+ Comments 12/21/24: pain with resisted flex/ext IE: 3-/5 MMT, limited by pain; did not assess with resistance to protect surgical repair PT-OP-T Assessment and Plan Start: 11/23/24 08:05 Freq: Status: Active Protocol: Document 02/04/25 08:13 MB (Rec: 02/04/25 08:21 MB [id number]) Physical Therapy Assessment Assessment Summary Assessment Pt leaves BP measurements with front office and they con't to be high. Pt has stress test this week. PT calls pt and decision is to d/c PT at this time given ongoing HTN issues and cardiac work-up. Pt is going to con't HEP at home.
== END 2025-02-05 13:27 | disposition home or self-care (01) ==
LOC: PHYS 15:15
PROVIDERS: Family Provider Internal Medicine; PCP Internal Medicine; Referring Provider Physical Medicine & Rehabilitation; Visit Provider Orthopaedic Surgery Foot and Ankle Surgery
DX: M17.12 Unilateral primary osteoarthritis, left knee (principal); M25.662 Stiffness of left knee, not elsewhere classified; R53.1 Weakness; R27.8 Other lack of coordination
CPT/HCPCS: 97110; 97112; 97116; 97140; 97161; 97530; 97535

== ENCOUNTER → 2025-02-21 09:22 | Outpatient (CLI) | payer MEDICARE, SELFPAY ==
[2024-12-20 09:45] VITALS: BMI 24.0
[2025-02-21 10:49] LABS: Prostate Specific Antigen < 0.064 ng/mL (0.10-4.00)
== END ==
PROVIDERS: Family Provider Internal Medicine; PCP Internal Medicine; Referring Provider Urology; Visit Provider Urology
DX: C61 Malignant neoplasm of prostate (principal); Z79.818 Long term (current) use of other agents affecting estrogen receptors and estrogen levels
CPT/HCPCS: 36415; 84153

== ENCOUNTER → 2025-03-14 10:08 | Outpatient (CLI) | payer MEDICARE, SELFPAY ==
[2024-12-20 09:45] VITALS: BMI 24.0
--- NOTE | 2025-03-14 10:10 | DI.RAD.S_ITS ---
PROCEDURE: XR LUMBAR SPINE MIN 4V INDICATIONS: BACK PAIN TECHNIQUE: 5 views of the lumbar spine were acquired, including bilateral oblique views. COMPARISON: [facility], CR, XR LUMBAR SPINE 2 OR 3 VIEWS, 06/23/2023, 11:58. , CR, L-SPINE 2-3 VIEWS, 10/14/2017, 14:45. FINDINGS: Bones: 5 nonrib-bearing vertebrae are present. Levo scoliotic curvature. Grade 1 retrolisthesis of L2 on L3 and L3 on L4. Grade 1 anterolisthesis of L4 on L5. Minimal age-indeterminate height loss of T12 and L1 vertebral bodies. No suspicious bony lesions. There is multilevel facet arthropathy, worse at L4-5 and L5-S1. Multilevel disc height loss with degenerative endplate changes and spurring is present. Decreased osseous mineralization. Soft tissues: Overlying bowel gas pattern is normal. No suspicious soft tissue calcifications. Aorta bi-iliac stenting in place. Multiple surgical clips projecting over the abdomen and pelvis. Oblique images: No definite pars defects, however evaluation is limited due to decreased osseous mineralization, degenerative changes and overlying stent. IMPRESSION: Multilevel degenerative changes of the lumbar spine with levo scoliotic curvature. Minimal age-indeterminate height loss of T12 and L1 vertebral bodies. T12 appears stable compared to prior 2013 exam, L1 may be mildly progressed. Dictated by: Jus Valverde M.D. on 03/14/2025 at 10:29 Approved by: Jus Valverde M.D. on 03/14/2025 at 10:33
== END ==
PROVIDERS: Family Provider Internal Medicine; PCP Internal Medicine; Referring Provider Physical Medicine & Rehabilitation; Visit Provider Physical Medicine & Rehabilitation
DX: M47.816 Spondylosis without myelopathy or radiculopathy, lumbar region (principal); M47.817 Spondylosis without myelopathy or radiculopathy, lumbosacral region; M43.16 Spondylolisthesis, lumbar region; M48.062 Spinal stenosis, lumbar region with neurogenic claudication
CPT/HCPCS: 72110; 99214

== ENCOUNTER → 2025-03-15 09:28 | Outpatient (CLI) | payer MEDICARE, SELFPAY ==
[2024-12-20 09:45] VITALS: BMI 24.0
[2025-03-15 11:07] LABS: Alanine Aminotransferase 21 IU/L (<50); Albumin Globulin Ratio 1.9 (1.0-2.8); Alkaline Phosphatase 90 U/L (38-126); Aspartate Aminotransferase 33 IU/L (17-59); BUN Creatinine Ratio 27.5 (6-22); Blood Urea Nitrogen 22 mg/dL (9-20); Calcium 9.8 mg/dL (8.4-10.2); Carbon Dioxide 28 mmol/L (22-32); Chloride 107 mmol/L (98-107); Estimated Glomerular Filt Rate > 60 mL/min (>60); Globulin 2.1 g/dL (1.7-4.1); Glucose 107 mg/dL (70-99); HEMOLYSIS < 15 (0-50); Potassium 3.5 mmol/L (3.4-5.1); Sodium 142 mmol/L (137-145); Total Protein 6.1 g/dL (6.3-8.2)
== END ==
PROVIDERS: Family Provider Internal Medicine; PCP Internal Medicine; Referring Provider Internal Medicine Cardiovascular Disease; Visit Provider Internal Medicine Cardiovascular Disease
DX: I10 Essential (primary) hypertension (principal)
CPT/HCPCS: 36415; 80053

== ENCOUNTER → 2025-04-27 11:15 | Outpatient (CLI) | payer MEDICARE, SELFPAY ==
[2024-12-20 09:45] VITALS: BMI 24.0
[2025-04-27 12:52] LABS: BUN Creatinine Ratio 42.9 (6-22); Blood Urea Nitrogen 48 mg/dL (9-20); Calcium 9.5 mg/dL (8.4-10.2); Carbon Dioxide 34 mmol/L (22-32); Chloride 95 mmol/L (98-107); Estimated Glomerular Filt Rate > 60 mL/min (>60); Glucose 155 mg/dL (70-99); HEMOLYSIS < 15 (0-50); Magnesium 1.8 mg/dL (1.6-2.3); Potassium 2.9 mmol/L (3.4-5.1); Sodium 138 mmol/L (137-145)
== END ==
PROVIDERS: Family Provider Internal Medicine; PCP Internal Medicine; Referring Provider Internal Medicine; Visit Provider Internal Medicine
DX: I50.32 Chronic diastolic (congestive) heart failure (principal); R60.0 Localized edema
CPT/HCPCS: 36415; 80048; 83735

== ENCOUNTER → 2025-05-15 12:15 | Outpatient (CLI) | payer MEDICARE, SELFPAY ==
[2024-12-20 09:45] VITALS: BMI 24.0
[2025-05-15 14:17] LABS: Prostate Specific Antigen < 0.064 ng/mL (0.10-4.00)
[2025-05-15 14:27] LABS: Blood Urea Nitrogen 68 mg/dL (9-20); Calcium 10.1 mg/dL (8.4-10.2); Carbon Dioxide 35 mmol/L (22-32); Chloride 98 mmol/L (98-107); Estimated Glomerular Filt Rate 43 mL/min (>60); Glucose 78 mg/dL (70-99); HEMOLYSIS < 15 (0-50); Magnesium 1.9 mg/dL (1.6-2.3); Potassium 4.0 mmol/L (3.4-5.1); Sodium 141 mmol/L (137-145)
== END ==
PROVIDERS: Urology; Family Provider Internal Medicine; PCP Internal Medicine; Referring Provider Internal Medicine; Visit Provider Internal Medicine
DX: C61 Malignant neoplasm of prostate (principal); I10 Essential (primary) hypertension; E87.6 Hypokalemia
CPT/HCPCS: 36415; 80048; 83735; 84153

== ENCOUNTER → 2025-05-29 08:20 | Outpatient (CLI) | payer MEDICARE, SELFPAY ==
[2024-12-20 09:45] VITALS: BMI 24.0
[2025-05-29 09:52] LABS: Prostate Specific Antigen < 0.064 ng/mL (0.10-4.00)
== END ==
PROVIDERS: Urology; Family Provider Internal Medicine; PCP Internal Medicine; Referring Provider Internal Medicine; Visit Provider Internal Medicine
DX: C61 Malignant neoplasm of prostate (principal)
CPT/HCPCS: 36415; 84153

== ENCOUNTER 2025-06-06 01:55 | Emergency (ER) | payer MEDICARE, SELFPAY ==
[2024-12-20 09:45] VITALS: BMI 24.0
[2025-06-06 01:57] VITALS: BP 91/51; PULSE 54; RESP 15; TEMP 37.1; O2SAT 99; BMI 23.0
--- NOTE | 2025-06-06 02:03 | ED.TRAUMA ---
HPI - Trauma General Chief Complaint: Fall Stated Complaint: R rib pain Time Seen by Provider: 06/06/25 01:59 Source: patient Mode of arrival: Ambulatory History of Present Illness HPI narrative: 89-year-old male patient with a history of CAD, dyslipidemia, hypertension, BPH lumbar stenosis who fell 3 days ago and injured his right ribcage. No other complaint. Related Data Home Medications ?Medication ?Instructions ?Recorded ?Confirmed glucosamine HCl 1,500 mg tablet 1,500 mg PO BID 11/20/21 05/31/25 docusate sodium 100 mg capsule 100 mg PO DAILY PRN Constipation 05/03/23 05/31/25 fluorouracil 5 % topical cream 1 applic topical BID 07/21/23 05/31/25 cholecalciferol (vitamin D3) 50 50 mcg PO DAILY 02/28/24 05/31/25 mcg (2,000 unit) capsule fluocinonide 0.05 % topical 1 applic topical BID 02/28/24 05/31/25 ointment atorvastatin 80 mg tablet 80 mg PO DAILY 08/16/24 05/31/25 acetaminophen 650 mg 650 mg PO DAILY PRN Pain (Scale 09/27/24 05/31/25 tablet,extended release Score 1-3) omega 3-khn-qaq-fish oil 1,200 mg 2 cap PO DAILY 09/27/24 05/31/25 (144 mg-216 mg) capsule (Fish Oil) cyclosporine 0.05 % eye drops in a 1 drp EYE-BOTH BID 12/20/24 05/31/25 dropperette lisinopril 20 mg tablet 20 mg PO BID 02/12/25 05/31/25 aspirin 81 mg capsule 81 mg PO DAILY 05/15/25 05/31/25 Previous Rx's ?Medication ?Instructions ?Recorded alfuzosin 10 mg tablet,extended 10 mg PO DAILY #90 tabs 05/17/24 release 24 hr tramadol 50 mg tablet 50 mg PO BID PRN pain #42 tabs 06/12/24 vibegron 75 mg tablet (Gemtesa) 75 mg PO DAILY #30 tabs 03/06/25 torsemide 20 mg tablet 20 mg PO BID #180 tabs 03/20/25 gabapentin 300 mg capsule 300 mg PO TID PRN nerve pain #90 04/06/25 caps potassium chloride 20 mEq See Rx Instructions PO .COMPLEX 04/27/25 tablet,extended release #180 tabs metolazone 2.5 mg tablet 2.5 mg PO .q 3 day #30 tabs 05/15/25 Allergies Allergy/AdvReac Type Severity Reaction Status Date / Time simvastatin (SIMVASTATIN) AdvReac Mild MUSCLE Verified 06/06/25 01:57 ACHES Review of Systems Review of Systems ROS Unobtainable: All systems reviewed & are unremarkable except as noted in HPI and below Constitutional Constitutional: Reports system reviewed and no additional complaints, except as documented Cardiovascular Cardiovascular: Denies chest pain and Denies syncope Respiratory Respiratory: Reports pain on inspiration and Reports pain with cough Gastrointestinal Gastrointestinal: Denies abdominal pain Musculoskeletal Musculoskeletal: Reports system reviewed and no additional complaints, except as documented Neurologic Neurologic: Denies syncope Patient History Medical History Chronic diastolic heart failure with preserved ejection fraction History of radiation therapy Persistent atrial fibrillation Nocturia Constipation A-fib PAD (peripheral artery disease) History of myocardial infarction 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) (07/19/12) History of COVID-19 (2023) Arthritis Spinal stenosis Skin cancer History of TIAs HTN (hypertension) 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) Androgen deprivation therapy Mild neurocognitive disorder Peripheral edema Paroxysmal atrial fibrillation (~04/2023) Current use of nursing home anticoagulation Facet arthropathy, lumbar Overactive bladder Prostate cancer Asymptomatic microscopic hematuria Spondylolisthesis at L4-L5 level Lumbar stenosis with neurogenic claudication Left knee DJD Urinary Incontinence BPH w urinary obs/LUTS Benign essential HTN (09/22/11) Hyperlipidemia, mixed (09/22/11) Bilateral cataracts Status post repair of abdominal aortic aneurysm (AAA) using straight graft (09/21/17) History of endovascular stent graft for abdominal aortic aneurysm (AAA) (09/21/17) Coronary artery disease involving hoopa coronary artery of hoopa heart without angina pectoris (02/15/17) Abdominal aortic aneurysm (AAA) (06/24/15) Surgical History Status post left knee replacement (~11/2024) History of surgical procedure (07/30/17) History of surgical procedure (10/14/15) History of surgical procedure (10/07/15) History of surgical procedure (03/06/14) Hx of bilateral cataract extraction History of ear surgery History of knee replacement procedure of right knee H/O endovascular stent graft for abdominal aortic aneurysm (~06/2019) History of appendectomy Hx laparoscopic cholecystectomy History of coronary artery bypass graft x 3 (~12/2009) Family History Sister Cancer Social History marital status: number of children: 3 household members: spouse Smoking Status: Never smoker alcohol intake: current Type(s) of exercise: other frequency: 3-4 times per week Smoking Status: Never smoker alcohol intake frequency: holidays/special occasions only Exam Initial Vital Signs Initial Vital Signs: Vital Signs Temperature 98.8 F 06/06/25 01:57 Pulse Rate 54 L 06/06/25 01:57 Respiratory Rate 15 06/06/25 01:57 Blood Pressure 91/51 L 06/06/25 01:57 Pulse Oximetry 99 06/06/25 01:57 Oxygen Delivery Method Room Air 06/06/25 01:57 Const General: cooperative, healthy appearing, comfortable and well developed [facility] Head: normocephalic, atraumatic (Other than contusion mentioned to near the nose) and contusion (Slight contusion lateral to the nose on the right with no swelling) Eyes General: Yes appearance normal, both eyes and all related structures Pupils: PERRL EOM: EOM intact bilaterally Neck Neck: normal visual inspection and full ROM Chest Chest: localized rib tenderness with anteroposterior compression (Right lateral rib tenderness but no deformity. Mild tenderness with AP com) Resp Effort & Inspection: normal respiratory effort, able to speak in complete sentences and no grunting GI Palpation: soft and No tender Extrem Other: Remainder of the musculoskeletal exam of the axial spine and extremities reveals no bony tenderness or deformity. Course Orders Ordered: ED Orders 06/06/25 02:05 XR ribs RT min 3V w CXR1V Stat Vital Signs Vital signs: Vital Signs - 8 hr 06/06/25 01:57 06/06/25 02:36 Temperature 98.8 F Pulse Rate 54 L 46 L Respiratory Rate 15 16 Blood Pressure 91/51 L 98/53 L Pulse Oximetry 99 99 Oxygen Delivery Method Room Air Room Air MDM - Trauma Imaging Data Right rib film: Attestation: I personally reviewed and interpreted this imaging study as follows: (No rib fracture evident. No pneumothorax) [facility] Narrative Medical decision making narrative: Accidental fall with right rib tenderness but no fracture evident. Probable right rib contusion or non visible fracture. Plan is pillow splint icing and [id number] pain medicine. Follow up with primary care. Return to the ER if worse Discharge Plan Departure Patient Disposition: Home Clinical Impression: Contusion of rib on right side Instructions: DI for Rib Contusion, How to Prevent Falls Activity Restrictions/Additional Instructions: Use [id number] pain medicine and pillow splinting as needed. Follow up with your doctor for further management. Prescriptions: No Action alfuzosin 10 mg tablet extended release 24 hr 10 mg PO DAILY Qty: 90 3RF Rx Instructions: administer after the same meal each day tramadol 50 mg tablet 50 mg PO BID PRN (Reason: pain) Qty: 42 1RF lisinopril 20 mg tablet 20 mg PO BID Gemtesa 75 mg tablet 75 mg PO DAILY Qty: 30 12RF gabapentin 300 mg capsule 300 mg PO TID PRN (Reason: nerve pain) Qty: 90 2RF potassium chloride 20 mEq tablet extended release See Rx Instructions PO .COMPLEX Qty: 180 0RF Rx Instructions: orally; ; Take 2 tabs three times a day for 1 day, then 1 twice a day after that torsemide 20 mg tablet 20 mg PO BID Qty: 180 0RF Rx Instructions: take in am, and again at noon docusate sodium 100 mg capsule 100 mg PO DAILY PRN (Reason: Constipation) aspirin 81 mg capsule 81 mg PO DAILY metolazone 2.5 mg tablet 2.5 mg PO .q 3 day Qty: 30 3RF acetaminophen 650 mg Tablet Extended Release 650 mg PO DAILY PRN (Reason: Pain (Scale Score 1-3)) omega 2-bed-kfh-fish oil [Fish Oil] 1,200 (144-216) mg Capsule 2 cap PO DAILY fluocinonide 0.05 % ointment 1 applic topical BID cholecalciferol (vitamin D3) 50 mcg (2,000 unit) capsule 50 mcg PO DAILY fluorouracil 5 % cream 1 applic topical BID atorvastatin 80 mg tablet 80 mg PO DAILY cyclosporine 0.05 % dropperette 1 drp EYE-BOTH BID glucosamine HCl 1,500 mg tablet 1,500 mg PO BID Rx Instructions: administer with a meal Referrals: Chriss Mayorga MD [Primary Care Provider, Internal Medicine] Stand Alone Forms: Patient Portal/API
--- NOTE | 2025-06-06 02:05 | DI.RAD.S_ITS ---
PROCEDURE: XR RIBS RT MIN 3V W CXR 1V INDICATIONS: Right chest wall/rib trauma TECHNIQUE: 3 views of the ribs were acquired, along with a single view chest. COMPARISON: None. FINDINGS: Surgical changes and devices: Median sternotomy wires are present and appear intact. Prior abdominal aortic stent graft. Surgical clips in right upper quadrant compatible with prior cholecystectomy. Surgical material/coiling in the right upper abdomen. Bones and chest wall: No acute, displaced rib fractures . No other acute fractures or dislocations. No suspicious bony lesions. Overlying soft tissues appear unremarkable. Lungs and pleura: No pleural effusions or pneumothorax. Lungs appear clear. Mediastinum: Mediastinal contours appear normal. Heart size is enlarged. IMPRESSION: No displaced rib fracture or pneumothorax. No acute cardiopulmonary abnormalities. Cardiomegaly. No significant discrepancy with the shift superintendent caustic cresylate radiology preliminary report. Dictated by: Angel Ziegler M.D. on 06/06/2025 at 7:34 Approved by: Angel Ziegler M.D. on 06/06/2025 at 7:37
[2025-06-06 02:36] VITALS: BP 98/53; PULSE 46; RESP 16; O2SAT 99
== END 2025-06-06 02:53 | disposition home or self-care (01) ==
PROVIDERS: Emergency Provider Emergency Medicine; Family Provider Internal Medicine; PCP Internal Medicine
DX: S20.211A Contusion of right front wall of thorax, initial encounter (principal); W01.198A Fall on same level from slipping, tripping and stumbling with subsequent striking against other object, initial encounter
CPT/HCPCS: 71101; 99281; 99283

== ENCOUNTER → 2025-06-19 12:31 | Outpatient (CLI) | payer MEDICARE, SELFPAY ==
[2024-12-20 09:45] VITALS: BMI 24.0
[2025-06-19 14:18] LABS: Blood Urea Nitrogen 69 mg/dL (9-20); Calcium 10.7 mg/dL (8.4-10.2); Carbon Dioxide 31 mmol/L (22-32); Chloride 97 mmol/L (98-107); Estimated Glomerular Filt Rate 41 mL/min (>60); Glucose 90 mg/dL (70-99); HEMOLYSIS < 15 (0-50); Potassium 4.2 mmol/L (3.4-5.1); Sodium 141 mmol/L (137-145)
[2025-06-19 14:53] LABS: Prostate Specific Antigen < 0.064 ng/mL (0.10-4.00)
== END ==
PROVIDERS: Urology; Family Provider Internal Medicine; PCP Internal Medicine; Referring Provider Internal Medicine; Visit Provider Internal Medicine
DX: C61 Malignant neoplasm of prostate (principal); I10 Essential (primary) hypertension; R60.0 Localized edema
CPT/HCPCS: 80048; 84153

== ENCOUNTER 2025-06-28 14:30 | Outpatient (RCR) | payer MEDICARE, SELFPAY ==
[2024-12-20 09:45] VITALS: BMI 24.0
--- NOTE | 2025-04-06 18:12 | PT.OIE ---
Addendum entered and electronically signed by Nakita Pagan PT 04/13/25 17:53: Physical Therapy Plan Frequency and Duration Frequency of 2x/Week Treatment Duration of 12 treatment (weeks) Plan of Care Start 04/06/25 Date Plan of Care End 06/29/25 Date Therapeutic Interventions Therapeutic Balance Training,Gait Training,Home Exercise Program, Interventions Joint Mobilizations,Lymphedema Management,Manual Therapy,Neuromuscular Re-education,Patient/Caregiver Education,Soft Tissue Mobilization,Therapeutic Activities,Therapeutic Exercises Modalities Cold Pack/Ice Massage,Hot Packs,Ultrasound Original Note: Current Diagnoses Bilateral primary osteoarthritis of knee (04/06/25) Presence of left artificial knee joint (04/06/25) Past Medical History (Last Updated 03/20/25 @ 11:29 by Chriss Mayorga MD) A-fib Abdominal aortic aneurysm (AAA) (06/24/15) Androgen deprivation therapy Arthritis Asymptomatic microscopic hematuria Benign essential HTN (09/22/11) Bilateral cataracts BPH w urinary obs/LUTS Chronic diastolic heart failure with preserved ejection fraction Constipation Coronary artery disease involving [place] coronary artery of [place] heart without angina pectoris (02/15/17) Current use of group home anticoagulation 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) (07/19/12) Facet arthropathy, lumbar History of COVID-19 (2023) History of endovascular stent graft for abdominal aortic aneurysm (AAA) (09/21/17) History of myocardial infarction History of radiation therapy History of TIAs HTN (hypertension) Hyperlipidemia, mixed (09/22/11) Left knee DJD Lumbar stenosis with neurogenic claudication Mild neurocognitive disorder Nocturia Overactive bladder PAD (peripheral artery disease) Paroxysmal atrial fibrillation (~04/2023) Peripheral edema Persistent atrial fibrillation 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) Prostate cancer Skin cancer Spinal stenosis Spondylolisthesis at L4-L5 level Status post repair of abdominal aortic aneurysm (AAA) using straight graft (09/21/17) Urinary Incontinence Past Surgical History (Last Reviewed 03/14/25 @ 11:14 by Tyshawn Abdullahi DO) H/O endovascular stent graft for abdominal aortic aneurysm (~06/2019) History of appendectomy History of coronary artery bypass graft x 3 (~12/2009) History of ear surgery History of knee replacement procedure of right knee History of surgical procedure (03/06/14) History of surgical procedure (10/07/15) History of surgical procedure (10/14/15) History of surgical procedure (07/30/17) Hx laparoscopic cholecystectomy Hx of bilateral cataract extraction Status post left knee replacement (~11/2024) Visit Care Team Role Provider Type Chriss Mayorga MD Family Provider Physician Primary Care Provider Specialty: Internal Medicine Address: [address] [place] [address], [address], [place], [address] Email: [email or web address] Chhaya Conteh MD Attending Provider Physician Referring Provider Specialty: Orthopedics Orthopedic Surgery Address: [address] [place] [address], [place], [address] Email: [email or web address] Physical Therapy Initial Evaluation PT-OP-A Visit Information Start: 04/06/25 12:14 Freq: Status: Active Protocol: Document 04/06/25 12:14 CLOSING MACHINE OPERATOR (Rec: 04/06/25 18:12 CLOSING MACHINE OPERATOR Laptop) Out-Patient Physical Therapy Visit Information Visit Information Visit Type Initial Evaluation Visit Start Time 13:02 Visit Stop Time 13:50 Visit Number 1 Number of DENTIST PRIVATE PRACTICE Visits 0 Evaluation Information Evaluation Date 04/06/25 Precautions Precautions Monitor BP, Fall risk PT-OP-B Current Condition Start: 04/06/25 12:14 Freq: Status: Active Protocol: Document 04/06/25 12:14 CLOSING MACHINE OPERATOR (Rec: 04/06/25 18:12 CLOSING MACHINE OPERATOR Laptop) Current Condition History of Current Condition Onset Date L TKA 11/15/24 Current Complaints LLE edema, balance, LLE strength History of Current Condition Pt amb into session with 4WW and with spouse. Had a L knee replacement 11/15 and had OP PT here at [facility] but was unable to finish d/t high BP and was D/C mid February 2025. Reports issues with edema in LLE but has improved to almost same size as RLE in the mornings. Pt has been logging BP 2x/daily and with consistent levels. Has 2 steps to get into house via porch with railing on L side, reports no difficulty with them. Has been working on home HEP since D/C from PT. Reports no pain in LLE but has tightness/zinging feeling in R thigh. Has difficulty getting into tall bed and steps on step stool. Lifts LLE with BUEs to get in/out of car and bed. No falls since surgery. Prior Treatments and Tests R TKA ~20 years ago. Treatment Goals Patient/Caregiver Goals Would like to walk without AD or with a cane and would like to drive again. PT-OP-C Subjective Start: 04/06/25 12:14 Freq: Status: Active Protocol: Document 04/06/25 12:14 CLOSING MACHINE OPERATOR (Rec: 04/06/25 18:12 CLOSING MACHINE OPERATOR Laptop) Patient Questionnaires Lower Extremity Functional Scale LEFS Score 41/80 PT-OP-D Balance Start: 04/06/25 12:14 Freq: Status: Active Protocol: Document 04/06/25 12:14 CLOSING MACHINE OPERATOR (Rec: 04/06/25 18:12 CLOSING MACHINE OPERATOR Laptop) Balance Tests Single Limb Standing Single Limb- Right 16s with post LOB Single Limb- Left 4s PT-OP-G Mobility & Gait Start: 04/06/25 12:14 Freq: Status: Active Protocol: Document 04/06/25 12:14 CLOSING MACHINE OPERATOR (Rec: 04/06/25 18:12 CLOSING MACHINE OPERATOR Laptop) OP Gait Assessment Comments Gait Comments Amb with 4WW, slight flexion at B hips, steady without LOB PT-OP-K Range of Motion Start: 04/06/25 12:14 Freq: Status: Active Protocol: Document 04/06/25 12:14 CLOSING MACHINE OPERATOR (Rec: 04/06/25 18:12 CLOSING MACHINE OPERATOR Laptop) Hip Goniometric Range of Motion Hip ROM Limitations Hip ROM Limitations Soft Tissue Tightness Comments L hip ext: active to midline only R hip ext: Heel to butt: R 18, L 17 Knee Goniometric Range of Motion Knee L Knee ROM WFL No Patient Position Supine Flexion Active (degrees) 107 Extension Passive (degrees) 6 R Knee ROM WFL Yes Patient Position Supine Flexion Active (degrees) 120 Extension Passive (degrees) 2 PT-OP-M Strength Start: 04/06/25 12:14 Freq: Status: Active Protocol: Document 04/06/25 12:14 CLOSING MACHINE OPERATOR (Rec: 04/06/25 18:12 CLOSING MACHINE OPERATOR Laptop) Hip Strength Hip Manual Muscle Testing L Flexion (L2) 4- Good- Extension (S1) 3+ Fair+ Abduction 3- Fair- R Flexion (L2) 4 Good Extension (S1) 3- Fair- Abduction 3- Fair- Knee Strength Knee Manual Muscle Testing L Flexion (S2) 4+ Good+ Extension (L3) 5 Normal R Flexion (S2) 4+ Good+ Extension (L3) 5 Normal Ankle/Foot Strength Ankle and Foot Manual Muscle Testing L Dorsiflexion (L4) 4+ Good+ R Dorsiflexion (L4) 5 Normal PT-OP-T Assessment and Plan Start: 04/06/25 12:14 Freq: Status: Active Protocol: Document 04/06/25 12:14 CLOSING MACHINE OPERATOR (Rec: 04/06/25 18:12 CLOSING MACHINE OPERATOR Laptop) Physical Therapy Assessment Rehab Potential Rehabilitation Potential Excellent Evaluation Complexity Number of Personal Factors/Comorbidities 1-2 Number of Body Systems Impaired 3 Clinical Presentation at Evaluation Stable Impairments Impairments Activity Tolerance,Balance, Edema,Functional Activities, Functional Mobility,Gait,ROM, Soft Tissue Mobility,Strength Goals 3 Impairment Balance Short Term Goal (STG) Pt will improve improved balance with SLS of 30s on each LE on even ground without UE support to improve safety and function STG Duration 5 weeks Senior Living Goal (LTG) Pt will demonstrate gait 150' on even and uneven ground without AD without LOB for improved function. LTG Duration 10 weeks 2 Impairment Strength Impairment Decreased B hip strength Short Term Goal (STG) Pt will improve B hip strength by 1 MMT points to improve function STG Duration 5 weeks Senior Living Goal (LTG) Pt will improve B hip strength by 3 MMT points to improve function LTG Duration 10 weeks 1 Impairment ROM Impairment L knee ROM Senior Living Goal (LTG) Pt will improve L knee ROM to reach 0 degrees of passive ext and 120 degrees of active flexion to improve function. LTG Duration 10 weeks Assessment Summary Assessment Pt presents with moderately decreased L knee ROM, significantly decreased B hip ROM especially hip flexors and quads, mod-high weakness in B hips, and decreased balance. Pt demonstrated through daily logs stable BP over past few weeks and is highly motivated to continue progressing with PT. Pt will highly benefit from skilled PT intervention to address deficits and improve function and safety.
--- NOTE | 2025-04-06 18:13 | PT.OPPOC ---
Physical, Occupational & Speech Therapy At [facility] Current Diagnoses Bilateral primary osteoarthritis of knee (04/06/25) Presence of left artificial knee joint (04/06/25) Visit Care Team Role Provider Type Chriss Mayorga MD Family Provider Physician Primary Care Provider Specialty: Internal Medicine Address: [address] [place] [address], [address], [place], [address] Email: [email or web address] Chhaya Conteh MD Attending Provider Physician Referring Provider Specialty: Orthopedics Orthopedic Surgery Address: [address] [place] [address], [place], [address] Email: [email or web address] Plan Of Care PT-OP-B Current Condition Start: 04/06/25 12:14 Freq: Status: Active Protocol: Document 04/06/25 12:14 PSYCHIATRIC ORDERLY (Rec: 04/06/25 18:12 PSYCHIATRIC ORDERLY Laptop) Current Condition History of Current Condition Onset Date L TKA 11/15/24 Current Complaints LLE edema, balance, LLE strength History of Current Condition Pt amb into session with 4WW and with spouse. Had a L knee replacement 11/15 and had OP PT here at [facility] but was unable to finish d/t high BP and was D/C mid February 2025. Reports issues with edema in LLE but has improved to almost same size as RLE in the mornings. Pt has been logging BP 2x/daily and with consistent levels. Has 2 steps to get into house via porch with railing on L side, reports no difficulty with them. Has been working on home HEP since D/C from PT. Reports no pain in LLE but has tightness/zinging feeling in R thigh. Has difficulty getting into tall bed and steps on step stool. Lifts LLE with BUEs to get in/out of car and bed. No falls since surgery. Prior Treatments and Tests R TKA ~20 years ago. Treatment Goals Patient/Caregiver Goals Would like to walk without AD or with a cane and would like to drive again. PT-OP-T Assessment and Plan Start: 04/06/25 12:14 Freq: Status: Active Protocol: Document 04/06/25 12:14 PSYCHIATRIC ORDERLY (Rec: 04/06/25 18:12 PSYCHIATRIC ORDERLY Laptop) Physical Therapy Assessment Rehab Potential Rehabilitation Potential Excellent Evaluation Complexity Number of Personal Factors/Comorbidities 1-2 Number of Body Systems Impaired 3 Clinical Presentation at Evaluation Stable Impairments Impairments Activity Tolerance,Balance, Edema,Functional Activities, Functional Mobility,Gait,ROM, Soft Tissue Mobility,Strength Goals 3 Impairment Balance Short Term Goal (STG) Pt will improve improved balance with SLS of 30s on each LE on even ground without UE support to improve safety and function STG Duration 5 weeks Velocity Shooter Goal (LTG) Pt will demonstrate gait 150' on even and uneven ground without AD without LOB for improved function. LTG Duration 10 weeks 2 Impairment Strength Impairment Decreased B hip strength Short Term Goal (STG) Pt will improve B hip strength by 1 MMT points to improve function STG Duration 5 weeks [facility] Goal (LTG) Pt will improve B hip strength by 3 MMT points to improve function LTG Duration 10 weeks 1 Impairment ROM Impairment L knee ROM Velocity Shooter Goal (LTG) Pt will improve L knee ROM to reach 0 degrees of passive ext and 120 degrees of active flexion to improve function. LTG Duration 10 weeks Assessment Summary Assessment Pt presents with moderately decreased L knee ROM, significantly decreased B hip ROM especially hip flexors and quads, mod-high weakness in B hips, and decreased balance. Pt demonstrated through daily logs stable BP over past few weeks and is highly motivated to continue progressing with PT. Pt will highly benefit from skilled PT intervention to address deficits and improve function and safety. Electronically Signed by: Nakita Pagan, PT 04/06/25 [id number] If you are in agreement with this Plan of Care, please return a signed and dated copy. I have reviewed this Plan of Care and certify that the skilled therapy services above are required to meet the patient?s needs. Physician Signature Date Printed Name and Credentials Clinical Instructor Signature Printed Name and Credentials
--- NOTE | 2025-04-11 16:19 | PT.OTN ---
Current Diagnoses Bilateral primary osteoarthritis of knee (04/11/25) Presence of left artificial knee joint (04/11/25) Physical Therapy Treatment Note PT-OP-A Visit Information Start: 04/06/25 12:14 Freq: Status: Active Protocol: Document 04/11/25 14:35 MAILROOM COORDINATOR (Rec: 04/11/25 16:19 MAILROOM COORDINATOR Laptop) Out-Patient Physical Therapy Visit Information Visit Information Visit Type Treatment Note Visit Start Time 14:35 Visit Stop Time 15:15 Visit Number 2 Number of CAB STARTER Visits 0 Precautions Precautions Monitor BP, Fall risk PT-OP-B Current Condition Start: 04/06/25 12:14 Freq: Status: Active Protocol: Document 04/06/25 12:14 MAILROOM COORDINATOR (Rec: 04/06/25 18:12 MAILROOM COORDINATOR Laptop) Current Condition History of Current Condition Onset Date L TKA 11/15/24 Current Complaints LLE edema, balance, LLE strength History of Current Pt amb into session with 4WW and with spouse. Had a L Condition knee replacement 11/15 and had OP PT here at [facility] but was unable to finish d/t high BP and was D/C mid February 2025. Reports issues with edema in LLE but has improved to almost same size as RLE in the mornings . Pt has been logging BP 2x/daily and with consistent levels. Has 2 steps to get into house via porch with railing on L side, reports no difficulty with them. Has been working on home HEP since D/C from PT. Reports no pain in LLE but has tightness/zinging feeling in R thigh. Has difficulty getting into tall bed and steps on step stool. Lifts LLE with BUEs to get in/out of car and bed. No falls since surgery. Prior Treatments and R TKA ~20 years ago. Tests Treatment Goals Patient/Caregiver Would like to walk without AD or with a cane and would Goals like to drive again. PT-OP-C Subjective Start: 04/06/25 12:14 Freq: Status: Active Protocol: Document 04/11/25 14:35 MAILROOM COORDINATOR (Rec: 04/11/25 16:19 MAILROOM COORDINATOR Laptop) OP-PT Subjective Patient Comments Patient Comments Pt amb into session with 4WW, reports 4/10 pain in R knee, has still been working on previous HEP and has been going well. PT-OP-D Balance Start: 04/06/25 12:14 Freq: Status: Active Protocol: Document 04/06/25 12:14 MAILROOM COORDINATOR (Rec: 04/06/25 18:12 MAILROOM COORDINATOR Laptop) Balance Tests Single Limb Standing Single Limb- Right 16s with post LOB Single Limb- Left 4s PT-OP-G Mobility & Gait Start: 04/06/25 12:14 Freq: Status: Active Protocol: Document 04/06/25 12:14 MAILROOM COORDINATOR (Rec: 04/06/25 18:12 MAILROOM COORDINATOR Laptop) OP Gait Assessment Comments Gait Comments Amb with 4WW, slight flexion at B hips, steady without LOB PT-OP-K Range of Motion Start: 04/06/25 12:14 Freq: Status: Active Protocol: Document 04/06/25 12:14 MAILROOM COORDINATOR (Rec: 04/06/25 18:12 MAILROOM COORDINATOR Laptop) Hip Goniometric Range of Motion Hip ROM Limitations Hip ROM Limitations Soft Tissue Tightness Comments L hip ext: active to midline only R hip ext: Heel to butt: R 18, L 17 Knee Goniometric Range of Motion Knee L Knee ROM WFL No Patient Position Supine Flexion Active ( 107 degrees) Extension Passive ( 6 degrees) R Knee ROM WFL Yes Patient Position Supine Flexion Active ( 120 degrees) Extension Passive ( 2 degrees) PT-OP-M Strength Start: 04/06/25 12:14 Freq: Status: Active Protocol: Document 04/06/25 12:14 MAILROOM COORDINATOR (Rec: 04/06/25 18:12 MAILROOM COORDINATOR Laptop) Hip Strength Hip Manual Muscle Testing L Flexion (L2) 4- Good- Extension (S1) 3+ Fair+ Abduction 3- Fair- R Flexion (L2) 4 Good Extension (S1) 3- Fair- Abduction 3- Fair- Knee Strength Knee Manual Muscle Testing L Flexion (S2) 4+ Good+ Extension (L3) 5 Normal R Flexion (S2) 4+ Good+ Extension (L3) 5 Normal Ankle/Foot Strength Ankle and Foot Manual Muscle Testing L Dorsiflexion (L4) 4+ Good+ R Dorsiflexion (L4) 5 Normal PT-OP-Q Treatments Start: 04/06/25 12:14 Freq: Status: Active Protocol: Document 04/11/25 14:35 MAILROOM COORDINATOR (Rec: 04/11/25 16:19 MAILROOM COORDINATOR Laptop) Cardio Equipment Recumbent Stepper (Sci-Fit) Duration (Minutes) 5 Resistance L3 Seat Position 10 Other BUEs and BLEs for warm up Therapeutic Exercises Standing Exercises HS stretch Side bilateral Equipment Used 4 step with HR Reps/Minutes 1 min Comments Added to HEP handout Hip Ext Side bilateral Equipment Used bar for support Reps/Minutes 10x2 Comments Added to HEP handout Hip Abd Side bilateral Equipment Used bar for support Reps/Minutes 10x2 Comments Added to HEP handout Marching Side bilateral Equipment Used bar for support Reps/Minutes 10x2 Comments Added to HEP handout Gait Training Gait Activity 2 Description cane assessment Device Used hurry cane Level of Assistance SBA Surface level Distance/Duration 100 Treatment Focus safety and balance with cane Comments minimal unsteadiness and B hip instability, not ready to fully switch to SPC for amb 1 Description 4WW assessment Device Used 4WW Level of Assistance spv Surface level Distance/Duration 100 Treatment Focus posture, adjusted walker height 1 notch for improved upright posture PT-OP-T Assessment and Plan Start: 04/06/25 12:14 Freq: Status: Active Protocol: Document 04/11/25 14:35 MAILROOM COORDINATOR (Rec: 04/11/25 16:19 MAILROOM COORDINATOR Laptop) Physical Therapy Assessment Impairments Impairments Activity Tolerance,Balance,Edema,Functional Activities, Functional Mobility,Gait,ROM,Soft Tissue Mobility, Strength Goals 3 Impairment Balance Short Term Goal (STG Pt will improve improved balance with SLS of 30s on ) each LE on even ground without UE support to improve safety and function STG Duration 5 weeks Engineering Technical Analyst Goal (LTG) Pt will demonstrate gait 150' on even and uneven ground without AD without LOB for improved function. LTG Duration 10 weeks 2 Impairment Strength Impairment Decreased B hip strength Short Term Goal (STG Pt will improve B hip strength by 1 MMT points to ) improve function STG Duration 5 weeks Skilled Nursing Goal (LTG) Pt will improve B hip strength by 3 MMT points to improve function LTG Duration 10 weeks 1 Impairment ROM Impairment L knee ROM Engineering Technical Analyst Goal (LTG) Pt will improve L knee ROM to reach 0 degrees of passive ext and 120 degrees of active flexion to improve function. LTG Duration 10 weeks Assessment Summary Assessment Pt tolerated all standing hip exercises and HS stretch well with HEP handout given. Assessed gait device as pt is wanting to transition to cane from 4WW but not ready to switch d/t B hip weakness causing unsteadiness .
--- NOTE | 2025-04-13 17:44 | PT.OTN ---
Current Diagnoses Bilateral primary osteoarthritis of knee (04/13/25) Presence of left artificial knee joint (04/13/25) Physical Therapy Treatment Note PT-OP-A Visit Information Start: 04/06/25 12:14 Freq: Status: Active Protocol: Document 04/13/25 16:19 PAINT DIPPER (Rec: 04/13/25 17:44 PAINT DIPPER Laptop) Out-Patient Physical Therapy Visit Information Visit Information Visit Type Treatment Note Visit Start Time 16:20 Visit Stop Time 17:05 Visit Number 3 Number of PUMPER HAND Visits 0 Evaluation Information Evaluation Date 04/06/25 Precautions Precautions Monitor BP, Fall risk PT-OP-B Current Condition Start: 04/06/25 12:14 Freq: Status: Active Protocol: Document 04/06/25 12:14 PAINT DIPPER (Rec: 04/06/25 18:12 PAINT DIPPER Laptop) Current Condition History of Current Condition Onset Date L TKA 11/15/24 Current Complaints LLE edema, balance, LLE strength History of Current Pt amb into session with 4WW and with spouse. Had a L Condition knee replacement 11/15 and had OP PT here at [facility] but was unable to finish d/t high BP and was D/C mid February 2025. Reports issues with edema in LLE but has improved to almost same size as RLE in the mornings . Pt has been logging BP 2x/daily and with consistent levels. Has 2 steps to get into house via porch with railing on L side, reports no difficulty with them. Has been working on home HEP since D/C from PT. Reports no pain in LLE but has tightness/zinging feeling in R thigh. Has difficulty getting into tall bed and steps on step stool. Lifts LLE with BUEs to get in/out of car and bed. No falls since surgery. Prior Treatments and R TKA ~20 years ago. Tests Treatment Goals Patient/Caregiver Would like to walk without AD or with a cane and would Goals like to drive again. PT-OP-C Subjective Start: 04/06/25 12:14 Freq: Status: Active Protocol: Document 04/13/25 16:19 PAINT DIPPER (Rec: 04/13/25 17:44 PAINT DIPPER Laptop) OP-PT Subjective Patient Comments Patient Comments Pt amb into session with 4WW, reports 5/10 pain to R thigh just above knee cap. Has been working on HEP given at last session and reports they are difficult. PT-OP-D Balance Start: 04/06/25 12:14 Freq: Status: Active Protocol: Document 04/06/25 12:14 PAINT DIPPER (Rec: 04/06/25 18:12 PAINT DIPPER Laptop) Balance Tests Single Limb Standing Single Limb- Right 16s with post LOB Single Limb- Left 4s PT-OP-G Mobility & Gait Start: 04/06/25 12:14 Freq: Status: Active Protocol: Document 04/06/25 12:14 PAINT DIPPER (Rec: 04/06/25 18:12 PAINT DIPPER Laptop) OP Gait Assessment Comments Gait Comments Amb with 4WW, slight flexion at B hips, steady without LOB PT-OP-K Range of Motion Start: 04/06/25 12:14 Freq: Status: Active Protocol: Document 04/06/25 12:14 PAINT DIPPER (Rec: 04/06/25 18:12 PAINT DIPPER Laptop) Hip Goniometric Range of Motion Hip ROM Limitations Hip ROM Limitations Soft Tissue Tightness Comments L hip ext: active to midline only R hip ext: Heel to butt: R 18, L 17 Knee Goniometric Range of Motion Knee L Knee ROM WFL No Patient Position Supine Flexion Active ( 107 degrees) Extension Passive ( 6 degrees) R Knee ROM WFL Yes Patient Position Supine Flexion Active ( 120 degrees) Extension Passive ( 2 degrees) PT-OP-M Strength Start: 04/06/25 12:14 Freq: Status: Active Protocol: Document 04/06/25 12:14 PAINT DIPPER (Rec: 04/06/25 18:12 PAINT DIPPER Laptop) Hip Strength Hip Manual Muscle Testing L Flexion (L2) 4- Good- Extension (S1) 3+ Fair+ Abduction 3- Fair- R Flexion (L2) 4 Good Extension (S1) 3- Fair- Abduction 3- Fair- Knee Strength Knee Manual Muscle Testing L Flexion (S2) 4+ Good+ Extension (L3) 5 Normal R Flexion (S2) 4+ Good+ Extension (L3) 5 Normal Ankle/Foot Strength Ankle and Foot Manual Muscle Testing L Dorsiflexion (L4) 4+ Good+ R Dorsiflexion (L4) 5 Normal PT-OP-Q Treatments Start: 04/06/25 12:14 Freq: Status: Active Protocol: Document 04/13/25 16:19 PAINT DIPPER (Rec: 04/13/25 17:44 PAINT DIPPER Laptop) Cardio Equipment Recumbent Stepper (Sci-Fit) Duration (Minutes) 7 Resistance L4 Seat Position 11 Other BUEs and BLEs for warm up Therapeutic Exercises Supine Exercises SAQ Side bilateral Reps/Minutes x10 with 5s hold Bridges Side bilateral Reps/Minutes x10 Comments after STM to B quads, VC for TA activation and breathing Standing Exercises Lunge Stretch Standing Exercise knee flex stretch Name Side bilateral Equipment Used 6 step with HR Reps/Minutes x5 each with 10s hold HS stretch Side bilateral Equipment Used 6 step with HR Reps/Minutes 1 min x2 Comments HEP review Hip Ext Side bilateral Equipment Used bar for support Reps/Minutes x10 Comments HEP review Hip Abd Side bilateral Equipment Used bar for support Reps/Minutes x10 Comments HEP review Marching Side bilateral Equipment Used bar for support Reps/Minutes x10 Comments HEP review Manual Therapy Treatment Consent Patient gave verbal Yes consent for manual treatment Soft Tissue Mobilization Quads Body Location B ant and lateral quads, ITB Mobilization Type Rolling,Trigger Point Release Intensity/Depth Moderate Body Position Supine Comments pitting edema noted B: R 21 circ mid thigh, L 22.25 with lymphatic movement in addition to STM of quads. Noted large trigger point to R distal quad PT-OP-T Assessment and Plan Start: 04/06/25 12:14 Freq: Status: Active Protocol: Document 04/13/25 16:19 PAINT DIPPER (Rec: 04/13/25 17:44 PAINT DIPPER Laptop) Physical Therapy Assessment Impairments Impairments Activity Tolerance,Balance,Edema,Functional Activities, Functional Mobility,Gait,ROM,Soft Tissue Mobility, Strength Goals 3 Impairment Balance Short Term Goal (STG Pt will improve improved balance with SLS of 30s on ) each LE on even ground without UE support to improve safety and function STG Duration 5 weeks Equine Science Instructor Goal (LTG) Pt will demonstrate gait 150' on even and uneven ground without AD without LOB for improved function. LTG Duration 10 weeks 2 Impairment Strength Impairment Decreased B hip strength Short Term Goal (STG Pt will improve B hip strength by 1 MMT points to ) improve function STG Duration 5 weeks Half-Way Goal (LTG) Pt will improve B hip strength by 3 MMT points to improve function LTG Duration 10 weeks 1 Impairment ROM Impairment L knee ROM Equine Science Instructor Goal (LTG) Pt will improve L knee ROM to reach 0 degrees of passive ext and 120 degrees of active flexion to improve function. LTG Duration 10 weeks Progress Towards Goals Progress Towards Progressing Toward Goals Goals Assessment Summary Assessment Pt demonstrates good knowledge of HEP with assist from spouse on cueing. Pt with complaints of tightness and pain to R knee and session with focus on STM to B quads proximal to distal with reduction of pain from 5/10 to 0/10 at end of session. Physical Therapy Plan Frequency and Duration Frequency of 2x/Week Treatment Duration of 12 treatment (weeks) Plan of Care Start 04/06/25 Date Plan of Care End 06/29/25 Date Therapeutic Interventions Therapeutic Balance Training,Gait Training,Home Exercise Program, Interventions Joint Mobilizations,Lymphedema Management,Manual Therapy,Neuromuscular Re-education,Patient/Caregiver Education,Soft Tissue Mobilization,Therapeutic Activities,Therapeutic Exercises Modalities Cold Pack/Ice Massage,Hot Packs,Ultrasound Next Visit Focus/Plan Next Note Type Treatment Note Next Visit Plan STM to B quads distal-proximal, B hip flexor stretch, B gastroc stretch, standing balance activities, step ups 4 step for quad loading
--- NOTE | 2025-04-17 18:07 | PT.OTN ---
Current Diagnoses Bilateral primary osteoarthritis of knee (04/17/25) Presence of left artificial knee joint (04/17/25) Physical Therapy Treatment Note PT-OP-A Visit Information Start: 04/06/25 12:14 Freq: Status: Active Protocol: Document 04/17/25 16:57 AB (Rec: 04/17/25 18:07 AB Laptop) Out-Patient Physical Therapy Visit Information Visit Information Visit Type Treatment Note Visit Start Time 17:02 Visit Stop Time 17:52 Visit Number 4 ( PN by 05/06/2025) Number of DIE CUT OPERATOR Visits 1 Evaluation Information Evaluation Date 04/06/25 Precautions Precautions Monitor BP, Fall risk PT-OP-B Current Condition Start: 04/06/25 12:14 Freq: Status: Active Protocol: Document 04/06/25 12:14 CORRECTIONAL SERGEANT (Rec: 04/06/25 18:12 CORRECTIONAL SERGEANT Laptop) Current Condition History of Current Condition Onset Date L TKA 11/15/24 Current Complaints LLE edema, balance, LLE strength History of Current Pt amb into session with 4WW and with spouse. Had a L Condition knee replacement 11/15 and had OP PT here at [facility] but was unable to finish d/t high BP and was D/C mid February 2025. Reports issues with edema in LLE but has improved to almost same size as RLE in the mornings . Pt has been logging BP 2x/daily and with consistent levels. Has 2 steps to get into house via porch with railing on L side, reports no difficulty with them. Has been working on home HEP since D/C from PT. Reports no pain in LLE but has tightness/zinging feeling in R thigh. Has difficulty getting into tall bed and steps on step stool. Lifts LLE with BUEs to get in/out of car and bed. No falls since surgery. Prior Treatments and R TKA ~20 years ago. Tests Treatment Goals Patient/Caregiver Would like to walk without AD or with a cane and would Goals like to drive again. PT-OP-C Subjective Start: 04/06/25 12:14 Freq: Status: Active Protocol: Document 04/17/25 16:57 AB (Rec: 04/17/25 18:07 AB Laptop) OP-PT Subjective Patient Comments Patient Comments Patient amb into session with 4 WW, attempts to park walker ~3 feet from mat. BP R UE 133/65 HR 57 Seated Start of session. Patient reports he has been doing exercises. Patient reports LE swelling is the same. Lacking 8 deg ext to 116 deg flexion AROM. Pitting edema L. K knee circumference 45.4 cm joint line 10 cm below knee joint 42 cm, 10 cm above joint line 50.2 cm. PT-OP-D Balance Start: 04/06/25 12:14 Freq: Status: Active Protocol: Document 04/06/25 12:14 CORRECTIONAL SERGEANT (Rec: 04/06/25 18:12 CORRECTIONAL SERGEANT Laptop) Balance Tests Single Limb Standing Single Limb- Right 16s with post LOB Single Limb- Left 4s PT-OP-G Mobility & Gait Start: 04/06/25 12:14 Freq: Status: Active Protocol: Document 04/06/25 12:14 CORRECTIONAL SERGEANT (Rec: 04/06/25 18:12 CORRECTIONAL SERGEANT Laptop) OP Gait Assessment Comments Gait Comments Amb with 4WW, slight flexion at B hips, steady without LOB PT-OP-K Range of Motion Start: 04/06/25 12:14 Freq: Status: Active Protocol: Document 04/06/25 12:14 CORRECTIONAL SERGEANT (Rec: 04/06/25 18:12 CORRECTIONAL SERGEANT Laptop) Hip Goniometric Range of Motion Hip ROM Limitations Hip ROM Limitations Soft Tissue Tightness Comments L hip ext: active to midline only R hip ext: Heel to butt: R 18, L 17 Knee Goniometric Range of Motion Knee L Knee ROM WFL No Patient Position Supine Flexion Active ( 107 degrees) Extension Passive ( 6 degrees) R Knee ROM WFL Yes Patient Position Supine Flexion Active ( 120 degrees) Extension Passive ( 2 degrees) PT-OP-M Strength Start: 04/06/25 12:14 Freq: Status: Active Protocol: Document 04/06/25 12:14 CORRECTIONAL SERGEANT (Rec: 04/06/25 18:12 CORRECTIONAL SERGEANT Laptop) Hip Strength Hip Manual Muscle Testing L Flexion (L2) 4- Good- Extension (S1) 3+ Fair+ Abduction 3- Fair- R Flexion (L2) 4 Good Extension (S1) 3- Fair- Abduction 3- Fair- Knee Strength Knee Manual Muscle Testing L Flexion (S2) 4+ Good+ Extension (L3) 5 Normal R Flexion (S2) 4+ Good+ Extension (L3) 5 Normal Ankle/Foot Strength Ankle and Foot Manual Muscle Testing L Dorsiflexion (L4) 4+ Good+ R Dorsiflexion (L4) 5 Normal PT-OP-Q Treatments Start: 04/06/25 12:14 Freq: Status: Active Protocol: Document 04/17/25 16:57 AB (Rec: 04/17/25 18:07 AB Laptop) Therapeutic Exercises Supine Exercises Heel slides Side left Reps/Minutes X10 Comments verbal cues Sitting Exercises seated hip abd with band Sitting Exercise HEP Name Side bilateral Resistance Level 3 band Reps/Minutes one min X 1 Comments verbal cues Standing Exercises step ups Standing Exercise 4 inch step, step up step back Name Side left Reps/Minutes X 2 X 2 and then 10 Comments verbal and visual cues calf stretch on step Standing Exercise with bilateral rails Name Reps/Minutes 60 sec with knees straight 60 sec knees bent Comments verbal cues Lunge Stretch Standing Exercise knee flex stretch Name Side bilateral Equipment Used 6 step with HR Reps/Minutes x30 sec X 2 Comments combined into calf stretch with back LE knee / X 30 sec knee flex X 30 sec Therapeutic Activity Therapeutic Activity 4 WW use Comments VC to back fully to mat and to lock brakes Manual Therapy Treatment Consent Patient gave verbal Yes consent for manual treatment Soft Tissue Mobilization Quads Body Location L quad and hamstring Mobilization Type Cross-Friction,Rolling Intensity/Depth Moderate Body Position Hooklying Manual Techniques contract relax Type hamstring stretch Reps/Duration 60 sec X2 PT-OP-T Assessment and Plan Start: 04/06/25 12:14 Freq: Status: Active Protocol: Document 04/17/25 16:57 AB (Rec: 04/17/25 18:07 AB Laptop) Physical Therapy Assessment Goals 3 Impairment Balance Short Term Goal (STG Pt will improve improved balance with SLS of 30s on ) each LE on even ground without UE support to improve safety and function STG Duration 5 weeks Custodial Goal (LTG) Pt will demonstrate gait 150' on even and uneven ground without AD without LOB for improved function. LTG Duration 10 weeks 2 Impairment Strength Impairment Decreased B hip strength Short Term Goal (STG Pt will improve B hip strength by 1 MMT points to ) improve function STG Duration 5 weeks Custodial Goal (LTG) Pt will improve B hip strength by 3 MMT points to improve function LTG Duration 10 weeks 1 Impairment ROM Impairment L knee ROM Custodial Goal (LTG) Pt will improve L knee ROM to reach 0 degrees of passive ext and 120 degrees of active flexion to improve function. LTG Duration 10 weeks Assessment Summary Assessment Lacking 7 deg ext to 117 deg flexion. SL stance improved from 2,2,2 sec L LE to 15+ sec without UE use post glut med activation. Physical Therapy Plan Frequency and Duration Frequency of 2x/Week Treatment Duration of 12 treatment (weeks) Plan of Care Start 04/06/25 Date Plan of Care End 06/29/25 Date Next Visit Focus/Plan Next Note Type Treatment Note Next Visit Plan STM to B quads distal-proximal, B hip flexor stretch, B gastroc stretch, standing balance activities, step ups 4 step for quad loading
--- NOTE | 2025-04-20 15:30 | PT.OTN ---
Current Diagnoses Bilateral primary osteoarthritis of knee (04/20/25) Presence of left artificial knee joint (04/20/25) Physical Therapy Treatment Note PT-OP-A Visit Information Start: 04/06/25 12:14 Freq: Status: Active Protocol: Document 04/20/25 08:24 WELDER FITTER APPRENTICE (Rec: 04/20/25 09:06 WELDER FITTER APPRENTICE Laptop) Out-Patient Physical Therapy Visit Information Visit Information Visit Type Treatment Note Visit Start Time 08:20 Visit Stop Time 09:03 Visit Number 5 Number of MATERIAL CHECKER Visits 0 Evaluation Information Evaluation Date 04/06/25 Precautions Precautions Monitor BP, Fall risk PT-OP-B Current Condition Start: 04/06/25 12:14 Freq: Status: Active Protocol: Document 04/06/25 12:14 WELDER FITTER APPRENTICE (Rec: 04/06/25 18:12 WELDER FITTER APPRENTICE Laptop) Current Condition History of Current Condition Onset Date L TKA 11/15/24 Current Complaints LLE edema, balance, LLE strength History of Current Pt amb into session with 4WW and with spouse. Had a L Condition knee replacement 11/15 and had OP PT here at [facility] but was unable to finish d/t high BP and was D/C mid February 2025. Reports issues with edema in LLE but has improved to almost same size as RLE in the mornings . Pt has been logging BP 2x/daily and with consistent levels. Has 2 steps to get into house via porch with railing on L side, reports no difficulty with them. Has been working on home HEP since D/C from PT. Reports no pain in LLE but has tightness/zinging feeling in R thigh. Has difficulty getting into tall bed and steps on step stool. Lifts LLE with BUEs to get in/out of car and bed. No falls since surgery. Prior Treatments and R TKA ~20 years ago. Tests Treatment Goals Patient/Caregiver Would like to walk without AD or with a cane and would Goals like to drive again. PT-OP-C Subjective Start: 04/06/25 12:14 Freq: Status: Active Protocol: Document 04/20/25 08:24 WELDER FITTER APPRENTICE (Rec: 04/20/25 09:06 WELDER FITTER APPRENTICE Laptop) OP-PT Subjective Patient Comments Patient Comments Pt amb into session with B compression stockings on and improved edema B, using 4WW. Pt and spouse report they have been working on HEP and have 1 question about HS stretch. L knee joint line 45.5 cm, 10cm below knee joint line 41 cm, 10 cm above knee joint line 50.7 cm, minimally improved circumference. PT-OP-D Balance Start: 04/06/25 12:14 Freq: Status: Active Protocol: Document 04/06/25 12:14 WELDER FITTER APPRENTICE (Rec: 04/06/25 18:12 WELDER FITTER APPRENTICE Laptop) Balance Tests Single Limb Standing Single Limb- Right 16s with post LOB Single Limb- Left 4s PT-OP-G Mobility & Gait Start: 04/06/25 12:14 Freq: Status: Active Protocol: Document 04/06/25 12:14 WELDER FITTER APPRENTICE (Rec: 04/06/25 18:12 WELDER FITTER APPRENTICE Laptop) OP Gait Assessment Comments Gait Comments Amb with 4WW, slight flexion at B hips, steady without LOB PT-OP-K Range of Motion Start: 04/06/25 12:14 Freq: Status: Active Protocol: Document 04/06/25 12:14 WELDER FITTER APPRENTICE (Rec: 04/06/25 18:12 WELDER FITTER APPRENTICE Laptop) Hip Goniometric Range of Motion Hip ROM Limitations Hip ROM Limitations Soft Tissue Tightness Comments L hip ext: active to midline only R hip ext: Heel to butt: R 18, L 17 Knee Goniometric Range of Motion Knee L Knee ROM WFL No Patient Position Supine Flexion Active ( 107 degrees) Extension Passive ( 6 degrees) R Knee ROM WFL Yes Patient Position Supine Flexion Active ( 120 degrees) Extension Passive ( 2 degrees) PT-OP-M Strength Start: 04/06/25 12:14 Freq: Status: Active Protocol: Document 04/06/25 12:14 WELDER FITTER APPRENTICE (Rec: 04/06/25 18:12 WELDER FITTER APPRENTICE Laptop) Hip Strength Hip Manual Muscle Testing L Flexion (L2) 4- Good- Extension (S1) 3+ Fair+ Abduction 3- Fair- R Flexion (L2) 4 Good Extension (S1) 3- Fair- Abduction 3- Fair- Knee Strength Knee Manual Muscle Testing L Flexion (S2) 4+ Good+ Extension (L3) 5 Normal R Flexion (S2) 4+ Good+ Extension (L3) 5 Normal Ankle/Foot Strength Ankle and Foot Manual Muscle Testing L Dorsiflexion (L4) 4+ Good+ R Dorsiflexion (L4) 5 Normal PT-OP-Q Treatments Start: 04/06/25 12:14 Freq: Status: Active Protocol: Document 04/20/25 08:24 WELDER FITTER APPRENTICE (Rec: 04/20/25 09:06 WELDER FITTER APPRENTICE Laptop) Therapeutic Exercises Supine Exercises Hip Abd Supine Exercise Name Straight leg abd Side bilateral Resistance gravity Reps/Minutes x10 Comments TC to prevent hip roll back Clamshells Side bilateral Reps/Minutes x10 Comments TC at post hip Standing Exercises calf stretch on step Standing Exercise with bilateral rails Name Reps/Minutes 60 sec with knees straight 60 sec knees bent HS stretch Side bilateral Reps/Minutes 1 min x2 Comments HEP review of standing vs sitting as depicted in picture (notes made to HEP Hip Ext Comments verbally reviewed correct form and cues Hip Abd Comments verbally reviewed correct form and cues Marching Comments verbally reviewed correct form and cues Manual Therapy Treatment Consent Patient gave verbal Yes consent for manual treatment Soft Tissue Mobilization Glute Med Body Location L glute med Mobilization Type Myofascial Release,Rolling Intensity/Depth Moderate Body Position Sidelying Comments to relieve pain from decreased tissue mobility PT-OP-T Assessment and Plan Start: 04/06/25 12:14 Freq: Status: Active Protocol: Document 04/20/25 08:24 WELDER FITTER APPRENTICE (Rec: 04/20/25 09:06 WELDER FITTER APPRENTICE Laptop) Physical Therapy Assessment Impairments Impairments Activity Tolerance,Balance,Edema,Functional Activities, Functional Mobility,Gait,ROM,Soft Tissue Mobility, Strength Goals 3 Impairment Balance Short Term Goal (STG Pt will improve improved balance with SLS of 30s on ) each LE on even ground without UE support to improve safety and function STG Duration 5 weeks [facility] Goal (LTG) Pt will demonstrate gait 150' on even and uneven ground without AD without LOB for improved function. LTG Duration 10 weeks 2 Impairment Strength Impairment Decreased B hip strength Short Term Goal (STG Pt will improve B hip strength by 1 MMT points to ) improve function STG Duration 5 weeks Marker Assembler Goal (LTG) Pt will improve B hip strength by 3 MMT points to improve function LTG Duration 10 weeks 1 Impairment ROM Impairment L knee ROM [facility] Goal (LTG) Pt will improve L knee ROM to reach 0 degrees of passive ext and 120 degrees of active flexion to improve function. LTG Duration 10 weeks Progress Towards Goals Progress Towards Progressing Toward Goals Goals Assessment Summary Assessment Pt demonstrates slight improvement in B lower LE edema and pt and spouse educated on checking for bunching of compression socks to prevent blocking of lymph/blood flow. Pt demonstrates improved knowledge of HEP and stretches, is improving with B glute med activation for hip strength and balance during mobility. Physical Therapy Plan Frequency and Duration Frequency of 2x/Week Treatment Duration of 12 treatment (weeks) Plan of Care Start 04/06/25 Date Plan of Care End 06/29/25 Date Therapeutic Interventions Therapeutic Balance Training,Gait Training,Home Exercise Program, Interventions Joint Mobilizations,Lymphedema Management,Manual Therapy,Neuromuscular Re-education,Patient/Caregiver Education,Soft Tissue Mobilization,Therapeutic Activities,Therapeutic Exercises Modalities Cold Pack/Ice Massage,Hot Packs,Ultrasound Next Visit Focus/Plan Next Note Type Treatment Note Next Visit Plan L knee extension stretch with heel prop and overpressure, HS strengthening, B hip flexor stretch off end of bed, standing balance activities after B glute med activation, step ups onto 4 step for quad loading
--- NOTE | 2025-04-24 15:13 | PT.OTN ---
Current Diagnoses Bilateral primary osteoarthritis of knee (04/24/25) Presence of left artificial knee joint (04/24/25) Physical Therapy Treatment Note PT-OP-A Visit Information Start: 04/06/25 12:14 Freq: Status: Active Protocol: Document 04/24/25 13:42 ROBOTIC TOY INVENTOR (Rec: 04/24/25 14:37 ROBOTIC TOY INVENTOR Laptop) Out-Patient Physical Therapy Visit Information Visit Information Visit Type Treatment Note Visit Start Time 13:50 Visit Stop Time 14:32 Visit Number 6 Number of PIPE FITTER SOFT COPPER Visits 0 Evaluation Information Evaluation Date 04/06/25 Precautions Precautions Monitor BP, Fall risk PT-OP-B Current Condition Start: 04/06/25 12:14 Freq: Status: Active Protocol: Document 04/06/25 12:14 ROBOTIC TOY INVENTOR (Rec: 04/06/25 18:12 ROBOTIC TOY INVENTOR Laptop) Current Condition History of Current Condition Onset Date L TKA 11/15/24 Current Complaints LLE edema, balance, LLE strength History of Current Pt amb into session with 4WW and with spouse. Had a L Condition knee replacement 11/15 and had OP PT here at [facility] but was unable to finish d/t high BP and was D/C mid February 2025. Reports issues with edema in LLE but has improved to almost same size as RLE in the mornings . Pt has been logging BP 2x/daily and with consistent levels. Has 2 steps to get into house via porch with railing on L side, reports no difficulty with them. Has been working on home HEP since D/C from PT. Reports no pain in LLE but has tightness/zinging feeling in R thigh. Has difficulty getting into tall bed and steps on step stool. Lifts LLE with BUEs to get in/out of car and bed. No falls since surgery. Prior Treatments and R TKA ~20 years ago. Tests Treatment Goals Patient/Caregiver Would like to walk without AD or with a cane and would Goals like to drive again. PT-OP-C Subjective Start: 04/06/25 12:14 Freq: Status: Active Protocol: Document 04/24/25 13:42 ROBOTIC TOY INVENTOR (Rec: 04/24/25 14:37 ROBOTIC TOY INVENTOR Laptop) OP-PT Subjective Patient Comments Patient Comments Pt amb into session using 4WW, reports B edema is slightly improved since wearing compression stockings. Reports main complaint is pain at B ant thighs R>L, currently at 4/10. Spouse reports pt is on new medication metolazone and BP has been low lately. Currently BP 94/50, HR 55, SpO2 99%. PT-OP-D Balance Start: 04/06/25 12:14 Freq: Status: Active Protocol: Document 04/06/25 12:14 ROBOTIC TOY INVENTOR (Rec: 04/06/25 18:12 ROBOTIC TOY INVENTOR Laptop) Balance Tests Single Limb Standing Single Limb- Right 16s with post LOB Single Limb- Left 4s PT-OP-G Mobility & Gait Start: 04/06/25 12:14 Freq: Status: Active Protocol: Document 04/06/25 12:14 ROBOTIC TOY INVENTOR (Rec: 04/06/25 18:12 ROBOTIC TOY INVENTOR Laptop) OP Gait Assessment Comments Gait Comments Amb with 4WW, slight flexion at B hips, steady without LOB PT-OP-K Range of Motion Start: 04/06/25 12:14 Freq: Status: Active Protocol: Document 04/06/25 12:14 ROBOTIC TOY INVENTOR (Rec: 04/06/25 18:12 ROBOTIC TOY INVENTOR Laptop) Hip Goniometric Range of Motion Hip ROM Limitations Hip ROM Limitations Soft Tissue Tightness Comments L hip ext: active to midline only R hip ext: Heel to butt: R 18, L 17 Knee Goniometric Range of Motion Knee L Knee ROM WFL No Patient Position Supine Flexion Active ( 107 degrees) Extension Passive ( 6 degrees) R Knee ROM WFL Yes Patient Position Supine Flexion Active ( 120 degrees) Extension Passive ( 2 degrees) PT-OP-M Strength Start: 04/06/25 12:14 Freq: Status: Active Protocol: Document 04/06/25 12:14 ROBOTIC TOY INVENTOR (Rec: 04/06/25 18:12 ROBOTIC TOY INVENTOR Laptop) Hip Strength Hip Manual Muscle Testing L Flexion (L2) 4- Good- Extension (S1) 3+ Fair+ Abduction 3- Fair- R Flexion (L2) 4 Good Extension (S1) 3- Fair- Abduction 3- Fair- Knee Strength Knee Manual Muscle Testing L Flexion (S2) 4+ Good+ Extension (L3) 5 Normal R Flexion (S2) 4+ Good+ Extension (L3) 5 Normal Ankle/Foot Strength Ankle and Foot Manual Muscle Testing L Dorsiflexion (L4) 4+ Good+ R Dorsiflexion (L4) 5 Normal PT-OP-Q Treatments Start: 04/06/25 12:14 Freq: Status: Active Protocol: Document 04/24/25 13:42 ROBOTIC TOY INVENTOR (Rec: 04/24/25 14:37 ROBOTIC TOY INVENTOR Laptop) Cardio Equipment Recumbent Stepper (Sci-Fit) Duration (Minutes) 6 Resistance L6 Seat Position 7 Other BLEs only for stretch and warm up, TB around knees to prevent hitting bar Gym Equipment Shuttle Recovery BLE Details L1 TB around knees for glute med activation, active quad stretch Resistance 25#, 50# Shuttle Recovery Stable Platform Reps/Time x10 each weight Manual Therapy Treatment Consent Patient gave verbal Yes consent for manual treatment Soft Tissue Mobilization Quads Body Location R distal quad Mobilization Type Instrument Assisted,Myofascial Release,Trigger Point Release Intensity/Depth Deep Body Position Supine Comments noted very large trigger point to distal lateral R quad PT-OP-T Assessment and Plan Start: 04/06/25 12:14 Freq: Status: Active Protocol: Document 04/24/25 13:42 ROBOTIC TOY INVENTOR (Rec: 04/24/25 14:37 ROBOTIC TOY INVENTOR Laptop) Physical Therapy Assessment Impairments Impairments Activity Tolerance,Balance,Edema,Functional Activities, Functional Mobility,Gait,ROM,Soft Tissue Mobility, Strength Goals 3 Impairment Balance Short Term Goal (STG Pt will improve improved balance with SLS of 30s on ) each LE on even ground without UE support to improve safety and function STG Duration 5 weeks Architect Naval Goal (LTG) Pt will demonstrate gait 150' on even and uneven ground without AD without LOB for improved function. LTG Duration 10 weeks 2 Impairment Strength Impairment Decreased B hip strength Short Term Goal (STG Pt will improve B hip strength by 1 MMT points to ) improve function STG Duration 5 weeks Architect Naval Goal (LTG) Pt will improve B hip strength by 3 MMT points to improve function LTG Duration 10 weeks 1 Impairment ROM Impairment L knee ROM Snf Goal (LTG) Pt will improve L knee ROM to reach 0 degrees of passive ext and 120 degrees of active flexion to improve function. LTG Duration 10 weeks Progress Towards Goals Progress Towards Progressing Toward Goals Goals Assessment Summary Assessment Focus this session on R quad manual and active stretching to improve pain and tightness to R knee during functional mobility, pt tolerated IASTM to R distal quad well with noted very large trigger point to distal lateral quad. Pt continues to demonstrate B R>L glute med weakness and will continue to benefit from skilled PT to progress towards goals. Physical Therapy Plan Frequency and Duration Frequency of 2x/Week Treatment Duration of 12 treatment (weeks) Plan of Care Start 04/06/25 Plan of Care End 06/29/25 Date Therapeutic Interventions Therapeutic Balance Training,Gait Training,Home Exercise Program, Interventions Joint Mobilizations,Lymphedema Management,Manual Therapy,Neuromuscular Re-education,Patient/Caregiver Education,Soft Tissue Mobilization,Therapeutic Activities,Therapeutic Exercises Modalities Cold Pack/Ice Massage,Hot Packs,Ultrasound Next Visit Focus/Plan Next Note Type Treatment Note Next Visit Plan IASTM to R distal quad, heat pack prior to manual, increase resistance of shuttle from 50# to 75 and 100#, hip flexor stretch off end of mat table, step ups onto 4 step, standing balance after glute med activation
--- NOTE | 2025-04-26 21:11 | PT.OTN ---
Current Diagnoses Bilateral primary osteoarthritis of knee (04/26/25) Presence of left artificial knee joint (04/26/25) Physical Therapy Treatment Note PT-OP-A Visit Information Start: 04/06/25 12:14 Freq: Status: Active Protocol: Document 04/26/25 13:55 MACHINE STAMPER (Rec: 04/26/25 14:36 MACHINE STAMPER Laptop) Out-Patient Physical Therapy Visit Information Visit Information Visit Type Treatment Note Visit Start Time 13:48 Visit Stop Time 14:32 Visit Number 7 Number of SAWMILL TALLY CLERK Visits 0 Evaluation Information Evaluation Date 04/06/25 Precautions Precautions Monitor BP, Fall risk PT-OP-B Current Condition Start: 04/06/25 12:14 Freq: Status: Active Protocol: Document 04/06/25 12:14 MACHINE STAMPER (Rec: 04/06/25 18:12 MACHINE STAMPER Laptop) Current Condition History of Current Condition Onset Date L TKA 11/15/24 Current Complaints LLE edema, balance, LLE strength History of Current Pt amb into session with 4WW and with spouse. Had a L Condition knee replacement 11/15 and had OP PT here at [facility] but was unable to finish d/t high BP and was D/C mid February 2025. Reports issues with edema in LLE but has improved to almost same size as RLE in the mornings . Pt has been logging BP 2x/daily and with consistent levels. Has 2 steps to get into house via porch with railing on L side, reports no difficulty with them. Has been working on home HEP since D/C from PT. Reports no pain in LLE but has tightness/zinging feeling in R thigh. Has difficulty getting into tall bed and steps on step stool. Lifts LLE with BUEs to get in/out of car and bed. No falls since surgery. Prior Treatments and R TKA ~20 years ago. Tests Treatment Goals Patient/Caregiver Would like to walk without AD or with a cane and would Goals like to drive again. PT-OP-C Subjective Start: 04/06/25 12:14 Freq: Status: Active Protocol: Document 04/26/25 13:55 MACHINE STAMPER (Rec: 04/26/25 14:36 MACHINE STAMPER Laptop) OP-PT Subjective Patient Comments Patient Comments Pt amb into session with 4WW, reports improved BLE edema. Had massage session this morning to work on B quads and has since felt looser and therefore steadier. Spouse and pt report they will try to schedule massage every Thurs before PT. Reports 2/10 pain in B knees PT-OP-D Balance Start: 04/06/25 12:14 Freq: Status: Active Protocol: Document 04/06/25 12:14 MACHINE STAMPER (Rec: 04/06/25 18:12 MACHINE STAMPER Laptop) Balance Tests Single Limb Standing Single Limb- Right 16s with post LOB Single Limb- Left 4s PT-OP-G Mobility & Gait Start: 04/06/25 12:14 Freq: Status: Active Protocol: Document 04/06/25 12:14 MACHINE STAMPER (Rec: 04/06/25 18:12 MACHINE STAMPER Laptop) OP Gait Assessment Comments Gait Comments Amb with 4WW, slight flexion at B hips, steady without LOB PT-OP-K Range of Motion Start: 04/06/25 12:14 Freq: Status: Active Protocol: Document 04/06/25 12:14 MACHINE STAMPER (Rec: 04/06/25 18:12 MACHINE STAMPER Laptop) Hip Goniometric Range of Motion Hip ROM Limitations Hip ROM Limitations Soft Tissue Tightness Comments L hip ext: active to midline only R hip ext: Heel to butt: R 18, L 17 Knee Goniometric Range of Motion Knee L Knee ROM WFL No Patient Position Supine Flexion Active ( 107 degrees) Extension Passive ( 6 degrees) R Knee ROM WFL Yes Patient Position Supine Flexion Active ( 120 degrees) Extension Passive ( 2 degrees) PT-OP-M Strength Start: 04/06/25 12:14 Freq: Status: Active Protocol: Document 04/06/25 12:14 MACHINE STAMPER (Rec: 04/06/25 18:12 MACHINE STAMPER Laptop) Hip Strength Hip Manual Muscle Testing L Flexion (L2) 4- Good- Extension (S1) 3+ Fair+ Abduction 3- Fair- R Flexion (L2) 4 Good Extension (S1) 3- Fair- Abduction 3- Fair- Knee Strength Knee Manual Muscle Testing L Flexion (S2) 4+ Good+ Extension (L3) 5 Normal R Flexion (S2) 4+ Good+ Extension (L3) 5 Normal Ankle/Foot Strength Ankle and Foot Manual Muscle Testing L Dorsiflexion (L4) 4+ Good+ R Dorsiflexion (L4) 5 Normal PT-OP-Q Treatments Start: 04/06/25 12:14 Freq: Status: Active Protocol: Document 04/26/25 13:55 MACHINE STAMPER (Rec: 04/26/25 14:36 MACHINE STAMPER Laptop) Cardio Equipment Recumbent Stepper (Sci-Fit) Duration (Minutes) 8 Resistance L6 Seat Position 7 Other BUE and BLE for warm up Gym Equipment Shuttle Recovery BLE Details L1 TB around knees for glute med activation Resistance 75# 100# Shuttle Recovery Stable Platform Reps/Time x20 each weight Therapeutic Exercises Sitting Exercises seated hip abd with band Side bilateral Resistance Level 1 band Reps/Minutes x20 Comments prior to standing balance exercise Standing Exercises step ups Standing Exercise 4 inch step, step up step back Name Side bilateral Equipment Used HRs Reps/Minutes 10x2 each LE Comments TC for full knee ext on L Gait Training Gait Activity 1 Description 4WW safety Device Used 4WW Level of Assistance spv with VC Treatment Focus safety Comments VC to lock brakes before transfers to/from standing. VC to keep 4WW beside him before transfers vs pushing out of the way and walking without support to chair. 1 LOB with min A to prevent fall while reaching laterally to reach 4WW Neuro Re-Education Treatment Balance Activities Wobble Board Equipment wobble board Reps/Duration x20 each toe and heel edge Comments toe-heel edge for improved WS for balance strategies, BUE support, unable to obtain full WS to edges PT-OP-T Assessment and Plan Start: 04/06/25 12:14 Freq: Status: Active Protocol: Document 04/26/25 13:55 MACHINE STAMPER (Rec: 04/26/25 14:36 MACHINE STAMPER Laptop) Physical Therapy Assessment Impairments Impairments Activity Tolerance,Balance,Edema,Functional Activities, Functional Mobility,Gait,ROM,Soft Tissue Mobility, Strength Goals 3 Impairment Balance Short Term Goal (STG Pt will improve improved balance with SLS of 30s on ) each LE on even ground without UE support to improve safety and function STG Duration 5 weeks Histology Aide Goal (LTG) Pt will demonstrate gait 150' on even and uneven ground without AD without LOB for improved function. LTG Duration 10 weeks 2 Impairment Strength Impairment Decreased B hip strength Short Term Goal (STG Pt will improve B hip strength by 1 MMT points to ) improve function STG Duration 5 weeks Histology Aide Goal (LTG) Pt will improve B hip strength by 3 MMT points to improve function LTG Duration 10 weeks 1 Impairment ROM Impairment L knee ROM Histology Aide Goal (LTG) Pt will improve L knee ROM to reach 0 degrees of passive ext and 120 degrees of active flexion to improve function. LTG Duration 10 weeks Progress Towards Goals Progress Towards Progressing Toward Goals Goals Progress Comments improved quad mobility, edema, and quad ROM/strength/ control Assessment Summary Assessment Pt with improved edema and quad pain/mobility this session after massage appointment to work on quads prior to appointment, able to focus session on quad control/neuro control with L knee ext able to obtain full ext with light TC and R quad cued to control into ext vs lock into hyper ext. Continued to cue pt for safety with 4WW. Pt is progressing towards goals but continues to need skilled PT to meet goals. Physical Therapy Plan Frequency and Duration Frequency of 2x/Week Treatment Duration of 12 treatment (weeks) Plan of Care Start 04/06/25 Date Plan of Care End 06/29/25 Date Therapeutic Interventions Therapeutic Balance Training,Gait Training,Home Exercise Program, Interventions Joint Mobilizations,Lymphedema Management,Manual Therapy,Neuromuscular Re-education,Patient/Caregiver Education,Soft Tissue Mobilization,Therapeutic Activities,Therapeutic Exercises Modalities Cold Pack/Ice Massage,Hot Packs,Ultrasound Next Visit Focus/Plan Next Note Type Treatment Note Next Visit Plan squats, standing balance after glute med activation such as SLS and stepping strategies, progress HEP with TB as needed, quad training with terminal knee ext in standing against TB to neutral vs hyper ext
--- NOTE | 2025-05-01 16:19 | PT.OTN ---
Current Diagnoses Bilateral primary osteoarthritis of knee (05/01/25) Presence of left artificial knee joint (05/01/25) Physical Therapy Treatment Note PT-OP-A Visit Information Start: 04/06/25 12:14 Freq: Status: Active Protocol: Document 05/01/25 13:48 SPONSORSHIP MANAGER (Rec: 05/01/25 14:36 SPONSORSHIP MANAGER Laptop) Out-Patient Physical Therapy Visit Information Visit Information Visit Type Treatment Note Visit Start Time 13:48 Visit Stop Time 14:33 Visit Number 8 Number of CD STORAGE AND MATERIALS MAKE UP HELPER Visits 0 Evaluation Information Evaluation Date 04/06/25 Precautions Precautions Monitor BP, Fall risk PT-OP-B Current Condition Start: 04/06/25 12:14 Freq: Status: Active Protocol: Document 04/06/25 12:14 SPONSORSHIP MANAGER (Rec: 04/06/25 18:12 SPONSORSHIP MANAGER Laptop) Current Condition History of Current Condition Onset Date L TKA 11/15/24 Current Complaints LLE edema, balance, LLE strength History of Current Pt amb into session with 4WW and with spouse. Had a L Condition knee replacement 11/15 and had OP PT here at [facility] but was unable to finish d/t high BP and was D/C mid February 2025. Reports issues with edema in LLE but has improved to almost same size as RLE in the mornings . Pt has been logging BP 2x/daily and with consistent levels. Has 2 steps to get into house via porch with railing on L side, reports no difficulty with them. Has been working on home HEP since D/C from PT. Reports no pain in LLE but has tightness/zinging feeling in R thigh. Has difficulty getting into tall bed and steps on step stool. Lifts LLE with BUEs to get in/out of car and bed. No falls since surgery. Prior Treatments and R TKA ~20 years ago. Tests Treatment Goals Patient/Caregiver Would like to walk without AD or with a cane and would Goals like to drive again. PT-OP-C Subjective Start: 04/06/25 12:14 Freq: Status: Active Protocol: Document 05/01/25 13:48 SPONSORSHIP MANAGER (Rec: 05/01/25 14:36 SPONSORSHIP MANAGER Laptop) OP-PT Subjective Patient Comments Patient Comments Pt ambs into session with 4WW, demonstrating significantly improved BLE edema without wearing compression stockings. Reports BP has been higher lately. Pt also reports no pain today. PT-OP-D Balance Start: 04/06/25 12:14 Freq: Status: Active Protocol: Document 04/06/25 12:14 SPONSORSHIP MANAGER (Rec: 04/06/25 18:12 SPONSORSHIP MANAGER Laptop) Balance Tests Single Limb Standing Single Limb- Right 16s with post LOB Single Limb- Left 4s PT-OP-G Mobility & Gait Start: 04/06/25 12:14 Freq: Status: Active Protocol: Document 04/06/25 12:14 SPONSORSHIP MANAGER (Rec: 04/06/25 18:12 SPONSORSHIP MANAGER Laptop) OP Gait Assessment Comments Gait Comments Amb with 4WW, slight flexion at B hips, steady without LOB PT-OP-K Range of Motion Start: 04/06/25 12:14 Freq: Status: Active Protocol: Document 04/06/25 12:14 SPONSORSHIP MANAGER (Rec: 04/06/25 18:12 SPONSORSHIP MANAGER Laptop) Hip Goniometric Range of Motion Hip ROM Limitations Hip ROM Limitations Soft Tissue Tightness Comments L hip ext: active to midline only R hip ext: Heel to butt: R 18, L 17 Knee Goniometric Range of Motion Knee L Knee ROM WFL No Patient Position Supine Flexion Active ( 107 degrees) Extension Passive ( 6 degrees) R Knee ROM WFL Yes Patient Position Supine Flexion Active ( 120 degrees) Extension Passive ( 2 degrees) PT-OP-M Strength Start: 04/06/25 12:14 Freq: Status: Active Protocol: Document 04/06/25 12:14 SPONSORSHIP MANAGER (Rec: 04/06/25 18:12 SPONSORSHIP MANAGER Laptop) Hip Strength Hip Manual Muscle Testing L Flexion (L2) 4- Good- Extension (S1) 3+ Fair+ Abduction 3- Fair- R Flexion (L2) 4 Good Extension (S1) 3- Fair- Abduction 3- Fair- Knee Strength Knee Manual Muscle Testing L Flexion (S2) 4+ Good+ Extension (L3) 5 Normal R Flexion (S2) 4+ Good+ Extension (L3) 5 Normal Ankle/Foot Strength Ankle and Foot Manual Muscle Testing L Dorsiflexion (L4) 4+ Good+ R Dorsiflexion (L4) 5 Normal PT-OP-Q Treatments Start: 04/06/25 12:14 Freq: Status: Active Protocol: Document 05/01/25 13:48 SPONSORSHIP MANAGER (Rec: 05/01/25 14:36 SPONSORSHIP MANAGER Laptop) Cardio Equipment Recumbent Stepper (Sci-Fit) Duration (Minutes) 6 Resistance L5 Seat Position 7 Other BUE and BLE for warm up Therapeutic Exercises Sidelying Exercises Hip Abd Sidelying Exercise SLR with support at hip to prevent roll back Name Side bilateral Resistance gravity Reps/Minutes x10 each side ITB Stretch Sidelying Exercise ITB/hip flexor off edge of table Name Side right Reps/Minutes 1 min x3 Sitting Exercises seated hip abd with band Sitting Exercise 1. x15 reps 2. 30s hold Name Side bilateral Resistance L3 band Reps/Minutes x15 Comments prior to standing balance exercise Standing Exercises Modified SLS Standing Exercise with exercises ball against wall for balance Name Side bilateral Reps/Minutes 30s x2 each side Comments light UE support on 4WW, for glute med strength and endurance PT-OP-T Assessment and Plan Start: 04/06/25 12:14 Freq: Status: Active Protocol: Document 05/01/25 13:48 SPONSORSHIP MANAGER (Rec: 05/01/25 14:36 SPONSORSHIP MANAGER Laptop) Physical Therapy Assessment Impairments Impairments Activity Tolerance,Balance,Edema,Functional Activities, Functional Mobility,Gait,ROM,Soft Tissue Mobility, Strength Other Concerns Age Related Concerns PMH: watchman procedure, hx stroke/TIA, arthritis, back pain, hearing problems, vision problems Goals 3 Impairment Balance Short Term Goal (STG Pt will improve improved balance with SLS of 30s on ) each LE on even ground without UE support to improve safety and function STG Duration 5 weeks Software Validation Engineer Goal (LTG) Pt will demonstrate gait 150' on even and uneven ground without AD without LOB for improved function. LTG Duration 10 weeks 2 Impairment Strength Impairment Decreased B hip strength Short Term Goal (STG Pt will improve B hip strength by 1 MMT points to ) improve function STG Duration 5 weeks Software Validation Engineer Goal (LTG) Pt will improve B hip strength by 3 MMT points to improve function LTG Duration 10 weeks 1 Impairment ROM Impairment L knee ROM [facility] Goal (LTG) Pt will improve L knee ROM to reach 0 degrees of passive ext and 120 degrees of active flexion to improve function. LTG Duration 10 weeks Progress Towards Goals Progress Towards Progressing Toward Goals Goals Progress Comments improved quad mobility, edema, and quad ROM/strength/ control Assessment Summary Assessment Pt with improved edema and quad pain/mobility this session after massage appointment to work on quads prior to appointment, able to focus session on quad control/neuro control with L knee ext able to obtain full ext with light TC and R quad cued to control into ext vs lock into hyper ext. Continued to cue pt for safety with 4WW. Pt is progressing towards goals but continues to need skilled PT to meet goals. Physical Therapy Plan Frequency and Duration Frequency of 2x/Week Treatment Duration of 12 treatment (weeks) Plan of Care Start 04/06/25 Date Plan of Care End 06/29/25 Date Therapeutic Interventions Therapeutic Balance Training,Gait Training,Home Exercise Program, Interventions Joint Mobilizations,Lymphedema Management,Manual Therapy,Neuromuscular Re-education,Patient/Caregiver Education,Soft Tissue Mobilization,Therapeutic Activities,Therapeutic Exercises Modalities Cold Pack/Ice Massage,Hot Packs,Ultrasound Next Visit Focus/Plan Next Note Type Treatment Note Next Visit Plan glute med strengthening, stepping strategies for balance, quad training with terminal knee ext in standing against TB to neutral vs hyper ext
--- NOTE | 2025-05-03 14:35 | PT.OTN ---
Current Diagnoses Bilateral primary osteoarthritis of knee (05/03/25) Presence of left artificial knee joint (05/03/25) Physical Therapy Treatment Note PT-OP-A Visit Information Start: 04/06/25 12:14 Freq: Status: Active Protocol: Document 05/03/25 13:51 SP (Rec: 05/03/25 14:36 SP [id number]) Out-Patient Physical Therapy Visit Information Visit Information Visit Type Treatment Note Visit Start Time 13:51 Visit Stop Time 14:35 Visit Number 9 (07/18 visits with IV, PN by 05/07) Number of ACQUISITION COST ESTIMATOR Visits 1 Evaluation Information Evaluation Date 04/06/25 Precautions Precautions Monitor BP, Fall risk PT-OP-B Current Condition Start: 04/06/25 12:14 Freq: Status: Active Protocol: Document 04/06/25 12:14 MEDIA COORDINATOR (Rec: 04/06/25 18:12 MEDIA COORDINATOR Laptop) Current Condition History of Current Condition Onset Date L TKA 11/15/24 Current Complaints LLE edema, balance, LLE strength History of Current Pt amb into session with 4WW and with spouse. Had a L Condition knee replacement 11/15 and had OP PT here at [facility] but was unable to finish d/t high BP and was D/C mid February 2025. Reports issues with edema in LLE but has improved to almost same size as RLE in the mornings . Pt has been logging BP 2x/daily and with consistent levels. Has 2 steps to get into house via porch with railing on L side, reports no difficulty with them. Has been working on home HEP since D/C from PT. Reports no pain in LLE but has tightness/zinging feeling in R thigh. Has difficulty getting into tall bed and steps on step stool. Lifts LLE with BUEs to get in/out of car and bed. No falls since surgery. Prior Treatments and R TKA ~20 years ago. Tests Treatment Goals Patient/Caregiver Would like to walk without AD or with a cane and would Goals like to drive again. PT-OP-C Subjective Start: 04/06/25 12:14 Freq: Status: Active Protocol: Document 05/03/25 13:51 SP (Rec: 05/03/25 14:36 SP [id number]) OP-PT Subjective Patient Comments Patient Comments Pt reports BP lately 120/ low 50s. He reports his hips are sore and feeling weak. Pt asked if can recheck his L knee AROM if has improved since eval. PT-OP-D Balance Start: 04/06/25 12:14 Freq: Status: Active Protocol: Document 04/06/25 12:14 MEDIA COORDINATOR (Rec: 04/06/25 18:12 MEDIA COORDINATOR Laptop) Balance Tests Single Limb Standing Single Limb- Right 16s with post LOB Single Limb- Left 4s PT-OP-G Mobility & Gait Start: 04/06/25 12:14 Freq: Status: Active Protocol: Document 04/06/25 12:14 MEDIA COORDINATOR (Rec: 04/06/25 18:12 MEDIA COORDINATOR Laptop) OP Gait Assessment Comments Gait Comments Amb with 4WW, slight flexion at B hips, steady without LOB PT-OP-K Range of Motion Start: 04/06/25 12:14 Freq: Status: Active Protocol: Document 04/06/25 12:14 MEDIA COORDINATOR (Rec: 04/06/25 18:12 MEDIA COORDINATOR Laptop) Hip Goniometric Range of Motion Hip ROM Limitations Hip ROM Limitations Soft Tissue Tightness Comments L hip ext: active to midline only R hip ext: Heel to butt: R 18, L 17 Knee Goniometric Range of Motion Knee L Knee ROM WFL No Patient Position Supine Flexion Active ( 107 degrees) Extension Passive ( 6 degrees) R Knee ROM WFL Yes Patient Position Supine Flexion Active ( 120 degrees) Extension Passive ( 2 degrees) PT-OP-M Strength Start: 04/06/25 12:14 Freq: Status: Active Protocol: Document 04/06/25 12:14 MEDIA COORDINATOR (Rec: 04/06/25 18:12 MEDIA COORDINATOR Laptop) Hip Strength Hip Manual Muscle Testing L Flexion (L2) 4- Good- Extension (S1) 3+ Fair+ Abduction 3- Fair- R Flexion (L2) 4 Good Extension (S1) 3- Fair- Abduction 3- Fair- Knee Strength Knee Manual Muscle Testing L Flexion (S2) 4+ Good+ Extension (L3) 5 Normal R Flexion (S2) 4+ Good+ Extension (L3) 5 Normal Ankle/Foot Strength Ankle and Foot Manual Muscle Testing L Dorsiflexion (L4) 4+ Good+ R Dorsiflexion (L4) 5 Normal PT-OP-Q Treatments Start: 04/06/25 12:14 Freq: Status: Active Protocol: Document 05/03/25 13:51 SP (Rec: 05/03/25 14:36 SP [id number]) Cardio Equipment Recumbent Stepper (Sci-Fit) Duration (Minutes) 6 Resistance L4 Seat Position 12>10 (LUE BP 120/61, HR 54) Other BUE and BLE for warm up, 50 RPMs Gym Equipment Shuttle Recovery BLE Details L1>2 TB around knees for glute med activation Resistance 100# Shuttle Recovery Stable Platform Reps/Time x20 reps (AROM then added TB #2 today) Therapeutic Exercises Supine Exercises L knee AROM remeasure Supine Exercise Name remeasure per pt request Side left Resistance AROM Comments 127deg (improvement from 107 at eval) Hip Abd Supine Exercise Name Straight leg abd- reviewed Side bilateral Resistance gravity eliminated Reps/Minutes x10 Comments TC to prevent hip roll back Sidelying Exercises clamshell Sidelying Exercise added to HEP with HO Name Resistance Tb #1 around thighs Reps/Minutes 10 reps each side Comments good form slow eccentric return Hip Abd Sidelying Exercise SLR with support at posterior hip to prevent roll back Name Side bilateral Resistance against gravity Reps/Minutes x10 each side Comments tactile cues for maintain stacked alignment- challenge maintain Standing Exercises STS Standing Exercise added to HEP with HO Name Equipment Used arms across chest Reps/Minutes 10 reps 18 c hair Comments cued scoot fwd, feet back, arms across chest, hip hinge , slow descent PT-OP-T Assessment and Plan Start: 04/06/25 12:14 Freq: Status: Active Protocol: Document 05/03/25 13:51 SP (Rec: 05/03/25 14:36 SP [id number]) Physical Therapy Assessment Goals 3 Impairment Balance Short Term Goal (STG Pt will improve improved balance with SLS of 30s on ) each LE on even ground without UE support to improve safety and function STG Duration 5 weeks Commercial Collections Driver Goal (LTG) Pt will demonstrate gait 150' on even and uneven ground without AD without LOB for improved function. LTG Duration 10 weeks 2 Impairment Strength Impairment Decreased B hip strength Short Term Goal (STG Pt will improve B hip strength by 1 MMT points to ) improve function STG Duration 5 weeks Prison Goal (LTG) Pt will improve B hip strength by 3 MMT points to improve function LTG Duration 10 weeks 1 Impairment ROM Impairment L knee ROM Commercial Collections Driver Goal (LTG) Pt will improve L knee ROM to reach 0 degrees of passive ext and 120 degrees of active flexion to improve function. 05/03/25: good progression: L knee AROM supine 127 deg. Did not measure extension. LTG Duration 10 weeks Assessment Summary Assessment Pt is making gains in strength and AROM L knee 127deg AROM. Time spent on HOs and performance of HEP can continue home. Challenged with SL hip abduction, modified to clamshells felt more muscle engagement against resistance spouse can don for him. Incorporated with instruction of STS without UE support, cues for scoot to front chair, feet back underneath him and wt shift forward, be sure hip hinge and slow descend fully to chair no flop and please was able to perform without back of legs supported of table/chair. Education on importance of carryover proper form with stated can give carryover cues body positioning from different surfaces same at home. Will continue progress strength and balance. Physical Therapy Plan Frequency and Duration Frequency of 2x/Week Treatment Duration of 12 treatment (weeks) Plan of Care Start 04/06/25 Date Plan of Care End 06/29/25 Date Therapeutic Interventions Therapeutic Balance Training,Gait Training,Home Exercise Program, Interventions Joint Mobilizations,Lymphedema Management,Manual Therapy,Neuromuscular Re-education,Patient/Caregiver Education,Soft Tissue Mobilization,Therapeutic Activities,Therapeutic Exercises Modalities Cold Pack/Ice Massage,Hot Packs,Ultrasound Next Visit Focus/Plan Next Note Type Progress Note Next Visit Plan 30 day PN by 05/07/25. Recheck added SL clamshell, STS and progress: glute med strengthening, stepping strategies for balance, quad training with terminal knee ext in standing against TB to neutral vs hyper ext
--- NOTE | 2025-05-08 17:00 | PT.OPPN ---
Current Diagnoses Bilateral primary osteoarthritis of knee (05/10/25) Presence of left artificial knee joint (05/10/25) Physical Therapy Progress Note PT-OP-A Visit Information Start: 04/06/25 12:14 Freq: Status: Active Protocol: Document 05/15/25 10:41 PERSONNEL ADMINISTRATOR (Rec: 05/13/25 12:20 PERSONNEL ADMINISTRATOR Laptop) Out-Patient Physical Therapy Visit Information Visit Information Visit Type Progress Note PT-OP-B Current Condition Start: 04/06/25 12:14 Freq: Status: Active Protocol: Document 04/06/25 12:14 PERSONNEL ADMINISTRATOR (Rec: 04/06/25 18:12 PERSONNEL ADMINISTRATOR Laptop) Current Condition History of Current Condition Onset Date L TKA 11/15/24 Current Complaints LLE edema, balance, LLE strength History of Current Pt amb into session with 4WW and with spouse. Had a L Condition knee replacement 11/15 and had OP PT here at [facility] but was unable to finish d/t high BP and was D/C mid February 2025. Reports issues with edema in LLE but has improved to almost same size as RLE in the mornings . Pt has been logging BP 2x/daily and with consistent levels. Has 2 steps to get into house via porch with railing on L side, reports no difficulty with them. Has been working on home HEP since D/C from PT. Reports no pain in LLE but has tightness/zinging feeling in R thigh. Has difficulty getting into tall bed and steps on step stool. Lifts LLE with BUEs to get in/out of car and bed. No falls since surgery. Prior Treatments and R TKA ~20 years ago. Tests Treatment Goals Patient/Caregiver Would like to walk without AD or with a cane and would Goals like to drive again. PT-OP-C Subjective Start: 04/06/25 12:14 Freq: Status: Active Protocol: Document 05/15/25 10:41 AB (Rec: 05/08/25 14:36 AB Laptop) OP-PT Subjective Patient Comments Patient Comments Patient reports he has had difficulty walking with the 4 wheeled walker, reports staggering and putting too much weight on walker. Patient reports getting lightening bolt of pain R gluteal. Swelling bilateral LE's remains visibly WNL. BP L UE seated start of session 103/50 HR 43 BPM Standing 95/51 hr 51 PT-OP-D Balance Start: 04/06/25 12:14 Freq: Status: Active Protocol: Document 05/15/25 10:41 AB (Rec: 05/08/25 14:36 AB Laptop) Balance Tests Single Limb Standing Single Limb- Right 14 Single Limb- Left 10 PT-OP-G Mobility & Gait Start: 04/06/25 12:14 Freq: Status: Active Protocol: Document 04/06/25 12:14 PERSONNEL ADMINISTRATOR (Rec: 04/06/25 18:12 PERSONNEL ADMINISTRATOR Laptop) OP Gait Assessment Comments Gait Comments Amb with 4WW, slight flexion at B hips, steady without LOB PT-OP-K Range of Motion Start: 04/06/25 12:14 Freq: Status: Active Protocol: Document 05/15/25 10:41 AB (Rec: 05/08/25 14:36 AB Laptop) Knee Goniometric Range of Motion Knee Measured in Degrees L Flexion Active ( 123 degrees) Extension Active ( 6 degrees) Comments ext lacking 6 deg from neutral PT-OP-M Strength Start: 04/06/25 12:14 Freq: Status: Active Protocol: Document 05/08/25 13:37 AB (Rec: 05/08/25 14:36 AB Laptop) Hip Strength Hip Manual Muscle Testing L Flexion (L2) 4- Good- Extension (S1) 3+ Fair+ Abduction 3+ Fair+ R Flexion (L2) 4- Good- Extension (S1) 3+ Fair+ Abduction 4+ Good+ Comments hip abd with hip flexor compensation Knee Strength Knee Manual Muscle Testing L Flexion (S2) 5 Normal Extension (L3) 5 Normal Comments within limited ROM PT-OP-T Assessment and Plan Start: 04/06/25 12:14 Freq: Status: Active Protocol: Document 05/15/25 10:41 PERSONNEL ADMINISTRATOR (Rec: 05/13/25 12:20 PERSONNEL ADMINISTRATOR Laptop) Physical Therapy Assessment Goals 3 Impairment Balance Short Term Goal (STG Pt will improve improved balance with SLS of 30s on ) each LE on even ground without UE support to improve safety and function 05/08/2025 SLS 10 sec L 14 sec R without UE use STG Duration 5 weeks Assisted Goal (LTG) Pt will demonstrate gait 150' on even and uneven ground without AD without LOB for improved function. LTG Duration 10 weeks 2 Impairment Strength Impairment Decreased B hip strength Short Term Goal (STG Pt will improve B hip strength by 1 MMT points to ) improve function STG Duration 5 weeks Income Tax Adjuster Goal (LTG) Pt will improve B hip strength by 3 MMT points to improve function LTG Duration 10 weeks 1 Impairment ROM Impairment L knee ROM Assisted Goal (LTG) Pt will improve L knee ROM to reach 0 degrees of passive ext and 120 degrees of active flexion to improve function. 05/03/25: good progression: L knee AROM supine 127 deg. Did not measure extension. 05/08/2025 AROM lacking 6 deg ext to 123 deg flexion start of session LTG Duration 10 weeks Progress Towards Goals Progress Towards Progressing Toward Goals Goals Assessment Summary Assessment Pt is demonstrating progress towards goals with improved SLS time to 10s and 14s but not yet reaching goal of 30s each leg and improved knee ROM meeting goal for flex of 120 degrees but still lacking goal for 0 degrees of ext. Pt demonstrates progress in strength of B glute med and L knee flex but continues to demonstrate weakness. Continue skilled PT intervention to reach goals. Physical Therapy Plan Frequency and Duration Frequency of 2x/Week Treatment Duration of 12 treatment (weeks) Plan of Care Start 04/06/25 Date Plan of Care End 06/29/25 Date Therapeutic Interventions Therapeutic Balance Training,Gait Training,Home Exercise Program, Interventions Joint Mobilizations,Lymphedema Management,Manual Therapy,Neuromuscular Re-education,Patient/Caregiver Education,Soft Tissue Mobilization,Therapeutic Activities,Therapeutic Exercises Modalities Cold Pack/Ice Massage,Hot Packs,Ultrasound
--- NOTE | 2025-05-08 18:10 | PT.OTN ---
Current Diagnoses Bilateral primary osteoarthritis of knee (05/08/25) Presence of left artificial knee joint (05/08/25) Physical Therapy Treatment Note PT-OP-A Visit Information Start: 04/06/25 12:14 Freq: Status: Active Protocol: Document 05/08/25 13:37 AB (Rec: 05/08/25 14:36 AB Laptop) Out-Patient Physical Therapy Visit Information Visit Information Visit Type Treatment Note Visit Start Time 13:46 Visit Stop Time 14:32 Visit Number 9 (07/18 visits with IV, PN by 05/07) Number of SOCK DRIER Visits 2 Evaluation Information Evaluation Date 04/06/25 Precautions Precautions Monitor BP, Fall risk PT-OP-B Current Condition Start: 04/06/25 12:14 Freq: Status: Active Protocol: Document 04/06/25 12:14 SCHOOL OF NURSING DIRECTOR (Rec: 04/06/25 18:12 SCHOOL OF NURSING DIRECTOR Laptop) Current Condition History of Current Condition Onset Date L TKA 11/15/24 Current Complaints LLE edema, balance, LLE strength History of Current Pt amb into session with 4WW and with spouse. Had a L Condition knee replacement 11/15 and had OP PT here at [facility] but was unable to finish d/t high BP and was D/C mid February 2025. Reports issues with edema in LLE but has improved to almost same size as RLE in the mornings . Pt has been logging BP 2x/daily and with consistent levels. Has 2 steps to get into house via porch with railing on L side, reports no difficulty with them. Has been working on home HEP since D/C from PT. Reports no pain in LLE but has tightness/zinging feeling in R thigh. Has difficulty getting into tall bed and steps on step stool. Lifts LLE with BUEs to get in/out of car and bed. No falls since surgery. Prior Treatments and R TKA ~20 years ago. Tests Treatment Goals Patient/Caregiver Would like to walk without AD or with a cane and would Goals like to drive again. PT-OP-C Subjective Start: 04/06/25 12:14 Freq: Status: Active Protocol: Document 05/08/25 13:37 AB (Rec: 05/08/25 14:36 AB Laptop) OP-PT Subjective Patient Comments Patient Comments Patient reports he has had difficulty walking with the 4 wheeled walker, reports staggering and putting too much weight on walker. Patient reports getting lightening bolt of pain R gluteal. Swelling bilateral LE's remains visibly WNL. BP L UE seated start of session 103/50 HR 43 BPM Standing 95/51 hr 51 PT-OP-D Balance Start: 04/06/25 12:14 Freq: Status: Active Protocol: Document 05/08/25 13:37 AB (Rec: 05/08/25 14:36 AB Laptop) Balance Tests Single Limb Standing Single Limb- Right 14 Single Limb- Left 10 PT-OP-G Mobility & Gait Start: 04/06/25 12:14 Freq: Status: Active Protocol: Document 04/06/25 12:14 SCHOOL OF NURSING DIRECTOR (Rec: 04/06/25 18:12 SCHO[employer] OF NURSING DIRECTOR Laptop) OP Gait Assessment Comments Gait Comments Amb with 4WW, slight flexion at B hips, steady without LOB PT-OP-K Range of Motion Start: 04/06/25 12:14 Freq: Status: Active Protocol: Document 05/08/25 13:37 AB (Rec: 05/08/25 14:36 AB Laptop) Knee Goniometric Range of Motion Knee L Flexion Active ( 123 degrees) Extension Active ( 6 degrees) Comments ext lacking 6 deg from neutral PT-OP-M Strength Start: 04/06/25 12:14 Freq: Status: Active Protocol: Document 05/08/25 13:37 AB (Rec: 05/08/25 14:36 AB Laptop) Hip Strength Hip Manual Muscle Testing L Flexion (L2) 4- Good- Extension (S1) 3+ Fair+ Abduction 3+ Fair+ R Flexion (L2) 4- Good- Extension (S1) 3+ Fair+ Abduction 4+ Good+ Comments hip abd with hip flexor compensation Knee Strength Knee Manual Muscle Testing L Flexion (S2) 5 Normal Extension (L3) 5 Normal Comments within limited ROM PT-OP-Q Treatments Start: 04/06/25 12:14 Freq: Status: Active Protocol: Document 05/08/25 13:37 AB (Rec: 05/08/25 14:36 AB Laptop) Gym Equipment Shuttle Recovery BLE Details L1>2 TB around knees for glute med activation Resistance 100# Shuttle Recovery Stable Platform Reps/Time X 15 X 2 Manual Therapy Treatment Consent Patient gave verbal Yes consent for manual treatment Soft Tissue Mobilization L hamstring Mobilization Type Cross-Friction,Rolling Intensity/Depth Moderate Body Position Hooklying Manual Techniques contract relax Type hamstring stretch Reps/Duration 40-60 sec X2 PT-OP-T Assessment and Plan Start: 04/06/25 12:14 Freq: Status: Active Protocol: Document 05/08/25 13:37 AB (Rec: 05/08/25 14:36 AB Laptop) Physical Therapy Assessment Goals 3 Impairment Balance Short Term Goal (STG Pt will improve improved balance with SLS of 30s on ) each LE on even ground without UE support to improve safety and function 05/08/2025 SLS 10 sec L 14 sec R without UE use STG Duration 5 weeks Lance Crewmember/Mlrs Sergeant Goal (LTG) Pt will demonstrate gait 150' on even and uneven ground without AD without LOB for improved function. LTG Duration 10 weeks 2 Impairment Strength Impairment Decreased B hip strength Short Term Goal (STG Pt will improve B hip strength by 1 MMT points to ) improve function STG Duration 5 weeks Lance Crewmember/Mlrs Sergeant Goal (LTG) Pt will improve B hip strength by 3 MMT points to improve function LTG Duration 10 weeks 1 Impairment ROM Impairment L knee ROM Lance Crewmember/Mlrs Sergeant Goal (LTG) Pt will improve L knee ROM to reach 0 degrees of passive ext and 120 degrees of active flexion to improve function. 05/03/25: good progression: L knee AROM supine 127 deg. Did not measure extension. 05/08/2025 AROM lacking 6 deg ext to 123 deg flexion start of session LTG Duration 10 weeks Assessment Summary Assessment Patient into session with 123 deg flexion. SLS 10 sec L 14 sec R without UE UE, but not yet to 30 sec goal. Hip strength continues to be limited, Glute med bilaterally and L knee flexion strength improved. Physical Therapy Plan Frequency and Duration Frequency of 2x/Week Treatment Duration of 12 treatment (weeks) Plan of Care Start 04/06/25 Date Plan of Care End 06/29/25 Date Next Visit Focus/Plan Next Note Type Treatment Note Next Visit Plan Recheck added SL craig, STS and progress: glute med strengthening, stepping strategies for balance, quad training with terminal knee ext in standing against TB to neutral vs hyper ext
--- NOTE | 2025-05-10 17:00 | PT.OTN ---
Current Diagnoses Bilateral primary osteoarthritis of knee (05/10/25) Presence of left artificial knee joint (05/10/25) Physical Therapy Treatment Note PT-OP-A Visit Information Start: 04/06/25 12:14 Freq: Status: Active Protocol: Document 05/10/25 13:55 GUN REPAIR CLERK (Rec: 05/10/25 14:37 GUN REPAIR CLERK Laptop) Out-Patient Physical Therapy Visit Information Visit Information Visit Type Treatment Note Visit Start Time 13:50 Visit Stop Time 14:33 Visit Number 10 Number of CERTIFIED NURSING ASSISTANT Visits 0 Evaluation Information Evaluation Date 04/06/25 Precautions Precautions Monitor BP, Fall risk PT-OP-B Current Condition Start: 04/06/25 12:14 Freq: Status: Active Protocol: Document 04/06/25 12:14 GUN REPAIR CLERK (Rec: 04/06/25 18:12 GUN REPAIR CLERK Laptop) Current Condition History of Current Condition Onset Date L TKA 11/15/24 Current Complaints LLE edema, balance, LLE strength History of Current Pt amb into session with 4WW and with spouse. Had a L Condition knee replacement 11/15 and had OP PT here at [facility] but was unable to finish d/t high BP and was D/C mid February 2025. Reports issues with edema in LLE but has improved to almost same size as RLE in the mornings . Pt has been logging BP 2x/daily and with consistent levels. Has 2 steps to get into house via porch with railing on L side, reports no difficulty with them. Has been working on home HEP since D/C from PT. Reports no pain in LLE but has tightness/zinging feeling in R thigh. Has difficulty getting into tall bed and steps on step stool. Lifts LLE with BUEs to get in/out of car and bed. No falls since surgery. Prior Treatments and R TKA ~20 years ago. Tests Treatment Goals Patient/Caregiver Would like to walk without AD or with a cane and would Goals like to drive again. PT-OP-C Subjective Start: 04/06/25 12:14 Freq: Status: Active Protocol: Document 05/10/25 13:55 GUN REPAIR CLERK (Rec: 05/10/25 14:37 GUN REPAIR CLERK Laptop) OP-PT Subjective Patient Comments Patient Comments 3/10 pain B low back, reports BP has been low the last 3 days and has an appointment with doctor next week. PT-OP-D Balance Start: 04/06/25 12:14 Freq: Status: Active Protocol: Document 05/08/25 13:37 AB (Rec: 05/08/25 14:36 AB Laptop) Balance Tests Single Limb Standing Single Limb- Right 14 Single Limb- Left 10 PT-OP-G Mobility & Gait Start: 04/06/25 12:14 Freq: Status: Active Protocol: Document 04/06/25 12:14 GUN REPAIR CLERK (Rec: 04/06/25 18:12 GUN REPAIR CLERK Laptop) OP Gait Assessment Comments Gait Comments Amb with 4WW, slight flexion at B hips, steady without LOB PT-OP-K Range of Motion Start: 04/06/25 12:14 Freq: Status: Active Protocol: Document 05/08/25 13:37 AB (Rec: 05/08/25 14:36 AB Laptop) Knee Goniometric Range of Motion Knee L Flexion Active ( 123 degrees) Extension Active ( 6 degrees) Comments ext lacking 6 deg from neutral PT-OP-M Strength Start: 04/06/25 12:14 Freq: Status: Active Protocol: Document 05/08/25 13:37 AB (Rec: 05/08/25 14:36 AB Laptop) Hip Strength Hip Manual Muscle Testing L Flexion (L2) 4- Good- Extension (S1) 3+ Fair+ Abduction 3+ Fair+ R Flexion (L2) 4- Good- Extension (S1) 3+ Fair+ Abduction 4+ Good+ Comments hip abd with hip flexor compensation Knee Strength Knee Manual Muscle Testing L Flexion (S2) 5 Normal Extension (L3) 5 Normal Comments within limited ROM PT-OP-Q Treatments Start: 04/06/25 12:14 Freq: Status: Active Protocol: Document 05/10/25 13:55 GUN REPAIR CLERK (Rec: 05/13/25 12:07 GUN REPAIR CLERK Laptop) Therapeutic Exercises Supine Exercises Quad sets Supine Exercise Name quad sets with hold and overpressure for active L knee ext stretch Side left Equipment Used towel roll under heel Reps/Minutes 10x2 5s hold Manual Therapy Treatment Consent Patient gave verbal Yes consent for manual treatment Soft Tissue Mobilization L hamstring Body Location distal HS, ITB, gastroc/solues Mobilization Type Instrument Assisted Intensity/Depth Moderate/deep Body Position Prone PT-OP-T Assessment and Plan Start: 04/06/25 12:14 Freq: Status: Active Protocol: Document 05/10/25 13:55 GUN REPAIR CLERK (Rec: 05/10/25 14:37 GUN REPAIR CLERK Laptop) Physical Therapy Assessment Impairments Impairments Activity Tolerance,Balance,Edema,Functional Activities, Functional Mobility,Gait,ROM,Soft Tissue Mobility, Strength Goals 3 Impairment Balance Short Term Goal (STG Pt will improve improved balance with SLS of 30s on ) each LE on even ground without UE support to improve safety and function 05/08/2025 SLS 10 sec L 14 sec R without UE use STG Duration 5 weeks Polymerization Supervisor Goal (LTG) Pt will demonstrate gait 150' on even and uneven ground without AD without LOB for improved function. LTG Duration 10 weeks 2 Impairment Strength Impairment Decreased B hip strength Short Term Goal (STG Pt will improve B hip strength by 1 MMT points to ) improve function STG Duration 5 weeks Half-Way Goal (LTG) Pt will improve B hip strength by 3 MMT points to improve function LTG Duration 10 weeks 1 Impairment ROM Impairment L knee ROM Polymerization Supervisor Goal (LTG) Pt will improve L knee ROM to reach 0 degrees of passive ext and 120 degrees of active flexion to improve function. 05/03/25: good progression: L knee AROM supine 127 deg. Did not measure extension. 05/08/2025 AROM lacking 6 deg ext to 123 deg flexion start of session LTG Duration 10 weeks Progress Towards Goals Progress Towards Progressing Toward Goals Goals Assessment Summary Assessment Focused this session on gaining L knee ext, started at 4 degrees resting ext and gained 1 degrees to 3 degrees resting ext after IASTM to L HS, ITB, and gastroc/ soleus with moderate tightness noted in medial and lateral distal HS and ITB with petechiae noted to ITB after session. Physical Therapy Plan Frequency and Duration Frequency of 2x/Week Treatment Duration of 12 treatment (weeks) Plan of Care Start 04/06/25 Date Plan of Care End 06/29/25 Date Therapeutic Interventions Therapeutic Balance Training,Gait Training,Home Exercise Program, Interventions Joint Mobilizations,Lymphedema Management,Manual Therapy,Neuromuscular Re-education,Patient/Caregiver Education,Soft Tissue Mobilization,Therapeutic Activities,Therapeutic Exercises Modalities Cold Pack/Ice Massage,Hot Packs,Ultrasound Next Visit Focus/Plan Next Note Type Treatment Note Next Visit Plan Recheck added SL clamshell, STS and progress: glute med strengthening, stepping strategies for balance, quad training with terminal knee ext in standing against TB to neutral vs hyper ext
--- NOTE | 2025-05-13 12:23 | PT.OTN ---
Current Diagnoses Bilateral primary osteoarthritis of knee (05/10/25) Presence of left artificial knee joint (05/10/25) Physical Therapy Treatment Note PT-OP-A Visit Information Start: 04/06/25 12:14 Freq: Status: Active Protocol: Document 05/10/25 13:55 TWILL CUTTER (Rec: 05/10/25 14:37 TWILL CUTTER Laptop) Out-Patient Physical Therapy Visit Information Visit Information Visit Type Treatment Note Visit Start Time 13:50 Visit Stop Time 14:33 Visit Number 10 Number of PLUG AND MOLD FINISHER Visits 0 Evaluation Information Evaluation Date 04/06/25 Precautions Precautions Monitor BP, Fall risk PT-OP-B Current Condition Start: 04/06/25 12:14 Freq: Status: Active Protocol: Document 04/06/25 12:14 TWILL CUTTER (Rec: 04/06/25 18:12 TWILL CUTTER Laptop) Current Condition History of Current Condition Onset Date L TKA 11/15/24 Current Complaints LLE edema, balance, LLE strength History of Current Pt amb into session with 4WW and with spouse. Had a L Condition knee replacement 11/15 and had OP PT here at [facility] but was unable to finish d/t high BP and was D/C mid February 2025. Reports issues with edema in LLE but has improved to almost same size as RLE in the mornings . Pt has been logging BP 2x/daily and with consistent levels. Has 2 steps to get into house via porch with railing on L side, reports no difficulty with them. Has been working on home HEP since D/C from PT. Reports no pain in LLE but has tightness/zinging feeling in R thigh. Has difficulty getting into tall bed and steps on step stool. Lifts LLE with BUEs to get in/out of car and bed. No falls since surgery. Prior Treatments and R TKA ~20 years ago. Tests Treatment Goals Patient/Caregiver Would like to walk without AD or with a cane and would Goals like to drive again. PT-OP-C Subjective Start: 04/06/25 12:14 Freq: Status: Active Protocol: Document 05/10/25 13:55 TWILL CUTTER (Rec: 05/10/25 14:37 TWILL CUTTER Laptop) OP-PT Subjective Patient Comments Patient Comments 3/10 pain B low back, reports BP has been low the last 3 days and has an appointment with doctor next week. PT-OP-D Balance Start: 04/06/25 12:14 Freq: Status: Active Protocol: Document 05/08/25 13:37 AB (Rec: 05/08/25 14:36 AB Laptop) Balance Tests Single Limb Standing Single Limb- Right 14 Single Limb- Left 10 PT-OP-G Mobility & Gait Start: 04/06/25 12:14 Freq: Status: Active Protocol: Document 04/06/25 12:14 TWILL CUTTER (Rec: 04/06/25 18:12 TWILL CUTTER Laptop) OP Gait Assessment Comments Gait Comments Amb with 4WW, slight flexion at B hips, steady without LOB PT-OP-K Range of Motion Start: 04/06/25 12:14 Freq: Status: Active Protocol: Document 05/08/25 13:37 AB (Rec: 05/08/25 14:36 AB Laptop) Knee Goniometric Range of Motion Knee L Flexion Active ( 123 degrees) Extension Active ( 6 degrees) Comments ext lacking 6 deg from neutral PT-OP-M Strength Start: 04/06/25 12:14 Freq: Status: Active Protocol: Document 05/08/25 13:37 AB (Rec: 05/08/25 14:36 AB Laptop) Hip Strength Hip Manual Muscle Testing L Flexion (L2) 4- Good- Extension (S1) 3+ Fair+ Abduction 3+ Fair+ R Flexion (L2) 4- Good- Extension (S1) 3+ Fair+ Abduction 4+ Good+ Comments hip abd with hip flexor compensation Knee Strength Knee Manual Muscle Testing L Flexion (S2) 5 Normal Extension (L3) 5 Normal Comments within limited ROM PT-OP-Q Treatments Start: 04/06/25 12:14 Freq: Status: Active Protocol: Document 05/10/25 13:55 TWILL CUTTER (Rec: 05/13/25 12:07 TWILL CUTTER Laptop) Therapeutic Exercises Supine Exercises Quad sets Supine Exercise Name quad sets with hold and overpressure for active L knee ext stretch Side left Equipment Used towel roll under heel Reps/Minutes 10x2 5s hold Manual Therapy Treatment Consent Patient gave verbal Yes consent for manual treatment Soft Tissue Mobilization L hamstring Body Location distal HS, ITB, gastroc/solues Mobilization Type Instrument Assisted Intensity/Depth Moderate/deep Body Position Prone PT-OP-T Assessment and Plan Start: 04/06/25 12:14 Freq: Status: Active Protocol: Document 05/10/25 13:55 TWILL CUTTER (Rec: 05/10/25 14:37 TWILL CUTTER Laptop) Physical Therapy Assessment Impairments Impairments Activity Tolerance,Balance,Edema,Functional Activities, Functional Mobility,Gait,ROM,Soft Tissue Mobility, Strength Goals 3 Impairment Balance Short Term Goal (STG Pt will improve improved balance with SLS of 30s on ) each LE on even ground without UE support to improve safety and function 05/08/2025 SLS 10 sec L 14 sec R without UE use STG Duration 5 weeks Body Welder Goal (LTG) Pt will demonstrate gait 150' on even and uneven ground without AD without LOB for improved function. LTG Duration 10 weeks 2 Impairment Strength Impairment Decreased B hip strength Short Term Goal (STG Pt will improve B hip strength by 1 MMT points to ) improve function STG Duration 5 weeks Penitentiary Goal (LTG) Pt will improve B hip strength by 3 MMT points to improve function LTG Duration 10 weeks 1 Impairment ROM Impairment L knee ROM Body Welder Goal (LTG) Pt will improve L knee ROM to reach 0 degrees of passive ext and 120 degrees of active flexion to improve function. 05/03/25: good progression: L knee AROM supine 127 deg. Did not measure extension. 05/08/2025 AROM lacking 6 deg ext to 123 deg flexion start of session LTG Duration 10 weeks Progress Towards Goals Progress Towards Progressing Toward Goals Goals Assessment Summary Assessment Focused this session on gaining L knee ext, started at 4 degrees resting ext and gained 1 degrees to 3 degrees resting ext after IASTM to L HS, ITB, and gastroc/ soleus with moderate tightness noted in medial and lateral distal HS and ITB with petechiae noted to ITB after session. Physical Therapy Plan Frequency and Duration Frequency of 2x/Week Treatment Duration of 12 treatment (weeks) Plan of Care Start 04/06/25 Date Plan of Care End 06/29/25 Date Therapeutic Interventions Therapeutic Balance Training,Gait Training,Home Exercise Program, Interventions Joint Mobilizations,Lymphedema Management,Manual Therapy,Neuromuscular Re-education,Patient/Caregiver Education,Soft Tissue Mobilization,Therapeutic Activities,Therapeutic Exercises Modalities Cold Pack/Ice Massage,Hot Packs,Ultrasound Next Visit Focus/Plan Next Note Type Treatment Note Next Visit Plan Recheck added SL clamshell, STS and progress: glute med strengthening, stepping strategies for balance, quad training with terminal knee ext in standing against TB to neutral vs hyper ext
--- NOTE | 2025-05-15 15:18 | PT.OTN ---
Current Diagnoses Bilateral primary osteoarthritis of knee (05/15/25) Presence of left artificial knee joint (05/15/25) Physical Therapy Treatment Note PT-OP-A Visit Information Start: 04/06/25 12:14 Freq: Status: Active Protocol: Document 05/15/25 13:50 AB (Rec: 05/15/25 14:34 AB [id number]) Out-Patient Physical Therapy Visit Information Visit Information Visit Type Treatment Note Visit Note Visit [email or web address] Visit Start Time 13:50 Visit Stop Time 14:33 Visit Number 11 Number of SHIPPING ORDER CLERK Visits 1 Evaluation Information Evaluation Date 04/06/25 Precautions Precautions Monitor BP, Fall risk PT-OP-B Current Condition Start: 04/06/25 12:14 Freq: Status: Active Protocol: Document 04/06/25 12:14 COLLISION REPAIR TECHNICIAN (Rec: 04/06/25 18:12 COLLISION REPAIR TECHNICIAN Laptop) Current Condition History of Current Condition Onset Date L TKA 11/15/24 Current Complaints LLE edema, balance, LLE strength History of Current Pt amb into session with 4WW and with spouse. Had a L Condition knee replacement 11/15 and had OP PT here at [facility] but was unable to finish d/t high BP and was D/C mid February 2025. Reports issues with edema in LLE but has improved to almost same size as RLE in the mornings . Pt has been logging BP 2x/daily and with consistent levels. Has 2 steps to get into house via porch with railing on L side, reports no difficulty with them. Has been working on home HEP since D/C from PT. Reports no pain in LLE but has tightness/zinging feeling in R thigh. Has difficulty getting into tall bed and steps on step stool. Lifts LLE with BUEs to get in/out of car and bed. No falls since surgery. Prior Treatments and R TKA ~20 years ago. Tests Treatment Goals Patient/Caregiver Would like to walk without AD or with a cane and would Goals like to drive again. PT-OP-C Subjective Start: 04/06/25 12:14 Freq: Status: Active Protocol: Document 05/15/25 13:50 AB (Rec: 05/15/25 14:34 AB [id number]) OP-PT Subjective Patient Comments Patient Comments AROM L knee lacking 4 deg ext to 126 deg flexion start of session. Lionel rates back pain 4/10 comments he has had it a couple of weeks. SLS L LE 2 sec R LE 12 sec start of session without UE use reports patient has had low BP. PT-OP-D Balance Start: 04/06/25 12:14 Freq: Status: Active Protocol: Document 05/08/25 13:37 AB (Rec: 05/08/25 14:36 AB Laptop) Balance Tests Single Limb Standing Single Limb- Right 14 Single Limb- Left 10 PT-OP-G Mobility & Gait Start: 04/06/25 12:14 Freq: Status: Active Protocol: Document 04/06/25 12:14 COLLISION REPAIR TECHNICIAN (Rec: 04/06/25 18:12 COLLISION REPAIR TECHNICIAN Laptop) OP Gait Assessment Comments Gait Comments Amb with 4WW, slight flexion at B hips, steady without LOB PT-OP-K Range of Motion Start: 04/06/25 12:14 Freq: Status: Active Protocol: Document 05/08/25 13:37 AB (Rec: 05/08/25 14:36 AB Laptop) Knee Goniometric Range of Motion Knee L Flexion Active ( 123 degrees) Extension Active ( 6 degrees) Comments ext lacking 6 deg from neutral PT-OP-M Strength Start: 04/06/25 12:14 Freq: Status: Active Protocol: Document 05/08/25 13:37 AB (Rec: 05/08/25 14:36 AB Laptop) Hip Strength Hip Manual Muscle Testing L Flexion (L2) 4- Good- Extension (S1) 3+ Fair+ Abduction 3+ Fair+ R Flexion (L2) 4- Good- Extension (S1) 3+ Fair+ Abduction 4+ Good+ Comments hip abd with hip flexor compensation Knee Strength Knee Manual Muscle Testing L Flexion (S2) 5 Normal Extension (L3) 5 Normal Comments within limited ROM PT-OP-Q Treatments Start: 04/06/25 12:14 Freq: Status: Active Protocol: Document 05/15/25 13:50 AB (Rec: 05/15/25 14:34 AB [id number]) Therapeutic Exercises Supine Exercises piriformis stretch Side bilateral Reps/Minutes 60 sec each LE X 1 Comments verbal and tactile cues Sidelying Exercises clamshell Resistance Tb #1 around thighs Reps/Minutes 15reps each side Comments VC and tactile cues to avoid rolling back Sitting Exercises seated hip abd with band Sitting Exercise 1. x15 reps 2. 30s hold Name Side bilateral Resistance L3 band Reps/Minutes x15 Comments prior to standing balance exercise Standing Exercises step ups Standing Exercise 6 inch step, step up step back Name Side bilateral Reps/Minutes 10xeach LE Comments TC for full knee ext on L calf stretch on step Standing Exercise with bilateral rails ANGIE Name Reps/Minutes 60 sec with knees straight 60 sec knees bent Neuro Re-Education Treatment Balance Activities SLS Details CGA Reps/Duration 1-2 X 3 tandem stepping Details CGA hands above bars Reps/Duration 10 feet X 4 Comments verbal cues step up taps Details foam to 6 inch step Reps/Duration X 10 each LE Comments CGA PT-OP-T Assessment and Plan Start: 04/06/25 12:14 Freq: Status: Active Protocol: Document 05/15/25 13:50 AB (Rec: 05/15/25 14:34 AB [id number]) Physical Therapy Assessment Goals 3 Impairment Balance Short Term Goal (STG Pt will improve improved balance with SLS of 30s on ) each LE on even ground without UE support to improve safety and function 05/08/2025 SLS 10 sec L 14 sec R without UE use STG Duration 5 weeks Correction Goal (LTG) Pt will demonstrate gait 150' on even and uneven ground without AD without LOB for improved function. LTG Duration 10 weeks 2 Impairment Strength Impairment Decreased B hip strength Short Term Goal (STG Pt will improve B hip strength by 1 MMT points to ) improve function STG Duration 5 weeks Correction Goal (LTG) Pt will improve B hip strength by 3 MMT points to improve function LTG Duration 10 weeks 1 Impairment ROM Impairment L knee ROM Correction Goal (LTG) Pt will improve L knee ROM to reach 0 degrees of passive ext and 120 degrees of active flexion to improve function. 05/03/25: good progression: L knee AROM supine 127 deg. Did not measure extension. 05/08/2025 AROM lacking 6 deg ext to 123 deg flexion start of session LTG Duration 10 weeks Assessment Summary Assessment 105/52 HR 48 BPM R UE seated, SLS L LE increased post glute med activation Physical Therapy Plan Frequency and Duration Frequency of 2x/Week Treatment Duration of 12 treatment (weeks) Plan of Care Start 04/06/25 Date Plan of Care End 06/29/25 Date Next Visit Focus/Plan Next Note Type Treatment Note Next Visit Plan Recheck STS and progress: glute med strengthening, stepping strategies for balance, quad training with terminal knee ext in standing against TB to neutral vs hyper ext
--- NOTE | 2025-05-17 13:06 | PT.OTN ---
Current Diagnoses Bilateral primary osteoarthritis of knee (05/17/25) Presence of left artificial knee joint (05/17/25) Physical Therapy Treatment Note PT-OP-A Visit Information Start: 04/06/25 12:14 Freq: Status: Active Protocol: Document 05/17/25 14:10 HOTEL FRONT OFFICE MANAGER (Rec: 05/17/25 14:38 HOTEL FRONT OFFICE MANAGER Laptop) Out-Patient Physical Therapy Visit Information Visit Information Visit Type Treatment Note Visit Start Time 13:52 Visit Stop Time 14:35 Visit Number 12 Number of DIET TECH Visits 0 Evaluation Information Evaluation Date 04/06/25 Precautions Precautions Monitor BP, Fall risk PT-OP-B Current Condition Start: 04/06/25 12:14 Freq: Status: Active Protocol: Document 04/06/25 12:14 HOTEL FRONT OFFICE MANAGER (Rec: 04/06/25 18:12 HOTEL FRONT OFFICE MANAGER Laptop) Current Condition History of Current Condition Onset Date L TKA 11/15/24 Current Complaints LLE edema, balance, LLE strength History of Current Pt amb into session with 4WW and with spouse. Had a L Condition knee replacement 11/15 and had OP PT here at but was unable to finish d/t high BP and was D/C mid February 2025. Reports issues with edema in LLE but has improved to almost same size as RLE in the mornings . Pt has been logging BP 2x/daily and with consistent levels. Has 2 steps to get into house via porch with railing on L side, reports no difficulty with them. Has been working on home HEP since D/C from PT. Reports no pain in LLE but has tightness/zinging feeling in R thigh. Has difficulty getting into tall bed and steps on step stool. Lifts LLE with BUEs to get in/out of car and bed. No falls since surgery. Prior Treatments and R TKA ~20 years ago. Tests Treatment Goals Patient/Caregiver Would like to walk without AD or with a cane and would Goals like to drive again. PT-OP-C Subjective Start: 04/06/25 12:14 Freq: Status: Active Protocol: Document 05/17/25 14:10 HOTEL FRONT OFFICE MANAGER (Rec: 05/20/25 13:04 HOTEL FRONT OFFICE MANAGER Laptop) OP-PT Subjective Patient Comments Patient Comments Pt arrives with 4WW and spouse, reports no changes since last session. Current L knee ext measurements 4 degrees resting, 2 degrees with active quad set. PT-OP-D Balance Start: 04/06/25 12:14 Freq: Status: Active Protocol: Document 05/08/25 13:37 AB (Rec: 05/08/25 14:36 AB Laptop) Balance Tests Single Limb Standing Single Limb- Right 14 Single Limb- Left 10 PT-OP-G Mobility & Gait Start: 04/06/25 12:14 Freq: Status: Active Protocol: Document 04/06/25 12:14 HOTEL FRONT OFFICE MANAGER (Rec: 04/06/25 18:12 HOTEL FRONT OFFICE MANAGER Laptop) OP Gait Assessment Comments Gait Comments Amb with 4WW, slight flexion at B hips, steady without LOB PT-OP-K Range of Motion Start: 04/06/25 12:14 Freq: Status: Active Protocol: Document 05/08/25 13:37 AB (Rec: 05/08/25 14:36 AB Laptop) Knee Goniometric Range of Motion Knee L Flexion Active ( 123 degrees) Extension Active ( 6 degrees) Comments ext lacking 6 deg from neutral PT-OP-M Strength Start: 04/06/25 12:14 Freq: Status: Active Protocol: Document 05/08/25 13:37 AB (Rec: 05/08/25 14:36 AB Laptop) Hip Strength Hip Manual Muscle Testing L Flexion (L2) 4- Good- Extension (S1) 3+ Fair+ Abduction 3+ Fair+ R Flexion (L2) 4- Good- Extension (S1) 3+ Fair+ Abduction 4+ Good+ Comments hip abd with hip flexor compensation Knee Strength Knee Manual Muscle Testing L Flexion (S2) 5 Normal Extension (L3) 5 Normal Comments within limited ROM PT-OP-Q Treatments Start: 04/06/25 12:14 Freq: Status: Active Protocol: Document 05/17/25 14:10 HOTEL FRONT OFFICE MANAGER (Rec: 05/20/25 13:04 HOTEL FRONT OFFICE MANAGER Laptop) Gym Equipment Shuttle Recovery BLE Resistance #125 lbs Reps/Time x50 reps, VC for deep squat and full ext with control Therapeutic Exercises Standing Exercises Squats Standing Exercise L4 TB at R post knee for TC into neutral ext Name Reps/Minutes 10x2 Comments TC/VC for squat form terminal knee ext Standing Exercise L4 TB at post knee for TC into neutral ext Name Side bilateral Equipment Used TB Reps/Minutes 10x3 each side Comments TC/VC at L knee for full ext, at R knee to stop at neutral vs hyperext PT-OP-T Assessment and Plan Start: 04/06/25 12:14 Freq: Status: Active Protocol: Document 05/17/25 14:10 HOTEL FRONT OFFICE MANAGER (Rec: 05/20/25 13:04 HOTEL FRONT OFFICE MANAGER Laptop) Physical Therapy Assessment Goals 3 Impairment Balance Short Term Goal (STG Pt will improve improved balance with SLS of 30s on ) each LE on even ground without UE support to improve safety and function 05/08/2025 SLS 10 sec L 14 sec R without UE use STG Duration 5 weeks Custodial Goal (LTG) Pt will demonstrate gait 150' on even and uneven ground without AD without LOB for improved function. LTG Duration 10 weeks 2 Impairment Strength Impairment Decreased B hip strength Short Term Goal (STG Pt will improve B hip strength by 1 MMT points to ) improve function STG Duration 5 weeks Custodial Goal (LTG) Pt will improve B hip strength by 3 MMT points to improve function LTG Duration 10 weeks 1 Impairment ROM Impairment L knee ROM Custodial Goal (LTG) Pt will improve L knee ROM to reach 0 degrees of passive ext and 120 degrees of active flexion to improve function. 05/03/25: good progression: L knee AROM supine 127 deg. Did not measure extension. 05/08/2025 AROM lacking 6 deg ext to 123 deg flexion start of session LTG Duration 10 weeks Progress Towards Goals Progress Towards Progressing Toward Goals Goals Assessment Summary Assessment Pt tolerated L knee full ext training for full ext and R knee ext training to neutral via functional mobility in standing and squats this session. L knee ext remains same from beginning of session but demonstrates improved quad control at end of session. Physical Therapy Plan Frequency and Duration Frequency of 2x/Week Treatment Duration of 12 treatment (weeks) Plan of Care Start 04/06/25 Date Plan of Care End 06/29/25 Date Therapeutic Interventions Therapeutic Balance Training,Gait Training,Home Exercise Program, Interventions Joint Mobilizations,Lymphedema Management,Manual Therapy,Neuromuscular Re-education,Patient/Caregiver Education,Soft Tissue Mobilization,Therapeutic Activities,Therapeutic Exercises Modalities Cold Pack/Ice Massage,Hot Packs,Ultrasound Next Visit Focus/Plan Next Note Type Treatment Note Next Visit Plan Recheck STS and progress: glute med strengthening, stepping strategies for balance, quad training with terminal knee ext in standing against TB to neutral vs hyper ext
--- NOTE | 2025-06-05 19:56 | PT.OTN ---
Current Diagnoses Bilateral primary osteoarthritis of knee (06/05/25) Presence of left artificial knee joint (06/05/25) Physical Therapy Treatment Note PT-OP-A Visit Information Start: 04/06/25 12:14 Freq: Status: Active Protocol: Document 06/05/25 16:17 MOVIE STUNT PERFORMER (Rec: 06/05/25 17:08 MOVIE STUNT PERFORMER Laptop) Out-Patient Physical Therapy Visit Information Visit Information Visit Type Progress Note Visit Start Time 16:20 Visit Stop Time 17:08 Visit Number 13 Number of HULL DRAFTER Visits 0 Evaluation Information Evaluation Date 04/06/25 Precautions Precautions Monitor BP, Fall risk PT-OP-B Current Condition Start: 04/06/25 12:14 Freq: Status: Active Protocol: Document 04/06/25 12:14 MOVIE STUNT PERFORMER (Rec: 04/06/25 18:12 MOVIE STUNT PERFORMER Laptop) Current Condition History of Current Condition Onset Date L TKA 11/15/24 Current Complaints LLE edema, balance, LLE strength History of Current Pt amb into session with 4WW and with spouse. Had a L Condition knee replacement 11/15 and had OP PT here at [facility] but was unable to finish d/t high BP and was D/C mid February 2025. Reports issues with edema in LLE but has improved to almost same size as RLE in the mornings . Pt has been logging BP 2x/daily and with consistent levels. Has 2 steps to get into house via porch with railing on L side, reports no difficulty with them. Has been working on home HEP since D/C from PT. Reports no pain in LLE but has tightness/zinging feeling in R thigh. Has difficulty getting into tall bed and steps on step stool. Lifts LLE with BUEs to get in/out of car and bed. No falls since surgery. Prior Treatments and R TKA ~20 years ago. Tests Treatment Goals Patient/Caregiver Would like to walk without AD or with a cane and would Goals like to drive again. PT-OP-C Subjective Start: 04/06/25 12:14 Freq: Status: Active Protocol: Document 06/05/25 16:17 MOVIE STUNT PERFORMER (Rec: 06/05/25 17:08 MOVIE STUNT PERFORMER Laptop) OP-PT Subjective Patient Comments Patient Comments Pt reports he was feeling really good but then last week he felt really shaky and had R chest pain and lower abdominal pain, reports his BP was low and he went to see his leaflet distributor who changed his medication dosage, has not noticed a difference yet d/t it being only a few days since appointment. Pt also reports he tripped and fell over a cord last week with a bruise on forehead and abrasion on nose but without other injury . BP 94/55 PT-OP-D Balance Start: 04/06/25 12:14 Freq: Status: Active Protocol: Document 05/08/25 13:37 AB (Rec: 05/08/25 14:36 AB Laptop) Balance Tests Single Limb Standing Single Limb- Right 14 Single Limb- Left 10 PT-OP-G Mobility & Gait Start: 04/06/25 12:14 Freq: Status: Active Protocol: Document 04/06/25 12:14 MOVIE STUNT PERFORMER (Rec: 04/06/25 18:12 MOVIE STUNT PERFORMER Laptop) OP Gait Assessment Comments Gait Comments Amb with 4WW, slight flexion at B hips, steady without LOB PT-OP-K Range of Motion Start: 04/06/25 12:14 Freq: Status: Active Protocol: Document 05/08/25 13:37 AB (Rec: 05/08/25 14:36 AB Laptop) Knee Goniometric Range of Motion Knee L Flexion Active ( 123 degrees) Extension Active ( 6 degrees) Comments ext lacking 6 deg from neutral PT-OP-M Strength Start: 04/06/25 12:14 Freq: Status: Active Protocol: Document 06/05/25 16:17 MOVIE STUNT PERFORMER (Rec: 06/05/25 17:08 MOVIE STUNT PERFORMER Laptop) Hip Strength Hip Manual Muscle Testing L Flexion (L2) 4 Good Extension (S1) 4- Good- Abduction 4 Good R Flexion (L2) 4 Good Extension (S1) 4- Good- Abduction 4+ Good+ Comments without hip flexor compensation PT-OP-Q Treatments Start: 04/06/25 12:14 Freq: Status: Active Protocol: Document 06/05/25 16:17 MOVIE STUNT PERFORMER (Rec: 06/05/25 17:08 MOVIE STUNT PERFORMER Laptop) Therapeutic Exercises Prone Exercises Hip ext Side bilateral Reps/Minutes x10 Sidelying Exercises Hip Abd Sidelying Exercise SLR with support at posterior hip to prevent roll back Name Side bilateral Resistance against gravity Reps/Minutes x10 each side Comments tactile cues for maintain stacked alignment- challenge maintain Manual Therapy Treatment Consent Patient gave verbal Yes consent for manual treatment Soft Tissue Mobilization L hamstring Body Location lateral HS And gastroc Mobilization Type Instrument Assisted Intensity/Depth Deep Body Position Sidelying Comments IASTM to distal lateral HS and proximal lateral gastroc prior to last knee ext measurement Neuro Re-Education Treatment Balance Activities SLS Details even floor, without UE support Comments R 10s, 9s L 5s, 5s PT-OP-T Assessment and Plan Start: 04/06/25 12:14 Freq: Status: Active Protocol: Document 06/05/25 16:17 MOVIE STUNT PERFORMER (Rec: 06/05/25 17:08 MOVIE STUNT PERFORMER Laptop) Physical Therapy Assessment Goals 3 Impairment Balance Short Term Goal (STG Pt will improve improved balance with SLS of 30s on ) each LE on even ground without UE support to improve safety and function 05/08/2025 SLS 10 sec L 14 sec R without UE use 06/05: Progressing: SLS R 10s, L 5s STG Duration 5 weeks Offset Printing Pressmen Goal (LTG) Pt will demonstrate gait 150' on even and uneven ground without AD without LOB for improved function. LTG Duration 10 weeks 2 Impairment Strength Impairment Decreased B hip strength Short Term Goal (STG Pt will improve B hip strength by 1 MMT points to ) improve function 06/05: Progressing, all improved by 1-2 MMT points except R hip abd maintained at 4+/5 STG Duration 5 weeks Offset Printing Pressmen Goal (LTG) Pt will improve B hip strength by 3 MMT points to improve function 06/05: Progressing LTG Duration 10 weeks 1 Impairment ROM Impairment L knee ROM Alf Goal (LTG) Pt will improve L knee ROM to reach 0 degrees of passive ext and 120 degrees of active flexion to improve function. 05/03/25: good progression: L knee AROM supine 127 deg. Did not measure extension. 05/08/2025 AROM lacking 6 deg ext to 123 deg flexion start of session 06/05: Progressing, AROM lacking 3 deg ext, after STM 2 deg ext LTG Duration 10 weeks Assessment Summary Assessment Pt is progressing towards all goals in balance, strength, and ROM but not yet meeting goals. Pt will benefit from continued PT to improve all areas. Physical Therapy Plan Frequency and Duration Frequency of 2x/Week Treatment Duration of 12 treatment (weeks) Plan of Care Start 04/06/25 Date Plan of Care End 06/29/25 Date Therapeutic Interventions Therapeutic Balance Training,Gait Training,Home Exercise Program, Interventions Joint Mobilizations,Lymphedema Management,Manual Therapy,Neuromuscular Re-education,Patient/Caregiver Education,Soft Tissue Mobilization,Therapeutic Activities,Therapeutic Exercises Modalities Cold Pack/Ice Massage,Hot Packs,Ultrasound Next Visit Focus/Plan Next Note Type Treatment Note Next Visit Plan Recheck STS and progress: glute med strengthening, stepping strategies for balance, gait training with SPC
--- NOTE | 2025-06-06 18:55 | PT.OTN ---
Current Diagnoses Bilateral primary osteoarthritis of knee (06/06/25) Presence of left artificial knee joint (06/06/25) Physical Therapy Treatment Note PT-OP-A Visit Information Start: 04/06/25 12:14 Freq: Status: Active Protocol: Document 06/06/25 17:16 TUCKPOINTER (Rec: 06/06/25 18:55 TUCKPOINTER Laptop) Out-Patient Physical Therapy Visit Information Visit Information Visit Type Treatment Note Visit Start Time 17:05 Visit Stop Time 17:50 Visit Number 14 Number of LITERACY CONSULTANT Visits 0 Evaluation Information Evaluation Date 04/06/25 Precautions Precautions Monitor BP, Fall risk PT-OP-B Current Condition Start: 04/06/25 12:14 Freq: Status: Active Protocol: Document 04/06/25 12:14 TUCKPOINTER (Rec: 04/06/25 18:12 TUCKPOINTER Laptop) Current Condition History of Current Condition Onset Date L TKA 11/15/24 Current Complaints LLE edema, balance, LLE strength History of Current Pt amb into session with 4WW and with spouse. Had a L Condition knee replacement 11/15 and had OP PT here at [facility] but was unable to finish d/t high BP and was D/C mid February 2025. Reports issues with edema in LLE but has improved to almost same size as RLE in the mornings . Pt has been logging BP 2x/daily and with consistent levels. Has 2 steps to get into house via porch with railing on L side, reports no difficulty with them. Has been working on home HEP since D/C from PT. Reports no pain in LLE but has tightness/zinging feeling in R thigh. Has difficulty getting into tall bed and steps on step stool. Lifts LLE with BUEs to get in/out of car and bed. No falls since surgery. Prior Treatments and R TKA ~20 years ago. Tests Treatment Goals Patient/Caregiver Would like to walk without AD or with a cane and would Goals like to drive again. PT-OP-C Subjective Start: 04/06/25 12:14 Freq: Status: Active Protocol: Document 06/06/25 17:16 TUCKPOINTER (Rec: 06/06/25 18:55 TUCKPOINTER Laptop) OP-PT Subjective Patient Comments Patient Comments Pt reports feeling a little better today vs yesterday but still feeling weak and shaky. PT-OP-D Balance Start: 04/06/25 12:14 Freq: Status: Active Protocol: Document 05/08/25 13:37 AB (Rec: 05/08/25 14:36 AB Laptop) Balance Tests Single Limb Standing Single Limb- Right 14 Single Limb- Left 10 PT-OP-G Mobility & Gait Start: 04/06/25 12:14 Freq: Status: Active Protocol: Document 04/06/25 12:14 TUCKPOINTER (Rec: 04/06/25 18:12 TUCKPOINTER Laptop) OP Gait Assessment Comments Gait Comments Amb with 4WW, slight flexion at B hips, steady without LOB PT-OP-K Range of Motion Start: 04/06/25 12:14 Freq: Status: Active Protocol: Document 05/08/25 13:37 AB (Rec: 05/08/25 14:36 AB Laptop) Knee Goniometric Range of Motion Knee L Flexion Active ( 123 degrees) Extension Active ( 6 degrees) Comments ext lacking 6 deg from neutral PT-OP-M Strength Start: 04/06/25 12:14 Freq: Status: Active Protocol: Document 06/05/25 16:17 TUCKPOINTER (Rec: 06/05/25 17:08 TUCKPOINTER Laptop) Hip Strength Hip Manual Muscle Testing L Flexion (L2) 4 Good Extension (S1) 4- Good- Abduction 4 Good R Flexion (L2) 4 Good Extension (S1) 4- Good- Abduction 4+ Good+ Comments without hip flexor compensation PT-OP-Q Treatments Start: 04/06/25 12:14 Freq: Status: Active Protocol: Document 06/06/25 17:16 TUCKPOINTER (Rec: 06/06/25 18:55 TUCKPOINTER Laptop) Gym Equipment Shuttle Recovery BLE Resistance #100, #125 Reps/Time x20 reps each weight, ball squeeze between knees Therapeutic Exercises Sitting Exercises Marching Side bilateral Reps/Minutes x10 alt Comments support at back to prevent lean compensation, limited B hip flex Standing Exercises Marching Side bilateral Reps/Minutes x10 Comments without UE support, CGA with x1 LOB Gait Training Gait Activity Side stepping Device Used none Level of Assistance CGA Surface even Distance/Duration 10'x6 Treatment Focus balance Comments side stepping without AD, minimally unsteady but without LOB 2 Description gait Device Used SPC Level of Assistance CGA Surface even Distance/Duration ~350 Treatment Focus training to advance to SPC Comments SPC in R hand with good 2 point patterning without VC, slight unsteady with LOBs only during turns 1 Description stairs Device Used SPC, HR, 4WW Level of Assistance CGA Surface 6 stairs Treatment Focus safety on stairs Comments SPC and 1 HR with step to pattern 4x4 stairs steady without LOB, pt requests best way to ascend stairs with 4WW and demonstrates way he descends with 4WW, ultimately recommended not to use 4WW on stairs for safety and for spouse to fold 4WW and carry up/down for pt PT-OP-T Assessment and Plan Start: 04/06/25 12:14 Freq: Status: Active Protocol: Document 06/06/25 17:16 TUCKPOINTER (Rec: 06/06/25 18:55 TUCKPOINTER Laptop) Physical Therapy Assessment Goals 3 Impairment Balance Short Term Goal (STG Pt will improve improved balance with SLS of 30s on ) each LE on even ground without UE support to improve safety and function 05/08/2025 SLS 10 sec L 14 sec R without UE use 06/05: Progressing: SLS R 10s, L 5s STG Duration 5 weeks Electrical Instrument Repairer Goal (LTG) Pt will demonstrate gait 150' on even and uneven ground without AD without LOB for improved function. LTG Duration 10 weeks 2 Impairment Strength Impairment Decreased B hip strength Short Term Goal (STG Pt will improve B hip strength by 1 MMT points to ) improve function 06/05: Progressing, all improved by 1-2 MMT points except R hip abd maintained at 4+/5 STG Duration 5 weeks Electrical Instrument Repairer Goal (LTG) Pt will improve B hip strength by 3 MMT points to improve function 06/05: Progressing LTG Duration 10 weeks 1 Impairment ROM Impairment L knee ROM Electrical Instrument Repairer Goal (LTG) Pt will improve L knee ROM to reach 0 degrees of passive ext and 120 degrees of active flexion to improve function. 05/03/25: good progression: L knee AROM supine 127 deg. Did not measure extension. 05/08/2025 AROM lacking 6 deg ext to 123 deg flexion start of session 06/05: Progressing, AROM lacking 3 deg ext, after STM 2 deg ext LTG Duration 10 weeks Assessment Summary Assessment Pt performed gait training with SPC well but still demonstrates unsteadiness and LOB while turning, not yet ready to transition from 4WW to SPC. Pt demonstrates decreased B hip flex in sitting but not in standing possibly d/t tight B glutes. Physical Therapy Plan Frequency and Duration Frequency of 2x/Week Treatment Duration of 12 treatment (weeks) Plan of Care Start 04/06/25 Date Plan of Care End 06/29/25 Date Therapeutic Interventions Therapeutic Balance Training,Gait Training,Home Exercise Program, Interventions Joint Mobilizations,Lymphedema Management,Manual Therapy,Neuromuscular Re-education,Patient/Caregiver Education,Soft Tissue Mobilization,Therapeutic Activities,Therapeutic Exercises Modalities Cold Pack/Ice Massage,Hot Packs,Ultrasound Next Visit Focus/Plan Next Note Type Treatment Note Next Visit Plan balance training while turning, stepping strategies for balance, B glute stretching
--- NOTE | 2025-06-07 15:50 | PT.OTN ---
Current Diagnoses Bilateral primary osteoarthritis of knee (06/07/25) Presence of left artificial knee joint (06/07/25) Physical Therapy Treatment Note PT-OP-A Visit Information Start: 04/06/25 12:14 Freq: Status: Active Protocol: Document 06/07/25 14:35 AB (Rec: 06/07/25 15:45 AB [id number]) Out-Patient Physical Therapy Visit Information Visit Information Visit Type Treatment Note Visit Note Visit [email or web address]: [email or web address] Visit Start Time 14:35 Visit Stop Time 15:15 Visit Number 15 Number of PERSONAL BANKING OFFICER Visits 1 PT-OP-B Current Condition Start: 04/06/25 12:14 Freq: Status: Active Protocol: Document 04/06/25 12:14 CREAM HAULER (Rec: 04/06/25 18:12 CREAM HAULER Laptop) Current Condition History of Current Condition Onset Date L TKA 11/15/24 Current Complaints LLE edema, balance, LLE strength History of Current Pt amb into session with 4WW and with spouse. Had a L Condition knee replacement 11/15 and had OP PT here at [facility] but was unable to finish d/t high BP and was D/C mid February 2025. Reports issues with edema in LLE but has improved to almost same size as RLE in the mornings . Pt has been logging BP 2x/daily and with consistent levels. Has 2 steps to get into house via porch with railing on L side, reports no difficulty with them. Has been working on home HEP since D/C from PT. Reports no pain in LLE but has tightness/zinging feeling in R thigh. Has difficulty getting into tall bed and steps on step stool. Lifts LLE with BUEs to get in/out of car and bed. No falls since surgery. Prior Treatments and R TKA ~20 years ago. Tests Treatment Goals Patient/Caregiver Would like to walk without AD or with a cane and would Goals like to drive again. PT-OP-C Subjective Start: 04/06/25 12:14 Freq: Status: Active Protocol: Document 06/07/25 14:35 AB (Rec: 06/07/25 15:45 AB [id number]) OP-PT Subjective Patient Comments Patient Comments Patient reports he is still sore from his fall Wednesday . SLS 2 sec L and right LE PT-OP-D Balance Start: 04/06/25 12:14 Freq: Status: Active Protocol: Document 05/08/25 13:37 AB (Rec: 05/08/25 14:36 AB Laptop) Balance Tests Single Limb Standing Single Limb- Right 14 Single Limb- Left 10 PT-OP-G Mobility & Gait Start: 04/06/25 12:14 Freq: Status: Active Protocol: Document 04/06/25 12:14 CREAM HAULER (Rec: 04/06/25 18:12 CREAM HAULER Laptop) OP Gait Assessment Comments Gait Comments Amb with 4WW, slight flexion at B hips, steady without LOB PT-OP-K Range of Motion Start: 04/06/25 12:14 Freq: Status: Active Protocol: Document 05/08/25 13:37 AB (Rec: 05/08/25 14:36 AB Laptop) Knee Goniometric Range of Motion Knee L Flexion Active ( 123 degrees) Extension Active ( 6 degrees) Comments ext lacking 6 deg from neutral PT-OP-M Strength Start: 04/06/25 12:14 Freq: Status: Active Protocol: Document 06/05/25 16:17 CREAM HAULER (Rec: 06/05/25 17:08 CREAM HAULER Laptop) Hip Strength Hip Manual Muscle Testing L Flexion (L2) 4 Good Extension (S1) 4- Good- Abduction 4 Good R Flexion (L2) 4 Good Extension (S1) 4- Good- Abduction 4+ Good+ Comments without hip flexor compensation PT-OP-Q Treatments Start: 04/06/25 12:14 Freq: Status: Active Protocol: Document 06/07/25 14:35 AB (Rec: 06/07/25 15:45 AB [id number]) Gym Equipment Shuttle Balance red Details normal KUSHAL Comments CGA with head turns Therapeutic Exercises Supine Exercises piriformis stretch Supine Exercise Name HEP Side bilateral Reps/Minutes 60 sec each LE X 2 Comments verbal and tactile cues Sitting Exercises seated hip abd with band Sitting Exercise 1. x15 reps 2. 30s hold Name Side bilateral Resistance L3 band L 4 band. Reps/Minutes 60 sec hold each band then X 15 reps without hold level 4 ban Comments SLS Standing Exercises Squats Standing Exercise sit to stand with band Name Side bilateral Resistance level 4 banad Reps/Minutes 2 X8 Comments VC for inc hip hinge CGA Neuro Re-Education Treatment Balance Activities foam Details ball toss Reps/Duration 2-3 min Comments CGA ambulation without device Details CGA to min assist Reps/Duration 3 min Comments with head turns and scanning LOB to R with min assist to correct SLS Details even floor, without UE support Reps/Duration 3 reps X 2 Comments CGA PT-OP-T Assessment and Plan Start: 04/06/25 12:14 Freq: Status: Active Protocol: Document 06/07/25 14:35 AB (Rec: 06/07/25 15:45 AB [id number]) Physical Therapy Assessment Goals 3 Impairment Balance Short Term Goal (STG Pt will improve improved balance with SLS of 30s on ) each LE on even ground without UE support to improve safety and function 05/08/2025 SLS 10 sec L 14 sec R without UE use 06/05: Progressing: SLS R 10s, L 5s STG Duration 5 weeks Usp Goal (LTG) Pt will demonstrate gait 150' on even and uneven ground without AD without LOB for improved function. LTG Duration 10 weeks 2 Impairment Strength Impairment Decreased B hip strength Short Term Goal (STG Pt will improve B hip strength by 1 MMT points to ) improve function 06/05: Progressing, all improved by 1-2 MMT points except R hip abd maintained at 4+/5 STG Duration 5 weeks Usp Goal (LTG) Pt will improve B hip strength by 3 MMT points to improve function 06/05: Progressing LTG Duration 10 weeks 1 Impairment ROM Impairment L knee ROM Usp Goal (LTG) Pt will improve L knee ROM to reach 0 degrees of passive ext and 120 degrees of active flexion to improve function. 05/03/25: good progression: L knee AROM supine 127 deg. Did not measure extension. 05/08/2025 AROM lacking 6 deg ext to 123 deg flexion start of session 06/05: Progressing, AROM lacking 3 deg ext, after STM 2 deg ext LTG Duration 10 weeks Assessment Summary Assessment SLS significantly improves post glute med activation, although increased LOB with head turn right required min assist post glute med activation this session Physical Therapy Plan Frequency and Duration Frequency of 2x/Week Treatment Duration of 12 treatment (weeks) Plan of Care Start 04/06/25 Date Plan of Care End 06/29/25 Date Next Visit Focus/Plan Next Note Type Treatment Note Next Visit Plan balance training while turning, stepping strategies for balance, B glute stretching
--- NOTE | 2025-06-14 19:27 | PT.OTN ---
Current Diagnoses Bilateral primary osteoarthritis of knee (06/14/25) Presence of left artificial knee joint (06/14/25) Physical Therapy Treatment Note PT OP: Lower Back/Lower Extremity Start: 06/14/25 16:15 Freq: Status: Active Protocol: Document 06/14/25 16:15 GRINDER SET UP OPERATOR THREAD TOOL (Rec: 06/14/25 17:03 GRINDER SET UP OPERATOR THREAD TOOL Laptop) Out-Patient Physical Therapy Visit Information Visit Information Visit Type Treatment Note Visit Start Time 16:17 Visit Stop Time 17:00 Visit Number 16 Number of LUMBER INSPECTOR Visits 0 Progress Note Due 07/05/25 OP-PT Subjective Patient Comments Patient Comments Pt reports no changes since last session, currently has no pain. Therapeutic Exercises Supine Exercises Glute stretch Supine Exercise Name 1. B glute max 2. L glute med 3. L hip flexor off edge of bed Side bilateral Reps/Minutes 30s x2 Comments pinching of R hip flexors with glute max stretch, not improved with MT Therapeutic Activity Therapeutic Activity Sit<>stand Reps/Minutes x5 Comments cueing to push from seat to stand vs pulling to 4WW, reaching a hand back to seat while lowering, and not bracing backs of knees against chair to support during sit<>stand Manual Therapy Treatment Consent Patient gave verbal Yes consent for manual treatment Joint Mobilizations Hip Joint R hip Grade III Body Position Hooklying Comments 1. longitudinal distraction 2. lateral, inferior all with strap Neuro Re-Education Treatment Balance Activities Hurdles Details forward, R and L lateral Surface even Equipment in // bars for safety Reps/Duration x10 hurdles each Comments without UE support, CGA with min A to correct 2 small LOBs foam Details 1. static stance 30s 2. static stance head turns up/ down/R/L Reps/Duration 1. 30s 2. x10 each Comments slight post weight shift when looking up and turning L but improved with each rep Physical Therapy Assessment Goals 3 Impairment Balance Short Term Goal (STG Pt will improve improved balance with SLS of 30s on ) each LE on even ground without UE support to improve safety and function 05/08/2025 SLS 10 sec L 14 sec R without UE use 06/05: Progressing: SLS R 10s, L 5s STG Duration 5 weeks Draw Machine Operator Goal (LTG) Pt will demonstrate gait 150' on even and uneven ground without AD without LOB for improved function. LTG Duration 10 weeks 2 Impairment Strength Impairment Decreased B hip strength Short Term Goal (STG Pt will improve B hip strength by 1 MMT points to ) improve function 06/05: Progressing, all improved by 1-2 MMT points except R hip abd maintained at 4+/5 STG Duration 5 weeks Draw Machine Operator Goal (LTG) Pt will improve B hip strength by 3 MMT points to improve function 06/05: Progressing LTG Duration 10 weeks 1 Impairment ROM Impairment L knee ROM Draw Machine Operator Goal (LTG) Pt will improve L knee ROM to reach 0 degrees of passive ext and 120 degrees of active flexion to improve function. 05/03/25: good progression: L knee AROM supine 127 deg. Did not measure extension. 05/08/2025 AROM lacking 6 deg ext to 123 deg flexion start of session 06/05: Progressing, AROM lacking 3 deg ext, after STM 2 deg ext LTG Duration 10 weeks Assessment Summary Assessment Pt restricted in stretching of R glute d/t pinching of R hip flexors but not improved with joint mobs, will trial STM/TFM to R hip flexor tendons to achieve glute stretch. Pt performed balance training well with min post weight shift with head turns but without LOB while on foam and only 2 small LOBs during hurdles without UE support. Physical Therapy Plan Frequency and Duration Frequency of 2x/Week Treatment Duration of 12 treatment (weeks) Plan of Care Start 04/06/25 Date Plan of Care End 06/29/25 Date Therapeutic Interventions Therapeutic Balance Training,Gait Training,Home Exercise Program, Interventions Joint Mobilizations,Lymphedema Management,Manual Therapy,Neuromuscular Re-education,Patient/Caregiver Education,Soft Tissue Mobilization,Therapeutic Activities,Therapeutic Exercises Modalities Cold Pack/Ice Massage,Hot Packs,Ultrasound Next Visit Focus/Plan Next Note Type Treatment Note Next Visit Plan balance training with reaching out of COG and head turns, stepping strategies for balance, B glute stretching, mobs to L knee for full ext
--- NOTE | 2025-06-19 20:36 | PT.OTN ---
Current Diagnoses Bilateral primary osteoarthritis of knee (06/19/25) Presence of left artificial knee joint (06/19/25) Physical Therapy Treatment Note PT OP: Lower Back/Lower Extremity Start: 06/14/25 16:15 Freq: Status: Active Protocol: Document 06/19/25 14:35 IRONER OR PRESSER (Rec: 06/19/25 15:19 IRONER OR PRESSER Laptop) Out-Patient Physical Therapy Visit Information Visit Information Visit Type Treatment Note Visit Start Time 14:35 Visit Stop Time 15:18 Visit Number 17 Number of DEALER SUPPORT TECHNICIAN Visits 0 Progress Note Due 07/05/25 OP-PT Subjective Patient Comments Patient Comments Pt and spouse report pt has a planned surgery for cardiac pacemaker 07/03, PT and pt plan to D/C pt from PT on 06/28 and to return with clearance from insurance counselor with new referral to focus on balance training. Pt reports no other changes since last session, low level chronic pain to R thigh Gym Equipment Shuttle Balance red Details normal KUSHAL ant/post position Reps/Duration 10 mins Comments VC for upright gaze for upright stance, SBA with improved balance and minimal board edge tapping Therapeutic Exercises Standing Exercises Calf stretch at wall Standing Exercise Gastroc and soleus Name Side left Reps/Minutes 30s x2 each Manual Therapy Treatment Consent Patient gave verbal Yes consent for manual treatment Soft Tissue Mobilization post leg Body Location L gastroc soleus, HS Mobilization Type Instrument Assisted,Rolling Intensity/Depth Moderate Body Position prone with ankles propped on bolster Comments IASTM and STM to muscles with significant tightness and tenderness noted to lateral gastroc/soleus Physical Therapy Assessment Goals 3 Impairment Balance Short Term Goal (STG Pt will improve improved balance with SLS of 30s on ) each LE on even ground without UE support to improve safety and function 05/08/2025 SLS 10 sec L 14 sec R without UE use 06/05: Progressing: SLS R 10s, L 5s STG Duration 5 weeks Correction Goal (LTG) Pt will demonstrate gait 150' on even and uneven ground without AD without LOB for improved function. LTG Duration 10 weeks 2 Impairment Strength Impairment Decreased B hip strength Short Term Goal (STG Pt will improve B hip strength by 1 MMT points to ) improve function 06/05: Progressing, all improved by 1-2 MMT points except R hip abd maintained at 4+/5 STG Duration 5 weeks Licensed Occupational Therapist Goal (LTG) Pt will improve B hip strength by 3 MMT points to improve function 7/29: Progressing LTG Duration 10 weeks 1 Impairment ROM Impairment L knee ROM Correction Goal (LTG) Pt will improve L knee ROM to reach 0 degrees of passive ext and 120 degrees of active flexion to improve function. 05/03/25: good progression: L knee AROM supine 127 deg. Did not measure extension. 05/08/2025 AROM lacking 6 deg ext to 123 deg flexion start of session 06/05: Progressing, AROM lacking 3 deg ext, after STM 2 deg ext LTG Duration 10 weeks Assessment Summary Assessment Pt with increased tightness and tenderness to L gastroc /soleus this session with decreased pressure tolerance to IASTM, added soleus stretch against wall to HEP, noted improved balance on shuttle balance this session. Discussed D/C on 06/28 before pacemaker surgery on 07/03 . Physical Therapy Plan Frequency and Duration Frequency of 2x/Week Treatment Duration of 12 treatment (weeks) Plan of Care Start 04/06/25 Date Plan of Care End 06/29/25 Date Therapeutic Interventions Therapeutic Balance Training,Gait Training,Home Exercise Program, Interventions Joint Mobilizations,Lymphedema Management,Manual Therapy,Neuromuscular Re-education,Patient/Caregiver Education,Soft Tissue Mobilization,Therapeutic Activities,Therapeutic Exercises Modalities Cold Pack/Ice Massage,Hot Packs,Ultrasound Next Visit Focus/Plan Next Note Type Treatment Note Next Visit Plan STM to L gastroc/soleus, balance training with reaching out of COG and head turns, stepping strategies for balance, B glute stretching, mobs to L knee for full ext [ End ]
--- NOTE | 2025-06-21 13:11 | PT-IP ANOTE ---
1310- Called pt's spouse, Aye, to inquire about tardiness for session at 1300, she mixed up the appointment time and will be unable to make it to current scheduled session. No need to inform about no-show policy as plan is to D/C pt next week.
--- NOTE | 2025-06-26 17:59 | PT.OTN ---
Current Diagnoses Bilateral primary osteoarthritis of knee (06/26/25) Presence of left artificial knee joint (06/26/25) Physical Therapy Treatment Note PT OP: Lower Back/Lower Extremity Start: 06/14/25 16:15 Freq: Status: Active Protocol: Document 06/26/25 14:39 RFID ENGINEER (Rec: 06/26/25 15:23 RFID ENGINEER Laptop) Out-Patient Physical Therapy Visit Information Visit Information Visit Type Treatment Note Visit Start Time 14:36 Visit Stop Time 15:22 Visit Number 18 Number of LEGAL FILE CLERK Visits 0 Progress Note Due 07/05/25 OP-PT Subjective Patient Comments Patient Comments Pt reports LLE has been pain free without issues but has mild pain to R knee today. Massage therapist continues to work on L HS every morning. Pt and spouse report balance has stayed the same, not getting worse but not improving and still using 4WW. Plan is still to D/C at next session, 06/28. L knee ext resting at 4 degrees active to 2 degrees. Therapeutic Exercises Sidelying Exercises Hip Abd Sidelying Exercise 1. SLR w/ mod T at post hip 2. Knee flexed w/ VC-Min TC Name for neutral hip Side bilateral Resistance against gravity Reps/Minutes 1. x10 each side 2. x10 each side Comments improved compensations with knee flexed 90 degrees, verbally changed HEP Sitting Exercises seated hip abd with band Sitting Exercise prior to balance training Name Side bilateral Resistance L3 Reps/Minutes 1 min x2 Standing Exercises HS stretch Standing Exercise hip ER to target medial HS, updated HEP verbally Name Side left Reps/Minutes 1 minx2 Manual Therapy Treatment Consent Patient gave verbal Yes consent for manual treatment Soft Tissue Mobilization Knee ext stretch Body Location L knee Intensity/Depth Moderate Body Position supine with heel prop Comments manual ant>post pressure for post knee stretch, tightness noted to medial HS tendons but improved from last session. Neuro Re-Education Treatment Balance Activities SLS Details modified with toe touch, after glute med activation Surface even Comments CGA R 20s toes, 60s mod toe touch and light finger touch L 12s toes, 60s without toe touch but min-mod 1UE fingertip hold Physical Therapy Assessment Goals 3 Impairment Balance Short Term Goal (STG Pt will improve improved balance with SLS of 30s on ) each LE on even ground without UE support to improve safety and function 05/08/2025 SLS 10 sec L 14 sec R without UE use 06/05: Progressing: SLS R 10s, L 5s STG Duration 5 weeks Addiction Treatment Counselor Goal (LTG) Pt will demonstrate gait 150' on even and uneven ground without AD without LOB for improved function. LTG Duration 10 weeks 2 Impairment Strength Impairment Decreased B hip strength Short Term Goal (STG Pt will improve B hip strength by 1 MMT points to ) improve function 06/05: Progressing, all improved by 1-2 MMT points except R hip abd maintained at 4+/5 STG Duration 5 weeks Shelter Goal (LTG) Pt will improve B hip strength by 3 MMT points to improve function 06/05: Progressing LTG Duration 10 weeks 1 Impairment ROM Impairment L knee ROM Addiction Treatment Counselor Goal (LTG) Pt will improve L knee ROM to reach 0 degrees of passive ext and 120 degrees of active flexion to improve function. 05/03/25: good progression: L knee AROM supine 127 deg. Did not measure extension. 05/08/2025 AROM lacking 6 deg ext to 123 deg flexion start of session 06/05: Progressing, AROM lacking 3 deg ext, after STM 2 deg ext LTG Duration 10 weeks Assessment Summary Assessment Pt's L HS tightness improved this session but still with minimal medial HS tendon tightness, changed HEP HS stretch to ER to target medial portion of HS. Pt continues to demonstrate weakness to B hip abd with significant compensation to achieve full ROM against gravity, improved with knee flex and changed HEP. Pt continues to demonstrate decreased balance via SLS but able to perform 60s with modified form. Plan to D/C at next session 06/28. Physical Therapy Plan Frequency and Duration Frequency of 2x/Week Treatment Duration of 12 treatment (weeks) Plan of Care Start 04/06/25 Date Plan of Care End 06/29/25 Date Next Visit Focus/Plan Next Note Type Discharge Summary
--- NOTE | 2025-06-28 16:00 | PT.OPDS ---
Current Diagnoses Bilateral primary osteoarthritis of knee (06/28/25) Presence of left artificial knee joint (06/28/25) Visit Care Team Role Provider Type Chriss Mayorga MD Family Provider Physician Primary Care Provider Specialty: Internal Medicine Address: [address] [place] [address], [facility] [address], [place], [address] Email: [email or web address] Chhaya Conteh MD Attending Provider Physician Referring Provider Specialty: Orthopedics Orthopedic Surgery Address: [address] [place] [address], [facility] Email: [email or web address] Visit Number Visit Number 19 Discharge Summary PT OP: Lower Back/Lower Extremity Start: 06/14/25 16:15 Freq: Status: Active Protocol: Document 06/28/25 14:35 CAN STERILIZER (Rec: 06/28/25 15:22 CAN STERILIZER Laptop) Out-Patient Physical Therapy Visit Information Visit Information Visit Type Discharge Summary Visit Start Time 14:35 Visit Stop Time 15:18 Visit Number 19 Number of ASSISTANT ACTIVITIES DIRECTOR Visits 0 OP-PT Subjective Patient Comments Patient Comments Pt reports he woke up feeling a little weaker today but without pain to LLE, has been working with massage therapy to improve soft tissue restrictions to LLE for improved ROM. Hip Strength Hip Manual Muscle Testing L Flexion (L2) 4 Good Extension (S1) 4- Good- Abduction 4 Good R Flexion (L2) 4+ Good+ Extension (S1) 4- Good- Abduction 4+ Good+ Therapeutic Exercises Sitting Exercises seated hip abd with band Sitting Exercise prior to balance training Name Side bilateral Resistance L3 Reps/Minutes 1 min x2 Standing Exercises calf stretch on step Standing Exercise 4 step with B HRs Name Side bilateral Reps/Minutes 1 min x2 HS stretch Standing Exercise on 6 step Name Side left Reps/Minutes 1 minx2 Manual Therapy Treatment Consent Patient gave verbal Yes consent for manual treatment Soft Tissue Mobilization Knee ext stretch Body Location L knee Intensity/Depth Moderate Body Position supine with heel prop Comments 1 min x3, manual ant>post pressure for post knee stretch, tightness noted to medial HS tendons but improved from last session. Neuro Re-Education Treatment Balance Activities SLS Surface even Comments R: 23s L: 9s Physical Therapy Assessment Goals 3 Impairment Balance Short Term Goal (STG Pt will improve improved balance with SLS of 30s on ) each LE on even ground without UE support to improve safety and function 05/08/2025 SLS 10 sec L 14 sec R without UE use 06/05: Progressing: SLS R 10s, L 5s 06/28: Not met, R 23s, L 9s STG Duration 5 weeks Not met Mobile Health Vehicle Operator Goal (LTG) Pt will demonstrate gait 150' on even and uneven ground without AD without LOB for improved function. 06/28: Not met, balance continues to be impaired requiring 4WW for safety, using SPC with CGA with small LOBs during turns. LTG Duration 10 weeks Not met 2 Impairment Strength Impairment Decreased B hip strength Short Term Goal (STG Pt will improve B hip strength by 1 MMT points to ) improve function 06/05: Progressing, all improved by 1-2 MMT points except R hip abd maintained at 4+/5 06/28: MET, all improved by at least 1 MMT. STG Duration 5 weeks MET Mobile Health Vehicle Operator Goal (LTG) Pt will improve B hip strength by 3 MMT points to improve function 06/05: Progressing 06/28: Not met, L hip flex, ext, and R hip flex improved by 1 MMT, L hip abd improved by 2 MMT, R hip ext improved by 3 MMT, and R hip abd improved by 5 MMT. LTG Duration 10 weeks Not met 1 Impairment ROM Impairment L knee ROM [facility] Goal (LTG) Pt will improve L knee ROM to reach 0 degrees of passive ext and 120 degrees of active flexion to improve function. 05/03/25: good progression: L knee AROM supine 127 deg. Did not measure extension. 05/08/2025 AROM lacking 6 deg ext to 123 deg flexion start of session 06/05: Progressing, AROM lacking 3 deg ext, after STM 2 deg ext 06/28: Not met, flex 125 degrees actively, ext 2 degrees actively LTG Duration 10 weeks Not Met Assessment Summary Assessment Pt has demonstrated progress towards all goals to meet short term strength goal for B hips and L knee ROM goal with significant progress noted after tandem seeing massage therapy to work on soft tissue restrictions of L quad and HS but continues to lack 2 degrees of full knee ext not meeting goal. Pt has demonstrated plateau in progress with minimal progress towards balance, not meeting goals for balance via B SLS or ambulation without AD. Pt will be discharging d/t progress then plateau with LLE and lack of functional impairment with LLE as well as cardiac procedure. Pt recommended to return to PT once cleared by weapons officer naval activity and PCP after procedure with focus on balance training for fall prevention. D/C PT Physical Therapy Plan Discharge Physical Therapy Discharge Reasons Plateau in Progress Discharge Comments See assessment, pt will D/C d/t plateau in progress, no further functional impairment of original impairment to LLE, and d/t upcoming cardiac procedure. D/C PT and return after cardiac clearance with focus on balance training.
== END 2025-07-12 08:38 | disposition home or self-care (01) ==
LOC: PHYS 14:30
PROVIDERS: Family Provider Internal Medicine; PCP Internal Medicine; Referring Provider Orthopaedic Surgery Foot and Ankle Surgery; Visit Provider Orthopaedic Surgery Foot and Ankle Surgery
DX: M17.0 Bilateral primary osteoarthritis of knee (principal); Z96.652 Presence of left artificial knee joint
CPT/HCPCS: 97110; 97112; 97116; 97140; 97162

== ENCOUNTER → 2025-09-07 15:23 | Outpatient (CLI) | payer MEDICARE, SELFPAY ==
[2024-12-20 09:45] VITALS: BMI 24.0
[2025-09-07 18:09] LABS: Prostate Specific Antigen < 0.064 ng/mL (0.10-4.00)
== END ==
PROVIDERS: Family Provider Internal Medicine; PCP Internal Medicine; Referring Provider Urology; Visit Provider Urology
DX: C61 Malignant neoplasm of prostate (principal); Z79.818 Long term (current) use of other agents affecting estrogen receptors and estrogen levels
CPT/HCPCS: 36415; 84153

== ENCOUNTER 2025-09-11 12:53 | Outpatient (CLI) | payer MEDICARE, SELFPAY ==
[2024-12-20 09:45] VITALS: BMI 24.0
[2025-09-11] VITALS (9 sets, daily range): BP systolic 141–159; BP diastolic 81–105; PULSE 59–86; RESP 14–16; TEMP 36.4; O2SAT 97–100
[2025-09-11] MEDS: MIDAZOLAM 2 MG/2 ML VIAL IV (15:05)
[2025-09-11] MEDS: BETAMETHASONE 30 MG/5 ML MDV 12 MG INJ (15:10)
--- NOTE | 2025-09-11 15:24 | P.PCN_ITS ---
Date/Time/Diagnoses Date of procedure: 09/11/25 Time of procedure: 15:24 Pre-procedure diagnosis: 1. HNP WITH RADICULAR FEATURES, 2. MULTILEVEL CENTRAL STENOSIS, Post-procedure diagnosis: same Procedure Notes Procedure: 1. FLUOROSCOPICALLY GUIDED CONTRAST CONTROLLED INTERLAMINAR EPIDURAL STEROID INJECTION - L3/4 Indications: Lionel is referred by Dr. Mayorga for treatment of Bilateral Foraminal Stenosis L>R LE symptoms. Physician: Tyshawn Abdullahi Total Fluoroscopy time (seconds): 10 Total sedation minutes: 12 Complications: none Procedure in detail & Post-procedure care: FINDINGS Multilevel Central Spinal Stenosis with Nerve Root Compression DESCRIPTION OF PROCEDURE Fluoroscopically guided, contrast-controlled L3/4 translaminar epidural steroid injection. Following review of allergy and review of potential side effects and complications, including, but not necessarily limited to, infection, allergic reaction, local tissue breakdown, temporary as well as permanent nerve injury, paralysis, stroke and possible , the patient indicated that the patient understood and agreed to proceed. An informed consent document was signed by the patient, witnessed by a nurse, and placed in the patient's chart. Additionally, other treatment options including modalities, medications, and physical therapy were reviewed with the patient. After review of previous anaesthesic history and IV conscious sedation the patient was deemed safe to proceed with today?s procedure with IV conscious sedation as ASA class II designation. Safety time-out was performed to confirm patient ID, procedure to be performed and site of procedure. IV sedation was accomplished with a combination of 2mg of Versed was administered by the RN after DO order, titrated to patient comfort during the course of the procedure while the patient remained responsive to all verbal commands. In the prone position, following sterile prep and drape of the lumbar region, the L3/4 translaminar space was identified fluoroscopically. The skin was anesthetized via a 25-gauge, 1.5-inch needle with 1% lidocaine solution. At this point, a 22-gauge short bevel spinal needle was atraumatically introduced and advanced under fluoroscopic guidance into the region of the L3/4 translaminar space. Depth was confirmed on lateral view. Radiological data, including multiple fluoroscopic views of the lumbar spine, reveal a spinal needle at the L3/4 translaminar space. Lateral views then show placement of the needle in the epidural space. Subsequent views show contrast material flowing superiorly and inferiorly in the epidural space. No vascular or intrathecal uptake is observed. At this point, using loss of resistance technique with saline and air, the epidural space was entered. This was confirmed following negative aspiration with injection of approximately 1.5 cc of Isovue 200, showing excellent epidural flow without vascular or intrathecal uptake. At this point, 1cc of 0.25% mar gerry solution combined with 3cc or 10mg of dexamethasone and 12mg of betamethasone was injected without incident. The patient tolerated the procedure well without signs or symptoms of complications prior to transfer to the recovery area continued monitoring without incident. The patient was then transferred to the recovery area where they were observed for an appropriate period of time after the injection. The patient reported a VAS score of 6 prior to the procedure and a post- procedure VAS of 0. POST OP INSTRUCTIONS The patient was provided a Pain Log to continue to record their response to the target-specific procedure prior to follow-up visit with their referring physician. Additionally, specific post-injection care instructions and a contact number to our office were provided if concerns arise regarding possible complications associated with the procedure are suspected.
== END 2025-09-11 15:47 | disposition home or self-care (01) ==
PROVIDERS: Family Provider Internal Medicine; PCP Internal Medicine; Referring Provider Physical Medicine & Rehabilitation; Visit Provider Physical Medicine & Rehabilitation
DX: M51.16 Intervertebral disc disorders with radiculopathy, lumbar region (principal); M48.061 Spinal stenosis, lumbar region without neurogenic claudication
CPT/HCPCS: 62323; 99152; J0702; J1100; J2250

== ENCOUNTER 2025-10-25 14:30 | Outpatient (RCR) | payer MEDICARE, SELFPAY ==
[2024-12-20 09:45] VITALS: BMI 24.0
--- NOTE | 2025-08-30 13:24 | PT.OIE ---
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) (07/19/12) Facet arthropathy, lumbar History of COVID-19 (2023) History of endovascular stent graft for abdominal aortic aneurysm (AAA) (09/21/17) History of myocardial infarction History of radiation therapy History of TIAs HTN (hypertension) Hyperlipidemia, mixed (09/22/11) Left knee DJD Lumbar stenosis with neurogenic claudication Mild neurocognitive disorder Nocturia Overactive bladder PAD (peripheral artery disease) Paroxysmal atrial fibrillation (~04/2023) Peripheral edema Persistent atrial fibrillation 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) Prostate cancer Skin cancer Spinal stenosis Spondylolisthesis at L4-L5 level Status post repair of abdominal aortic aneurysm (AAA) using straight graft (09/21/17) Urinary Incontinence Past Surgical History (Last Reviewed 08/01/25 @ 08:23 by Tyshawn Abdullahi DO) H/O endovascular stent graft for abdominal aortic aneurysm (~06/2019) History of appendectomy History of coronary artery bypass graft x 3 (~12/2009) History of ear surgery History of knee replacement procedure of right knee History of surgical procedure (03/06/14) History of surgical procedure (10/07/15) History of surgical procedure (10/14/15) History of surgical procedure (07/30/17) Hx laparoscopic cholecystectomy Hx of bilateral cataract extraction Status post left knee replacement (~11/2024) Visit Care Team Role Provider Type Chriss Mayorga MD Attending Provider Physician Family Provider Primary Care Provider Referring Provider Specialty: Internal Medicine Address: [address] [place] [address], [address], [place], [address] Email: [email or web address] Physical Therapy Initial Evaluation PT OP: Lower Back/Lower Extremity Start: 08/30/25 13:00 Freq: Status: Active Protocol: Document 08/30/25 12:15 DCW (Rec: 08/30/25 13:24 DCW [id number]) Out-Patient Physical Therapy Visit Information Visit Information Visit Type Initial Evaluation Visit Start Time 12:15 Visit Stop Time 13:00 Visit Number 1 Number of COACH Visits 0 Progress Note Due 09/29/25 Evaluation Information Evaluation Date 08/30/25 Current Condition History of Current Condition Onset Date Nine month history Current Complaints Right TKA History of Current Pt is an 89 year old male presenting for physical Condition therapy evaluation nine months s/p R TKA. Pt has already undergone post-op therapy, and was discharged two months ago secondary to progress plateau. Pt returns today feeling like his balance and walking has declined since discharge. Pt has been somewhat consistent with his prior HEP, but admits that he hasn' t been as compliant recently. Notes that stairs are difficult, has 4 [address]T his home, and they hurt a bit. Pt and his have transitioned their master BR to the first floor to limit stairs, which has been beneficial. OP-PT Subjective Patient Comments Patient Comments I just don't feel very stable, I weave a lot when I walk. Coyle Balance Assessment Evaluation Sitting to Standing Independent w/out Hands Ability Unsupported Stance Safely- 2 minutes Sitting Unsupported, Safely- 2 minutes Feet on Floor Standing to Sitting Safely, Minimal Hand Use Ability Transfer Ability Safely, Minimal Hand Use Unsupported Stance- Safely, 10 seconds Eyes Closed Unsupported Stance- Independent, 1 minute Eyes Open Reaching Forward Confidently, 10 inches Standing Pick- Up Object From Independent/Safe Floor Look Behind Shoulder Shifts Weight Well - Standing Turning 360 Degrees Turns slowly, but safely Unsupported Stance, (I)- 8 Steps in 20 secs Alternating Feet on Stair Unsupported Tandem Holds Tandem- 30 seconds Stance Unilateral Leg Lifts Leg/Holds 5-10 secs Stance Total Score Coyle Total Score ( 52 out of 56 points) Functional Tests Dynamic Gait Index (DGI) Score OP Gait Assessment Comments Gait Comments Pt ambulates with decreased step length bilaterally, shuffling feet, and a Trendelenburg gait pattern Hip Strength Hip Manual Muscle Testing Right Flexion (L2) 4- Good- Extension (S1) 4+ Good+ Abduction 4+ Good+ Adduction 4 Good External Rotation 4+ Good+ Internal Rotation 4+ Good+ Left Flexion (L2) 3+ Fair+ Extension (S1) 4 Good Abduction 4+ Good+ Adduction 4 Good External Rotation 4+ Good+ Internal Rotation 4+ Good+ Knee Strength Knee Manual Muscle Testing Right Flexion (S2) 4+ Good+ Extension (L3) 4+ Good+ Left Flexion (S2) 4- Good- Extension (L3) 4 Good Neuro Re-Education Treatment Balance Activities Tandem Details Tandem stance SLS Details SLS Physical Therapy Assessment Rehab Potential Rehabilitation Good Potential Evaluation Complexity Number of Personal 3 or More Factors/ Comorbidities Number of Body 4 or More Systems Impaired Clinical Unstable Presentation at Evaluation Impairments Impairments Activity Tolerance,Balance,Functional Activities, Functional Mobility,Gait,Pain,Soft Tissue Mobility, Strength,Tone Goals Two Impairment Slight increased falls risk, per DGI () Assisted Goal (LTG) PT to improve DGI score by at least three points to in order to decreased risk of falls LTG Duration 11/28/25 One Impairment Pt ambulates with decreased stride length and shuffling feet Assisted Goal (LTG) Pt to complete six minute walk test without any instances of shuffling feet LTG Duration 11/28/25 Assessment Summary Assessment Pt presents with signs and symptoms consistent with referring diagnosis. Pt continues to experience lingering limitations nine months s/p R TKA, including decrease balance, mild gait dysfunction, LE weakness, and decreased activity tolerance. Pt will likely benefit from skilled therapeutic intervention focusing on strengthening, static/dynamic balance challenges, gait training, and increasing activity tolerance. Physical Therapy Plan Frequency and Duration Frequency of 2x/Week Treatment Plan of Care Start 08/30/25 Date Plan of Care End 11/28/25 Date Therapeutic Interventions Therapeutic Balance Training,Gait Training,Home Exercise Program, Interventions Joint Mobilizations,Manual Therapy,Neuromuscular Re- education,Patient/Caregiver Education,Self-Care/Home Management,Soft Tissue Mobilization,Therapeutic Activities,Therapeutic Exercises Modalities Cold Pack/Ice Massage,Electric Stimulation,Hot Packs Next Visit Focus/Plan Next Note Type Treatment Note
--- NOTE | 2025-09-03 14:47 | PT-OP ANOTE ---
PT did not show to his 09/03 appointment. Therapist phoned to speak with pt, a family member answered, noted he was not available, and that they must have forgotten about the appointment.
--- NOTE | 2025-09-06 13:56 | PT-OP ANOTE ---
Left message regarding no show and no show policy, also left phone number for front end engineer and left time and date of next appointment on message.
--- NOTE | 2025-09-06 13:59 | PT.OTN ---
Addendum entered and electronically signed by Antonette Amador 09/12/25 11:00: Treatment note this session NOT evaluation Original Note: Current Diagnoses Pain in left knee (09/06/25) Physical Therapy Treatment Note PT OP: Lower Back/Lower Extremity Start: 08/30/25 13:00 Freq: Status: Active Protocol: Document 09/06/25 12:59 AB (Rec: 09/06/25 13:48 AB [id number]) Out-Patient Physical Therapy Visit Information Visit Information Visit Type Initial Evaluation Visit Start Time 13:02 Visit Stop Time 13:45 Visit Number 2 Number of TELEMEDICINE PHYSICIAN Visits 1 Progress Note Due 09/29/25 OP-PT Subjective Patient Comments Patient Comments Patient reports he has had no falls, but did have some near falls, comments he has good recovery. L knee ext measured at patient's request, Lacking 7 deg. Therapeutic Exercises Supine Exercises Modified Rtae stretch Side bilateral Reps/Minutes 60 sec with AROM knee flexion X 10 also X 2 each LE Comments verbal cues Sitting Exercises seated hip abd with band Side bilateral Resistance level 4 then level 5 band Reps/Minutes one min X 1 each band Comments Patient reports feeling more balanced post this ex AROM DF Reps/Minutes X 15 Comments verbal cues Standing Exercises hip strengthening Standing Exercise hip abd and marching with 2 finger support Name Side bilateral Reps/Minutes X 10 each LE each ex Comments Verbal cues to avoid toeing out gastroc stretch Standing Exercise on step Name Reps/Minutes 60 sec each LE Comments verbal cues step ups Standing Exercise with UE use Name Side bilateral Reps/Minutes X 10 each Comments HEP review HS stretch on step Reps/Minutes 60 sec each LE Comments HEP review hip ext Reps/Minutes X 10 leaning on mat at counter height X 3 standing holding mat at counter Physical Therapy Assessment Goals Two Impairment Slight increased falls risk, per DGI () Long-Term Goal (LTG) PT to improve DGI score by at least three points to 22 24 in order to decreased risk of falls LTG Duration 11/28/25 One Impairment Pt ambulates with decreased stride length and shuffling feet Account Liaison Goal (LTG) Pt to complete six minute walk test without any instances of shuffling feet LTG Duration 11/28/25 Assessment Summary Assessment HEP review and HEP condensed to one program as able within session. Patient ed importance of length and strength in muscles for upright posture to dec foot scuffing due to flexed posture( stiff illipsoas, HS and calf muscles, dec AROM DF hip ext ) Physical Therapy Plan Frequency and Duration Frequency of 2x/Week Treatment Plan of Care Start 08/30/25 Date Plan of Care End 11/28/25 Date Next Visit Focus/Plan Next Note Type Treatment Note Next Visit Plan Heel raise, sidelying clamshell, knee flexion stretch onstair not reviewed, not yet addressed on condensed HEP, Inc focus on Balance next session, Patient requests use of leg press.
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
--- NOTE | 2025-09-20 15:16 | PT.OTN ---
Current Diagnoses Pain in left knee (09/20/25) Physical Therapy Treatment Note PT OP: Lower Back/Lower Extremity Start: 08/30/25 13:00 Freq: Status: Active Protocol: Document 09/20/25 14:30 DCW (Rec: 09/20/25 15:16 DCW [id number]) Out-Patient Physical Therapy Visit Information Visit Information Visit Type Treatment Note Visit Start Time 14:30 Visit Stop Time 15:15 Visit Number 4 Number of SHANK STAPLER Visits 0 Progress Note Due 09/29/25 Evaluation Information Evaluation Date 08/30/25 OP-PT Subjective Patient Comments Patient Comments Still pretty anxious with stairs. Reports he is having an increase in pain on his right anterior hip and right thigh Therapeutic Exercises Supine Exercises Piriformis Supine Exercise Name Opposite knee to shoulder Side bilateral Single KtC Supine Exercise Name Single KtC Side bilateral Hamstring Stretch Supine Exercise Name Hamstring stretch Side bilateral Standing Exercises hip ext Standing Exercise Hip Extension Name Resistance Green loop Equipment Used @ rail Other Exercises Hurdles Other Exercise Name Hurdles Resistance 4# Pepper Equipment Used @ rail Comments Forward, Side-stepping Resisted Ambulation Other Exercise Name Resisted side-stepping Resistance Green loop Manual Therapy Treatment Joint Mobilizations Knee Joint B knee Direction A<->P Grade III Body Position Hooklying Physical Therapy Assessment Impairments Impairments Activity Tolerance,Balance,Functional Activities, Functional Mobility,Gait,Pain,Soft Tissue Mobility, Strength,Tone Goals Two Impairment Slight increased falls risk, per DGI () Penitentiary Goal (LTG) PT to improve DGI score by at least three points to 24 in order to decreased risk of falls LTG Duration 11/28/25 One Impairment Pt ambulates with decreased stride length and shuffling feet Penitentiary Goal (LTG) Pt to complete six minute walk test without any instances of shuffling feet LTG Duration 11/28/25 Assessment Summary Assessment Good response to treatment, pt feeling good overall with activities today, noted improvement following stretch and joint mobs. Continue focus on balance, gait , mobility, and strengthening. Physical Therapy Plan Frequency and Duration Frequency of 2x/Week Treatment Plan of Care Start 08/30/25 Date Plan of Care End 11/28/25 Date Next Visit Focus/Plan Next Note Type Progress Note Next Visit Plan Heel raise, sidelying clamshell, knee flexion stretch onstair not reviewed, not yet addressed on [employer] focus on Balance next session, Patient requests use of leg press.
--- NOTE | 2025-10-03 12:14 | PT.OTN ---
Current Diagnoses Pain in left knee (10/03/25) Physical Therapy Treatment Note PT OP: Lower Back/Lower Extremity Start: 08/30/25 13:00 Freq: Status: Active Protocol: Document 10/03/25 11:30 DCW (Rec: 10/03/25 12:14 DCW [id number]) Out-Patient Physical Therapy Visit Information Visit Information Visit Type Progress Note Visit Start Time 11:30 Visit Stop Time 12:15 Visit Number 5 Number of LABOUR MARKET ECONOMIST Visits 0 Progress Note Due 11/02/25 Evaluation Information Evaluation Date 08/30/25 OP-PT Subjective Patient Comments Patient Comments My leg is just absolutely killing me, for two weeks now. Admits he hasn't been able to do most of his exercises, his walking has been impacted. Notes pain is largely on the lateral thigh Therapeutic Exercises Supine Exercises ITB Stretch Supine Exercise Name ITB Stretch Side bilateral Piriformis Supine Exercise Name Opposite knee to shoulder Side bilateral Single KtC Supine Exercise Name Single KtC Side bilateral Hamstring Stretch Supine Exercise Name Hamstring stretch Side bilateral Manual Therapy Treatment Soft Tissue Mobilization L HS Body Location HS, ITB Mobilization Type Cross-Friction,Rolling Intensity/Depth Moderate Body Position Hooklying Comments lacking 4 deg ext L knee AROM Lacking 2 deg post manual Joint Mobilizations Knee Joint B knee Direction A<->P Grade III Body Position Hooklying Physical Therapy Assessment Impairments Impairments Activity Tolerance,Balance,Functional Activities, Functional Mobility,Gait,Pain,Soft Tissue Mobility, Strength,Tone Goals Two Impairment Slight increased falls risk, per DGI () Cabin Furnishings Installer Goal (LTG) Pt to improve DGI score by at least three points to 22/ 24 in order to decreased risk of falls LTG Duration 11/28/25 One Impairment Pt ambulates with decreased stride length and shuffling feet Correction Goal (LTG) Pt to complete six minute walk test without any instances of shuffling feet LTG Duration 11/28/25 Assessment Summary Assessment Pt continues to exhibit shuffling with gait, struggling more today secondary to increased knee and hip pain, but did note improvement following today's session. Physical Therapy Plan Frequency and Duration Frequency of 2x/Week Treatment Plan of Care Start 08/30/25 Date Plan of Care End 11/28/25 Date Therapeutic Interventions Therapeutic Balance Training,Gait Training,Home Exercise Program, Interventions Joint Mobilizations,Manual Therapy,Neuromuscular Re- education,Patient/Caregiver Education,Self-Care/Home Management,Soft Tissue Mobilization,Therapeutic Activities,Therapeutic Exercises Modalities Cold Pack/Ice Massage,Electric Stimulation,Hot Packs Next Visit Focus/Plan Next Note Type Treatment Note Next Visit Plan Heel raise, sidelying clamshell, knee flexion stretch onstair not reviewed, not yet addressed on [employer] focus on Balance next session, Patient requests use of leg press.
--- NOTE | 2025-10-10 17:50 | PT.OTN ---
Current Diagnoses Pain in left knee (10/10/25) Physical Therapy Treatment Note PT OP: Lower Back/Lower Extremity Start: 08/30/25 13:00 Freq: Status: Active Protocol: Document 10/10/25 17:00 DCW (Rec: 10/10/25 17:50 DCW [id number]) Out-Patient Physical Therapy Visit Information Visit Information Visit Type Treatment Note Visit Start Time 17:00 Visit Stop Time 17:45 Visit Number 6 Number of CHUCKING MACHINE SET UP OPERATOR TOOL Visits 0 Progress Note Due 11/02/25 Evaluation Information Evaluation Date 08/30/25 OP-PT Subjective Patient Comments Patient Comments I'm about the same as last time. Admits his leg is still quite sore. Manual Therapy Treatment Soft Tissue Mobilization L HS Body Location HS, ITB, Low back Mobilization Type Cross-Friction,Rolling Intensity/Depth Moderate Body Position Sidelying Comments lacking 4 deg ext L knee AROM Lacking 2 deg post manual Joint Mobilizations Knee Joint B knee Direction A<->P Grade III Body Position Hooklying Physical Therapy Assessment Impairments Impairments Activity Tolerance,Balance,Functional Activities, Functional Mobility,Gait,Pain,Soft Tissue Mobility, Strength,Tone Goals Two Impairment Slight increased falls risk, per DGI () Regional Facilities Specialist Goal (LTG) Pt to improve DGI score by at least three points to in order to decreased risk of falls LTG Duration 11/28/25 One Impairment Pt ambulates with decreased stride length and shuffling feet Shelter Goal (LTG) Pt to complete six minute walk test without any instances of shuffling feet LTG Duration 11/28/25 Assessment Summary Assessment Reviewed some HEP, pt doing ITB stretch incorrectly, bending knee and creating increased torsion through knee, so corrected to straight leg. Otherwise, spent time working on stretching/STM to help decrease tone. Physical Therapy Plan Frequency and Duration Frequency of 2x/Week Treatment Plan of Care Start 08/30/25 Date Plan of Care End 11/28/25 Date Therapeutic Interventions Therapeutic Balance Training,Gait Training,Home Exercise Program, Interventions Joint Mobilizations,Manual Therapy,Neuromuscular Re- education,Patient/Caregiver Education,Self-Care/Home Management,Soft Tissue Mobilization,Therapeutic Activities,Therapeutic Exercises Modalities Cold Pack/Ice Massage,Electric Stimulation,Hot Packs Next Visit Focus/Plan Next Note Type Treatment Note Next Visit Plan Heel raise, sidelying clamshell, knee flexion stretch onstair not reviewed, not yet addressed on [employer] focus on Balance next session, Patient requests use of leg press.
--- NOTE | 2025-10-15 15:15 | PT.OTN ---
Current Diagnoses Pain in left knee (10/15/25) Physical Therapy Treatment Note PT OP: Lower Back/Lower Extremity Start: 08/30/25 13:00 Freq: Status: Active Protocol: Document 10/15/25 14:30 DCW (Rec: 10/15/25 15:15 DCW [id number]) Out-Patient Physical Therapy Visit Information Visit Information Visit Type Treatment Note Visit Start Time 14:30 Visit Stop Time 15:15 Visit Number 7 Number of EMISSION SPECIALIST Visits 0 Progress Note Due 11/02/25 Evaluation Information Evaluation Date 08/30/25 OP-PT Subjective Patient Comments Patient Comments Lousy today, notes the right leg is really bothering him. Therapeutic Exercises Supine Exercises ITB Stretch Supine Exercise Name ITB Stretch Side bilateral Piriformis Supine Exercise Name Opposite knee to shoulder Side bilateral Single KtC Supine Exercise Name Single KtC Side bilateral Hamstring Stretch Supine Exercise Name Hamstring stretch Side bilateral Other Exercises Resisted Ambulation Other Exercise Name Resisted side-stepping, fwd/bkwd Resistance Lv 2 loop Manual Therapy Treatment Soft Tissue Mobilization L HS Body Location HS, ITB, Low back Mobilization Type Cross-Friction,Rolling Intensity/Depth Moderate Body Position Sidelying Joint Mobilizations Knee Joint B knee Direction A<->P Grade III Body Position Hooklying Physical Therapy Assessment Impairments Impairments Activity Tolerance,Balance,Functional Activities, Functional Mobility,Gait,Pain,Soft Tissue Mobility, Strength,Tone Goals Two Impairment Slight increased falls risk, per DGI () Snf Goal (LTG) Pt to improve DGI score by at least three points to 22/ 24 in order to decreased risk of falls LTG Duration 11/28/25 One Impairment Pt ambulates with decreased stride length and shuffling feet Filler Room Attendant Goal (LTG) Pt to complete six minute walk test without any instances of shuffling feet LTG Duration 11/28/25 Assessment Summary Assessment Continuing to work on decreasing pain and improving strength/mobility. Pt still experiencing increased pain in right hip/knee. Did discuss follow-up with PCP, potentially see about referral for ortho. Physical Therapy Plan Frequency and Duration Frequency of 2x/Week Treatment Plan of Care Start 08/30/25 Date Plan of Care End 11/28/25 Date Therapeutic Interventions Therapeutic Balance Training,Gait Training,Home Exercise Program, Interventions Joint Mobilizations,Manual Therapy,Neuromuscular Re- education,Patient/Caregiver Education,Self-Care/Home Management,Soft Tissue Mobilization,Therapeutic Activities,Therapeutic Exercises Modalities Cold Pack/Ice Massage,Electric Stimulation,Hot Packs Next Visit Focus/Plan Next Note Type Treatment Note Next Visit Plan Heel raise, sidelying clamshell, knee flexion stretch onstair not reviewed, not yet addressed on [employer] focus on Balance next session, Patient requests use of leg press.
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
--- NOTE | 2025-10-22 15:14 | PT.OTN ---
Current Diagnoses Pain in left knee (10/22/25) Physical Therapy Treatment Note PT OP: Lower Back/Lower Extremity Start: 08/30/25 13:00 Freq: Status: Active Protocol: Document 10/22/25 14:30 DCW (Rec: 10/22/25 15:13 DCW [id number]) Out-Patient Physical Therapy Visit Information Visit Information Visit Type Treatment Note Visit Start Time 14:30 Visit Stop Time 15:15 Visit Number 8 Number of SCIENCE AND OPERATIONS OFFICER Visits 0 Progress Note Due 11/02/25 Evaluation Information Evaluation Date 08/30/25 OP-PT Subjective Patient Comments Patient Comments I didn't sleep at all last night. Reports he is having a lot of hip and leg pain. Gym Equipment Shuttle Recovery unilateral Resistance 37# Reps/Time 20 ea B squat Resistance 75# Reps/Time 3x10 Therapeutic Exercises Sitting Exercises long arc quad Side bilateral Resistance 5# Reps/Minutes 3x10 each side Manual Therapy Treatment Consent Patient gave verbal Yes consent for manual treatment Soft Tissue Mobilization L HS Body Location HS, ITB, Low back Mobilization Type Cross-Friction,Rolling Intensity/Depth Moderate Body Position Sidelying Physical Therapy Assessment Impairments Impairments Activity Tolerance,Balance,Functional Activities, Functional Mobility,Gait,Pain,Soft Tissue Mobility, Strength,Tone Goals Two Impairment Slight increased falls risk, per DGI () [facility] Goal (LTG) Pt to improve DGI score by at least three points to 24 in order to decreased risk of falls LTG Duration 11/28/25 One Impairment Pt ambulates with decreased stride length and shuffling feet Chcf Goal (LTG) Pt to complete six minute walk test without any instances of shuffling feet LTG Duration 11/28/25 Assessment Summary Assessment Pt planning to transition to Pelvic Floor PT soon, will discharge from skilled therapy following next visit, understands he will need a new referral to return to PT for his knee/hip/back in the future if needed, following Pelvic Floor PT. Physical Therapy Plan Frequency and Duration Frequency of 2x/Week Treatment Plan of Care Start 08/30/25 Date Plan of Care End 11/28/25 Date Therapeutic Interventions Therapeutic Balance Training,Gait Training,Home Exercise Program, Interventions Joint Mobilizations,Manual Therapy,Neuromuscular Re- education,Patient/Caregiver Education,Self-Care/Home Management,Soft Tissue Mobilization,Therapeutic Activities,Therapeutic Exercises Modalities Cold Pack/Ice Massage,Electric Stimulation,Hot Packs Next Visit Focus/Plan Next Note Type Discharge Summary
--- NOTE | 2025-10-25 15:19 | PT.OPDS ---
Current Diagnoses Pain in left knee (10/25/25) Visit Care Team Role Provider Type Chriss Mayorga MD Attending Provider Physician Family Provider Primary Care Provider Referring Provider Specialty: Internal Medicine Address: [address] [place] [address], [address], [place], [address] Email: [email or web address] Visit Number Visit Number 9 Discharge Summary PT OP: Lower Back/Lower Extremity Start: 08/30/25 13:00 Freq: Status: Active Protocol: Document 10/25/25 14:30 DCW (Rec: 10/25/25 15:18 DCW [id number]) Out-Patient Physical Therapy Visit Information Visit Information Visit Type Discharge Summary Visit Start Time 14:30 Visit Stop Time 15:15 Visit Number 9 Number of SUPERVISOR PAINT DEPARTMENT Visits 0 Progress Note Due 11/02/25 Evaluation Information Evaluation Date 08/30/25 OP-PT Subjective Patient Comments Patient Comments Pt still not sleeping well, struggling with pain. Planning to discharge following today's visit, planning to get new referral for pelvic floor therapy. Neuro Re-Education Treatment Balance Activities Cone taps Details Cone taps Equipment // bars, 5# Pepper Hurdles Details Hurdles/Foam Equipment // bars Comments Forward, Lateral Foam Details NBOS, X1 Physical Therapy Assessment Impairments Impairments Activity Tolerance,Balance,Functional Activities, Functional Mobility,Gait,Pain,Soft Tissue Mobility, Strength,Tone Goals Two Impairment Slight increased falls risk, per DGI () Paraprofessional Interpreter Goal (LTG) Pt to improve DGI score by at least three points to 22/ 24 in order to decreased risk of falls LTG Duration 11/28/25 One Impairment Pt ambulates with decreased stride length and shuffling feet Paraprofessional Interpreter Goal (LTG) Pt to complete six minute walk test without any instances of shuffling feet LTG Duration 11/28/25 Assessment Summary Assessment Discharging from skilled physical therapy at this time. Pt transitioning to pelvic floor PT, understands he will require a new referral in order to return to PT in the future for his low back, hip, and knee. Physical Therapy Plan Frequency and Duration Frequency of 2x/Week Treatment Plan of Care Start 08/30/25 Date Plan of Care End 11/28/25 Date Therapeutic Interventions Therapeutic Balance Training,Gait Training,Home Exercise Program, Interventions Joint Mobilizations,Manual Therapy,Neuromuscular Re- education,Patient/Caregiver Education,Self-Care/Home Management,Soft Tissue Mobilization,Therapeutic Activities,Therapeutic Exercises Modalities Cold Pack/Ice Massage,Electric Stimulation,Hot Packs Discharge Physical Therapy Discharge Comments Transition to Pelvic Floor PT Next Visit Focus/Plan Next Note Type Discharge Summary
== END 2025-10-26 09:58 | disposition home or self-care (01) ==
LOC: PHYS 14:30
PROVIDERS: Family Provider Internal Medicine; PCP Internal Medicine; Referring Provider Internal Medicine; Visit Provider Internal Medicine
DX: M25.562 Pain in left knee (principal)
CPT/HCPCS: 97110; 97112; 97140; 97163